=== PATIENT | female | born 1975 | race American Indian/Alaskan Native ===

== ENCOUNTER 2016-10-19 11:21 | Emergency (ER) | payer MEDICARE ==
--- NOTE | 2016-10-19 11:53 | Emergency Department Report ---
Chief Complaint: Chest Pain Stated Complaint: CHEST PAIN/MIGRAINE/SWELLING ON RT SIDE/VOMITTING - HPI History of Present Illness: 41-year-old female past medical history bipolar, migraines, hypertension, diabetes, lupus presents with 5 days of worsening body aches swelling in hands feet, intermittent chest pain and complaint of pain radiating from her neck down to her right arm. Denies any fever or chills or dysuria or abdominal pain , is complaining of chest pain neck pain radiating to arm and swelling of her hands face and feet - ROS Review of Systems: Muscular pain, chest pain, swelling of extremities - Exam Vital Signs: Vital Signs 10/19/16 11:27 Temperature 98.7 F Pulse Rate 92 H Respiratory 20 Rate Blood Pressure 138/91 O2 Sat by Pulse 100 Oximetry Physical Exam: Heart S1-S2, patient awake alert and oriented 3, lungs clear MSE screening note: Focused history and physical exam performed. Due to findings the following was ordered: Screening Assessment/Plan/Differential Dx: Possible lupus flare 1- This initial assessment/diagnostic orders/clinical plan/ treatment(s) is/are subject to change based on pt's health status, clinical progression and re- assessment by fellow clinical providers in the ED. Further treatment and workup at subsequent clinical provers discretion. Patient/guardians urged not to elope from ED as their condition may be serious if not clinically assessed and managed. 2-sedimentation rate, CRP, BMP, troponin, CK, CK-MB, EKG, chest x-ray, C3-C4, UA , urine protein, urine creatinine workup for possible lupus flare 3-EKG sinus ED Disposition for MSE Condition: Stable
[2016-10-19] MEDS ORDERED: ZOFRAN ODT PO ONE ×2 (12:05→15:47)
[2016-10-19 12:27] LABS: Hematocrit 35.3 % (30.3-42.9); Hemoglobin 11.6 gm/dl (10.1-14.3); Mean Corpuscular HGB Conc 33 % (30-34); Mean Corpuscular Hemoglobin 28 pg (28-32); Mean Corpuscular Volume 85 fl (79-97); Platelet Count 417 K/mm3 (140-440); Red Blood Count 4.13 M/mm3 (3.65-5.03); Red Cell Distribution Width 14.8 % (13.2-15.2); White Blood Count 10.1 K/mm3 (4.5-11.0)
[2016-10-19 12:42] LABS: BUN/Creatinine Ratio 6.36; Blood Urea Nitrogen 7 mg/dL (7-17); Carbon Dioxide 25 mmol/L (22-30); Glucose 126 mg/dL (65-100)
[2016-10-19 12:43] LABS: Anion Gap 18 mmol/L; Chloride 97.9 mmol/L (98-107); Sodium 137 mmol/L (137-145)
[2016-10-19 12:45] LABS: Creatine Kinase MB 1.5 ng/mL (0.0-4.0)
[2016-10-19 12:46] LABS: Alanine Aminotransferase 33 units/L (7-56); Albumin 4.3 g/dL (3.9-5); Alkaline Phosphatase 87 units/L (35-129); Bilirubin,Total 0.2 mg/dL (0.1-1.2); Creatine Kinase 203 units/L (30-135); Total Protein 8.5 g/dL (6.3-8.2)
[2016-10-19 12:47] LABS: Bilirubin,Direct < 0.2 mg/dL (0-0.2)
[2016-10-19 12:54] LABS: Erythrocyte Sedimentation Rate 56 mm/Hr (0-20)
[2016-10-19 13:04] LABS: Basophils % (Manual) 0 % (0.0-1.8); Blastocytes % (Manual) 0 %; RBC Morphology Normal
[2016-10-19 13:05] LABS: Diff Status Complete
[2016-10-19 14:05] LABS: Bilirubin,Urine NEG (Negative); Blood,Urine NEG (Negative); Ketones,Urine NEG (Negative); Leukocyte Esterase,Urine NEG (Negative); Mucus,Urine FEW /HPF; Nitrite,Urine NEG (Negative); Protein,Urine <15 mg/dL mg/dL (Negative); Urobilinogen,Urine < 2.0 mg/dL (<2.0)
--- NOTE | 2016-10-19 14:19 | XRay Report ---
Chest 2 views: Compared to 08/05/16. History: Chest pain. Findings: Normal cardiomediastinal silhouette. Trachea is midline. No consolidation, pneumothorax or pleural effusion. Impression: No acute cardiopulmonary findings.
[2016-10-19] MEDS ORDERED: ZOFRAN ODT ONE (15:45)
[2016-10-19] MEDS ORDERED: TYLENOL PO ONE (15:45)
[2016-10-19] MEDS ORDERED: DILAUDID IV ONE (22:47)
[2016-10-19] MEDS ORDERED: MAGNESIUM SULFATE 2GM/50ML 50 ML IV ONE (22:48)
--- NOTE | 2016-10-19 22:54 | Emergency Department Report ---
ED General Adult HPI - General Chief complaint: Chest Pain Stated complaint: CHEST PAIN/MIGRAINE/SWELLING ON RT SIDE/VOMITTING Time Seen by Provider: 10/19/16 22:14 Source: patient, family Mode of arrival: Ambulatory Limitations: No Limitations - History of Present Illness Initial comments: Patient is a 41-year-old female with history of TIA, bipolar affective disorder , lupus, chronic migraines presented today because of right-sided headache radiated down to her right shoulder and now across her chest. Patient states that this is been going on for the last few days. She is on sumatriptan at home and has been taking along with magnesium without significant relief. In the past she has received Dilaudid with relief. She has no fevers, chills, cough, nausea, vomiting, diaphoresis, shortness of breath. Has had headaches like this in the past and sees Dr. Vásquez is her neurologist. She currently does not have a manager engine. No numbness, weakness, difficulty talking. Patient has difficulty walking at baseline and this is not changed. No recent trauma including no falls or car accidents. Severity scale (0 -10): 8 - Related Data Home Medications Medication Instructions Recorded Confirmed Last Taken Albuterol Sulfate [Ventolin HFA] 2 puff INHALATION PRN PRN 04/10/14 08/10/16 09:30 Fluticasone/Salmeterol [Advair 1 inhalation INHALATION BID PRN 04/10/1408/13/14 10:30 Diskus 250-50 mcg] Furosemide 2 tab PO DAILY 04/10/14 08/10/16 03/23/15 08:00 Simvastatin 1 tab PO DAILY 04/10/14 08/10/16 03/23/15 08:00 SUMAtriptan SUCCINATE [Imitrex] 100 mg PO PRN PRN 03/10/15 08/10/16 03/23/15 08: 00 Ferrous Sulfate [Feosol 325 MG tab] 325 mg PO QDAY 08/10/16 08/10/16 Unknown Riboflavin 400 mg PO QDAY 08/10/16 08/10/16 Unknown Previous Rx's Medication Instructions Recorded Last Taken Type Levothyroxine [Synthroid] 137 mcg PO DAILY@0600 #30 tablet 08/12/16 Unknown Rx Lisinopril [Zestril TAB] 20 mg PO DAILY #30 tablet 08/12/16 Unknown Rx Morphine ER [Ms Contin ER] 15 mg PO QDAY PRN #7 tablet 08/12/16 Unknown Rx OLANzapine [ZyPREXA] 15 mg PO DAILY #14 tablet 08/12/16 Unknown Rx Topiramate [Topamax] 200 mg PO DAILY #14 tablet 08/12/16 Unknown Rx HYDROmorphone [Dilaudid] 1 mg PO Q8HR PRN #8 tablet 10/20/16 Unknown Rx Allergies Allergy/AdvReac Type Severity Reaction Status Date / Time aspirin Allergy Hives Verified 08/30/15 14:19 butorphanol tartrate Allergy Seizure Verified 08/30/15 14:19 [From Stadol] latex Allergy Hives Verified 08/30/15 14:19 NSAIDS (Non-Steroidal Allergy Hives Verified 08/05/16 09:32 Anti-Inflamma ED Review of Systems ROS: Stated complaint: CHEST PAIN/MIGRAINE/SWELLING ON RT SIDE/VOMITTING Other details as noted in HPI Comment: All other systems reviewed and negative Constitutional: denies: chills, fever Respiratory: denies: cough, shortness of breath Cardiovascular: chest pain Gastrointestinal: denies: abdominal pain, vomiting Genitourinary: denies: dysuria Skin: denies: rash Neurological: headache. denies: weakness, numbness, paresthesias, confusion, abnormal gait ED Past Medical Hx - Past Medical History Hx Hypertension: Yes Hx Diabetes: Yes (TYPE 2 1995;) Hx GERD: Yes Hx Arthritis: Yes Hx Headaches / Migraines: Yes (MIGRAINES) Hx Seizures: Yes Hx Psychiatric Treatment: Yes Hx Asthma: Yes Additional medical history: lupus. high cholesterol. bipolar. depression. anxiety PANIC ATTACK. Hypothyroidism - Surgical History Hx Breast Surgery: Yes (right lumpectomy) Additional Surgical History: "rectal repair". lump removed from right arm - Social History Smoking Status: Never Smoker Substance Use Type: None - Medications Home Medications: Home Medications Medication Instructions Recorded Confirmed Last Taken Type Albuterol Sulfate [Ventolin HFA] 2 puff INHALATION PRN PRN 04/10/14 08/10/16 09:30 History Fluticasone/Salmeterol [Advair 1 inhalation INHALATION BID PRN 04/10/1408/13/14 10:30 History Diskus 250-50 mcg] Furosemide 2 tab PO DAILY 04/10/14 08/10/16 03/23/15 08:00 History Simvastatin 1 tab PO DAILY 04/10/14 08/10/16 03/23/15 08:00 History SUMAtriptan SUCCINATE [Imitrex] 100 mg PO PRN PRN 03/10/15 08/10/16 03/23/15 08: 00 History Ferrous Sulfate [Feosol 325 MG tab] 325 mg PO QDAY 08/10/16 08/10/16 Unknown History Riboflavin 400 mg PO QDAY 08/10/16 08/10/16 Unknown History Levothyroxine [Synthroid] 137 mcg PO DAILY@0600 #30 tablet 08/12/16 Unknown Rx Lisinopril [Zestril TAB] 20 mg PO DAILY #30 tablet 08/12/16 Unknown Rx Morphine ER [Ms Contin ER] 15 mg PO QDAY PRN #7 tablet 08/12/16 Unknown Rx OLANzapine [ZyPREXA] 15 mg PO DAILY #14 tablet 08/12/16 Unknown Rx Topiramate [Topamax] 200 mg PO DAILY #14 tablet 08/12/16 Unknown Rx HYDROmorphone [Dilaudid] 1 mg PO Q8HR PRN #8 tablet 10/20/16 Unknown Rx ED Physical Exam - General Limitations: No Limitations General appearance: alert, other (tearful, appears in pain) - Head Head exam: Present: atraumatic, normal inspection - Eye Eye exam: Present: PERRL - Neck Neck exam: Present: tenderness (diffuse soft tissue tenderness, no midline tenderness, full range of motion). Absent: meningismus - Respiratory Respiratory exam: Present: normal lung sounds bilaterally. Absent: respiratory distress, wheezes - Cardiovascular Cardiovascular Exam: Present: regular rate, normal rhythm - GI/Abdominal GI/Abdominal exam: Present: soft. Absent: distended, tenderness - Extremities Exam Extremities exam: Absent: tenderness - Neurological Exam Neurological exam: Present: alert, oriented X3, CN II-XII intact, other ( sensation intact in all extremities, strength is 5 out of 5 in all extremities) . Absent: motor sensory deficit - Psychiatric Psychiatric exam: Present: flat affect ED Course Vital Signs 10/19/16 10/19/16 10/19/16 11:27 15:34 22:35 Temperature 98.7 F 98.4 F Pulse Rate 92 H 83 94 H Respiratory 20 20 20 Rate Blood Pressure 138/91 140/99 Blood Pressure 146/100 [Left] O2 Sat by Pulse 100 98 100 Oximetry 10/19/16 10/20/16 10/20/16 23:22 00:11 00:42 Temperature Pulse Rate Respiratory 18 20 20 Rate Blood Pressure Blood Pressure [Left] O2 Sat by Pulse 100 Oximetry - Reevaluation(s) Reevaluation #1: 10/20/16 01:13 Patient reassessed and still having significant pain although there was some improvement with the pain medications. 1 mg of Dilaudid given. 10/20/16 01:14 Reevaluation #2: 10/20/16 01:22 Patient reassessed at this time. Patient's pain is under control. I discussed with the patient the lab findings which were nonspecific. No significant abnormalities. I also explained to her x-ray and EKG did not show any significant abnormalities. I had a discussion with her as well as her parents about whether her pain is well-controlled enough for her to go home and be treated outpatient for her if she would prefer admission. Patient states that her pain is well-controlled enough that she should be able to go home. Family agrees with the plan to go home. They're going to set up a appointment with a manager engine. All questions were answered. 10/20/16 01:25 Reevaluation #3: 10/20/16 01:37 Patient states that she takes Dilaudid by mouth 2 mg when she has severe pain. She does not have any Dilaudid at home at this time. We'll give her a short course of 1 mg Dilaudid until she is able to see her doctors. ED Medical Decision Making - Lab Data Result diagrams: 10/19/16 12:08 10/19/16 12:08 - Medical Decision Making Patient's symptoms are most consistent with a complex migraine, however she is having chest pains so an EKG and labs also done Dilaudid ordered for pain Chest x-ray unremarkable per radiology Labs preordered and are unremarkable. Labs and also been sent for lupus workup which likely not come back in the patient's ED stay. EKG shows normal sinus rhythm without any ST-T changes, no S1Q3, there is a slight T-wave inversion in lead 3. The EKG compared to prior from 08/05/2016 and appears very similar Critical care attestation.: If time is entered above; I have spent that time in minutes in the direct care of this critically ill patient, excluding procedure time. ED Disposition Clinical Impression: Musculoskeletal pain Migraine Qualifiers: Migraine type: without aura Status migrainosus presence: without status migrainosus Intractability: not intractable Qualified Code(s): G43.009 - Migraine without aura, not intractable, without status migrainosus Disposition: DISCHARGED TO HOME OR SELFCARE Is pt being admited?: No Does the pt Need Aspirin: No Condition: Stable Instructions: Musculoskeletal Pain (ED), Migraine Headache (ED) Additional Instructions: Please follow up with the primary care doctor in the next 3-5 days. Please also make appointment with a manager engine as well as a neurologist within the next 1-2 weeks. Return to the emergency room if you have any numbness, weakness , talking or walking, vomiting, vision changes or any other significant new symptoms. Do not drive or operate heavy machinery while taking pain medication as it will make you drowsy. Prescriptions: HYDROmorphone [Dilaudid] 1 mg PO Q8HR PRN #8 tablet PRN Reason: Pain
[2016-10-19] MEDS ORDERED: DECADRON IV ONE (23:02)
[2016-10-19] MEDS ORDERED: REGLAN IV ONE (23:02)
--- NOTE | 2016-10-19 23:50 | Admit Criteria Form ---
Admission Criteria Documentation: CARDIOLOGY GRG Clinical Indications for Admission to Inpatient Care ( Place 'X' for any and all applicable criteria): Hospital admission is needed for appropriate care of the patient because of ANY ONE of the following (1): [ ] I. Hemodynamic instability as indicated by ALL of the following (1)(2)(3) (4)(5) [ ]a) Vital signs or other findings not as expected for chronic patient condition or baseline [ ]b) Instability indicated by ANY ONE of the following: [ ]i) Hypotension [ ]ii) Symptomatic Tachycardia unresponsive to treatment ( e.g., analgesia, fluids, sedation as indicated) [ ]iii) Inadequate perfusion indicated by ANY ONE of the following: [ ] 1) Lactic acidosis (> 2 mmol/L) [ ] 2) New abnormal capillary refill (> 3 seconds) [ ] 3) Reduced urine output [ ] 4) New altered mental status [ ]iv) Orthostatic vital sign changes unresponsive to treatment (e.g., fluids) [ ]v) IV inotropic or vasopressor medication required to maintain adequate blood pressure or perfusion [ ] II. Severe heart failure as indicated by ANY ONE of the following(17)(18) [ ]a) Respiratory distress [ ]b) Hypotension [ ]c) Anasarca (refractory to outpatient therapy) [ ]d) Cardiac arrhythmias of immediate concern [ ]e) Myocardial ischemia [ ] III. Cardiac arrhythmias or findings of immediate concern indicated by ANY ONE of the following (19)(20): [ ] a) Heart rhythms that are inherently dangerous or unstable indicated by ANY ONE of the following (21)(22)(23): [ ] i) Resuscitated ventricular fibrillation or cardiac arrest [ ] ii) Ventricular escape rhythm [ ] iii) Sustained ventricular tachycardia (30 seconds or more of ventricular rhythm at greater than 100 beats per minute) [ ] iv) Nonsustained ventricular tachycardia and ANY ONE of the following: [ ] 1) Suspected cardiac ischemia as cause or consequence of ventricular tachycardia [ ] 2) In setting of acute myocarditis [ ] b) Unstable cardiac conduction defects indicated by ANY ONE of the following(23)(24)(25) [ ] i) Type II second-degree atrioventricular block [ ]ii) Third-degree atrioventricular block [ ]iii) New-onset left bundle branch block with suspected myocardial ischemia [ ]c) Any heart rhythm and ANY ONE of the following (21)(22)(26)(27) (28) [ ] i) Continuous long-term ECG monitoring needed (e.g., initiation of drug requiring monitoring for more than 24 hours) [ ] ii) Patient has automatic implanted cardioverter defibrillator that is repeatedly firing, malfunctioning, or in need of immediate adjustment of settings beyond the scope of ambulatory or observation care [ ]d) Heart rhythms of concern due to ANY ONE of the following: [ ] i) Hypotension [ ] ii) Respiratory distress [ ] iii) Association with other significant symptoms (e.g., bradycardia with syncope or ongoing dizziness, supraventricular tachycardia with chest pain (14)(15)(17) [ ] IV. Monitoring for cardiac contusion beyond the scope of observation care needed [A](30)(31)(32) [ ] V. Surgical or device complication (e.g., valve replacement complication , pacemaker dysfunction) (35)(41)(44)(45)(46) [ ] . Inpatient palliative care needed. [B](49) Also use Inpatient Palliative Care Criteria [ ] VII. Nonbacterial thrombotic (marantic) endocarditis (36)(43)(47)(48) [ X] VIII. Cardiology condition, symptom, or finding for which emergency and observation care has failed or are not considered appropriate. [ ] IX. Acute valvular disease requiring inpatient as indicated by ANY ONE of the following (41) [ ]a) Acute valvular regurgitation (42) [ ]b) Noninfectious valvulitis (43) [ ]c) Obstructive valve thrombosis [ ]d) Paravalvular leak [ ]e) Other significant valvular disorder remaining after emergency or observation level of care (as appropriate) [ ]X. Pericardial disease requiring inpatient treatment as indicated by ANY ONE of the following (33)(34)(35)(36)(37) [ ]a) Suspected tamponade (38)(39)(40) [ ]b) Hemopericardium [ ]c) Other significant pericardial disorder remaining after emergency or observation level of care (as appropriate) [ ] XI. Cardiac ischemia beyond scope of emergency and observation care. [ ] XII. Hypertension requiring inpatient treatment as indicated by ANY ONE of the following (6)(7)(8) [ ]a) SBP greater than 220 mm Hg or DBP greater than 120 mmHg despite treatment [ ]b) SBP greater than 140 mm Hg or DBP greater than 100 mm Hg with evidence of acute end organ damage as indicated by ANY ONE of the following [ ] i) Altered mental status [ ] ii) Acute renal failure as indicated by new onset of ANY ONE of the following (9)(10)(11)(12)(13) [ ]1) 3-fold rise in serum creatinine from baseline [ ]2) Serum creatinine greater than 4 mg/dL ( 354 micromoles/L) with acute rise greater than 0.5 mg/dL (44.2 micromoles/L) [ ]3) Reduction of more than 75% in estimated glomerular filtration rate from baseline [ ]4) Estimated glomerular filtration rate less than 35 mL/min/1.73m2 (0.59 mL/sec/1.73m2) in child up to 18 years of age [ ]5) Cessation of urine output indicated by ALL of the following [ ]A. Adequate volume status [ ]B. Inadequate urine output as indicated by ANY ONE of the following [ ]a. Urine output less than 0.3 mL/kg/hr for 24 hours [ ]b. Anuria (urine output less than 0.1 mL/kg/hr) for 12 hours [ ] iii) Aortic dissection [ ] iv) Myocardial Ischemia [ ] v) Left ventricular heart failure [ ]vi) Retinal Hemorrhage [ ]vii) Other significant finding [ ]c) Hypertension in child requiring inpatient treatment as indicated by ALL of the following(14)(15)(16) [ ] i) Outpatient treatment not effective, not available, or not appropriate [ ]ii) SBP or DBP greater than 95th percentile for age [ ]iii) Evidence of acute end organ damage as indicated by ANY ONE of the following [ ]1) Altered mental status [ ]2) Acute renal failure as indicated by new onset of ANY ONE of the following(9)(10)(11)(12)(13) [ ]A. 3-fold rise in serum creatinine from baseline [ ]B. Serum creatinine greater than 4 mg/dL (354 micromoles/L) with acute rise greater than 0.5 mg/dL (44.2 micromoles/L) [ ]C. Reduction of more than 75% in estimated glomerular filtration rate from baseline [ ]D. Estimated glomerular filtration rate less than 35 mL/min/1.73m2 (0.59 mL/sec/1.73m2) in child up to 18 years of age [ ]E. Cessation of urine output indicated by ALL of the following [ ]a. Adequate volume status [ ]b. Inadequate urine output as indicated by ANY ONE of the following [ ]i) Urine output less than 0.3 mL/kg/hr for 24 hours [ ]ii) Anuria ( urine output less than 0.1 mL/kg/hr) for 12 hours [ ]3) Severe headache [ ]4) Visual disturbance [ ]5) Retinal hemorrhage [ ]6) Other significant finding [ ]XIII. Complications of transplanted heart indicated by ANY ONE of the following(61): [ ]a) Acute graft rejection requiring inpatient management (eg, intravenous immunosuppression)(62)(63) [ ]b) Acute graft heart failure indicated by ANY ONE of the following(64): [ ]i) Hemodynamic instability [ ]ii) Cardiac arrhythmias of immediate concern [ ]iii) Pulmonary edema that is very severe (eg, mechanical ventilation needed, imminent or likely, need for 100% oxygen to keep oxygen saturation above 90%) [ ]iv) Pulmonary edema that is persistent as indicated by ALL of the following: [ ]1) New need for oxygen therapy to keep oxygen saturation above 90% (or increased FiO2 need from baseline) [ ]2) Has not improved sufficiently with emergency department or observation care IV diuretics or other heart failure treatments[E] [ ]v) Altered mental status that is severe or persistent [ ]vi) Increased creatinine (new on laboratory test) with reduction of more than 50% in estimated glomerular filtration rate from baseline [ ]vii) Progressively (ongoing) rising creatinine (known from past laboratory test) with reduction of more than 25% in estimated glomerular filtration rate from baseline [ ]viii) Acute renal failure [ ]ix) Acute peripheral ischemia (eg, examination shows pulseless, cool, mottled, or cyanotic extremity) [ ]x) Pulmonary artery catheter monitoring needed [ ]xi) Other sign or symptom of heart failure requiring inpatient treatment (ie, too severe or not responsive to outpatient and observation care treatment) [ ]c) Infection requiring inpatient management (eg, Hemodynamic instability, need for intravenous antimicrobial treatment)(66)(67)(68)(69)(70) [ ]d) Cardiac allograft vasculopathy requiring inpatient management ( eg evidence of cardiac ischemia)(71) [ ]e) Other complication of transplanted heart (eg, stroke, severe pulmonary hypertension, severe valvular dysfunction) requiring inpatient management(72) The original [facility] content created by [facility] has been revised. The portions of the content which have been revised are identified through the use of italic text or in bold, and [facility] has neither reviewed nor approved the modified material. All other unmodified content is copyright [facility] [employer]. Please see references footnoted in the original [facility] [employer] edition 2016 Admission Criteria Met: Yes
[2016-10-20] MEDS ORDERED: DILAUDID IV ONE (00:27)
[2016-10-20 01:44] VITALS: BP 144/93
== END 2016-10-20 02:15 | disposition home or self-care (01) ==
LOC: ED 11:21
DX: G43.009 Migraine without aura, not intractable, without status migrainosus (principal); M79.1 Myalgia; R07.9 Chest pain, unspecified; I10 Essential (primary) hypertension; E11.9 Type 2 diabetes mellitus without complications; M19.90 Unspecified osteoarthritis, unspecified site; K21.9 Gastro-esophageal reflux disease without esophagitis; R56.9 Unspecified convulsions; J45.909 Unspecified asthma, uncomplicated; E78.00 Pure hypercholesterolemia, unspecified; F32.9 Major depressive disorder, single episode, unspecified; E03.9 Hypothyroidism, unspecified; Z88.6 Allergy status to analgesic agent; Z91.040 Latex allergy status
CPT/HCPCS: 36415; 71020; 80048; 80074; 81001; 81025; 82550; 82553; 82570; 82962; 84166; 84484; 85007; 85025; 85652; 86140; 86160; 86225; 87086; 93005; 93010; 96365; 96375; 96376; 99284; J1100; J1170; J2765; J3475; Q0162

== ENCOUNTER 2017-03-16 11:22 | Emergency (ER) | payer MEDICARE ==
[2017-03-16 12:24] VITALS: BP 116/80
[2017-03-16 13:12] LABS: Hematocrit 33.7 % (30.3-42.9); Hemoglobin 10.9 gm/dl (10.1-14.3); Mean Corpuscular HGB Conc 33 % (30-34); Mean Corpuscular Hemoglobin 26 pg (28-32); Mean Corpuscular Volume 81 fl (79-97); Platelet Count 432 K/mm3 (140-440); Red Blood Count 4.14 M/mm3 (3.65-5.03); Red Cell Distribution Width 12.8 % (13.2-15.2); White Blood Count 8.7 K/mm3 (4.5-11.0)
[2017-03-16 13:59] LABS: Alanine Aminotransferase 11 units/L (7-56); Albumin 3.6 g/dL (3.9-5); Albumin/Globulin Ratio 0.9 %; Alkaline Phosphatase 88 units/L (35-129); Anion Gap 16 mmol/L; BUN/Creatinine Ratio 8.75; Blood Urea Nitrogen 7 mg/dL (7-17); Carbon Dioxide 20 mmol/L (22-30); Chloride 104.7 mmol/L (98-107); Glucose 111 mg/dL (65-100); Potassium 3.6 mmol/L (3.6-5.0); Sodium 137 mmol/L (137-145); Total Protein 7.6 g/dL (6.3-8.2)
[2017-03-16 14:48] LABS: Basophils % (Manual) 0 % (0.0-1.8); Blastocytes % (Manual) 0 %
[2017-03-16 14:49] LABS: Anisocytosis 1+; Diff Status Complete; Ovalocytes 1+; Stomatocytes Rare
== END 2017-03-16 19:40 | disposition left against medical advice (07) ==
LOC: ED 11:22
DX: M32.9 Systemic lupus erythematosus, unspecified (principal); Z53.21 Procedure and treatment not carried out due to patient leaving prior to being seen by health care provider
CPT/HCPCS: 36415; 80053; 81025; 85007; 85025

== ENCOUNTER 2017-11-04 14:41 | Emergency (ER) | payer MEDICARE ==
[2017-11-04] MEDS ORDERED: NACL 0.9% 1000 ML 1,000 ML IV ONE (18:02)
--- NOTE | 2017-11-04 18:04 | Emergency Department Report ---
Blank Doc - Documentation Documentation: She is a 42-year-old female past medical history of fibromyalgia who states that she is having a fibromyalgia flareup since is typical for she says IV pain medicine and fluids help her order blood work and IV pain medicine if workup is unremarkable we'll send patient
[2017-11-04] MEDS ORDERED: MORPHINE ONE ×2 (18:16→20:27)
[2017-11-04] MEDS ORDERED: MORPHINE IV ONE ×2 (18:44→19:56)
[2017-11-04 18:52] LABS: Albumin 4.2 g/dL (3.9-5); BUN/Creatinine Ratio 8; Blood Urea Nitrogen 7 mg/dL (7-17); Calcium 9.5 mg/dL (8.4-10.2); Hemolysis Index 133
[2017-11-04] MEDS ORDERED: SUBLIMAZE IV ONE (19:00)
[2017-11-04 19:05] LABS: Alanine Aminotransferase 15 units/L (7-56)
[2017-11-04] MEDS ORDERED: ZOFRAN IV ONE (19:05)
[2017-11-04] MEDS ORDERED: ZOFRAN ONE (19:07)
[2017-11-04 19:10] LABS: Mean Corpuscular HGB Conc 30 % (30-34); Mean Corpuscular Hemoglobin 27 pg (28-32); Mean Corpuscular Volume 91 fl (79-97); Platelet Count 351 K/mm3 (140-440); Red Cell Distribution Width 14.6 % (13.2-15.2)
[2017-11-04 19:28] LABS: Hematocrit 39.9 % (30.3-42.9); Hemoglobin 11.8 gm/dl (10.1-14.3)
[2017-11-04 20:03] LABS: Anisocytosis 1+; Eosinophils % (Manual) 0 % (0.0-4.3); Total Cells Counted 100
[2017-11-04 20:04] LABS: Hypochromasia 1+; Ovalocytes Few; Platelet Estimate Consistent w Auto; Poikilocytosis Few
--- NOTE | 2017-11-04 20:13 | Emergency Department Report ---
ED General Adult HPI - General Chief complaint: Pain General Stated complaint: FIBROMYALGIA Source: patient Mode of arrival: Wheelchair Limitations: No Limitations - History of Present Illness Initial comments: 42-year-old female past medical history fibromyalgia, ? Drug-seeking behavior, obesity Presents with acute on chronic pain. Patient's screening by Dr. Noland. On my interview patient is awake alert and oriented 3. 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 Onset/Timin -: week(s) Severity scale (0 -10): 9 Quality: aching Consistency: constant Improves with: none Worsens with: none Associated Symptoms: denies other symptoms Treatments Prior to Arrival: none - Related Data Home Medications Medication Instructions Recorded Confirmed Last Taken Albuterol Sulfate [Ventolin HFA] 2 puff INHALATION PRN PRN 04/10/14 08/10/16 09:30 Fluticasone/Salmeterol [Advair 1 inhalation INHALATION BID PRN 04/10/1408/13/14 10:30 Diskus 250-50 mcg] Furosemide 2 tab PO DAILY 04/10/14 08/10/16 03/23/15 08:00 Simvastatin 1 tab PO DAILY 04/10/14 08/10/16 03/23/15 08:00 SUMAtriptan SUCCINATE [Imitrex] 100 mg PO PRN PRN 03/10/15 08/10/16 03/23/15 08: 00 Ferrous Sulfate [Feosol 325 MG tab] 325 mg PO QDAY 08/10/16 08/10/16 Unknown Riboflavin (Vitamin B2) 400 mg PO QDAY 08/10/16 08/10/16 Unknown [Riboflavin] Previous Rx's Medication Instructions Recorded Last Taken Type Levothyroxine [Synthroid] 137 mcg PO DAILY@0600 #30 tablet 08/12/16 Unknown Rx Lisinopril [Zestril TAB] 20 mg PO DAILY #30 tablet 08/12/16 Unknown Rx Morphine ER [Ms Contin ER] 15 mg PO QDAY PRN #7 tablet 08/12/16 Unknown Rx OLANzapine [ZyPREXA] 15 mg PO DAILY #14 tablet 08/12/16 Unknown Rx Topiramate [Topamax] 200 mg PO DAILY #14 tablet 08/12/16 Unknown Rx HYDROmorphone [Dilaudid] 1 mg PO Q8HR PRN #8 tablet 10/20/16 Unknown Rx Allergies Allergy/AdvReac Type Severity Reaction Status Date / Time aspirin Allergy Hives Verified 03/16/17 12:15 butorphanol tartrate Allergy Seizure Verified 03/16/17 12:15 [From Stadol] latex Allergy Hives Verified 03/16/17 12:15 NSAIDS (Non-Steroidal Allergy Hives Verified 03/16/17 12:15 Anti-Inflamma ED Review of Systems ROS: Stated complaint: FIBROMYALGIA Other details as noted in HPI Constitutional: denies: chills, fever Eyes: denies: eye pain, eye discharge, vision change ENT: denies: ear pain, throat pain Respiratory: denies: cough, shortness of breath, wheezing Cardiovascular: denies: chest pain, palpitations Endocrine: no symptoms reported Gastrointestinal: denies: abdominal pain, nausea, diarrhea Genitourinary: denies: urgency, dysuria, discharge Musculoskeletal: denies: back pain, joint swelling, arthralgia Skin: denies: rash, lesions Neurological: denies: headache, weakness, paresthesias Psychiatric: denies: anxiety, depression Hematological/Lymphatic: denies: easy bleeding, easy bruising ED Past Medical Hx - Past Medical History Hx Hypertension: Yes Hx CVA: Yes Hx Diabetes: Yes Hx GERD: Yes Hx Renal Disease: Yes Hx Arthritis: Yes Hx Headaches / Migraines: Yes (MIGRAINES) Hx Seizures: Yes Hx Psychiatric Treatment: Yes Hx Asthma: Yes Additional medical history: lupus. high cholesterol. bipolar. depression. anxiety PANIC ATTACK. Hypothyroidism - Surgical History Hx Breast Surgery: Yes (right lumpectomy) Additional Surgical History: "rectal repair". lump removed from right arm - Social History Smoking Status: Never Smoker Substance Use Type: None - Medications Home Medications: Home Medications Medication Instructions Recorded Confirmed Last Taken Type Albuterol Sulfate [Ventolin HFA] 2 puff INHALATION PRN PRN 04/10/14 08/10/16 09:30 History Fluticasone/Salmeterol [Advair 1 inhalation INHALATION BID PRN 04/10/1408/13/14 10:30 History Diskus 250-50 mcg] Furosemide 2 tab PO DAILY 04/10/14 08/10/16 03/23/15 08:00 History Simvastatin 1 tab PO DAILY 04/10/14 08/10/16 03/23/15 08:00 History SUMAtriptan SUCCINATE [Imitrex] 100 mg PO PRN PRN 03/10/15 08/10/16 03/23/15 08: 00 History Ferrous Sulfate [Feosol 325 MG tab] 325 mg PO QDAY 08/10/16 08/10/16 Unknown History Riboflavin (Vitamin B2) 400 mg PO QDAY 08/10/16 08/10/16 Unknown History [Riboflavin] Levothyroxine [Synthroid] 137 mcg PO DAILY@0600 #30 tablet 08/12/16 Unknown Rx Lisinopril [Zestril TAB] 20 mg PO DAILY #30 tablet 08/12/16 Unknown Rx Morphine ER [Ms Contin ER] 15 mg PO QDAY PRN #7 tablet 08/12/16 Unknown Rx OLANzapine [ZyPREXA] 15 mg PO DAILY #14 tablet 08/12/16 Unknown Rx Topiramate [Topamax] 200 mg PO DAILY #14 tablet 08/12/16 Unknown Rx HYDROmorphone [Dilaudid] 1 mg PO Q8HR PRN #8 tablet 10/20/16 Unknown Rx ED Physical Exam - General Limitations: No Limitations General appearance: alert, in no apparent distress - Head Head exam: Present: atraumatic, normocephalic - Eye Eye exam: Present: normal appearance, PERRL, EOMI - ENT ENT exam: Present: mucous membranes moist - Neck Neck exam: Present: normal inspection - Respiratory Respiratory exam: Present: normal lung sounds bilaterally. Absent: respiratory distress - Cardiovascular Cardiovascular Exam: Present: regular rate, normal rhythm. Absent: systolic murmur, diastolic murmur, rubs, gallop - GI/Abdominal GI/Abdominal exam: Present: soft, normal bowel sounds - Extremities Exam Extremities exam: Present: normal inspection - Back Exam Back exam: Present: normal inspection - Neurological Exam Neurological exam: Present: alert, oriented X3 - Psychiatric Psychiatric exam: Present: normal affect, normal mood - Skin Skin exam: Present: warm, dry, intact, normal color. Absent: rash ED Course Vital Signs 11/04/17 11/04/17 11/04/17 15:08 18:58 20:46 Temperature 97.7 F Pulse Rate 105 H 98 H Respiratory 16 20 20 Rate Blood Pressure 135/76 Blood Pressure 136/76 [Right] O2 Sat by Pulse 98 99 Oximetry ED Medical Decision Making - Lab Data Result diagrams: 11/04/17 18:16 11/04/17 18:16 - Medical Decision Making A/P: Fibromyalgia flare, diffuse body aches 1-pt awake alert and oriented 3, vital signs stable before discharge 2-as per my discussion with Dr. Noland can offer pt tramadol but pt has history of seizures with opiates, will refrain from doing so to mitgate any seizure acitivty. tylenol prn for pain. I also informed Dr. Noland at patient's potassium level was 5.6. As per Dr. Noland this is negligible 3- patient making arrangements to follow-up with in management and primary care Critical care attestation.: If time is entered above; I have spent that time in minutes in the direct care of this critically ill patient, excluding procedure time. ED Disposition Clinical Impression: Fibromyalgia muscle pain Disposition: DC-01 TO HOME OR SELFCARE Is pt being admited?: No Does the pt Need Aspirin: No Condition: Stable Instructions: Fibromyalgia (ED) Referrals: [facility], [facility] [Provider Group] - 3-5 Days PAIN SPECIALIST [facility] [Provider Group] - 3-5 Days Time of Disposition: 20:19
[2017-11-04 20:46] VITALS: BP 136/76
== END 2017-11-04 20:45 | disposition home or self-care (01) ==
LOC: ED 14:41
DX: M79.7 Fibromyalgia (principal); Z86.73 Personal history of transient ischemic attack (TIA), and cerebral infarction without residual deficits; E11.9 Type 2 diabetes mellitus without complications; M19.90 Unspecified osteoarthritis, unspecified site; G43.909 Migraine, unspecified, not intractable, without status migrainosus; R56.9 Unspecified convulsions; J45.909 Unspecified asthma, uncomplicated; E78.00 Pure hypercholesterolemia, unspecified; F31.9 Bipolar disorder, unspecified; I10 Essential (primary) hypertension; Z88.6 Allergy status to analgesic agent; Z88.8 Allergy status to other drugs, medicaments and biological substances; Z91.040 Latex allergy status
CPT/HCPCS: 36415; 80053; 85007; 85025; 96361; 96374; 96376; 99283; J2270; J2405; J7030

== ENCOUNTER 2017-11-17 21:33 | Emergency (ER) | payer MEDICARE ==
[2017-11-17 22:07] VITALS: BP 140/95
--- NOTE | 2017-11-17 23:27 | XRay Report ---
FINAL REPORT PROCEDURE: Three-view lumbar sacral spine series TECHNIQUE: Lumbar spine radiographs, including AP, lateral, and lumbosacral spot views. CPT 25296 HISTORY: Back pain. COMPARISON: No prior studies are available for comparison. FINDINGS: No fracture or subluxation is visualized. There is mild degenerative disc disease extending from T12-L1 to the L4-5 disc space very small anterior osteophytic spurs present. Disc spaces otherwise are well preserved. Posterior elements appear intact. Facet arthritis appears to be present at the L5-S1 level bilateral IMPRESSION: Mild diffuse degenerative disc disease as described.. Facet arthritis visualized inferiorly. No other abnormalities are identified..
[2017-11-17] MEDS ORDERED: NORCO 5/325 PO ONE (23:57)
--- NOTE | 2017-11-18 00:02 | Emergency Department Report ---
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 and felt low back pain pain described as 5/10 radiating from low back down to right leg burning sensation pain is exacerbated by prolonged standing walking bending twisting patient denies numbness or weakness no paresthesia no loss of decrease in bowel or bladder function patient remains ambulatory to baseline per patient MD Complaint: back pain, back injury Onset/Timin -: days(s) Similar Symptoms Previously: Yes Place: street Radiation: left leg Severity: moderate Severity scale (0 -10): 5 Quality: burning, sharp Consistency: intermittent Improves With: none Worsens With: movement, other (bending twisting ) Context: turning/twisting, bending Associated Symptoms: denies: weakness, chest pain, numbness, difficulty walking , cough, difficulty urinating, diaphoresis, incontinence, fever/chills, constipation, headaches, abdominal pain, loss of appetite, malaise, nausea/ vomiting, rash, seizure, shortness of breath, syncope - Related Data Home Medications Medication Instructions Recorded Confirmed Last Taken Albuterol Sulfate [Ventolin HFA] 2 puff INHALATION PRN PRN 04/10/14 08/10/16 09:30 Fluticasone/Salmeterol [Advair 1 inhalation INHALATION BID PRN 04/10/1408/13/14 10:30 Diskus 250-50 mcg] Furosemide 2 tab PO DAILY 04/10/14 08/10/16 03/23/15 08:00 Simvastatin 1 tab PO DAILY 04/10/14 08/10/16 03/23/15 08:00 SUMAtriptan SUCCINATE [Imitrex] 100 mg PO PRN PRN 03/10/15 08/10/16 03/23/15 08: 00 Ferrous Sulfate [Feosol 325 MG tab] 325 mg PO QDAY 08/10/16 08/10/16 Unknown Riboflavin (Vitamin B2) 400 mg PO QDAY 08/10/16 08/10/16 Unknown [Riboflavin] Previous Rx's Medication Instructions Recorded Last Taken Type Levothyroxine [Synthroid] 137 mcg PO DAILY@0600 #30 tablet 08/12/16 Unknown Rx Lisinopril [Zestril TAB] 20 mg PO DAILY #30 tablet 08/12/16 Unknown Rx Morphine ER [Ms Contin ER] 15 mg PO QDAY PRN #7 tablet 08/12/16 Unknown Rx OLANzapine [ZyPREXA] 15 mg PO DAILY #14 tablet 08/12/16 Unknown Rx Topiramate [Topamax] 200 mg PO DAILY #14 tablet 08/12/16 Unknown Rx HYDROmorphone [Dilaudid] 1 mg PO Q8HR PRN #8 tablet 10/20/16 Unknown Rx Acetaminophen [Tylenol Extra 1,000 mg PO QID PRN #60 tablet 11/18/17 Unknown Rx Strength] Cyclobenzaprine [Flexeril] 10 mg PO TID PRN #30 tablet 11/18/17 Unknown Rx Menthol/Camphor [[place] 1 applicatio TP BID PRN #1 tube 11/18/17 Unknown Rx Ointment] Allergies Allergy/AdvReac Type Severity Reaction Status Date / Time aspirin Allergy Hives Verified 03/16/17 12:15 butorphanol tartrate Allergy Seizure Verified 03/16/17 12:15 [From Stadol] latex Allergy Hives Verified 03/16/17 12:15 NSAIDS (Non-Steroidal Allergy Hives Verified 03/16/17 12:15 Anti-Inflamma ED Review of Systems ROS: Stated complaint: LOWER BACK PAIN Other details as noted in HPI Constitutional: denies: chills, fever Eyes: denies: eye pain, eye discharge, vision change ENT: denies: ear pain, throat pain Respiratory: denies: cough, shortness of breath, wheezing Cardiovascular: denies: chest pain, palpitations Endocrine: no symptoms reported Gastrointestinal: denies: abdominal pain, nausea, diarrhea Genitourinary: denies: urgency, dysuria, discharge Musculoskeletal: denies: back pain, joint swelling, arthralgia Skin: denies: rash, lesions Neurological: denies: headache, weakness, paresthesias Psychiatric: denies: anxiety, depression Hematological/Lymphatic: denies: easy bleeding, easy bruising ED Past Medical Hx - Past Medical History Hx Hypertension: Yes Hx CVA: Yes Hx Diabetes: Yes Hx GERD: Yes Hx Renal Disease: Yes Hx Arthritis: Yes Hx Headaches / Migraines: Yes (MIGRAINES) Hx Seizures: Yes Hx Psychiatric Treatment: Yes Hx Asthma: Yes Additional medical history: lupus. high cholesterol. bipolar. depression. anxiety PANIC ATTACK. Hypothyroidism - Surgical History Hx Breast Surgery: Yes (right lumpectomy) Additional Surgical History: "rectal repair". lump removed from right arm - Social History Smoking Status: Never Smoker Substance Use Type: None - Medications Home Medications: Home Medications Medication Instructions Recorded Confirmed Last Taken Type Albuterol Sulfate [Ventolin HFA] 2 puff INHALATION PRN PRN 04/10/14 08/10/16 09:30 History Fluticasone/Salmeterol [Advair 1 inhalation INHALATION BID PRN 04/10/1408/13/14 10:30 History Diskus 250-50 mcg] Furosemide 2 tab PO DAILY 04/10/14 08/10/16 03/23/15 08:00 History Simvastatin 1 tab PO DAILY 04/10/14 08/10/16 03/23/15 08:00 History SUMAtriptan SUCCINATE [Imitrex] 100 mg PO PRN PRN 03/10/15 08/10/16 03/23/15 08: 00 History Ferrous Sulfate [Feosol 325 MG tab] 325 mg PO QDAY 08/10/16 08/10/16 Unknown History Riboflavin (Vitamin B2) 400 mg PO QDAY 08/10/16 08/10/16 Unknown History [Riboflavin] Levothyroxine [Synthroid] 137 mcg PO DAILY@0600 #30 tablet 08/12/16 Unknown Rx Lisinopril [Zestril TAB] 20 mg PO DAILY #30 tablet 08/12/16 Unknown Rx Morphine ER [Ms Contin ER] 15 mg PO QDAY PRN #7 tablet 08/12/16 Unknown Rx OLANzapine [ZyPREXA] 15 mg PO DAILY #14 tablet 08/12/16 Unknown Rx Topiramate [Topamax] 200 mg PO DAILY #14 tablet 08/12/16 Unknown Rx HYDROmorphone [Dilaudid] 1 mg PO Q8HR PRN #8 tablet 10/20/16 Unknown Rx Acetaminophen [Tylenol Extra 1,000 mg PO QID PRN #60 tablet 11/18/17 Unknown Rx Strength] Cyclobenzaprine [Flexeril] 10 mg PO TID PRN #30 tablet 11/18/17 Unknown Rx Menthol/Camphor [[place] 1 applicatio TP BID PRN #1 tube 11/18/17 Unknown Rx Ointment] ED Physical Exam - General Limitations: No Limitations General appearance: alert, in no apparent distress - Head Head exam: Present: atraumatic, normocephalic - Eye Eye exam: Present: normal appearance, PERRL, EOMI Pupils: Present: normal accommodation - ENT ENT exam: Present: mucous membranes moist - Neck Neck exam: Present: normal inspection. Absent: tenderness, full ROM, lymphadenopathy, thyromegaly - Respiratory Respiratory exam: Present: normal lung sounds bilaterally. Absent: respiratory distress, chest wall tenderness - Cardiovascular Cardiovascular Exam: Present: regular rate, normal rhythm. Absent: systolic murmur, diastolic murmur, rubs, gallop - GI/Abdominal GI/Abdominal exam: Present: soft, normal bowel sounds. Absent: distended, tenderness, guarding, rebound, rigid, organomegaly, mass, bruit, pulsatile mass , hernia - Rectal Rectal exam: Present: deferred - Extremities Exam Extremities exam: Present: normal inspection, full ROM, normal capillary refill (. She is to see laceration initiation). Absent: tenderness, pedal edema, joint swelling, calf tenderness - Back Exam Back exam: Present: normal inspection, muscle spasm, paraspinal tenderness. Absent: tenderness (there is no posterior vertebral point tenderness no swelling no erythema no deformity ), CVA tenderness (R), CVA tenderness (L), vertebral tenderness - Expanded Back Exam Expanded Back exam: Absent: saddle anesthesia Back exam: Sciatic Notch Tenderness: Right, Positive Straight Leg Raise: Right, Negative Straight Leg Raising: Left - Neurological Exam Neurological exam: Present: alert, oriented X3, CN II-XII intact, normal gait, reflexes normal. Absent: motor sensory deficit - Expanded Neurological Exam Expanded Patient oriented to: Present: person, place, time Speech: Present: fluid speech Cranial nerves: EOM's Intact: Normal, Gag Reflex: Normal, Tongue Deviation: Normal, Nystagmus: Normal Cerebellar function: Finger to Nose: Normal, Heel to Robin: Normal, Romberg: Normal Upper motor neuron: Zain Neglect: Normal, Pronator Drift: Normal, Babinski Sign : Normal, Sensory Extinction: Normal Sensory exam: Upper Extremity Light Touch: Normal, Upper Extremity Pin Prick: Normal, Upper Extremity Temperature: Normal, UE 2 Point Discrimination: Normal, Lower Extremity Light Touch: Normal, Lower Extremity Pin Prick: Normal, Lower Extremity Temperature: Normal, LE 2 Point Discrimination: Normal Motor strength exam: RUE: 5, LUE: 5, RLE: 5, LLE: 5 DTR: bicep (R): 2+, bicep (L): 2+, tricep (R): 2+, tricep (L): 2+, knee (R): 2+ , knee (L): 2+, ankle (R): 2+, ankle (L): 2+ Best Eye Response (Johan): (4) open spontaneously Best Motor Response ([place]): (6) obeys commands Best Verbal Response (Johan): (5) oriented [place] Total: 15 - Psychiatric Psychiatric exam: Present: normal affect, normal mood - Skin Skin exam: Present: warm, dry, intact, normal color. 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 and felt low back pain pain described as 5/10 radiating from low back down to right leg burning sensation pain is exacerbated by prolonged standing walking bending twisting patient denies numbness or weakness no paresthesia no loss of decrease in bowel or bladder function patient remains ambulatory to baseline per patient pt is currently ambulatory with 3/10 pain back exam no swelling no ecchymosis no swelling deformity no posterior vertebral point tenderness, pos straight leg raise right, rom restricted by pain , xray: demonstrates no acute fracture, chronic djd, plan: pt is currently follow by pain management for chronic low back pain and fibromyalgyia currently on ultram po, plan: Naproxen, po bid, Flexeril, Voltaren oint, follow up with pain management doctor as scheduled see pcp in 2-3 days, moist heat therapy back exercises, pt verbalized agreement and understanding of discharge plan. Critical care attestation.: If time is entered above; I have spent that time in minutes in the direct care of this critically ill patient, excluding procedure time. ED Disposition Clinical Impression: Low back strain Qualifiers: Encounter type: initial encounter Qualified Code(s): S39.012A - Strain of muscle, fascia and tendon of lower back, initial encounter Chronic low back pain Qualifiers: Back pain laterality: right Sciatica presence: with sciatica Sciatica laterality: sciatica of right side Qualified Code(s): M54.41 - Lumbago with sciatica, right side; G89.29 - Other chronic pain; G89.29 - Other chronic pain Disposition: TO HOME OR SELFCARE Is pt being admited?: No Does the pt Need Aspirin: No Condition: Good Instructions: Low Back Strain (ED), Core Strengthening Exercises (GEN) Prescriptions: Acetaminophen [Tylenol Extra Strength] 1,000 mg PO QID PRN #60 tablet PRN Reason: Pain Cyclobenzaprine [Flexeril] 10 mg PO TID PRN #30 tablet PRN Reason: Muscle Spasm Menthol/Camphor [[place] Ointment] 1 applicatio TP BID PRN #1 tube PRN Reason: Pain Referrals: LOUISA SANDERS MD [Primary Care Provider] - 3-5 Days Forms: Work/School Release Form(ED) Time of Disposition: 00:13
== END 2017-11-18 00:18 | disposition home or self-care (01) ==
LOC: ED 21:33
DX: S39.012A Strain of muscle, fascia and tendon of lower back, initial encounter (principal); M79.1 Myalgia; M32.9 Systemic lupus erythematosus, unspecified; Z91.040 Latex allergy status; Z88.6 Allergy status to analgesic agent; I10 Essential (primary) hypertension; E11.9 Type 2 diabetes mellitus without complications; K21.9 Gastro-esophageal reflux disease without esophagitis; J45.909 Unspecified asthma, uncomplicated; F31.9 Bipolar disorder, unspecified; F41.0 Panic disorder [episodic paroxysmal anxiety]; E78.00 Pure hypercholesterolemia, unspecified; E03.9 Hypothyroidism, unspecified; X58.XXXA Exposure to other specified factors, initial encounter; Y93.89 Activity, other specified; Y92.89 Other specified places as the place of occurrence of the external cause; Y99.8 Other external cause status
CPT/HCPCS: 72100; 99283

== ENCOUNTER 2017-12-10 09:13 | Emergency (ER) | payer MEDICARE ==
[2017-12-10 10:16] LABS: Basophils % (Auto) 0.4 % (0.0-1.8); Eosinophils # (Auto) 0.1 K/mm3 (0.0-0.4); Eosinophils % (Auto) 1.5 % (0.0-4.3); Hematocrit 33.4 % (30.3-42.9); Hemoglobin 10.5 gm/dl (10.1-14.3); Lymphocytes # (Auto) 2.2 K/mm3 (1.2-5.4); Lymphocytes % (Auto) 24.1 % (13.4-35.0); Mean Corpuscular HGB Conc 32 % (30-34); Mean Corpuscular Hemoglobin 27 pg (28-32); Mean Corpuscular Volume 86 fl (79-97); Monocytes # (Auto) 0.5 K/mm3 (0.0-0.8); Monocytes % (Auto) 5.2 % (0.0-7.3); Platelet Count 322 K/mm3 (140-440); Red Blood Count 3.87 M/mm3 (3.65-5.03)
[2017-12-10 10:27] LABS: INR 0.89 (0.87-1.13)
[2017-12-10 10:28] LABS: Partial Thromboplastin Time 29.8 Sec. (24.2-36.6)
[2017-12-10 10:31] LABS: BUN/Creatinine Ratio 11; Blood Urea Nitrogen 9 mg/dL (7-17); Hemolysis Index 59
--- NOTE | 2017-12-10 11:03 | Cat Scan Report ---
CT scan of head without IV contrast: History: Left neck pain and left-sided weakness history of CVA. Findings: Ventricles are normal in size and midline in location. No evidence of acute ischemic, hemorrhage or mass. No extra axial fluid collection. Normal brainstem and cerebellum. Impression: No acute intracranial abnormality.
[2017-12-10] MEDS ORDERED: ZOFRAN IM ONE (19:01)
[2017-12-10] MEDS ORDERED: MORPHINE IM ONE (19:01)
--- NOTE | 2017-12-10 19:06 | Emergency Department Report ---
ED Neck Pain/Injury HPI - General Chief Complaint: Neuro Symptoms/Deficit Stated Complaint: NECK PAIN Time Seen by Provider: 12/10/17 18:47 Mode of arrival: Wheelchair Limitations: No Limitations - History of Present Illness Initial Comments: Patient is 42 years old female history of lupus and degenerative disc disease on chronic pain medication Ultram and followed by pain medicine clinic. Patient presented to the ER with chief complaint of neck pain that is started all of a sudden. Patient stated that her pain is sharp and radiated to her left arm and left lower extremity. Patient denied any fever, no injury. Patient denied any weakness numbness or tingling sensation. No bowel or bladder incontinence. MD Complaint: neck pain -: Sudden Place: home Radiation: left shoulder, left upper extremity Severity: moderate Severity scale (0 -10): 7 Quality: sharp Worsens With: none Associated Symptoms: none - Related Data Home Medications Medication Instructions Recorded Confirmed Last Taken Albuterol Sulfate [Ventolin HFA] 2 puff INHALATION PRN PRN 04/10/14 12/10/17 09:30 Fluticasone/Salmeterol [Advair 1 inhalation INHALATION BID PRN 04/10/1408/13/14 10:30 Diskus 250-50 mcg] Furosemide 2 tab PO DAILY 04/10/14 12/10/17 03/23/15 08:00 Simvastatin 1 tab PO DAILY 04/10/14 12/10/17 03/23/15 08:00 SUMAtriptan SUCCINATE [Imitrex] 100 mg PO PRN PRN 03/10/15 12/10/17 03/23/15 08: 00 Ferrous Sulfate [Feosol 325 MG tab] 325 mg PO QDAY 08/10/16 12/10/17 Unknown Riboflavin (Vitamin B2) 400 mg PO QDAY 08/10/16 12/10/17 Unknown [Riboflavin] Amitriptyline [Elavil] 100 mg PO QHS 12/10/17 12/10/17 Unknown Chlorzoxazone 500 mg PO DAILY 12/10/17 12/10/17 Unknown Dexlansoprazole [Dexilant] 60 mg PO QDAY 12/10/17 12/10/17 Unknown Doxepin HCl [Silenor] 3 mg PO QHS 12/10/17 12/10/17 Unknown Duloxetine HCl [DULoxetine] 60 mg PO DAILY 12/10/17 12/10/17 Unknown Hydroxychloroquine [Plaquenil] 200 mg PO QDAY 12/10/17 12/10/17 Unknown Levothyroxine [Synthroid] 125 mcg PO DAILY@0600 12/10/17 12/10/17 Unknown Losartan [Cozaar] 100 mg PO QDAY 12/10/17 12/10/17 Unknown Lubiprostone (Nf) [Amitiza Cap 24 mcg PO DAILY 12/10/17 12/10/17 Unknown (Nf)] Lurasidone HCl [Latuda] 120 mg PO QDAY 12/10/17 12/10/17 Unknown Pregabalin [Lyrica] 150 mg PO DAILY 12/10/17 12/10/17 Unknown Promethazine HCl [Promethazine TAB] 25 mg PO Q6H PRN 12/10/17 12/10/17 Unknown Tizanidine HCl [tiZANidine] 2 mg PO DAILY 12/10/17 12/10/17 Unknown clonazePAM [Klonopin] 0.5 mg PO DAILY 12/10/17 12/10/17 Unknown traMADol [Ultram] 50 mg PO BID 12/10/17 12/10/17 Unknown Previous Rx's Medication Instructions Recorded Last Taken Type Topiramate [Topamax] 200 mg PO DAILY #14 tablet 08/12/16 Unknown Rx Acetaminophen [Tylenol Extra 1,000 mg PO QID PRN #60 tablet 11/18/17 Unknown Rx Strength] Cyclobenzaprine [Flexeril] 10 mg PO TID PRN #30 tablet 11/18/17 Unknown Rx Menthol/Camphor [[place] 1 applicatio TP BID PRN #1 tube 11/18/17 Unknown Rx Ointment] Allergies Allergy/AdvReac Type Severity Reaction Status Date / Time aspirin Allergy Hives Verified 03/16/17 12:15 butorphanol tartrate Allergy Seizure Verified 03/16/17 12:15 [From Stadol] latex Allergy Hives Verified 03/16/17 12:15 NSAIDS (Non-Steroidal Allergy Hives Verified 03/16/17 12:15 Anti-Inflamma ED Review of Systems ROS: Stated complaint: NECK PAIN Other details as noted in HPI Comment: All other systems reviewed and negative Constitutional: denies: chills, fever Respiratory: denies: cough, orthopnea, shortness of breath, SOB with exertion, SOB at rest Cardiovascular: denies: chest pain, palpitations, dyspnea on exertion Gastrointestinal: denies: abdominal pain, nausea, vomiting, diarrhea, constipation, hematemesis, hematochezia Musculoskeletal: denies: back pain, joint swelling Neurological: denies: headache, weakness, numbness, paresthesias, confusion, abnormal gait, vertigo ED Past Medical Hx - Past Medical History Previous Medical History?: Yes Hx Hypertension: Yes Hx CVA: Yes Hx Diabetes: Yes Hx GERD: Yes Hx Renal Disease: Yes Hx Arthritis: Yes Hx Headaches / Migraines: Yes (MIGRAINES) Hx Seizures: Yes Hx Psychiatric Treatment: Yes Hx Asthma: Yes Additional medical history: lupus. high cholesterol. bipolar. depression. anxiety PANIC ATTACK. Hypothyroidism - Surgical History Past Surgical History?: Yes Hx Breast Surgery: Yes (right lumpectomy) Additional Surgical History: "rectal repair". lump removed from right arm - Social History Smoking Status: Never Smoker Substance Use Type: Alcohol, Prescribed - Medications Home Medications: Home Medications Medication Instructions Recorded Confirmed Last Taken Type Albuterol Sulfate [Ventolin HFA] 2 puff INHALATION PRN PRN 04/10/14 12/10/17 09:30 History Fluticasone/Salmeterol [Advair 1 inhalation INHALATION BID PRN 04/10/1408/13/14 10:30 History Diskus 250-50 mcg] Furosemide 2 tab PO DAILY 04/10/14 12/10/17 03/23/15 08:00 History Simvastatin 1 tab PO DAILY 04/10/14 12/10/17 03/23/15 08:00 History SUMAtriptan SUCCINATE [Imitrex] 100 mg PO PRN PRN 03/10/15 12/10/17 03/23/15 08: 00 History Ferrous Sulfate [Feosol 325 MG tab] 325 mg PO QDAY 08/10/16 12/10/17 Unknown History Riboflavin (Vitamin B2) 400 mg PO QDAY 08/10/16 12/10/17 Unknown History [Riboflavin] Topiramate [Topamax] 200 mg PO DAILY #14 tablet 08/12/16 12/10/17 Unknown Rx Acetaminophen [Tylenol Extra 1,000 mg PO QID PRN #60 tablet 02/24/18 03/18/18 Unknown Rx Strength] Cyclobenzaprine [Flexeril] 10 mg PO TID PRN #30 tablet 11/18/17 12/10/17 Unknown Rx Menthol/Camphor [[place] 1 applicatio TP BID PRN #1 tube 11/18/17 12/10/17 Unknown Rx Ointment] Amitriptyline [Elavil] 100 mg PO QHS 12/10/17 12/10/17 Unknown History Chlorzoxazone 500 mg PO DAILY 12/10/17 12/10/17 Unknown History Dexlansoprazole [Dexilant] 60 mg PO QDAY 12/10/17 12/10/17 Unknown History Doxepin HCl [Silenor] 3 mg PO QHS 12/10/17 12/10/17 Unknown History Duloxetine HCl [DULoxetine] 60 mg PO DAILY 12/10/17 12/10/17 Unknown History Hydroxychloroquine [Plaquenil] 200 mg PO QDAY 12/10/17 12/10/17 Unknown History Levothyroxine [Synthroid] 125 mcg PO DAILY@0600 12/10/17 12/10/17 Unknown History Losartan [Cozaar] 100 mg PO QDAY 12/10/17 12/10/17 Unknown History Lubiprostone (Nf) [Amitiza Cap 24 mcg PO DAILY 12/10/17 12/10/17 Unknown History (Nf)] Lurasidone HCl [Latuda] 120 mg PO QDAY 12/10/17 12/10/17 Unknown History Pregabalin [Lyrica] 150 mg PO DAILY 12/10/17 12/10/17 Unknown History Promethazine HCl [Promethazine TAB] 25 mg PO Q6H PRN 12/10/17 12/10/17 Unknown History Tizanidine HCl [tiZANidine] 2 mg PO DAILY 12/10/17 12/10/17 Unknown History clonazePAM [Klonopin] 0.5 mg PO DAILY 12/10/17 12/10/17 Unknown History traMADol [Ultram] 50 mg PO BID 12/10/17 12/10/17 Unknown History ED Physical Exam - General Limitations: No Limitations General appearance: alert, in no apparent distress - Head Head exam: Present: atraumatic, normocephalic - Eye Eye exam: Present: normal appearance, PERRL - ENT ENT exam: Present: normal exam, normal orophraynx, mucous membranes moist - Neck Neck exam: Present: normal inspection, other (decreased range of motion). Absent: tenderness, meningismus, lymphadenopathy, thyromegaly - Respiratory Respiratory exam: Present: normal lung sounds bilaterally. Absent: respiratory distress, chest wall tenderness - Cardiovascular Cardiovascular Exam: Present: regular rate, normal rhythm, normal heart sounds - GI/Abdominal GI/Abdominal exam: Present: soft, normal bowel sounds. Absent: distended, tenderness, guarding, rebound, rigid, mass, bruit, pulsatile mass - Extremities Exam Extremities exam: Present: normal inspection, full ROM, normal capillary refill - Back Exam Back exam: Present: normal inspection, full ROM. Absent: CVA tenderness (R), CVA tenderness (L) - Neurological Exam Neurological exam: Present: alert, oriented X3, CN II-XII intact, normal gait, reflexes normal. Absent: abnormal gait, motor sensory deficit - Skin Skin exam: Present: warm, intact, normal color ED Course Vital Signs 12/10/17 12/10/17 12/10/17 09:33 14:43 15:10 Temperature 98.1 F 98.5 F Pulse Rate 108 H 94 H Respiratory 16 18 Rate Blood Pressure 117/96 170/116 Blood Pressure 150/98 [Right] O2 Sat by Pulse 98 100 Oximetry 12/10/17 12/10/17 20:15 20:16 Temperature 98.5 F Pulse Rate 95 H Respiratory 20 20 Rate Blood Pressure Blood Pressure 112/77 [Right] O2 Sat by Pulse 99 Oximetry ED Medical Decision Making - Lab Data Result diagrams: 12/10/17 09:58 12/10/17 09:58 - Radiology Data Radiology results: report reviewed Referring Physician: TONJA VARGAS Patient Name: BERT MISTRY Date of : 1975 Sex: Female Report Date: 2017-12-10 Report Status: Finalized Findings [facility] [address] [place] [address] XRay Report Signed Patient: BERT MISTRY MR#: [id number] : 1975 Acct:[id number] Age/Sex: 42 / F ADM Date: 12/10/17 Loc: ED Attending Dr: Ordering Physician: TONJA VARGAS Date of Service: 12/10/17 Procedure(s): XR spine cervical 2-3V Accession Number(s): [id number] cc: TONJA VARGAS Fluoro Time In Minutes: FINAL REPORT PROCEDURE: XR SPINE CERVICAL 2-3V TECHNIQUE: Cervical spine radiographs, AP, lateral, and open-mouth odontoid views. CPT 40447 HISTORY: neck pain COMPARISON: No prior studies are available for comparison. FINDINGS: Prevertebral soft tissues: Normal . Alignment: There is loss of cervical lordosis.. Vertebral body heights/Disk spaces: Narrowing of intervertebral disc spaces noted at C3-4 and C5-6. Moderate degree anterior osteophyte formation is noted at C5-6.. Fracture(s): None . Facets: Normal . Bone mineralization: Normal . IMPRESSION: Degenerative disc disease at C3-4 and C5-6 Transcribed By: [facility] Dictated By: AMERICO REDDY Electronically Authenticated By: AMERICO REDDY Signed Date/Time: 12/10/172011 Referring Physician: SARA BRIONES Patient Name: BERT MISTRY Date of : 1975 Sex: Female Report Date: 2017-12-10 Report Status: Finalized Findings [facility] [address] [place] [address] Cat Scan Report Signed Patient: BERT MISTRY MR#: [id number] : 1975 Acct:[id number] Age/Sex: 42 / F ADM Date: 12/10/17 Loc: ED Attending Dr: Ordering Physician: SARA BRIONES MD Date of Service: 12/10/17 Procedure(s): CT head/brain wo con Accession Number(s): [id number] cc: SARA BRIONES MD CT scan of head without IV contrast: History: Left neck pain and left-sided weakness history of CVA. Findings: Ventricles are normal in size and midline in location. No evidence of acute ischemic, hemorrhage or mass. No extra axial fluid collection. Normal brainstem and cerebellum. Impression: No acute intracranial abnormality. Transcribed By: PTP Dictated By: DENNISE FRIEDMAN MD Electronically Authenticated By: DENNISE FRIEDMAN MD Signed Date/Time: 12/10/171043 DD/ 42 TD/TT: 12/10/171043 DD/ 11 TD/TT: 12/10/172011 Critical care attestation.: If time is entered above; I have spent that time in minutes in the direct care of this critically ill patient, excluding procedure time. ED Disposition Clinical Impression: Neck pain, acute, Cervical radiculopathy Disposition: - TO HOME OR SELFCARE Is pt being admited?: No Condition: Stable Instructions: Cervical Radiculopathy (ED) Referrals: PRIMARY CAREMD [Primary Care Provider] - 3-5 Days
--- NOTE | 2017-12-10 20:16 | XRay Report ---
FINAL REPORT PROCEDURE: XR SPINE CERVICAL 2-3V TECHNIQUE: Cervical spine radiographs, AP, lateral, and open-mouth odontoid views. CPT 35895 HISTORY: neck pain COMPARISON: No prior studies are available for comparison. FINDINGS: Prevertebral soft tissues: Normal . Alignment: There is loss of cervical lordosis.. Vertebral body heights/Disk spaces: Narrowing of intervertebral disc spaces noted at C3-4 and C5-6. Moderate degree anterior osteophyte formation is noted at C5-6.. Fracture(s): None . Facets: Normal . Bone mineralization: Normal . IMPRESSION: Degenerative disc disease at C3-4 and C5-6
[2017-12-10 20:17] VITALS: BP 112/77
== END 2017-12-10 21:41 | disposition home or self-care (01) ==
LOC: ED 09:13
DX: M54.12 Radiculopathy, cervical region (principal); I10 Essential (primary) hypertension; E11.9 Type 2 diabetes mellitus without complications; K21.9 Gastro-esophageal reflux disease without esophagitis; M19.90 Unspecified osteoarthritis, unspecified site; E78.00 Pure hypercholesterolemia, unspecified; G43.909 Migraine, unspecified, not intractable, without status migrainosus; Z86.73 Personal history of transient ischemic attack (TIA), and cerebral infarction without residual deficits; Z88.8 Allergy status to other drugs, medicaments and biological substances; Z88.6 Allergy status to analgesic agent; Z91.040 Latex allergy status
CPT/HCPCS: 36415; 70450; 72040; 80048; 84484; 85025; 85610; 85670; 85730; 96372; 99285; J2270; J2405

== ENCOUNTER 2018-01-20 07:39 | Emergency (ER) | payer MEDICARE ==
[2018-01-20 09:42] LABS: Bacteria,Urine 1+ /HPF (Negative); Bilirubin,Urine NEG (Negative); Blood,Urine SM (Negative); Color,Urine Yellow (Yellow); Mucus,Urine FEW /HPF; Protein,Urine <15 mg/dL mg/dL (Negative); Urobilinogen,Urine < 2.0 mg/dL (<2.0)
[2018-01-20] MEDS ORDERED: NACL 0.9% 1000 ML 1,000 ML IV ONE (09:44)
[2018-01-20 09:47] LABS: HCG Qualitative,Urine Negative (Negative)
--- NOTE | 2018-01-20 10:38 | Emergency Department Report ---
HPI - General Chief Complaint: GI Bleed Time Seen by Provider: 01/20/18 10:14 - HPI HPI: Room 25 The patient is a 42-year-old female presented with a chief complaint of abdominal pain and rectal bleeding. The patient states she began having rectal bleeding with bowel movements approximately 2 weeks ago. The patient states she saw horse racing analyst (Dr. Choi) who told her it was likely hemorrhoids and gave her a prescription for suppositories. Patient states yesterday she began having diffuse abdominal pain is intermittent. The patient states she began having rectal bleeding after having the urge to urinate. The patient states she is not passing stool ball when she wipes her rectum there is blood. Patient denies rectal pain. Location: The gastrointestinal system Duration: 2 weeks Quality: Bright red blood Severity: Moderate Modifying factors: [see above] Context: [see above] Mode of transportation: [not driving] ED Past Medical Hx - Past Medical History Hx Hypertension: Yes Hx CVA: Yes Hx Diabetes: Yes Hx GERD: Yes Hx Renal Disease: Yes Hx Arthritis: Yes Hx Headaches / Migraines: Yes (MIGRAINES) Hx Seizures: Yes Hx Psychiatric Treatment: Yes Hx Asthma: Yes Additional medical history: lupus. high cholesterol. bipolar. depression. anxiety PANIC ATTACK. Hypothyroidism - Surgical History Past Surgical History?: No Hx Breast Surgery: Yes (right lumpectomy) Additional Surgical History: "rectal repair" after vaginal delivery. lump removed from right arm - Family History Family history: no significant - Social History Smoking Status: Never Smoker Substance Use Type: None (denies illicit drug use), Alcohol (occasional) - Medications Home Medications: Home Medications Medication Instructions Recorded Confirmed Last Taken Type Albuterol Sulfate [Ventolin HFA] 2 puff INHALATION PRN PRN 04/10/14 12/10/17 09:30 History Fluticasone/Salmeterol [Advair 1 inhalation INHALATION BID PRN 04/10/1408/13/14 10:30 History Diskus 250-50 mcg] Furosemide 2 tab PO DAILY 04/10/14 12/10/17 03/23/15 08:00 History Simvastatin 1 tab PO DAILY 04/10/14 12/10/17 03/23/15 08:00 History SUMAtriptan SUCCINATE [Imitrex] 100 mg PO PRN PRN 03/10/15 12/10/17 03/23/15 08: 00 History Ferrous Sulfate [Feosol 325 MG tab] 325 mg PO QDAY 08/10/16 12/10/17 Unknown History Riboflavin (Vitamin B2) 400 mg PO QDAY 08/10/16 12/10/17 Unknown History [Riboflavin] Topiramate [Topamax] 200 mg PO DAILY #14 tablet 08/12/16 12/10/17 Unknown Rx Acetaminophen [Tylenol Extra 1,000 mg PO QID PRN #60 tablet 11/18/17 12/10/17 Unknown Rx Strength] Cyclobenzaprine [Flexeril] 10 mg PO TID PRN #30 tablet 11/18/17 12/10/17 Unknown Rx Menthol/Camphor [[place] 1 applicatio TP BID PRN #1 tube 11/18/17 12/10/17 Unknown Rx Ointment] Amitriptyline [Elavil] 100 mg PO QHS 12/10/17 12/10/17 Unknown History Chlorzoxazone 500 mg PO DAILY 12/10/17 12/10/17 Unknown History Dexlansoprazole [Dexilant] 60 mg PO QDAY 12/10/17 12/10/17 Unknown History Doxepin HCl [Silenor] 3 mg PO QHS 12/10/17 12/10/17 Unknown History Duloxetine HCl [DULoxetine] 60 mg PO DAILY 12/10/17 12/10/17 Unknown History Hydroxychloroquine [Plaquenil] 200 mg PO QDAY 12/10/17 12/10/17 Unknown History Levothyroxine [Synthroid] 125 mcg PO DAILY@0600 12/10/17 12/10/17 Unknown History Losartan [Cozaar] 100 mg PO QDAY 12/10/17 12/10/17 Unknown History Lubiprostone (Nf) [Amitiza Cap 24 mcg PO DAILY 12/10/17 12/10/17 Unknown History (Nf)] Lurasidone HCl [Latuda] 120 mg PO QDAY 12/10/17 12/10/17 Unknown History Metaxalone [Skelaxin] 800 mg PO TID #30 tablet 12/10/17 Unknown Rx Pregabalin [Lyrica] 150 mg PO DAILY 12/10/17 12/10/17 Unknown History Promethazine HCl [Promethazine TAB] 25 mg PO Q6H PRN 12/10/17 12/10/17 Unknown History Tizanidine HCl [tiZANidine] 2 mg PO DAILY 12/10/17 12/10/17 Unknown History clonazePAM [Klonopin] 0.5 mg PO DAILY 12/10/17 12/10/17 Unknown History traMADol [Ultram] 50 mg PO BID 12/10/17 12/10/17 Unknown History Hydrocortisone [Anucort-HC SUPPOS] 25 mg RC BID #10 supp.rect 01/20/18 Unknown Rx ED Review of Systems ROS: Stated complaint: RECTAL BLEEDING Other details as noted in HPI Constitutional: malaise Gastrointestinal: abdominal pain, hematochezia Physical Exam - Physical Exam Vital Signs: Vital Signs 01/20/18 01/20/18 07:51 10:02 Temperature 98.7 F Pulse Rate 96 H 97 H Respiratory 20 21 Rate Blood Pressure 147/81 O2 Sat by Pulse 100 Oximetry Physical Exam: GENERAL: The patient is well-developed well-nourished female lying on stretcher not appearing to be in acute distress. [] HEENT: Normocephalic. Atraumatic. Extraocular motions are intact. Patient has moist mucous membranes. NECK: Supple. Trachea midline CHEST/LUNGS: Clear to auscultation. There is no respiratory distress noted. HEART/CARDIOVASCULAR: Regular. There is no tachycardia. There is no gallop rub or murmur. ABDOMEN: Abdomen is soft, with diffuse tenderness to palpation. Patient has normal bowel sounds. There is no abdominal distention. SKIN: There is no rash. There is no edema. There is no diaphoresis. NEURO: The patient is awake, alert, and oriented. The patient is cooperative. The patient has normal speech MUSCULOSKELETAL:There is no evidence of acute injury. RECTAL: No external hemorrhoids seen. Skin tag seen. No internal hemorrhoids palpated. Paucity of stool but faint guaiac positive ED Course Vital Signs 01/20/18 01/20/18 07:51 10:02 Temperature 98.7 F Pulse Rate 96 H 97 H Respiratory 20 21 Rate Blood Pressure 147/81 O2 Sat by Pulse 100 Oximetry - Consultations Consultation #1: 01/20/18 13:00 Dr. Choi (GI) paged 01/20/18 13:[address] Palomo- no recommendations ED Medical Decision Making - Lab Data Result diagrams: 01/20/18 10:56 01/20/18 10:56 Laboratory Tests 01/20/18 01/20/18 01/20/18 08:32 10:56 10:56 WBC 9.7 RBC 3.77 Hgb 10.7 Hct 32.3 MCV 86 MCH 28 MCHC 33 RDW 14.6 Plt Count 376 Lymph # Linen Room Supervisor Add Manual Diff Complete Total Counted 100 Seg Neuts % (Manual) 41.0 Band Neutrophils % 0 Lymphocytes % (Manual) 49.0 H Reactive Lymphs % (Man) 0 Monocytes % (Manual) 5.0 Eosinophils % (Manual) 5.0 H Basophils % (Manual) 0 Metamyelocytes % 0 Myelocytes % 0 Promyelocytes % 0 Blast Cells % 0 Nucleated RBC % Not Reportable Seg Neutrophils # Man 4.0 Band Neutrophils # 0.0 Lymphocytes # (Manual) 4.8 Abs React Lymphs (Man) 0.0 Monocytes # (Manual) 0.5 Eosinophils # (Manual) 0.5 H Basophils # (Manual) 0.0 Metamyelocytes # 0.0 Myelocytes # 0.0 Promyelocytes # 0.0 Blast Cells # 0.0 WBC Morphology Not Reportable Hypersegmented Neuts Not Reportable Hyposegmented Neuts Not Reportable Hypogranular Neuts Not Reportable Smudge Cells Not Reportable Toxic Granulation Not Reportable Toxic Vacuolation Not Reportable Dohle Bodies Not Reportable Pelger-Huet Anomaly Not Reportable Nay Rods Not Reportable Platelet Estimate Consistent w auto Clumped Platelets Not Reportable Plt Clumps, EDTA Not Reportable Large Platelets Not Reportable Giant Platelets Not Reportable Platelet Satelliting Not Reportable Plt Morphology Comment Not Reportable RBC Morphology Not Reportable Dimorphic RBCs Not Reportable Polychromasia Not Reportable Hypochromasia 1+ Poikilocytosis Not Reportable Anisocytosis Not Reportable Microcytosis Not Reportable Macrocytosis Not Reportable Spherocytes Not Reportable Pappenheimer Bodies Not Reportable Sickle Cells Not Reportable Target Cells Not Reportable Tear Drop Cells Not Reportable Ovalocytes Not Reportable Helmet Cells Not Reportable [place] Bodies Not Reportable [place] Rings Not Reportable [place] Cells Not Reportable Bite Cells Not Reportable Crenated Cell Not Reportable Elliptocytes Not Reportable Acanthocytes (Spur) Not Reportable Rouleaux Not Reportable Hemoglobin C Crystals Not Reportable Schistocytes Not Reportable Malaria parasites Not Reportable Yash Bodies Not Reportable Hem Pathologist Commnt No PT 12.9 INR 0.93 APTT 33.2 Sodium Potassium Chloride Carbon Dioxide Anion Gap BUN Creatinine Estimated GFR BUN/Creatinine Ratio Glucose Calcium Total Bilirubin AST ALT Alkaline Phosphatase Total Protein Albumin Albumin/Globulin Ratio Lipase Urine Color Yellow Urine Turbidity Clear Urine pH 5.0 Ur Specific [place] 1.005 Urine Protein <15 mg/dl Urine Glucose (UA) Neg Urine Ketones Neg Urine Blood Sm Urine Nitrite Neg Urine Bilirubin Neg Urine Urobilinogen < 2.0 Ur Leukocyte Esterase Mod Urine WBC (Auto) 3.0 Urine RBC (Auto) 5.0 U Epithel Cells (Auto) 9.0 Urine Bacteria (Auto) 1+ Urine Mucus Few Urine HCG, Qual Negative Blood Type Antibody Screen 01/20/18 01/20/18 10:56 10:56 WBC RBC Hgb Hct MCV MCH MCHC RDW Plt Count Lymph # Add Manual Diff Total Counted Seg Neuts % (Manual) Band Neutrophils % Lymphocytes % (Manual) Reactive Lymphs % (Man) Monocytes % (Manual) Eosinophils % (Manual) Basophils % (Manual) Metamyelocytes % Myelocytes % Promyelocytes % Blast Cells % Nucleated RBC % Seg Neutrophils # Man Band Neutrophils # Lymphocytes # (Manual) Abs React Lymphs (Man) Monocytes # (Manual) Eosinophils # (Manual) Basophils # (Manual) Metamyelocytes # Myelocytes # Promyelocytes # Blast Cells # WBC Morphology Hypersegmented Neuts Hyposegmented Neuts Hypogranular Neuts Smudge Cells Toxic Granulation Toxic Vacuolation Dohle Bodies Pelger-Huet Anomaly Nay Rods Platelet Estimate Clumped Platelets Plt Clumps, EDTA Large Platelets Giant Platelets Platelet Satelliting Plt Morphology Comment RBC Morphology Dimorphic RBCs Polychromasia Hypochromasia Poikilocytosis Anisocytosis Microcytosis Macrocytosis Spherocytes Pappenheimer Bodies Sickle Cells Target Cells Tear Drop Cells Ovalocytes Helmet Cells [place] Bodies [place] Rings Butler Cells Bite Cells Crenated Cell Elliptocytes Acanthocytes (Spur) Rouleaux Hemoglobin C Crystals Schistocytes Malaria parasites Yash Bodies Hem Pathologist Commnt PT INR APTT Sodium 140 Potassium 3.8 Chloride 102.7 Carbon Dioxide 24 Anion Gap 17 BUN 9 Creatinine 1.0 Estimated GFR > 60 BUN/Creatinine Ratio 9 Glucose 125 H Calcium 8.9 Total Bilirubin 0.20 AST 26 ALT 23 Alkaline Phosphatase 86 Total Protein 7.8 Albumin 4.1 Albumin/Globulin Ratio 1.1 Lipase 12 L Urine Color Urine Turbidity Urine pH Ur Specific [place]elm Urine Protein Urine Glucose (UA) Urine Ketones Urine Blood Urine Nitrite Urine Bilirubin Urine Urobilinogen Ur Leukocyte Esterase Urine WBC (Auto) Urine RBC (Auto) U Epithel Cells (Auto) Urine Bacteria (Auto) Urine Mucus Urine HCG, Qual Blood Type O NEGATIVE Antibody Screen Negative - EKG Data -: EKG Interpreted by Me EKG shows normal: sinus rhythm Rate: normal - EKG Data When compared to previous EKG there are: previous EKG unavailable Interpretation: other (no ischemic changes seen) - Radiology Data Radiology results: report reviewed (CT abdomen and pelvis), image reviewed (CT abdomen and pelvis) [facility] [address] [id number] Cat Scan Report Signed Patient: BERT MISTRY MR#: [id number] : 1975 Acct:[id number] Age/Sex: 42 / F ADM Date: 01/20/18 Loc: ED Attending Dr: Ordering Physician: MING VALDERRAMA MD Date of Service: 01/20/18 Procedure(s): CT abdomen pelvis w con Accession Number(s): [id number] cc: MING VALDERRAMA MD CT scan of abdomen and pelvis with IV contrast: History: Diffuse abdominal pain, rectal bleeding. Findings: Normal lung bases. No pleural pericardial effusion. Normal liver spleen pancreas and gallbladder. Normal adrenals kidney parenchyma and bladder. No free intraperitoneal fluid or air. No evidence of adenopathy. Normal aorta. Gaseous colon with stool in colon. Normal appendix. No evidence of diverticulitis. Impression: Stool throughout colon. No bowel distention Transcribed By: PTP Dictated By: DENNISE FRIEDMAN MD Electronically Authenticated By: DENNISE FRIEDMAN MD Signed Date/Time: 01/20/18 1235 DD/ 1233 TD/TT: 01/20/18 1235 - Differential Diagnosis GI bleeding Critical care attestation.: If time is entered above; I have spent that time in minutes in the direct care of this critically ill patient, excluding procedure time. ED Disposition Clinical Impression: Rectal bleeding Disposition: DC-01 TO HOME OR SELFCARE Is pt being admited?: No Does the pt Need Aspirin: No Condition: Stable Instructions: Rectal Bleeding (ED) Additional Instructions: Return to the emergency department immediately should you develop worsening symptoms, fever, inability to tolerate food or liquid or any other concerns. Prescriptions: Hydrocortisone [Anucort-HC SUPPOS] 25 mg RC BID #10 supp.rect Referrals: PRIMARY CARE, [Primary Care Provider] - 3-5 Days YEE CHOI MD [Staff Physician] - [facility] (Follow-up with your horse racing analyst for further evaluation) Forms: Accompanied Note Time of Disposition: 13:18
[2018-01-20 11:32] LABS: Hematocrit 32.3 % (30.3-42.9); Hemoglobin 10.7 gm/dl (10.1-14.3); Mean Corpuscular HGB Conc 33 % (30-34); Mean Corpuscular Hemoglobin 28 pg (28-32); Mean Corpuscular Volume 86 fl (79-97); Platelet Count 376 K/mm3 (140-440); Red Blood Count 3.77 M/mm3 (3.65-5.03); Red Cell Distribution Width 14.6 % (13.2-15.2)
[2018-01-20 11:43] LABS: INR 0.93 (0.87-1.13)
[2018-01-20 11:44] LABS: Partial Thromboplastin Time 33.2 Sec. (24.2-36.6)
[2018-01-20 11:50] LABS: Alanine Aminotransferase 23 units/L (7-56); Albumin 4.1 g/dL (3.9-5); BUN/Creatinine Ratio 9; Blood Urea Nitrogen 9 mg/dL (7-17); Calcium 8.9 mg/dL (8.4-10.2); Hemolysis Index 4; Lipase 12 units/L (13-60)
[2018-01-20 12:47] LABS: Basophils % (Manual) 0 % (0.0-1.8); Hypochromasia 1+; Platelet Estimate Consistent w Auto; Total Cells Counted 100
--- NOTE | 2018-01-20 12:56 | Cat Scan Report ---
CT scan of abdomen and pelvis with IV contrast: History: Diffuse abdominal pain, rectal bleeding. Findings: Normal lung bases. No pleural pericardial effusion. Normal liver spleen pancreas and gallbladder. Normal adrenals kidney parenchyma and bladder. No free intraperitoneal fluid or air. No evidence of adenopathy. Normal aorta. Gaseous colon with stool in colon. Normal appendix. No evidence of diverticulitis. Impression: Stool throughout colon. No bowel distention
[2018-01-20 13:17] VITALS: BP 132/82
== END 2018-01-20 13:36 | disposition home or self-care (01) ==
LOC: ED 07:39
DX: K62.5 Hemorrhage of anus and rectum (principal); K21.9 Gastro-esophageal reflux disease without esophagitis; I12.9 Hypertensive chronic kidney disease with stage 1 through stage 4 chronic kidney disease, or unspecified chronic kidney disease; E11.22 Type 2 diabetes mellitus with diabetic chronic kidney disease; N18.9 Chronic kidney disease, unspecified; J45.909 Unspecified asthma, uncomplicated; M32.9 Systemic lupus erythematosus, unspecified; F31.9 Bipolar disorder, unspecified; F41.0 Panic disorder [episodic paroxysmal anxiety]; E78.00 Pure hypercholesterolemia, unspecified; E03.9 Hypothyroidism, unspecified
CPT/HCPCS: 36415; 74177; 80053; 81001; 81025; 83690; 85007; 85025; 85610; 85730; 86850; 86900; 86901; 93005; 93010; 99284; Q9967

== ENCOUNTER 2018-02-15 17:13 | Emergency (ER) | payer MEDICARE ==
[2018-02-15 18:32] LABS: Hematocrit 35.2 % (30.3-42.9); Hemoglobin 11.4 gm/dl (10.1-14.3); Mean Corpuscular HGB Conc 32 % (30-34); Mean Corpuscular Hemoglobin 28 pg (28-32); Mean Corpuscular Volume 87 fl (79-97); Platelet Count 434 K/mm3 (140-440); Red Blood Count 4.06 M/mm3 (3.65-5.03); Red Cell Distribution Width 14.7 % (13.2-15.2)
--- NOTE | 2018-02-15 18:40 | XRay Report ---
FINAL REPORT EXAM: XR ABDOMEN 1V AP HISTORY: abdominal pain. No BM x2 weeks. TECHNIQUE: Supine views of the abdomen PRIORS: L-spine x-rays 11/17/2017 FINDINGS: The bowel gas pattern is nonspecific. No free air is identified. Moderate stool is present throughout the descending colon. Soft tissues have no evidence for mass shadows or calcifications. The bony structures are intact. IMPRESSION: Nonspecific, nonobstructive bowel gas pattern with no acute process noted.
[2018-02-15 18:46] LABS: Alanine Aminotransferase 23 units/L (7-56); Albumin 4.7 g/dL (3.9-5); BUN/Creatinine Ratio 4; Blood Urea Nitrogen 5 mg/dL (7-17); Calcium 9.4 mg/dL (8.4-10.2); Hemolysis Index 2
[2018-02-15 19:41] LABS: Basophils % (Manual) 0 % (0.0-1.8); Eosinophils % (Manual) 0 % (0.0-4.3); Total Cells Counted 100
[2018-02-15 19:42] LABS: Anisocytosis Few; Poikilocytosis 1+
[2018-02-15] MEDS ORDERED: BENTYL PO ONE (23:04)
[2018-02-15] MEDS ORDERED: ZOFRAN ODT PO ONE (23:04)
[2018-02-15] MEDS ORDERED: CARAFATE PO ONE (23:04)
--- NOTE | 2018-02-15 23:06 | Emergency Department Report ---
ED General Adult HPI - General Chief complaint: Abdominal Pain Stated complaint: ABD PAIN FROM NO BM IN 2 WEEKS Time Seen by Provider: 02/15/18 22:52 Source: patient, RN notes reviewed, old records reviewed Mode of arrival: Ambulatory Limitations: No Limitations - History of Present Illness Initial comments: This is a 42-year-old female who is previously unknown to this provider. Past medical history of constipation, obesity, asthma, diabetes, hypertension. Patient seen in this hospital on January 20 for evaluation of abdominal pain and possible GI bleeding, had a CT scan of the abdomen and pelvis with IV contrast which was negative for acute pathology, and demonstrated constipation. Patient was referred to outpatient gastroenterology, Dr. Choi. Patient has been prepped for colonoscopy 2. Patient verbally reported that after each attempt, procedure had to be aborted secondary to insufficient preparation. She complains of abdominal cramping, decreased stool for 2 weeks. She reports that she feels " icky" and nauseous. Her abdominal cramping is diffuse, does not radiate anywhere, increases with palpation and decreases with rest. She endorses no urinary symptoms. Her symptoms have been going on for a few weeks. Patient reports that she's not had a complete and full colonoscopy. -: Gradual Location: abdomen Quality: aching Consistency: intermittent Improves with: rest Worsens with: movement Associated Symptoms: nausea/vomiting. denies: confusion, chest pain, cough, diaphoresis, fever/chills, headaches, loss of appetite, malaise, rash, seizure, shortness of breath, syncope, weakness - Related Data Home Medications Medication Instructions Recorded Confirmed Last Taken Albuterol Sulfate [Ventolin HFA] 2 puff INHALATION PRN PRN 04/10/14 12/10/17 09:30 Fluticasone/Salmeterol [Advair 1 inhalation INHALATION BID PRN 04/10/1408/13/14 10:30 Diskus 250-50 mcg] Furosemide 2 tab PO DAILY 04/10/14 12/10/17 03/23/15 08:00 Simvastatin 1 tab PO DAILY 04/10/14 12/10/17 03/23/15 08:00 SUMAtriptan SUCCINATE [Imitrex] 100 mg PO PRN PRN 03/10/15 12/10/17 03/23/15 08: 00 Ferrous Sulfate [Feosol 325 MG tab] 325 mg PO QDAY 08/10/16 12/10/17 Unknown Riboflavin (Vitamin B2) 400 mg PO QDAY 08/10/16 12/10/17 Unknown [Riboflavin] Amitriptyline [Elavil] 100 mg PO QHS 12/10/17 12/10/17 Unknown Chlorzoxazone 500 mg PO DAILY 12/10/17 12/10/17 Unknown Dexlansoprazole [Dexilant] 60 mg PO QDAY 12/10/17 12/10/17 Unknown Doxepin HCl [Silenor] 3 mg PO QHS 12/10/17 12/10/17 Unknown Duloxetine HCl [DULoxetine] 60 mg PO DAILY 12/10/17 12/10/17 Unknown Hydroxychloroquine [Plaquenil] 200 mg PO QDAY 12/10/17 12/10/17 Unknown Levothyroxine [Synthroid] 125 mcg PO DAILY@0600 12/10/17 12/10/17 Unknown Losartan [Cozaar] 100 mg PO QDAY 12/10/17 12/10/17 Unknown Lubiprostone (Nf) [Amitiza Cap 24 mcg PO DAILY 12/10/17 12/10/17 Unknown (Nf)] Lurasidone HCl [Latuda] 120 mg PO QDAY 12/10/17 12/10/17 Unknown Pregabalin [Lyrica] 150 mg PO DAILY 12/10/17 12/10/17 Unknown Promethazine HCl [Promethazine TAB] 25 mg PO Q6H PRN 12/10/17 12/10/17 Unknown Tizanidine HCl [tiZANidine] 2 mg PO DAILY 12/10/17 12/10/17 Unknown clonazePAM [Klonopin] 0.5 mg PO DAILY 12/10/17 12/10/17 Unknown traMADol [Ultram] 50 mg PO BID 12/10/17 12/10/17 Unknown Previous Rx's Medication Instructions Recorded Last Taken Type Topiramate [Topamax] 200 mg PO DAILY #14 tablet 08/12/16 Unknown Rx Acetaminophen [Tylenol Extra 1,000 mg PO QID PRN #60 tablet 11/18/17 Unknown Rx Strength] Cyclobenzaprine [Flexeril] 10 mg PO TID PRN #30 tablet 11/18/17 Unknown Rx Menthol/Camphor [[place] 1 applicatio TP BID PRN #1 tube 11/18/17 Unknown Rx Ointment] Metaxalone [Skelaxin] 800 mg PO TID #30 tablet 12/10/17 Unknown Rx Hydrocortisone [Anucort-HC SUPPOS] 25 mg RC BID #10 supp.rect 01/20/18 Unknown Rx Ondansetron [Zofran Odt] 4 mg PO Q8HR PRN #20 tab.rapdis 02/16/18 Unknown Rx Polyethylene Glycol 3350 [Miralax 17 gm PO QDAY #30 packet 02/16/18 Unknown Rx 3350] Allergies Allergy/AdvReac Type Severity Reaction Status Date / Time aspirin Allergy Hives Verified 01/20/18 07:51 butorphanol tartrate Allergy Seizure Verified 01/20/18 07:51 [From Stadol] latex Allergy Hives Verified 01/20/18 07:51 NSAIDS (Non-Steroidal Allergy Hives Verified 01/20/18 07:51 Anti-Inflamma ED Review of Systems ROS: Stated complaint: ABD PAIN FROM NO BM IN 2 WEEKS Other details as noted in HPI Comment: All other systems reviewed and negative Gastrointestinal: abdominal pain, constipation. denies: vomiting Genitourinary: denies: dysuria ED Past Medical Hx - Past Medical History Hx Hypertension: Yes Hx CVA: Yes Hx Diabetes: Yes Hx GERD: Yes Hx Renal Disease: Yes Hx Arthritis: Yes Hx Headaches / Migraines: Yes (MIGRAINES) Hx Seizures: Yes Hx Psychiatric Treatment: Yes Hx Asthma: Yes Additional medical history: lupus. high cholesterol. bipolar. depression. anxiety PANIC ATTACK. Hypothyroidism - Surgical History Hx Breast Surgery: Yes (right lumpectomy) Additional Surgical History: "rectal repair" after vaginal delivery. lump removed from right arm - Social History Smoking Status: Never Smoker - Medications Home Medications: Home Medications Medication Instructions Recorded Confirmed Last Taken Type Albuterol Sulfate [Ventolin HFA] 2 puff INHALATION PRN PRN 04/10/14 12/10/17 09:30 History Fluticasone/Salmeterol [Advair 1 inhalation INHALATION BID PRN 04/10/1408/13/14 10:30 History Diskus 250-50 mcg] Furosemide 2 tab PO DAILY 04/10/14 12/10/1715 08:00 History Simvastatin 1 tab PO DAILY 04/10/14 12/10/17 03/23/15 08:00 History SUMAtriptan SUCCINATE [Imitrex] 100 mg PO PRN PRN 03/10/15 12/10/17 03/23/15 08: 00 History Ferrous Sulfate [Feosol 325 MG tab] 325 mg PO QDAY 08/10/16 12/10/17 Unknown History Riboflavin (Vitamin B2) 400 mg PO QDAY 08/10/16 12/10/17 Unknown History [Riboflavin] Topiramate [Topamax] 200 mg PO DAILY #14 tablet 08/12/16 12/10/17 Unknown Rx Acetaminophen [Tylenol Extra 1,000 mg PO QID PRN #60 tablet 11/18/17 12/10/17 Unknown Rx Strength] Cyclobenzaprine [Flexeril] 10 mg PO TID PRN #30 tablet 11/18/17 12/10/17 Unknown Rx Menthol/Camphor [[place] 1 applicatio TP BID PRN #1 tube 11/18/17 12/10/17 Unknown Rx Ointment] Amitriptyline [Elavil] 100 mg PO QHS 12/10/17 12/10/17 Unknown History Chlorzoxazone 500 mg PO DAILY 12/10/17 12/10/17 Unknown History Dexlansoprazole [Dexilant] 60 mg PO QDAY 12/10/17 12/10/17 Unknown History Doxepin HCl [Silenor] 3 mg PO QHS 12/10/17 12/10/17 Unknown History Duloxetine HCl [DULoxetine] 60 mg PO DAILY 12/10/17 12/10/17 Unknown History Hydroxychloroquine [Plaquenil] 200 mg PO QDAY 12/10/17 12/10/17 Unknown History Levothyroxine [Synthroid] 125 mcg PO DAILY@0600 12/10/17 12/10/17 Unknown History Losartan [Cozaar] 100 mg PO QDAY 12/10/17 12/10/17 Unknown History Lubiprostone (Nf) [Amitiza Cap 24 mcg PO DAILY 12/10/17 12/10/17 Unknown History (Nf)] Lurasidone HCl [Latuda] 120 mg PO QDAY 12/10/17 12/10/17 Unknown History Metaxalone [Skelaxin] 800 mg PO TID #30 tablet 12/10/17 Unknown Rx Pregabalin [Lyrica] 150 mg PO DAILY 12/10/17 12/10/17 Unknown History Promethazine HCl [Promethazine TAB] 25 mg PO Q6H PRN 12/10/17 12/10/17 Unknown History Tizanidine HCl [tiZANidine] 2 mg PO DAILY 12/10/17 12/10/17 Unknown History clonazePAM [Klonopin] 0.5 mg PO DAILY 12/10/17 12/10/17 Unknown History traMADol [Ultram] 50 mg PO BID 12/10/17 12/10/17 Unknown History Hydrocortisone [Anucort-HC SUPPOS] 25 mg RC BID #10 supp.rect 01/20/18 Unknown Rx Ondansetron [Zofran Odt] 4 mg PO Q8HR PRN #20 tab.rapdis 02/16/18 Unknown Rx Polyethylene Glycol 3350 [Miralax 17 gm PO QDAY #30 packet 02/16/18 Unknown Rx 3350] ED Physical Exam - General Limitations: No Limitations General appearance: alert, in no apparent distress, obese - Head Head exam: Present: atraumatic, normocephalic - Eye Eye exam: Present: normal appearance, EOMI. Absent: nystagmus - ENT ENT exam: Present: normal exam, normal orophraynx, mucous membranes moist, normal external ear exam - Neck Neck exam: Present: normal inspection, full ROM. Absent: tenderness, meningismus - Respiratory Respiratory exam: Present: normal lung sounds bilaterally. Absent: respiratory distress - Cardiovascular Cardiovascular Exam: Present: regular rate, normal rhythm, normal heart sounds. Absent: bradycardia, tachycardia, irregular rhythm, systolic murmur, diastolic murmur, rubs, gallop - GI/Abdominal GI/Abdominal exam: Present: soft, normal bowel sounds. Absent: distended, tenderness, guarding, rebound, rigid, pulsatile mass - Extremities Exam Extremities exam: Present: normal inspection, full ROM. Absent: pedal edema, calf tenderness - Back Exam Back exam: Present: normal inspection, full ROM. Absent: tenderness, CVA tenderness (R), paraspinal tenderness, vertebral tenderness - Neurological Exam Neurological exam: Present: alert, oriented X3, CN II-XII intact, normal gait, other (Extraocular movements intact. Tongue midline. No facial droop. Facial sensation intact to light touch in the V1, V2, V3 distribution bilaterally. 5 and 5 strength in 4 extremities.. Sensation is intact to light touch in 4 extremities.). Absent: motor sensory deficit - Psychiatric Psychiatric exam: Present: normal affect, normal mood - Skin Skin exam: Present: warm, dry, intact, normal color. Absent: rash ED Course Vital Signs 02/15/18 02/15/18 17:35 22:21 Temperature 98.3 F 97.9 F Pulse Rate 89 Respiratory 16 Rate Blood Pressure 164/106 O2 Sat by Pulse 98 Oximetry ED Medical Decision Making - Lab Data Result diagrams: 02/15/18 18:06 02/15/18 18:06 Vital Signs 02/15/18 02/15/18 17:35 22:21 Temperature 98.3 F 97.9 F Pulse Rate 89 Respiratory 16 Rate Blood Pressure 164/106 O2 Sat by Pulse 98 Oximetry Lab Results 02/15/18 02/15/18 02/15/18 Range/Units 18:06 18:06 22:21 WBC 10.3 (4.5-11.0) K/mm3 RBC 4.06 (3.65-5.03) M/mm3 Hgb 11.4 (10.1-14.3) gm/dl Hct 35.2 (30.3-42.9) % MCV 87 (79-97) fl MCH 28 (28-32) pg MCHC 32 (30-34) % RDW 14.7 (13.2-15.2) % Plt Count 434 (140-440) K/mm3 Add Manual Diff Complete Total Counted 100 Seg Neuts % (Manual) 48.0 (40.0-70.0) % Band Neutrophils % 0 % Lymphocytes % (Manual) 46.0 H (13.4-35.0) % Reactive Lymphs % (Man) 0 % Monocytes % (Manual) 6.0 (0.0-7.3) % Eosinophils % (Manual) 0 (0.0-4.3) % Basophils % (Manual) 0 (0.0-1.8) % Metamyelocytes % 0 % Myelocytes % 0 % Promyelocytes % 0 % Blast Cells % 0 % Nucleated RBC % Not Reportable Seg Neutrophils # Man 4.9 (1.8-7.7) K/mm3 Band Neutrophils # 0.0 K/mm3 Lymphocytes # (Manual) 4.7 (1.2-5.4) K/mm3 Abs React Lymphs (Man) 0.0 K/mm3 Monocytes # (Manual) 0.6 (0.0-0.8) K/mm3 Eosinophils # (Manual) 0.0 (0.0-0.4) K/mm3 Basophils # (Manual) 0.0 (0.0-0.1) K/mm3 Metamyelocytes # 0.0 K/mm3 Myelocytes # 0.0 K/mm3 Promyelocytes # 0.0 K/mm3 Blast Cells # 0.0 K/mm3 WBC Morphology Not Reportable Hypersegmented Neuts Not Reportable Hyposegmented Neuts Not Reportable Hypogranular Neuts Not Reportable Smudge Cells Not Reportable Toxic Granulation Not Reportable Toxic Vacuolation Not Reportable Dohle Bodies Not Reportable Pelger-Huet Anomaly Not Reportable [place]ay Rods Not Reportable Platelet Estimate Appears normal Clumped Platelets Not Reportable Plt Clumps, EDTA Not Reportable Large Platelets Not Reportable Giant Platelets Not Reportable Platelet Satelliting Not Reportable Plt Morphology Comment Not Reportable RBC Morphology Not Reportable Dimorphic RBCs Not Reportable Polychromasia Not Reportable Hypochromasia Not Reportable Poikilocytosis 1+ Anisocytosis Few Microcytosis Not Reportable Macrocytosis Not Reportable Spherocytes Not Reportable Pappenheimer Bodies Not Reportable Sickle Cells Not Reportable Target Cells Not Reportable Tear Drop Cells Not Reportable Ovalocytes Not Reportable Helmet Cells Not Reportable Villatoro-Dardanelle Bodies Not Reportable [place] Rings Not Reportable Renea Cells Not Reportable Bite Cells Not Reportable Crenated Cell Not Reportable Elliptocytes Not Reportable Acanthocytes (Spur) Not Reportable Rouleaux Not Reportable Hemoglobin C Crystals Not Reportable Schistocytes Not Reportable Malaria parasites Not Reportable Yash Bodies Not Reportable Hem Pathologist Commnt No Sodium 140 (137-145) mmol/L Potassium 3.7 (3.6-5.0) mmol/L Chloride 99.5 (98-107) mmol/L Carbon Dioxide 25 (22-30) mmol/L Anion Gap 19 mmol/L BUN 5 L (7-17) mg/dL Creatinine 1.2 (0.7-1.2) mg/dL Estimated GFR > 60 ml/min BUN/Creatinine Ratio 4 % Glucose 90 (65-100) mg/dL Calcium 9.4 (8.4-10.2) mg/dL Total Bilirubin 0.30 (0.1-1.2) mg/dL AST 26 (5-40) units/L ALT 23 (7-56) units/L Alkaline Phosphatase 70 (35-129) units/L Total Protein 8.3 H (6.3-8.2) g/dL Albumin 4.7 (3.9-5) g/dL Albumin/Globulin Ratio 1.3 % Urine Color Yellow (Yellow) Urine Turbidity Clear (Clear) Urine pH 6.0 (5.0-7.0) Ur Specific [place] 1.014 (1.003-1.030) Urine Protein <15 mg/dl (Negative) mg/dL Urine Glucose (UA) Neg (Negative) mg/dL Urine Ketones Neg (Negative) mg/dL Urine Blood Neg (Negative) Urine Nitrite Neg (Negative) Urine Bilirubin Neg (Negative) Urine Urobilinogen 2.0 (<2.0) mg/dL Ur Leukocyte Esterase Neg (Negative) Urine WBC (Auto) 1.0 (0.0-6.0) /HPF Urine RBC (Auto) 1.0 (0.0-6.0) /HPF U Epithel Cells (Auto) < 1.0 (0-13.0) /HPF Urine Bacteria (Auto) 1+ (Negative) /HPF Urine Mucus 1+ /HPF Urine HCG, Qual (Negative) 02/15/18 Range/Units 23:02 WBC (4.5-11.0) K/mm3 RBC (3.65-5.03) M/mm3 Hgb (10.1-14.3) gm/dl Hct (30.3-42.9) % MCV (79-97) fl MCH (28-32) pg MCHC (30-34) % RDW (13.2-15.2) % Plt Count (140-440) K/mm3 Add Manual Diff Total Counted Seg Neuts % (Manual) (40.0-70.0) % Band Neutrophils % % Lymphocytes % (Manual) (13.4-35.0) % Reactive Lymphs % (Man) % Monocytes % (Manual) (0.0-7.3) % Eosinophils % (Manual) (0.0-4.3) % Basophils % (Manual) (0.0-1.8) % Metamyelocytes % % Myelocytes % % Promyelocytes % % Blast Cells % % Nucleated RBC % Seg Neutrophils # Man (1.8-7.7) K/mm3 Band Neutrophils # K/mm3 Lymphocytes # (Manual) (1.2-5.4) K/mm3 Abs React Lymphs (Man) K/mm3 Monocytes # (Manual) (0.0-0.8) K/mm3 Eosinophils # (Manual) (0.0-0.4) K/mm3 Basophils # (Manual) (0.0-0.1) K/mm3 Metamyelocytes # K/mm3 Myelocytes # K/mm3 Promyelocytes # K/mm3 Blast Cells # K/mm3 WBC Morphology Hypersegmented Neuts Hyposegmented Neuts Hypogranular Neuts Smudge Cells Toxic Granulation Toxic Vacuolation Dohle Bodies Pelger-Huet Anomaly Nay Rods Platelet Estimate Clumped Platelets Plt Clumps, EDTA Large Platelets Giant Platelets Platelet Satelliting Plt Morphology Comment RBC Morphology Dimorphic RBCs Polychromasia Hypochromasia Poikilocytosis Anisocytosis Microcytosis Macrocytosis Spherocytes Pappenheimer Bodies Sickle Cells Target Cells Tear Drop Cells Ovalocytes Helmet Cells Villatoro-Dardanelle Bodies [place] Rings Renea Cells Bite Cells Crenated Cell Elliptocytes Acanthocytes (Spur) Rouleaux Hemoglobin C Crystals Schistocytes Malaria parasites Yash Bodies Hem Pathologist Commnt Sodium (137-145) mmol/L Potassium (3.6-5.0) mmol/L Chloride (98-107) mmol/L Carbon Dioxide (22-30) mmol/L Anion Gap mmol/L BUN (7-17) mg/dL Creatinine (0.7-1.2) mg/dL Estimated GFR ml/min BUN/Creatinine Ratio % Glucose (65-100) mg/dL Calcium (8.4-10.2) mg/dL Total Bilirubin (0.1-1.2) mg/dL AST (5-40) units/L ALT (7-56) units/L Alkaline Phosphatase (35-129) units/L Total Protein (6.3-8.2) g/dL Albumin (3.9-5) g/dL Albumin/Globulin Ratio % Urine Color (Yellow) Urine Turbidity (Clear) Urine pH (5.0-7.0) Ur Specific [place] (1.003-1.030) Urine Protein (Negative) mg/dL Urine Glucose (UA) (Negative) mg/dL Urine Ketones (Negative) mg/dL Urine Blood (Negative) Urine Nitrite (Negative) Urine Bilirubin (Negative) Urine Urobilinogen (<2.0) mg/dL Ur Leukocyte Esterase (Negative) Urine WBC (Auto) (0.0-6.0) /HPF Urine RBC (Auto) (0.0-6.0) /HPF U Epithel Cells (Auto) (0-13.0) /HPF Urine Bacteria (Auto) (Negative) /HPF Urine Mucus /HPF Urine HCG, Qual Negative (Negative) - Radiology Data Radiology results: report reviewed X-ray of the abdomen/pelvis: Negative for acute disease CT scan report from January 20 is also reviewed and appreciated - Medical Decision Making Differential diagnosis, including but not limited to: Constipation, irritable bowel syndrome Assessment and plan: 42-year-old female with 3 weeks of constipation. She had a CAT scan here less than one month ago which showed the same thing. She is afebrile with reassuring vital signs with a benign physical examination. She has not had a complete colonoscopy. Patient is educated as to diet and lifestyle modifications that she may pursue to improve her constipation. The patient declined a soap suds enema. 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 Given the aforementioned, duration of symptoms, benign physical examination, recent CT scan of the abdomen and pelvis within the past 4 weeks and young age, it is my pain that the patient does not require repeat advanced imaging at this time. Critical care attestation.: If time is entered above; I have spent that time in minutes in the direct care of this critically ill patient, excluding procedure time. ED Disposition Clinical Impression: Constipation Qualifiers: Constipation type: other constipation type Qualified Code(s): K59.09 - Other constipation Disposition: DC-01 TO HOME OR SELFCARE Is pt being admited?: No Does the pt Need Aspirin: No Condition: Good Instructions: Constipation (ED), High Fiber Diet (ED) Additional Instructions: Increased work consumption 6-8 cups of water per day. Purchase Metamucil as a supplement and taking [id number]. Increased consumption of fruits, fibers , vegetables. Initiate consumption of prune juice. Symptoms likely coming from constipation. This typically takes weeks to improve and get better. Follow-up with your airplane fueler within the next week. Return to the ER right away with new pain, worsened pain, migration of pain, fevers, chills, lethargy, irritability, projectile vomiting, change in mental status, confusion , inability to tolerate liquid feeds. Referrals: KYLIE ALEXIS MD [Primary Care Provider] - 3-5 Days YEE CHOI MD [Staff Physician] - 3-5 Days
[2018-02-15 23:12] LABS: HCG Qualitative,Urine Negative (Negative)
[2018-02-15 23:20] LABS: Bacteria,Urine 1+ /HPF (Negative); Bilirubin,Urine NEG (Negative); Blood,Urine NEG (Negative); Color,Urine Yellow (Yellow); Mucus,Urine 1+ /HPF; Protein,Urine <15 mg/dL mg/dL (Negative)
[2018-02-16 00:54] VITALS: BP 128/74
== END 2018-02-16 00:54 | disposition home or self-care (01) ==
LOC: ED 17:13
DX: K59.09 Other constipation (principal); I10 Essential (primary) hypertension; E11.9 Type 2 diabetes mellitus without complications; M19.90 Unspecified osteoarthritis, unspecified site; G43.909 Migraine, unspecified, not intractable, without status migrainosus; J45.909 Unspecified asthma, uncomplicated; F31.9 Bipolar disorder, unspecified; E78.00 Pure hypercholesterolemia, unspecified; E03.9 Hypothyroidism, unspecified; Z86.73 Personal history of transient ischemic attack (TIA), and cerebral infarction without residual deficits; Z90.89 Acquired absence of other organs; Z88.8 Allergy status to other drugs, medicaments and biological substances; Z91.040 Latex allergy status
CPT/HCPCS: 36415; 74018; 80053; 81001; 81025; 85007; 85025; 99284; Q0162

== ENCOUNTER 2018-02-27 11:20 | Observation (INO) | payer MEDICARE ==
[2018-02-27] MEDS ORDERED: SUBLIMAZE IV ONE (13:17)
[2018-02-27] MEDS ORDERED: FIORICET PO ONE (13:18)
[2018-02-27] MEDS ORDERED: ZOFRAN IV ONE (13:18)
--- NOTE | 2018-02-27 13:24 | Emergency Department Report ---
HPI - General Chief Complaint: Seizure Time Seen by Provider: 02/27/18 13:00 - HPI HPI: Room 7 The patient is a 42-year-old female comes in with chief complaint of syncope. The patient states approximately one week ago she fell while getting out of a car slipping and striking her head. There was no loss of consciousness and the patient did not go to the hospital. The patient states since after the fall she 's had a diffuse headache. Today prior to passing out patient was standing states she felt lightheaded, had a headache and then diffuse body pain and then collapsed. There was no witnessed seizure activity. Patient was brought into the hospital by family. Patient had some nausea but denies vomiting. The patient currently gives her pain score of 8/10. The patient states she has a history of migraines but not of her migraine medication helped. Location: [See above] Duration: [See above] Quality: Headache, body pain Severity: 8/10 Modifying factors: [see above] Context: [see above] Mode of transportation: [not driving] ED Past Medical Hx - Past Medical History Hx Hypertension: Yes Hx CVA: Yes Hx Diabetes: Yes Hx GERD: Yes Hx Renal Disease: Yes Hx Arthritis: Yes Hx Headaches / Migraines: Yes (MIGRAINES) Hx Seizures: Yes Hx Psychiatric Treatment: Yes Hx Asthma: Yes Additional medical history: lupus. high cholesterol. bipolar. depression. anxiety PANIC ATTACK. Hypothyroidism - Surgical History Hx Breast Surgery: Yes (right lumpectomy) Additional Surgical History: "rectal repair" after vaginal delivery. lump removed from right arm - Family History Family history: no significant - Social History Smoking Status: Never Smoker Substance Use Type: None - Medications Home Medications: Home Medications Medication Instructions Recorded Confirmed Last Taken Type Albuterol Sulfate [Ventolin HFA] 2 puff INHALATION PRN PRN 04/10/14 02/27/18 09:30 History Fluticasone/Salmeterol [Advair 1 inhalation INHALATION BID PRN 04/10/1408/13/14 10:30 History Diskus 250-50 mcg] Furosemide 2 tab PO DAILY 04/10/14 02/27/18 03/23/15 08:00 History Simvastatin 1 tab PO DAILY 04/10/14 02/27/18 03/23/15 08:00 History SUMAtriptan SUCCINATE [Imitrex] 100 mg PO PRN PRN 03/10/15 02/27/18 03/23/15 08: 00 History Ferrous Sulfate [Feosol 325 MG tab] 325 mg PO QDAY 08/10/16 02/27/18 Unknown History Riboflavin (Vitamin B2) 400 mg PO QDAY 08/10/16 02/27/18 Unknown History [Riboflavin] Topiramate [Topamax] 200 mg PO DAILY #14 tablet 08/12/16 02/27/18 Unknown Rx Acetaminophen [Tylenol Extra 1,000 mg PO QID PRN #60 tablet 11/18/17 02/27/18 Unknown Rx Strength] Cyclobenzaprine [Flexeril] 10 mg PO TID PRN #30 tablet 11/18/17 02/27/18 Unknown Rx Menthol/Camphor [[place] 1 applicatio TP BID PRN #1 tube 11/18/17 02/27/18 Unknown Rx Ointment] Amitriptyline [Elavil] 100 mg PO QHS 12/10/17 02/27/18 Unknown History Chlorzoxazone 500 mg PO DAILY 12/10/17 02/27/18 Unknown History Dexlansoprazole [Dexilant] 60 mg PO QDAY 12/10/17 02/27/18 Unknown History Doxepin HCl [Silenor] 3 mg PO QHS 12/10/17 02/27/18 Unknown History Duloxetine HCl [DULoxetine] 60 mg PO DAILY 12/10/17 02/27/18 Unknown History Hydroxychloroquine [Plaquenil] 200 mg PO QDAY 12/10/17 02/27/18 Unknown History Levothyroxine [Synthroid] 125 mcg PO DAILY@0600 12/10/17 02/27/18 Unknown History Losartan [Cozaar] 100 mg PO QDAY 12/10/17 02/27/18 Unknown History Lubiprostone (Nf) [Amitiza Cap 24 mcg PO DAILY 12/10/17 02/27/18 Unknown History (Nf)] Lurasidone HCl [Latuda] 120 mg PO QDAY 12/10/17 02/27/18 Unknown History Pregabalin [Lyrica] 150 mg PO DAILY 12/10/17 02/27/18 Unknown History Promethazine HCl [Promethazine TAB] 25 mg PO Q6H PRN 12/10/17 02/27/18 Unknown History Tizanidine HCl [tiZANidine] 2 mg PO DAILY 12/10/17 02/27/18 Unknown History clonazePAM [Klonopin] 0.5 mg PO DAILY 12/10/17 02/27/18 Unknown History traMADol [Ultram] 50 mg PO BID 12/10/17 02/27/18 Unknown History ED Review of Systems ROS: Stated complaint: POSSIBLE SEIZURE Other details as noted in HPI Constitutional: malaise Gastrointestinal: nausea. denies: vomiting Neurological: headache Physical Exam - Physical Exam Vital Signs: Vital Signs 02/27/18 12:09 Temperature 98.2 F Pulse Rate 81 Respiratory 16 Rate Blood Pressure 146/101 O2 Sat by Pulse 98 Oximetry Physical Exam: GENERAL: The patient is well-developed well-nourished female lying on stretcher not appearing to be in acute distress. [] HEENT: Normocephalic. Atraumatic. Extraocular motions are intact. Patient has moist mucous membranes. NECK: Supple. No meningitic signs are noted. Trachea midline CHEST/LUNGS: Clear to auscultation. There is no respiratory distress noted. HEART/CARDIOVASCULAR: Regular. There is no tachycardia. There is no gallop rub or murmur. ABDOMEN: Abdomen is soft, nontender. Patient has normal bowel sounds. There is no abdominal distention. SKIN: There is no rash. There is no edema. There is no diaphoresis. NEURO: The patient is awake, alert, and oriented. The patient is intermittently cooperative. Cranial nerves II through XII grossly intact. Patient will not fully technical analyst hands to assess strength bilaterally. The patient has normal speech MUSCULOSKELETAL: There is no evidence of acute injury. ED Course Vital Signs 02/27/18 12:09 Temperature 98.2 F Pulse Rate 81 Respiratory 16 Rate Blood Pressure 146/101 O2 Sat by Pulse 98 Oximetry ED Medical Decision Making - Lab Data Result diagrams: 02/27/18 13:42 02/27/18 13:42 Laboratory Tests 02/27/18 02/27/18 02/27/18 13:42 13:42 13:42 WBC 7.7 RBC 4.05 Hgb 11.7 Hct 35.7 MCV 88 MCH 29 MCHC 33 RDW 14.8 Plt Count 425 Lymph % (Auto) 46.4 H [place] % (Auto) 5.0 Eos % (Auto) 4.5 H Baso % (Auto) 0.8 Lymph # 3.6 [place] # 0.4 Eos # 0.3 Baso # 0.1 Seg Neutrophils % 43.3 Seg Neutrophils # 3.4 PT 13.1 INR 0.95 APTT 38.2 H Sodium 141 Potassium 3.9 Chloride 103.1 Carbon Dioxide 21 L Anion Gap 21 BUN 5 L Creatinine 1.1 Estimated GFR > 60 BUN/Creatinine Ratio 5 Glucose 101 H Calcium 9.1 Total Bilirubin 0.30 AST 39 ALT 31 Alkaline Phosphatase 75 Total Creatine Kinase 1060 H CK-MB (CK-2) 2.0 CK-MB (CK-2) Rel Index 0.1 Troponin T < 0.010 Total Protein 8.3 H Albumin 4.0 Albumin/Globulin Ratio 0.9 TSH Free T4 HCG, Qual Urine Opiates Screen Urine Methadone Screen Ur Barbiturates Screen Ur Phencyclidine Scrn Ur Amphetamines Screen U Benzodiazepines Scrn Urine Cocaine Screen U Marijuana (THC) Screen Drugs of Abuse Note Plasma/Serum Alcohol 02/27/18 02/27/18 02/27/18 13:42 13:42 13:42 WBC RBC Hgb Hct MCV MCH MCHC RDW Plt Count Lymph % (Auto) [place] % (Auto) Eos % (Auto) Baso % (Auto) Lymph # [place] # Eos # Baso # Seg Neutrophils % Seg Neutrophils # PT INR APTT Sodium Potassium Chloride Carbon Dioxide Anion Gap BUN Creatinine Estimated GFR BUN/Creatinine Ratio Glucose Calcium Total Bilirubin AST ALT Alkaline Phosphatase Total Creatine Kinase CK-MB (CK-2) CK-MB (CK-2) Rel Index Troponin T Total Protein Albumin Albumin/Globulin Ratio TSH 93.240 H Free T4 0.10 L HCG, Qual Negative Urine Opiates Screen Urine Methadone Screen Ur Barbiturates Screen Ur Phencyclidine Scrn Ur Amphetamines Screen U Benzodiazepines Scrn Urine Cocaine Screen U Marijuana (THC) Screen Drugs of Abuse Note Plasma/Serum Alcohol < 0.01 02/27/18 13:59 WBC RBC Hgb Hct MCV MCH MCHC RDW Plt Count Lymph % (Auto) [place] % (Auto) Eos % (Auto) Baso % (Auto) Lymph # [place] # Eos # Baso # Seg Neutrophils % Seg Neutrophils # PT INR APTT Sodium Potassium Chloride Carbon Dioxide Anion Gap BUN Creatinine Estimated GFR BUN/Creatinine Ratio Glucose Calcium Total Bilirubin AST ALT Alkaline Phosphatase Total Creatine Kinase CK-MB (CK-2) CK-MB (CK-2) Rel Index Troponin T Total Protein Albumin Albumin/Globulin Ratio TSH Free T4 HCG, Qual Urine Opiates Screen Presumptive negative Urine Methadone Screen Presumptive negative Ur Barbiturates Screen Presumptive negative Ur Phencyclidine Scrn Presumptive negative Ur Amphetamines Screen Presumptive negative U Benzodiazepines Scrn Presumptive negative Urine Cocaine Screen Presumptive negative U Marijuana (THC) Screen Presumptive negative Drugs of Abuse Note Disclamer Plasma/Serum Alcohol - EKG Data -: EKG Interpreted by Me EKG shows normal: sinus rhythm Rate: normal - EKG Data When compared to previous EKG there are: no significant change Interpretation: nonspecific ST-T wave ayaz (consistent with previous EKG dated regarding T-wave inversions/flattened T-wave diffusely) - Radiology Data Radiology results: report reviewed (CT head, CT cervical spine), image reviewed (CT head, CT cervical spine) CT head, CT cervical spine (read by radiologist) (-no acute findings - Differential Diagnosis syncope, ICH, vasovagal syncopal, migraine, cervical fracture, cervical str Critical care attestation.: If time is entered above; I have spent that time in minutes in the direct care of this critically ill patient, excluding procedure time. ED Disposition Clinical Impression: Syncope, Hypothyroidism, Rhabdomyolysis, Headache Disposition: -09 OP ADMIT IP TO THIS HOSP Is pt being admited?: Yes Does the pt Need Aspirin: No Condition: Fair Instructions: Syncope (ED) Referrals: PRIMARY CARE, [Primary Care Provider] - 3-5 Days Time of Disposition: 15:38 (hospitalist notified (Dr Echeverria))
[2018-02-27 13:54] LABS: Basophils # (Auto) 0.1 K/mm3 (0.0-0.1); Basophils % (Auto) 0.8 % (0.0-1.8); Eosinophils # (Auto) 0.3 K/mm3 (0.0-0.4); Eosinophils % (Auto) 4.5 % (0.0-4.3); Hematocrit 35.7 % (30.3-42.9); Hemoglobin 11.7 gm/dl (10.1-14.3); Lymphocytes # (Auto) 3.6 K/mm3 (1.2-5.4); Lymphocytes % (Auto) 46.4 % (13.4-35.0); Mean Corpuscular HGB Conc 33 % (30-34); Mean Corpuscular Hemoglobin 29 pg (28-32); Mean Corpuscular Volume 88 fl (79-97); Monocytes # (Auto) 0.4 K/mm3 (0.0-0.8); Platelet Count 425 K/mm3 (140-440); Red Blood Count 4.05 M/mm3 (3.65-5.03); Red Cell Distribution Width 14.8 % (13.2-15.2)
[2018-02-27 14:08] LABS: INR 0.95 (0.87-1.13)
[2018-02-27 14:09] LABS: Partial Thromboplastin Time 38.2 Sec. (24.2-36.6)
[2018-02-27 14:16] LABS: Alanine Aminotransferase 31 units/L (7-56); BUN/Creatinine Ratio 5; Blood Urea Nitrogen 5 mg/dL (7-17); Calcium 9.1 mg/dL (8.4-10.2); Hemolysis Index 14
[2018-02-27 14:31] LABS: Free T4 (Free Thyroxine) 0.1 ng/dL (0.76-1.46)
[2018-02-27 14:33] LABS: Amphetamine Screen,Urine PRESUMPTIVE NEGATIVE; Benzodiazepines Screen,Urine PRESUMPTIVE NEGATIVE; Cannabinoid Screen,Urine PRESUMPTIVE NEGATIVE; Cocaine Screen,Urine PRESUMPTIVE NEGATIVE; Methadone Screen,Urine PRESUMPTIVE NEGATIVE; Opiate Screen,Urine PRESUMPTIVE NEGATIVE
--- NOTE | 2018-02-27 14:57 | Cat Scan Report ---
CT HEAD WITHOUT CONTRAST: HISTORY: Syncope, headache. TECHNIQUE: Sequential 2.5mm CT images. COMPARISON: 12/10/17. FINDINGS: Cerebral Parenchyma: Within normal limits. Cerebellum: Within normal limits. Brainstem: Within normal limits. Ventricles: Normal. Sella: Normal. A Extra-axial spaces: Normal. Basal Cisterns: Normal. Intracranial Hemorrhage: None. Midline Shift: None. Calvarium: Normal. Sinuses: Moderate mucosal thickening has developed throughout the bilateral maxillary sinuses since the previous exam. The remaining paranasal sinuses are well-aerated. Mastoid Air Cells: Normal. Visualized Orbits: Normal. IMPRESSION: Cranial CT scan within normal limits. Maxillary sinus disease.
--- NOTE | 2018-02-27 14:58 | Cat Scan Report ---
CT SCAN OF THE CERVICAL SPINE: HISTORY: Pain after fall. TECHNIQUE: Contiguous 1.25 mm axial images of the cervical spine were obtained. Sagittal and coronal reformatted images. FINDINGS: There is normal alignment of the cervical spine. The body, pedicles and posterior ligaments appear normal. No evidence of fracture or subluxation is seen. [id number] degenerative disc disease is noted at C5-6. The spinal canal appears normal. The prevertebral soft tissues appear normal. IMPRESSION: Mild cervical spondylosis. No acute process is noted.
[2018-02-27] MEDS ORDERED: AMBIEN PO PRN (16:59)
[2018-02-27] MEDS ORDERED: ZOFRAN IV PRN ×2 (16:59→21:50)
[2018-02-27] MEDS ORDERED: SODIUM CHLORIDE FLUSH SYRINGE 10 ML IV PRN ×2 (16:59→21:50)
[2018-02-27] MEDS ORDERED: TYLENOL PO PRN ×2 (16:59→21:50)
[2018-02-27] MEDS ORDERED: REGLAN IV PRN (16:59)
[2018-02-27] MEDS ORDERED: NACL 0.9% 1000 ML 1,000 ML IV SCH (17:00)
[2018-02-27] MEDS: MORPHINE IV PRN (17:20)
[2018-02-27] MEDS: PERCOCET 5/325 PO PRN (20:42)
[2018-02-27] MEDS ORDERED: SODIUM CHLORIDE FLUSH SYRINGE 10 ML IV SCH (22:00)
[2018-02-28] MEDS: PEPCID PO SCH ×2 (00:18→12:52)
[2018-02-28] MEDS: MORPHINE IV PRN (00:18)
[2018-02-28] MEDS: HEPARIN SUB-Q SCH ×2 (00:18→12:55)
[2018-02-28] MEDS: SODIUM CHLORIDE FLUSH SYRINGE 10 ML IV SCH ×2 (00:22→10:56)
[2018-02-28] MEDS ORDERED: PHENERGAN PO PRN (02:09)
[2018-02-28] MEDS ORDERED: SALMETEROL INHALATION PRN (02:09)
[2018-02-28] MEDS ORDERED: FLEXERIL PO PRN (02:09)
[2018-02-28] MEDS ORDERED: TYLENOL PO PRN (02:09)
[2018-02-28] MEDS ORDERED: FLUTICASONE INHALATION PRN (02:09)
--- NOTE | 2018-02-28 02:20 | Event Note ---
Date: 02/27/18 See Dictated H/p in reports
--- NOTE | 2018-02-28 02:28 | History and Physical Report ---
CHIEF COMPLAINT: Syncope. HISTORY OF PRESENT ILLNESS: A 42-year-old female, very poor historian with history of hypertension, questionable cerebrovascular accident, diabetes and gastroesophageal reflux disease, comes in for passing out while getting out of car. Loss of consciousness for a few seconds. No chest pain. Chest pain while in the ER. No exacerbating or relieving factors. Pain is about 5 on a scale of 1-10, but not present at the time of my examination. The brother who was at the bedside says that she daily passes out for a few seconds and that he has to wake her up. PAST MEDICAL HISTORY: Significant for hypertension, cerebrovascular accident, diabetes, GERD, chronic kidney disease and arthritis, migraines, psychiatric treatment, seizure disorder, lupus, high cholesterol, bipolar disorder, depression, anxiety, panic attacks, hypothyroidism. PAST SURGICAL HISTORY: Significant for right lumpectomy and rectal repair of the vaginal delivery, lump removed from right arm. FAMILY HISTORY: Hypertension. SOCIAL HISTORY: Does not smoke. No alcohol, no recreational drugs. CURRENT MEDICATIONS: On the chart. Numerous. REVIEW OF SYSTEMS: Significant for passing out and chest pain while in the ER. Otherwise, review of systems negative. PHYSICAL EXAMINATION: GENERAL: Young female, cooperative during examination. VITAL SIGNS: Blood pressure is 119/82, temperature is 97.5, pulse is 96, respirations 17. HEENT: Unremarkable. Pupils are equal and reactive. NECK: Supple, no lymphadenopathy, no thyromegaly. LUNGS: Clear to auscultation and percussion. Good air entry. CARDIOVASCULAR: S1, S2 heard. No gallop, no murmur, no rub. Apical impulse in the left fifth intercostal space and midclavicular line. ABDOMEN: Soft and benign. No hepatosplenomegaly. No guarding, no rigidity. EXTREMITIES: Good pedal pulses. No pedal edema. CENTRAL NERVOUS SYSTEM: Alert and oriented x 4, nonfocal exam. SKIN: Normal. LABORATORY DATA: Significant for normal hemoglobin and hematocrit, normal white count. Electrolytes are normal. BUN and creatinine is 5 and 1.1. Hemoglobin A1c 6.2. Creatine kinase is 2060. TSH is 93.240. Drug screen is negative. ASSESSMENT AND PLAN: 1. Syncope. Syncope workup. The patient to get Lexiscan, echocardiogram and carotid duplex scan. 2. Dehydration. The patient to get IV fluids. 3. Severe hypothyroidism. The patient started on thyroid medicine. TSH is 93.24 and T4 is low. We will start her on Synthroid at 150 mcg daily and recheck the TSH at the time of discharge. 4. Possible myxedema as well as asthma. Continue bronchodilators. 5. Hyperlipidemia. Continue simvastatin. 6. Migraine headaches. Continue Imitrex p.r.n. 7. Gastroesophageal reflux disease. Continue Dexilant. 8. Peripheral neuropathy. Continue Lyrica 150 mg daily. 9. Muscle spasms. Continue tizanidine. 10. Deep venous thrombosis prophylaxis, heparin 5000 q. 12 h. In summary, the patient is on too many medications. Medications may be causing syncope too. Medications to be cut down gradually till the time of discharge. Workup for syncope ordered. JOB# [id number] SUKHWINDER/NTS
[2018-02-28] MEDS: PERCOCET 5/325 PO PRN (04:51)
[2018-02-28] MEDS ORDERED: SYNTHROID PO SCH (06:00)
[2018-02-28 07:49] LABS: Basophils # (Auto) 0.1 K/mm3 (0.0-0.1); Eosinophils # (Auto) 0.3 K/mm3 (0.0-0.4); Eosinophils % (Auto) 4.2 % (0.0-4.3); Hemoglobin 11.1 gm/dl (10.1-14.3); Lymphocytes # (Auto) 4.1 K/mm3 (1.2-5.4); Lymphocytes % (Auto) 53.4 % (13.4-35.0); Mean Corpuscular HGB Conc 34 % (30-34); Mean Corpuscular Hemoglobin 29 pg (28-32); Mean Corpuscular Volume 87 fl (79-97); Monocytes # (Auto) 0.5 K/mm3 (0.0-0.8); Platelet Count 393 K/mm3 (140-440); Red Cell Distribution Width 14.5 % (13.2-15.2)
[2018-02-28] MEDS ORDERED: BROVANA NEBU IH SCH (08:00)
[2018-02-28] MEDS ORDERED: PULMICORT IH SCH (08:00)
[2018-02-28 08:17] LABS: Alanine Aminotransferase 25 units/L (7-56); BUN/Creatinine Ratio 4; Blood Urea Nitrogen 6 mg/dL (7-17); Hemolysis Index 6
[2018-02-28] MEDS ORDERED: NON-FORMULARY (Lubiprostone (Nf) 24 MCG) PO SCH (10:00)
[2018-02-28] MEDS ORDERED: RIBOFLAVIN 400 MG PO SCH (10:00)
[2018-02-28] MEDS ORDERED: PROTONIX PO SCH (10:00)
[2018-02-28] MEDS ORDERED: COZAAR PO SCH (10:00)
[2018-02-28] MEDS ORDERED: NON-FORMULARY (Lurasidone Hcl [Latuda] 120 MG) PO SCH (10:00)
[2018-02-28] MEDS ORDERED: ULTRAM PO SCH (10:00)
[2018-02-28] MEDS ORDERED: CHLORZOXAZONE 500 MG PO SCH (10:00)
[2018-02-28] MEDS ORDERED: TOPAMAX PO SCH (10:00)
[2018-02-28] MEDS ORDERED: PLAQUENIL PO SCH (10:00)
[2018-02-28] MEDS ORDERED: CYMBALTA PO SCH (10:00)
[2018-02-28] MEDS ORDERED: LEXISCAN IV ONE ×2 (10:48→10:51)
[2018-02-28] MEDS ORDERED: LASIX PO SCH (12:00)
--- NOTE | 2018-02-28 12:56 | Consultation ---
History of Present Illness Consult date: 02/28/18 Consult reason: syncope History of present illness: 42 year old female with multiple medical problems presenting with syncope. She is a very poor historian. Chart review reveals that patient passed out while getting in her car. Per family member, patient has recurrent episode of syncope - almost daily. Echo this admission is showing normal LVEF, Lexiscan MPI no ischemia and tele showing no arrhythmias. 12 lead ECG showing SR, borlderline QT interval, non-specific ST-T wave abnormalities. Past History Past Medical History: diabetes, hypertension, hyperlipidemia, hypothyroidism, seizures, stroke, other (Bipolar disorder and Depression) Past Surgical History: Other (Breast and rectal surgery) Social history: no significant social history Family history: hypertension Medications and Allergies Allergies Allergy/AdvReac Type Severity Reaction Status Date / Time aspirin Allergy Hives Verified 01/20/18 07:51 butorphanol tartrate Allergy Seizure Verified 01/20/18 07:51 [From Stadol] latex Allergy Hives Verified 01/20/18 07:51 NSAIDS (Non-Steroidal Allergy Hives Verified 01/20/18 07:51 Anti-Inflamma Home Medications Medication Instructions Recorded Confirmed Last Taken Type Albuterol Sulfate [Ventolin HFA] 2 puff INHALATION PRN PRN 04/10/14 02/27/18 09:30 History Fluticasone/Salmeterol [Advair 1 inhalation INHALATION BID PRN 04/10/1408/13/14 10:30 History Diskus 250-50 mcg] Furosemide 2 tab PO DAILY 04/10/14 02/27/18 03/23/15 08:00 History Simvastatin 1 tab PO DAILY 04/10/14 02/27/18 03/23/15 08:00 History SUMAtriptan SUCCINATE [Imitrex] 100 mg PO PRN PRN 03/10/15 02/27/18 03/23/15 08: 00 History Ferrous Sulfate [Feosol 325 MG tab] 325 mg PO QDAY 08/10/16 02/27/18 Unknown History Riboflavin (Vitamin B2) 400 mg PO QDAY 08/10/16 02/27/18 Unknown History [Riboflavin] Topiramate [Topamax] 200 mg PO DAILY #14 tablet 08/12/16 02/27/18 Unknown Rx Acetaminophen [Tylenol Extra 1,000 mg PO QID PRN #60 tablet 11/18/17 02/27/18 Unknown Rx Strength] Cyclobenzaprine [Flexeril] 10 mg PO TID PRN #30 tablet 11/18/17 02/27/18 Unknown Rx Menthol/Camphor [Ace Durand 1 applicatio TP BID PRN #1 tube 11/18/17 02/27/18 Unknown Rx Ointment] Amitriptyline [Elavil] 100 mg PO QHS 12/10/17 02/27/18 Unknown History Chlorzoxazone 500 mg PO DAILY 12/10/17 02/27/18 Unknown History Dexlansoprazole [Dexilant] 60 mg PO QDAY 12/10/17 02/27/18 Unknown History Doxepin HCl [Silenor] 3 mg PO QHS 12/10/17 02/27/18 Unknown History Duloxetine HCl [DULoxetine] 60 mg PO DAILY 12/10/17 02/27/18 Unknown History Hydroxychloroquine [Plaquenil] 200 mg PO QDAY 12/10/17 02/27/18 Unknown History Levothyroxine [Synthroid] 125 mcg PO DAILY@0600 12/10/17 02/27/18 Unknown History Losartan [Cozaar] 100 mg PO QDAY 12/10/17 02/27/18 Unknown History Lubiprostone (Nf) [Amitiza Cap 24 mcg PO DAILY 12/10/17 02/27/18 Unknown History (Nf)] Lurasidone HCl [Latuda] 120 mg PO QDAY 12/10/17 02/27/18 Unknown History Pregabalin [Lyrica] 150 mg PO DAILY 12/10/17 02/27/18 Unknown History Promethazine HCl [Promethazine TAB] 25 mg PO Q6H PRN 12/10/17 02/27/18 Unknown History Tizanidine HCl [tiZANidine] 2 mg PO DAILY 12/10/17 02/27/18 Unknown History clonazePAM [Klonopin] 0.5 mg PO DAILY 12/10/17 02/27/18 Unknown History traMADol [Ultram] 50 mg PO BID 12/10/17 02/27/18 Unknown History Active Meds: Active Medications Acetaminophen (Tylenol) 650 mg PO Q4H PRN PRN Reason: Pain MILD(1-3)/Fever >100.5/ROBLES Acetaminophen (Tylenol) 1,000 mg PO QID PRN PRN Reason: Pain Amitriptyline HCl (Elavil) 100 mg PO QHS [facility] Arformoterol Tartrate (Brovana Nebu) 15 mcg IH Q12HRT [facility] Last Admin: 02/28/18 07:43 Dose: 15 mcg Budesonide (Pulmicort) 0.5 mg IH Q12HRT [facility] Last Admin: 02/28/18 07:43 Dose: 0.5 mg Clonazepam (Klonopin) 0.5 mg PO DAILY [facility] Cyclobenzaprine HCl (Flexeril) 10 mg PO TID PRN PRN Reason: Muscle Spasm Duloxetine HCl (Cymbalta) 60 mg PO DAILY [facility] Famotidine (Pepcid) 20 mg PO BID [facility] Last Admin: 02/28/18 00:18 Dose: 20 mg Furosemide (Lasix) 20 mg PO DAILY [facility] Heparin Sodium (Porcine) (Heparin) 5,000 unit SUB-Q Q12HR [facility] Last Admin: 02/28/18 00:18 Dose: 5,000 unit Hydroxychloroquine Sulfate (Plaquenil) 200 mg PO QDAY [facility] Sodium Chloride (Nacl 0.9% 1000 Ml) 1,000 mls @ 75 mls/hr IV DIRECT [facility] Last Admin: 02/28/18 04:52 Dose: 75 mls/hr Levothyroxine Sodium (Synthroid) 200 mcg PO DAILY@0600 [facility] Last Admin: 02/28/18 05:00 Dose: 200 mcg Losartan Potassium (Cozaar) 50 mg PO QDAY [facility] Metoclopramide HCl (Reglan) 10 mg IV Q6H PRN PRN Reason: Nausea And Vomiting Miscellaneous Medication (Chlorzoxazone [Chlorzoxazone]) 500 mg PO DAILY [facility] Miscellaneous Medication (Lubiprostone (Nf)) 24 mcg PO DAILY [facility] Miscellaneous Medication (Lurasidone Hcl [Latuda]) 120 mg PO QDAY [facility] Miscellaneous Medication (Riboflavin (Vitamin B2) [Riboflavin]) 400 mg PO QDAY [facility] Morphine Sulfate (Morphine) 2 mg IV Q4H PRN PRN Reason: Pain, Moderate (4-6) Last Admin: 02/28/18 00:18 Dose: 2 mg Ondansetron HCl (Zofran) 4 mg IV Q8H PRN PRN Reason: Nausea And Vomiting Oxycodone/Acetaminophen (Percocet 5/325) 1 tab PO Q6H PRN PRN Reason: Pain, Moderate (4-6) Last Admin: 02/28/18 04:51 Dose: 1 tab Pantoprazole Sodium (Protonix) 40 mg PO DAILY [facility] Pravastatin Sodium (Pravachol) 80 mg PO QHS [facility] Promethazine HCl (Phenergan) 25 mg PO Q6H PRN PRN Reason: Nausea Sodium Chloride (Sodium Chloride Flush Syringe 10 Ml) 10 ml IV BID [facility] Last Admin: 02/28/18 00:22 Dose: 10 ml Sodium Chloride (Sodium Chloride Flush Syringe 10 Ml) 10 ml IV PRN PRN PRN Reason: LINE FLUSH Last Admin: 02/27/18 17:20 Dose: 10 ml Topiramate (Topamax) 200 mg PO DAILY [facility] Tramadol HCl (Ultram) 50 mg PO BID [facility] Zolpidem Tartrate (Ambien) 5 mg PO QHS PRN PRN Reason: Insomnia Review of Systems ROS unobtainable: due to mental status Physical Examination Vital Signs Temp Pulse Resp BP Pulse Ox 98.2 F 81 16 146/101 98 02/27/18 12:09 02/27/18 12:09 02/27/18 12:09 02/27/18 12:09 02/27/18 12:09 General appearance: no acute distress Neck: Positive: neck supple Cardiac: Positive: Reg Rate and Rhythm Lungs: Positive: Normal Exam Abdomen: Positive: Soft Results 02/28/18 07:05 02/28/18 07:05 Cardiac Enzymes 02/27/18 02/27/18 02/27/18 Range/Units 13:42 13:42 13:42 WBC 7.7 (4.5-11.0) K/mm3 RBC 4.05 (3.65-5.03) M/mm3 Hgb 11.7 (10.1-14.3) gm/dl Hct 35.7 (30.3-42.9) % MCV 88 (79-97) fl MCH 29 (28-32) pg MCHC 33 (30-34) % RDW 14.8 (13.2-15.2) % Plt Count 425 (140-440) K/mm3 Lymph % (Auto) 46.4 H (13.4-35.0) % [place] % (Auto) 5.0 (0.0-7.3) % Eos % (Auto) 4.5 H (0.0-4.3) % Baso % (Auto) 0.8 (0.0-1.8) % Lymph # 3.6 (1.2-5.4) K/mm3 [place] # 0.4 (0.0-0.8) K/mm3 Eos # 0.3 (0.0-0.4) K/mm3 Baso # 0.1 (0.0-0.1) K/mm3 Seg Neutrophils % 43.3 (40.0-70.0) % Seg Neutrophils # 3.4 (1.8-7.7) K/mm3 PT 13.1 (12.2-14.9) Sec. INR 0.95 (0.87-1.13) APTT 38.2 H (24.2-36.6) Sec. Sodium 141 (137-145) mmol/L Potassium 3.9 (3.6-5.0) mmol/L Chloride 103.1 (98-107) mmol/L Carbon Dioxide 21 L (22-30) mmol/L Anion Gap 21 mmol/L BUN 5 L (7-17) mg/dL Creatinine 1.1 (0.7-1.2) mg/dL Estimated GFR > 60 ml/min BUN/Creatinine Ratio 5 % Glucose 101 H (65-100) mg/dL POC Glucose (70-105) Hemoglobin A1c (4-6) % Calcium 9.1 (8.4-10.2) mg/dL Total Bilirubin 0.30 (0.1-1.2) mg/dL AST 39 (5-40) units/L ALT 31 (7-56) units/L Alkaline Phosphatase 75 (35-129) units/L Total Creatine Kinase 1060 H (30-135) units/L CK-MB (CK-2) 2.0 (0.0-4.0) ng/mL CK-MB (CK-2) Rel Index 0.1 (0-4) Troponin T < 0.010 (0.00-0.029) ng/mL Total Protein 8.3 H (6.3-8.2) g/dL Albumin 4.0 (3.9-5) g/dL Albumin/Globulin Ratio 0.9 % TSH (0.270-4.200) mlU/mL Free T4 (0.76-1.46) ng/dL HCG, Qual (Negative) Urine Opiates Screen Urine Methadone Screen Ur Barbiturates Screen Ur Phencyclidine Scrn Ur Amphetamines Screen U Benzodiazepines Scrn Urine Cocaine Screen U Marijuana (THC) Screen Drugs of Abuse Note Plasma/Serum Alcohol (0-0.07) % 02/27/18 02/27/18 02/27/18 Range/Units 13:42 13:42 13:42 WBC (4.5-11.0) K/mm3 RBC (3.65-5.03) M/mm3 Hgb (10.1-14.3) gm/dl Hct (30.3-42.9) % MCV (79-97) fl MCH (28-32) pg MCHC (30-34) % RDW (13.2-15.2) % Plt Count (140-440) K/mm3 Lymph % (Auto) (13.4-35.0) % [place] % (Auto) (0.0-7.3) % Eos % (Auto) (0.0-4.3) % Baso % (Auto) (0.0-1.8) % Lymph # (1.2-5.4) K/mm3 [place] # (0.0-0.8) K/mm3 Eos # (0.0-0.4) K/mm3 Baso # (0.0-0.1) K/mm3 Seg Neutrophils % (40.0-70.0) % Seg Neutrophils # (1.8-7.7) K/mm3 PT (12.2-14.9) Sec. INR (0.87-1.13) APTT (24.2-36.6) Sec. Sodium (137-145) mmol/L Potassium (3.6-5.0) mmol/L Chloride (98-107) mmol/L Carbon Dioxide (22-30) mmol/L Anion Gap mmol/L BUN (7-17) mg/dL Creatinine (0.7-1.2) mg/dL Estimated GFR ml/min BUN/Creatinine Ratio % Glucose (65-100) mg/dL POC Glucose (70-105) Hemoglobin A1c (4-6) % Calcium (8.4-10.2) mg/dL Total Bilirubin (0.1-1.2) mg/dL AST (5-40) units/L ALT (7-56) units/L Alkaline Phosphatase (35-129) units/L Total Creatine Kinase (30-135) units/L CK-MB (CK-2) (0.0-4.0) ng/mL CK-MB (CK-2) Rel Index (0-4) Troponin T (0.00-0.029) ng/mL Total Protein (6.3-8.2) g/dL Albumin (3.9-5) g/dL Albumin/Globulin Ratio % TSH 93.240 H (0.270-4.200) mlU/mL Free T4 0.10 L (0.76-1.46) ng/dL HCG, Qual Negative (Negative) Urine Opiates Screen Urine Methadone Screen Ur Barbiturates Screen Ur Phencyclidine Scrn Ur Amphetamines Screen U Benzodiazepines Scrn Urine Cocaine Screen U Marijuana (THC) Screen Drugs of Abuse Note Plasma/Serum Alcohol < 0.01 (0-0.07) % 02/27/18 02/27/18 02/27/18 Range/Units 13:59 17:31 22:45 WBC (4.5-11.0) K/mm3 RBC (3.65-5.03) M/mm3 Hgb (10.1-14.3) gm/dl Hct (30.3-42.9) % MCV (79-97) fl MCH (28-32) pg MCHC (30-34) % RDW (13.2-15.2) % Plt Count (140-440) K/mm3 Lymph % (Auto) (13.4-35.0) % [place] % (Auto) (0.0-7.3) % Eos % (Auto) (0.0-4.3) % Baso % (Auto) (0.0-1.8) % Lymph # (1.2-5.4) K/mm3 [place] # (0.0-0.8) K/mm3 Eos # (0.0-0.4) K/mm3 Baso # (0.0-0.1) K/mm3 Seg Neutrophils % (40.0-70.0) % Seg Neutrophils # (1.8-7.7) K/mm3 PT (12.2-14.9) Sec. INR (0.87-1.13) APTT (24.2-36.6) Sec. Sodium (137-145) mmol/L Potassium (3.6-5.0) mmol/L Chloride (98-107) mmol/L Carbon Dioxide (22-30) mmol/L Anion Gap mmol/L BUN (7-17) mg/dL Creatinine (0.7-1.2) mg/dL Estimated GFR ml/min BUN/Creatinine Ratio % Glucose (65-100) mg/dL POC Glucose (70-105) Hemoglobin A1c 6.2 H (4-6) % Calcium (8.4-10.2) mg/dL Total Bilirubin (0.1-1.2) mg/dL AST (5-40) units/L ALT (7-56) units/L Alkaline Phosphatase (35-129) units/L Total Creatine Kinase (30-135) units/L CK-MB (CK-2) (0.0-4.0) ng/mL CK-MB (CK-2) Rel Index (0-4) Troponin T < 0.010 (0.00-0.029) ng/mL Total Protein (6.3-8.2) g/dL Albumin (3.9-5) g/dL Albumin/Globulin Ratio % TSH (0.270-4.200) mlU/mL Free T4 (0.76-1.46) ng/dL HCG, Qual (Negative) Urine Opiates Screen Presumptive negative Urine Methadone Screen Presumptive negative Ur Barbiturates Screen Presumptive negative Ur Phencyclidine Scrn Presumptive negative Ur Amphetamines Screen Presumptive negative U Benzodiazepines Scrn Presumptive negative Urine Cocaine Screen Presumptive negative U Marijuana (THC) Screen Presumptive negative Drugs of Abuse Note Disclamer Plasma/Serum Alcohol (0-0.07) % 02/27/18 02/28/18 02/28/18 Range/Units 23:53 06:09 07:05 WBC 7.7 (4.5-11.0) K/mm3 RBC 3.80 (3.65-5.03) M/mm3 Hgb 11.1 (10.1-14.3) gm/dl Hct 33.0 (30.3-42.9) % MCV 87 (79-97) fl MCH 29 (28-32) pg MCHC 34 (30-34) % RDW 14.5 (13.2-15.2) % Plt Count 393 (140-440) K/mm3 Lymph % (Auto) 53.4 H (13.4-35.0) % [place] % (Auto) 6.0 (0.0-7.3) % Eos % (Auto) 4.2 (0.0-4.3) % Baso % (Auto) 1.0 (0.0-1.8) % Lymph # 4.1 (1.2-5.4) K/mm3 [place] # 0.5 (0.0-0.8) K/mm3 Eos # 0.3 (0.0-0.4) K/mm3 Baso # 0.1 (0.0-0.1) K/mm3 Seg Neutrophils % 35.4 L (40.0-70.0) % Seg Neutrophils # 2.7 (1.8-7.7) K/mm3 PT (12.2-14.9) Sec. INR (0.87-1.13) APTT (24.2-36.6) Sec. Sodium (137-145) mmol/L Potassium (3.6-5.0) mmol/L Chloride (98-107) mmol/L Carbon Dioxide (22-30) mmol/L Anion Gap mmol/L BUN (7-17) mg/dL Creatinine (0.7-1.2) mg/dL Estimated GFR ml/min BUN/Creatinine Ratio % Glucose (65-100) mg/dL POC Glucose 109 H 111 H (70-105) Hemoglobin A1c (4-6) % Calcium (8.4-10.2) mg/dL Total Bilirubin (0.1-1.2) mg/dL AST (5-40) units/L ALT (7-56) units/L Alkaline Phosphatase (35-129) units/L Total Creatine Kinase (30-135) units/L CK-MB (CK-2) (0.0-4.0) ng/mL CK-MB (CK-2) Rel Index (0-4) Troponin T (0.00-0.029) ng/mL Total Protein (6.3-8.2) g/dL Albumin (3.9-5) g/dL Albumin/Globulin Ratio % TSH (0.270-4.200) mlU/mL Free T4 (0.76-1.46) ng/dL HCG, Qual (Negative) Urine Opiates Screen Urine Methadone Screen Ur Barbiturates Screen Ur Phencyclidine Scrn Ur Amphetamines Screen U Benzodiazepines Scrn Urine Cocaine Screen U Marijuana (THC) Screen Drugs of Abuse Note Plasma/Serum Alcohol (0-0.07) % 02/28/18 Range/Units 07:05 WBC (4.5-11.0) K/mm3 RBC (3.65-5.03) M/mm3 Hgb (10.1-14.3) gm/dl Hct (30.3-42.9) % MCV (79-97) fl MCH (28-32) pg MCHC (30-34) % RDW (13.2-15.2) % Plt Count (140-440) K/mm3 Lymph % (Auto) (13.4-35.0) % [place] % (Auto) (0.0-7.3) % Eos % (Auto) (0.0-4.3) % Baso % (Auto) (0.0-1.8) % Lymph # (1.2-5.4) K/mm3 [place] # (0.0-0.8) K/mm3 Eos # (0.0-0.4) K/mm3 Baso # (0.0-0.1) K/mm3 Seg Neutrophils % (40.0-70.0) % Seg Neutrophils # (1.8-7.7) K/mm3 PT (12.2-14.9) Sec. INR (0.87-1.13) APTT (24.2-36.6) Sec. Sodium 143 (137-145) mmol/L Potassium 3.6 (3.6-5.0) mmol/L Chloride 101.8 (98-107) mmol/L Carbon Dioxide 27 (22-30) mmol/L Anion Gap 18 mmol/L BUN 6 L (7-17) mg/dL Creatinine 1.4 H (0.7-1.2) mg/dL Estimated GFR 50 ml/min BUN/Creatinine Ratio 4 % Glucose 115 H (65-100) mg/dL POC Glucose (70-105) Hemoglobin A1c (4-6) % Calcium 9.0 (8.4-10.2) mg/dL Total Bilirubin 0.30 (0.1-1.2) mg/dL AST 30 (5-40) units/L ALT 25 (7-56) units/L Alkaline Phosphatase 71 (35-129) units/L Total Creatine Kinase (30-135) units/L CK-MB (CK-2) (0.0-4.0) ng/mL CK-MB (CK-2) Rel Index (0-4) Troponin T < 0.010 (0.00-0.029) ng/mL Total Protein 7.3 (6.3-8.2) g/dL Albumin 4.0 (3.9-5) g/dL Albumin/Globulin Ratio 1.2 % TSH (0.270-4.200) mlU/mL Free T4 (0.76-1.46) ng/dL HCG, Qual (Negative) Urine Opiates Screen Urine Methadone Screen Ur Barbiturates Screen Ur Phencyclidine Scrn Ur Amphetamines Screen U Benzodiazepines Scrn Urine Cocaine Screen U Marijuana (THC) Screen Drugs of Abuse Note Plasma/Serum Alcohol (0-0.07) % Coagulation 02/27/18 Range/Units 13:42 PT 13.1 (12.2-14.9) Sec. INR 0.95 (0.87-1.13) APTT 38.2 H (24.2-36.6) Sec. CBC 02/27/18 02/28/18 Range/Units 13:42 07:05 WBC 7.7 7.7 (4.5-11.0) K/mm3 RBC 4.05 3.80 (3.65-5.03) M/mm3 Hgb 11.7 11.1 (10.1-14.3) gm/dl Hct 35.7 33.0 (30.3-42.9) % Plt Count 425 393 (140-440) K/mm3 Lymph # 3.6 4.1 (1.2-5.4) K/mm3 [place] # 0.4 0.5 (0.0-0.8) K/mm3 Eos # 0.3 0.3 (0.0-0.4) K/mm3 Baso # 0.1 0.1 (0.0-0.1) K/mm3 Comprehensive Metabolic Panel 02/27/18 02/28/18 Range/Units 13:42 07:05 Sodium 141 143 (137-145) mmol/L Potassium 3.9 3.6 (3.6-5.0) mmol/L Chloride 103.1 101.8 (98-107) mmol/L Carbon Dioxide 21 L 27 (22-30) mmol/L BUN 5 L 6 L (7-17) mg/dL Creatinine 1.1 1.4 H (0.7-1.2) mg/dL Glucose 101 H 115 H (65-100) mg/dL Calcium 9.1 9.0 (8.4-10.2) mg/dL AST 39 30 (5-40) units/L ALT 31 25 (7-56) units/L Alkaline Phosphatase 75 71 (35-129) units/L Total Protein 8.3 H 7.3 (6.3-8.2) g/dL Albumin 4.0 4.0 (3.9-5) g/dL EKG interpretations - Telemetry EKG Rhythm: Sinus Rhythm Assessment and Plan Syncope - recurrent Normal LVEF Normal lexiscan MPI No arrhythmias recorded on tele Type II DM Systemic Hypertension Hyperlipidemia Severe hypothyroidism Bipolar disorder Depression History of CVA and seizure disorder Very poor historian Recommendations: No further cardiac work-up is recommended
--- NOTE | 2018-02-28 14:51 | Treadmill Report ---
INDICATION FOR PROCEDURE: Chest pain. ORDERING PHYSICIAN: Scott Echeverria MD FINDINGS: There is no scintigraphic evidence of myocardial ischemia. The left ventricle is normal in size. The left ventricular ejection fraction is measured at 55% with normal wall motion and wall thickening. There is a mild decrease counts noted in the anterior wall, both on rest and stress imaging likely secondary to overlying breast attenuation artifact. CONCLUSION: 1. This is a low risk myocardial perfusion scan associated with 1-year cardiovascular event rate of less than 1%. 2. No scintigraphic evidence of myocardial ischemia with normal left ventricular size and systolic function. JOB# [id number] SAMSON/JAROD
--- NOTE | 2018-02-28 15:15 | Discharge Summary ---
Providers - Providers Date of Admission: 02/27/18 16:59 Date of discharge: 02/28/18 Attending physician: LOUISA LEAHY 02/27/18 Consult to Case Management [CONS] Routine Services Needed at Discharge: Home Health Services Notified:: porter sample case 02/27/18 17:00 Consult to Dietitian/Nutrition [CONS] Routine Physician Instructions: Reason For Exam: Reason for Consult: Diet education 02/28/18 09:46 Consult to Physician [CONS] Routine Comment: Consulting Provider: SOL ALMONTE Physician Instructions: Reason For Exam: syncope Primary care physician: NURSING HOME ADMINISTRATOR Hospitalization Condition: Fair Disposition: DC-01 TO HOME OR SELFCARE Core Measure Documentation - Palliative Care Palliative Care/ Comfort Measures: Not Applicable - Core Measures Any of the following diagnoses?: none Exam - Constitutional Vitals: Temp Pulse Resp BP Pulse Ox 98.2 F 91 H 18 127/88 100 02/28/18 07:49 02/28/18 12:54 02/28/18 07:50 02/28/18 12:54 02/28/18 07:49 Plan Activity: no driving until cleared by PCP Diet: low fat, low cholesterol, low salt Additional Instructions: 1.Follow up with PCP in 3-5 days. 2.Follow up with Dr. Valadez as scheduled. 3.Follow up with Neurology in 1 week. 4.repeat BMP in 1 week to be followed by PCP. 5.Hypothyroidism to be followed by PCP Follow up with: PRIMARY CAREMD [Primary Care Provider] - 3-5 Days Prescriptions: Levothyroxine Sodium [Levothyroxine] 137 mcg PO QAM #30 tablet
[2018-02-28 17:07] VITALS: BP 105/77
[2018-02-28] MEDS ORDERED: ELAVIL PO SCH (22:00)
[2018-02-28] MEDS ORDERED: PRAVACHOL PO SCH (22:00)
== END 2018-02-28 18:36 | disposition home or self-care (01) ==
LOC: ED 11:20 → INTOOBSV 16:59 → 4A 16:59
PROVIDERS: ADMIT Internal Medicine; ATTEND Internal Medicine
DX: R55 Syncope and collapse (principal); E03.9 Hypothyroidism, unspecified; E78.5 Hyperlipidemia, unspecified; G40.909 Epilepsy, unspecified, not intractable, without status epilepticus; G43.909 Migraine, unspecified, not intractable, without status migrainosus; K21.9 Gastro-esophageal reflux disease without esophagitis; M19.90 Unspecified osteoarthritis, unspecified site; F41.9 Anxiety disorder, unspecified; E11.22 Type 2 diabetes mellitus with diabetic chronic kidney disease; I12.9 Hypertensive chronic kidney disease with stage 1 through stage 4 chronic kidney disease, or unspecified chronic kidney disease; N18.9 Chronic kidney disease, unspecified; E86.0 Dehydration; E11.42 Type 2 diabetes mellitus with diabetic polyneuropathy; M62.838 Other muscle spasm; Z86.73 Personal history of transient ischemic attack (TIA), and cerebral infarction without residual deficits; Z82.49 Family history of ischemic heart disease and other diseases of the circulatory system; Z79.899 Other long term (current) drug therapy
CPT/HCPCS: 36415; 70450; 72125; 78452; 80053; 80307; 82550; 82553; 82962; 83036; 84439; 84443; 84484; 84703; 85025; 85610; 85730; 93005; 93010; 93017; 93306; 94640; 96361; 96372; 96374; 96375; 96376; 99285; A9502; G0378; G0480; J1644; J2270; J2405; J2785; J3010; J7030; 80320

== ENCOUNTER 2018-06-28 04:10 | Inpatient (IN) | payer MEDICARE ==
[2018-06-28] MEDS ORDERED: ASPIRIN PO ONE (04:17)
[2018-06-28 04:39] LABS: Hematocrit 37.9 % (30.3-42.9); Hemoglobin 11.9 gm/dl (10.1-14.3); Mean Corpuscular HGB Conc 31 % (30-34); Mean Corpuscular Hemoglobin 27 pg (28-32); Mean Corpuscular Volume 87 fl (79-97); Platelet Count 435 K/mm3 (140-440); Red Blood Count 4.36 M/mm3 (3.65-5.03); Red Cell Distribution Width 13.5 % (13.2-15.2)
[2018-06-28 05:07] LABS: BUN/Creatinine Ratio 11; Blood Urea Nitrogen 11 mg/dL (7-17); Calcium 9.6 mg/dL (8.4-10.2); Hemolysis Index 27
--- NOTE | 2018-06-28 06:20 | Emergency Department Report ---
ED Chest Pain HPI - General Chief Complaint: Chest Pain Stated Complaint: CHEST PAIN Time Seen by Provider: 06/28/18 06:05 Source: patient Mode of arrival: Ambulatory Limitations: No Limitations - History of Present Illness Initial Comments: This is a 43-year-old female who is morbidly obese and has a history of hypertension and hypothyroidism. She states that her heart rate is a left fast. He states that she has a "heart scan" scheduled with her activity therapy teacher Dr. Wilson. She does have a history of dyslipidemia. She presents to the emergency department for evaluation of chest pain and tingling involving her entire left side of her body. She speaks with a slow somewhat lethargic voice. She states she may be on some new medicine. Her medicines include Klonopin, tramadol, Latuda,duloxetine and Topamax. She is taking [place] and thought to have lupus. She has had a previous workup for syncope as indicated: History of Present Illness Consult date: 02/28/18 Consult reason: syncope History of present illness: 42 year old female with multiple medical problems presenting with syncope. She is a very poor historian. Chart review reveals that patient passed out while getting in her car. Per family member, patient has recurrent episode of syncope - almost daily. Echo this admission is showing normal LVEF, Lexiscan MPI no ischemia and tele showing no arrhythmias. 12 lead ECG showing SR, borlderline QT interval, non-specific ST-T wave abnormalities. Patient states that last night she was taking a shower when she experienced tingling of the entire left side of her body. She developed substernal chest pressure which radiated to the left arm and then the right side of the back and the right leg. She did not vomit. She did not report acute shortness of breath cough or hemoptysis. She does not report current or recent leg pain or swelling. She denies fever or chills. MD Complaint: chest pain -: Gradual, hour(s) Onset: during rest Pain Location: substernal Pain Radiation: LUE Severity: moderate Quality: pressure Consistency: intermittent Improves With: nothing Worsens With: nothing re: denies: nausea, vomting, diaphoresis, dyspnea, sense of impending doom Other Symptoms: denies: cough, fever, syncope Treatments Prior to Arrival: none - Related Data Home Medications Medication Instructions Recorded Confirmed Last Taken Albuterol Sulfate [Ventolin HFA] 2 puff INHALATION PRN PRN 04/10/14 02/27/18 09:30 Fluticasone/Salmeterol [Advair 1 inhalation INHALATION BID PRN 04/10/1408/13/14 10:30 Diskus 250-50 mcg] Furosemide 2 tab PO DAILY 04/10/14 02/27/18 03/23/15 08:00 Simvastatin 1 tab PO DAILY 04/10/14 02/27/18 03/23/15 08:00 SUMAtriptan SUCCINATE [Imitrex] 100 mg PO PRN PRN 03/10/15 02/27/18 03/23/15 08: 00 Ferrous Sulfate [Feosol 325 MG tab] 325 mg PO QDAY 08/10/16 02/27/18 Unknown Riboflavin (Vitamin B2) 400 mg PO QDAY 08/10/16 02/27/18 Unknown [Riboflavin] Amitriptyline [Elavil] 100 mg PO QHS 12/10/17 02/27/18 Unknown Chlorzoxazone 500 mg PO DAILY 12/10/17 02/27/18 Unknown Dexlansoprazole [Dexilant] 60 mg PO QDAY 12/10/17 02/27/18 Unknown Doxepin HCl [Silenor] 3 mg PO QHS 12/10/17 02/27/18 Unknown Duloxetine HCl [DULoxetine] 60 mg PO DAILY 12/10/17 02/27/18 Unknown Hydroxychloroquine [Plaquenil] 200 mg PO QDAY 12/10/17 02/27/18 Unknown Losartan [Cozaar] 100 mg PO QDAY 12/10/17 02/27/18 Unknown Lubiprostone (Nf) [Amitiza (Nf)] 24 mcg PO DAILY 12/10/17 02/27/18 Unknown Lurasidone HCl [Latuda] 120 mg PO QDAY 12/10/17 02/27/18 Unknown Pregabalin [Lyrica] 150 mg PO DAILY 12/10/17 02/27/18 Unknown Promethazine HCl [Promethazine TAB] 25 mg PO Q6H PRN 12/10/17 02/27/18 Unknown Tizanidine HCl [tiZANidine] 2 mg PO DAILY 12/10/17 02/27/18 Unknown clonazePAM [Klonopin] 0.5 mg PO DAILY 12/10/17 02/27/18 Unknown traMADol [Ultram 50 MG tab] 50 mg PO BID 12/10/17 02/27/18 Unknown Previous Rx's Medication Instructions Recorded Last Taken Type Topiramate [Topamax] 200 mg PO DAILY #14 tablet 08/12/16 Unknown Rx Acetaminophen [Tylenol Extra 1,000 mg PO QID PRN #60 tablet 11/18/17 Unknown Rx Strength] Cyclobenzaprine [Flexeril 10 MG 10 mg PO TID PRN #30 tablet 11/18/17 Unknown Rx TAB] Menthol/Camphor [[place] 1 applicatio TP BID PRN #1 tube 11/18/17 Unknown Rx Ointment] Levothyroxine Sodium 137 mcg PO QAM #30 tablet 02/28/18 Unknown Rx [Levothyroxine] Allergies Allergy/AdvReac Type Severity Reaction Status Date / Time aspirin Allergy Hives Verified 01/20/18 07:51 butorphanol tartrate Allergy Seizure Verified 01/20/18 07:51 [From Stadol] latex Allergy Hives Verified 01/20/18 07:51 NSAIDS (Non-Steroidal Allergy Hives Verified 01/20/18 07:51 Anti-Inflamma Heart Score - HEART Score History: Moderately suspicious EKG: Non-specific Age: < 45 Risk factors: > 3 risk factors or hx of atherosclerotic disease Troponin: < normal limit HEART Score: 4 - Critical Actions Critical Actions: 4-6 pts:12-16.6% risk of adverse cardiac event. Should be admitted ED Review of Systems ROS: Stated complaint: CHEST PAIN Other details as noted in HPI Constitutional: denies: chills, fever Eyes: denies: eye pain, eye discharge, vision change ENT: denies: ear pain, throat pain Respiratory: denies: cough, shortness of breath, wheezing Cardiovascular: chest pain. denies: palpitations Endocrine: no symptoms reported Gastrointestinal: denies: abdominal pain, nausea, diarrhea Genitourinary: denies: urgency, dysuria, discharge Musculoskeletal: denies: back pain, joint swelling, arthralgia Skin: denies: rash, lesions Neurological: paresthesias. denies: headache, weakness, numbness, confusion, abnormal gait, vertigo Psychiatric: denies: anxiety, depression Hematological/Lymphatic: denies: easy bleeding, easy bruising ED Past Medical Hx - Past Medical History Previous Medical History?: Yes Hx Hypertension: Yes Hx CVA: Yes Hx Diabetes: Yes Hx GERD: Yes Hx Renal Disease: Yes Hx Arthritis: Yes Hx Headaches / Migraines: Yes (MIGRAINES) Hx Seizures: Yes Hx Psychiatric Treatment: Yes Hx Asthma: Yes Additional medical history: lupus. high cholesterol. bipolar. depression. anxiety PANIC ATTACK. Hypothyroidism - Surgical History Past Surgical History?: Yes Hx Breast Surgery: Yes (right lumpectomy) Additional Surgical History: "rectal repair" after vaginal delivery. lump removed from right arm - Social History Smoking Status: Never Smoker Substance Use Type: None - Medications Home Medications: Home Medications Medication Instructions Recorded Confirmed Last Taken Type Albuterol Sulfate [Ventolin HFA] 2 puff INHALATION PRN PRN 04/10/14 02/27/18 09:30 History Fluticasone/Salmeterol [Advair 1 inhalation INHALATION BID PRN 04/10/1408/13/14 10:30 History Diskus 250-50 mcg] Furosemide 2 tab PO DAILY 04/10/14 02/27/18 03/23/15 08:00 History Simvastatin 1 tab PO DAILY 04/10/14 02/27/18 03/23/15 08:00 History SUMAtriptan SUCCINATE [Imitrex] 100 mg PO PRN PRN 03/10/15 02/27/18 03/23/15 08: 00 History Ferrous Sulfate [Feosol 325 MG tab] 325 mg PO QDAY 08/10/16 02/27/18 Unknown History Riboflavin (Vitamin B2) 400 mg PO QDAY 08/10/16 02/27/18 Unknown History [Riboflavin] Topiramate [Topamax] 200 mg PO DAILY #14 tablet 08/12/16 02/27/18 Unknown Rx Acetaminophen [Tylenol Extra 1,000 mg PO QID PRN #60 tablet 11/18/17 02/27/18 Unknown Rx Strength] Cyclobenzaprine [Flexeril 10 MG 10 mg PO TID PRN #30 tablet 11/18/17 02/27/18 Unknown Rx TAB] Menthol/Camphor [[place] 1 applicatio TP BID PRN #1 tube 11/18/17 02/27/18 Unknown Rx Ointment] Amitriptyline [Elavil] 100 mg PO QHS 12/10/17 02/27/18 Unknown History Chlorzoxazone 500 mg PO DAILY 12/10/17 02/27/18 Unknown History Dexlansoprazole [Dexilant] 60 mg PO QDAY 12/10/17 02/27/18 Unknown History Doxepin HCl [Silenor] 3 mg PO QHS 12/10/17 02/27/18 Unknown History Duloxetine HCl [DULoxetine] 60 mg PO DAILY 12/10/17 02/27/18 Unknown History Hydroxychloroquine [Plaquenil] 200 mg PO QDAY 12/10/17 02/27/18 Unknown History Losartan [Cozaar] 100 mg PO QDAY 12/10/17 02/27/18 Unknown History Lubiprostone (Nf) [Amitiza (Nf)] 24 mcg PO DAILY 12/10/17 02/27/18 Unknown History Lurasidone HCl [Latuda] 120 mg PO QDAY 12/10/17 02/27/18 Unknown History Pregabalin [Lyrica] 150 mg PO DAILY 12/10/17 02/27/18 Unknown History Promethazine HCl [Promethazine TAB] 25 mg PO Q6H PRN 12/10/17 02/27/18 Unknown History Tizanidine HCl [tiZANidine] 2 mg PO DAILY 12/10/17 02/27/18 Unknown History clonazePAM [Klonopin] 0.5 mg PO DAILY 12/10/17 02/27/18 Unknown History traMADol [Ultram 50 MG tab] 50 mg PO BID 12/10/17 02/27/18 Unknown History Levothyroxine Sodium 137 mcg PO QAM #30 tablet 02/28/18 Unknown Rx [Levothyroxine] ED Physical Exam - General Limitations: Physical Limitation General appearance: alert, in no apparent distress, obese (morbidly) - Head Head exam: Present: atraumatic, normocephalic - Eye Eye exam: Present: normal appearance, PERRL, EOMI. Absent: scleral icterus - ENT ENT exam: Present: mucous membranes moist - Neck Neck exam: Present: normal inspection. Absent: tenderness, meningismus - Respiratory Respiratory exam: Present: normal lung sounds bilaterally. Absent: respiratory distress - Cardiovascular Cardiovascular Exam: Present: regular rate, normal rhythm. Absent: systolic murmur, diastolic murmur, rubs, gallop - GI/Abdominal GI/Abdominal exam: Present: soft, normal bowel sounds. Absent: distended, tenderness, guarding, rebound, rigid - Extremities Exam Extremities exam: Present: normal inspection. Absent: pedal edema, joint swelling, calf tenderness - Back Exam Back exam: Present: normal inspection - Neurological Exam Neurological exam: Present: alert, oriented X3, CN II-XII intact. Absent: motor sensory deficit - Psychiatric Psychiatric exam: Present: normal mood, flat affect - Skin Skin exam: Present: warm, dry, intact, normal color. Absent: rash ED Course Vital Signs 06/28/18 06/28/18 06/28/18 04:13 06:58 07:00 Temperature 98.3 F Pulse Rate 105 H 87 Respiratory 18 19 Rate Blood Pressure 135/95 Blood Pressure [Left] O2 Sat by Pulse 98 100 99 Oximetry 06/28/18 06/28/18 07:02 07:16 Temperature 98.4 F Pulse Rate 85 83 Respiratory 20 18 Rate Blood Pressure 116/71 Blood Pressure 116/71 [Left] O2 Sat by Pulse 99 99 Oximetry - Reevaluation(s) Reevaluation #1: Patient fully ambulatory about the emergency department. She is in no distress. I will make arrangements for further inpatient evaluation and consultation as per hospitalist staff. 06/28/18 07:29 ED Medical Decision Making - Lab Data Result diagrams: 06/28/18 04:25 06/28/18 04:25 Laboratory Results - last 24 hr 06/28/18 06/28/18 04:25 04:25 WBC 13.6 H RBC 4.36 Hgb 11.9 Hct 37.9 MCV 87 MCH 27 L MCHC 31 RDW 13.5 Plt Count 435 Lymph % (Auto) Search Strategist Lymph # Search Strategist Seg Neutrophils % Search Strategist Sodium 141 Potassium 4.6 Chloride 106.8 Carbon Dioxide 19 L Anion Gap 20 BUN 11 Creatinine 1.0 Estimated GFR > 60 BUN/Creatinine Ratio 11 Glucose 138 H Calcium 9.6 Troponin T < 0.010 - EKG Data -: EKG Interpreted by Me EKG shows normal: sinus rhythm, axis, intervals, QRS complexes, ST-T waves Rate: tachycardia - EKG Data Interpretation: other (motion artifact some nonspecific changes) - Radiology Data interpreted by me: Diaphragmatic excursion probably related to habitus. No acute findings Critical care attestation.: If time is entered above; I have spent that time in minutes in the direct care of this critically ill patient, excluding procedure time. ED Disposition Clinical Impression: Diabetes mellitus type 2 in obese Chest pain Qualifiers: Chest pain type: unspecified Qualified Code(s): R07.9 - Chest pain, unspecified Bipolar disorder Qualifiers: Active/Remission status: remission status unspecified Qualified Code(s): F31.9 - Bipolar disorder, unspecified Disposition: 09 OP ADMIT IP TO THIS HOSP Is pt being admited?: Yes Does the pt Need Aspirin: Yes Condition: Stable Instructions: Chest Pain (ED), Diabetes Mellitus Type 2 in Adults (ED) Referrals: PRIMARY CARE, [Primary Care Provider] - 3-5 Days Time of Disposition: 07:30
--- NOTE | 2018-06-28 06:41 | XRay Report ---
FINAL REPORT PROCEDURE: XR CHEST 1V AP TECHNIQUE: Chest radiograph anteroposterior view. CPT 98910 HISTORY: cp COMPARISON: No prior studies are available for comparison. FINDINGS: Heart: Normal. Mediastinum/Vessels: Normal. Lungs/Pleural space: Lungs are clear. There are no infiltrates, effusions or pneumothoraces.. Bony thorax: No acute osseous abnormality. Life support devices: None. IMPRESSION: No acute cardiopulmonary abnormality.
[2018-06-28 06:46] LABS: INR 0.95 (0.87-1.13)
[2018-06-28 06:47] LABS: Partial Thromboplastin Time 27.9 Sec. (24.2-36.6)
[2018-06-28 06:51] LABS: Band Neutrophils # (Manual) 0.5 K/mm3; Basophils % (Manual) 0 % (0.0-1.8); Eosinophils % (Manual) 0 % (0.0-4.3); Total Cells Counted 100
[2018-06-28 06:52] LABS: Anisocytosis 1+
[2018-06-28 06:54] LABS: Alanine Aminotransferase 12 units/L (7-56); Albumin 3.6 g/dL (3.9-5)
[2018-06-28 07:04] LABS: Bilirubin,Direct < 0.2 mg/dL (0-0.2)
[2018-06-28 07:53] LABS: Bacteria,Urine 2+ /HPF (Negative); Bilirubin,Urine NEG (Negative); Blood,Urine MOD (Negative); Color,Urine Yellow (Yellow); Mucus,Urine 1+ /HPF; Protein,Urine <15 mg/dL mg/dL (Negative); Urobilinogen,Urine < 2.0 mg/dL (<2.0)
[2018-06-28 08:01] LABS: Amphetamine Screen,Urine PRESUMPTIVE NEGATIVE; Benzodiazepines Screen,Urine PRESUMPTIVE NEGATIVE; Cannabinoid Screen,Urine PRESUMPTIVE NEGATIVE; Cocaine Screen,Urine PRESUMPTIVE NEGATIVE; Methadone Screen,Urine PRESUMPTIVE NEGATIVE; Opiate Screen,Urine PRESUMPTIVE NEGATIVE
[2018-06-28 08:05] LABS: HCG Qualitative,Urine Negative (Negative)
[2018-06-28] MEDS ORDERED: NORCO 5/325 ONE (08:48)
[2018-06-28] MEDS: NORCO 5/325 PO PRN ×3 (09:03→23:09)
[2018-06-28] MEDS ORDERED: FLUTICASONE INHALATION PRN (15:33)
[2018-06-28] MEDS ORDERED: NON-FORMULARY (Tramadol 50 MG) PO PRN (15:33)
[2018-06-28] MEDS ORDERED: NON-FORMULARY (Menthol/Camphor [Tiger Balm Ointment] 1 APPLICATIO) TP PRN (15:33)
[2018-06-28] MEDS ORDERED: IMITREX PO PRN (15:33)
[2018-06-28] MEDS ORDERED: TYLENOL PO PRN (15:33)
[2018-06-28] MEDS ORDERED: LINACLOTIDE 290 MG PO PRN (15:33)
[2018-06-28] MEDS ORDERED: SALMETEROL INHALATION PRN (15:33)
[2018-06-28] MEDS ORDERED: CITRACAL D 315MG-250 UNITS PO SCH ×2 (16:00→16:39)
[2018-06-28] MEDS: KEFLEX PO SCH ×2 (16:01→23:11)
--- NOTE | 2018-06-28 16:27 | History and Physical Report ---
History of Present Illness Date of admission: 06/28/18 07:41 Chief complaint: left shoulder pain History of present illness: 43-year-old female who is morbidly obese and has a history of hypertension and hypothyroidism. -SHe pw Left shoulder pain x 1 day, it radiates to her left arm, chest and neck -pain is dull, 5/10, assoc with decreased ROM of left UE -states that she has been having ROBLES, frontal with photophobia cw her migraine HAs -she had recent workup for syncope and CP which were negative Past Medical History: diabetes, hypertension, hyperlipidemia, hypothyroidism, migraines, seizures Past Surgical History: Other (rectal surgery) Social history: lives with family, alcohol abuse (occasional), full code. denies: smoking, IV drug use Family history: hypertension Medications and Allergies Allergies Allergy/AdvReac Type Severity Reaction Status Date / Time aspirin Allergy Hives Verified 01/20/18 07:51 butorphanol tartrate Allergy Seizure Verified 01/20/18 07:51 [From Stadol] latex Allergy Hives Verified 01/20/18 07:51 NSAIDS (Non-Steroidal Allergy Hives Verified 01/20/18 07:51 Anti-Inflamma Home Medications Medication Instructions Recorded Confirmed Last Taken Type Fluticasone/Salmeterol [Advair 2 puff INHALATION PRN PRN 04/10/14 06/28/1806/25 08:00 History Diskus 250-50 mcg] 2 puffs Simvastatin 1 tab PO DAILY 04/10/14 06/28/18 06/27/18 21:00 History SUMAtriptan SUCCINATE [Imitrex] 100 mg PO Q6H PRN 03/10/15 06/28/18 06/18/18 17: 00 History 100mg Ferrous Sulfate [Feosol 325 MG tab] 325 mg PO QDAY 08/10/16 06/28/18 06/27/18 21 :00 History 325mg Riboflavin (Vitamin B2) 400 mg PO QDAY 08/10/16 06/28/18 06/27/18 21:00 History [Riboflavin] Topiramate [Topamax] 200 mg PO DAILY #14 tablet 08/12/16 06/28/18 06/27/18 21: 00 Rx 200mg Acetaminophen [Tylenol Extra 1,000 mg PO QID PRN #60 tablet 11/18/17 06/28/18/18 18:00 Rx Strength] Amitriptyline [Elavil] 100 mg PO QHS 12/10/17 06/28/18 06/27/18 21:00 History Chlorzoxazone 500 mg PO DAILY 12/10/17 06/28/18 06/27/18 21:00 History 500mg Dexlansoprazole [Dexilant] 60 mg PO QDAY 12/10/17 06/28/18 06/27/18 21:00 History 60mg Duloxetine HCl [DULoxetine] 60 mg PO DAILY 12/10/17 06/28/18 06/27/18 21:00 History 60mg Losartan [Cozaar] 100 mg PO QDAY 12/10/17 06/28/18 06/27/18 21:00 History Lubiprostone (Nf) [Amitiza (Nf)] 24 mcg PO DAILY 12/10/17 06/28/18 06/27/18 21: 00 History Lurasidone HCl [Latuda] 120 mg PO QDAY 12/10/17 06/28/18 06/27/18 21:00 History Pregabalin [Lyrica] 150 mg PO DAILY 12/10/17 06/28/18 06/27/18 21:00 History 150mg Tizanidine HCl [tiZANidine] 2 mg PO DAILY 12/10/17 06/28/18 06/27/18 21:00 History clonazePAM [Klonopin] 0.5 mg PO DAILY 12/10/17 06/28/18 06/27/18 08:00 History Levothyroxine Sodium 137 mcg PO QAM #30 tablet 02/28/18 06/28/18 06/28/18 04:00 Rx [Levothyroxine] Hydroxychloroquine 200 mg PO DAILY 06/28/18 06/28/18 06/27/18 21:00 History 200mg Linaclotide (Nf) [Linzess (Nf)] 290 mg PO Q6HR PRN 06/28/18 06/28/18 06/20/18 08 :00 History 290mg Menthol/Camphor [[place] 1 applicatio TP Q6HR PRN 06/28/18 06/28/18 06/27/18 21:00 History Ointment] Metoprolol [Lopressor TAB] 50 mg PO DAILY 06/28/18 06/28/18 06/27/18 21:00 History traMADol 50 mg PO Q6HR PRN 06/28/18 06/28/18 06/27/18 21:00 History 50mg Active Meds: Active Medications Acetaminophen (Tylenol) 1,000 mg PO QID PRN PRN Reason: Pain Acetaminophen/Hydrocodone Bitart ([place] 5/325) 1 each PO Q6H PRN PRN Reason: Pain, Moderate (4-6) Last Admin: 06/28/18 15:08 Dose: 1 each Calcium Citrate (Citracal D 315mg-250 Units) 1 each PO 1XW [facility] Cephalexin (Keflex) 500 mg PO Q12HR [facility]AVEN Stop: 07/01/18 15:59 Last Admin: 06/28/18 16:01 Dose: 500 mg Ferrous Sulfate (Feosol) 325 mg PO QDAY [facility] Metoprolol Tartrate (Lopressor) 50 mg PO DAILY [facility] Miscellaneous Medication (Amitriptyline [Elavil]) 100 mg PO QHS [facility] Miscellaneous Medication (Chlorzoxazone [Chlorzoxazone]) 500 mg PO DAILY [facility] Miscellaneous Medication (Dexlansoprazole [Dexilant]) 60 mg PO QDAY [facility] Miscellaneous Medication (Duloxetine Hcl [Duloxetine]) 60 mg PO DAILY [facility] Miscellaneous Medication (Fluticasone/Salmeterol [Advair Diskus 250-50 Mcg]) 2 puff INHALATION PRN PRN PRN Reason: Allergy Symptoms Miscellaneous Medication (Hydroxychloroquine) 200 mg PO DAILY [facility] Miscellaneous Medication (Levothyroxine Sodium [Levothyroxine]) 137 mcg PO QAM [facility] Miscellaneous Medication (Linaclotide (Nf)) 290 mg PO PRN PRN PRN Reason: Constipation Miscellaneous Medication (Losartan [Cozaar]) 100 mg PO QDAY [facility] Miscellaneous Medication (Lubiprostone (Nf)) 24 mcg PO DAILY [facility] Miscellaneous Medication (Lurasidone Hcl [Latuda]) 120 mg PO QDAY [facility] Miscellaneous Medication (Menthol/Camphor [Kenv[place] Ointment]) 1 applicatio TP PRN PRN PRN Reason: Pain Miscellaneous Medication (Riboflavin (Vitamin B2) [Riboflavin]) 400 mg PO QDAY [facility] Miscellaneous Medication (Simvastatin [Simvastatin]) 1 tab PO DAILY [facility] Miscellaneous Medication (Tizanidine Hcl [Tizanidine]) 2 mg PO DAILY [facility] Miscellaneous Medication (Tramadol) 50 mg PO PRN PRN PRN Reason: Pain, Moderate (4-6) Sumatriptan Succinate (Imitrex) 100 mg PO PRN PRN PRN Reason: Headache Topiramate (Topamax) 200 mg PO DAILY [facility] Review of Systems All systems: negative Constitutional: no fever Ears, nose, mouth and throat: no deferred Cardiovascular: no lightheadedness Respiratory: no cough Gastrointestinal: no nausea Musculoskeletal: other (left shoulder pain and decreased ROM) Integumentary: no rash Neurological: no head injury Psychiatric: no anxiety Endocrine: no cold intolerance Exam - Constitutional Vitals: Temp Pulse Resp BP Pulse Ox 97.9 F 88 16 152/103 98 06/28/18 12:11 06/28/18 16:05 06/28/18 15:08 06/28/18 12:11 06/28/18 12:12 General appearance: Present: no acute distress, well-nourished - EENT Eyes: Present: PERRL ENT: hearing intact, clear oral mucosa - Neck Neck: Present: supple, normal ROM - Respiratory Respiratory effort: normal Respiratory: bilateral: CTA - Cardiovascular Heart Sounds: Present: S1 & S2. Absent: rub, click - Extremities Extremities: pulses symmetrical, No edema Extremity abnormal: other (Decreased ROM of left shoulder, pain on manipulation) Peripheral Pulses: within normal limits - Abdominal General gastrointestinal: Present: soft, non-tender, non-distended, normal bowel sounds Female genitourinary: Present: normal - Integumentary Integumentary: Present: clear, warm, dry - Musculoskeletal Musculoskeletal: gait normal, strength equal bilaterally - Psychiatric Psychiatric: appropriate mood/affect, intact judgment & insight - Neurologic Neurologic: CNII-XII intact, moves all extremities Results - Labs CBC & Chem 7: 06/28/18 04:25 06/28/18 04:25 Labs: Laboratory Last Values WBC 13.6 K/mm3 (4.5-11.0) H 06/28/18 04:25 RBC 4.36 M/mm3 (3.65-5.03) 06/28/18 04:25 Hgb 11.9 gm/dl (10.1-14.3) 06/28/18 04:25 Hct 37.9 % (30.3-42.9) 06/28/18 04:25 MCV 87 fl (79-97) 06/28/18 04:25 MCH 27 pg (28-32) L 06/28/18 04:25 MCHC 31 % (30-34) 06/28/18 04:25 RDW 13.5 % (13.2-15.2) 06/28/18 04:25 Plt Count 435 K/mm3 (140-440) 06/28/18 04:25 Lymph % (Auto) Adjusto Writer Operator 06/28/18 04:25 Lymph # Adjusto Writer Operator 06/28/18 04:25 Add Manual Diff Complete 06/28/18 04:25 Total Counted 100 06/28/18 04:25 Seg Neutrophils % Adjusto Writer Operator 06/28/18 04:25 Seg Neuts % (Manual) 43.0 % (40.0-70.0) 06/28/18 04:25 Band Neutrophils % 4.0 % 06/28/18 04:25 Lymphocytes % (Manual) 39.0 % (13.4-35.0) H 06/28/18 04:25 Reactive Lymphs % (Man) 0 % 06/28/18 04:25 Monocytes % (Manual) 7.0 % (0.0-7.3) 06/28/18 04:25 Eosinophils % (Manual) 0 % (0.0-4.3) 06/28/18 04:25 Basophils % (Manual) 0 % (0.0-1.8) 06/28/18 04:25 Metamyelocytes % 7.0 % 06/28/18 04:25 Myelocytes % 0 % 06/28/18 04:25 Promyelocytes % 0 % 06/28/18 04:25 Blast Cells % 0 % 06/28/18 04:25 Nucleated RBC % Not Reportable 06/28/18 04:25 Seg Neutrophils # Man 5.8 K/mm3 (1.8-7.7) 06/28/18 04:25 Band Neutrophils # 0.5 K/mm3 06/28/18 04:25 Lymphocytes # (Manual) 5.3 K/mm3 (1.2-5.4) 06/28/18 04:25 Abs React Lymphs (Man) 0.0 K/mm3 06/28/18 04:25 Monocytes # (Manual) 1.0 K/mm3 (0.0-0.8) H 06/28/18 04:25 Eosinophils # (Manual) 0.0 K/mm3 (0.0-0.4) 06/28/18 04:25 Basophils # (Manual) 0.0 K/mm3 (0.0-0.1) 06/28/18 04:25 Metamyelocytes # 1.0 K/mm3 06/28/18 04:25 Myelocytes # 0.0 K/mm3 06/28/18 04:25 Promyelocytes # 0.0 K/mm3 06/28/18 04:25 Blast Cells # 0.0 K/mm3 06/28/18 04:25 WBC Morphology Not Reportable 06/28/18 04:25 Hypersegmented Neuts Not Reportable 06/28/18 04:25 Hyposegmented Neuts Not Reportable 06/28/18 04:25 Hypogranular Neuts Not Reportable 06/28/18 04:25 Smudge Cells Not Reportable 06/28/18 04:25 Toxic Granulation Not Reportable 06/28/18 04:25 Toxic Vacuolation Not Reportable 06/28/18 04:25 Dohle Bodies Not Reportable 06/28/18 04:25 Pelger-Huet Anomaly Not Reportable 06/28/18 04:25 Nay Rods Not Reportable 06/28/18 04:25 Platelet Estimate Appears normal 06/28/18 04:25 Clumped Platelets Not Reportable 06/28/18 04:25 Plt Clumps, EDTA Not Reportable 06/28/18 04:25 Large Platelets Not Reportable 06/28/18 04:25 Giant Platelets Not Reportable 06/28/18 04:25 Platelet Satelliting Not Reportable 06/28/18 04:25 Plt Morphology Comment Not Reportable 06/28/18 04:25 RBC Morphology Not Reportable 06/28/18 04:25 Dimorphic RBCs Not Reportable 06/28/18 04:25 Polychromasia Not Reportable 06/28/18 04:25 Hypochromasia Not Reportable 06/28/18 04:25 Poikilocytosis Not Reportable 06/28/18 04:25 Anisocytosis 1+ 06/28/18 04:25 Microcytosis Not Reportable 06/28/18 04:25 Macrocytosis Not Reportable 06/28/18 04:25 Spherocytes Not Reportable 06/28/18 04:25 Pappenheimer Bodies Not Reportable 06/28/18 04:25 Sickle Cells Not Reportable 06/28/18 04:25 Target Cells Not Reportable 06/28/18 04:25 Tear Drop Cells Not Reportable 06/28/18 04:25 Ovalocytes Not Reportable 06/28/18 04:25 Helmet Cells Not Reportable 06/28/18 04:25 Villatoro-Exline Bodies Not Reportable 06/28/18 04:25 [place] Rings Not Reportable 06/28/18 04:25 Renea Cells Not Reportable 06/28/18 04:25 Bite Cells Not Reportable 06/28/18 04:25 Crenated Cell Not Reportable 06/28/18 04:25 Elliptocytes Not Reportable 06/28/18 04:25 Acanthocytes (Spur) Not Reportable 06/28/18 04:25 Rouleaux Not Reportable 06/28/18 04:25 Hemoglobin C Crystals Not Reportable 06/28/18 04:25 Schistocytes Not Reportable 06/28/18 04:25 Malaria parasites Not Reportable 06/28/18 04:25 Yash Bodies Not Reportable 06/28/18 04:25 Hem Pathologist Commnt No 06/28/18 04:25 PT 13.2 Sec. (12.2-14.9) 06/28/18 06:20 INR 0.95 (0.87-1.13) 06/28/18 06:20 APTT 27.9 Sec. (24.2-36.6) 06/28/18 06:20 D-Dimer 239.38 ng/mlDDU (0-234) H 06/28/18 06:20 Sodium 141 mmol/L (137-145) 06/28/18 04:25 Potassium 4.6 mmol/L (3.6-5.0) 06/28/18 04:25 Chloride 106.8 mmol/L (98-107) 06/28/18 04:25 Carbon Dioxide 19 mmol/L (22-30) L 06/28/18 04:25 Anion Gap 20 mmol/L 06/28/18 04:25 BUN 11 mg/dL (7-17) 06/28/18 04:25 Creatinine 1.0 mg/dL (0.7-1.2) 06/28/18 04:25 Estimated GFR > 60 ml/min 06/28/18 04:25 BUN/Creatinine Ratio 11 % 06/28/18 04:25 Glucose 138 mg/dL (65-100) H 06/28/18 04:25 Calcium 9.6 mg/dL (8.4-10.2) 06/28/18 04:25 Magnesium 2.00 mg/dL (1.7-2.3) 06/28/18 06:20 Total Bilirubin < 0.20 mg/dL (0.1-1.2) 06/28/18 06:20 Direct Bilirubin < 0.2 mg/dL (0-0.2) 06/28/18 06:20 Indirect Bilirubin 0.0 mg/dL 06/28/18 06:20 AST 17 units/L (5-40) 06/28/18 06:20 ALT 12 units/L (7-56) 06/28/18 06:20 Alkaline Phosphatase 93 units/L (35-129) 06/28/18 06:20 Troponin T < 0.010 ng/mL (0.00-0.029) 06/28/18 10:34 NT-Pro-B Natriuret Pep 34.11 pg/mL (0-450) 06/28/18 06:20 Total Protein 7.5 g/dL (6.3-8.2) 06/28/18 06:20 Albumin 3.6 g/dL (3.9-5) L 06/28/18 06:20 Albumin/Globulin Ratio 0.9 % 06/28/18 06:20 Urine Color Yellow (Yellow) 06/28/18 Unknown Urine Turbidity Slightly-cloudy (Clear) 06/28/18 Unknown Urine pH 5.0 (5.0-7.0) 06/28/18 Unknown Ur Specific [place] 1.027 (1.003-1.030) 06/28/18 Unknown Urine Protein <15 mg/dl mg/dL (Negative) 06/28/18 Unknown Urine Glucose (UA) Neg mg/dL (Negative) 06/28/18 Unknown Urine Ketones Neg mg/dL (Negative) 06/28/18 Unknown Urine Blood Mod (Negative) 06/28/18 Unknown Urine Nitrite Neg (Negative) 06/28/18 Unknown Urine Bilirubin Neg (Negative) 06/28/18 Unknown Urine Urobilinogen < 2.0 mg/dL (<2.0) 06/28/18 Unknown Ur Leukocyte Esterase Mod (Negative) 06/28/18 Unknown Urine WBC (Auto) 15.0 /HPF (0.0-6.0) H 06/28/18 Unknown Urine RBC (Auto) 5.0 /HPF (0.0-6.0) 06/28/18 Unknown U Epithel Cells (Auto) 5.0 /HPF (0-13.0) 06/28/18 Unknown Urine Bacteria (Auto) 2+ /HPF (Negative) 06/28/18 Unknown Urine Mucus 1+ /HPF 06/28/18 Unknown Urine HCG, Qual Negative (Negative) 06/28/18 Unknown Urine Opiates Screen Presumptive negative 06/28/18 Unknown Urine Methadone Screen Presumptive negative 06/28/18 Unknown Ur Barbiturates Screen Presumptive negative 06/28/18 Unknown Ur Phencyclidine Scrn Presumptive negative 06/28/18 Unknown Ur Amphetamines Screen Presumptive negative 06/28/18 Unknown U Benzodiazepines Scrn Presumptive negative 06/28/18 Unknown Urine Cocaine Screen Presumptive negative 06/28/18 Unknown U Marijuana (THC) Screen Presumptive negative 06/28/18 Unknown Drugs of Abuse Note Disclamer 06/28/18 Unknown Assessment and Plan Assessment and plan: 43F who pw Left shoulder pain Left shoulder pain with decreased ROM obtain xray of shoulder, pain meds prn Upon exam, she does not have chest pain chest pain ruled out had recent negative stress test, d dimer negative Migraine ROBLES -sumatriptan prn
[2018-06-28] MEDS ORDERED: ULTRAM PO PRN (16:52)
--- NOTE | 2018-06-28 16:53 | XRay Report ---
FINAL REPORT PROCEDURE: Two-view left shoulder series TECHNIQUE: AP view of the left shoulder was obtained with the arm in external rotation also a scapular Y-view was obtained. HISTORY: left shoulder pain COMPARISON: No prior studies are available for comparison. FINDINGS: No fracture or dislocation visualized. Joint spaces are well maintained. Bone density appears normal. On the AP view there is a round density seen lateral to the inferior aspect of the left shoulder. This measures approximately 11 millimeters. This is a finding of uncertain significance. This is not confirmed on the scapular Y-view. IMPRESSION: Negative exam.
[2018-06-28] MEDS ORDERED: AMITRIPTYLINE 100 MG PO SCH (22:00)
[2018-06-28] MEDS ORDERED: ELAVIL PO SCH (22:00)
[2018-06-28] MEDS: ELAVIL PO SCH (23:11)
[2018-06-28] MEDS: PRAVACHOL PO SCH (23:11)
[2018-06-29] MEDS: SYNTHROID PO SCH ×2 (06:22)
[2018-06-29] MEDS: NORCO 5/325 PO PRN ×2 (08:24→21:49)
[2018-06-29] MEDS ORDERED: SIMVASTATIN PO SCH (10:00)
[2018-06-29] MEDS ORDERED: NON-FORMULARY (Duloxetine Hcl [Duloxetine] 60 MG) PO SCH (10:00)
[2018-06-29] MEDS ORDERED: NON-FORMULARY (Levothyroxine Sodium [Levothyroxine] 137 MCG) PO SCH (10:00)
[2018-06-29] MEDS ORDERED: NON-FORMULARY (Lubiprostone (Nf) 24 MCG) PO SCH (10:00)
[2018-06-29] MEDS ORDERED: NON-FORMULARY (Hydroxychloroquine 200 MG) PO SCH (10:00)
[2018-06-29] MEDS ORDERED: CHLORZOXAZONE 500 MG PO SCH (10:00)
[2018-06-29] MEDS ORDERED: NON-FORMULARY (Dexlansoprazole [Dexilant] 60 MG) PO SCH (10:00)
[2018-06-29] MEDS ORDERED: NON-FORMULARY (Tizanidine Hcl [Tizanidine] 2 MG) PO SCH (10:00)
[2018-06-29] MEDS ORDERED: RIBOFLAVIN 400 MG PO SCH (10:00)
[2018-06-29] MEDS ORDERED: NON-FORMULARY (Lurasidone Hcl [Latuda] 120 MG) PO SCH (10:00)
[2018-06-29] MEDS ORDERED: NON-FORMULARY (Losartan [Cozaar] 100 MG) PO SCH (10:00)
[2018-06-29] MEDS: FEOSOL PO SCH (10:34)
[2018-06-29] MEDS: KEFLEX PO SCH ×2 (10:34→21:49)
[2018-06-29] MEDS: PROTONIX PO SCH (10:34)
[2018-06-29] MEDS: LOPRESSOR PO SCH (10:35)
[2018-06-29] MEDS: ZANAFLEX PO SCH (10:36)
[2018-06-29] MEDS: COZAAR PO SCH (10:37)
[2018-06-29] MEDS: PLAQUENIL PO SCH (10:37)
[2018-06-29] MEDS: CYMBALTA PO SCH (10:58)
[2018-06-29] MEDS ORDERED: AFLURIA QUAD 2018-2019 SYRINGE IM ONE (12:00)
[2018-06-29] MEDS: TOPAMAX PO SCH (12:05)
--- NOTE | 2018-06-29 12:27 | Progress Note ---
Assessment and Plan Assessment and plan: 43F who pw Left shoulder pain Left shoulder pain with decreased ROM pain meds prn -Xray negative, obtain MR left shoulder Upon exam, she does not have chest pain chest pain ruled out had recent negative stress test, d dimer negative Migraine ROBLES -sumatriptan prn Hospitalist Physical - Constitutional Vitals: Temp Pulse Resp BP Pulse Ox 97.8 F 83 18 121/71 99 06/29/18 06:03 06/29/18 10:35 06/29/18 06:03 06/29/18 10:35 06/29/18 06:03 Results - Labs CBC & Chem 7: 06/28/18 04:25 10 04:25 Labs: Laboratory Last Values WBC 13.6 K/mm3 (4.5-11.0) H 06/28/18 04:25 RBC 4.36 M/mm3 (3.65-5.03) 06/28/18 04:25 Hgb 11.9 gm/dl (10.1-14.3) 06/28/18 04:25 Hct 37.9 % (30.3-42.9) 06/28/18 04:25 MCV 87 fl (79-97) 06/28/18 04:25 MCH 27 pg (28-32) L 06/28/18 04:25 MCHC 31 % (30-34) 06/28/18 04:25 RDW 13.5 % (13.2-15.2) 06/28/18 04:25 Plt Count 435 K/mm3 (140-440) 06/28/18 04:25 Lymph % (Auto) Furnace Reliner 06/28/18 04:25 Lymph # Furnace Reliner 06/28/18 04:25 Add Manual Diff Complete 06/28/18 04:25 Total Counted 100 06/28/18 04:25 Seg Neutrophils % Furnace Reliner 06/28/18 04:25 Seg Neuts % (Manual) 43.0 % (40.0-70.0) 06/28/18 04:25 Band Neutrophils % 4.0 % 06/28/18 04:25 Lymphocytes % (Manual) 39.0 % (13.4-35.0) H 06/28/18 04:25 Reactive Lymphs % (Man) 0 % 06/28/18 04:25 Monocytes % (Manual) 7.0 % (0.0-7.3) 06/28/18 04:25 Eosinophils % (Manual) 0 % (0.0-4.3) 06/28/18 04:25 Basophils % (Manual) 0 % (0.0-1.8) 06/28/18 04:25 Metamyelocytes % 7.0 % 06/28/18 04:25 Myelocytes % 0 % 06/28/18 04:25 Promyelocytes % 0 % 06/28/18 04:25 Blast Cells % 0 % 06/28/18 04:25 Nucleated RBC % Not Reportable 06/28/18 04:25 Seg Neutrophils # Man 5.8 K/mm3 (1.8-7.7) 06/28/18 04:25 Band Neutrophils # 0.5 K/mm3 06/28/18 04:25 Lymphocytes # (Manual) 5.3 K/mm3 (1.2-5.4) 06/28/18 04:25 Abs React Lymphs (Man) 0.0 K/mm3 06/28/18 04:25 Monocytes # (Manual) 1.0 K/mm3 (0.0-0.8) H 06/28/18 04:25 Eosinophils # (Manual) 0.0 K/mm3 (0.0-0.4) 06/28/18 04:25 Basophils # (Manual) 0.0 K/mm3 (0.0-0.1) 06/28/18 04:25 Metamyelocytes # 1.0 K/mm3 06/28/18 04:25 Myelocytes # 0.0 K/mm3 06/28/18 04:25 Promyelocytes # 0.0 K/mm3 06/28/18 04:25 Blast Cells # 0.0 K/mm3 06/28/18 04:25 WBC Morphology Not Reportable 06/28/18 04:25 Hypersegmented Neuts Not Reportable 06/28/18 04:25 Hyposegmented Neuts Not Reportable 06/28/18 04:25 Hypogranular Neuts Not Reportable 06/28/18 04:25 Smudge Cells Not Reportable 06/28/18 04:25 Toxic Granulation Not Reportable 06/28/18 04:25 Toxic Vacuolation Not Reportable 06/28/18 04:25 Dohle Bodies Not Reportable 06/28/18 04:25 Pelger-Huet Anomaly Not Reportable 06/28/18 04:25 Nay Rods Not Reportable 06/28/18 04:25 Platelet Estimate Appears normal 06/28/18 04:25 Clumped Platelets Not Reportable 06/28/18 04:25 Plt Clumps, EDTA Not Reportable 06/28/18 04:25 Large Platelets Not Reportable 06/28/18 04:25 Giant Platelets Not Reportable 06/28/18 04:25 Platelet Satelliting Not Reportable 06/28/18 04:25 Plt Morphology Comment Not Reportable 06/28/18 04:25 RBC Morphology Not Reportable 06/28/18 04:25 Dimorphic RBCs Not Reportable 06/28/18 04:25 Polychromasia Not Reportable 06/28/18 04:25 Hypochromasia Not Reportable 06/28/18 04:25 Poikilocytosis Not Reportable 06/28/18 04:25 Anisocytosis 1+ 06/28/18 04:25 Microcytosis Not Reportable 06/28/18 04:25 Macrocytosis Not Reportable 06/28/18 04:25 Spherocytes Not Reportable 06/28/18 04:25 Pappenheimer Bodies Not Reportable 06/28/18 04:25 Sickle Cells Not Reportable 06/28/18 04:25 Target Cells Not Reportable 06/28/18 04:25 Tear Drop Cells Not Reportable 06/28/18 04:25 Ovalocytes Not Reportable 06/28/18 04:25 Helmet Cells Not Reportable 06/28/18 04:25 Villatoro-[place] Bodies Not Reportable 06/28/18 04:25 [place] Rings Not Reportable 06/28/18 04:25 Renea Cells Not Reportable 06/28/18 04:25 Bite Cells Not Reportable 06/28/18 04:25 Crenated Cell Not Reportable 06/28/18 04:25 Elliptocytes Not Reportable 06/28/18 04:25 Acanthocytes (Spur) Not Reportable 06/28/18 04:25 Rouleaux Not Reportable 06/28/18 04:25 Hemoglobin C Crystals Not Reportable 06/28/18 04:25 Schistocytes Not Reportable 06/28/18 04:25 Malaria parasites Not Reportable 06/28/18 04:25 Yash Bodies Not Reportable 06/28/18 04:25 Hem Pathologist Commnt No 06/28/18 04:25 PT 13.2 Sec. (12.2-14.9) 06/28/18 06:20 INR 0.95 (0.87-1.13) 06/28/18 06:20 APTT 27.9 Sec. (24.2-36.6) 06/28/18 06:20 D-Dimer 239.38 ng/mlDDU (0-234) H 06/28/18 06:20 Sodium 141 mmol/L (137-145) 06/28/18 04:25 Potassium 4.6 mmol/L (3.6-5.0) 06/28/18 04:25 Chloride 106.8 mmol/L (98-107) 06/28/18 04:25 Carbon Dioxide 19 mmol/L (22-30) L 06/28/18 04:25 Anion Gap 20 mmol/L 06/28/18 04:25 BUN 11 mg/dL (7-17) 06/28/18 04:25 Creatinine 1.0 mg/dL (0.7-1.2) 06/28/18 04:25 Estimated GFR > 60 ml/min 06/28/18 04:25 BUN/Creatinine Ratio 11 % 06/28/18 04:25 Glucose 138 mg/dL (65-100) H 06/28/18 04:25 Calcium 9.6 mg/dL (8.4-10.2) 06/28/18 04:25 Magnesium 2.00 mg/dL (1.7-2.3) 06/28/18 06:20 Total Bilirubin < 0.20 mg/dL (0.1-1.2) 06/28/18 06:20 Direct Bilirubin < 0.2 mg/dL (0-0.2) 06/28/18 06:20 Indirect Bilirubin 0.0 mg/dL 06/28/18 06:20 AST 17 units/L (5-40) 06/28/18 06:20 ALT 12 units/L (7-56) 06/28/18 06:20 Alkaline Phosphatase 93 units/L (35-129) 06/28/18 06:20 Troponin T < 0.010 ng/mL (0.00-0.029) 06/28/18 10:34 NT-Pro-B Natriuret Pep 34.11 pg/mL (0-450) 06/28/18 06:20 Total Protein 7.5 g/dL (6.3-8.2) 06/28/18 06:20 Albumin 3.6 g/dL (3.9-5) L 06/28/18 06:20 Albumin/Globulin Ratio 0.9 % 06/28/18 06:20 Urine Color Yellow (Yellow) 06/28/18 Unknown Urine Turbidity Slightly-cloudy (Clear) 06/28/18 Unknown Urine pH 5.0 (5.0-7.0) 06/28/18 Unknown Ur Specific [place] 1.027 (1.003-1.030) 06/28/18 Unknown Urine Protein <15 mg/dl mg/dL (Negative) 06/28/18 Unknown Urine Glucose (UA) Neg mg/dL (Negative) 06/28/18 Unknown Urine Ketones Neg mg/dL (Negative) 06/28/18 Unknown Urine Blood Mod (Negative) 06/28/18 Unknown Urine Nitrite Neg (Negative) 06/28/18 Unknown Urine Bilirubin Neg (Negative) 06/28/18 Unknown Urine Urobilinogen < 2.0 mg/dL (<2.0) 06/28/18 Unknown Ur Leukocyte Esterase Mod (Negative) 06/28/18 Unknown Urine WBC (Auto) 15.0 /HPF (0.0-6.0) H 06/28/18 Unknown Urine RBC (Auto) 5.0 /HPF (0.0-6.0) 06/28/18 Unknown U Epithel Cells (Auto) 5.0 /HPF (0-13.0) 06/28/18 Unknown Urine Bacteria (Auto) 2+ /HPF (Negative) 06/28/18 Unknown Urine Mucus 1+ /HPF 06/28/18 Unknown Urine HCG, Qual Negative (Negative) 06/28/18 Unknown Urine Opiates Screen Presumptive negative 06/28/18 Unknown Urine Methadone Screen Presumptive negative 06/28/18 Unknown Ur Barbiturates Screen Presumptive negative 06/28/18 Unknown Ur Phencyclidine Scrn Presumptive negative 06/28/18 Unknown Ur Amphetamines Screen Presumptive negative 06/28/18 Unknown U Benzodiazepines Scrn Presumptive negative 06/28/18 Unknown Urine Cocaine Screen Presumptive negative 06/28/18 Unknown U Marijuana (THC) Screen Presumptive negative 06/28/18 Unknown Drugs of Abuse Note Disclamer 06/28/18 Unknown
[2018-06-29] MEDS ORDERED: ATIVAN IV NR (12:30)
[2018-06-29] MEDS: PRAVACHOL PO SCH (21:49)
[2018-06-29] MEDS: ELAVIL PO SCH (21:49)
[2018-06-29] MEDS ORDERED: ELAVIL PO SCH (22:00)
[2018-06-29] MEDS ORDERED: IMITREX PO PRN (22:17)
[2018-06-29] MEDS: HumaLOG SUB-Q SCH (22:47)
[2018-06-30] MEDS: SYNTHROID PO SCH ×2 (06:11)
[2018-06-30] MEDS: HumaLOG SUB-Q SCH ×2 (08:20→11:29)
[2018-06-30] MEDS: NORCO 5/325 PO PRN (08:57)
[2018-06-30] MEDS: FEOSOL PO SCH (11:23)
[2018-06-30] MEDS: ZANAFLEX PO SCH (11:23)
[2018-06-30] MEDS: PROTONIX PO SCH (11:23)
[2018-06-30] MEDS: TOPAMAX PO SCH (11:24)
[2018-06-30] MEDS: CYMBALTA PO SCH (11:24)
[2018-06-30] MEDS: KEFLEX PO SCH (11:24)
[2018-06-30] MEDS: PLAQUENIL PO SCH (11:25)
[2018-06-30] MEDS: LOPRESSOR PO SCH (11:26)
[2018-06-30 11:27] VITALS: BP 111/65
[2018-06-30] MEDS: COZAAR PO SCH (11:27)
--- NOTE | 2018-06-30 14:04 | Discharge Summary ---
Providers - Providers Date of Admission: 06/28/18 07:41 Attending physician: ARCHIE GUERRA MD Primary care physician: TIPPLE OPERATOR Hospitalization Condition: Stable Disposition: DC-01 TO HOME OR SELFCARE Time spent for discharge: 33 minutes Exam - Constitutional Vitals: Temp Pulse Resp BP Pulse Ox 98.6 F 93 H 18 111/65 98 06/30/18 06:09 06/30/18 06:09 06/30/18 06:09 06/30/18 11:26 06/30/18 06:09 Plan Follow up with: PRIMARY CARE, [Primary Care Provider] - 3-5 Days Prescriptions: Acetaminophen/Codeine [Tylenol /Codeine # 3 tab] 1 tab PO Q6H PRN #20 tab PRN Reason: Pain , Severe (7-10) methylPREDNISolone [Medrol Dose Eduard] 0 mg PO DAILY #1 pack
== END 2018-06-30 17:30 | disposition home or self-care (01) | DRG 556 ==
LOC: ED 04:10 → 4A 07:41 → 3A 18:39
PROVIDERS: ADMIT Internal Medicine; ATTEND Internal Medicine
DX: M25.512 Pain in left shoulder (principal); Z68.42 Body mass index [BMI] 45.0-49.9, adult; F31.9 Bipolar disorder, unspecified; E66.01 Morbid (severe) obesity due to excess calories; G43.909 Migraine, unspecified, not intractable, without status migrainosus; I10 Essential (primary) hypertension; E03.9 Hypothyroidism, unspecified; H53.149 Visual discomfort, unspecified; E11.9 Type 2 diabetes mellitus without complications; M19.90 Unspecified osteoarthritis, unspecified site; K21.9 Gastro-esophageal reflux disease without esophagitis; F41.9 Anxiety disorder, unspecified; Z88.6 Allergy status to analgesic agent; Z72.89 Other problems related to lifestyle; Z82.49 Family history of ischemic heart disease and other diseases of the circulatory system; Z71.3 Dietary counseling and surveillance; Z91.040 Latex allergy status; Z79.899 Other long term (current) drug therapy; Z86.73 Personal history of transient ischemic attack (TIA), and cerebral infarction without residual deficits
CPT/HCPCS: 36415; 71045; 80048; 80074; 80307; 81001; 81025; 82962; 83735; 83880; 84484; 85007; 85025; 85379; 85610; 85730; 90686; 93005; 93010; 99285; A9270-GY

== ENCOUNTER 2018-07-15 19:13 | Emergency (ER) | payer MEDICARE ==
[2018-07-15] MEDS ORDERED: ASPIRIN PO ONE (19:35)
[2018-07-15 20:14] LABS: Basophils % (Auto) 0.4 % (0.0-1.8); Eosinophils # (Auto) 0.2 K/mm3 (0.0-0.4); Hematocrit 35.3 % (30.3-42.9); Hemoglobin 11.5 gm/dl (10.1-14.3); Lymphocytes # (Auto) 3.1 K/mm3 (1.2-5.4); Lymphocytes % (Auto) 35.9 % (13.4-35.0); Mean Corpuscular HGB Conc 33 % (30-34); Mean Corpuscular Hemoglobin 27 pg (28-32); Mean Corpuscular Volume 84 fl (79-97); Monocytes # (Auto) 0.4 K/mm3 (0.0-0.8); Platelet Count 394 K/mm3 (140-440); Red Blood Count 4.22 M/mm3 (3.65-5.03); Red Cell Distribution Width 13.9 % (13.2-15.2)
[2018-07-15] MEDS ORDERED: NORCO 5/325 PO ONE (20:31)
--- NOTE | 2018-07-15 20:33 | Emergency Department Report ---
Blank Doc - Documentation Documentation: Patient is a 43-year-old [place] female with multiple medical problems which include lupus type 2 diabetes fibromyalgia and chronic kidney disease who is presenting with chest pain. Patient states since early this morning she's had sharp chest pain has been constant. There is shortness of breath. Patient states there is no pleuritic component. Patient has had stress tests in the past but not a cardiac cath. Patient does have a fisher spear. Focused physical exam patient is tachycardic has clear lungs. Patient will have a cardiac workup done as well as a d-dimer patient be reassessed
[2018-07-15 20:37] LABS: BUN/Creatinine Ratio 5; Blood Urea Nitrogen 4 mg/dL (7-17); Hemolysis Index 5
--- NOTE | 2018-07-15 21:18 | XRay Report ---
FINAL REPORT EXAM: XR CHEST ROUTINE 2V HISTORY: chest pain TECHNIQUE: AP and lateral views of the chest Comparison: Chest x-ray dated June 28, 2018 FINDINGS: There is bilateral hypoinflation. There is no evidence of focal infiltrate, pneumothorax or pleural fluid collection. The cardiomediastinal silhouette is normal in appearance. The bony structures are unremarkable. IMPRESSION: 1. Hypoinflation. 2. No plain film evidence of an acute pulmonary process.
[2018-07-15] MEDS ORDERED: SOLU-Medrol IV ONE (21:57)
[2018-07-15] MEDS ORDERED: MORPHINE IV ONE (21:57)
--- NOTE | 2018-07-16 00:08 | Emergency Department Report ---
ED Chest Pain HPI - General Chief Complaint: Chest Pain Stated Complaint: LEFT ARM PAIN/CHEST Time Seen by Provider: 07/15/18 20:29 Source: patient Mode of arrival: Ambulatory Limitations: No Limitations - History of Present Illness Initial Comments: 43-year-old -Japanese female with multiple medical history comes in for chest pain that started about 7:30 this morning. Patient reports that the chest pain radiates to her left arm. Patient denies any nausea vomiting she reports that the pain is over her heart and is similar to the past pain she's had before. Patient has a history of diabetes type 2 lupus and fibromyalgia bipolar thyroid disease, panic attacks. Patient reports that she had a CVA last July. MD Complaint: chest pain -: days(s) (1) Onset: during rest Pain Location: left chest Pain Radiation: LUE Severity scale (0 -10): 8 Quality: sharp, other Consistency: constant Improves With: nothing Worsens With: nothing Treatments Prior to Arrival: none - Related Data On Oral Contraceptives: No Home Medications Medication Instructions Recorded Confirmed Last Taken Fluticasone/Salmeterol [Advair 2 puff INHALATION PRN PRN 04/10/14 06/28/1806/25 08:00 Diskus 250-50 mcg] 2 puffs Simvastatin 1 tab PO DAILY 04/10/14 06/28/18 06/27/18 21:00 SUMAtriptan SUCCINATE [Imitrex] 100 mg PO Q6H PRN 03/10/15 06/28/18 06/18/18 17: 00 100mg Ferrous Sulfate [Feosol 325 MG tab] 325 mg PO QDAY 08/10/16 06/28/18 06/27/18 21 :00 325mg Riboflavin (Vitamin B2) 400 mg PO QDAY 08/10/16 06/28/18 06/27/18 21:00 [Riboflavin] Amitriptyline [Elavil] 100 mg PO QHS 12/10/17 06/28/18 06/27/18 21:00 Chlorzoxazone 500 mg PO DAILY 12/10/17 06/28/18 06/27/18 21:00 500mg Dexlansoprazole [Dexilant] 60 mg PO QDAY 12/10/17 06/28/18 06/27/18 21:00 60mg Duloxetine HCl [DULoxetine] 60 mg PO DAILY 12/10/17 06/28/18 06/27/18 21:00 60mg Losartan [Cozaar] 100 mg PO QDAY 12/10/17 06/28/18 06/27/18 21:00 Lubiprostone (Nf) [Amitiza (Nf)] 24 mcg PO DAILY 12/10/17 06/28/18 06/27/18 21: 00 Lurasidone HCl [Latuda] 120 mg PO QDAY 12/10/17 06/28/18 06/27/18 21:00 Pregabalin [Lyrica] 150 mg PO DAILY 12/10/17 06/28/18 06/27/18 21:00 150mg Tizanidine HCl [tiZANidine] 2 mg PO DAILY 12/10/17 06/28/18 06/27/18 21:00 clonazePAM [Klonopin] 0.5 mg PO DAILY 12/10/17 06/28/18 06/27/18 08:00 Hydroxychloroquine 200 mg PO DAILY 06/28/18 06/28/18 06/27/18 21:00 200mg Linaclotide (Nf) [Linzess (Nf)] 290 mg PO Q6HR PRN 06/28/18 06/28/18 06/20/18 08 :00 290mg Menthol/Camphor [[place] 1 applicatio TP Q6HR PRN 06/28/18 06/28/18 06/27/18 21:00 Ointment] Metoprolol [Lopressor TAB] 50 mg PO DAILY 06/28/18 06/28/18 06/27/18 21:00 traMADol 50 mg PO Q6HR PRN 06/28/18 06/28/18 06/27/18 21:00 50mg Previous Rx's Medication Instructions Recorded Last Taken Type Topiramate [Topamax] 200 mg PO DAILY #14 tablet 08/12/16 06/27/18 21:00 Rx 200mg Levothyroxine Sodium 137 mcg PO QAM #30 tablet 02/28/18 06/28/18 04:00 Rx [Levothyroxine] Acetaminophen/Codeine [Tylenol 1 tab PO Q6H PRN #20 tab 06/30/18 Unknown Rx /Codeine # 3 tab] methylPREDNISolone [Medrol Dose 0 mg PO DAILY #1 pack 06/30/18 Unknown Rx Eduard] Allergies Allergy/AdvReac Type Severity Reaction Status Date / Time aspirin Allergy Hives Verified 01/20/18 07:51 butorphanol tartrate Allergy Seizure Verified 01/20/18 07:51 [From Stadol] latex Allergy Hives Verified 01/20/18 07:51 NSAIDS (Non-Steroidal Allergy Hives Verified 01/20/18 07:51 Anti-Inflamma Heart Score - HEART Score History: Slightly suspicious EKG: Normal Age: < 45 Risk factors: > 3 risk factors or hx of atherosclerotic disease Troponin: < normal limit HEART Score: 2 ED Review of Systems ROS: Stated complaint: LEFT ARM PAIN/CHEST Other details as noted in HPI Comment: All other systems reviewed and negative Constitutional: denies: chills, fever Eyes: denies: eye pain, eye discharge, vision change ENT: denies: ear pain, throat pain Respiratory: shortness of breath. denies: cough, wheezing Cardiovascular: chest pain Endocrine: no symptoms reported Gastrointestinal: denies: abdominal pain, nausea, diarrhea Musculoskeletal: denies: back pain, joint swelling, arthralgia Skin: denies: rash, lesions Neurological: denies: headache, weakness, paresthesias Psychiatric: denies: anxiety, depression Hematological/Lymphatic: denies: easy bleeding, easy bruising ED Past Medical Hx - Past Medical History Hx Hypertension: Yes Hx CVA: Yes Hx Heart Attack/AMI: No Hx Congestive Heart Failure: No Hx Diabetes: Yes Hx Deep Vein Thrombosis: No Hx Pulmonary Embolism: No Hx GERD: No Hx Liver Disease: No Hx Renal Disease: No Hx Sickle Cell Disease: No Hx Arthritis: Yes (knees and back) Hx Headaches / Migraines: Yes Hx Seizures: Yes Hx Kidney Stones: Yes (Stage 3 CKD) Hx Psychiatric Treatment: Yes (Bipolar, Panic Attacks) Hx Asthma: Yes Hx COPD: No Hx Tuberculosis: No Hx Dementia: No Hx HIV: No Additional medical history: lupus, Gastroparesis, Neuropathy,. high cholesterol , Endometriosis,. bipolar, Fibromylagia, Thyroid disease,. depression. anxiety PANIC ATTACK. Hypothyroidism - Surgical History Hx Coronary Stent: No Hx Open Heart Surgery: No Hx Pacemaker: No Hx Internal Defibrillator: No Hx Cholecystectomy: No Hx Appendectomy: No Hx Breast Surgery: No Additional Surgical History: "rectal repair" after vaginal delivery. lump removed from right arm - Social History Smoking Status: Never Smoker Substance Use Type: None - Medications Home Medications: Home Medications Medication Instructions Recorded Confirmed Last Taken Type Fluticasone/Salmeterol [Advair 2 puff INHALATION PRN PRN 04/10/14 06/28/1806/25 08:00 History Diskus 250-50 mcg] 2 puffs Simvastatin 1 tab PO DAILY 04/10/14 06/28/18 06/27/18 21:00 History SUMAtriptan SUCCINATE [Imitrex] 100 mg PO Q6H PRN 03/10/15 06/28/18 06/18/18 17: 00 History 100mg Ferrous Sulfate [Feosol 325 MG tab] 325 mg PO QDAY 08/10/16 06/28/18 06/27/18 21 :00 History 325mg Riboflavin (Vitamin B2) 400 mg PO QDAY 08/10/16 06/28/18 06/27/18 21:00 History [Riboflavin] Topiramate [Topamax] 200 mg PO DAILY #14 tablet 08/12/16 06/28/18 06/27/18 21: 00 Rx 200mg Amitriptyline [Elavil] 100 mg PO QHS 12/10/17 06/28/18 06/27/18 21:00 History Chlorzoxazone 500 mg PO DAILY 12/10/17 06/28/18 06/27/18 21:00 History 500mg Dexlansoprazole [Dexilant] 60 mg PO QDAY 12/10/17 06/28/18 06/27/18 21:00 History 60mg Duloxetine HCl [DULoxetine] 60 mg PO DAILY 12/10/17 06/28/18 06/27/18 21:00 History 60mg Losartan [Cozaar] 100 mg PO QDAY 12/10/17 06/28/18 06/27/18 21:00 History Lubiprostone (Nf) [Amitiza (Nf)] 24 mcg PO DAILY 12/10/17 06/28/18 06/27/18 21: 00 History Lurasidone HCl [Latuda] 120 mg PO QDAY 12/10/17 06/28/18 06/27/18 21:00 History Pregabalin [Lyrica] 150 mg PO DAILY 12/10/17 06/28/18 06/27/18 21:00 History 150mg Tizanidine HCl [tiZANidine] 2 mg PO DAILY 12/10/17 06/28/18 06/27/18 21:00 History clonazePAM [Klonopin] 0.5 mg PO DAILY 12/10/17 06/28/18 06/27/18 08:00 History Levothyroxine Sodium 137 mcg PO QAM #30 tablet 02/28/18 06/28/18 06/28/18 04:00 Rx [Levothyroxine] Hydroxychloroquine 200 mg PO DAILY 06/28/18 06/28/18 06/27/18 21:00 History 200mg Linaclotide (Nf) [Linzess (Nf)] 290 mg PO Q6HR PRN 06/28/18 06/28/18 06/20/18 08 :00 History 290mg Menthol/Camphor [[place] 1 applicatio TP Q6HR PRN 06/28/18 06/28/18 06/27/18 21:00 History Ointment] Metoprolol [Lopressor TAB] 50 mg PO DAILY 06/28/18 06/28/18 06/27/18 21:00 History traMADol 50 mg PO Q6HR PRN 06/28/18 06/28/18 06/27/18 21:00 History 50mg Acetaminophen/Codeine [Tylenol 1 tab PO Q6H PRN #20 tab 06/30/18 Unknown Rx /Codeine # 3 tab] methylPREDNISolone [Medrol Dose 0 mg PO DAILY #1 pack 06/30/18 Unknown Rx Eduard] ED Physical Exam - General Limitations: No Limitations General appearance: alert, in no apparent distress - Head Head exam: Present: atraumatic, normocephalic - Eye Eye exam: Present: EOMI - ENT ENT exam: Present: mucous membranes moist - Neck Neck exam: Present: normal inspection - Respiratory Respiratory exam: Present: normal lung sounds bilaterally, chest wall tenderness. Absent: respiratory distress, wheezes, rales - Cardiovascular Cardiovascular Exam: Present: regular rate, normal rhythm. Absent: systolic murmur, diastolic murmur, rubs, gallop - GI/Abdominal GI/Abdominal exam: Present: soft. Absent: distended, tenderness - Neurological Exam Neurological exam: Present: alert, oriented X3 - Psychiatric Psychiatric exam: Present: flat affect - Skin Skin exam: Present: warm, dry, intact, normal color. Absent: rash ED Course Vital Signs 07/15/18 07/15/18 07/15/18 19:24 21:43 22:01 Temperature 98.6 F Pulse Rate 118 H 81 Respiratory 18 21 17 Rate Blood Pressure 159/81 Blood Pressure [Left] O2 Sat by Pulse 98 100 98 Oximetry 07/15/18 07/15/18 07/15/18 22:19 22:31 23:01 Temperature Pulse Rate 84 84 Respiratory 17 20 Rate Blood Pressure Blood Pressure 132/80 [Left] O2 Sat by Pulse 97 99 Oximetry ÁNGEL score - Ángel Score Age > 65: (0) No Aspirin use within the Past 7 Days: (0) No 3 or more CAD Risk Factors: (0) No 2 or more Angina events in past 24 hrs: (0) No Known CAD with more than 50% Stenosis: (0) No Elevated Cardiac Markers: (0) No ST Deviation Greater than 0.5mm: (0) No ÁNGEL Score: 0 ED Medical Decision Making - Lab Data Result diagrams: 07/15/18 19:54 07/15/18 19:54 - Radiology Data Radiology results: report reviewed FINDINGS: There is bilateral hypoinflation. There is no evidence of focal infiltrate, pneumothorax or pleural fluid collection. The cardiomediastinal silhouette is normal in appearance. The bony structures are unremarkable. IMPRESSION: 1. Hypoinflation. 2. No plain film evidence of an acute pulmonary process. Transcribed By: ED Dictated By: SHAUN CORONEL MD Electronically Authenticated By: SHAUN CORONEL MD Signed Date/Time: 07/15/182115 DD/ 15 - Medical Decision Making Patient has been evaluated by this provider as well as Dr. Greg Triplett in fast track. Chest pain protocol has been initiated. Patient's had 2 negative troponins negative EKG and negative d-dimer. Chest pain is reproducible. Would discharge patient home to continue her chronic pain medication. Discussed the patient to follow up with her radio installer automobile Dr. Davidson. Patient verbalizes understanding. Critical Care Time: No Critical care attestation.: If time is entered above; I have spent that time in minutes in the direct care of this critically ill patient, excluding procedure time. ED Disposition Clinical Impression: Chest pain Qualifiers: Chest pain type: unspecified Qualified Code(s): R07.9 - Chest pain, unspecified Disposition: TO HOME OR SELFCARE Is pt being admited?: No Does the pt Need Aspirin: No Condition: Stable Instructions: Costochondritis (ED), Angina (ED), Chest Pain (ED) Additional Instructions: Please continue with her chronic pain medication as prescribed by your other providers. Please follow up with her radio installer automobile. Referrals: PRIMARY CARE,MD [Primary Care Provider] - 3-5 Days Your, Physician Recruiter [Other] - 3-5 Days
[2018-07-16 00:10] VITALS: BP 126/88
== END 2018-07-16 01:19 | disposition home or self-care (01) ==
LOC: ED 19:13
DX: R07.89 Other chest pain (principal); I12.9 Hypertensive chronic kidney disease with stage 1 through stage 4 chronic kidney disease, or unspecified chronic kidney disease; E11.22 Type 2 diabetes mellitus with diabetic chronic kidney disease; N18.3 Chronic kidney disease, stage 3 (moderate); E11.40 Type 2 diabetes mellitus with diabetic neuropathy, unspecified; M19.90 Unspecified osteoarthritis, unspecified site; G43.909 Migraine, unspecified, not intractable, without status migrainosus; J45.909 Unspecified asthma, uncomplicated; E78.00 Pure hypercholesterolemia, unspecified; E03.9 Hypothyroidism, unspecified; Z88.8 Allergy status to other drugs, medicaments and biological substances; Z88.6 Allergy status to analgesic agent; Z91.040 Latex allergy status
CPT/HCPCS: 36415; 71046; 80048; 84484; 84703; 85025; 85379; 93005; 93010; 96374; 96375; 99284; J2270; J2930

== ENCOUNTER 2018-10-04 18:54 | Emergency (ER) | payer MEDICARE ==
[2018-10-04 19:00] VITALS: BP 156/100
[2018-10-04] MEDS ORDERED: TYLENOL #3 PO ONE (21:57)
[2018-10-04] MEDS ORDERED: BENADRYL PO ONE (21:57)
[2018-10-04] MEDS ORDERED: DECADRON IM ONE (21:57)
[2018-10-04] MEDS ORDERED: REGLAN PO ONE (21:57)
--- NOTE | 2018-10-04 22:12 | Emergency Department Report ---
ED Headache HPI - General Chief Complaint: Headache Stated Complaint: HEAD PAIN/HIGH BP Time Seen by Provider: 10/04/18 21:56 - History of Present Illness Initial Comments: Patient is a 43-year-old female history of hypertension asthma anxiety headaches seasonal allergies who presents for left lateral parietal headache that started this a.m. states sinus pressure and pain no photophobia no nausea vomiting has been no wheezing . No shortness of breath no dizziness no lightheadedness patient this is similar to headaches the past in location and intensity. Timing/Duration: 24 hours Quality: moderate Head Injury Location: parietal (left ) Recent Head Trauma: no recent headache/trauma, occasional headaches Modifying Factors: improves with: movement (while is has not really S and all) Associated Symptoms: facial pain, nasal congestion, sinus infection. denies: fatigue, fever/chills, flushing, loss of consciousness, nausea/vomiting, nasal drainage, numbness in legs/feet, rash, seizures, stiff neck, vision changes, weakness Allergies/Adverse Reactions: Allergies aspirin Allergy (Verified 01/20/18 07:51) Hives butorphanol tartrate [From Stadol] Allergy (Verified 01/20/18 07:51) Seizure latex Allergy (Verified 01/20/18 07:51) Hives NSAIDS (Non-Steroidal Anti-Inflamma Allergy (Verified 01/20/18 07:51) Hives Home Medications: Ambulatory Orders Fluticasone/Salmeterol [Advair Diskus 250-50 mcg] 2 puff INHALATION PRN PRN 04/10/14 Simvastatin 1 tab PO DAILY 04/10/14 SUMAtriptan SUCCINATE [Imitrex] 100 mg PO Q6H PRN 03/10/15 Ferrous Sulfate [Feosol 325 MG tab] 325 mg PO QDAY 08/10/16 Riboflavin (Vitamin B2) [Riboflavin] 400 mg PO QDAY 08/10/16 Topiramate [Topamax] 200 mg PO DAILY #14 tablet 08/12/16 Amitriptyline [Elavil] 100 mg PO QHS 12/10/17 Chlorzoxazone 500 mg PO DAILY 12/10/17 Dexlansoprazole [Dexilant] 60 mg PO QDAY 12/10/17 Duloxetine HCl [DULoxetine] 60 mg PO DAILY 12/10/17 Losartan [Cozaar] 100 mg PO QDAY 12/10/17 Lubiprostone (Nf) [Amitiza (Nf)] 24 mcg PO DAILY 12/10/17 Lurasidone HCl [Latuda] 120 mg PO QDAY 12/10/17 Pregabalin [Lyrica] 150 mg PO DAILY 12/10/17 Tizanidine HCl [tiZANidine] 2 mg PO DAILY 12/10/17 clonazePAM [Klonopin] 0.5 mg PO DAILY 12/10/17 Levothyroxine Sodium [Levothyroxine] 137 mcg PO QAM #30 tablet 02/28/18 Hydroxychloroquine 200 mg PO DAILY 06/28/18 Linaclotide (Nf) [Linzess (Nf)] 290 mg PO Q6HR PRN 06/28/18 Menthol/Camphor [[place] Ointment] 1 applicatio TP Q6HR PRN 06/28/18 Metoprolol [Lopressor TAB] 50 mg PO DAILY 06/28/18 traMADol 50 mg PO Q6HR PRN 06/28/18 Acetaminophen/Codeine [Tylenol /Codeine # 3 tab] 1 tab PO Q6H PRN #20 tab 06/30/18 methylPREDNISolone [Medrol Dose Eduard] 0 mg PO DAILY #1 pack 06/30/18 Butalb/Acetamin/Caff 50-325-40 [Fioricet] 1 tab PO Q6HR PRN #10 tab 09/17/18 Acetaminophen [Tylenol Extra Strength] 1,000 mg PO QID PRN #30 tablet 10/04/18 Amoxicillin/Potassium Clav [Augmentin 875-125 Tablet] 1 each PO BID #20 tablet 10/04/18 Metoclopramide [Reglan] 10 mg PO ACHS PRN #30 tablet 10/04/18 diphenhydrAMINE [Benadryl CAP] 25 mg PO Q6HR PRN #30 capsule 10/04/18 ED Review of Systems ROS: Stated complaint: HEAD PAIN/HIGH BP Other details as noted in HPI Constitutional: denies: chills, fever Eyes: denies: eye pain, eye discharge, vision change ENT: ear pain, congestion Respiratory: denies: cough, wheezing Cardiovascular: denies: chest pain, palpitations Endocrine: no symptoms reported Gastrointestinal: denies: abdominal pain, nausea, diarrhea Genitourinary: denies: urgency, dysuria, discharge Musculoskeletal: denies: back pain, joint swelling, arthralgia Skin: denies: rash, lesions Neurological: headache. denies: weakness, numbness, paresthesias, confusion, abnormal gait, vertigo Psychiatric: denies: anxiety, depression Hematological/Lymphatic: denies: easy bleeding, easy bruising ED Past Medical Hx - Past Medical History Hx Hypertension: Yes Hx CVA: Yes Hx Heart Attack/AMI: No Hx Congestive Heart Failure: No Hx Diabetes: Yes Hx Deep Vein Thrombosis: No Hx Pulmonary Embolism: No Hx GERD: No Hx Liver Disease: No Hx Renal Disease: No Hx Sickle Cell Disease: No Hx Arthritis: Yes (knees and back) Hx Headaches / Migraines: Yes Hx Seizures: Yes Hx Kidney Stones: Yes (Stage 3 CKD) Hx Psychiatric Treatment: Yes (Bipolar, Panic Attacks) Hx Asthma: Yes Hx COPD: No Hx Tuberculosis: No Hx Dementia: No Hx HIV: No Additional medical history: lupus, Gastroparesis, Neuropathy,. high cholesterol, Endometriosis,. bipolar, Fibromylagia, Thyroid disease,. depression. anxiety PANIC ATTACK. Hypothyroidism - Surgical History Hx Coronary Stent: No Hx Open Heart Surgery: No Hx Pacemaker: No Hx Internal Defibrillator: No Hx Cholecystectomy: No Hx Appendectomy: No Hx Breast Surgery: No Additional Surgical History: "rectal repair" after vaginal delivery. lump removed from right arm - Social History Smoking Status: Never Smoker Substance Use Type: None - Medications Home Medications: Home Medications Medication Instructions Recorded Confirmed Last Taken Type Fluticasone/Salmeterol [Advair 2 puff INHALATION PRN PRN 04/10/14 06/28/18 06/25/18 08:00 History Diskus 250-50 mcg] 2 puffs Simvastatin 1 tab PO DAILY 04/10/14 06/28/18 06/27/18 21:00 History SUMAtriptan SUCCINATE [Imitrex] 100 mg PO Q6H PRN 03/10/15 06/28/18 06/18/18 17:00 History 100mg Ferrous Sulfate [Feosol 325 MG tab] 325 mg PO QDAY 08/10/16 06/28/18 06/27/18 21:00 History 325mg Riboflavin (Vitamin B2) 400 mg PO QDAY 08/10/16 06/28/18 06/27/18 21:00 History [Riboflavin] Topiramate [Topamax] 200 mg PO DAILY #14 tablet 08/12/16 06/28/18 06/27/18 21:00 Rx 200mg Amitriptyline [Elavil] 100 mg PO QHS 12/10/17 06/28/18 06/27/18 21:00 History Chlorzoxazone 500 mg PO DAILY 12/10/17 06/28/18 06/27/18 21:00 History 500mg Dexlansoprazole [Dexilant] 60 mg PO QDAY 12/10/17 06/28/18 06/27/18 21:00 History 60mg Duloxetine HCl [DULoxetine] 60 mg PO DAILY 12/10/17 06/28/18 06/27/18 21:00 History 60mg Losartan [Cozaar] 100 mg PO QDAY 12/10/17 06/28/18 06/27/18 21:00 History Lubiprostone (Nf) [Amitiza (Nf)] 24 mcg PO DAILY 12/10/17 06/28/18 06/27/18 21:00 History Lurasidone HCl [Latuda] 120 mg PO QDAY 12/10/17 06/28/18 06/27/18 21:00 History Pregabalin [Lyrica] 150 mg PO DAILY 12/10/17 06/28/18 06/27/18 21:00 History 150mg Tizanidine HCl [tiZANidine] 2 mg PO DAILY 12/10/17 06/28/18 06/27/18 21:00 History clonazePAM [Klonopin] 0.5 mg PO DAILY 12/10/17 06/28/18 06/27/18 08:00 History Levothyroxine Sodium 137 mcg PO QAM #30 tablet 02/28/18 06/28/18 06/28/18 04:00 Rx [Levothyroxine] Hydroxychloroquine 200 mg PO DAILY 06/28/18 06/28/18 06/27/18 21:00 History 200mg Linaclotide (Nf) [Linzess (Nf)] 290 mg PO Q6HR PRN 06/28/18 06/28/18 06/20/18 08:00 History 290mg Menthol/Camphor [[place] 1 applicatio TP Q6HR PRN 06/28/18 06/28/18 06/27/18 21:00 History Ointment] Metoprolol [Lopressor TAB] 50 mg PO DAILY 06/28/18 06/28/18 06/27/18 21:00 History traMADol 50 mg PO Q6HR PRN 06/28/18 06/28/18 06/27/18 21:00 History 50mg Acetaminophen/Codeine [Tylenol 1 tab PO Q6H PRN #20 tab 06/30/18 Unknown Rx /Codeine # 3 tab] methylPREDNISolone [Medrol Dose 0 mg PO DAILY #1 pack 06/30/18 Unknown Rx Eduard] Butalb/Acetamin/Caff 50-325-40 1 tab PO Q6HR PRN #10 tab 09/17/18 Unknown Rx [Fioricet] Acetaminophen [Tylenol Extra 1,000 mg PO QID PRN #30 tablet 10/04/18 Unknown Rx Strength] Amoxicillin/Potassium Clav 1 each PO BID #20 tablet 10/04/18 Unknown Rx [Augmentin 875-125 Tablet] Metoclopramide [Reglan] 10 mg PO ACHS PRN #30 tablet 10/04/18 Unknown Rx diphenhydrAMINE [Benadryl CAP] 25 mg PO Q6HR PRN #30 capsule 10/04/18 Unknown Rx ED Physical Exam - General Limitations: No Limitations General appearance: alert, in no apparent distress - Head Head exam: Present: atraumatic, normocephalic, normal inspection - Eye Eye exam: Present: normal appearance, PERRL, EOMI Pupils: Present: normal accommodation - ENT ENT exam: Present: normal orophraynx, mucous membranes moist - Expanded ENT Exam Expanded Ear exam: Present: normal external inspection TM/Canal exam: Erythema: Left TM, Canal Tenderness: Left TM Mouth exam: Present: normal external inspection. Absent: trismus, tongue normal, tongue elevation Teeth exam: Present: normal inspection Throat exam: Positive: tonsillar erythema. Negative: tonsillomegaly, tonsillar exudate, R peritonsillar mass, L peritonsillar mass - Neck Neck exam: Present: normal inspection, full ROM. Absent: tenderness, meningismus, lymphadenopathy, thyromegaly - Respiratory Respiratory exam: Present: normal lung sounds bilaterally. Absent: respiratory distress, wheezes, stridor, chest wall tenderness - Cardiovascular Cardiovascular Exam: Present: regular rate, normal rhythm, normal heart sounds - GI/Abdominal GI/Abdominal exam: Present: soft, normal bowel sounds. Absent: distended, bruit, hernia - Rectal Rectal exam: Present: deferred - External exam: Present: normal external exam - Extremities Exam Extremities exam: Present: normal inspection - Back Exam Back exam: Present: normal inspection, full ROM. Absent: tenderness, CVA tenderness (R), CVA tenderness (L), muscle spasm, rash noted - Neurological Exam Neurological exam: Present: alert, oriented X3, CN II-XII intact, normal gait, reflexes normal. Absent: motor sensory deficit - Expanded Neurological Exam Expanded Patient oriented to: Present: person, place, time Speech: Present: fluid speech Cranial nerves: EOM's Intact: Normal, Gag Reflex: Normal, Tongue Deviation: Normal, Nystagmus: Normal, Facial Sensation: Normal Cerebellar function: Finger to Nose: Normal, Heel to Robin: Normal, Romberg: Normal (TASHA [place]) Upper motor neuron: Zain Neglect: Normal, Pronator Drift: Normal, Babinski Sign: Normal, Sensory Extinction: Normal Sensory exam: Upper Extremity Light Touch: Normal, Upper Extremity Pin Prick: Normal, Upper Extremity Temperature: Normal, UE 2 Point Discrimination: Normal, Lower Extremity Light Touch: Normal, Lower Extremity Pin Prick: Normal, Lower Extremity Temperature: Normal, LE 2 Point Discrimination: Normal Motor strength exam: RUE: 5, LUE: 5, RLE: 5, LLE: 5 Best Eye Response ([place]): (4) open spontaneously Best Motor Response (Johan): (6) obeys commands Best Verbal Response (Chap[place]): (5) oriented [place] Total: 15 - Psychiatric Psychiatric exam: Present: normal affect, normal mood - Skin Skin exam: Present: warm (is is), dry, intact, normal color. Absent: rash ED Course Vital Signs 10/04/18 18:57 Temperature 97.7 F Pulse Rate 82 Respiratory 18 Rate Blood Pressure 156/100 O2 Sat by Pulse 99 Oximetry ED Medical Decision Making - Medical Decision Making This is a recurring headache with this patient same location and intensity as headaches of past on exam noted bilat frontal and maxillary sinus pain, nose boggy turbinates with clear post nasal drip, L TM erythema pain with movement. Dx: headache with sinusitis left AOM symptoms improved with antiemetic medication given in ED would be to see a whole prescription for Augmentin Tylenol Benadryl and Reglan patient hypotensive episode today however did not take metoprolol today advised to take blood pressure medicine upon arrival home there is no chest pain or shortness of breath or dizziness no lightheadedness no nausea vomiting patient is A/O 3 and was steady gait with no acute distress Critical care attestation.: If time is entered above; I have spent that time in minutes in the direct care of this critically ill patient, excluding procedure time. ED Disposition Clinical Impression: Sinus headache Sinusitis Qualifiers: Sinusitis location: frontal Chronicity: acute Recurrence: non-recurrent Qualified Code(s): J01.10 - Acute frontal sinusitis, unspecified AOM (acute otitis media) Qualifiers: Otitis media type: serous Laterality: left Recurrence: non-recurrent Qualified Code(s): H65.02 - Acute serous otitis media, left ear Disposition: TO HOME OR SELFCARE Is pt being admited?: No Does the pt Need Aspirin: No (and will) Condition: Stable Instructions: Sinusitis (ED), Otitis Media (ED), Acute Headache (ED) Prescriptions: Acetaminophen [Tylenol Extra Strength] 1,000 mg PO QID PRN #30 tablet PRN Reason: pain Amoxicillin/Potassium Clav [Augmentin 875-125 Tablet] 1 each PO BID #20 tablet diphenhydrAMINE [Benadryl CAP] 25 mg PO Q6HR PRN #30 capsule PRN Reason: Headache Metoclopramide [Reglan] 10 mg PO ACHS PRN #30 tablet PRN Reason: Headache Referrals: [facility] [Outside] - 3-5 Days Forms: Work/School Release Form(ED) Time of Disposition: 22:28
== END 2018-10-04 23:10 | disposition home or self-care (01) ==
LOC: ED 18:54
DX: J01.10 Acute frontal sinusitis, unspecified (principal); H65.02 Acute serous otitis media, left ear; I12.9 Hypertensive chronic kidney disease with stage 1 through stage 4 chronic kidney disease, or unspecified chronic kidney disease; E11.22 Type 2 diabetes mellitus with diabetic chronic kidney disease; N18.3 Chronic kidney disease, stage 3 (moderate); M19.90 Unspecified osteoarthritis, unspecified site; J45.909 Unspecified asthma, uncomplicated; E78.00 Pure hypercholesterolemia, unspecified; E03.9 Hypothyroidism, unspecified; G43.909 Migraine, unspecified, not intractable, without status migrainosus; E11.40 Type 2 diabetes mellitus with diabetic neuropathy, unspecified; Z88.8 Allergy status to other drugs, medicaments and biological substances; Z79.4 Long term (current) use of insulin; Z86.73 Personal history of transient ischemic attack (TIA), and cerebral infarction without residual deficits; Z88.6 Allergy status to analgesic agent; Z91.040 Latex allergy status
CPT/HCPCS: 96372; 99283; J1100

== ENCOUNTER 2018-12-04 23:43 | Emergency (ER) | payer MEDICARE ==
[2018-12-05 01:25] LABS: Amorphous Crystals,Urine 2+; Bilirubin,Urine NEG (Negative); Blood,Urine NEG (Negative); Color,Urine Yellow (Yellow); Protein,Urine <15 mg/dL mg/dL (Negative); Urobilinogen,Urine < 2.0 mg/dL (<2.0)
[2018-12-05 01:45] LABS: RBC,Urine < 1.0 /HPF (0.0-6.0)
[2018-12-05] MEDS ORDERED: ZOFRAN IV ONE (02:57)
[2018-12-05] MEDS ORDERED: MORPHINE IV ONE (02:57)
[2018-12-05] MEDS ORDERED: NACL 0.9% 1000 ML 1,000 ML IV ONE (02:57)
--- NOTE | 2018-12-05 02:59 | Emergency Department Report ---
ED Abdominal Pain HPI - General Chief Complaint: Abdominal Pain Stated Complaint: ABD CRAMPS Time Seen by Provider: 12/05/18 02:11 Source: patient Mode of arrival: Ambulatory Limitations: No Limitations - History of Present Illness Initial Comments: 43-year-old female reports diffuse abdominal pain radiating around to her back. States pain awoke her from sleep pain, is crampy in nature. Patient denies fever, nausea, vomiting, dysuria, hematuria, urinary frequency, vaginal discharge, vaginal bleeding. MD Complaint: abdominal pain -: During the night Location: diffuse Radiation: back Migration to: no migration Severity: moderate Severity scale (0 -10): 8 Quality: cramping Consistency: constant Improves With: nothing Worsens With: nothing Associated Symptoms: denies: nausea, vomiting, diarrhea, fever, dysuria, hematuria - Related Data Home Medications Medication Instructions Recorded Confirmed Last Taken Fluticasone/Salmeterol [Advair 2 puff INHALATION PRN PRN 04/10/14 06/28/18 06/25/18 08:00 Diskus 250-50 mcg] 2 puffs Simvastatin 1 tab PO DAILY 04/10/14 06/28/18 06/27/18 21:00 SUMAtriptan SUCCINATE [Imitrex] 100 mg PO Q6H PRN 03/10/15 06/28/18 06/18/18 17:00 100mg Ferrous Sulfate [Feosol 325 MG tab] 325 mg PO QDAY 08/10/16 06/28/18 06/27/18 21:00 325mg Riboflavin (Vitamin B2) 400 mg PO QDAY 08/10/16 06/28/18 06/27/18 21:00 [Riboflavin] Amitriptyline [Elavil] 100 mg PO QHS 12/10/17 06/28/18 06/27/18 21:00 Chlorzoxazone 500 mg PO DAILY 12/10/17 06/28/18 06/27/18 21:00 500mg Dexlansoprazole [Dexilant] 60 mg PO QDAY 12/10/17 06/28/18 06/27/18 21:00 60mg Duloxetine HCl [DULoxetine] 60 mg PO DAILY 12/10/17 06/28/18 06/27/18 21:00 60mg Losartan [Cozaar] 100 mg PO QDAY 03/06/28/18 06/27/18 21:00 Lubiprostone (Nf) [Amitiza (Nf)] 24 mcg PO DAILY 12/10/17 06/28/18 06/27/18 21:00 Lurasidone HCl [Latuda] 120 mg PO QDAY 12/10/17 06/28/18 06/27/18 21:00 Pregabalin [Lyrica] 150 mg PO DAILY 12/10/17 06/28/18 06/27/18 21:00 150mg Tizanidine HCl [tiZANidine] 2 mg PO DAILY 12/10/17 06/28/18 06/27/18 21:00 clonazePAM [Klonopin] 0.5 mg PO DAILY 12/10/17 06/28/18 06/27/18 08:00 Hydroxychloroquine 200 mg PO DAILY 06/28/18 06/28/18 06/27/18 21:00 200mg Linaclotide (Nf) [Linzess (Nf)] 290 mg PO Q6HR PRN 06/28/18 06/28/18 06/20/18 08:00 290mg Menthol/Camphor [[place] 1 applicatio TP Q6HR PRN 06/28/18 06/28/18 06/27/18 21:00 Ointment] Metoprolol [Lopressor TAB] 50 mg PO DAILY 06/28/18 06/28/18 06/27/18 21:00 traMADol 50 mg PO Q6HR PRN 06/28/18 06/28/18 06/27/18 21:00 50mg Previous Rx's Medication Instructions Recorded Last Taken Type Topiramate [Topamax] 200 mg PO DAILY #14 tablet 08/12/16 06/27/18 21:00 Rx 200mg Levothyroxine Sodium 137 mcg PO QAM #30 tablet 02/28/18 06/28/18 04:00 Rx [Levothyroxine] Acetaminophen/Codeine [Tylenol 1 tab PO Q6H PRN #20 tab 06/30/18 Unknown Rx /Codeine # 3 tab] methylPREDNISolone [Medrol Dose 0 mg PO DAILY #1 pack 06/30/18 Unknown Rx Eduard] Butalb/Acetamin/Caff 50-325-40 1 tab PO Q6HR PRN #10 tab 09/17/18 Unknown Rx [Fioricet] Acetaminophen [Tylenol Extra 1,000 mg PO QID PRN #30 tablet 10/04/18 Unknown Rx Strength] Amoxicillin/Potassium Clav 1 each PO BID #20 tablet 10/04/18 Unknown Rx [Augmentin 875-125 Tablet] Metoclopramide [Reglan] 10 mg PO ACHS PRN #30 tablet 10/04/18 Unknown Rx diphenhydrAMINE [Benadryl CAP] 25 mg PO Q6HR PRN #30 capsule 10/04/18 Unknown Rx Dicyclomine [Bentyl] 20 mg PO QID PRN #20 tablet 12/05/18 Unknown Rx Allergies Allergy/AdvReac Type Severity Reaction Status Date / Time aspirin Allergy Hives Verified 01/20/18 07:51 butorphanol tartrate Allergy Seizure Verified 01/20/18 07:51 [From Stadol] latex Allergy Hives Verified 01/20/18 07:51 NSAIDS (Non-Steroidal Allergy Hives Verified 01/20/18 07:51 Anti-Inflamma ED Review of Systems ROS: Stated complaint: ABD CRAMPS Other details as noted in HPI Comment: All other systems reviewed and negative Constitutional: denies: chills, fever Gastrointestinal: abdominal pain. denies: nausea, vomiting, diarrhea Genitourinary: denies: dysuria, frequency, hematuria, discharge Musculoskeletal: back pain ED Past Medical Hx - Past Medical History Hx Hypertension: Yes Hx CVA: Yes (TIA) Hx Heart Attack/AMI: No Hx Congestive Heart Failure: No Hx Diabetes: Yes Hx Deep Vein Thrombosis: No Hx Pulmonary Embolism: No Hx GERD: No Hx Liver Disease: No Hx Renal Disease: No Hx Sickle Cell Disease: No Hx Arthritis: Yes (knees and back) Hx Headaches / Migraines: Yes Hx Seizures: Yes Hx Kidney Stones: Yes (Stage 3 CKD) Hx Psychiatric Treatment: Yes (Bipolar, Panic Attacks) Hx Asthma: Yes Hx COPD: No Hx Tuberculosis: No Hx Dementia: No Hx HIV: No Additional medical history: lupus, Gastroparesis, Neuropathy,. high cholesterol, Endometriosis,. bipolar, Fibromylagia, Thyroid disease,. depression. anxiety PANIC ATTACK, corporal tunnel syndrome. Hypothyroidism - Surgical History Past Surgical History?: Yes Hx Coronary Stent: No Hx Open Heart Surgery: No Hx Pacemaker: No Hx Internal Defibrillator: No Hx Cholecystectomy: No Hx Appendectomy: No Hx Breast Surgery: No Additional Surgical History: "rectal repair" after vaginal delivery. lump removed from right arm - Social History Smoking Status: Current Every Day Smoker Substance Use Type: None - Medications Home Medications: Home Medications Medication Instructions Recorded Confirmed Last Taken Type Fluticasone/Salmeterol [Advair 2 puff INHALATION PRN PRN 04/10/14 06/28/18 06/25/18 08:00 History Diskus 250-50 mcg] 2 puffs Simvastatin 1 tab PO DAILY 04/10/14 06/28/18 06/27/18 21:00 History SUMAtriptan SUCCINATE [Imitrex] 100 mg PO Q6H PRN 03/10/15 06/28/18 06/18/18 17:00 History 100mg Ferrous Sulfate [Feosol 325 MG tab] 325 mg PO QDAY 08/10/16 06/28/18 06/27/18 21:00 History 325mg Riboflavin (Vitamin B2) 400 mg PO QDAY 08/10/16 06/28/18 06/27/18 21:00 History [Riboflavin] Topiramate [Topamax] 200 mg PO DAILY #14 tablet 08/12/16 06/28/18 06/27/18 21:00 Rx 200mg Amitriptyline [Elavil] 100 mg PO QHS 12/10/17 06/28/18 06/27/18 21:00 History Chlorzoxazone 500 mg PO DAILY 12/10/17 06/28/18 06/27/18 21:00 History 500mg Dexlansoprazole [Dexilant] 60 mg PO QDAY 12/10/17 06/28/18 06/27/18 21:00 History 60mg Duloxetine HCl [DULoxetine] 60 mg PO DAILY 12/10/17 06/28/18 06/27/18 21:00 History 60mg Losartan [Cozaar] 100 mg PO QDAY 12/10/17 06/28/18 06/27/18 21:00 History Lubiprostone (Nf) [Amitiza (Nf)] 24 mcg PO DAILY 12/10/17 06/28/18 06/27/18 21:00 History Lurasidone HCl [Latuda] 120 mg PO QDAY 12/10/17 06/28/18 06/27/18 21:00 History Pregabalin [Lyrica] 150 mg PO DAILY 12/10/17 06/28/18 06/27/18 21:00 History 150mg Tizanidine HCl [tiZANidine] 2 mg PO DAILY 12/10/17 06/28/18 06/27/18 21:00 History clonazePAM [Klonopin] 0.5 mg PO DAILY 12/10/17 06/28/18 06/27/18 08:00 History Levothyroxine Sodium 137 mcg PO QAM #30 tablet 02/28/18 06/28/18 06/28/18 04:00 Rx [Levothyroxine] Hydroxychloroquine 200 mg PO DAILY 06/28/18 06/28/18 06/27/18 21:00 History 200mg Linaclotide (Nf) [Linzess (Nf)] 290 mg PO Q6HR PRN 06/28/18 06/28/18 06/20/18 08:00 History 290mg Menthol/Camphor [[place] 1 applicatio TP Q6HR PRN 06/28/18 06/28/18 06/27/18 21:00 History Ointment] Metoprolol [Lopressor TAB] 50 mg PO DAILY 06/28/18 06/28/18 06/27/18 21:00 History traMADol 50 mg PO Q6HR PRN 06/28/18 06/28/18 06/27/18 21:00 History 50mg Acetaminophen/Codeine [Tylenol 1 tab PO Q6H PRN #20 tab 06/30/18 Unknown Rx /Codeine # 3 tab] methylPREDNISolone [Medrol Dose 0 mg PO DAILY #1 pack 06/30/18 Unknown Rx Eduard] Butalb/Acetamin/Caff 50-325-40 1 tab PO Q6HR PRN #10 tab 09/17/18 Unknown Rx [Fioricet] Acetaminophen [Tylenol Extra 1,000 mg PO QID PRN #30 tablet 10/04/18 Unknown Rx Strength] Amoxicillin/Potassium Clav 1 each PO BID #20 tablet 10/04/18 Unknown Rx [Augmentin 875-125 Tablet] Metoclopramide [Reglan] 10 mg PO ACHS PRN #30 tablet 10/04/18 Unknown Rx diphenhydrAMINE [Benadryl CAP] 25 mg PO Q6HR PRN #30 capsule 10/04/18 Unknown Rx Dicyclomine [Bentyl] 20 mg PO QID PRN #20 tablet 12/05/18 Unknown Rx ED Physical Exam - General Limitations: No Limitations General appearance: alert, in no apparent distress, obese - Head Head exam: Present: atraumatic, normocephalic - Eye Eye exam: Present: normal appearance - ENT ENT exam: Present: mucous membranes moist - Neck Neck exam: Present: normal inspection - Respiratory Respiratory exam: Present: normal lung sounds bilaterally. Absent: respiratory distress - Cardiovascular Cardiovascular Exam: Present: regular rate, normal rhythm - GI/Abdominal GI/Abdominal exam: Present: soft, tenderness (mild diffuse). Absent: distended - Extremities Exam Extremities exam: Present: normal inspection - Back Exam Back exam: Absent: CVA tenderness (R), CVA tenderness (L) - Neurological Exam Neurological exam: Present: alert, oriented X3 - Psychiatric Psychiatric exam: Present: normal affect, normal mood - Skin Skin exam: Present: warm, dry, intact, normal color. Absent: rash ED Course Vital Signs 12/05/18 12/05/18 00:44 04:35 Temperature 98.8 F Pulse Rate 110 H 10 L Respiratory 18 16 Rate Blood Pressure 148/94 Blood Pressure 103/66 [Left] O2 Sat by Pulse 96 100 Oximetry - Reevaluation(s) Reevaluation #1: 12/05/18 02:59 Pt states no allergy to morphine. ED Medical Decision Making - Lab Data Result diagrams: 12/05/18 03:06 12/05/18 03:06 - Radiology Data Radiology results: report reviewed - Medical Decision Making Labs unremarkable. CT scan normal. Patient feels much better at this time. Patient states she sees a managing partner [employer] [place] for her endometriosis. Advise follow-up with her physicians. We'll discharge at this time. - Differential Diagnosis gastroenteritis, pancreatitis, kidney stone Critical care attestation.: If time is entered above; I have spent that time in minutes in the direct care of this critically ill patient, excluding procedure time. ED Disposition Clinical Impression: Abdominal pain Disposition: DC-01 TO HOME OR SELFCARE Is pt being admited?: No Condition: Stable Instructions: Abdominal Pain (ED) Prescriptions: Dicyclomine [Bentyl] 20 mg PO QID PRN #20 tablet PRN Reason: abdominal pain Referrals: PRIMARY CARE, [Referring] - 3-5 Days Time of Disposition: 05:15
[2018-12-05 03:17] LABS: Hematocrit 34.2 % (30.3-42.9); Hemoglobin 11.3 gm/dl (10.1-14.3); Mean Corpuscular HGB Conc 33 % (30-34); Mean Corpuscular Volume 85 fl (79-97); Red Blood Count 4.01 M/mm3 (3.65-5.03); Red Cell Distribution Width 13.8 % (13.2-15.2)
[2018-12-05 03:28] LABS: HCG Qualitative,Urine Negative (Negative)
[2018-12-05 03:34] LABS: Platelet Count 441 K/mm3 (140-440)
[2018-12-05 03:37] LABS: Alanine Aminotransferase 14 units/L (7-56); Albumin 3.9 g/dL (3.9-5); BUN/Creatinine Ratio 9; Blood Urea Nitrogen 10 mg/dL (7-17); Calcium 9.3 mg/dL (8.4-10.2); Hemolysis Index 9
[2018-12-05 04:38] VITALS: BP 103/66
--- NOTE | 2018-12-05 04:43 | Cat Scan Report ---
PROCEDURE: CT ABDOMEN PELVIS W CON TECHNIQUE: CT imaging is obtained through the abdomen and pelvis in late arterial and delayed phases following intravenous administration of contrast. Transaxial, coronal and sagittal reformations are provided. HISTORY: abd pain COMPARISONS: None FINDINGS: Partially visualized intrathoracic contents are unremarkable. The liver, gallbladder, pancreas, spleen, and adrenal glands are unremarkable. Kidneys show no worrisome lesions, hydronephrosis, or calculi. Urinary bladder is unremarkable. Antev erted uterus. No free fluid in the pelvis. Small and large bowel are normal in caliber. Appendix is normal. No free air, free fluid, or lymphade nopathy identified. Aorta is normal in course and caliber. Superficial soft tissues are unremarkable. No acute or aggressive appearing skeletal findings. IMPRESSION: No acute findings in the abdomen or pelvis. This document is electronically signed by Andre Shelton MD., December 05 2018 04:41:02 AM ET
[2018-12-05 04:58] LABS: Basophils % (Manual) 0 % (0.0-1.8); Platelet Clumps Few; Platelet Estimate Consistent w Auto; Total Cells Counted 100
== END 2018-12-05 06:01 | disposition home or self-care (01) ==
LOC: ED 23:43
DX: R10.9 Unspecified abdominal pain (principal); E11.9 Type 2 diabetes mellitus without complications; G43.909 Migraine, unspecified, not intractable, without status migrainosus; F31.9 Bipolar disorder, unspecified; J45.909 Unspecified asthma, uncomplicated; E78.00 Pure hypercholesterolemia, unspecified; E03.9 Hypothyroidism, unspecified; I12.9 Hypertensive chronic kidney disease with stage 1 through stage 4 chronic kidney disease, or unspecified chronic kidney disease; N18.3 Chronic kidney disease, stage 3 (moderate); Z86.73 Personal history of transient ischemic attack (TIA), and cerebral infarction without residual deficits; Z98.890 Other specified postprocedural states; F17.200 Nicotine dependence, unspecified, uncomplicated; Z88.5 Allergy status to narcotic agent; Z91.040 Latex allergy status; Z88.8 Allergy status to other drugs, medicaments and biological substances; Z79.4 Long term (current) use of insulin; Z79.899 Other long term (current) drug therapy
CPT/HCPCS: 36415; 74177; 80053; 81001; 81025; 83690; 85007; 85025; 96361; 96374; 96375; 99284; J2270; J2405; J7030; Q9967

== ENCOUNTER 2018-12-20 14:33 | Emergency (ER) | payer MEDICARE ==
[2018-12-20 14:46] VITALS: BP 126/86
[2018-12-20] MEDS ORDERED: ULTRAM PO ONE (15:28)
--- NOTE | 2018-12-20 15:40 | Emergency Department Report ---
ED General Adult HPI - General Chief complaint: Pain General Stated complaint: NAUSEA/LIGHT HEADED Time Seen by Provider: 12/20/18 14:58 Source: EMS Mode of arrival: Stretcher Limitations: No Limitations - History of Present Illness Initial comments: 43-year-old female with history of bipolar, fibromyalgia, endometriosis, chronic back pain presents to ED with diffuse body pain. Patient states she normally takes Tylenol 3, tramadol, Lyrica daily. Patient states she ran out 3 days ago. States she was seen by her pain management physician on yesterday and given a refill for those medications. However, patient states she was told by pharmacy that they don't have those medications readily available and that they needed to be ordered. - Related Data Home Medications Medication Instructions Recorded Confirmed Last Taken Fluticasone/Salmeterol [Advair 2 puff INHALATION PRN PRN 04/10/14 06/28/18 06/25/18 08:00 Diskus 250-50 mcg] 2 puffs Simvastatin 1 tab PO DAILY 04/10/14 06/28/18 06/27/18 21:00 SUMAtriptan SUCCINATE [Imitrex] 100 mg PO Q6H PRN 03/10/15 06/28/18 06/18/18 17:00 100mg Ferrous Sulfate [Feosol 325 MG tab] 325 mg PO QDAY 08/10/16 06/28/18 06/27/18 21:00 325mg Riboflavin (Vitamin B2) 400 mg PO QDAY 08/10/16 06/28/18 06/27/18 21:00 [Riboflavin] Amitriptyline [Elavil] 100 mg PO QHS 12/10/17 06/28/18 06/27/18 21:00 Chlorzoxazone 500 mg PO DAILY 12/10/17 06/28/18 06/27/18 21:00 500mg Dexlansoprazole [Dexilant] 60 mg PO QDAY 12/10/17 06/28/18 06/27/18 21:00 60mg Duloxetine HCl [DULoxetine] 60 mg PO DAILY 12/10/17 06/28/18 06/27/18 21:00 60mg Losartan [Cozaar] 100 mg PO QDAY 12/10/17 06/28/18 06/27/18 21:00 Lubiprostone (Nf) [Amitiza (Nf)] 24 mcg PO DAILY 12/10/17 06/28/18 06/27/18 21:00 Lurasidone HCl [Latuda] 120 mg PO QDAY 12/10/17 06/28/18 06/27/18 21:00 Pregabalin [Lyrica] 150 mg PO DAILY 12/10/17 06/28/18 06/27/18 21:00 150mg Tizanidine HCl [tiZANidine] 2 mg PO DAILY 12/10/17 06/28/18 06/27/18 21:00 clonazePAM [Klonopin] 0.5 mg PO DAILY 12/10/17 06/28/18 06/27/18 08:00 Hydroxychloroquine 200 mg PO DAILY 06/28/18 06/28/18 06/27/18 21:00 200mg Linaclotide (Nf) [Linzess (Nf)] 290 mg PO Q6HR PRN 06/28/18 06/28/18 06/20/18 08:00 290mg Menthol/Camphor [[employer] [place] 1 applicatio TP Q6HR PRN 06/28/18 06/28/18 06/27/18 21:00 Ointment] Metoprolol [Lopressor TAB] 50 mg PO DAILY 06/28/18 06/28/18 06/27/18 21:00 traMADol 50 mg PO Q6HR PRN 06/28/18 06/28/18 06/27/18 21:00 50mg Previous Rx's Medication Instructions Recorded Last Taken Type Topiramate [Topamax] 200 mg PO DAILY #14 tablet 08/12/16 06/27/18 21:00 Rx 200mg Levothyroxine Sodium 137 mcg PO QAM #30 tablet 02/28/18 06/28/18 04:00 Rx [Levothyroxine] Acetaminophen/Codeine [Tylenol 1 tab PO Q6H PRN #20 tab 06/30/18 Unknown Rx /Codeine # 3 tab] methylPREDNISolone [Medrol Dose 0 mg PO DAILY #1 pack 06/30/18 Unknown Rx Eduard] Butalb/Acetamin/Caff 50-325-40 1 tab PO Q6HR PRN #10 tab 09/17/18 Unknown Rx [Fioricet] Acetaminophen [Tylenol Extra 1,000 mg PO QID PRN #30 tablet 10/04/18 Unknown Rx Strength] Amoxicillin/Potassium Clav 1 each PO BID #20 tablet 10/04/18 Unknown Rx [Augmentin 875-125 Tablet] Metoclopramide [Reglan] 10 mg PO ACHS PRN #30 tablet 10/04/18 Unknown Rx diphenhydrAMINE [Benadryl CAP] 25 mg PO Q6HR PRN #30 capsule 10/04/18 Unknown Rx Dicyclomine [Bentyl] 20 mg PO QID PRN #20 tablet 12/05/18 Unknown Rx Allergies Allergy/AdvReac Type Severity Reaction Status Date / Time aspirin Allergy Hives Verified 01/20/18 07:51 butorphanol tartrate Allergy Seizure Verified 01/20/18 07:51 [From Stadol] latex Allergy Hives Verified 01/20/18 07:51 NSAIDS (Non-Steroidal Allergy Hives Verified 01/20/18 07:51 Anti-Inflamma ED Review of Systems ROS: Stated complaint: NAUSEA/LIGHT HEADED Other details as noted in HPI Comment: All other systems reviewed and negative Gastrointestinal: abdominal pain, nausea Musculoskeletal: back pain, myalgia ED Past Medical Hx - Past Medical History Hx Hypertension: Yes Hx CVA: Yes (TIA) Hx Heart Attack/AMI: No Hx Congestive Heart Failure: No Hx Diabetes: Yes Hx Deep Vein Thrombosis: No Hx Pulmonary Embolism: No Hx GERD: No Hx Liver Disease: No Hx Renal Disease: No Hx Sickle Cell Disease: No Hx Arthritis: Yes (knees and back) Hx Headaches / Migraines: Yes Hx Seizures: Yes Hx Kidney Stones: Yes (Stage 3 CKD) Hx Psychiatric Treatment: Yes (Bipolar, Panic Attacks) Hx Asthma: Yes Hx COPD: No Hx Tuberculosis: No Hx Dementia: No Hx HIV: No Additional medical history: lupus, Gastroparesis, Neuropathy,. high cholesterol, Endometriosis,. bipolar, Fibromylagia, Thyroid disease,. depression. anxiety PANIC ATTACK, corporal tunnel syndrome. Hypothyroidism - Surgical History Hx Coronary Stent: No Hx Open Heart Surgery: No Hx Pacemaker: No Hx Internal Defibrillator: No Hx Cholecystectomy: No Hx Appendectomy: No Hx Breast Surgery: No Additional Surgical History: "rectal repair" after vaginal delivery. lump removed from right arm - Social History Smoking Status: Never Smoker Substance Use Type: Alcohol - Medications Home Medications: Home Medications Medication Instructions Recorded Confirmed Last Taken Type Fluticasone/Salmeterol [Advair 2 puff INHALATION PRN PRN 04/10/14 06/28/18 06/25/18 08:00 History Diskus 250-50 mcg] 2 puffs Simvastatin 1 tab PO DAILY 04/10/14 06/28/18 06/27/18 21:00 History SUMAtriptan SUCCINATE [Imitrex] 100 mg PO Q6H PRN 03/10/15 06/28/18 06/18/18 17:00 History 100mg Ferrous Sulfate [Feosol 325 MG tab] 325 mg PO QDAY 08/10/16 06/28/18 06/27/18 21:00 History 325mg Riboflavin (Vitamin B2) 400 mg PO QDAY 08/10/16 06/28/18 06/27/18 21:00 History [Riboflavin] Topiramate [Topamax] 200 mg PO DAILY #14 tablet 08/12/16 06/28/18 06/27/18 21:00 Rx 200mg Amitriptyline [Elavil] 100 mg PO QHS 12/10/17 06/28/18 06/27/18 21:00 History Chlorzoxazone 500 mg PO DAILY 12/10/17 06/28/18 06/27/18 21:00 History 500mg Dexlansoprazole [Dexilant] 60 mg PO QDAY 12/10/17 06/28/18 06/27/18 21:00 History 60mg Duloxetine HCl [DULoxetine] 60 mg PO DAILY 12/10/17 06/28/18 06/27/18 21:00 History 60mg Losartan [Cozaar] 100 mg PO QDAY 12/10/17 06/28/18 06/27/18 21:00 History Lubiprostone (Nf) [Amitiza (Nf)] 24 mcg PO DAILY 12/10/17 06/28/18 06/27/18 21:00 History Lurasidone HCl [Latuda] 120 mg PO QDAY 12/10/17 06/28/18 06/27/18 21:00 History Pregabalin [Lyrica] 150 mg PO DAILY 12/10/17 06/28/18 06/27/18 21:00 History 150mg Tizanidine HCl [tiZANidine] 2 mg PO DAILY 12/10/17 06/28/18 06/27/18 21:00 History clonazePAM [Klonopin] 0.5 mg PO DAILY 12/10/17 06/28/18 06/27/18 08:00 History Levothyroxine Sodium 137 mcg PO QAM #30 tablet 02/28/18 06/28/18 06/28/18 04:00 Rx [Levothyroxine] Hydroxychloroquine 200 mg PO DAILY 06/28/18 06/28/18 06/27/18 21:00 History 200mg Linaclotide (Nf) [Linzess (Nf)] 290 mg PO Q6HR PRN 06/28/18 06/28/18 06/20/18 08:00 History 290mg Menthol/Camphor [[employer] [place] 1 applicatio TP Q6HR PRN 06/28/18 06/28/18 06/27/18 21:00 History Ointment] Metoprolol [Lopressor TAB] 50 mg PO DAILY 06/28/18 06/28/18 06/27/18 21:00 History traMADol 50 mg PO Q6HR PRN 06/28/18 06/28/18 06/27/18 21:00 History 50mg Acetaminophen/Codeine [Tylenol 1 tab PO Q6H PRN #20 tab 06/30/18 Unknown Rx /Codeine # 3 tab] methylPREDNISolone [Medrol Dose 0 mg PO DAILY #1 pack 06/30/18 Unknown Rx Eduard] Butalb/Acetamin/Caff 50-325-40 1 tab PO Q6HR PRN #10 tab 09/17/18 Unknown Rx [Fioricet] Acetaminophen [Tylenol Extra 1,000 mg PO QID PRN #30 tablet 10/04/18 Unknown Rx Strength] Amoxicillin/Potassium Clav 1 each PO BID #20 tablet 10/04/18 Unknown Rx [Augmentin 875-125 Tablet] Metoclopramide [Reglan] 10 mg PO ACHS PRN #30 tablet 10/04/18 Unknown Rx diphenhydrAMINE [Benadryl CAP] 25 mg PO Q6HR PRN #30 capsule 10/04/18 Unknown Rx Dicyclomine [Bentyl] 20 mg PO QID PRN #20 tablet 12/05/18 Unknown Rx ED Physical Exam - General Limitations: No Limitations General appearance: alert, in no apparent distress - Head Head exam: Present: atraumatic, normocephalic - Eye Eye exam: Present: normal appearance - ENT ENT exam: Present: mucous membranes moist - Neck Neck exam: Present: normal inspection - Respiratory Respiratory exam: Present: normal lung sounds bilaterally. Absent: respiratory distress - Cardiovascular Cardiovascular Exam: Present: regular rate, normal rhythm - GI/Abdominal GI/Abdominal exam: Present: soft. Absent: distended, tenderness - Extremities Exam Extremities exam: Present: normal inspection - Neurological Exam Neurological exam: Present: alert, oriented X3, CN II-XII intact. Absent: motor sensory deficit - Psychiatric Psychiatric exam: Present: normal affect, normal mood - Skin Skin exam: Present: warm, dry, intact, normal color ED Course Vital Signs 12/20/18 12/20/18 12/20/18 14:44 14:45 15:39 Respiratory 18 Rate Blood Pressure 126/86 O2 Sat by Pulse 93 100 Oximetry ED Medical Decision Making - Medical Decision Making 43-year-old female with history of endometriosis, chronic low back pain, fibromyalgia. The patient reports "pain all over" due to the fact that she has not had her Tylenol 3, ultram, and Lyrica for 3 days. Patient states no change in character or location of her pain. Unable to get her medications filled on yesterday after seeing her pain management physician. Patient given tramadol here in the ED. She is in no acute distress, appears comfortable. Vital signs normal. Outpatient follow-up advised. Return precautions given. - Differential Diagnosis chronic pain Critical care attestation.: If time is entered above; I have spent that time in minutes in the direct care of this critically ill patient, excluding procedure time. ED Disposition Clinical Impression: Chronic pain Disposition: DC-01 TO HOME OR SELFCARE Is pt being admited?: No Condition: Stable Instructions: Chronic Pain (ED) Time of Disposition: 15:38
== END 2018-12-20 16:00 | disposition home or self-care (01) ==
LOC: ED 14:33
DX: G89.29 Other chronic pain (principal); M54.5 Low back pain; E11.22 Type 2 diabetes mellitus with diabetic chronic kidney disease; I12.9 Hypertensive chronic kidney disease with stage 1 through stage 4 chronic kidney disease, or unspecified chronic kidney disease; N18.3 Chronic kidney disease, stage 3 (moderate); F31.9 Bipolar disorder, unspecified; J45.909 Unspecified asthma, uncomplicated; F41.9 Anxiety disorder, unspecified; M17.0 Bilateral primary osteoarthritis of knee; E78.00 Pure hypercholesterolemia, unspecified; Z86.73 Personal history of transient ischemic attack (TIA), and cerebral infarction without residual deficits; Z87.42 Personal history of other diseases of the female genital tract; Z79.82 Long term (current) use of aspirin; Z88.6 Allergy status to analgesic agent; Z91.040 Latex allergy status; Z88.5 Allergy status to narcotic agent

== ENCOUNTER 2019-03-12 02:13 | Emergency (ER) | payer MEDICARE ==
[2019-03-12] MEDS ORDERED: ASPIRIN PO ONE (02:17)
[2019-03-12 03:05] LABS: Hematocrit 33.1 % (30.3-42.9); Hemoglobin 11.1 gm/dl (10.1-14.3); Mean Corpuscular HGB Conc 33 % (30-34); Mean Corpuscular Volume 86 fl (79-97); Platelet Count 451 K/mm3 (140-440); Red Blood Count 3.83 M/mm3 (3.65-5.03); Red Cell Distribution Width 13.6 % (13.2-15.2)
--- NOTE | 2019-03-12 03:06 | XRay Report ---
PROCEDURE: XR CHEST 1V AP TECHNIQUE: Chest radiograph single view. HISTORY: Chest Pain COMPARISONS: 07/15/2018 . FINDINGS: Heart: Normal. Mediastinum/Vessels: Normal. Lungs/Pleural space: Normal. Bony thorax: No acute osseous abnormality. Life support devices: None. IMPRESSION: No acute cardiopulmonary abnormality. This document is electronically signed by aSnford Smyth MD., March 12 2019 03:04:10 AM ET
[2019-03-12 03:30] LABS: BUN/Creatinine Ratio 7; Blood Urea Nitrogen 10 mg/dL (7-17); Calcium 9.4 mg/dL (8.4-10.2); Hemolysis Index 4
[2019-03-12 04:17] LABS: Basophils % (Manual) 0 % (0.0-1.8); Eosinophils % (Manual) 0 % (0.0-4.3); Total Cells Counted 100
[2019-03-12 04:18] LABS: Platelet Estimate Consistent w Auto
[2019-03-12] MEDS ORDERED: ZOFRAN ODT PO ONE (06:17)
[2019-03-12] MEDS ORDERED: ALUM-MAG HYDROX-SIMETH 200-200-20MG/5ML PO ONE (06:17)
[2019-03-12] MEDS ORDERED: NORCO 5/325 PO ONE (06:17)
--- NOTE | 2019-03-12 06:17 | Emergency Department Report ---
ED Chest Pain HPI - General Chief Complaint: Chest Pain Stated Complaint: CHEST PAIN Time Seen by Provider: 03/12/19 06:08 Source: patient Mode of arrival: Ambulatory Limitations: No Limitations - History of Present Illness Initial Comments: Mrs. Pedro is a 43-year-old female with a history of a 2017, diabetes mellitus, migraine headaches, hypertension, CAD, bipolar affective disorder, panic attacks, lupus, gastroparesis, dyslipidemia, fibromyalgia, depression, thyroid disease who presents with chest pain which awakened her from sleep at 1 AM this morning. The pain burning sensation radiating to both arms. No fever. No cough. No shortness of breath. No leg pain. No recent travel. She is followed by senior investment manager Dr. Carr [facility]. She has a follow- up appt with her senior investment manager today. She is followed by Dr. Choi gastroenter ologist for "stomach issues". She had a normal cardiac stress test in October. MD Complaint: chest pain -: Sudden, This morning Onset: during rest Pain Location: substernal Severity scale (0 -10): 7 Quality: other (Burning) Consistency: constant Improves With: nothing Worsens With: nothing - Related Data Home Medications Medication Instructions Recorded Confirmed Last Taken Fluticasone/Salmeterol [Advair 2 puff INHALATION PRN PRN 04/10/14 06/28/18 06/25/18 08:00 Diskus 250-50 mcg] 2 puffs Simvastatin 1 tab PO DAILY 04/10/14 06/28/18 06/27/18 21:00 SUMAtriptan SUCCINATE [Imitrex] 100 mg PO Q6H PRN 03/10/15 06/28/18 06/18/18 17:00 100mg Ferrous Sulfate [Feosol 325 MG tab] 325 mg PO QDAY 08/10/16 06/28/18 06/27/18 21:00 325mg Riboflavin (Vitamin B2) 400 mg PO QDAY 08/10/16 06/28/18 06/27/18 21:00 [Riboflavin] Amitriptyline [Elavil] 100 mg PO QHS 12/10/17 06/28/18 06/27/18 21:00 Chlorzoxazone 500 mg PO DAILY 12/10/17 06/28/18 06/27/18 21:00 500mg Dexlansoprazole [Dexilant] 60 mg PO QDAY 12/10/17 06/28/18 06/27/18 21:00 60mg Duloxetine HCl [DULoxetine] 60 mg PO DAILY 12/10/17 06/28/18 06/27/18 21:00 60mg Losartan [Cozaar] 100 mg PO QDAY 12/10/17 06/28/18 06/27/18 21:00 Lubiprostone (Nf) [Amitiza (Nf)] 24 mcg PO DAILY 12/10/17 06/28/18 06/27/18 21:00 Lurasidone HCl [Latuda] 120 mg PO QDAY 12/10/17 06/28/18 06/27/18 21:00 Pregabalin [Lyrica] 150 mg PO DAILY 12/10/17 06/28/18 06/27/18 21:00 150mg Tizanidine HCl [tiZANidine] 2 mg PO DAILY 12/10/17 06/28/18 06/27/18 21:00 clonazePAM [Klonopin] 0.5 mg PO DAILY 12/10/17 06/28/18 06/27/18 08:00 Hydroxychloroquine 200 mg PO DAILY 06/28/18 06/28/18 06/27/18 21:00 200mg Linaclotide (Nf) [Linzess (Nf)] 290 mg PO Q6HR PRN 06/28/18 06/28/18 06/20/18 08:00 290mg Menthol/Camphor [[place] 1 applicatio TP Q6HR PRN 06/28/18 06/28/18 06/27/18 21:00 Ointment] Metoprolol [Lopressor TAB] 50 mg PO DAILY 06/28/18 06/28/18 06/27/18 21:00 traMADol 50 mg PO Q6HR PRN 06/28/18 06/28/18 06/27/18 21:00 50mg Previous Rx's Medication Instructions Recorded Last Taken Type Topiramate [Topamax] 200 mg PO DAILY #14 tablet 08/12/16 06/27/18 21:00 Rx 200mg Levothyroxine Sodium 137 mcg PO QAM #30 tablet 02/28/18 06/28/18 04:00 Rx [Levothyroxine] Acetaminophen/Codeine [Tylenol 1 tab PO Q6H PRN #20 tab 06/30/18 Unknown Rx /Codeine # 3 tab] methylPREDNISolone [Medrol Dose 0 mg PO DAILY #1 pack 06/30/18 Unknown Rx Eduard] Butalb/Acetamin/Caff 50-325-40 1 tab PO Q6HR PRN #10 tab 09/17/18 Unknown Rx [Fioricet] Acetaminophen [Tylenol Extra 1,000 mg PO QID PRN #30 tablet 10/04/18 Unknown Rx Strength] Amoxicillin/Potassium Clav 1 each PO BID #20 tablet 10/04/18 Unknown Rx [Augmentin 875-125 Tablet] Metoclopramide [Reglan] 10 mg PO ACHS PRN #30 tablet 10/04/18 Unknown Rx diphenhydrAMINE [Benadryl CAP] 25 mg PO Q6HR PRN #30 capsule 10/04/18 Unknown Rx Dicyclomine [Bentyl] 20 mg PO QID PRN #20 tablet 12/05/18 Unknown Rx Allergies Allergy/AdvReac Type Severity Reaction Status Date / Time aspirin Allergy Hives Verified 01/20/18 07:51 butorphanol tartrate Allergy Seizure Verified 01/20/18 07:51 [From Stadol] latex Allergy Hives Verified 01/20/18 07:51 NSAIDS (Non-Steroidal Allergy Hives Verified 01/20/18 07:51 Anti-Inflamma Heart Score - HEART Score History: Slightly suspicious EKG: Normal Age: < 45 Risk factors: > 3 risk factors or hx of atherosclerotic disease Troponin: < normal limit HEART Score: 2 ED Review of Systems ROS: Stated complaint: CHEST PAIN Other details as noted in HPI Comment: All other systems reviewed and negative Constitutional: denies: fever, malaise Respiratory: denies: cough Cardiovascular: chest pain ED Past Medical Hx - Past Medical History Previous Medical History?: Yes Hx Hypertension: Yes Hx CVA: Yes (TIA) Hx Heart Attack/AMI: No Hx Congestive Heart Failure: No Hx Diabetes: Yes Hx Deep Vein Thrombosis: No Hx Pulmonary Embolism: No Hx GERD: No Hx Liver Disease: No Hx Renal Disease: No Hx Sickle Cell Disease: No Hx Arthritis: Yes (knees and back) Hx Headaches / Migraines: Yes Hx Seizures: Yes Hx Kidney Stones: Yes (Stage 3 CKD) Hx Psychiatric Treatment: Yes (Bipolar, Panic Attacks) Hx Asthma: Yes Hx COPD: No Hx Tuberculosis: No Hx Dementia: No Hx HIV: No Additional medical history: lupus, Gastroparesis, Neuropathy,. high cholesterol, Endometriosis,. bipolar, Fibromylagia, Thyroid disease,. depression. anxiety PANIC ATTACK, corporal tunnel syndrome. Hypothyroidism - Surgical History Past Surgical History?: Yes Hx Coronary Stent: No Hx Open Heart Surgery: No Hx Pacemaker: No Hx Internal Defibrillator: No Hx Cholecystectomy: No Hx Appendectomy: No Hx Breast Surgery: No Additional Surgical History: "rectal repair" after vaginal delivery. lump removed from right arm - Social History Smoking Status: Never Smoker Substance Use Type: None - Medications Home Medications: Home Medications Medication Instructions Recorded Confirmed Last Taken Type Fluticasone/Salmeterol [Advair 2 puff INHALATION PRN PRN 04/10/14 06/28/18 06/25/18 08:00 History Diskus 250-50 mcg] 2 puffs Simvastatin 1 tab PO DAILY 04/10/14 06/28/18 06/27/18 21:00 History SUMAtriptan SUCCINATE [Imitrex] 100 mg PO Q6H PRN 03/10/15 06/28/18 06/18/18 17:00 History 100mg Ferrous Sulfate [Feosol 325 MG tab] 325 mg PO QDAY 08/10/16 06/28/18 06/27/18 21:00 History 325mg Riboflavin (Vitamin B2) 400 mg PO QDAY 08/10/16 06/28/18 06/27/18 21:00 History [Riboflavin] Topiramate [Topamax] 200 mg PO DAILY #14 tablet 08/12/16 06/28/18 06/27/18 21:00 Rx 200mg Amitriptyline [Elavil] 100 mg PO QHS 12/10/17 06/28/18 06/27/18 21:00 History Chlorzoxazone 500 mg PO DAILY 12/10/17 06/28/18 06/27/18 21:00 History 500mg Dexlansoprazole [Dexilant] 60 mg PO QDAY 12/10/17 06/28/18 06/27/18 21:00 History 60mg Duloxetine HCl [DULoxetine] 60 mg PO DAILY 12/10/17 06/28/18 06/27/18 21:00 History 60mg Losartan [Cozaar] 100 mg PO QDAY 12/10/17 06/28/18 06/27/18 21:00 History Lubiprostone (Nf) [Amitiza (Nf)] 24 mcg PO DAILY 12/10/17 06/28/18 06/27/18 21:00 History Lurasidone HCl [Latuda] 120 mg PO QDAY 12/10/17 06/28/18 06/27/18 21:00 History Pregabalin [Lyrica] 150 mg PO DAILY 12/10/17 06/28/18 06/27/18 21:00 History 150mg Tizanidine HCl [tiZANidine] 2 mg PO DAILY 12/10/17 06/28/18 06/27/18 21:00 History clonazePAM [Klonopin] 0.5 mg PO DAILY 12/10/17 06/28/18 06/27/18 08:00 History Levothyroxine Sodium 137 mcg PO QAM #30 tablet 02/28/18 06/28/18 06/28/18 04:00 Rx [Levothyroxine] Hydroxychloroquine 200 mg PO DAILY 06/28/18 06/28/18 06/27/18 21:00 History 200mg Linaclotide (Nf) [Linzess (Nf)] 290 mg PO Q6HR PRN 06/28/18 06/28/18 06/20/18 08:00 History 290mg Menthol/Camphor [[place] 1 applicatio TP Q6HR PRN 06/28/18 06/28/18 06/27/18 21:00 History Ointment] Metoprolol [Lopressor TAB] 50 mg PO DAILY 06/28/18 06/28/18 06/27/18 21:00 History traMADol 50 mg PO Q6HR PRN 06/28/18 06/28/18 06/27/18 21:00 History 50mg Acetaminophen/Codeine [Tylenol 1 tab PO Q6H PRN #20 tab 06/30/18 Unknown Rx /Codeine # 3 tab] methylPREDNISolone [Medrol Dose 0 mg PO DAILY #1 pack 06/30/18 Unknown Rx Eduard] Butalb/Acetamin/Caff 50-325-40 1 tab PO Q6HR PRN #10 tab 09/17/18 Unknown Rx [Fioricet] Acetaminophen [Tylenol Extra 1,000 mg PO QID PRN #30 tablet 10/04/18 Unknown Rx Strength] Amoxicillin/Potassium Clav 1 each PO BID #20 tablet 10/04/18 Unknown Rx [Augmentin 875-125 Tablet] Metoclopramide [Reglan] 10 mg PO ACHS PRN #30 tablet 10/04/18 Unknown Rx diphenhydrAMINE [Benadryl CAP] 25 mg PO Q6HR PRN #30 capsule 10/04/18 Unknown Rx Dicyclomine [Bentyl] 20 mg PO QID PRN #20 tablet 12/05/18 Unknown Rx ED Physical Exam - General Limitations: No Limitations General appearance: alert, in no apparent distress - Head Head exam: Present: atraumatic, normocephalic - Eye Eye exam: Present: normal appearance - ENT ENT exam: Present: mucous membranes moist - Neck Neck exam: Present: normal inspection, full ROM - Respiratory Respiratory exam: Present: normal lung sounds bilaterally. Absent: respiratory distress, wheezes, rales, rhonchi - Cardiovascular Cardiovascular Exam: Present: regular rate, normal rhythm, normal heart sounds. Absent: systolic murmur, diastolic murmur, rubs, gallop - GI/Abdominal GI/Abdominal exam: Present: soft, normal bowel sounds. Absent: distended, tenderness, guarding, rebound - Extremities Exam Extremities exam: Present: normal inspection - Back Exam Back exam: Present: normal inspection - Neurological Exam Neurological exam: Present: alert, oriented X3 - Psychiatric Psychiatric exam: Present: depressed, flat affect - Skin Skin exam: Present: warm, dry, intact, normal color. Absent: rash ED Course Vital Signs 03/12/19 03/12/19 03/12/19 02:28 04:10 04:13 Temperature 97.4 F L 97.5 F L Pulse Rate 85 85 Respiratory 18 20 20 Rate Blood Pressure 115/78 Blood Pressure 115/74 [Right] O2 Sat by Pulse 98 98 98 Oximetry ÁNGEL score - Ángel Score Age > 65: (0) No Aspirin use within the Past 7 Days: (0) No 3 or more CAD Risk Factors: (0) No 2 or more Angina events in past 24 hrs: (0) No Known CAD with more than 50% Stenosis: (0) No Elevated Cardiac Markers: (0) No ST Deviation Greater than 0.5mm: (0) No ÁNGEL Score: 0 ED Medical Decision Making - Lab Data Result diagrams: 03/12/19 02:23 03/12/19 02:23 Laboratory Results - last 24 hr 03/12/19 03/12/19 03/12/19 02:23 02:23 02:23 WBC 8.3 RBC 3.83 Hgb 11.1 Hct 33.1 MCV 86 MCH 29 MCHC 33 RDW 13.6 Plt Count 451 H Lymph % (Auto) Feather Edger Lymph # Feather Edger Add Manual Diff Complete Total Counted 100 Seg Neuts % (Manual) 24.0 L Band Neutrophils % 0 Lymphocytes % (Manual) 75.0 H Reactive Lymphs % (Man) 0 Monocytes % (Manual) 1.0 Eosinophils % (Manual) 0 Basophils % (Manual) 0 Metamyelocytes % 0 Myelocytes % 0 Promyelocytes % 0 Blast Cells % 0 Nucleated RBC % Not Reportable Seg Neutrophils # Man 2.0 Band Neutrophils # 0.0 Lymphocytes # (Manual) 6.2 H Abs React Lymphs (Man) 0.0 Monocytes # (Manual) 0.1 Eosinophils # (Manual) 0.0 Basophils # (Manual) 0.0 Metamyelocytes # 0.0 Myelocytes # 0.0 Promyelocytes # 0.0 Blast Cells # 0.0 WBC Morphology Not Reportable TNR Hypersegmented Neuts Not Reportable Hyposegmented Neuts Not Reportable Hypogranular Neuts Not Reportable Smudge Cells Not Reportable Toxic Granulation Not Reportable Toxic Vacuolation Not Reportable Dohle Bodies Not Reportable Pelger-Huet Anomaly Not Reportable Nay Rods Not Reportable Platelet Estimate Consistent w auto Clumped Platelets Not Reportable Plt Clumps, EDTA Not Reportable Large Platelets Not Reportable Giant Platelets Not Reportable Platelet Satelliting Not Reportable Plt Morphology Comment Not Reportable RBC Morphology Not Reportable Dimorphic RBCs Not Reportable Polychromasia Not Reportable Hypochromasia Not Reportable Poikilocytosis Not Reportable Anisocytosis Not Reportable Microcytosis Not Reportable Macrocytosis Not Reportable Spherocytes Not Reportable Pappenheimer Bodies Not Reportable Sickle Cells Not Reportable Target Cells Not Reportable Tear Drop Cells Not Reportable Ovalocytes Not Reportable Helmet Cells Not Reportable [place] Bodies Not Reportable [place] Rings Not Reportable Renea Cells Not Reportable Bite Cells Not Reportable Crenated Cell Not Reportable Elliptocytes Not Reportable Acanthocytes (Spur) Not Reportable Rouleaux Not Reportable Hemoglobin C Crystals Not Reportable Schistocytes Not Reportable Malaria parasites Not Reportable Yash Bodies Not Reportable Hem Pathologist Commnt No Sodium 140 Potassium 3.6 Chloride 99.5 Carbon Dioxide 26 Anion Gap 18 BUN 10 Creatinine 1.4 H Estimated GFR 50 BUN/Creatinine Ratio 7 Glucose 144 H Calcium 9.4 Troponin T < 0.010 - EKG Data -: EKG Interpreted by Me EKG shows normal: sinus rhythm, axis, intervals, QRS complexes, ST-T waves Rate: normal - Radiology Data Radiology results: report reviewed Chest radiograph: No acute process according to radiology report - Medical Decision Making Mrs. Pedro presents with chest pain which awakened her from sleep. No indication of ACS or pulmonary embolism. I do not suspect a life-threatening causes of chest pain such as aortic dissection or pneumothorax. She'll follow with her senior investment manager today as previously appointed. Discharged home in stable condition. GERD is a consideration with previous history of GI issues. Critical care attestation.: If time is entered above; I have spent that time in minutes in the direct care of this critically ill patient, excluding procedure time. ED Disposition Clinical Impression: Chest pain Disposition: DC-01 TO HOME OR SELFCARE Is pt being admited?: No Does the pt Need Aspirin: No Condition: Stable Instructions: Chest Pain (ED) Additional Instructions: Please inform your senior investment manager that you were evaluated for chest pain here in the ER today
[2019-03-12 06:35] VITALS: BP 114/80
== END 2019-03-12 07:14 | disposition home or self-care (01) ==
LOC: ED 02:13
DX: R07.89 Other chest pain (principal); I12.9 Hypertensive chronic kidney disease with stage 1 through stage 4 chronic kidney disease, or unspecified chronic kidney disease; E11.22 Type 2 diabetes mellitus with diabetic chronic kidney disease; N18.3 Chronic kidney disease, stage 3 (moderate); M19.90 Unspecified osteoarthritis, unspecified site; G43.909 Migraine, unspecified, not intractable, without status migrainosus; F31.9 Bipolar disorder, unspecified; F41.0 Panic disorder [episodic paroxysmal anxiety]; J45.909 Unspecified asthma, uncomplicated; E11.40 Type 2 diabetes mellitus with diabetic neuropathy, unspecified; E03.9 Hypothyroidism, unspecified; E78.00 Pure hypercholesterolemia, unspecified; Z86.73 Personal history of transient ischemic attack (TIA), and cerebral infarction without residual deficits; Z79.4 Long term (current) use of insulin; Z79.899 Other long term (current) drug therapy; Z88.8 Allergy status to other drugs, medicaments and biological substances; Z88.6 Allergy status to analgesic agent; Z91.040 Latex allergy status
CPT/HCPCS: 36415; 71045; 80048; 84484; 85007; 85025; 93005; 93010; 99284; Q0162

== ENCOUNTER 2019-03-17 16:58 | Emergency (ER) | payer MEDICARE ==
--- NOTE | 2019-03-17 17:20 | Event Note ---
ED Screening Note ED Screening Note: pt presents with right sided CP that began at 9 AM this morning no N/V/D no fever no urinary sx LNMP February 13 states breathing hurts no cough states she has had LE edema PMHx DM, HTN, CKD, TIA, arthritis no cardiac problems This initial assessment/diagnostic orders/clinical plan/treatment(s) is/are subject to change based on patients health status, clinical progression and re- assessment by fellow clinical providers in the ED. Further treatment and workup at subsequent clinical providers discretion. Patient/guardian urged not to elope from the ED as their condition may be serious if not clinically assessed and managed. Initial orders include: CP protocol
[2019-03-17 18:27] LABS: Basophils # (Auto) 0.1 K/mm3 (0.0-0.1); Basophils % (Auto) 1.1 % (0.0-1.8); Eosinophils # (Auto) 0.1 K/mm3 (0.0-0.4); Eosinophils % (Auto) 1.5 % (0.0-4.3); Hematocrit 31.9 % (30.3-42.9); Hemoglobin 10.5 gm/dl (10.1-14.3); Lymphocytes # (Auto) 4.5 K/mm3 (1.2-5.4); Lymphocytes % (Auto) 53.2 % (13.4-35.0); Mean Corpuscular HGB Conc 33 % (30-34); Mean Corpuscular Volume 88 fl (79-97); Monocytes # (Auto) 0.4 K/mm3 (0.0-0.8); Monocytes % (Auto) 5.1 % (0.0-7.3); Platelet Count 415 K/mm3 (140-440); Red Blood Count 3.61 M/mm3 (3.65-5.03); Red Cell Distribution Width 14.1 % (13.2-15.2)
[2019-03-17 18:45] LABS: INR 1.03 (0.87-1.13)
[2019-03-17 19:12] LABS: BUN/Creatinine Ratio 5; Blood Urea Nitrogen 7 mg/dL (7-17); Calcium 9.6 mg/dL (8.4-10.2); Hemolysis Index 53
--- NOTE | 2019-03-17 21:55 | XRay Report ---
PROCEDURE: XR CHEST ROUTINE 2V TECHNIQUE: PA and lateral chest radiographs were obtained. HISTORY: Chest Pain COMPARISONS: Chest x-ray dated March 12, 2019. FINDINGS: There is bilateral hypoinflation similar in appearance to the previous study. There is no evidence of focal infiltrate, pneumothorax or pleural fluid collection. The cardiomediastinal silhouette is normal in appearance. The bony structures are unremarkable. IMPRESSION: 1. No evidence of an acute pulmonary process. This document is electronically signed by Rosa Xie MD., March 17 2019 09:52:49 PM ET
--- NOTE | 2019-03-17 23:48 | Emergency Department Report ---
ED Chest Pain HPI - General Chief Complaint: Abdominal Pain Stated Complaint: CHEST/L SIDE PAIN/ABIGAIL Time Seen by Provider: 03/17/19 17:16 Source: patient Mode of arrival: Wheelchair Limitations: No Limitations - History of Present Illness Initial Comments: 43-year-old female with multiple medical problems presents to ED with complaint of right chest pain and generalized body pain. States pain started on yesterday. Patient reports sharp pains that radiate back and forth across the anterior chest from right to left, and then from left to right. She denies shortness of breath, fever, cough. Patient reports swelling to bilateral knees, not lower legs as stated in screening note, that started this afternoon because she states she had to walk up a hill twice today, when going and coming from the store. Reports history of arthritis. Patient has a list of medical history with her which includes: Bipolar disorder, seizures, depression, anxiety, sleep apnea, asthma, hypothyroidism, diabetes, lupus, neuropathy, migraines, fibromyalgia, gastroparesis, patellofemoral pain syndrome, endometriosis, chronic kidney disease, costochondritis, TIA PCP: Suze Flanagan MD Complaint: chest pain -: days(s) (2) Onset: during rest Pain Location: left chest, right chest Pain Radiation: other (back and forth across chest) Severity: moderate Quality: sharp Consistency: constant Improves With: remaining still Worsens With: inspiration, palpation, movement re: denies: nausea, vomting, dyspnea Other Symptoms: denies: cough, fever, leg swelling - Related Data Home Medications Medication Instructions Recorded Confirmed Last Taken Fluticasone/Salmeterol [Advair 2 puff INHALATION PRN PRN 04/10/14 06/28/18 06/25/18 08:00 Diskus 250-50 mcg] 2 puffs Simvastatin 1 tab PO DAILY 04/10/14 06/28/18 06/27/18 21:00 SUMAtriptan SUCCINATE [Imitrex] 100 mg PO Q6H PRN 03/10/15 06/28/18 06/18/18 17:00 100mg Ferrous Sulfate [Feosol 325 MG tab] 325 mg PO QDAY 08/10/16 06/28/18 06/27/18 21:00 325mg Riboflavin (Vitamin B2) 400 mg PO QDAY 08/10/16 06/28/18 06/27/18 21:00 [Riboflavin] Amitriptyline [Elavil] 100 mg PO QHS 12/10/17 06/28/18 06/27/18 21:00 Chlorzoxazone 500 mg PO DAILY 12/10/17 06/28/18 06/27/18 21:00 500mg Dexlansoprazole [Dexilant] 60 mg PO QDAY 12/10/17 06/28/18 06/27/18 21:00 60mg Duloxetine HCl [DULoxetine] 60 mg PO DAILY 12/10/17 06/28/18 06/27/18 21:00 60mg Losartan [Cozaar] 100 mg PO QDAY 12/10/17 06/28/18 06/27/18 21:00 Lubiprostone (Nf) [Amitiza (Nf)] 24 mcg PO DAILY 12/10/17 06/28/18 06/27/18 21:00 Lurasidone HCl [Latuda] 120 mg PO QDAY 12/10/17 06/28/18 06/27/18 21:00 Pregabalin [Lyrica] 150 mg PO DAILY 12/10/17 06/28/18 06/27/18 21:00 150mg Tizanidine HCl [tiZANidine] 2 mg PO DAILY 12/10/17 06/28/18 06/27/18 21:00 clonazePAM [Klonopin] 0.5 mg PO DAILY 12/10/17 06/28/18 06/27/18 08:00 Hydroxychloroquine 200 mg PO DAILY 06/28/18 06/28/18 06/27/18 21:00 200mg Linaclotide (Nf) [Linzess (Nf)] 290 mg PO Q6HR PRN 06/28/18 06/28/18 06/20/18 08:00 290mg Menthol/Camphor [[place] 1 applicatio TP Q6HR PRN 06/28/18 06/28/18 06/27/18 21:00 Ointment] Metoprolol [Lopressor TAB] 50 mg PO DAILY 06/28/18 06/28/18 06/27/18 21:00 traMADol 50 mg PO Q6HR PRN 06/28/18 06/28/18 06/27/18 21:00 50mg Previous Rx's Medication Instructions Recorded Last Taken Type Topiramate [Topamax] 200 mg PO DAILY #14 tablet 08/12/16 06/27/18 21:00 Rx 200mg Levothyroxine Sodium 137 mcg PO QAM #30 tablet 02/28/18 06/28/18 04:00 Rx [Levothyroxine] Acetaminophen/Codeine [Tylenol 1 tab PO Q6H PRN #20 tab 06/30/18 Unknown Rx /Codeine # 3 tab] methylPREDNISolone [Medrol Dose 0 mg PO DAILY #1 pack 06/30/18 Unknown Rx Eduard] Butalb/Acetamin/Caff 50-325-40 1 tab PO Q6HR PRN #10 tab 09/17/18 Unknown Rx [Fioricet] Acetaminophen [Tylenol Extra 1,000 mg PO QID PRN #30 tablet 10/04/18 Unknown Rx Strength] Amoxicillin/Potassium Clav 1 each PO BID #20 tablet 10/04/18 Unknown Rx [Augmentin 875-125 Tablet] Metoclopramide [Reglan] 10 mg PO ACHS PRN #30 tablet 10/04/18 Unknown Rx diphenhydrAMINE [Benadryl CAP] 25 mg PO Q6HR PRN #30 capsule 10/04/18 Unknown Rx Dicyclomine [Bentyl] 20 mg PO QID PRN #20 tablet 12/05/18 Unknown Rx Allergies Allergy/AdvReac Type Severity Reaction Status Date / Time aspirin Allergy Hives Verified 01/20/18 07:51 butorphanol tartrate Allergy Seizure Verified 01/20/18 07:51 [From Stadol] latex Allergy Hives Verified 01/20/18 07:51 NSAIDS (Non-Steroidal Allergy Hives Verified 01/20/18 07:51 Anti-Inflamma Heart Score - HEART Score History: Slightly suspicious EKG: Non-specific Age: < 45 Risk factors: 1-2 risk factors Troponin: < normal limit HEART Score: 2 ED Review of Systems ROS: Stated complaint: CHEST/L SIDE PAIN/ABIGAIL Other details as noted in HPI Comment: All other systems reviewed and negative Constitutional: denies: chills, fever Respiratory: denies: cough, shortness of breath Cardiovascular: chest pain Gastrointestinal: denies: nausea, vomiting Musculoskeletal: joint swelling (bilat knees), arthralgia (bilat knees) ED Past Medical Hx - Past Medical History Previous Medical History?: Yes Hx Hypertension: Yes Hx CVA: Yes (TIA) Hx Heart Attack/AMI: No Hx Congestive Heart Failure: No Hx Diabetes: Yes Hx Deep Vein Thrombosis: No Hx Pulmonary Embolism: No Hx GERD: No Hx Liver Disease: No Hx Renal Disease: No Hx Sickle Cell Disease: No Hx Arthritis: Yes (knees and back) Hx Headaches / Migraines: Yes Hx Seizures: Yes Hx Kidney Stones: Yes (Stage 3 CKD) Hx Psychiatric Treatment: Yes (Bipolar, Panic Attacks) Hx Asthma: Yes Hx COPD: No Hx Tuberculosis: No Hx Dementia: No Hx HIV: No Additional medical history: lupus, Gastroparesis, Neuropathy,. high cholesterol, Endometriosis,. bipolar, Fibromylagia, Thyroid disease,. depression. anxiety PANIC ATTACK, corporal tunnel syndrome. Hypothyroidism - Surgical History Past Surgical History?: Yes Hx Coronary Stent: No Hx Open Heart Surgery: No Hx Pacemaker: No Hx Internal Defibrillator: No Hx Cholecystectomy: No Hx Appendectomy: No Hx Breast Surgery: No Additional Surgical History: "rectal repair" after vaginal delivery. lump removed from right arm - Social History Smoking Status: Never Smoker Substance Use Type: Prescribed - Medications Home Medications: Home Medications Medication Instructions Recorded Confirmed Last Taken Type Fluticasone/Salmeterol [Advair 2 puff INHALATION PRN PRN 04/10/14 06/28/18 06/25/18 08:00 History Diskus 250-50 mcg] 2 puffs Simvastatin 1 tab PO DAILY 04/10/14 06/28/18 06/27/18 21:00 History SUMAtriptan SUCCINATE [Imitrex] 100 mg PO Q6H PRN 03/10/15 06/28/18 06/18/18 17:00 History 100mg Ferrous Sulfate [Feosol 325 MG tab] 325 mg PO QDAY 08/10/16 06/28/18 06/27/18 21:00 History 325mg Riboflavin (Vitamin B2) 400 mg PO QDAY 08/10/16 06/28/18 06/27/18 21:00 History [Riboflavin] Topiramate [Topamax] 200 mg PO DAILY #14 tablet 08/12/16 06/28/18 06/27/18 21:00 Rx 200mg Amitriptyline [Elavil] 100 mg PO QHS 12/10/17 06/28/18 06/27/18 21:00 History Chlorzoxazone 500 mg PO DAILY 12/10/17 06/28/18 06/27/18 21:00 History 500mg Dexlansoprazole [Dexilant] 60 mg PO QDAY 12/10/17 06/28/18 06/27/18 21:00 History 60mg Duloxetine HCl [DULoxetine] 60 mg PO DAILY 12/10/17 06/28/18 06/27/18 21:00 History 60mg Losartan [Cozaar] 100 mg PO QDAY 12/10/17 06/28/18 06/27/18 21:00 History Lubiprostone (Nf) [Amitiza (Nf)] 24 mcg PO DAILY 12/10/17 06/28/18 06/27/18 21:00 History Lurasidone HCl [Latuda] 120 mg PO QDAY 12/10/17 06/28/18 06/27/18 21:00 History Pregabalin [Lyrica] 150 mg PO DAILY 12/10/17 06/28/18 06/27/18 21:00 History 150mg Tizanidine HCl [tiZANidine] 2 mg PO DAILY 12/10/17 06/28/18 06/27/18 21:00 History clonazePAM [Klonopin] 0.5 mg PO DAILY 12/10/17 06/28/18 06/27/18 08:00 History Levothyroxine Sodium 137 mcg PO QAM #30 tablet 02/28/18 06/28/18 06/28/18 04:00 Rx [Levothyroxine] Hydroxychloroquine 200 mg PO DAILY 06/28/18 06/28/18 06/27/18 21:00 History 200mg Linaclotide (Nf) [Linzess (Nf)] 290 mg PO Q6HR PRN 06/28/18 06/28/18 06/20/18 08:00 History 290mg Menthol/Camphor [[place] 1 applicatio TP Q6HR PRN 06/28/18 06/28/18 06/27/18 21:00 History Ointment] Metoprolol [Lopressor TAB] 50 mg PO DAILY 06/28/18 06/28/18 06/27/18 21:00 History traMADol 50 mg PO Q6HR PRN 06/28/18 06/28/18 06/27/18 21:00 History 50mg Acetaminophen/Codeine [Tylenol 1 tab PO Q6H PRN #20 tab 06/30/18 Unknown Rx /Codeine # 3 tab] methylPREDNISolone [Medrol Dose 0 mg PO DAILY #1 pack 06/30/18 Unknown Rx Eduard] Butalb/Acetamin/Caff 50-325-40 1 tab PO Q6HR PRN #10 tab 09/17/18 Unknown Rx [Fioricet] Acetaminophen [Tylenol Extra 1,000 mg PO QID PRN #30 tablet 10/04/18 Unknown Rx Strength] Amoxicillin/Potassium Clav 1 each PO BID #20 tablet 10/04/18 Unknown Rx [Augmentin 875-125 Tablet] Metoclopramide [Reglan] 10 mg PO ACHS PRN #30 tablet 10/04/18 Unknown Rx diphenhydrAMINE [Benadryl CAP] 25 mg PO Q6HR PRN #30 capsule 10/04/18 Unknown Rx Dicyclomine [Bentyl] 20 mg PO QID PRN #20 tablet 12/05/18 Unknown Rx ED Physical Exam - General Limitations: No Limitations General appearance: alert, in no apparent distress, obese - Head Head exam: Present: atraumatic, normocephalic - Eye Eye exam: Present: normal appearance - ENT ENT exam: Present: mucous membranes moist - Neck Neck exam: Present: normal inspection - Respiratory Respiratory exam: Present: normal lung sounds bilaterally, chest wall tenderness (no bruising/ crepitus/ rash present). Absent: respiratory distress - Cardiovascular Cardiovascular Exam: Present: regular rate, normal rhythm - GI/Abdominal GI/Abdominal exam: Present: soft. Absent: distended, tenderness - Extremities Exam Extremities exam: Present: normal inspection, other (no lower extremity edema present). Absent: joint swelling, calf tenderness - Neurological Exam Neurological exam: Present: alert, oriented X3 - Psychiatric Psychiatric exam: Present: normal affect, normal mood - Skin Skin exam: Present: warm, dry, intact, normal color ED Course Vital Signs 03/17/19 03/18/19 17:00 00:14 Temperature 97.8 F 98.1 F Pulse Rate 94 H 87 Respiratory 18 21 Rate Blood Pressure 126/86 Blood Pressure 128/83 [Left] O2 Sat by Pulse 97 100 Oximetry ÁNGEL score - Ángel Score Age > 65: (0) No Aspirin use within the Past 7 Days: (0) No 3 or more CAD Risk Factors: (0) No 2 or more Angina events in past 24 hrs: (0) No Known CAD with more than 50% Stenosis: (0) No Elevated Cardiac Markers: (0) No ST Deviation Greater than 0.5mm: (0) No ÁNGEL Score: 0 ED Medical Decision Making - Lab Data Result diagrams: 03/17/19 18:00 03/17/19 18:00 - EKG Data -: EKG Interpreted by Me EKG shows normal: sinus rhythm, axis, intervals, QRS complexes Rate: normal - EKG Data When compared to previous EKG there are: no significant change (compared to 06/2018) Interpretation: nonspecific ST-T wave ayaz, other - Radiology Data Radiology results: report reviewed, image reviewed - Medical Decision Making - reports anterior chest pain since yesterday - pt exquisitely tender to plpation on exam - vitals normal, O2 sats normal, pt in no resp distress, HR normal, appears nontoxic - no calf tenderness or lower extremity swelling - very low suspicion for PE - EKG normal, trop negative x2, very low suspicion for ACS - CXR normal - likely costochondritis, one of pt's listed conditions - return precautions given - PCP f/u advised - Differential Diagnosis chest wall pain, pneumonia, GERD Critical care attestation.: If time is entered above; I have spent that time in minutes in the direct care of this critically ill patient, excluding procedure time. ED Disposition Clinical Impression: Costochondritis Disposition: - TO HOME OR SELFCARE Is pt being admited?: No Condition: Stable Instructions: Costochondritis (ED) Referrals: PRIMARY CARE, [Referring] - 3-5 Days Time of Disposition: 00:18
[2019-03-18 00:16] VITALS: BP 128/83
== END 2019-03-18 01:02 | disposition home or self-care (01) ==
LOC: ED 16:58
DX: M94.0 Chondrocostal junction syndrome [Tietze] (principal); M19.90 Unspecified osteoarthritis, unspecified site; G43.909 Migraine, unspecified, not intractable, without status migrainosus; F31.9 Bipolar disorder, unspecified; J45.909 Unspecified asthma, uncomplicated; I13.0 Hypertensive heart and chronic kidney disease with heart failure and stage 1 through stage 4 chronic kidney disease, or unspecified chronic kidney disease; E11.22 Type 2 diabetes mellitus with diabetic chronic kidney disease; N18.3 Chronic kidney disease, stage 3 (moderate); I50.9 Heart failure, unspecified; E11.43 Type 2 diabetes mellitus with diabetic autonomic (poly)neuropathy; K31.84 Gastroparesis; E78.00 Pure hypercholesterolemia, unspecified; E03.9 Hypothyroidism, unspecified; Z79.899 Other long term (current) drug therapy; Z88.6 Allergy status to analgesic agent; Z91.040 Latex allergy status; Z88.8 Allergy status to other drugs, medicaments and biological substances
CPT/HCPCS: 36415; 71046; 80048; 83880; 84484; 84703; 85025; 85610; 85730; 93005; 93010

== ENCOUNTER 2019-03-18 10:59 | Inpatient (IN) | payer MEDICARE ==
--- NOTE | 2019-03-18 11:32 | XRay Report ---
AP CHEST: HISTORY: chest pain AP view of the chest demonstrates a normal mediastinal and cardiac contour with clear lungs and normal bony and soft tissue structures. IMPRESSION: Unremarkable AP chest.
[2019-03-18] MEDS ORDERED: SUBLIMAZE IV ONE (11:33)
[2019-03-18] MEDS ORDERED: ZOFRAN IV ONE (11:33)
[2019-03-18] MEDS ORDERED: PLAVIX PO ONE (11:34)
[2019-03-18 11:37] LABS: Basophils % (Auto) 0.3 % (0.0-1.8); Eosinophils # (Auto) 0.1 K/mm3 (0.0-0.4); Eosinophils % (Auto) 2.2 % (0.0-4.3); Hematocrit 30.4 % (30.3-42.9); Hemoglobin 10.1 gm/dl (10.1-14.3); Lymphocytes # (Auto) 2.9 K/mm3 (1.2-5.4); Lymphocytes % (Auto) 46.5 % (13.4-35.0); Mean Corpuscular HGB Conc 33 % (30-34); Mean Corpuscular Volume 88 fl (79-97); Monocytes # (Auto) 0.4 K/mm3 (0.0-0.8); Monocytes % (Auto) 6.5 % (0.0-7.3); Platelet Count 403 K/mm3 (140-440); Red Blood Count 3.47 M/mm3 (3.65-5.03); Red Cell Distribution Width 13.9 % (13.2-15.2)
--- NOTE | 2019-03-18 11:40 | Emergency Department Report ---
HPI - General Chief Complaint: Chest Pain Time Seen by Provider: 03/18/19 11:20 - HPI HPI: Room 6 The patient is a 43-year-old female presenting with a chief complaint of chest pain. Patient states she's had constant pain in the right and left chest for the past days. Patient states pain is sharp and constant in nature associated with diaphoresis. Patient denies shortness of breath or nausea/vomiting. The patient states she came to the ED yesterday and diagnosed with costochondritis. Patient returns to the ED stating her pain is persistent and she currently gives it a score of 7.5/10. The patient states her last stress test occur [facility] 5 years ago and she's never had a cardiac catheterization Location: [See above] Duration: [See above] Quality: [See above] Severity: [See above] Modifying factors: [see above] Context: [see above] Mode of transportation: [not driving] ED Past Medical Hx - Past Medical History Previous Medical History?: Yes Hx Hypertension: Yes Hx CVA: Yes (TIA) Hx Diabetes: Yes Hx Arthritis: Yes (knees and back) Hx Headaches / Migraines: Yes Hx Seizures: Yes Hx Kidney Stones: Yes (Stage 3 CKD) Hx Psychiatric Treatment: Yes (Bipolar, Panic Attacks) Hx Asthma: Yes Additional medical history: lupus, Gastroparesis, Neuropathy,. high cholesterol, Endometriosis,. bipolar, Fibromylagia, Thyroid disease,. depression. anxiety PANIC ATTACK, corporal tunnel syndrome. Hypothyroidism - Surgical History Past Surgical History?: Yes Additional Surgical History: "rectal repair" after vaginal delivery. lump removed from right arm - Family History Family history: no significant - Social History Smoking Status: Never Smoker Substance Use Type: None (denies illicit drug use) - Medications Home Medications: Home Medications Medication Instructions Recorded Confirmed Last Taken Type Fluticasone/Salmeterol [Advair 2 puff INHALATION PRN PRN 04/10/14 06/28/18 06/25/18 08:00 History Diskus 250-50 mcg] 2 puffs Simvastatin 1 tab PO DAILY 04/10/14 06/28/18 06/27/18 21:00 History Topiramate [Topamax] 200 mg PO DAILY #14 tablet 08/12/16 06/28/18 06/27/18 21:00 Rx 200mg Amitriptyline [Elavil] 100 mg PO QHS 12/10/17 06/28/18 06/27/18 21:00 History Duloxetine HCl [DULoxetine] 60 mg PO DAILY 12/10/17 06/28/18 06/27/18 21:00 Hi story 60mg Lurasidone HCl [Latuda] 120 mg PO QDAY 12/10/17 06/28/18 06/27/18 21:00 History Linaclotide (Nf) [Linzess (Nf)] 290 mg PO Q6HR PRN 06/28/18 06/28/18 06/20/18 08:00 History 290mg Ca/D3/Mag Ox/Zinc/Video Game [employer]ester/Trung/Bor 2 each PO DAILY 03/18/19 03/18/19 03/17/19 History [[facility] Calcium 600-D3 Plus Tablet] Ergocalciferol [Vitamin D2] 1 cap PO QWEEK 03/18/19 03/18/19 Unknown History Hydroxychloroquine [Plaquenil] 200 mg PO QDAY 03/18/19 03/18/19 03/17/19 History Levothyroxine [Synthroid] 300 mcg PO QDAY 03/18/19 03/18/19 03/17/19 History Liothyronine Sodium [Cytomel] 5 mcg PO QDAY 03/18/19 03/18/19 03/17/19 History Meclizine [Antivert] 25 mg PO TID 03/18/19 03/18/19 Unknown History Metoprolol Xl [Metoprolol 50 mg PO QDAY 03/18/19 03/18/19 03/17/19 History SUCCINATE ER TAB] Pregabalin [Lyrica] 75 mg PO BID 03/18/19 03/18/19 03/17/19 History SUMAtriptan SUCCINATE [Imitrex] 100 mg PO ONCE PRN 03/18/19 03/18/19 Unknown History Trazodone HCl 150 mg PO DAILY@2100 03/18/19 03/18/19 03/17/19 History amLODIPine [Norvasc] 10 mg PO DAILY 03/18/19 03/18/19 03/17/19 History clonazePAM [Klonopin] 1 mg PO DAILY PRN 03/18/19 03/18/19 03/17/19 History diphenhydrAMINE [Benadryl CAP] 50 mg PO DAILY@2100 03/18/19 03/18/19 03/17/19 History hydroCHLOROthiazide [HCTZ] 25 mg PO QDAY 03/18/19 03/18/19 03/17/19 History ED Review of Systems ROS: Stated complaint: CHEST PAIN Other details as noted in HPI Constitutional: diaphoresis Eyes: denies: eye pain ENT: denies: throat pain Respiratory: denies: shortness of breath Cardiovascular: chest pain Endocrine: no symptoms reported Gastrointestinal: denies: nausea, vomiting Genitourinary: denies: dysuria Musculoskeletal: back pain Neurological: denies: headache Physical Exam - Physical Exam Physical Exam: GENERAL: The patient is well-developed well-nourished female lying on stretcher not appearing to be in acute distress. [] HEENT: Normocephalic. Atraumatic. Extraocular motions are intact. Patient has moist mucous membranes. NECK: Supple. Trachea midline CHEST/LUNGS: Clear to auscultation. There is no respiratory distress noted. HEART/CARDIOVASCULAR: Regular. There is no tachycardia. There is no gallop rub or murmur. ABDOMEN: Abdomen is soft, nontender. Patient has normal bowel sounds. There is no abdominal distention. SKIN: There is no rash. There is no edema. There is no diaphoresis. NEURO: The patient is awake, alert, and oriented. The patient is cooperative. The patient has normal speech MUSCULOSKELETAL: There is no evidence of acute injury. ED Medical Decision Making - Lab Data Result diagrams: 03/18/19 11:17 03/18/19 11:17 Laboratory Tests 03/18/19 03/18/19 03/18/19 11:17 11:17 11:45 WBC 6.2 RBC 3.47 L Hgb 10.1 Hct 30.4 MCV 88 MCH 29 MCHC 33 RDW 13.9 Plt Count 403 Lymph % (Auto) 46.5 H [place] % (Auto) 6.5 Eos % (Auto) 2.2 Baso % (Auto) 0.3 Lymph # 2.9 [place] # 0.4 Eos # 0.1 Baso # 0.0 Seg Neutrophils % 44.5 Seg Neutrophils # 2.7 D-Dimer 217.94 Sodium 144 Potassium 3.5 L Chloride 101.5 Carbon Dioxide 24 Anion Gap 22 BUN 9 Creatinine 1.5 H Estimated GFR 46 BUN/Creatinine Ratio 6 Glucose 137 H Calcium 9.2 Troponin T < 0.010 - EKG Data -: EKG Interpreted by Me EKG shows normal: sinus rhythm Rate: normal - EKG Data When compared to previous EKG there are: no significant change Interpretation: unchanged when compared t (03/12/2019) - Radiology Data Radiology results: report reviewed (chest x-ray), image reviewed (chest x-ray) interpreted by me: Chest x-ray-no focal infiltrates, no pneumothorax [facility] [address] [place] [address] XRay Report Signed Patient: BERT MISTRY MR#: [id number] : 1975 Acct:[id number] Age/Sex: 43 / F ADM Date: 03/18/19 Loc: ED Attending Dr: Ordering Physician: MING VALDERRAMA MD Date of Service: 03/18/19 Procedure(s): XR chest 1V ap Accession Number(s): [id number] cc: MING VALDERRAMA MD Fluoro Time In Minutes: AP CHEST: HISTORY: chest pain AP view of the chest demonstrates a normal mediastinal and cardiac contour with clear lungs and normal bony and soft tissue structures. IMPRESSION: Unremarkable AP chest. Transcribed By: TTR Dictated By: HIRA TORRES JR, MD Electronically Authenticated By: HIRA TORRES JR, MD Signed Date/Time: 03/18/191126 DD/ 26 TD/TT: 03/18/191126 - Differential Diagnosis ACS, PE, pericarditis, GERD Critical care attestation.: If time is entered above; I have spent that time in minutes in the direct care of this critically ill patient, excluding procedure time. ED Disposition Clinical Impression: Chest pain Disposition: 09 OP ADMIT IP TO THIS HOSP Is pt being admited?: Yes Does the pt Need Aspirin: No Condition: Fair Instructions: Chest Pain (ED) Referrals: INOCENTE ESTES MD [Primary Care Provider] - 3-5 Days Time of Disposition: 12:47 (hospitalist paged (Dr Echeverria))
[2019-03-18 12:44] LABS: BUN/Creatinine Ratio 6; Blood Urea Nitrogen 9 mg/dL (7-17); Calcium 9.2 mg/dL (8.4-10.2); Hemolysis Index 41
--- NOTE | 2019-03-18 15:29 | Event Note ---
Date: 03/18/19 Chest pain for 2 days Tenderness on palpation R costochondral junction Diagnosi Costochondritis Meloxicam 7.5 mg po BID F/u with [facility] for stress test
[2019-03-18 16:38] VITALS: BP 116/83
== END 2019-03-18 16:40 | disposition home or self-care (01) | DRG 206 ==
LOC: ED 10:59 → 4A 12:49
PROVIDERS: ADMIT Internal Medicine; ATTEND Internal Medicine
DX: M94.0 Chondrocostal junction syndrome [Tietze] (principal); N18.3 Chronic kidney disease, stage 3 (moderate); I12.9 Hypertensive chronic kidney disease with stage 1 through stage 4 chronic kidney disease, or unspecified chronic kidney disease; F31.9 Bipolar disorder, unspecified; E03.9 Hypothyroidism, unspecified; F41.9 Anxiety disorder, unspecified; E11.22 Type 2 diabetes mellitus with diabetic chronic kidney disease; E11.43 Type 2 diabetes mellitus with diabetic autonomic (poly)neuropathy; K31.84 Gastroparesis; G43.909 Migraine, unspecified, not intractable, without status migrainosus; Z79.899 Other long term (current) drug therapy; Z86.73 Personal history of transient ischemic attack (TIA), and cerebral infarction without residual deficits; Z79.84 Long term (current) use of oral hypoglycemic drugs
CPT/HCPCS: 36415; 71045; 71046; 80048; 83880; 84484; 84703; 85025; 85379; 85610; 85730; 93005; 93010; 96374; 96375; G0378; J2405; J3010

== ENCOUNTER 2019-04-07 17:23 | Observation (INO) | payer MEDICARE ==
--- NOTE | 2019-04-07 17:40 | Event Note ---
ED Screening Note Date of service: 04/07/19 Time: 17:36 ED Screening Note: 43 y/o female comes in for pain under her left breast and spine. Has a history of Lupus. Dr. Loren Mark. Have followed up with her cardiology. Has not taking anything for pain. This initial assessment/diagnostic orders/clinical plan/treatment(s) is/are subject to change based on patients health status, clinical progression and re- assessment by fellow clinical providers in the ED. Further treatment and workup at subsequent clinical providers discretion. Patient/guardian urged not to elope from the ED as their condition may be serious if not clinically assessed and managed. Initial orders include:
--- NOTE | 2019-04-07 18:23 | XRay Report ---
CHEST 2 VIEWS 1805 INDICATION / CLINICAL INFORMATION: chest pain and back pain.. COMPARISON: 03/18/2019 FINDINGS: SUPPORT DEVICES: None. HEART / MEDIASTINUM: No significant abnormality. LUNGS / PLEURA: No significant pulmonary or pleural abnormality. No pneumothorax. ADDITIONAL FINDINGS: No significant additional findings. IMPRESSION: No significant acute abnormality Signer Name: Rafael Maloney MD Signed: 04/07/2019 6:18 PM Workstation Name: [id number]
[2019-04-07 19:09] LABS: Basophils # (Auto) 0.1 K/mm3 (0.0-0.1); Basophils % (Auto) 0.6 % (0.0-1.8); Eosinophils # (Auto) 0.2 K/mm3 (0.0-0.4); Eosinophils % (Auto) 2.5 % (0.0-4.3); Hemoglobin 10.9 gm/dl (10.1-14.3); Lymphocytes # (Auto) 3.9 K/mm3 (1.2-5.4); Lymphocytes % (Auto) 40.5 % (13.4-35.0); Mean Corpuscular HGB Conc 33 % (30-34); Mean Corpuscular Volume 90 fl (79-97); Monocytes # (Auto) 0.4 K/mm3 (0.0-0.8); Monocytes % (Auto) 4.6 % (0.0-7.3); Platelet Count 499 K/mm3 (140-440); Red Blood Count 3.69 M/mm3 (3.65-5.03); Red Cell Distribution Width 14.7 % (13.2-15.2)
[2019-04-07 19:30] LABS: Alanine Aminotransferase 30 units/L (7-56); Albumin 4.1 g/dL (3.9-5); BUN/Creatinine Ratio 10; Blood Urea Nitrogen 13 mg/dL (7-17); Calcium 9.7 mg/dL (8.4-10.2); Hemolysis Index 5
[2019-04-07] MEDS ORDERED: SUBLIMAZE IV ONE ×2 (20:14)
[2019-04-07] MEDS ORDERED: ZOFRAN IV ONE (20:14)
[2019-04-07] MEDS ORDERED: NITRO-BID 2% TP ONE (20:14)
[2019-04-07] MEDS ORDERED: PLAVIX PO ONE (20:15)
--- NOTE | 2019-04-07 20:21 | Emergency Department Report ---
HPI - General Chief Complaint: Urogenital-Female Time Seen by Provider: 04/07/19 20:07 - HPI HPI: Room 5 The patient is a 43-year-old female presenting with chief complaint of chest pain. The patient states her proximal 16:00 she developed left-sided chest pain sharp and constant in nature. The patient states she placed an ice pack on her chest but it did not help. Patient admits to shortness of breath and nausea but denies vomiting or diaphoresis. Patient admits to pleurisy. She denies cough or recent flights/long car trips. Patient currently gives her pain score of 8/10. The patient states her last stress test occurred approximately 1-2 years ago but she's never had a cardiac catheterization Location: Left chest Duration: [See above] Quality: [See above] Severity: 810 Modifying factors: [see above] Context: [see above] Mode of transportation: [not driving] ED Past Medical Hx - Past Medical History Hx Hypertension: Yes Hx CVA: Yes (TIA) Hx Diabetes: Yes Hx Arthritis: Yes (knees and back) Hx Headaches / Migraines: Yes Hx Seizures: Yes Hx Kidney Stones: Yes (Stage 3 CKD) Hx Psychiatric Treatment: Yes (Bipolar, Panic Attacks) Hx Asthma: Yes Additional medical history: lupus, Gastroparesis, Neuropathy,. high cholesterol, Endometriosis,. bipolar, Fibromylagia, Thyroid disease,. depression. anxiety PANIC ATTACK, corporal tunnel syndrome. Hypothyroidism - Surgical History Additional Surgical History: "rectal repair" after vaginal delivery. lump removed from right arm - Family History Family history: no significant - Social History Smoking Status: Never Smoker Substance Use Type: None (denies illicit drug use), Alcohol (occasional) - Medications Home Medications: Home Medications Medication Instructions Recorded Confirmed Last Taken Type Amitriptyline HCl 150 mg PO DAILY 04/07/19 04/07/19 Unknown History Amlodipine Besylate [Norvasc] 10 mg PO DAILY 04/07/19 04/07/19 Unknown History Calcium Carbonate/Vitamin D3 1 tab PO BID 04/07/19 04/07/19 Unknown History [Calcium 600-Vit D3 800 Caplet] Dexlansoprazole [Dexilant] 1 tab PO DAILY 04/07/19 04/07/19 Unknown History Dicyclomine [Bentyl] 20 mg PO QID 04/07/19 04/07/19 Unknown History Duloxetine HCl [Cymbalta] 1 tab PO DAILY 04/07/19 04/07/19 Unknown History Ergocalciferol (Vitamin D2) 50,000 unit PO 1XW 04/07/19 04/07/19 Unknown History [Vitamin D2] Hydroxychloroquine [Plaquenil] 1 tab PO DAILY 04/07/19 04/07/19 Unknown History Levothyroxine [Synthroid] 150 mcg PO BID 04/07/19 04/07/19 Unknown History Linaclotide [Linzess] 290 mcg PO DAILY 04/07/19 04/07/19 Unknown History Liothyronine Sodium [Cytomel] 5 mcg PO DAILY 04/07/19 04/07/19 Unknown History Lurasidone HCl [Latuda] 120 mg PO QDAY 04/07/19 04/07/19 Unknown History Magnesium Oxide [Magnesium] 400 mg PO DAILY 04/07/19 04/07/19 Unknown History Meclizine [Antivert] 25 mg PO TID PRN 04/07/19 04/07/19 Unknown History Metoprolol [Lopressor TAB] 50 mg PO DAILY 04/07/19 04/07/19 Unknown History Nabumetone (Nf) [Relafen (Nf)] 1 tab PO BID 04/07/19 04/07/19 Unknown History Pregabalin [Lyrica] 75 mg PO BID 04/07/19 04/07/19 Unknown History Topiramate [Qudexy Xr] 1 tab PO DAILY 04/07/19 04/07/19 Unknown History clonazePAM [Klonopin] 1 mg PO DAILY 04/07/19 04/07/19 Unknown History traMADol [Ultram] 50 mg PO BID 04/07/19 04/07/19 Unknown History ED Review of Systems ROS: Stated complaint: RT BREAST PAIN/BODY PAIN Other details as noted in HPI Constitutional: denies: diaphoresis Eyes: denies: eye pain ENT: denies: throat pain Respiratory: shortness of breath Cardiovascular: chest pain Endocrine: no symptoms reported Gastrointestinal: nausea. denies: vomiting Genitourinary: denies: dysuria Musculoskeletal: denies: back pain Neurological: denies: headache Physical Exam - Physical Exam Vital Signs: Vital Signs 04/07/19 04/07/19 17:37 19:57 Temperature 97.7 F 98 F Pulse Rate 89 81 Respiratory 18 18 Rate Blood Pressure 112/69 Blood Pressure 124/74 [Left] O2 Sat by Pulse 96 99 Oximetry Physical Exam: GENERAL: The patient is well-developed well-nourished female lying on stretcher not appearing to be in acute distress. [] HEENT: Normocephalic. Atraumatic. Extraocular motions are intact. Patient has moist mucous membranes. NECK: Supple. Trachea midline CHEST/LUNGS: Clear to auscultation. There is no respiratory distress noted. HEART/CARDIOVASCULAR: Regular. There is no tachycardia. There is no gallop rub or murmur. ABDOMEN: Abdomen is soft, nontender. Patient has normal bowel sounds. There is no abdominal distention. SKIN: There is no rash. There is no edema. There is no diaphoresis. NEURO: The patient is awake, alert, and oriented. The patient is cooperative. The patient has normal speech MUSCULOSKELETAL: There is no evidence of acute injury. ED Course Vital Signs 04/07/19 04/07/19 17:37 19:57 Temperature 97.7 F 98 F Pulse Rate 89 81 Respiratory 18 18 Rate Blood Pressure 112/69 Blood Pressure 124/74 [Left] O2 Sat by Pulse 96 99 Oximetry ED Medical Decision Making - Lab Data Result diagrams: 04/07/19 18:42 04/07/19 18:42 Laboratory Tests 04/07/19 04/07/19 04/07/19 18:42 18:42 20:22 WBC 9.6 RBC 3.69 Hgb 10.9 Hct 33.0 MCV 90 MCH 30 MCHC 33 RDW 14.7 Plt Count 499 H Lymph % (Auto) 40.5 H Bandera % (Auto) 4.6 Eos % (Auto) 2.5 Baso % (Auto) 0.6 Lymph # 3.9 Bandera # 0.4 Eos # 0.2 Baso # 0.1 Seg Neutrophils % 51.8 Seg Neutrophils # 5.0 D-Dimer 234.50 H Sodium 141 Potassium 3.6 Chloride 100.8 Carbon Dioxide 28 Anion Gap 16 BUN 13 Creatinine 1.3 H Estimated GFR 55 BUN/Creatinine Ratio 10 Glucose 101 H Calcium 9.7 Total Bilirubin < 0.20 AST 23 ALT 30 Alkaline Phosphatase 71 Total Creatine Kinase CK-MB (CK-2) CK-MB (CK-2) Rel Index Troponin T Total Protein 8.2 Albumin 4.1 Albumin/Globulin Ratio 1.0 HCG, Qual 04/07/19 04/07/19 20:22 20:22 WBC RBC Hgb Hct MCV MCH MCHC RDW Plt Count Lymph % (Auto) Bandera % (Auto) Eos % (Auto) Baso % (Auto) Lymph # Bandera # Eos # Baso # Seg Neutrophils % Seg Neutrophils # D-Dimer Sodium Potassium Chloride Carbon Dioxide Anion Gap BUN Creatinine Estimated GFR BUN/Creatinine Ratio Glucose Calcium Total Bilirubin AST ALT Alkaline Phosphatase Total Creatine Kinase 123 CK-MB (CK-2) 1.4 CK-MB (CK-2) Rel Index 1.1 Troponin T < 0.010 Total Protein Albumin Albumin/Globulin Ratio HCG, Qual Negative - EKG Data -: EKG Interpreted by Me EKG shows normal: sinus rhythm Rate: normal - EKG Data When compared to previous EKG there are: no significant change Interpretation: unchanged when compared t (03/18/2019) - Radiology Data Radiology results: report reviewed (chest x-ray), image reviewed (chest x-ray) interpreted by me: Chest x-ray-no focal infiltrates, no pneumothorax Findings [facility] [address] [place] [address] XRay Report Signed Patient: BERT MISTRY MR#: [id number] : 1975 Acct:[id number] Age/Sex: 43 / F ADM Date: 04/07/19 Loc: ED Attending Dr: Ordering Physician: OMER VALIENTE Date of Service: 04/07/19 Procedure(s): XR chest routine 2V Accession Number(s): [id number] cc: OMER VALIENTE Fluoro Time In Minutes: CHEST 2 VIEWS 1805 INDICATION / CLINICAL INFORMATION: chest pain and back pain.. COMPARISON: 03/18/2019 FINDINGS: SUPPORT DEVICES: None. HEART / MEDIASTINUM: No significant abnormality. LUNGS / PLEURA: No significant pulmonary or pleural abnormality. No pneumothorax. ADDITIONAL FINDINGS: No significant additional findings. IMPRESSION: No significant acute abnormality Signer Name: Rafael Maloney MD Signed: 04/07/2019 6:18 PM Workstation Name: [id number] Transcribed By: Dictated By: Rafael Maloney MD Electronically Authenticated By: Rafael Maloney MD Signed Date/Time: 04/07/191817 DD/ 16 TD/TT: - Differential Diagnosis ACS, PE, pericarditis, GERD Critical care attestation.: If time is entered above; I have spent that time in minutes in the direct care of this critically ill patient, excluding procedure time. ED Disposition Clinical Impression: Chest pain Disposition: OP ADMIT IP TO THIS HOSP Is pt being admited?: Yes Does the pt Need Aspirin: No Condition: Fair Instructions: Chest Pain (ED) Time of Disposition: 21:23 (Hospitalist paged (Dr. Michelle Flanagan) ()
[2019-04-07 21:18] LABS: Creatine Kinase MB 1.4 ng/mL (0.0-4.0)
[2019-04-07] MEDS ORDERED: D50W (25GM) Syringe IV PRN (21:42)
[2019-04-07] MEDS ORDERED: SODIUM CHLORIDE FLUSH SYRINGE 10 ML IV PRN (21:42)
[2019-04-07] MEDS ORDERED: ZOFRAN IV PRN (21:42)
[2019-04-07] MEDS ORDERED: TYLENOL PO PRN (21:42)
--- NOTE | 2019-04-07 21:42 | History and Physical Report ---
History of Present Illness Date of examination: 04/07/19 History of present illness: 43-year-old woman with history of hypertension, diabetes, hyperlidemia, hypothyroidism, bipolar, fibromyalgia, seizure, migraine, TIA, JOE comes to the emergency room with complaints of chest pain, described as sharp, constant, intensity, 5/10, no radiation, cannot identify exacerbating factors. Admits to nausea, shortness of breath , no vomiting, palpitation. She had a stress test last year which was negative Review of systems Constitutional: no weight loss, chills, fever Ears, eyes, nose, mouth and throat: no nasal congestion, no nasal discharge, no sinus pressure, no vision change, no red eye. Neck: No neck pain or rigidity. Cardiovascular: no palpitations Respiratory: no cough Gastrointestinal: no hematochezia, abdominal pain Genitourinary : no frequency , no hematuria Musculoskeletal: no joint swelling or muscle ache Integumentary: no rash, no pruritis Neurological: no parathesias, no focal weakness Endocrine: no cold or heat intolerance, no polyuria or polydipsia Hematologic/Lymphatic: no easy bruising, no easy bleeding, no gland swelling Allergic/Immunologic: no urticaria, no angioedema. PAST MEDICAL HISTORY:hypertension, diabetes, hyperlidemia, hypothyroidism, bipolar, fibromyalgia, seizure, migraine, TIA, JOE PAST SURGICAL HISTORY: Cyst removal from right breast, right shoulder, rectal surgery SOCIAL HISTORY: Denies alcohol, drugs, tobacco FAMILY HISTORY: Hypertension Medications and Allergies Allergies Allergy/AdvReac Type Severity Reaction Status Date / Time aspirin Allergy Hives Verified 01/20/18 07:51 butorphanol tartrate Allergy Seizure Verified 01/20/18 07:51 [From Stadol] latex Allergy Hives Verified 01/20/18 07:51 NSAIDS (Non-Steroidal Allergy Hives Verified 01/20/18 07:51 Anti-Inflamma Home Medications Medication Instructions Recorded Confirmed Last Taken Type Amitriptyline HCl 150 mg PO DAILY 04/07/19 04/07/19 Unknown History Amlodipine Besylate [Norvasc] 10 mg PO DAILY 04/07/19 04/07/19 Unknown History Calcium Carbonate/Vitamin D3 1 tab PO BID 04/07/19 04/07/19 Unknown History [Calcium 600-Vit D3 800 Caplet] Dexlansoprazole [Dexilant] 1 tab PO DAILY 04/07/19 04/07/19 Unknown History Dicyclomine [Bentyl] 20 mg PO QID 04/07/19 04/07/19 Unknown History Duloxetine HCl [Cymbalta] 1 tab PO DAILY 04/07/19 04/07/19 Unknown History Ergocalciferol (Vitamin D2) 50,000 unit PO 1XW 04/07/19 04/07/19 Unknown History [Vitamin D2] Hydroxychloroquine [Plaquenil] 1 tab PO DAILY 04/07/19 04/07/19 Unknown History Levothyroxine [Synthroid] 150 mcg PO BID 04/07/19 04/07/19 Unknown History Linaclotide [Linzess] 290 mcg PO DAILY 04/07/19 04/07/19 Unknown History Liothyronine Sodium [Cytomel] 5 mcg PO DAILY 04/07/19 04/07/19 Unknown History Lurasidone HCl [Latuda] 120 mg PO QDAY 04/07/19 04/07/19 Unknown History Magnesium Oxide [Magnesium] 400 mg PO DAILY 04/07/19 04/07/19 Unknown History Meclizine [Antivert] 25 mg PO TID PRN 04/07/19 04/07/19 Unknown History Metoprolol [Lopressor TAB] 50 mg PO DAILY 04/07/19 04/07/19 Unknown History Nabumetone (Nf) [Relafen (Nf)] 1 tab PO BID 04/07/19 04/07/19 Unknown History Pregabalin [Lyrica] 75 mg PO BID 04/07/19 04/07/19 Unknown History Topiramate [Qudexy Xr] 1 tab PO DAILY 04/07/19 04/07/19 Unknown History clonazePAM [Klonopin] 1 mg PO DAILY 04/07/19 04/07/19 Unknown History traMADol [Ultram] 50 mg PO BID 04/07/19 04/07/19 Unknown History Exam - Physical Exam Narrative exam: General Apperance: The patient lying in bed, breathing comfortable HEENT: Normocephalic, atraumatic. Pupils equally round and reactive to light, EOMI, no sclericterus or JVD or thyromegaly or nodule. , no carotid bruit, mucous membranes moist, no exudate or erythema Heart: S1-S2, regular is rhythm Lungs: Clear to auscultation bilaterally, breathing comfortable Abdomen: Positive bowel sounds, soft, nontender, nondistended, no organomegaly Extremities: No edema cyanosis clubbing Skin: no rash, nodule, warm and dry Neuro: cranial nerves 2-12 intact, speech is fluent, motor/sensory intact - Constitutional Vitals: Temp Pulse Resp BP Pulse Ox 98 F 79 15 116/74 99 04/07/19 19:57 04/07/19 20:25 04/07/19 20:22 04/07/19 20:25 04/07/19 19:57 Results - Labs CBC & Chem 7: 04/07/19 18:42 04/07/19 18:42 Labs: Abnormal lab results 04/07/19 04/07/19 04/07/19 Range/Units 18:42 18:42 20:22 Plt Count 499 H (140-440) K/mm3 Lymph % (Auto) 40.5 H (13.4-35.0) % D-Dimer 234.50 H (0-234) ng/mlDDU Creatinine 1.3 H (0.7-1.2) mg/dL Glucose 101 H (65-100) mg/dL - Imaging and Cardiology EKG: image reviewed Chest x-ray: report reviewed Assessment and Plan Assessment Chest Pain hypertension diabetes hyperlidemia hypothyroidism bipolar fibromyalgia seizure migraine TIA JOE Plan Admit to medicine Check cardiac enzymes, consult cardiology Check fingersticks and start sliding scale DVT prophalaxis
[2019-04-07] MEDS: PERCOCET 5/325 PO PRN (22:13)
[2019-04-07] MEDS: HumaLOG SUB-Q SCH (22:20)
[2019-04-07] MEDS: SODIUM CHLORIDE FLUSH SYRINGE 10 ML IV SCH (22:20)
[2019-04-07] MEDS ORDERED: MORPHINE IV PRN (22:47)
[2019-04-07] MEDS ORDERED: ANTIVERT PO PRN (23:57)
[2019-04-08] MEDS: ELAVIL PO SCH ×2 (00:59→22:26)
[2019-04-08] MEDS: PERCOCET 5/325 PO PRN ×2 (05:24→22:27)
[2019-04-08] MEDS: SYNTHROID PO SCH (05:24)
[2019-04-08 06:07] LABS: Hematocrit 30.3 % (30.3-42.9); Hemoglobin 10.2 gm/dl (10.1-14.3); Mean Corpuscular HGB Conc 34 % (30-34); Mean Corpuscular Volume 89 fl (79-97); Platelet Count 499 K/mm3 (140-440); Red Cell Distribution Width 14.3 % (13.2-15.2)
[2019-04-08 06:09] LABS: Basophils # (Auto) 0.2 K/mm3 (0.0-0.1); Basophils % (Auto) 1.4 % (0.0-1.8); Eosinophils # (Auto) 0.3 K/mm3 (0.0-0.4); Eosinophils % (Auto) 2.6 % (0.0-4.3); Lymphocytes # (Auto) 4.2 K/mm3 (1.2-5.4); Lymphocytes % (Auto) 38.1 % (13.4-35.0); Monocytes # (Auto) 0.5 K/mm3 (0.0-0.8); Monocytes % (Auto) 4.8 % (0.0-7.3)
[2019-04-08 06:14] LABS: Calcium 8.9 mg/dL (8.4-10.2)
[2019-04-08] MEDS: HumaLOG SUB-Q SCH ×4 (08:13→22:28)
[2019-04-08] MEDS: CYMBALTA PO SCH (09:50)
[2019-04-08] MEDS: PROTONIX PO SCH (09:51)
[2019-04-08] MEDS: OYSCO D 500 MG-200 UNIT PO SCH ×2 (09:51→22:26)
[2019-04-08] MEDS: MAG-OX PO SCH (09:51)
[2019-04-08] MEDS: BENTYL PO SCH ×4 (09:51→22:28)
[2019-04-08] MEDS: LOPRESSOR PO SCH (09:52)
[2019-04-08] MEDS: LYRICA PO SCH ×2 (09:52→22:26)
[2019-04-08] MEDS: LOVENOX SUB-Q SCH (09:52)
[2019-04-08] MEDS: NORVASC PO SCH (09:53)
[2019-04-08] MEDS: SODIUM CHLORIDE FLUSH SYRINGE 10 ML IV SCH ×2 (09:55→22:30)
[2019-04-08] MEDS ORDERED: NABUMETONE PO SCH (10:00)
[2019-04-08] MEDS ORDERED: ULTRAM PO SCH (10:00)
[2019-04-08] MEDS ORDERED: NON-FORMULARY (Liothyronine Sodium [Cytomel] 5 MCG) PO SCH (10:00)
[2019-04-08] MEDS ORDERED: TOPIRAMATE PO SCH (10:00)
[2019-04-08] MEDS ORDERED: VITAMIN D2 PO SCH (10:00)
[2019-04-08] MEDS ORDERED: NON-FORMULARY (Lurasidone Hcl [Latuda] 120 MG) PO SCH (10:00)
--- NOTE | 2019-04-08 10:59 | Progress Note ---
Assessment and Plan Assessment and plan: Chest Pain. Patient reportedly with recent stress test negative. We'll defer to cardiology for further evaluation. Hypertension. Continue Norvasc and metoprolol daily. Diabetes mellitus type II. Continue Accu-Cheks and sliding scale regular insulin Hyperlipidemia. Hypothyroidism. Continue Synthroid daily. Bipolar disorder. Continue Lurasidone. Fibromyalgia. Continue Elavil Seizure d/o. Seizure precautions. Migraine. Continue home medications and supportive care. JOE. CPAP as needed. History Interval history: 43-year-old woman with history of hypertension, diabetes, hyperlidemia, hypothyroidism, bipolar, fibromyalgia, seizure, migraine, TIA, JOE comes to the emergency room with complaints of chest pain, described as sharp, constant, intensity, 5/10, no radiation, cannot identify exacerbating factors. Admits to nausea, shortness of breath , no vomiting, palpitation. She had a stress test last year which was negative Hospitalist Physical - Constitutional Vitals: Temp Pulse Resp BP Pulse Ox 97.9 F 85 18 97/51 98 04/08/19 09:12 04/08/19 09:53 04/08/19 09:12 04/08/19 09:53 04/08/19 09:12 General appearance: Present: no acute distress, well-nourished - EENT Eyes: Present: PERRL, EOM intact ENT: hearing intact, clear oral mucosa, dentition normal - Neck Neck: Present: supple, normal ROM - Respiratory Respiratory effort: normal Respiratory: bilateral: CTA - Cardiovascular Rhythm: regular Heart Sounds: Present: S1 & S2. Absent: gallop, rub - Extremities Extremities: no ischemia, No edema, Full ROM - Abdominal General gastrointestinal: soft, non-tender, non-distended, normal bowel sounds - Integumentary Integumentary: Present: clear, warm, dry - Neurologic Neurologic: CNII-XII intact, moves all extremities Results - Labs CBC & Chem 7: 04/08/19 04:28 04/08/19 04:28 Labs: Laboratory Last Values WBC 10.9 K/mm3 (4.5-11.0) 04/08/19 04:28 RBC 3.40 M/mm3 (3.65-5.03) L 04/08/19 04:28 Hgb 10.2 gm/dl (10.1-14.3) 04/08/19 04:28 Hct 30.3 % (30.3-42.9) 04/08/19 04:28 MCV 89 fl (79-97) 04/08/19 04:28 MCH 30 pg (28-32) 04/08/19 04:28 MCHC 34 % (30-34) 04/08/19 04:28 RDW 14.3 % (13.2-15.2) 04/08/19 04:28 Plt Count 499 K/mm3 (140-440) H 04/08/19 04:28 Lymph % (Auto) 38.1 % (13.4-35.0) H 04/08/19 04:28 Vance % (Auto) 4.8 % (0.0-7.3) 04/08/19 04:28 Eos % (Auto) 2.6 % (0.0-4.3) 04/08/19 04:28 Baso % (Auto) 1.4 % (0.0-1.8) 04/08/19 04:28 Lymph # 4.2 K/mm3 (1.2-5.4) 04/08/19 04:28 Vance # 0.5 K/mm3 (0.0-0.8) 04/08/19 04:28 Eos # 0.3 K/mm3 (0.0-0.4) 04/08/19 04:28 Baso # 0.2 K/mm3 (0.0-0.1) H 04/08/19 04:28 Seg Neutrophils % 53.1 % (40.0-70.0) 04/08/19 04:28 Seg Neutrophils # 5.8 K/mm3 (1.8-7.7) 04/08/19 04:28 234.50 ng/mlDDU (0-234) H 04/07/19 20:22 Sodium 137 mmol/L (137-145) 04/08/19 04:28 Potassium 3.7 mmol/L (3.6-5.0) 04/08/19 04:28 Chloride 98.5 mmol/L (98-107) 04/08/19 04:28 Carbon Dioxide 27 mmol/L (22-30) 04/08/19 04:28 15 mmol/L 04/08/19 04:28 BUN 13 mg/dL (7-17) 04/08/19 04:28 1.3 mg/dL (0.7-1.2) H 04/08/19 04:28 Estimated GFR 55 ml/min 04/08/19 04:28 10 % 04/08/19 04:28 Glucose 116 mg/dL (65-100) H 04/08/19 04:28 POC Glucose 102 (70-105) 04/07/19 22:25 Calcium 8.9 mg/dL (8.4-10.2) 04/08/19 04:28 < 0.20 mg/dL (0.1-1.2) 04/07/19 18:42 AST 23 units/L (5-40) 04/07/19 18:42 ALT 30 units/L (7-56) 04/07/19 18:42 71 units/L (35-129) 04/07/19 18:42 123 units/L (30-135) 04/07/19 20:22 CK-MB (CK-2) 1.4 ng/mL (0.0-4.0) 04/07/19 20:22 CK-MB (CK-2) Rel Index 1.1 (0-4) 04/07/19 20:22 < 0.010 ng/mL (0.00-0.029) 04/07/19 20:22 8.2 g/dL (6.3-8.2) 04/07/19 18:42 4.1 g/dL (3.9-5) 04/07/19 18:42 1.0 % 04/07/19 18:42 HCG, Qual Negative (Negative) 04/07/19 20:22 Active Medications - Current Medications Current Medications: Generic Name Dose Route Start Last Admin Trade Name Freq PRN Reason Stop Dose Admin Acetaminophen 650 mg 04/07/19 21:42 Tylenol PO Q4H PRN Pain MILD(1-3)/Fever >100.5/ROBLES Amitriptyline HCl 150 mg 04/08/19 02:00 04/08/19 00:59 Elavil PO 150 mg QHS [facility] Administration Amlodipine Besylate 10 mg 04/08/19 10:00 04/08/19 09:53 Norvasc PO 10 mg DAILY [facility] Administration Calcium/Vitamin D 1 each 04/08/19 10:00 04/08/19 09:51 Oysco D 500 Mg-200 Unit PO 1 each BID [facility] Administration Clonazepam 1 mg 04/08/19 10:00 04/08/19 09:51 Klonopin PO 1 mg DAILY [facility] Administration Dextrose 50 ml 04/07/19 21:42 D50w (25gm) Syringe IV PRN PRN Hypoglycemia Dicyclomine HCl 20 mg 04/08/19 10:00 04/08/19 09:51 Bentyl PO 20 mg QID [facility] Administration Duloxetine HCl 60 mg 04/08/19 10:00 04/08/19 09:50 Cymbalta PO 60 mg DAILY [facility] Administration Enoxaparin Sodium 40 mg 04/08/19 10:00 04/08/19 09:52 Lovenox SUB-Q 40 mg QDAY [facility] Administration Ergocalciferol 50,000 unit 04/08/19 10:00 Vitamin D2 PO Mo [facility] Hydroxychloroquine Sulfate 200 mg 04/08/19 22:00 Plaquenil PO QHS [facility] Insulin Human Lispro 0 unit 04/07/19 22:00 04/08/19 08:13 Humalog SUB-Q Not Given ACHS [facility] Protocol Levothyroxine Sodium 150 mcg 04/08/19 06:00 04/08/19 05:24 Synthroid PO 150 mcg QAM@0600 [facility] Administration Magnesium Oxide 400 mg 04/08/19 10:00 04/08/19 09:51 Mag-Ox PO 400 mg DAILY [facility] Administration Meclizine HCl 25 mg 04/07/19 23:57 Antivert PO TID PRN Vertigo Metoprolol Tartrate 50 mg 04/08/19 10:00 04/08/19 09:52 Lopressor PO Not Given DAILY [facility] Miscellaneous Medication 5 mcg 04/08/19 10:00 Liothyronine Sodium [Cytomel] PO DAILY [facility] Miscellaneous Medication 120 mg 04/08/19 10:00 Lurasidone Hcl [Latuda] PO QDAY [facility] Miscellaneous Medication 1 tab 04/08/19 10:00 Nabumetone (Nf) PO BID [facility] Miscellaneous Medication 1 tab 04/08/19 10:00 Topiramate [Qudexy Xr] PO DAILY [facility] Morphine Sulfate 2 mg 04/07/19 22:47 Morphine IV Q4H PRN Pain, Moderate (4-6) Ondansetron HCl 4 mg 04/07/19 21:42 Zofran IV Q8H PRN Nausea And Vomiting Oxycodone/Acetaminophen 1 tab 04/07/19 21:42 04/08/19 05:24 Percocet 5/325 PO 1 tab Q6H PRN Administration Pain, Moderate (4-6) Pantoprazole Sodium 40 mg 04/08/19 10:00 04/08/19 09:51 Protonix PO 40 mg DAILY [facility] Administration Pregabalin 75 mg 04/08/19 10:00 04/08/19 09:52 Lyrica PO 75 mg BID [facility] Administration Sodium Chloride 10 ml 04/07/19 22:00 04/08/19 09:55 Sodium Chloride Flush Syringe 10 Ml IV 10 ml BID [facility] Administration Sodium Chloride 10 ml 04/07/19 21:42 Sodium Chloride Flush Syringe 10 Ml IV PRN PRN LINE FLUSH
--- NOTE | 2019-04-08 11:05 | Consultation ---
History of Present Illness Consult date: 04/08/19 Consult reason: chest pain History of present illness: This is a 43-year old woman with multiple medical problems. She was brought to this hospital complaining of chest pain thus this cardiac consultation. Patient describes chest pain under her left breast associated with back pain. Chest pain worsens with movement, deep inspiration and palpation. Initial set of cardiac enzymes were normal and her ECG is benign. There is no history of coronary artery disease. The patient latest cardiac workup was done at this hospital a year ago. At that time, she had stress thallium test that reports no ischemia, normal left ventricular systolic functi on, EF 50-55% by echocardiogram. In 2017, patient had a cardiac PET scan that reports no ischemia Medications and Allergies Allergies Allergy/AdvReac Type Severity Reaction Status Date / Time aspirin Allergy Hives Verified 01/20/18 07:51 butorphanol tartrate Allergy Seizure Verified 01/20/18 07:51 [From Stadol] latex Allergy Hives Verified 01/20/18 07:51 NSAIDS (Non-Steroidal Allergy Hives Verified 01/20/18 07:51 Anti-Inflamma Home Medications Medication Instructions Recorded Confirmed Last Taken Type Amitriptyline HCl 150 mg PO DAILY 04/07/19 04/07/19 Unknown History Amlodipine Besylate [Norvasc] 10 mg PO DAILY 04/07/19 04/07/19 Unknown History Calcium Carbonate/Vitamin D3 1 tab PO BID 04/07/19 04/07/19 Unknown History [Calcium 600-Vit D3 800 Caplet] Dexlansoprazole [Dexilant] 1 tab PO DAILY 04/07/19 04/07/19 Unknown History Dicyclomine [Bentyl] 20 mg PO QID 04/07/19 04/07/19 Unknown History Duloxetine HCl [Cymbalta] 1 tab PO DAILY 04/07/19 04/07/19 Unknown History Ergocalciferol (Vitamin D2) 50,000 unit PO 1XW 04/07/19 04/07/19 Unknown History [Vitamin D2] Hydroxychloroquine [Plaquenil] 1 tab PO DAILY 04/07/19 04/07/19 Unknown History Levothyroxine [Synthroid] 150 mcg PO BID 04/07/19 04/07/19 Unknown History Linaclotide [Linzess] 290 mcg PO DAILY 04/07/19 04/07/19 Unknown History Liothyronine Sodium [Cytomel] 5 mcg PO DAILY 04/07/19 04/07/19 Unknown History Lurasidone HCl [Latuda] 120 mg PO QDAY 04/07/19 04/07/19 Unknown History Magnesium Oxide [Magnesium] 400 mg PO DAILY 04/07/19 04/07/19 Unknown History Meclizine [Antivert] 25 mg PO TID PRN 04/07/19 04/07/19 Unknown History Metoprolol [Lopressor TAB] 50 mg PO DAILY 04/07/19 04/07/19 Unknown History Nabumetone (Nf) [Relafen (Nf)] 1 tab PO BID 04/07/19 04/07/19 Unknown History Pregabalin [Lyrica] 75 mg PO BID 04/07/19 04/07/19 Unknown History Topiramate [Qudexy Xr] 1 tab PO DAILY 04/07/19 04/07/19 Unknown History clonazePAM [Klonopin] 1 mg PO DAILY 04/07/19 04/07/19 Unknown History traMADol [Ultram] 50 mg PO BID 04/07/19 04/07/19 Unknown History Active Meds: Active Medications Acetaminophen (Tylenol) 650 mg PO Q4H PRN PRN Reason: Pain MILD(1-3)/Fever >100.5/ROBLES Amitriptyline HCl (Elavil) 150 mg PO QHS [facility] Last Admin: 04/08/19 00:59 Dose: 150 mg Documented by: Amlodipine Besylate (Norvasc) 10 mg PO DAILY [facility] Last Admin: 04/08/19 09:53 Dose: 10 mg Documented by: Calcium/Vitamin D (Oysco D 500 Mg-200 Unit) 1 each PO BID [facility] Last Admin: 04/08/19 09:51 Dose: 1 each Documented by: Clonazepam (Klonopin) 1 mg PO DAILY [facility] Last Admin: 04/08/19 09:51 Dose: 1 mg Documented by: Dextrose (D50w (25gm) Syringe) 50 ml IV PRN PRN PRN Reason: Hypoglycemia Dicyclomine HCl (Bentyl) 20 mg PO QID [facility] Last Admin: 04/08/19 09:51 Dose: 20 mg Documented by: Duloxetine HCl (Cymbalta) 60 mg PO DAILY [facility] Last Admin: 04/08/19 09:50 Dose: 60 mg Documented by: Enoxaparin Sodium (Lovenox) 40 mg SUB-Q QDAY [facility] Last Admin: 04/08/19 09:52 Dose: 40 mg Documented by: Ergocalciferol (Vitamin D2) 50,000 unit PO Mo [facility] Hydroxychloroquine Sulfate (Plaquenil) 200 mg PO QHS [facility] Insulin Human Lispro (Humalog) 0 unit SUB-Q ACHS [facility]; Protocol Last Admin: 04/08/19 08:13 Dose: Not Given Documented by: Levothyroxine Sodium (Synthroid) 150 mcg PO QAM@0600 [facility] Last Admin: 04/08/19 05:24 Dose: 150 mcg Documented by: Magnesium Oxide (Mag-Ox) 400 mg PO DAILY [facility] Last Admin: 04/08/19 09:51 Dose: 400 mg Documented by: Meclizine HCl (Antivert) 25 mg PO TID PRN PRN Reason: Vertigo Metoprolol Tartrate (Lopressor) 50 mg PO DAILY [facility] Last Admin: 04/08/19 09:52 Dose: Not Given Documented by: Miscellaneous Medication (Liothyronine Sodium [Cytomel]) 5 mcg PO DAILY [facility] Miscellaneous Medication (Lurasidone Hcl [Latuda]) 120 mg PO QDAY [facility] Miscellaneous Medication (Nabumetone (Nf)) 1 tab PO BID [facility] Miscellaneous Medication (Topiramate [Qudexy Xr]) 1 tab PO DAILY [facility] Morphine Sulfate (Morphine) 2 mg IV Q4H PRN PRN Reason: Pain, Moderate (4-6) Ondansetron HCl (Zofran) 4 mg IV Q8H PRN PRN Reason: Nausea And Vomiting Oxycodone/Acetaminophen (Percocet 5/325) 1 tab PO Q6H PRN PRN Reason: Pain, Moderate (4-6) Last Admin: 04/08/19 05:24 Dose: 1 tab Documented by: Pantoprazole Sodium (Protonix) 40 mg PO DAILY [facility] Last Admin: 04/08/19 09:51 Dose: 40 mg Documented by: Pregabalin (Lyrica) 75 mg PO BID [facility] Last Admin: 04/08/19 09:52 Dose: 75 mg Documented by: Sodium Chloride (Sodium Chloride Flush Syringe 10 Ml) 10 ml IV BID [facility] Last Admin: 04/08/19 09:55 Dose: 10 ml Documented by: Sodium Chloride (Sodium Chloride Flush Syringe 10 Ml) 10 ml IV PRN PRN PRN Reason: LINE FLUSH Physical Examination Vital Signs Temp Pulse Resp BP Pulse Ox 97.7 F 89 18 112/69 96 04/07/19 17:37 04/07/19 17:37 04/07/19 17:37 04/07/19 17:37 04/07/19 17:37 General appearance: no acute distress HEENT: Positive: PERRL Neck: Positive: trachea midline Cardiac: Positive: Reg Rate and Rhythm Lungs: Positive: Decreased Breath Sounds Neuro: Positive: Grossly Intact Extremities: Absent: edema Results 04/08/19 04:28 04/08/19 04:28 Cardiac Enzymes 04/07/19 04/07/19 Range/Units 18:42 20:22 AST 23 (5-40) units/L CK-MB (CK-2) 1.4 (0.0-4.0) ng/mL CBC 04/07/19 04/08/19 Range/Units 18:42 04:28 WBC 9.6 10.9 (4.5-11.0) K/mm3 RBC 3.69 3.40 L (3.65-5.03) M/mm3 Hgb 10.9 10.2 (10.1-14.3) gm/dl Hct 33.0 30.3 (30.3-42.9) % Plt Count 499 H 499 H (140-440) K/mm3 Lymph # 3.9 4.2 (1.2-5.4) K/mm3 [place] # 0.4 0.5 (0.0-0.8) K/mm3 Eos # 0.2 0.3 (0.0-0.4) K/mm3 Baso # 0.1 0.2 H (0.0-0.1) K/mm3 Comprehensive Metabolic Panel 04/07/19 04/08/19 Range/Units 18:42 04:28 Sodium 141 137 (137-145) mmol/L Potassium 3.6 3.7 (3.6-5.0) mmol/L Chloride 100.8 98.5 (98-107) mmol/L Carbon Dioxide 28 27 (22-30) mmol/L BUN 13 13 (7-17) mg/dL Creatinine 1.3 H 1.3 H (0.7-1.2) mg/dL Glucose 101 H 116 H (65-100) mg/dL Calcium 9.7 8.9 (8.4-10.2) mg/dL AST 23 (5-40) units/L ALT 30 (7-56) units/L Alkaline Phosphatase 71 (35-129) units/L Total Protein 8.2 (6.3-8.2) g/dL Albumin 4.1 (3.9-5) g/dL Assessment and Plan Atypical chest pain, musculoskeletal normal MPI 02/2018 normal LVEF by echo 02/2018 no ischemia by cardiac PET scan 12/2016 Chronic kidney disease Diabetes Bipolar disease Hypertension Sleep apnea compliant with CPAP Obesity
[2019-04-08] MEDS ORDERED: TORADOL IV SCH (14:00)
[2019-04-08] MEDS ORDERED: PLAQUENIL PO SCH (22:00)
[2019-04-08] MEDS ORDERED: ULTRAM PO PRN (22:22)
[2019-04-09] MEDS: SYNTHROID PO SCH (05:55)
[2019-04-09] MEDS: PERCOCET 5/325 PO PRN (05:55)
[2019-04-09] MEDS: HumaLOG SUB-Q SCH ×3 (08:15→17:34)
[2019-04-09] MEDS: CYMBALTA PO SCH (09:48)
[2019-04-09] MEDS: PROTONIX PO SCH (09:48)
[2019-04-09] MEDS: MAG-OX PO SCH (09:48)
[2019-04-09] MEDS: LYRICA PO SCH (09:49)
[2019-04-09] MEDS: OYSCO D 500 MG-200 UNIT PO SCH (09:49)
[2019-04-09] MEDS: BENTYL PO SCH ×2 (09:50→13:36)
[2019-04-09] MEDS: LOPRESSOR PO SCH (09:50)
[2019-04-09] MEDS: NORVASC PO SCH (09:50)
[2019-04-09] MEDS: LOVENOX SUB-Q SCH (09:51)
[2019-04-09] MEDS: SODIUM CHLORIDE FLUSH SYRINGE 10 ML IV SCH (09:51)
--- NOTE | 2019-04-09 10:05 | Progress Note ---
Assessment and Plan Atypical chest pain, musculoskeletal normal MPI 02/2018 normal LVEF by echo 02/2018 no ischemia by cardiac PET scan 12/2016 Acute kidney disease Diabetes Bipolar disease Hypertension Sleep apnea compliant with CPAP Obesity Recommend: Pulmonary embolism protocol. Otherwise, conservative cardiac management. Subjective Date of service: 04/09/19 Interval history: Appears somnolent. Objective Vital Signs Temp Pulse Resp BP Pulse Ox 04/09/19 09:50 85 138/93 04/09/19 08:32 98.3 F 85 18 138/93 100 04/09/19 05:55 20 04/09/19 03:24 97.5 F L 88 20 102/70 99 04/09/19 03:00 92 H 04/08/19 23:31 98.2 F 20 101/64 04/08/19 23:00 88 20 96 04/08/19 22:54 98.2 F 92 H 19 89/57 96 04/08/19 22:27 20 04/08/19 21:50 98.7 F 97 H 20 98/61 95 04/08/19 20:48 97 04/08/19 20:07 94 04/08/19 19:39 98.1 F 102 H 20 97/64 94 04/08/19 19:00 102 H 04/08/19 15:52 98.3 F 94 H 18 100/58 97 04/08/19 13:00 98 04/08/19 11:00 89 04/08/19 10:10 96 - Physical Examination General: No Apparent Distress HEENT: Positive: PERRL Neck: Positive: trachea midline Cardiac: Positive: Reg Rate and Rhythm Lungs: Positive: Decreased Breath Sounds Neuro: Positive: Grossly Intact Extremities: Absent: edema
--- NOTE | 2019-04-09 11:56 | Progress Note ---
Assessment and Plan Assessment and plan: Assessment Chest Pain hypertension diabetes hyperlidemia hypothyroidism bipolar fibromyalgia seizure migraine TIA JOE Plan Admitted to medicine Check cardiac enzymes, Cardiology following Cardiology states pain is non cardiac trial of NSAIDS, iv Ketorolac Check fingersticks and start sliding scale DVT prophalaxis History Interval history: Chest pain No shortness of breath Hospitalist Physical - Physical exam Narrative exam: Gen: Not in acute distress, lying in bed,morbid obesity HEENT: Normocephalic, atraumatic Neck: supple, no JVD Heart: S1 and S2 reg, no murmurs, rubs or gallop Lungs: Clear, no crackles or wheeze Abd: soft, non tender, not distended, normal BS Ext: No edema, no clubbing, no cyanosis Neuro:awake,alert, Oriented X 3. No focal signs Psych: Normal mood - Constitutional Vitals: Temp Pulse Resp BP Pulse Ox 98.3 F 85 18 138/93 100 04/09/19 08:32 04/09/19 09:50 04/09/19 08:32 04/09/19 09:50 04/09/19 10:32 General appearance: Present: no acute distress Results - Labs CBC & Chem 7: 04/08/19 04:28 04/08/19 04:28 Labs: Laboratory Last Values WBC 10.9 K/mm3 (4.5-11.0) 04/08/19 04:28 RBC 3.40 M/mm3 (3.65-5.03) L 04/08/19 04:28 Hgb 10.2 gm/dl (10.1-14.3) 04/08/19 04:28 Hct 30.3 % (30.3-42.9) 04/08/19 04:28 MCV 89 fl (79-97) 04/08/19 04:28 MCH 30 pg (28-32) 04/08/19 04:28 MCHC 34 % (30-34) 04/08/19 04:28 RDW 14.3 % (13.2-15.2) 04/08/19 04:28 Plt Count 499 K/mm3 (140-440) H 04/08/19 04:28 Lymph % (Auto) 38.1 % (13.4-35.0) H 04/08/19 04:28 [place] % (Auto) 4.8 % (0.0-7.3) 04/08/19 04:28 Eos % (Auto) 2.6 % (0.0-4.3) 04/08/19 04:28 Baso % (Auto) 1.4 % (0.0-1.8) 04/08/19 04:28 Lymph # 4.2 K/mm3 (1.2-5.4) 04/08/19 04:28 [place] # 0.5 K/mm3 (0.0-0.8) 04/08/19 04:28 Eos # 0.3 K/mm3 (0.0-0.4) 04/08/19 04:28 Baso # 0.2 K/mm3 (0.0-0.1) H 04/08/19 04:28 Seg Neutrophils % 53.1 % (40.0-70.0) 04/08/19 04:28 Seg Neutrophils # 5.8 K/mm3 (1.8-7.7) 04/08/19 04:28 234.50 ng/mlDDU (0-234) H 04/07/19 20:22 Sodium 137 mmol/L (137-145) 04/08/19 04:28 Potassium 3.7 mmol/L (3.6-5.0) 04/08/19 04:28 Chloride 98.5 mmol/L (98-107) 04/08/19 04:28 Carbon Dioxide 27 mmol/L (22-30) 04/08/19 04:28 15 mmol/L 04/08/19 04:28 BUN 13 mg/dL (7-17) 04/08/19 04:28 1.3 mg/dL (0.7-1.2) H 04/08/19 04:28 Estimated GFR 55 ml/min 04/08/19 04:28 10 % 04/08/19 04:28 Glucose 116 mg/dL (65-100) H 04/08/19 04:28 POC Glucose 131 (70-105) H 04/09/19 07:54 Calcium 8.9 mg/dL (8.4-10.2) 04/08/19 04:28 < 0.20 mg/dL (0.1-1.2) 04/07/19 18:42 AST 23 units/L (5-40) 04/07/19 18:42 ALT 30 units/L (7-56) 04/07/19 18:42 71 units/L (35-129) 04/07/19 18:42 123 units/L (30-135) 04/07/19 20:22 CK-MB (CK-2) 1.4 ng/mL (0.0-4.0) 04/07/19 20:22 CK-MB (CK-2) Rel Index 1.1 (0-4) 04/07/19 20:22 < 0.010 ng/mL (0.00-0.029) 04/07/19 20:22 8.2 g/dL (6.3-8.2) 04/07/19 18:42 4.1 g/dL (3.9-5) 04/07/19 18:42 1.0 % 04/07/19 18:42 HCG, Qual Negative (Negative) 04/07/19 20:22 Active Medications - Current Medications Current Medications: Generic Name Dose Route Start Last Admin Trade Name Freq PRN Reason Stop Dose Admin Acetaminophen 650 mg 04/07/19 21:42 Tylenol PO Q4H PRN Pain MILD(1-3)/Fever >100.5/ROBLES Amitriptyline HCl 150 mg 04/08/19 02:00 04/08/19 22:26 Elavil PO 150 mg QHS [facility] Administration Amlodipine Besylate 10 mg 04/08/19 10:00 04/09/19 09:50 Norvasc PO 10 mg DAILY [facility] Administration Calcium/Vitamin D 1 each 04/08/19 10:00 04/09/19 09:49 Oysco D 500 Mg-200 Unit PO 1 each BID [facility] Administration Clonazepam 1 mg 04/08/19 10:00 04/09/19 09:49 Klonopin PO 1 mg DAILY [facility] Administration Dextrose 50 ml 04/07/19 21:42 D50w (25gm) Syringe IV PRN PRN Hypoglycemia Dicyclomine HCl 20 mg 04/08/19 10:00 04/09/19 09:50 Bentyl PO 20 mg QID [facility] Administration Duloxetine HCl 60 mg 04/08/19 10:00 04/09/19 09:48 Cymbalta PO 60 mg DAILY [facility] Administration Enoxaparin Sodium 40 mg 04/08/19 10:00 04/09/19 09:51 Lovenox SUB-Q 40 mg QDAY [facility] Administration Ergocalciferol 50,000 unit 04/08/19 10:00 04/08/19 11:50 Vitamin D2 PO 50,000 unit Mo [facility] Administration Hydroxychloroquine Sulfate 200 mg 04/08/19 22:00 04/08/19 22:26 Plaquenil PO 200 mg QHS [facility] Administration Insulin Human Lispro 0 unit 04/07/19 22:00 04/09/19 08:15 Humalog SUB-Q Not Given ACHS [facility] Protocol Levothyroxine Sodium 150 mcg 04/08/19 06:00 04/09/19 05:55 Synthroid PO 150 mcg QAM@0600 [facility] Administration Magnesium Oxide 400 mg 04/08/19 10:00 04/09/19 09:48 Mag-Ox PO 400 mg DAILY [facility] Administration Meclizine HCl 25 mg 04/07/19 23:57 Antivert PO TID PRN Vertigo Metoprolol Tartrate 50 mg 04/08/19 10:00 04/09/19 09:50 Lopressor PO 50 mg DAILY [facility] Administration Miscellaneous Medication 5 mcg 04/08/19 10:00 Liothyronine Sodium [Cytomel] PO DAILY [facility] Miscellaneous Medication 120 mg 04/08/19 10:00 Lurasidone Hcl [Latuda] PO QDAY [facility] Miscellaneous Medication 1 tab 04/08/19 10:00 Nabumetone (Nf) PO BID [facility] Miscellaneous Medication 1 tab 04/08/19 10:00 Topiramate [Qudexy Xr] PO DAILY [facility] Ondansetron HCl 4 mg 04/07/19 21:42 Zofran IV Q8H PRN Nausea And Vomiting Oxycodone/Acetaminophen 1 tab 04/07/19 21:42 04/09/19 05:55 Percocet 5/325 PO 1 tab Q6H PRN Administration Pain, Moderate (4-6) Pantoprazole Sodium 40 mg 04/08/19 10:00 04/09/19 09:48 Protonix PO 40 mg DAILY [facility] Administration Pregabalin 75 mg 04/08/19 10:00 04/09/19 09:49 Lyrica PO 75 mg BID [facility] Administration Sodium Chloride 10 ml 04/07/19 22:00 04/09/19 09:51 Sodium Chloride Flush Syringe 10 Ml IV 10 ml BID [facility] Administration Sodium Chloride 10 ml 04/07/19 21:42 Sodium Chloride Flush Syringe 10 Ml IV PRN PRN LINE FLUSH
[2019-04-09 12:38] VITALS: BP 104/65
[2019-04-09] MEDS ORDERED: TORADOL IV SCH (14:00)
--- NOTE | 2019-04-09 14:55 | Cat Scan Report ---
CTA CHEST WITH CONTRAST INDICATION : chest pain, elevated d-dimer. TECHNIQUE: Axial imaging performed through the chest, with contrast bolus timing set to maximize opa cification of the pulmonary arteries. Sagittal and coronal reformatted images. 3-plane MIP reformatte d images were obtained. All CT scans at this location are performed using CT dose reduction for ALAR A by means of automated exposure control. Omnipaque 350 100 mL of intravenous contrast administered. COMPARISON: None FINDINGS: Bolus: Contrast bolus timing is adequate. PTE: No filling defect is present to suggest PTE. Mediastinum: Heart and great vessels appear normal. No pathologic mediastinal adenopathy. Lungs: Lungs are clear. Trace bilateral pleural effusions are noted. No pneumothorax. Upper abdomen: Limited imaging of the upper abdomen shows nothing acute. Bones: Degenerative changes in the spine with nothing acute. IMPRESSION: Negative for pulmonary embolus. Trace bilateral pleural effusions. Signer Name: Reagan Romano Jr, MD Signed: 04/09/2019 2:50 PM Workstation Name: [id number]
--- NOTE | 2019-04-09 17:20 | Discharge Summary ---
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 She had a stress test last year which was negative. She was seen and evaluated in ED and admitted tpo rule out acute co ronary syndrome. Cardiology was consulyed and she was seen by [facility] ironer, started on trial of Ketorolac for musculoskeletal pain. Chest pain subsided. Cardiology determined chest pain was non-cardiac and was musculoskeletal and she was discharged home on 04/09/19. Total time spent in discharge, 33 mins Disposition: DC-01 TO HOME OR SELFCARE - Discharge Diagnoses (1) Musculoskeletal chest pain Status: Acute (2) Bipolar disorder Status: Acute Qualifiers: Active/Remission status: remission status unspecified Qualified Code(s): F31.9 - Bipolar disorder, unspecified (3) Chest pain Status: Acute Qualifiers: Chest pain type: other chest pain Qualified Code(s): R07.89 - Other chest pain; R07.8 - Other chest pain (4) Diabetes mellitus type 2 in obese Status: Acute (5) HTN (hypertension), benign Status: Acute (6) Hypothyroidism Status: Acute Core Measure Documentation - Palliative Care Palliative Care/ Comfort Measures: Not Applicable - Core Measures Any of the following diagnoses?: none Exam - Constitutional Vitals: Temp Pulse Resp BP Pulse Ox 98.3 F 78 18 104/65 100 04/09/19 12:36 04/09/19 12:36 04/09/19 12:36 04/09/19 12:36 04/09/19 12:36 Plan Activity: no restrictions Diet: low fat, low cholesterol, low salt, diabetic Additional Instructions: 1.Follow up with PCP in 1 week. Follow up with: PRIMARY CARE, [Primary Care Provider] - 3-5 Days
== END 2019-04-09 18:00 | disposition home or self-care (01) ==
LOC: ED 17:23 → 4A 21:42
PROVIDERS: ADMIT Internal Medicine; ATTEND Internal Medicine
DX: R07.89 Other chest pain (principal); F31.9 Bipolar disorder, unspecified; E78.5 Hyperlipidemia, unspecified; E03.9 Hypothyroidism, unspecified; M79.7 Fibromyalgia; G43.909 Migraine, unspecified, not intractable, without status migrainosus; G47.33 Obstructive sleep apnea (adult) (pediatric); G40.909 Epilepsy, unspecified, not intractable, without status epilepticus; E66.9 Obesity, unspecified; I12.9 Hypertensive chronic kidney disease with stage 1 through stage 4 chronic kidney disease, or unspecified chronic kidney disease; E11.22 Type 2 diabetes mellitus with diabetic chronic kidney disease; N18.9 Chronic kidney disease, unspecified; Z86.73 Personal history of transient ischemic attack (TIA), and cerebral infarction without residual deficits; Z79.899 Other long term (current) drug therapy
CPT/HCPCS: 36415; 71046; 71275; 80048; 80053; 82550; 82553; 82962; 84484; 84703; 85025; 85379; 93005; 93010; 94660; 94760; 96372; 96374; 96375; 99284; G0378; J1650; J1885; J2270; J2405; J3010; Q9967

== ENCOUNTER 2019-04-16 11:45 | Emergency (ER) | payer MEDICARE ==
[2019-04-16] MEDS ORDERED: NACL 0.9% 1000 ML 1,000 ML IV ONE (12:02)
[2019-04-16 12:40] LABS: Hematocrit 35.8 % (30.3-42.9); Hemoglobin 11.7 gm/dl (10.1-14.3); Mean Corpuscular HGB Conc 33 % (30-34); Mean Corpuscular Volume 89 fl (79-97); Platelet Count 487 K/mm3 (140-440); Red Cell Distribution Width 14.8 % (13.2-15.2)
[2019-04-16 12:48] LABS: INR 0.94 (0.87-1.13)
[2019-04-16 12:52] LABS: Albumin 4.6 g/dL (3.9-5); Calcium 10.1 mg/dL (8.4-10.2)
[2019-04-16 12:57] LABS: Partial Thromboplastin Time TNR Sec. (24.2-36.6)
--- NOTE | 2019-04-16 13:30 | XRay Report ---
CHEST 1 VIEW INDICATION: syncope upt. COMPARISON: 03/08/2019. FINDINGS: Support devices: None. Heart: Within normal limits. Lungs/Pleura: No acute air space or interstitial disease. Additional findings: None. IMPRESSION: No acute abnormality. Signer Name: Daniel Delacruz MD Signed: 04/16/2019 1:25 PM Workstation Name: [id number]
--- NOTE | 2019-04-16 13:56 | Cat Scan Report ---
CT HEAD WITHOUT CONTRAST INDICATION: syncope , dizziness, headache TECHNIQUE: All CT scans at this location are performed using CT dose reduction for ALARA by means of automated exposure control. COMPARISON: 09/17/2018 FINDINGS: BRAIN: No hemorrhage or mass effect are seen. No evidence of acute infarction is noted. ORBITS: Normal as visualized. SOFT TISSUES OF HEAD: Normal. CALVARIUM: Normal. VISUALIZED PARANASAL SINUSES AND MASTOID AIR CELLS: Clear. ADDITIONAL FINDINGS: None. IMPRESSION: No acute intracranial abnormality. Signer Name: Rafael Maloney MD Signed: 04/16/2019 1:52 PM Workstation Name: [id number]
[2019-04-16 14:40] LABS: Partial Thromboplastin Time 31.1 Sec. (24.2-36.6)
--- NOTE | 2019-04-16 15:48 | Nuclear Medicine Report ---
Nuclear medicine ventilation/perfusion lung imaging. 04/16/2019. HISTORY: Shortness of breath. COMPARISON: Chest x-ray 04/16/2019. Tracers: Xenon-133 gas 15 mCi inhalation and technetium 99m MAA 5 mCi IV injection. FINDINGS: Nuclear medicine ventilation and perfusion lung imaging were performed. Both are relatively homogeneous. Negative for suspicious ventilation or perfusion defect. IMPRESSION: Low probability for pulmonary embolus. Signer Name: Daniel Delacruz MD Signed: 04/16/2019 3:43 PM Workstation Name: [id number]
[2019-04-16 16:03] VITALS: BP 104/65
--- NOTE | 2019-04-16 16:08 | Emergency Department Report ---
ED Syncope HPI - General Chief Complaint: Syncope Stated Complaint: SYNCOPY Time Seen by Provider: 04/16/19 11:56 Source: patient, EMS - History of Present Illness Initial Comments: 43-year-old female with history of bipolar, seizure disorder, anxiety, asthma, hypothyroidism, diabetes, lupus, fibromyalgia, migraines presents to ED following a syncopal episode at doctor's office. Patient currently reports headache similar to her usual migraines. Patient denies chest pain, shortness of breath, vomiting, diarrhea, fever. Timing/Prior Episodes: single episode today Precipitating Factors: Positive: lightheadedness Context: standing Loss of Consciousness: brief (seconds) Current Symptoms: headache. denies: chest pain, diaphoresis - Related Data Allergies/Adverse Reactions: Allergies aspirin Allergy (Verified 04/16/19 11:58) Unknown butorphanol tartrate [From Stadol] Allergy (Verified 01/20/18 07:51) Seizure latex Allergy (Verified 01/20/18 07:51) Hives NSAIDS (Non-Steroidal Anti-Inflamma Allergy (Verified 04/16/19 11:58) Unknown Home Medications: Ambulatory Orders Levothyroxine [Synthroid] 150 mcg PO BID 04/07/19 Linaclotide [Linzess] 290 mcg PO DAILY 04/07/19 Liothyronine Sodium [Cytomel] 5 mcg PO DAILY 04/07/19 Lurasidone HCl [Latuda] 120 mg PO QDAY 04/07/19 Meclizine [Antivert] 25 mg PO TID PRN 04/07/19 Metoprolol [Lopressor TAB] 50 mg PO DAILY 04/07/19 Topiramate [Qudexy Xr] 1 tab PO DAILY 04/07/19 clonazePAM [Klonopin] 1 mg PO DAILY 04/07/19 Fluticasone/Salmeterol [Advair Diskus 250-50 mcg] 1 puff IH BID 04/16/19 Levothyroxine [Synthroid] 300 mcg PO QDAY 04/16/19 Linaclotide [Linzess] 290 mcg PO QDAY 04/16/19 Losartan [Cozaar] 100 mg PO QDAY 04/16/19 Lurasidone HCl [Latuda] 120 mg PO QDAY 04/16/19 Meclizine [Antivert] 25 mg PO TID PRN 04/16/19 Metoprolol Xl [Metoprolol SUCCINATE ER TAB] 50 mg PO QDAY 04/16/19 Topiramate [Topamax] 200 mg PO QDAY 04/16/19 Trazodone HCl 150 mg PO QDAY 04/16/19 diphenhydrAMINE [Benadryl CAP] 50 mg PO QDAY 04/16/19 hydroCHLOROthiazide [HCTZ] 25 mg PO QDAY 04/16/19 ED Review of Systems ROS: Stated complaint: SYNCOPY Other details as noted in HPI Comment: All other systems reviewed and negative Constitutional: denies: chills, fever Respiratory: denies: shortness of breath Cardiovascular: denies: chest pain Gastrointestinal: denies: abdominal pain, vomiting, diarrhea Neurological: headache ED Past Medical Hx - Past Medical History Previous Medical History?: Yes Hx Hypertension: Yes Hx CVA: Yes (TIA) Hx Diabetes: Yes Hx Pulmonary Embolism: No Hx Renal Disease: No Hx Sickle Cell Disease: No Hx Arthritis: Yes (knees and back) Hx Headaches / Migraines: Yes Hx Seizures: Yes Hx Kidney Stones: Yes Hx Psychiatric Treatment: Yes (Bipolar, Panic Attacks, Anxiety, MDD) Hx Asthma: Yes Hx Tuberculosis: No Additional medical history: lupus, Gastroparesis, Neuropathy,. high cholesterol, Endometriosis,. bipolar, Fibromylagia, hypothyroidism. anxiety PANIC ATTACK, carpal tunnel syndrome - Surgical History Past Surgical History?: Yes Additional Surgical History: "rectal repair" after vaginal delivery. lump removed from right arm - Social History Smoking Status: Never Smoker Substance Use Type: None - Medications Home Medications: Home Medications Medication Instructions Recorded Confirmed Last Taken Type Levothyroxine [Synthroid] 150 mcg PO BID 04/07/19 04/16/19 04/16/19 History Linaclotide [Linzess] 290 mcg PO DAILY 04/07/19 04/16/19 04/16/19 History Liothyronine Sodium [Cytomel] 5 mcg PO DAILY 04/07/19 04/16/19 04/16/19 History Lurasidone HCl [Latuda] 120 mg PO QDAY 04/07/19 04/16/19 04/16/19 History Meclizine [Antivert] 25 mg PO TID PRN 04/07/19 04/16/19 04/16/19 History Metoprolol [Lopressor TAB] 50 mg PO DAILY 04/07/19 04/16/19 04/16/19 History Topiramate [Qudexy Xr] 1 tab PO DAILY 04/07/19 04/16/19 04/16/19 History clonazePAM [Klonopin] 1 mg PO DAILY 04/07/19 04/16/19 04/16/19 History Fluticasone/Salmeterol [Advair 1 puff IH BID 04/16/19 04/16/19 04/16/19 History Diskus 250-50 mcg] Levothyroxine [Synthroid] 300 mcg PO QDAY 04/16/19 04/16/19 04/16/19 History Linaclotide [Linzess] 290 mcg PO QDAY 04/16/19 04/16/19 04/16/19 History Losartan [Cozaar] 100 mg PO QDAY 04/16/19 04/16/19 04/16/19 History Lurasidone HCl [Latuda] 120 mg PO QDAY 04/16/19 04/16/19 04/16/19 History Meclizine [Antivert] 25 mg PO TID PRN 04/16/19 04/16/19 04/16/19 History Metoprolol Xl [Metoprolol 50 mg PO QDAY 04/16/19 04/16/19 04/16/19 History SUCCINATE ER TAB] Topiramate [Topamax] 200 mg PO QDAY 04/16/19 04/16/19 04/16/19 History Trazodone HCl 150 mg PO QDAY 04/16/19 04/16/19 04/16/19 History diphenhydrAMINE [Benadryl CAP] 50 mg PO QDAY 04/16/19 04/16/19 04/16/19 History hydroCHLOROthiazide [HCTZ] 25 mg PO QDAY 04/16/19 04/16/19 04/16/19 History ED Physical Exam - General Limitations: No Limitations General appearance: alert, in no apparent distress - Head Head exam: Present: atraumatic, normocephalic - Eye Eye exam: Present: normal appearance, PERRL, EOMI - ENT ENT exam: Present: mucous membranes moist - Neck Neck exam: Present: normal inspection - Respiratory Respiratory exam: Present: normal lung sounds bilaterally. Absent: respiratory distress - Cardiovascular Cardiovascular Exam: Present: regular rate, normal rhythm - GI/Abdominal GI/Abdominal exam: Present: soft. Absent: distended, tenderness - Extremities Exam Extremities exam: Present: normal inspection - Neurological Exam Neurological exam: Present: alert, oriented X3, CN II-XII intact. Absent: motor sensory deficit - Psychiatric Psychiatric exam: Present: normal affect, normal mood - Skin Skin exam: Present: warm, dry, intact, normal color ED Course Vital Signs 04/16/19 04/16/19 04/16/19 11:54 11:55 12:01 Temperature 98 F Pulse Rate 79 80 80 Pulse Rate [ Lying] Pulse Rate [ Sitting] Pulse Rate [ Standing] Respiratory 16 17 Rate Blood Pressure 114/72 114/72 Blood Pressure [Lying] Blood Pressure [Sitting] Blood Pressure [Standing] O2 Sat by Pulse 96 97 Oximetry 04/16/19 04/16/19 04/16/19 12:15 12:31 12:45 Temperature Pulse Rate 77 77 71 Pulse Rate [ Lying] Pulse Rate [ Sitting] Pulse Rate [ Standing] Respiratory 16 12 18 Rate Blood Pressure 114/72 112/77 112/77 Blood Pressure [Lying] Blood Pressure [Sitting] Blood Pressure [Standing] O2 Sat by Pulse 98 98 95 Oximetry 04/16/19 04/16/19 04/16/19 13:01 13:46 13:49 Temperature Pulse Rate 69 69 Pulse Rate [ 69 Lying] Pulse Rate [ 68 Sitting] Pulse Rate [ 79 Standing] Respiratory 13 15 Rate Blood Pressure 102/73 112/77 Blood Pressure 106/68 [Lying] Blood Pressure 108/74 [Sitting] Blood Pressure 105/73 [Standing] O2 Sat by Pulse 96 98 Oximetry 04/16/19 04/16/19 04/16/19 14:01 14:15 14:31 Temperature Pulse Rate 73 69 66 Pulse Rate [ Lying] Pulse Rate [ Sitting] Pulse Rate [ Standing] Respiratory 16 13 14 Rate Blood Pressure 105/73 102/73 111/48 Blood Pressure [Lying] Blood Pressure [Sitting] Blood Pressure [Standing] O2 Sat by Pulse 96 96 Oximetry 04/16/19 04/16/19 04/16/19 15:01 15:42 16:01 Temperature Pulse Rate 67 74 73 Pulse Rate [ Lying] Pulse Rate [ Sitting] Pulse Rate [ Standing] Respiratory 13 13 14 Rate Blood Pressure 105/73 105/73 104/65 Blood Pressure [Lying] Blood Pressure [Sitting] Blood Pressure [Standing] O2 Sat by Pulse 93 93 96 Oximetry ED Medical Decision Making - Lab Data Result diagrams: 04/16/19 12:08 04/16/19 12:08 - EKG Data -: EKG Interpreted by Me EKG shows normal: sinus rhythm, axis, intervals, QRS complexes Rate: normal - EKG Data Interpretation: nonspecific ST-T wave ayaz - Radiology Data Radiology results: report reviewed, image reviewed - Medical Decision Making 43-year-old female presents to ED with syncopal episode. Patient feeling much better at this time. EKG normal, with normal troponin. He reported headache similar to her previous migraines. CT head was negative for acute findings. Neuro exam is normal. D-dimer was mildly elevated, so a VQ scan was obtained due to difficulty obtaining appropriate IV access. VQ scan had low probability for PE. Patient currently ambulatory without difficulty. It feels okay for dis charge home. Advised outpatient follow-up. Return precautions given. - Differential Diagnosis dehydration, arrythmia, PE Critical care attestation.: If time is entered above; I have spent that time in minutes in the direct care of this critically ill patient, excluding procedure time. ED Disposition Clinical Impression: Syncope Disposition: DC-01 TO HOME OR SELFCARE Is pt being admited?: No Condition: Stable Instructions: Syncope (ED) Referrals: PRIMARY CAREMD [Referring] - 3-5 Days [facility] [Provider Group] - 3-5 Days Time of Disposition: 16:06
[2019-04-16 16:26] LABS: Basophils % (Manual) 0 % (0.0-1.8); Total Cells Counted 100
[2019-04-16 16:27] LABS: RBC Morphology Normal
== END 2019-04-16 16:17 | disposition home or self-care (01) ==
LOC: ED 11:45
DX: R55 Syncope and collapse (principal); G43.909 Migraine, unspecified, not intractable, without status migrainosus; I10 Essential (primary) hypertension; E11.9 Type 2 diabetes mellitus without complications; M19.90 Unspecified osteoarthritis, unspecified site; F31.9 Bipolar disorder, unspecified; F32.9 Major depressive disorder, single episode, unspecified; E78.00 Pure hypercholesterolemia, unspecified; M79.7 Fibromyalgia; Z79.899 Other long term (current) drug therapy; Z86.73 Personal history of transient ischemic attack (TIA), and cerebral infarction without residual deficits; Z87.442 Personal history of urinary calculi; Z91.040 Latex allergy status; Z88.8 Allergy status to other drugs, medicaments and biological substances
CPT/HCPCS: 36415; 70450; 71045; 78582; 80053; 84484; 84703; 85007; 85025; 85379; 85610; 85730; 93005; 93010; 96360; 99285; A9540; A9558; J7030

== ENCOUNTER 2019-04-26 10:45 | Emergency (ER) | payer MEDICARE ==
[2019-04-26 10:56] VITALS: BP 139/92
[2019-04-26 11:54] LABS: Bacteria,Urine 1+ /HPF (Negative); Bilirubin,Urine NEG (Negative); Blood,Urine NEG (Negative); Color,Urine Yellow (Yellow); Mucus,Urine FEW /HPF; Protein,Urine <15 mg/dL mg/dL (Negative); Urobilinogen,Urine < 2.0 mg/dL (<2.0)
[2019-04-26 11:55] LABS: Basophils % (Auto) 0.5 % (0.0-1.8); Eosinophils # (Auto) 0.2 K/mm3 (0.0-0.4); Eosinophils % (Auto) 2.8 % (0.0-4.3); Hematocrit 29.3 % (30.3-42.9); Lymphocytes # (Auto) 3.4 K/mm3 (1.2-5.4); Lymphocytes % (Auto) 45.8 % (13.4-35.0); Mean Corpuscular HGB Conc 34 % (30-34); Mean Corpuscular Volume 88 fl (79-97); Monocytes # (Auto) 0.4 K/mm3 (0.0-0.8); Monocytes % (Auto) 4.8 % (0.0-7.3); Platelet Count 409 K/mm3 (140-440); Red Blood Count 3.32 M/mm3 (3.65-5.03); Red Cell Distribution Width 14.4 % (13.2-15.2)
--- NOTE | 2019-04-26 12:16 | Emergency Department Report ---
ED General Adult HPI - General Chief complaint: Upper Respiratory Infection Stated complaint: STOMACH PAIN/SPITTING UP Time Seen by Provider: 04/26/19 11:08 Source: patient Mode of arrival: Ambulatory Limitations: No Limitations - History of Present Illness Initial comments: The patient is a 44-year-old female presents emergency room complains of spitti ng up yellow-green mucus that began 2 weeks ago. States she has associated dry mouth and generalized abdominal cramping. She denies any fever, cough, vomiting, diarrhea, abdominal pain. States she had a normal bowel movement yesterday. She states that she called her GI office Dr. Choi this morning was advised to be evaluated in the emergency room. Past medical history of gastroparesis. denies any abdominal surgeries. - Related Data Home Medications Medication Instructions Recorded Confirmed Last Taken Levothyroxine [Synthroid] 150 mcg PO BID 04/07/19 04/16/19 04/16/19 Linaclotide [Linzess] 290 mcg PO DAILY 04/07/19 04/16/19 04/16/19 Liothyronine Sodium [Cytomel] 5 mcg PO DAILY 04/07/19 04/16/19 04/16/19 Lurasidone HCl [Latuda] 120 mg PO QDAY 04/07/19 04/16/19 04/16/19 Meclizine [Antivert] 25 mg PO TID PRN 04/07/19 04/16/19 04/16/19 Metoprolol [Lopressor TAB] 50 mg PO DAILY 04/07/19 04/16/19 04/16/19 Topiramate [Qudexy Xr] 1 tab PO DAILY 04/07/19 04/16/19 04/16/19 clonazePAM [Klonopin] 1 mg PO DAILY 04/07/19 04/16/19 04/16/19 Fluticasone/Salmeterol [Advair 1 puff IH BID 04/16/19 04/16/19 04/16/19 Diskus 250-50 mcg] Levothyroxine [Synthroid] 300 mcg PO QDAY 04/16/19 04/16/19 04/16/19 Linaclotide [Linzess] 290 mcg PO QDAY 04/16/19 04/16/19 04/16/19 Losartan [Cozaar] 100 mg PO QDAY 04/16/19 04/16/19 04/16/19 Lurasidone HCl [Latuda] 120 mg PO QDAY 04/16/19 04/16/19 04/16/19 Meclizine [Antivert] 25 mg PO TID PRN 04/16/19 04/16/19 04/16/19 Metoprolol Xl [Metoprolol 50 mg PO QDAY 04/16/19 04/16/19 04/16/19 SUCCINATE ER TAB] Topiramate [Topamax] 200 mg PO QDAY 04/16/19 04/16/19 04/16/19 Trazodone HCl 150 mg PO QDAY 04/16/19 04/16/19 04/16/19 diphenhydrAMINE [Benadryl CAP] 50 mg PO QDAY 04/16/19 04/16/19 04/16/19 hydroCHLOROthiazide [HCTZ] 25 mg PO QDAY 04/16/19 04/16/19 04/16/19 Previous Rx's Medication Instructions Recorded Last Taken Type Dicyclomine [Bentyl] 10 mg PO QID PRN #20 capsule 04/26/19 Unknown Rx Allergies Allergy/AdvReac Type Severity Reaction Status Date / Time aspirin Allergy Unknown Verified 04/16/19 11:58 butorphanol tartrate Allergy Seizure Verified 01/20/18 07:51 [From Stadol] latex Allergy Hives Verified 01/20/18 07:51 NSAIDS (Non-Steroidal Allergy Unknown Verified 04/16/19 11:58 Anti-Inflamma ED Review of Systems ROS: Stated complaint: STOMACH PAIN/SPITTING UP Other details as noted in HPI Comment: All other systems reviewed and negative ED Past Medical Hx - Past Medical History Previous Medical History?: Yes Hx Hypertension: Yes Hx CVA: Yes (TIA) Hx Diabetes: Yes Hx Pulmonary Embolism: No Hx Renal Disease: No Hx Sickle Cell Disease: No Hx Arthritis: Yes (knees and back) Hx Headaches / Migraines: Yes Hx Seizures: Yes Hx Kidney Stones: Yes Hx Psychiatric Treatment: Yes (Bipolar, Panic Attacks, Anxiety, MDD) Hx Asthma: Yes Hx Tuberculosis: No Additional medical history: lupus, Gastroparesis, Neuropathy,. high cholesterol, Endometriosis,. bipolar, Fibromylagia, hypothyroidism. anxiety PANIC ATTACK, carpal tunnel syndrome - Surgical History Past Surgical History?: Yes Additional Surgical History: "rectal repair" after vaginal delivery. lump removed from right arm - Social History Smoking Status: Never Smoker Substance Use Type: None - Medications Home Medications: Home Medications Medication Instructions Recorded Confirmed Last Taken Type Levothyroxine [Synthroid] 150 mcg PO BID 04/07/19 04/16/19 04/16/19 History Linaclotide [Linzess] 290 mcg PO DAILY 04/07/19 04/16/19 04/16/19 History Liothyronine Sodium [Cytomel] 5 mcg PO DAILY 04/07/19 04/16/19 04/16/19 History Lurasidone HCl [Latuda] 120 mg PO QDAY 04/07/19 04/16/19 04/16/19 History Meclizine [Antivert] 25 mg PO TID PRN 04/07/19 04/16/19 04/16/19 History Metoprolol [Lopressor TAB] 50 mg PO DAILY 04/07/19 04/16/19 04/16/19 History Topiramate [Qudexy Xr] 1 tab PO DAILY 04/07/19 04/16/19 04/16/19 History clonazePAM [Klonopin] 1 mg PO DAILY 04/07/19 04/16/19 04/16/19 History Fluticasone/Salmeterol [Advair 1 puff IH BID 04/16/19 04/16/19 04/16/19 History Diskus 250-50 mcg] Levothyroxine [Synthroid] 300 mcg PO QDAY 04/16/19 04/16/19 04/16/19 History Linaclotide [Linzess] 290 mcg PO QDAY 04/16/19 04/16/19 04/16/19 History Losartan [Cozaar] 100 mg PO QDAY 04/16/19 04/16/19 04/16/19 History Lurasidone HCl [Latuda] 120 mg PO QDAY 04/16/19 04/16/19 04/16/19 History Meclizine [Antivert] 25 mg PO TID PRN 04/16/19 04/16/19 04/16/19 History Metoprolol Xl [Metoprolol 50 mg PO QDAY 04/16/19 04/16/19 04/16/19 History SUCCINATE ER TAB] Topiramate [Topamax] 200 mg PO QDAY 04/16/19 04/16/19 04/16/19 History Trazodone HCl 150 mg PO QDAY 04/16/19 04/16/19 04/16/19 History diphenhydrAMINE [Benadryl CAP] 50 mg PO QDAY 04/16/19 04/16/19 04/16/19 History hydroCHLOROthiazide [HCTZ] 25 mg PO QDAY 04/16/19 04/16/19 04/16/19 History Dicyclomine [Bentyl] 10 mg PO QID PRN #20 capsule 04/26/19 Unknown Rx ED Physical Exam - General Limitations: No Limitations General appearance: alert, in no apparent distress - Head Head exam: Present: atraumatic, normocephalic - Eye Eye exam: Present: normal appearance, PERRL - ENT ENT exam: Present: normal orophraynx, mucous membranes moist, other (normal appearance of tongue, oral mucosa, and oropharynx) - Respiratory Respiratory exam: Present: normal lung sounds bilaterally. Absent: respiratory distress, wheezes, rales, rhonchi, stridor, chest wall tenderness, accessory muscle use, decreased breath sounds, prolonged expiratory - Cardiovascular Cardiovascular Exam: Present: regular rate, normal rhythm, normal heart sounds. Absent: systolic murmur, diastolic murmur, rubs, gallop - GI/Abdominal GI/Abdominal exam: Present: soft, normal bowel sounds, other (protuberant abdomen). Absent: distended, tenderness, guarding, rebound, rigid - Neurological Exam Neurological exam: Present: alert, oriented X3 - Psychiatric Psychiatric exam: Present: normal affect, normal mood - Skin Skin exam: Present: warm, dry, intact ED Course Vital Signs 04/26/19 04/26/19 04/26/19 10:54 13:40 13:48 Temperature 98.3 F Pulse Rate 88 77 Respiratory 20 18 18 Rate Blood Pressure 139/92 O2 Sat by Pulse 98 100 100 Oximetry ED Medical Decision Making - Lab Data Result diagrams: 04/26/19 11:38 04/26/19 11:38 Lab Results 04/26/19 04/26/19 04/26/19 Range/Units 11:00 11:38 11:38 WBC 7.5 (4.5-11.0) K/mm3 RBC 3.32 L (3.65-5.03) M/mm3 Hgb 10.0 L (10.1-14.3) gm/dl Hct 29.3 L (30.3-42.9) % MCV 88 (79-97) fl MCH 30 (28-32) pg MCHC 34 (30-34) % RDW 14.4 (13.2-15.2) % Plt Count 409 (140-440) K/mm3 Lymph % (Auto) 45.8 H (13.4-35.0) % [place] % (Auto) 4.8 (0.0-7.3) % Eos % (Auto) 2.8 (0.0-4.3) % Baso % (Auto) 0.5 (0.0-1.8) % Lymph # 3.4 (1.2-5.4) K/mm3 [place] # 0.4 (0.0-0.8) K/mm3 Eos # 0.2 (0.0-0.4) K/mm3 Baso # 0.0 (0.0-0.1) K/mm3 Seg Neutrophils % 46.1 (40.0-70.0) % Seg Neutrophils # 3.5 (1.8-7.7) K/mm3 Sodium 139 (137-145) mmol/L Potassium 3.8 (3.6-5.0) mmol/L Chloride 102.0 (98-107) mmol/L Carbon Dioxide 24 (22-30) mmol/L Anion Gap 17 mmol/L BUN 11 (7-17) mg/dL Creatinine 1.2 (0.7-1.2) mg/dL Estimated GFR 60 ml/min BUN/Creatinine Ratio 9 % Glucose 109 H (65-100) mg/dL POC Glucose 122 H (70-105) Calcium 9.1 (8.4-10.2) mg/dL Total Bilirubin 0.20 (0.1-1.2) mg/dL AST 33 (5-40) units/L ALT 30 (7-56) units/L Alkaline Phosphatase 65 (35-129) units/L Total Protein 7.9 (6.3-8.2) g/dL Albumin 4.0 (3.9-5) g/dL Albumin/Globulin Ratio 1.0 % Lipase 12 L (13-60) units/L HCG, Qual (Negative) Urine Color (Yellow) Urine Turbidity (Clear) Urine pH (5.0-7.0) Ur Specific [place] (1.003-1.030) Urine Protein (Negative) mg/dL Urine Glucose (UA) (Negative) mg/dL Urine Ketones (Negative) mg/dL Urine Blood (Negative) Urine Nitrite (Negative) Urine Bilirubin (Negative) Urine Urobilinogen (<2.0) mg/dL Ur Leukocyte Esterase (Negative) Urine WBC (Auto) (0.0-6.0) /HPF Urine RBC (Auto) (0.0-6.0) /HPF U Epithel Cells (Auto) (0-13.0) /HPF Urine Bacteria (Auto) (Negative) /HPF Urine Mucus /HPF 04/26/19 04/26/19 Range/Units 11:38 11:38 WBC (4.5-11.0) K/mm3 RBC (3.65-5.03) M/mm3 Hgb (10.1-14.3) gm/dl Hct (30.3-42.9) % MCV (79-97) fl MCH (28-32) pg MCHC (30-34) % RDW (13.2-15.2) % Plt Count (140-440) K/mm3 Lymph % (Auto) (13.4-35.0) % [place] % (Auto) (0.0-7.3) % Eos % (Auto) (0.0-4.3) % Baso % (Auto) (0.0-1.8) % Lymph # (1.2-5.4) K/mm3 [place] # (0.0-0.8) K/mm3 Eos # (0.0-0.4) K/mm3 Baso # (0.0-0.1) K/mm3 Seg Neutrophils % (40.0-70.0) % Seg Neutrophils # (1.8-7.7) K/mm3 Sodium (137-145) mmol/L Potassium (3.6-5.0) mmol/L Chloride (98-107) mmol/L Carbon Dioxide (22-30) mmol/L Anion Gap mmol/L BUN (7-17) mg/dL Creatinine (0.7-1.2) mg/dL Estimated GFR ml/min BUN/Creatinine Ratio % Glucose (65-100) mg/dL POC Glucose (70-105) Calcium (8.4-10.2) mg/dL Total Bilirubin (0.1-1.2) mg/dL AST (5-40) units/L ALT (7-56) units/L Alkaline Phosphatase (35-129) units/L Total Protein (6.3-8.2) g/dL Albumin (3.9-5) g/dL Albumin/Globulin Ratio % Lipase (13-60) units/L HCG, Qual Negative (Negative) Urine Color Yellow (Yellow) Urine Turbidity Clear (Clear) Urine pH 6.0 (5.0-7.0) Ur Specific [place] 1.014 (1.003-1.030) Urine Protein <15 mg/dl (Negative) mg/dL Urine Glucose (UA) Neg (Negative) mg/dL Urine Ketones Neg (Negative) mg/dL Urine Blood Neg (Negative) Urine Nitrite Neg (Negative) Urine Bilirubin Neg (Negative) Urine Urobilinogen < 2.0 (<2.0) mg/dL Ur Leukocyte Esterase Sm (Negative) Urine WBC (Auto) 2.0 (0.0-6.0) /HPF Urine RBC (Auto) 1.0 (0.0-6.0) /HPF U Epithel Cells (Auto) 2.0 (0-13.0) /HPF Urine Bacteria (Auto) 1+ (Negative) /HPF Urine Mucus Few /HPF - Radiology Data Radiology results: report reviewed ABDOMEN 4 VIEW(S) INDICATION: Generalized abdominal pain/cramping with nausea. COMPARISON: CT of the abdomen and pelvis with contrast from 12/05/2018. FINDINGS: Bowel gas pattern: Within normal limits. No dilated loops of large or small bowel. Free air: None. Calcified gallstones: None seen. Calcified urinary tract calculi: None seen. Chest: No acute findings. Additional Findings: None. Skeletal structures: No acute abnormality. IMPRESSION: No acute findings. Signer Name: Mingo Capps MD Signed: 04/26/2019 1:05 PM Workstation Name: [id number] Transcribed By: JAISON Dictated By: Mingo Capps MD Electronically Authenticated By: Mingo Capps MD Signed Date/Time: 04/26/19 0245 - Medical Decision Making The patient is a 44-year-old female presents emergency room complains of spitting up yellow-green mucus that began 2 weeks ago. States she has assoc iated dry mouth and generalized abdominal cramping. She denies any fever, cough, vomiting, diarrhea, abdominal pain. States she had a normal bowel movement yesterday. She states that she called her GI office Dr. Choi this morning was advised to be evaluated in the emergency room. Past medical history of gastroparesis. denies any abdominal surgeries. vitals are normal. no abd tenderness on exam, lungs are clear bilaterally. labs are stable. UA without evidence of UTI. XR of abdomen with chest with no acute process. pt symptoms consistent with viral URI given normal WBC and afebrile. pt given bentyl for her abdominal cramping. discussed with pt that dry mouth could be due to certain medications and to have her primary care doctor look at her medication list and dosages. advised pt to please take medication as prescribed as needed. drink plenty of fluids. Follow-up with your GI doctor Dr. Choi and a primary care doctor in the next 2-3 days. Return to the emergency room for any new or worsening symptoms. - Differential Diagnosis URI, PNA, viral syndrome, allergies Critical care attestation.: If time is entered above; I have spent that time in minutes in the direct care of this critically ill patient, excluding procedure time. ED Disposition Clinical Impression: Gastroparesis, Abdominal cramping URI (upper respiratory infection) Qualifiers: URI type: unspecified viral URI Qualified Code(s): J06.9 - Acute upper respiratory infection, unspecified Disposition: - TO HOME OR SELFCARE Is pt being admited?: No Does the pt Need Aspirin: No Condition: Stable Instructions: Upper Respiratory Infection (ED) Additional Instructions: Please take medication as prescribed as needed. drink plenty of fluids. Follow- up with your GI doctor Dr. Choi and a primary care doctor in the next 2-3 days. Return to the emergency room for any new or worsening symptoms. Prescriptions: Dicyclomine [Bentyl] 10 mg PO QID PRN #20 capsule PRN Reason: abdominal cramping Referrals: YEE CHOI MD [Staff Physician] - 2-3 Days [facility] [Provider Group] - 2-3 Days Time of Disposition: 13:26 Print Language: ZAMBIAN
[2019-04-26 12:18] LABS: Calcium 9.1 mg/dL (8.4-10.2)
--- NOTE | 2019-04-26 13:10 | XRay Report ---
ABDOMEN 4 VIEW(S) INDICATION: Generalized abdominal pain/cramping with nausea. COMPARISON: CT of the abdomen and pelvis with contrast from 12/05/2018. FINDINGS: Bowel gas pattern: Within normal limits. No dilated loops of large or small bowel. Free air: None. Calcified gallstones: None seen. Calcified urinary tract calculi: None seen. Chest: No acute findings. Additional Findings: None. Skeletal structures: No acute abnormality. IMPRESSION: No acute findings. Signer Name: Mingo Capps MD Signed: 04/26/2019 1:05 PM Workstation Name: [id number]
== END 2019-04-26 13:38 | disposition home or self-care (01) ==
LOC: ED 10:45
DX: K31.84 Gastroparesis (principal); J06.9 Acute upper respiratory infection, unspecified; R10.84 Generalized abdominal pain; I10 Essential (primary) hypertension; E11.43 Type 2 diabetes mellitus with diabetic autonomic (poly)neuropathy; M19.90 Unspecified osteoarthritis, unspecified site; G43.909 Migraine, unspecified, not intractable, without status migrainosus; F32.9 Major depressive disorder, single episode, unspecified; F41.9 Anxiety disorder, unspecified; F31.9 Bipolar disorder, unspecified; J45.909 Unspecified asthma, uncomplicated; M32.9 Systemic lupus erythematosus, unspecified; E78.00 Pure hypercholesterolemia, unspecified; N80.9 Endometriosis, unspecified; F41.0 Panic disorder [episodic paroxysmal anxiety]; Z86.73 Personal history of transient ischemic attack (TIA), and cerebral infarction without residual deficits; Z87.442 Personal history of urinary calculi; Z91.040 Latex allergy status; Z98.890 Other specified postprocedural states; Z79.899 Other long term (current) drug therapy; Z88.4 Allergy status to anesthetic agent; Z88.8 Allergy status to other drugs, medicaments and biological substances
CPT/HCPCS: 36415; 74022; 80053; 81001; 82962; 83690; 84703; 85025

== ENCOUNTER 2019-04-29 01:07 | Observation (INO) | payer MEDICARE ==
--- NOTE | 2019-04-29 02:14 | Consultation ---
History of Present Illness History of present illness: [facility] Consult Services Impression: Patient with left-sided hemibody pain from neck down and mild sensory loss in the left face/arm/leg. Pain increased with movement of limbs. Pain atypical for acute stroke - low suspicion. Rule out right hemispheric lacunar infarct of the deep brain structures (particularly thalamus) with MRI. Consider somatization/conversion if studies normal. Not a tpa candidate due to: out of window Not an MARYANN candidate due to: presentation not suggestive of LVO Differential Diagnosis: 1. Cardioembolic stroke 2. Small vessel disease/lacune 3. Thromboembolic, [id number] mechanism 4. Hypercoagulable state-related infarct 5. Transient ischemic attack 6. Thrombotic mechanism, large artery disease 7. Anxiety/somatization/conversion Comments: Door time: 0107 [facility] contacted: [phone] [facility] at bedside: 0154 NIHSS assessment time: 0201 (pt in CT on log in) Recommendations: MRI brain wo ASA Permissive HTN Statin TTE Vascular imaging pending MRI results Inpatient neurology consult Discussed with ED MD CC: stroke alert History of Present Illness Patient is a44 year old woman with a history of obesity, HTN, HLD, DM, bipolar, fibromyalgia presenting with left-sided pain. Last normal 2030 prior to bed. She woke around 0030 feeling sharp stabbing pain in the left side of her body from the neck down. She feels the left face/arm/leg are tingly. Arm and leg are painful to move. No weakness, vision changes, speech/language changes, vertigo, ROBLES, CP. Diagnostic: CT head wo - nothing acute Exam: NIHSS score: 1 Mild left f/a/l sensory loss Medical Decision Making: - Extensive number of diagnosis or management options are considered above. - Extensive amount of complex data reviewed. - High risk of complication and/or morbidity or mortality are associated with differential diagnostic considerations above. - There may be Uncertain outcome and increased probability of prolonged functional impairment or high probability of severe prolonged functional impairment associated with some of these differential diagnosis. Medical Data Reviewed: 1.Data reviewed include clinical labs, radiology, Medical Tests; 2.Tests results discussed w/performing or interpreting physician; 3.Obtaining/reviewing old medical records; 4.Obtaining case history from another source; 5.Independent review of image, tracing or specimen. Patient was informed the Neurology Consult would happen via TeleHealth consult by way of interactive audio and video telecommunications and consented to receiving care in this manner. Medications and Allergies Allergies Allergy/AdvReac Type Severity Reaction Status Date / Time aspirin Allergy Unknown Verified 04/16/19 11:58 butorphanol tartrate Allergy Seizure Verified 01/20/18 07:51 [From Stadol] latex Allergy Hives Verified 01/20/18 07:51 NSAIDS (Non-Steroidal Allergy Unknown Verified 04/16/19 11:58 Anti-Inflamma Home Medications Medication Instructions Recorded Confirmed Last Taken Type Levothyroxine [Synthroid] 150 mcg PO BID 04/07/19 04/16/19 04/16/19 History Linaclotide [Linzess] 290 mcg PO DAILY 04/07/19 04/16/19 04/16/19 History Liothyronine Sodium [Cytomel] 5 mcg PO DAILY 04/07/19 04/16/19 04/16/19 History Lurasidone HCl [Latuda] 120 mg PO QDAY 04/07/19 04/16/19 04/16/19 History Meclizine [Antivert] 25 mg PO TID PRN 04/07/19 04/16/19 04/16/19 History Metoprolol [Lopressor TAB] 50 mg PO DAILY 04/07/19 04/16/19 04/16/19 History Topiramate [Qudexy Xr] 1 tab PO DAILY 04/07/19 04/16/19 04/16/19 History clonazePAM [Klonopin] 1 mg PO DAILY 04/07/19 04/16/19 04/16/19 History Fluticasone/Salmeterol [Advair 1 puff IH BID 04/16/19 04/16/19 04/16/19 History Diskus 250-50 mcg] Levothyroxine [Synthroid] 300 mcg PO QDAY 04/16/19 04/16/19 04/16/19 History Linaclotide [Linzess] 290 mcg PO QDAY 04/16/19 04/16/19 04/16/19 History Losartan [Cozaar] 100 mg PO QDAY 04/16/19 04/16/19 04/16/19 History Lurasidone HCl [Latuda] 120 mg PO QDAY 04/16/19 04/16/19 04/16/19 History Meclizine [Antivert] 25 mg PO TID PRN 04/16/19 04/16/19 04/16/19 History Metoprolol Xl [Metoprolol 50 mg PO QDAY 04/16/19 04/16/19 04/16/19 History SUCCINATE ER TAB] Topiramate [Topamax] 200 mg PO QDAY 04/16/19 04/16/19 04/16/19 History Trazodone HCl 150 mg PO QDAY 04/16/19 04/16/19 04/16/19 History diphenhydrAMINE [Benadryl CAP] 50 mg PO QDAY 04/16/19 04/16/19 04/16/19 History hydroCHLOROthiazide [HCTZ] 25 mg PO QDAY 04/16/19 04/16/19 04/16/19 History Dicyclomine [Bentyl] 10 mg PO QID PRN #20 capsule 04/26/19 Unknown Rx - Level of Consciousness 1a. Level of Consciousness: alert/keenly responsive - LOC Questions 1b. LOC Questions: answers both correctly - LOC Command 1c. LOC Commands: performs tasks correctly - Best Gaze 2. Best Gaze: normal - Visual 3. Visual: no visual loss - Facial Palsy 4. Facial Palsy: normal symmetrical movement - Motor Arm 5a. Motor Arm Left: no drift 5b. Motor Arm Right: no drift - Motor Leg 6a. Motor Leg Left: no drift 6b. Motor Leg Right: no drift - Limb Ataxia 7. Limb Ataxia: absent - Sensory 8. Sensory: mild/moderate sensory loss - Best Language 9. Best Language: no aphasia - Dysarthria 10. Dysarthria: normal - Extinction and Inattention 11. Extinction/Inattention: no abnormality - Scoring Total Score: 1 Stroke Severity: Minor Stroke
[2019-04-29 02:27] LABS: Hematocrit 31.8 % (30.3-42.9); Hemoglobin 10.3 gm/dl (10.1-14.3); Mean Corpuscular HGB Conc 33 % (30-34); Mean Corpuscular Volume 90 fl (79-97); Platelet Count 438 K/mm3 (140-440); Red Blood Count 3.55 M/mm3 (3.65-5.03); Red Cell Distribution Width 14.9 % (13.2-15.2)
--- NOTE | 2019-04-29 02:33 | Cat Scan Report ---
Head CT without intravenous contrast INDICATION: Left-sided weakness COMPARISON: 04/16/2019 FINDINGS: The ventricles are normal in size and position. No hemorrhage or extra-axial fluid collecti on. No edema or mass effect. No focal infarct seen. Portions of the sinuses visualized are clear. No skull fracture identified. IMPRESSION: Negative head CT Automated exposure control was utilized to diminish radiation dose COMMUNICATION: Time of Communication: 04/29/2019 0120 hours Licensed Practitioner Receiving Report: Emergency room physician [facility] Signer Name: Brennan Davis MD Signed: 04/29/2019 2:29 AM Workstation Name: [id number]
[2019-04-29 02:40] LABS: INR 0.94 (0.87-1.13)
[2019-04-29 02:41] LABS: BUN/Creatinine Ratio 7; Blood Urea Nitrogen 11 mg/dL (7-17); Calcium 9.1 mg/dL (8.4-10.2); Hemolysis Index 1; Partial Thromboplastin Time 30.5 Sec. (24.2-36.6)
[2019-04-29 02:47] LABS: Thrombin Time 16.4 Sec. (15.1-19.6)
[2019-04-29] MEDS ORDERED: K-DUR PO ONE (02:53)
[2019-04-29 03:12] LABS: Total Cells Counted 100
[2019-04-29 03:13] LABS: RBC Morphology Normal
--- NOTE | 2019-04-29 03:18 | Emergency Department Report ---
HPI - General Chief Complaint: Neuro Symptoms/Deficit Time Seen by Provider: 04/29/19 02:20 - HPI HPI: Room 23 The patient is a 44-year-old female presenting with a chief complaint of facial droop. The patient states her last known well time was this evening at 20:30. The patient states this evening at 00:20 she looked in the mirror and noticed left side of her face was drooping more than normal. Patient states she also developed pain along the entire left side of her body. Patient says she contacted her son who was brought to the emergency department. The patient states this evening she also developed left-sided chest pain described as sharp in nature associated with shortness of breath. Patient denies nausea or vomiting. Location: [See above] Duration: [See above] Quality: [See above] Severity: [See above] Modifying factors: [see above] Context: [see above] Mode of transportation: [not driving] ED Past Medical Hx - Past Medical History Previous Medical History?: Yes Hx Hypertension: Yes Hx CVA: Yes (TIA) Hx Diabetes: Yes Hx Renal Disease: Yes (stage 3) Hx Arthritis: Yes (knees and back) Hx Headaches / Migraines: Yes Hx Seizures: Yes Hx Kidney Stones: Yes Hx Psychiatric Treatment: Yes (Bipolar, Panic Attacks, Anxiety, MDD) Hx Asthma: Yes Additional medical history: lupus, Gastroparesis, Neuropathy,. high cholesterol, Endometriosis,. bipolar, Fibromylagia, hypothyroidism. anxiety PANIC ATTACK, carpal tunnel syndrome - Surgical History Past Surgical History?: Yes Additional Surgical History: "rectal repair" after vaginal delivery. lump removed from right arm and right breast - Family History Family history: no significant - Social History Smoking Status: Never Smoker Substance Use Type: None (denies illicit drug use) - Medications Home Medications: Home Medications Medication Instructions Recorded Confirmed Last Taken Type Levothyroxine [Synthroid] 150 mcg PO BID 04/07/19 04/16/19 04/16/19 History Linaclotide [Linzess] 290 mcg PO DAILY 04/07/19 04/16/19 04/16/19 History Liothyronine Sodium [Cytomel] 5 mcg PO DAILY 04/07/19 04/16/19 04/16/19 History Lurasidone HCl [Latuda] 120 mg PO QDAY 04/07/19 04/16/19 04/16/19 History Meclizine [Antivert] 25 mg PO TID PRN 04/07/19 04/16/19 04/16/19 History Metoprolol [Lopressor TAB] 50 mg PO DAILY 04/07/19 04/16/19 04/16/19 History Topiramate [Qudexy Xr] 1 tab PO DAILY 04/07/19 04/16/19 04/16/19 History clonazePAM [Klonopin] 1 mg PO DAILY 04/07/19 04/16/19 04/16/19 History Fluticasone/Salmeterol [Advair 1 puff IH BID 04/16/19 04/16/19 04/16/19 History Diskus 250-50 mcg] Levothyroxine [Synthroid] 300 mcg PO QDAY 04/16/19 04/16/19 04/16/19 History Linaclotide [Linzess] 290 mcg PO QDAY 04/16/19 04/16/19 04/16/19 History Losartan [Cozaar] 100 mg PO QDAY 04/16/19 04/16/19 04/16/19 History Lurasidone HCl [Latuda] 120 mg PO QDAY 04/16/19 04/16/19 04/16/19 History Meclizine [Antivert] 25 mg PO TID PRN 04/16/19 04/16/19 04/16/19 History Metoprolol Xl [Metoprolol 50 mg PO QDAY 04/16/19 04/16/19 04/16/19 History SUCCINATE ER TAB] Topiramate [Topamax] 200 mg PO QDAY 04/16/19 04/16/19 04/16/19 History Trazodone HCl 150 mg PO QDAY 04/16/19 04/16/19 04/16/19 History diphenhydrAMINE [Benadryl CAP] 50 mg PO QDAY 04/16/19 04/16/19 04/16/19 History hydroCHLOROthiazide [HCTZ] 25 mg PO QDAY 04/16/19 04/16/19 04/16/19 History Dicyclomine [Bentyl] 10 mg PO QID PRN #20 capsule 04/26/19 Unknown Rx ED Review of Systems ROS: Stated complaint: L SIDE BODY PAIN Other details as noted in HPI Constitutional: no symptoms reported Eyes: denies: eye pain ENT: denies: throat pain Respiratory: shortness of breath Cardiovascular: chest pain Endocrine: no symptoms reported Gastrointestinal: denies: nausea, vomiting Genitourinary: denies: dysuria Musculoskeletal: denies: back pain Neurological: weakness. denies: headache Physical Exam - Physical Exam Vital Signs: Vital Signs 04/29/19 04/29/19 04/29/19 01:32 02:06 02:08 Temperature 98.0 F Pulse Rate 85 86 Respiratory 16 10 L 16 Rate Blood Pressure 112/76 O2 Sat by Pulse 97 99 Oximetry Physical Exam: GENERAL: The patient is well-developed well-nourished female lying on stretcher not appearing to be in acute distress. [] HEENT: Normocephalic. Atraumatic. Extraocular motions are intact. Patient has moist mucous membranes. NECK: Supple. Trachea midline CHEST/LUNGS: Clear to auscultation. There is no respiratory distress noted. HEART/CARDIOVASCULAR: Regular. There is no tachycardia. There is no gallop rub or murmur. ABDOMEN: Abdomen is soft, nontender. Patient has normal bowel sounds. There is no abdominal distention. SKIN: There is no rash. There is no edema. There is no diaphoresis. NEURO: The patient is awake, alert, and oriented. The patient is cooperative. Cranial nerves II through XII grossly intact. The patient has normal speech MUSCULOSKELETAL: There is no evidence of acute injury. ED Course Vital Signs 04/29/19 04/29/19 04/29/19 01:32 02:06 02:08 Temperature 98.0 F Pulse Rate 85 86 Respiratory 16 10 L 16 Rate Blood Pressure 112/76 O2 Sat by Pulse 97 99 Oximetry ED Medical Decision Making - Lab Data Result diagrams: 04/29/19 02:15 04/29/19 02:15 Laboratory Tests 04/29/19 04/29/19 04/29/19 02:15 02:15 02:15 WBC 9.0 RBC 3.55 L Hgb 10.3 Hct 31.8 MCV 90 MCH 29 MCHC 33 RDW 14.9 Plt Count 438 Lymph # Drying Room Operator Add Manual Diff Complete Total Counted 100 Seg Neuts % (Manual) 39.0 L Band Neutrophils % 0 Lymphocytes % (Manual) 51.0 H Reactive Lymphs % (Man) 0 Monocytes % (Manual) 7.0 Eosinophils % (Manual) 2.0 Basophils % (Manual) 1.0 Metamyelocytes % 0 Myelocytes % 0 Promyelocytes % 0 Blast Cells % 0 Nucleated RBC % Not Reportable Seg Neutrophils # Man 3.5 Band Neutrophils # 0.0 Lymphocytes # (Manual) 4.6 Abs React Lymphs (Man) 0.0 Monocytes # (Manual) 0.6 Eosinophils # (Manual) 0.2 Basophils # (Manual) 0.1 Metamyelocytes # 0.0 Myelocytes # 0.0 Promyelocytes # 0.0 Blast Cells # 0.0 WBC Morphology Not Reportable Hypersegmented Neuts Not Reportable Hyposegmented Neuts Not Reportable Hypogranular Neuts Not Reportable Smudge Cells Not Reportable Toxic Granulation Not Reportable Toxic Vacuolation Not Reportable Dohle Bodies Not Reportable Pelger-Huet Anomaly Not Reportable Nay Rods Not Reportable Platelet Estimate Not Reportable Clumped Platelets Not Reportable Plt Clumps, EDTA Not Reportable Large Platelets Not Reportable Giant Platelets Not Reportable Platelet Satelliting Not Reportable Plt Morphology Comment Not Reportable RBC Morphology Normal Dimorphic RBCs Not Reportable Polychromasia Not Reportable Hypochromasia Not Reportable Poikilocytosis Not Reportable Anisocytosis Not Reportable Microcytosis Not Reportable Macrocytosis Not Reportable Spherocytes Not Reportable Pappenheimer Bodies Not Reportable Sickle Cells Not Reportable Target Cells Not Reportable Tear Drop Cells Not Reportable Ovalocytes Not Reportable Helmet Cells Not Reportable Villatoro-Cudahy Bodies Not Reportable Brayton Rings Not Reportable Malone Cells Not Reportable Bite Cells Not Reportable Crenated Cell Not Reportable Elliptocytes Not Reportable Acanthocytes (Spur) Not Reportable Rouleaux Not Reportable Hemoglobin C Crystals Not Reportable Schistocytes Not Reportable Malaria parasites Not Reportable Yash Bodies Not Reportable Hem Pathologist Commnt No PT 12.3 INR 0.94 APTT 30.5 Thrombin Time 16.4 Sodium 142 Potassium 3.3 L Chloride 103.7 Carbon Dioxide 26 Anion Gap 16 BUN 11 Creatinine 1.6 H Estimated GFR 43 BUN/Creatinine Ratio 7 Glucose 125 H Calcium 9.1 Troponin T < 0.010 - EKG Data -: EKG Interpreted by [place] EKG shows normal: sinus rhythm Rate: normal - EKG Data When compared to previous EKG there are: no significant change Interpretation: unchanged when compared t (04/16/2019) - Radiology Data Radiology results: report reviewed (CT head), image reviewed (CT head, chest x- ray) interpreted by me: Chest x-ray-no focal infiltrates, no pneumothorax [facility] [address] [place] [address] Cat Scan Report Signed Patient: BERT MISTRY MR#: [id number] : 1975 Acct:[id number] Age/Sex: 44 / F ADM Date: 04/29/19 Loc: ED Attending Dr: Ordering Physician: MING VALDERRAMA MD Date of Service: 04/29/19 Procedure(s): CT head/brain wo con Accession Number(s): [id number] cc: MING VALDERRAMA MD Head CT without intravenous contrast INDICATION: Left-sided weakness COMPARISON: 04/16/2019 FINDINGS: The ventricles are normal in size and position. No hemorrhage or extra-axial fluid collection. No edema or mass effect. No focal infarct seen. Portions of the sinuses visualized are clear. No skull fracture identified. IMPRESSION: Negative head CT Automated exposure control was utilized to diminish radiation dose COMMUNICATION: Time of Communication: 04/29/2019 0120 hours Licensed Practitioner Receiving Report: Emergency room physician [facility] Signer Name: Brennan Davis MD Signed: 04/29/2019 2:29 AM Workstation Name: [id number] Transcribed By: Dictated By: Brennan Davis MD Electronically Authenticated By: Brennan Davis MD Signed Date/Time: 04/29/19228 DD/ 2 TD/TT: - Differential Diagnosis ACS, pericarditis, TIA, conversion disorder Critical care attestation.: If time is entered above; I have spent that time in minutes in the direct care of this critically ill patient, excluding procedure time. ED Disposition Clinical Impression: Chest pain Qualifiers: Chest pain type: other chest pain Qualified Code(s): R07.89 - Other chest pain Disposition: OP ADMIT IP TO THIS HOSP Is pt being admited?: Yes Does the pt Need Aspirin: No Condition: Fair Instructions: Chest Pain (ED) Referrals: PRIMARY CARE, [Primary Care Provider] - 3-5 Days Time of Disposition: 03:59 (hospitalist paged (Dr. Michelle Flanagan))
[2019-04-29] MEDS ORDERED: ZOFRAN IV ONE (03:28)
[2019-04-29] MEDS ORDERED: SUBLIMAZE IV ONE (03:28)
[2019-04-29] MEDS ORDERED: PLAVIX PO ONE (03:29)
--- NOTE | 2019-04-29 04:13 | XRay Report ---
CHEST 1 VIEW INDICATION / CLINICAL INFORMATION: chest pain. COMPARISON: 04/16/2019 FINDINGS: SUPPORT DEVICES: None. HEART / MEDIASTINUM: No significant abnormality. LUNGS / PLEURA: No significant pulmonary or pleural abnormality. No pneumothorax. ADDITIONAL FINDINGS: No significant additional findings. IMPRESSION: 1. No acute findings. Signer Name: Brennan Davis MD Signed: 04/29/2019 4:09 AM Workstation Name: [id number]
[2019-04-29] MEDS ORDERED: SODIUM CHLORIDE FLUSH SYRINGE 10 ML IV PRN (04:33)
[2019-04-29] MEDS ORDERED: ZOFRAN IV PRN (04:33)
[2019-04-29] MEDS ORDERED: TYLENOL PO PRN (04:33)
--- NOTE | 2019-04-29 04:33 | History and Physical Report ---
History of Present Illness Date of examination: 04/29/19 History of present illness: 44-year-old woman with history of hypertension, diabetes, hyperlidemia, hypothyroidism, bipolar, fibromyalgia, seizure, migraine, TIA, JOE comes to the emergency room with complaints of chest pain, described as sharp, constant, intensity, 5/10, no radiation, cannot identify exacerbating factors. Admits to nausea, denies shortness of breath , no vomiting, palpitation. She had a stress test last year which was negative. Also complain of a headache, left side numbness and she had a facial droop. Facial drrop resolved, other symptoms improving Review of systems Constitutional: no weight loss, chills, fever Ears, eyes, nose, mouth and throat: no nasal congestion, no nasal discharge, no sinus pressure, no vision change, no red eye. Neck: No neck pain or rigidity. Cardiovascular: no palpitations Respiratory: no cough, shortness of breath Gastrointestinal: no hematochezia, abdominal pain Genitourinary : no frequency , no hematuria Musculoskeletal: no joint swelling or muscle ache Integumentary: no rash, no pruritis Neurological: no parathesias, no focal weakness Endocrine: no cold or heat intolerance, no polyuria or polydipsia Hematologic/Lymphatic: no easy bruising, no easy bleeding, no gland swelling Allergic/Immunologic: no urticaria, no angioedema. PAST MEDICAL HISTORY:hypertension, diabetes, hyperlidemia, hypothyroidism, bipolar, fibromyalgia, seizure, migraine, TIA, JOE PAST SURGICAL HISTORY: Cyst removal from right breast, right shoulder, rectal surgery SOCIAL HISTORY: Denies alcohol, drugs, tobacco FAMILY HISTORY: Hypertension Medications and Allergies Allergies Allergy/AdvReac Type Severity Reaction Status Date / Time aspirin Allergy Unknown Verified 04/16/19 11:58 butorphanol tartrate Allergy Seizure Verified 01/20/18 07:51 [From Stadol] latex Allergy Hives Verified 01/20/18 07:51 NSAIDS (Non-Steroidal Allergy Unknown Verified 04/16/19 11:58 Anti-Inflamma Home Medications Medication Instructions Recorded Confirmed Last Taken Type Levothyroxine [Synthroid] 150 mcg PO BID 04/07/19 04/16/19 04/16/19 History Linaclotide [Linzess] 290 mcg PO DAILY 04/07/19 04/16/19 04/16/19 History Liothyronine Sodium [Cytomel] 5 mcg PO DAILY 04/07/19 04/16/19 04/16/19 History Lurasidone HCl [Latuda] 120 mg PO QDAY 04/07/19 04/16/19 04/16/19 History Meclizine [Antivert] 25 mg PO TID PRN 04/07/19 04/16/19 04/16/19 History Metoprolol [Lopressor TAB] 50 mg PO DAILY 04/07/19 04/16/19 04/16/19 History Topiramate [Qudexy Xr] 1 tab PO DAILY 04/07/19 04/16/19 04/16/19 History clonazePAM [Klonopin] 1 mg PO DAILY 04/07/19 04/16/19 04/16/19 History Fluticasone/Salmeterol [Advair 1 puff IH BID 04/16/19 04/16/19 04/16/19 History Diskus 250-50 mcg] Levothyroxine [Synthroid] 300 mcg PO QDAY 04/16/19 04/16/19 04/16/19 History Linaclotide [Linzess] 290 mcg PO QDAY 04/16/19 04/16/19 04/16/19 History Losartan [Cozaar] 100 mg PO QDAY 04/16/19 04/16/19 04/16/19 History Lurasidone HCl [Latuda] 120 mg PO QDAY 04/16/19 04/16/19 04/16/19 History Meclizine [Antivert] 25 mg PO TID PRN 04/16/19 04/16/19 04/16/19 History Metoprolol Xl [Metoprolol 50 mg PO QDAY 04/16/19 04/16/19 04/16/19 History SUCCINATE ER TAB] Topiramate [Topamax] 200 mg PO QDAY 04/16/19 04/16/19 04/16/19 History Trazodone HCl 150 mg PO QDAY 04/16/19 04/16/19 04/16/19 History diphenhydrAMINE [Benadryl CAP] 50 mg PO QDAY 04/16/19 04/16/19 04/16/19 History hydroCHLOROthiazide [HCTZ] 25 mg PO QDAY 04/16/19 04/16/19 04/16/19 History Dicyclomine [Bentyl] 10 mg PO QID PRN #20 capsule 04/26/19 Unknown Rx Exam - Physical Exam Narrative exam: General Apperance: The patient lying in bed, breathing comfortable HEENT: Normocephalic, atraumatic. Pupils equally round and reactive to light, EOMI, no sclericterus or JVD or thyromegaly or nodule. , no carotid bruit, mucous membranes moist, no exudate or erythema Heart: S1-S2, regular is rhythm Lungs: Clear to auscultation bilaterally, breathing comfortable Abdomen: Positive bowel sounds, soft, nontender, nondistended, no organomegaly Extremities: No edema cyanosis clubbing Skin: no rash, nodule, warm and dry Neuro: cranial nerves 2-12 intact, speech is fluent, motor/ intact, decrease sensation on the left - Constitutional Vitals: Temp Pulse Resp BP Pulse Ox 98.0 F 82 15 118/81 99 04/29/19 01:32 04/29/19 04:15 04/29/19 04:15 04/29/19 04:15 04/29/19 04:15 Results - Labs CBC & Chem 7: 04/29/19 02:15 04/29/19 02:15 Labs: Abnormal lab results 04/29/19 04/29/19 Range/Units 02:15 02:15 RBC 3.55 L (3.65-5.03) M/mm3 Seg Neuts % (Manual) 39.0 L (40.0-70.0) % Lymphocytes % (Manual) 51.0 H (13.4-35.0) % Potassium 3.3 L (3.6-5.0) mmol/L Creatinine 1.6 H (0.7-1.2) mg/dL Glucose 125 H (65-100) mg/dL - Imaging and Cardiology EKG: image reviewed Chest x-ray: report reviewed CT Scan - head: report reviewed Assessment and Plan Assessment Chest Pain Complex Migraine Mild renal insufficiency Hypertension Diabetes hyperlidemia Hypothyroidism Bipolar Fibromyalgia Seizure H/o TIA JOE Plan Admit to medicine Check cardiac enzymes,MR head consult cardiology, neurology Check fingersticks and start sliding scale potassium repleted Continue appropiate outpatiebnt medications DVT prophalaxis
[2019-04-29 05:32] LABS: Creatine Kinase MB 1.6 ng/mL (0.0-4.0)
[2019-04-29] MEDS ORDERED: NACL 0.9% 1000 ML 1,000 ML IV SCH (06:00)
[2019-04-29] MEDS: MORPHINE IV PRN ×3 (06:09→19:43)
--- NOTE | 2019-04-29 09:56 | Magnetic Resonance Report ---
MR brain wo con INDICATION / CLINICAL INFORMATION: 44 years Female; left side numb. TECHNIQUE: Multiplanar, multisequence MR images of the brain were obtained. COMPARISON: CT - 04/16/2019 FINDINGS: BRAIN / INTRACRANIAL CONTENTS: No acute hemorrhage, mass effect, midline shift, hydrocephalus, or acu te, large territorial infarct. No chronic infarct or atrophy. No significant white matter abnormality . CRANIOCERVICAL JUNCTION: No significant abnormality. VASCULAR FLOW-VOIDS: No significant abnormality. ORBITS: No significant abnormality of visualized orbits. SINUSES / MASTOIDS: Mild mucosal thickening seen in the ethmoids. ADDITIONAL FINDINGS: Mildly prominent soft tissues seen in the roof the nasopharynx, presumably relat ed to reactive adenoidal tissue. IMPRESSION: 1. No focal mass, hemorrhage, hydrocephalus, or acute ischemia. Signer Name: Toni Rizo MD, III Signed: 04/29/2019 9:52 AM Workstation Name: [id number]
[2019-04-29] MEDS ORDERED: ANTIVERT PO PRN (10:00)
[2019-04-29] MEDS ORDERED: NON-FORMULARY (Linaclotide [Linzess] 290 MCG) PO SCH (10:00)
[2019-04-29] MEDS ORDERED: NON-FORMULARY (Trazodone Hcl [Trazodone Hcl] 150 MG) PO SCH (10:00)
[2019-04-29] MEDS ORDERED: NON-FORMULARY (Lurasidone Hcl [Latuda] 120 MG) PO SCH (10:00)
[2019-04-29] MEDS ORDERED: TOPIRAMATE PO SCH (10:00)
[2019-04-29] MEDS ORDERED: NON-FORMULARY (Clonazepam [Klonopin] 1 MG) PO SCH (10:00)
[2019-04-29] MEDS ORDERED: BENTYL PO PRN (10:00)
[2019-04-29] MEDS ORDERED: LOVENOX SUB-Q SCH (10:00)
[2019-04-29] MEDS: SYNTHROID PO SCH (10:30)
[2019-04-29] MEDS: NACL 0.45% 1000 ML 1,000 ML IV SCH ×2 (10:37→18:40)
[2019-04-29] MEDS: LOVENOX SUB-Q SCH (10:37)
[2019-04-29] MEDS: TOPROL XL PO SCH (10:58)
[2019-04-29] MEDS: SODIUM CHLORIDE FLUSH SYRINGE 10 ML IV SCH ×2 (10:58→21:29)
[2019-04-29] MEDS: DESYREL PO SCH ×2 (11:30→16:32)
--- NOTE | 2019-04-29 11:46 | Consultation ---
History of Present Illness Consult date: 04/29/19 Consult reason: chest pain History of present illness: This is a 43-year old obese woman who presents with left sided pain and weakness. Patient denies fall or injury of her left side. In addition, while in the emergency department, patient complained of chest pain thus this cardiac consultation. Chest x-ray is negative. Cardiac enzymes are negative thus far. An ECG is normal sinus rhythm, nonspecific ST changes. Of note, patient was just di scharged from this hospital 3 weeks ago with musculoskeletal chest pain that was managed medically. There is no history of coronary artery disease. Patient has undergone extensive cardiac workup. A year ago she had stress thallium test that reports no ischemia, normal left ventricular systolic function, EF 50-55% by echocardiogram. In 2017, patient had a cardiac PET scan that reports no ischemia Medications and Allergies Allergies Allergy/AdvReac Type Severity Reaction Status Date / Time aspirin Allergy Unknown Verified 04/16/19 11:58 butorphanol tartrate Allergy Seizure Verified 01/20/18 07:51 [From Stadol] latex Allergy Hives Verified 01/20/18 07:51 NSAIDS (Non-Steroidal Allergy Unknown Verified 04/16/19 11:58 Anti-Inflamma Home Medications Medication Instructions Recorded Confirmed Last Taken Type Levothyroxine [Synthroid] 150 mcg PO BID 04/07/19 04/16/19 04/16/19 History Linaclotide [Linzess] 290 mcg PO DAILY 04/07/19 04/16/19 04/16/19 History Liothyronine Sodium [Cytomel] 5 mcg PO DAILY 04/07/19 04/16/19 04/16/19 History Lurasidone HCl [Latuda] 120 mg PO QDAY 04/07/19 04/16/19 04/16/19 History Meclizine [Antivert] 25 mg PO TID PRN 04/07/19 04/16/19 04/16/19 History Metoprolol [Lopressor TAB] 50 mg PO DAILY 04/07/19 04/16/19 04/16/19 History Topiramate [Qudexy Xr] 1 tab PO DAILY 04/07/19 04/16/19 04/16/19 History clonazePAM [Klonopin] 1 mg PO DAILY 04/07/19 04/16/19 04/16/19 History Fluticasone/Salmeterol [Advair 1 puff IH BID 04/16/19 04/16/19 04/16/19 History Diskus 250-50 mcg] Levothyroxine [Synthroid] 300 mcg PO QDAY 04/16/19 04/16/19 04/16/19 History Linaclotide [Linzess] 290 mcg PO QDAY 04/16/19 04/16/19 04/16/19 History Losartan [Cozaar] 100 mg PO QDAY 04/16/19 04/16/19 04/16/19 History Lurasidone HCl [Latuda] 120 mg PO QDAY 04/16/19 04/16/19 04/16/19 History Meclizine [Antivert] 25 mg PO TID PRN 04/16/19 04/16/19 04/16/19 History Metoprolol Xl [Metoprolol 50 mg PO QDAY 04/16/19 04/16/19 04/16/19 History SUCCINATE ER TAB] Topiramate [Topamax] 200 mg PO QDAY 04/16/19 04/16/19 04/16/19 History Trazodone HCl 150 mg PO QDAY 04/16/19 04/16/19 04/16/19 History diphenhydrAMINE [Benadryl CAP] 50 mg PO QDAY 04/16/19 04/16/19 04/16/19 History hydroCHLOROthiazide [HCTZ] 25 mg PO QDAY 04/16/19 04/16/19 04/16/19 History Dicyclomine [Bentyl] 10 mg PO QID PRN #20 capsule 04/26/19 Unknown Rx Active Meds: Active Medications Acetaminophen (Tylenol) 650 mg PO Q4H PRN PRN Reason: Pain MILD(1-3)/Fever >100.5/ROBLES Clonazepam (Klonopin) 1 mg PO DAILY [facility] Dicyclomine HCl (Bentyl) 10 mg PO QID PRN PRN Reason: abdominal cramping Enoxaparin Sodium (Lovenox) 40 mg SUB-Q QDAY@1000 [facility] Last Admin: 04/29/19 10:37 Dose: 40 mg Documented by: Sodium Chloride (Nacl 0.45% 1000 Ml) 1,000 mls @ 125 mls/hr IV DIRECT [facility] Last Admin: 04/29/19 10:37 Dose: 125 mls/hr Documented by: Levothyroxine Sodium (Synthroid) 300 mcg PO 0600 [facility] Meclizine HCl (Antivert) 25 mg PO TID PRN PRN Reason: Vertigo Metoprolol Succinate (Toprol Xl) 50 mg PO QDAY [facility] Last Admin: 04/29/19 10:58 Dose: 50 mg Documented by: Miscellaneous Medication (Linaclotide [Linzess]) 290 mcg PO DAILY [facility] Miscellaneous Medication (Lurasidone Hcl [Latuda]) 120 mg PO QDAY [facility] Miscellaneous Medication (Topiramate [Qudexy Xr]) 1 tab PO DAILY [facility] Morphine Sulfate (Morphine) 2 mg IV Q4H PRN PRN Reason: Pain, Moderate (4-6) Last Admin: 04/29/19 06:09 Dose: 2 mg Documented by: Ondansetron HCl (Zofran) 4 mg IV Q4H PRN PRN Reason: Nausea And Vomiting Sodium Chloride (Sodium Chloride Flush Syringe 10 Ml) 10 ml IV BID [facility] Last Admin: 04/29/19 10:58 Dose: 10 ml Documented by: Sodium Chloride (Sodium Chloride Flush Syringe 10 Ml) 10 ml IV PRN PRN PRN Reason: LINE FLUSH Trazodone HCl (Desyrel) 100 mg PO DAILY [facility] Trazodone HCl (Desyrel) 50 mg PO DAILY [facility] Physical Examination Vital Signs Temp Pulse Resp BP Pulse Ox 98.0 F 85 16 112/76 97 04/29/19 01:32 04/29/19 01:32 04/29/19 01:32 04/29/19 01:32 04/29/19 01:32 General appearance: no acute distress, obese HEENT: Positive: PERRL Neck: Positive: trachea midline Cardiac: Positive: Reg Rate and Rhythm Lungs: Positive: Decreased Breath Sounds Extremities: Absent: edema Results 04/29/19 02:15 04/29/19 02:15 Cardiac Enzymes 04/29/19 Range/Units 04:54 CK-MB (CK-2) 1.6 (0.0-4.0) ng/mL Coagulation 04/29/19 Range/Units 02:15 PT 12.3 (12.2-14.9) Sec. INR 0.94 (0.87-1.13) APTT 30.5 (24.2-36.6) Sec. CBC 04/29/19 Range/Units 02:15 WBC 9.0 (4.5-11.0) K/mm3 RBC 3.55 L (3.65-5.03) M/mm3 Hgb 10.3 (10.1-14.3) gm/dl Hct 31.8 (30.3-42.9) % Plt Count 438 (140-440) K/mm3 Lymph # Policy Cancellation Clerk Comprehensive Metabolic Panel 04/29/19 Range/Units 02:15 Sodium 142 (137-145) mmol/L Potassium 3.3 L (3.6-5.0) mmol/L Chloride 103.7 (98-107) mmol/L Carbon Dioxide 26 (22-30) mmol/L BUN 11 (7-17) mg/dL Creatinine 1.6 H (0.7-1.2) mg/dL Glucose 125 H (65-100) mg/dL Calcium 9.1 (8.4-10.2) mg/dL Assessment and Plan Left sided pain/weakness negative MRI Atypical chest pain normal MPI 02/2018 normal LVEF by echo 02/2018 no ischemia by cardiac PET scan 12/2016 Acute kidney disease Diabetes Bipolar disease Hypertension Sleep apnea on CPAP therapy Obesity Recommendations: Neurology evaluation and workup of left sided pain and weakness. Otherwise, conservative cardiac management.
--- NOTE | 2019-04-29 17:11 | Consultation ---
History of Present Illness Consult date: 04/29/19 Reason for Consult: Left sided pain Chief complaint: left sided pain and weakness History of present illness: Patient is a 44-year-old woman with a history of obesity, hypertension, hyperlipidemia, diabetes mellitus, anxiety, bipolar disorder, hypothyroidism, fibromyalgia, history of seizures, lupus, CK-MB 3, history of migraines. She presents with pain that started yesterday evening, and is described as being felt on the entire left side of her body and also on the left side of her head. Patient states that at the time of onset of pain, she began to experience chest pain and shortness of breath as well. She notes that she's had complex migraines in the past, and was previously given Botox for this, however she's not had Botox recently during due to insurance changes. She states that her headache is improved now, however she continues to experience pain in the left arm and left leg which she states that she has tenderness on the left upper and lower extremities. Past History Past Medical History: other (diabetes mellitus, obesity, hypertension, hyperlipidemia, anxiety, bipolar disorder, hypothyroidism, fibromyalgia, history of seizures, lupus, CK D3, history of migraines.) Social history: no significant social history Family history: no significant family history Medications and Allergies Allergies Allergy/AdvReac Type Severity Reaction Status Date / Time aspirin Allergy Unknown Verified 04/16/19 11:58 butorphanol tartrate Allergy Seizure Verified 01/20/18 07:51 [From Stadol] latex Allergy Hives Verified 01/20/18 07:51 NSAIDS (Non-Steroidal Allergy Unknown Verified 04/16/19 11:58 Anti-Inflamma Home Medications Medication Instructions Recorded Confirmed Last Taken Type Levothyroxine [Synthroid] 150 mcg PO BID 04/07/19 04/16/19 04/16/19 History Linaclotide [Linzess] 290 mcg PO DAILY 04/07/19 04/16/19 04/16/19 History Liothyronine Sodium [Cytomel] 5 mcg PO DAILY 04/07/19 04/16/19 04/16/19 History Lurasidone HCl [Latuda] 120 mg PO QDAY 04/07/19 04/16/19 04/16/19 History Meclizine [Antivert] 25 mg PO TID PRN 04/07/19 04/16/19 04/16/19 History Metoprolol [Lopressor TAB] 50 mg PO DAILY 04/07/19 04/16/19 04/16/19 History Topiramate [Qudexy Xr] 1 tab PO DAILY 04/07/19 04/16/19 04/16/19 History clonazePAM [Klonopin] 1 mg PO DAILY 04/07/19 04/16/19 04/16/19 History Fluticasone/Salmeterol [Advair 1 puff IH BID 04/16/19 04/16/19 04/16/19 History Diskus 250-50 mcg] Levothyroxine [Synthroid] 300 mcg PO QDAY 04/16/19 04/16/19 04/16/19 History Linaclotide [Linzess] 290 mcg PO QDAY 04/16/19 04/16/19 04/16/19 History Losartan [Cozaar] 100 mg PO QDAY 04/16/19 04/16/19 04/16/19 History Lurasidone HCl [Latuda] 120 mg PO QDAY 04/16/19 04/16/19 04/16/19 History Meclizine [Antivert] 25 mg PO TID PRN 04/16/19 04/16/19 04/16/19 History Metoprolol Xl [Metoprolol 50 mg PO QDAY 04/16/19 04/16/19 04/16/19 History SUCCINATE ER TAB] Topiramate [Topamax] 200 mg PO QDAY 04/16/19 04/16/19 04/16/19 History Trazodone HCl 150 mg PO QDAY 04/16/19 04/16/19 04/16/19 History diphenhydrAMINE [Benadryl CAP] 50 mg PO QDAY 04/16/19 04/16/19 04/16/19 History hydroCHLOROthiazide [HCTZ] 25 mg PO QDAY 04/16/19 04/16/19 04/16/19 History Dicyclomine [Bentyl] 10 mg PO QID PRN #20 capsule 04/26/19 Unknown Rx Active Meds: Active Medications Acetaminophen (Tylenol) 650 mg PO Q4H PRN PRN Reason: Pain MILD(1-3)/Fever >100.5/ROBLES Clonazepam (Klonopin) 1 mg PO DAILY [facility] Last Admin: 04/29/19 11:00 Dose: 1 mg Documented by: Dicyclomine HCl (Bentyl) 10 mg PO QID PRN PRN Reason: abdominal cramping Enoxaparin Sodium (Lovenox) 40 mg SUB-Q QDAY@1000 [facility] Last Admin: 04/29/19 10:37 Dose: 40 mg Documented by: Sodium Chloride (Nacl 0.45% 1000 Ml) 1,000 mls @ 125 mls/hr IV DIRECT [facility] Last Admin: 04/29/19 10:37 Dose: 125 mls/hr Documented by: Levothyroxine Sodium (Synthroid) 300 mcg PO 0600 [facility] Last Admin: 04/29/19 10:30 Dose: 300 mcg Documented by: Meclizine HCl (Antivert) 25 mg PO TID PRN PRN Reason: Vertigo Metoprolol Succinate (Toprol Xl) 50 mg PO QDAY [facility] Last Admin: 04/29/19 10:58 Dose: 50 mg Documented by: Miscellaneous Medication (Linaclotide [Linzess]) 290 mcg PO DAILY [facility] Miscellaneous Medication (Lurasidone Hcl [Latuda]) 120 mg PO QDAY [facility] Miscellaneous Medication (Topiramate [Qudexy Xr]) 1 tab PO DAILY [facility] Morphine Sulfate (Morphine) 2 mg IV Q4H PRN PRN Reason: Pain, Moderate (4-6) Last Admin: 04/29/19 13:06 Dose: 2 mg Documented by: Ondansetron HCl (Zofran) 4 mg IV Q4H PRN PRN Reason: Nausea And Vomiting Sodium Chloride (Sodium Chloride Flush Syringe 10 Ml) 10 ml IV BID [facility] Last Admin: 04/29/19 10:58 Dose: 10 ml Documented by: Sodium Chloride (Sodium Chloride Flush Syringe 10 Ml) 10 ml IV PRN PRN PRN Reason: LINE FLUSH Trazodone HCl (Desyrel) 100 mg PO DAILY [facility] Last Admin: 04/29/19 11:30 Dose: 100 mg Documented by: Trazodone HCl (Desyrel) 50 mg PO DAILY [facility] Last Admin: 04/29/19 16:32 Dose: 50 mg Documented by: Review of Systems All systems: negative Musculoskeletal: arm numbness/tingling, other (left UE/LE pain) Neurological: weakness, parathesias, headaches Physical Examination - Vital Signs Vital Signs: Vital Signs Temp Pulse Resp BP Pulse Ox 98.0 F 85 16 112/76 97 04/29/19 01:32 04/29/19 01:32 04/29/19 01:32 04/29/19 01:32 04/29/19 01:32 - Constitutional General appearance: uncomfortable - EENT EENT: Present: ATNC, PERRL, mucous membranes moist, hearing intact, vision intact - Respiratory Respiratory: Present: lungs clear, normal breath sounds - Cardiovascular Cardiovascular: Present: regular rate, normal S1, normal S2 Extremities: Present: no peripheral edema bilatateraly, no clubbing, cyanosis, other (Tenderness noted in proximal LUE and LLE) - Gastrointestinal Gastrointestinal: Present: normoactive bowel sounds, soft, non-tender - Integumentary Integumentary: Present: normal - Neurologic Cranial nerve examination: PERRL, EOMI, VFF, V1/V2/V3 grossly intact, face symmetric, intact shoulder shrug Speech examination: intact Motor examination - right side: 5/5: biceps, triceps, wrist flexion, wrist extension, patient service specialist, hip flexors, knee extensors, dorsiflexion, toe extension (EHL), plantarflexion Motor examination - left side: 4/5: biceps (LUE and LLE groups limited due to pain), triceps, wrist flexion, wrist extension, patient service specialist, hip flexors, knee extensors, dorsiflexion, toe extension (EHL), plantarflexion Detailed sensory examination: other (mild decrease on LLE/LUE) Reflexes: 2+: ankle, bicep, knee, tricep Cerebellar examination: other (HTS and FTN intact) - Psychiatric Psychiatric: Present: mood/affect appropriate Results - Laboratory Findings CBC and BMP: 04/29/19 02:15 04/29/19 02:15 Abnormal Lab Findings: Abnormal Labs 04/29/19 04/29/19 04/29/19 02:15 02:15 04:54 RBC 3.55 L Seg Neuts % (Manual) 39.0 L Lymphocytes % (Manual) 51.0 H Potassium 3.3 L Creatinine 1.6 H Glucose 125 H Total Creatine Kinase 365 H Assessment and Plan Patient is a 44-year-old woman with a history of obesity, hypertension, hyperlipidemia, diabetes mellitus, anxiety, bipolar disorder, hypothyroidism, fibromyalgia, history of seizures, lupus, CK-MB 3, history of migraines. She presents with headache as well as pain on the left arm and leg, which was associated with chest pain and shortness of breath. According the patient's clinical findings, it is not felt that her current symptoms are due to any evidence of an intracranial abnormality, as MRI was normal. It is likely that the patient's current pain is due to a local muscular process, that she has notable tenderness in the left upper and lower extremity. Patient also continues to experience chest pain. Of note, her headache has improved. It is not felt that her current symptoms are due to a complex migraine, as her pain is localized to the left upper and lower extremity on examination with tenderness in those areas. Plan: 1. Headache: improved since onset. Would not recommend any acute treatment as headache has improved, and pain is more localized to proximal upper and lower extremities. MRI brain did not reveal any acute intracranial abnormalities. 2. Chest pain with Left upper and lower extremity pain: Likely local muscular in origin, as patient has tenderness in these regions. Likely due in part to patien ts underlying fibromylagia. Recommend further workup per primary team to rule out any localized vascular processes within extremities. Discussed plan of care with patient. -Will sign off. Please call with any questions. Florencio Verma MD Neurology
[2019-04-30] MEDS: MORPHINE IV PRN ×5 (01:04→22:58)
[2019-04-30] MEDS: NACL 0.45% 1000 ML 1,000 ML IV SCH ×2 (05:50→22:54)
[2019-04-30] MEDS: SYNTHROID PO SCH (05:50)
[2019-04-30 07:48] LABS: Hematocrit 29.8 % (30.3-42.9); Mean Corpuscular HGB Conc 33 % (30-34); Mean Corpuscular Volume 89 fl (79-97); Platelet Count 402 K/mm3 (140-440); Red Blood Count 3.35 M/mm3 (3.65-5.03); Red Cell Distribution Width 14.8 % (13.2-15.2)
[2019-04-30 08:08] LABS: Calcium 8.6 mg/dL (8.4-10.2)
[2019-04-30] MEDS: DESYREL PO SCH ×2 (09:38)
[2019-04-30] MEDS: TOPROL XL PO SCH (09:38)
[2019-04-30] MEDS: LOVENOX SUB-Q SCH (09:38)
[2019-04-30] MEDS: SODIUM CHLORIDE FLUSH SYRINGE 10 ML IV SCH ×2 (09:39→23:18)
[2019-04-30 12:09] LABS: Basophils % (Manual) 0 % (0.0-1.8); Total Cells Counted 100
[2019-04-30 12:11] LABS: Platelet Estimate Consistent w Auto; RBC Morphology Normal
--- NOTE | 2019-04-30 13:36 | Vascular Lab Report ---
DUPLEX DOPPLER LOWER EXTREMITY ARTERIAL, BILATERAL INDICATION / CLINICAL INFORMATION: extremity pain. TECHNIQUE: Arterial duplex examination of both lower extremities performed using B-mode, color flow and spectral Doppler assessment. FINDINGS: RIGHT: Common Femoral Artery: PSV 94 cm/sec. Triphasic waveform. Proximal SFA: PSV 69 cm/sec. Triphasic waveform. Mid SFA: PSV 47 cm/sec. Triphasic waveform. Distal SFA: PSV 39 cm/sec. Triphasic waveform. Popliteal artery: PSV 52 cm/sec. Triphasic waveform. Posterior tibial artery: PSV 34 cm/sec. Triphasic waveform. Dorsalis Pedis Artery: PSV 37 cm/sec. Triphasic waveform. LEFT: Common Femoral Artery: PSV 67 cm/sec. Triphasic waveform. Proximal SFA: PSV 68 cm/sec. Triphasic waveform. Mid SFA: PSV 57 cm/sec. Triphasic waveform. Distal SFA: PSV 41 cm/sec. Triphasic waveform. Popliteal artery: PSV 41 cm/sec. Triphasic waveform. Posterior tibial artery: PSV 39 cm/sec. Triphasic waveform. Dorsalis Pedis Artery: PSV 31 cm/sec. Triphasic waveform. Right PILAR: Not performed. Left PILAR: Not performed. IMPRESSION: 1. No significant lower extremity peripheral artery disease. Ankle-Brachial Index (PILAR): - Calcified arteries > 1.4 - Normal = 0.9-1.4 - Mild PAD = 0.7-0.89 - Moderate PAD = 0.51-0.69 - Severe PAD < 0.5 Doppler Waveform: - Triphasic is normal. - Biphasic is abnormal if clear transition from triphasic signal along vascular tree. - Monophasic is abnormal. Signer Name: Omi Caceres MD Signed: 04/30/2019 1:31 PM Workstation Name: [email or web address]
[2019-05-01] MEDS: NACL 0.45% 1000 ML 1,000 ML IV SCH (05:57)
[2019-05-01] MEDS: SYNTHROID PO SCH (05:59)
[2019-05-01 09:40] VITALS: BP 118/78
[2019-05-01] MEDS: TOPROL XL PO SCH (10:07)
[2019-05-01] MEDS: MORPHINE IV PRN (10:08)
[2019-05-01] MEDS: DESYREL PO SCH ×2 (10:18)
[2019-05-01] MEDS: LOVENOX SUB-Q SCH (10:19)
[2019-05-01] MEDS: SODIUM CHLORIDE FLUSH SYRINGE 10 ML IV SCH (10:19)
--- NOTE | 2019-05-01 10:48 | Progress Note ---
Assessment and Plan Assessment and plan: Chest Pain Complex Migraine Mild renal insufficiency Hypertension Diabetes hyperlidemia Hypothyroidism Bipolar Fibromyalgia Seizure H/o TIA JOE Plan Admit to medicine Check cardiac enzymes,MR head consult cardiology, neurology Check fingersticks and start sliding scale potassium repleted Continue appropiate outpatiebnt medications DVT prophalaxis Hospitalist Physical - Constitutional Vitals: Temp Pulse Resp BP Pulse Ox 98.1 F 83 18 118/78 96 05/01/19 07:53 05/01/19 07:53 05/01/19 07:53 05/01/19 10:07 05/01/19 08:07 General appearance: Present: no acute distress, obese Results - Labs CBC & Chem 7: 04/30/19 06:56 04/30/19 06:56 Labs: Laboratory Last Values WBC 6.4 K/mm3 (4.5-11.0) 04/30/19 06:56 RBC 3.35 M/mm3 (3.65-5.03) L 04/30/19 06:56 Hgb 10.0 gm/dl (10.1-14.3) L 04/30/19 06:56 Hct 29.8 % (30.3-42.9) L 04/30/19 06:56 MCV 89 fl (79-97) 04/30/19 06:56 MCH 30 pg (28-32) 04/30/19 06:56 MCHC 33 % (30-34) 04/30/19 06:56 RDW 14.8 % (13.2-15.2) 04/30/19 06:56 Plt Count 402 K/mm3 (140-440) 04/30/19 06:56 Lymph % (Auto) Rn Post Partum 04/30/19 06:56 Lymph # Rn Post Partum 04/29/19 02:15 Add Manual Diff Complete 04/30/19 06:56 Total Counted 100 04/30/19 06:56 Seg Neutrophils % Rn Post Partum 04/30/19 06:56 Seg Neuts % (Manual) 37.0 % (40.0-70.0) L 04/30/19 06:56 0 % 04/30/19 06:56 59.0 % (13.4-35.0) H 04/30/19 06:56 Reactive Lymphs % (Man) 0 % 04/30/19 06:56 2.0 % (0.0-7.3) 04/30/19 06:56 2.0 % (0.0-4.3) 04/30/19 06:56 0 % (0.0-1.8) 04/30/19 06:56 0 % 04/30/19 06:56 0 % 04/30/19 06:56 0 % 04/30/19 06:56 0 % 04/30/19 06:56 Nucleated RBC % Not Reportable 04/30/19 06:56 Seg Neutrophils # Man 2.4 K/mm3 (1.8-7.7) 04/30/19 06:56 Band Neutrophils # 0.0 K/mm3 04/30/19 06:56 3.8 K/mm3 (1.2-5.4) 04/30/19 06:56 Abs React Lymphs (Man) 0.0 K/mm3 04/30/19 06:56 0.1 K/mm3 (0.0-0.8) 04/30/19 06:56 0.1 K/mm3 (0.0-0.4) 04/30/19 06:56 0.0 K/mm3 (0.0-0.1) 04/30/19 06:56 0.0 K/mm3 04/30/19 06:56 0.0 K/mm3 04/30/19 06:56 0.0 K/mm3 04/30/19 06:56 Blast Cells # 0.0 K/mm3 04/30/19 06:56 WBC Morphology Not Reportable 04/30/19 06:56 Hypersegmented Neuts Not Reportable 04/30/19 06:56 Hyposegmented Neuts Not Reportable 04/30/19 06:56 Hypogranular Neuts Not Reportable 04/30/19 06:56 Not Reportable 04/30/19 06:56 Not Reportable 04/30/19 06:56 Not Reportable 04/30/19 06:56 Not Reportable 04/30/19 06:56 Not Reportable 04/30/19 06:56 Not Reportable 04/30/19 06:56 Consistent w auto 04/30/19 06:56 Not Reportable 04/30/19 06:56 Plt Clumps, EDTA Not Reportable 04/30/19 06:56 Not Reportable 04/30/19 06:56 Not Reportable 04/30/19 06:56 Not Reportable 04/30/19 06:56 Plt Morphology Comment Not Reportable 04/30/19 06:56 RBC Morphology Normal 04/30/19 06:56 Dimorphic RBCs Not Reportable 04/30/19 06:56 Not Reportable 04/30/19 06:56 Not Reportable 04/30/19 06:56 Not Reportable 04/30/19 06:56 Not Reportable 04/30/19 06:56 Not Reportable 04/30/19 06:56 Not Reportable 04/30/19 06:56 Not Reportable 04/30/19 06:56 Not Reportable 04/30/19 06:56 Not Reportable 04/30/19 06:56 Not Reportable 04/30/19 06:56 Not Reportable 04/30/19 06:56 Not Reportable 04/30/19 06:56 Not Reportable 04/30/19 06:56 Not Reportable 04/30/19 06:56 Not Reportable 04/30/19 06:56 Not Reportable 04/30/19 06:56 Not Reportable 04/30/19 06:56 Not Reportable 04/30/19 06:56 Not Reportable 04/30/19 06:56 Acanthocytes (Spur) Not Reportable 04/30/19 06:56 Rouleaux Not Reportable 04/30/19 06:56 Not Reportable 04/30/19 06:56 Not Reportable 04/30/19 06:56 Not Reportable 04/30/19 06:56 Not Reportable 04/30/19 06:56 Hem Pathologist Commnt No 04/30/19 06:56 PT 12.3 Sec. (12.2-14.9) 04/29/19 02:15 INR 0.94 (0.87-1.13) 04/29/19 02:15 APTT 30.5 Sec. (24.2-36.6) 04/29/19 02:15 16.4 Sec. (15.1-19.6) 04/29/19 02:15 Sodium 139 mmol/L (137-145) 04/30/19 06:56 Potassium 3.3 mmol/L (3.6-5.0) L 04/30/19 06:56 Chloride 103.6 mmol/L (98-107) 04/30/19 06:56 Carbon Dioxide 23 mmol/L (22-30) 04/30/19 06:56 16 mmol/L 04/30/19 06:56 BUN 9 mg/dL (7-17) 04/30/19 06:56 1.3 mg/dL (0.7-1.2) H 04/30/19 06:56 Estimated GFR 54 ml/min 04/30/19 06:56 7 % 04/30/19 06:56 Glucose 137 mg/dL (65-100) H 04/30/19 06:56 Calcium 8.6 mg/dL (8.4-10.2) 04/30/19 06:56 Magnesium 2.00 mg/dL (1.7-2.3) 04/29/19 04:54 365 units/L (30-135) H 04/29/19 04:54 CK-MB (CK-2) 1.6 ng/mL (0.0-4.0) 04/29/19 04:54 CK-MB (CK-2) Rel Index 0.4 (0-4) 04/29/19 04:54 < 0.010 ng/mL (0.00-0.029) 04/29/19 04:54 Active Medications - Current Medications Current Medications: Generic Name Dose Route Start Last Admin Trade Name Freq PRN Reason Stop Dose Admin Acetaminophen 650 mg 04/29/19 04:33 Tylenol PO Q4H PRN Pain MILD(1-3)/Fever >100.5/ROBLES Clonazepam 1 mg 04/29/19 10:00 05/01/19 10:08 Klonopin PO 1 mg DAILY [facility] Administration Dicyclomine HCl 10 mg 04/29/19 10:00 Bentyl PO QID PRN abdominal cramping Enoxaparin Sodium 40 mg 04/29/19 10:00 05/01/19 10:19 Lovenox SUB-Q 40 mg QDAY@1000 [facility] Administration Sodium Chloride 1,000 mls @ 125 mls/hr 04/29/19 09:30 05/01/19 05:57 Nacl 0.45% 1000 Ml IV 125 mls/hr DIRECT [facility] Administration Levothyroxine Sodium 300 mcg 04/29/19 10:00 05/01/19 05:59 Synthroid PO 300 mcg 0600 [facility] Administration Meclizine HCl 25 mg 04/29/19 10:00 Antivert PO TID PRN Vertigo Metoprolol Succinate 50 mg 04/29/19 10:00 05/01/19 10:07 Toprol Xl PO 50 mg QDAY [facility] Administration Miscellaneous Medication 290 mcg 04/29/19 10:00 Linaclotide [Linzess] PO DAILY [facility] Miscellaneous Medication 120 mg 04/29/19 10:00 Lurasidone Hcl [Latuda] PO QDAY [facility] Miscellaneous Medication 1 tab 04/29/19 10:00 Topiramate [Qudexy Xr] PO DAILY [facility] Morphine Sulfate 2 mg 04/29/19 04:33 05/01/19 10:08 Morphine IV 2 mg Q4H PRN Administration Pain, Moderate (4-6) Ondansetron HCl 4 mg 04/29/19 04:33 Zofran IV Q4H PRN Nausea And Vomiting Sodium Chloride 10 ml 04/29/19 10:00 05/01/19 10:19 Sodium Chloride Flush Syringe 10 Ml IV 10 ml BID [facility] Administration Sodium Chloride 10 ml 04/29/19 04:33 Sodium Chloride Flush Syringe 10 Ml IV PRN PRN LINE FLUSH Trazodone HCl 100 mg 04/29/19 11:00 05/01/19 10:18 Desyrel PO Not Given DAILY [facility] Trazodone HCl 50 mg 04/29/19 11:00 05/01/19 10:18 Desyrel PO Not Given DAILY [facility]
--- NOTE | 2019-05-01 10:52 | Discharge Summary ---
Providers - Providers Date of Admission: 04/29/19 04:33 Attending physician: ARCHIE GUERRA MD 04/29/19 04:33 Consult to Physician [CONS] Routine Comment: Consulting Provider: MARLEEN FULLER Physician Instructions: Reason For Exam: complex migraine Primary care physician: [employer] Hospitalization Condition: Fair Hospital course: Chest Pain Complex Migraine Mild renal insufficiency Hypertension Diabetes hyperlidemia Hypothyroidism Bipolar Fibromyalgia Seizure H/o TIA JOE Plan Admit to medicine Check cardiac enzymes,MR head consult cardiology, neurology Check fingersticks and start sliding scale potassium repleted Continue appropiate outpatiebnt medications DVT prophalaxis Disposition: DC-01 TO HOME OR SELFCARE Time spent for discharge: 33 mins Core Measure Documentation - Palliative Care Palliative Care/ Comfort Measures: Not Applicable - Core Measures Any of the following diagnoses?: none Exam - Constitutional Vitals: Temp Pulse Resp BP Pulse Ox 98.1 F 83 18 118/78 96 05/01/19 07:53 05/01/19 07:53 05/01/19 07:53 05/01/19 10:07 05/01/19 08:07 General appearance: Present: no acute distress, well-nourished - EENT Eyes: Present: PERRL ENT: hearing intact, clear oral mucosa - Neck Neck: Present: supple, normal ROM - Respiratory Respiratory effort: normal Respiratory: bilateral: CTA - Cardiovascular Heart Sounds: Present: S1 & S2. Absent: rub, click - Extremities Extremities: pulses symmetrical, No edema Peripheral Pulses: within normal limits - Abdominal General gastrointestinal: Present: soft, non-tender, non-distended, normal bowel sounds Female genitourinary: Present: normal - Integumentary Integumentary: Present: clear, warm, dry - Musculoskeletal Musculoskeletal: gait normal, strength equal bilaterally - Psychiatric Psychiatric: appropriate mood/affect, intact judgment & insight - Neurologic Neurologic: CNII-XII intact, moves all extremities Plan Follow up with: PRIMARY CARE, [Primary Care Provider] - 3-5 Days Prescriptions: clonazePAM [KlonoPIN] 1 mg PO DAILY #10 tablet
[2019-05-01] MEDS ORDERED: DESYREL PO SCH ×2 (22:00)
== END 2019-05-01 17:45 | disposition home or self-care (01) ==
LOC: ED 01:07 → SUATTDRO 01:07 → 4A 04:33 → INTOOBSV 04:33
PROVIDERS: ADMIT Internal Medicine; ATTEND Internal Medicine
DX: R07.89 Other chest pain (principal); G43.909 Migraine, unspecified, not intractable, without status migrainosus; G43.109 Migraine with aura, not intractable, without status migrainosus; N28.9 Disorder of kidney and ureter, unspecified; I10 Essential (primary) hypertension; E66.9 Obesity, unspecified; E11.9 Type 2 diabetes mellitus without complications; E78.5 Hyperlipidemia, unspecified; E03.9 Hypothyroidism, unspecified; G47.33 Obstructive sleep apnea (adult) (pediatric); M79.7 Fibromyalgia; F41.9 Anxiety disorder, unspecified; F31.9 Bipolar disorder, unspecified; Z86.73 Personal history of transient ischemic attack (TIA), and cerebral infarction without residual deficits; Z79.899 Other long term (current) drug therapy
CPT/HCPCS: 36415; 70450; 70551; 71045; 80048; 82550; 82553; 83735; 84484; 85007; 85025; 85610; 85670; 85730; 93005; 93010; 93925; 94760; 96372; 96374; 96375; 96376; 99284; G0378; J1650; J2270; J2405; J3010; J7030

== ENCOUNTER 2019-05-31 20:57 | Emergency (ER) | payer MEDICARE ==
[2019-05-31 21:20] VITALS: BP 112/83
--- NOTE | 2019-05-31 21:21 | Event Note ---
ED Screening Note Date of service: 05/31/19 Time: 21:17 ED Screening Note: 44 y/o female comes in for left side pain that started this morning. Took her pain medication but still having pain. Has a history of fibromygia and lupus. No falls. This initial assessment/diagnostic orders/clinical plan/treatment(s) is/are subject to change based on patients health status, clinical progression and re- assessment by fellow clinical providers in the ED. Further treatment and workup at subsequent clinical providers discretion. Patient/guardian urged not to elope from the ED as their condition may be serious if not clinically assessed and managed. Initial orders include:
[2019-06-01] MEDS ORDERED: MORPHINE IV PRN (00:21)
[2019-06-01] MEDS ORDERED: REGLAN IV ONE (00:21)
[2019-06-01] MEDS ORDERED: DECADRON IV ONE (00:21)
[2019-06-01] MEDS ORDERED: BENADRYL IV ONE (00:21)
--- NOTE | 2019-06-01 01:58 | Emergency Department Report ---
ED General Adult HPI - General Chief complaint: Headache Stated complaint: BACK PAIN Time Seen by Provider: 05/31/19 21:17 Source: patient Mode of arrival: Ambulatory Limitations: No Limitations - History of Present Illness Initial comments: pt is a 44 y/o female who comes in for left side pain that started this morning. Took her pain medication but still having pain. Has a history of fibromygia and lupus. No falls. no cp no sob no back pain no trauma, pt is ambulatory to baseline per patient, is tolerating po intake without n/v Onset/Timin -: days(s) Severity scale (0 -10): 5 Quality: aching Consistency: constant Improves with: none Worsens with: movement Associated Symptoms: malaise. denies: chest pain, cough, nausea/vomiting, shortness of breath, syncope, weakness Treatments Prior to Arrival: none - Related Data Home Medications Medication Instructions Recorded Confirmed Last Taken Linaclotide [Linzess] 290 mcg PO DAILY 04/07/19 04/16/19 04/16/19 Liothyronine Sodium [Cytomel] 5 mcg PO DAILY 04/07/19 04/16/19 04/16/19 Lurasidone HCl [Latuda] 120 mg PO QDAY 04/07/19 04/16/19 04/16/19 Meclizine [Antivert] 25 mg PO TID PRN 04/07/19 04/16/19 04/16/19 Metoprolol [Lopressor TAB] 50 mg PO DAILY 04/07/19 04/16/19 04/16/19 Topiramate [Qudexy Xr] 1 tab PO DAILY 04/07/19 04/16/19 04/16/19 clonazePAM [Klonopin] 1 mg PO DAILY 04/07/19 04/16/19 04/16/19 Fluticasone/Salmeterol [Advair 1 puff IH BID 04/16/19 04/16/19 04/16/19 Diskus 250-50 mcg] Levothyroxine [Synthroid] 300 mcg PO QDAY 04/16/19 04/16/19 04/16/19 Losartan [Cozaar] 100 mg PO QDAY 04/16/19 04/16/19 04/16/19 Lurasidone HCl [Latuda] 120 mg PO QDAY 04/16/19 04/16/1904/16/19 Meclizine [Antivert] 25 mg PO TID PRN 04/16/19 04/16/19 04/16/19 Metoprolol Xl [Metoprolol 50 mg PO QDAY 04/16/19 04/16/19 04/16/19 SUCCINATE ER TAB] Topiramate [Topamax] 200 mg PO QDAY 04/16/19 04/16/19 04/16/19 Trazodone HCl 150 mg PO QDAY 04/16/19 04/16/19 04/16/19 diphenhydrAMINE [Benadryl CAP] 50 mg PO QDAY 04/16/19 04/16/19 04/16/19 hydroCHLOROthiazide [HCTZ] 25 mg PO QDAY 04/16/19 04/16/19 04/16/19 Previous Rx's Medication Instructions Recorded Last Taken Type Dicyclomine [Bentyl] 10 mg PO QID PRN #20 capsule 04/26/19 Unknown Rx Potassium Chloride [K-Dur] 10 meq PO QDAY #7 tablet 05/01/19 Unknown Rx clonazePAM [KlonoPIN] 1 mg PO DAILY #10 tablet 05/01/19 Unknown Rx Acetaminophen [Acetaminophen TAB] 1,000 mg PO Q6HR PRN #60 tablet 06/01/19 Unknown Rx HYDROcodone/APAP 5-325 [Harrison 1 each PO Q6HR PRN #12 tablet 06/01/19 Unknown Rx 5-325 mg TAB] methOCARBAMOL [Robaxin TAB] 500 mg PO BID PRN #20 tab 06/01/19 Unknown Rx predniSONE [Deltasone] 40 mg PO QDAY 5 Days #10 tab 06/01/19 Unknown Rx Allergies Allergy/AdvReac Type Severity Reaction Status Date / Time aspirin Allergy Unknown Verified 04/16/19 11:58 butorphanol tartrate Allergy Seizure Verified 01/20/18 07:51 [From Stadol] latex Allergy Hives Verified 01/20/18 07:51 NSAIDS (Non-Steroidal Allergy Unknown Verified 04/16/19 11:58 Anti-Inflamma ED Review of Systems ROS: Stated complaint: BACK PAIN Other details as noted in HPI Constitutional: denies: chills, fever Eyes: denies: eye pain, eye discharge, vision change ENT: denies: ear pain, throat pain Respiratory: denies: cough, shortness of breath, wheezing Cardiovascular: denies: chest pain, palpitations Endocrine: no symptoms reported Gastrointestinal: denies: abdominal pain, nausea, vomiting, diarrhea Genitourinary: denies: urgency, dysuria, discharge Musculoskeletal: back pain, arthralgia, myalgia. denies: joint swelling Skin: denies: rash, lesions Neurological: denies: headache, weakness, paresthesias Psychiatric: denies: anxiety, depression Hematological/Lymphatic: denies: easy bleeding, easy bruising ED Past Medical Hx - Past Medical History Previous Medical History?: Yes Hx Hypertension: Yes Hx CVA: Yes (TIA) Hx Heart Attack/AMI: No Hx Congestive Heart Failure: No Hx Diabetes: Yes Hx Deep Vein Thrombosis: No Hx Pulmonary Embolism: No Hx Liver Disease: No Hx Renal Disease: Yes (stage 3) Hx of Cancer: No Hx Sickle Cell Disease: No Hx Arthritis: Yes (knees and back) Hx Headaches / Migraines: Yes Hx Seizures: Yes Hx Kidney Stones: Yes Hx Psychiatric Treatment: Yes (Bipolar, Panic Attacks, Anxiety, MDD) Hx Asthma: Yes Hx COPD: No Hx Tuberculosis: No Hx Dementia: No Hx HIV: No Additional medical history: lupus, Gastroparesis, Neuropathy,. high cholesterol, Endometriosis,. bipolar, Fibromylagia, hypothyroidism. anxiety PANIC ATTACK, carpal tunnel syndrome - Surgical History Past Surgical History?: Yes Hx Coronary Stent: No Hx Open Heart Surgery: No Hx Internal Defibrillator: No Hx Cholecystectomy: No Hx Appendectomy: No Hx Breast Surgery: No Additional Surgical History: "rectal repair" after vaginal delivery. lump removed from right arm and right breast - Social History Smoking Status: Never Smoker Substance Use Type: None - Medications Home Medications: Home Medications Medication Instructions Recorded Confirmed Last Taken Type Linaclotide [Linzess] 290 mcg PO DAILY 04/07/19 04/16/19 04/16/19 History Liothyronine Sodium [Cytomel] 5 mcg PO DAILY 04/07/19 04/16/19 04/16/19 History Lurasidone HCl [Latuda] 120 mg PO QDAY 04/07/19 04/16/19 04/16/19 History Meclizine [Antivert] 25 mg PO TID PRN 04/07/19 04/16/19 04/16/19 History Metoprolol [Lopressor TAB] 50 mg PO DAILY 04/07/19 04/16/19 04/16/19 History Topiramate [Qudexy Xr] 1 tab PO DAILY 04/07/19 04/16/19 04/16/19 History clonazePAM [Klonopin] 1 mg PO DAILY 04/07/19 04/16/19 04/16/19 History Fluticasone/Salmeterol [Advair 1 puff IH BID 04/16/19 04/16/19 04/16/19 History Diskus 250-50 mcg] Levothyroxine [Synthroid] 300 mcg PO QDAY 04/16/19 04/16/19 04/16/19 History Losartan [Cozaar] 100 mg PO QDAY 04/16/19 04/16/19 04/16/19 History Lurasidone HCl [Latuda] 120 mg PO QDAY 04/16/19 04/16/19 04/16/19 History Meclizine [Antivert] 25 mg PO TID PRN 04/16/19 04/16/19 04/16/19 History Metoprolol Xl [Metoprolol 50 mg PO QDAY 04/16/19 04/16/19 04/16/19 History SUCCINATE ER TAB] Topiramate [Topamax] 200 mg PO QDAY 04/16/19 04/16/19 04/16/19 History Trazodone HCl 150 mg PO QDAY 04/16/19 04/16/19 04/16/19 History diphenhydrAMINE [Benadryl CAP] 50 mg PO QDAY 04/16/19 04/16/19 04/16/19 History hydroCHLOROthiazide [HCTZ] 25 mg PO QDAY 04/16/19 04/16/19 04/16/19 History Dicyclomine [Bentyl] 10 mg PO QID PRN #20 capsule 04/26/19 Unknown Rx Potassium Chloride [K-Dur] 10 meq PO QDAY #7 tablet 05/01/19 Unknown Rx clonazePAM [KlonoPIN] 1 mg PO DAILY #10 tablet 05/01/19 Unknown Rx Acetaminophen [Acetaminophen TAB] 1,000 mg PO Q6HR PRN #60 tablet 06/01/19 Unknown Rx HYDROcodone/APAP 5-325 [Harrison 1 each PO Q6HR PRN #12 tablet 06/01/19 Unknown Rx 5-325 mg TAB] methOCARBAMOL [Robaxin TAB] 500 mg PO BID PRN #20 tab 06/01/19 Unknown Rx predniSONE [Deltasone] 40 mg PO QDAY 5 Days #10 tab 06/01/19 Unknown Rx ED Physical Exam - General Limitations: No Limitations General appearance: alert, in no apparent distress - Head Head exam: Present: atraumatic, normocephalic - Eye Eye exam: Present: normal appearance - ENT ENT exam: Present: mucous membranes moist - Neck Neck exam: Present: normal inspection - Respiratory Respiratory exam: Present: normal lung sounds bilaterally. Absent: respiratory distress - Cardiovascular Cardiovascular Exam: Present: regular rate, normal rhythm, normal heart sounds. Absent: systolic murmur, diastolic murmur, rubs, gallop - GI/Abdominal GI/Abdominal exam: Present: soft, normal bowel sounds. Absent: distended, tenderness, bruit, hernia - Rectal Rectal exam: Present: deferred - Extremities Exam Extremities exam: Present: normal inspection, full ROM, normal capillary refill - Back Exam Back exam: Present: normal inspection, full ROM, muscle spasm. Absent: tenderness, CVA tenderness (R), CVA tenderness (L), paraspinal tenderness, vertebral tenderness, rash noted - Neurological Exam Neurological exam: Present: alert, oriented X3, CN II-XII intact, normal gait, motor sensory deficit, reflexes normal - Psychiatric Psychiatric exam: Present: normal affect, normal mood - Skin Skin exam: Present: warm, dry, intact, normal color. Absent: rash ED Course Vital Signs 05/31/19 05/31/19 21:00 21:17 Temperature 98.6 F 98.6 F Pulse Rate 98 H 98 H Respiratory 18 18 Rate Blood Pressure 112/83 Blood Pressure 127/82 [Right] O2 Sat by Pulse 98 98 Oximetry ED Medical Decision Making - Medical Decision Making Pain resolved to 10/04 DC'd home with prescription for prednisone diclofenac patient will follow up with rheumatology and PCP in 2-3 days patient verbalized agreement and understanding and signed DC'd to home in stable condition at this time. Critical care attestation.: If time is entered above; I have spent that time in minutes in the direct care of this critically ill patient, excluding procedure time. ED Disposition Clinical Impression: Fibromyalgia Disposition: DC- TO HOME OR SELFCARE Is pt being admited?: No Does the pt Need Aspirin: No Condition: Stable Instructions: Fibromyalgia (ED) Prescriptions: Acetaminophen [Acetaminophen TAB] 1,000 mg PO Q6HR PRN #60 tablet PRN Reason: Pain , Severe (7-10) predniSONE [Deltasone] 40 mg PO QDAY 5 Days #10 tab HYDROcodone/APAP 5-325 [Harrison 5-325 mg TAB] 1 each PO Q6HR PRN #12 tablet PRN Reason: Pain methOCARBAMOL [Robaxin TAB] 500 mg PO BID PRN #20 tab PRN Reason: Muscle Spasm Referrals: LIGIA DURON MD [Referring] - 3-5 Days NAINA WALKER MD [Staff Physician] - 3-5 Days Forms: Work/School Release Form(ED) Time of Disposition: 02:14
== END 2019-06-01 02:20 | disposition home or self-care (01) ==
LOC: ED 20:57
DX: M79.7 Fibromyalgia (principal); I12.9 Hypertensive chronic kidney disease with stage 1 through stage 4 chronic kidney disease, or unspecified chronic kidney disease; E11.22 Type 2 diabetes mellitus with diabetic chronic kidney disease; N18.3 Chronic kidney disease, stage 3 (moderate); M19.90 Unspecified osteoarthritis, unspecified site; G43.909 Migraine, unspecified, not intractable, without status migrainosus; F31.9 Bipolar disorder, unspecified; F41.9 Anxiety disorder, unspecified; J45.909 Unspecified asthma, uncomplicated; E11.40 Type 2 diabetes mellitus with diabetic neuropathy, unspecified; E03.9 Hypothyroidism, unspecified; Z79.4 Long term (current) use of insulin; Z86.73 Personal history of transient ischemic attack (TIA), and cerebral infarction without residual deficits; Z98.890 Other specified postprocedural states; Z79.899 Other long term (current) drug therapy; Z88.8 Allergy status to other drugs, medicaments and biological substances; Z88.6 Allergy status to analgesic agent; Z91.040 Latex allergy status
CPT/HCPCS: 96374; 96375; 99283; J1100; J1200; J2270; J2765

== ENCOUNTER 2019-06-10 10:47 | Emergency (ER) | payer MEDICARE ==
--- NOTE | 2019-06-10 11:54 | Emergency Department Report ---
ED Syncope HPI - General Chief Complaint: Syncope Stated Complaint: PASS OUT/FALL/BACK PAIN Time Seen by Provider: 06/10/19 11:40 Source: patient - History of Present Illness Initial Comments: Patient is 44 years old female with history of bipolar and history of multiple syncopal episodes before. Patient presented to the ER via EMS after 1 syncopal episode that happened while she was at our psychology office. Patient stated that she was sticking out when she asked about. Patient complaining off neck pain and headache. She denied any other injuries. Patient also denied any chest pain or shortness of breath. Timing/Prior Episodes: single episode today Loss of Consciousness: brief (seconds) Current Symptoms: back to normal - Related Data Allergies/Adverse Reactions: Allergies aspirin Allergy (Verified 04/16/19 11:58) Unknown butorphanol tartrate [From Stadol] Allergy (Verified 01/20/18 07:51) Seizure latex Allergy (Verified 01/20/18 07:51) Hives NSAIDS (Non-Steroidal Anti-Inflamma Allergy (Verified 04/16/19 11:58) Unknown Home Medications: Ambulatory Orders Linaclotide [Linzess] 290 mcg PO DAILY 04/07/19 Liothyronine Sodium [Cytomel] 5 mcg PO DAILY 04/07/19 Lurasidone HCl [Latuda] 120 mg PO QDAY 04/07/19 Meclizine [Antivert] 25 mg PO TID PRN 04/07/19 Metoprolol [Lopressor TAB] 50 mg PO DAILY 04/07/19 Topiramate [Qudexy Xr] 1 tab PO DAILY 04/07/19 clonazePAM [Klonopin] 1 mg PO DAILY 04/07/19 Fluticasone/Salmeterol [Advair Diskus 250-50 mcg] 1 puff IH BID 04/16/19 Levothyroxine [Synthroid] 300 mcg PO QDAY 04/16/19 Losartan [Cozaar] 100 mg PO QDAY 04/16/19 Lurasidone HCl [Latuda] 120 mg PO QDAY 04/16/19 Meclizine [Antivert] 25 mg PO TID PRN 04/16/19 Metoprolol Xl [Metoprolol SUCCINATE ER TAB] 50 mg PO QDAY 04/16/19 Topiramate [Topamax] 200 mg PO QDAY 04/16/19 Trazodone HCl 150 mg PO QDAY 04/16/19 diphenhydrAMINE [Benadryl CAP] 50 mg PO QDAY 04/16/19 hydroCHLOROthiazide [HCTZ] 25 mg PO QDAY 04/16/19 Dicyclomine [Bentyl] 10 mg PO QID PRN #20 capsule 04/26/19 Potassium Chloride [K-Dur] 10 meq PO QDAY #7 tablet 05/01/19 clonazePAM [KlonoPIN] 1 mg PO DAILY #10 tablet 05/01/19 Acetaminophen [Acetaminophen TAB] 1,000 mg PO Q6HR PRN #60 tablet 06/01/19 HYDROcodone/APAP 5-325 [Orem 5-325 mg TAB] 1 each PO Q6HR PRN #12 tablet 06/01/19 ED Review of Systems ROS: Stated complaint: PASS OUT/FALL/BACK PAIN Other details as noted in HPI Comment: All other systems reviewed and negative Constitutional: denies: chills, fever Respiratory: denies: cough, shortness of breath, SOB with exertion, SOB at rest, wheezing Cardiovascular: denies: chest pain, palpitations Gastrointestinal: denies: abdominal pain, nausea, vomiting, diarrhea, constipa tion, hematemesis, melena, hematochezia Musculoskeletal: denies: back pain Neurological: denies: headache, weakness, numbness, paresthesias, confusion ED Past Medical Hx - Past Medical History Hx Hypertension: Yes Hx CVA: Yes (TIA) Hx Heart Attack/AMI: No Hx Congestive Heart Failure: No Hx Diabetes: Yes Hx Deep Vein Thrombosis: No Hx Pulmonary Embolism: No Hx Liver Disease: No Hx Renal Disease: Yes (stage 3) Hx Sickle Cell Disease: No Hx Arthritis: Yes (knees and back) Hx Headaches / Migraines: Yes Hx Seizures: Yes Hx Kidney Stones: Yes Hx Psychiatric Treatment: Yes (Bipolar, Panic Attacks, Anxiety, MDD) Hx Asthma: Yes Hx COPD: No Hx Tuberculosis: No Hx Dementia: No Hx HIV: No Additional medical history: lupus, Gastroparesis, Neuropathy,. high cholesterol, Endometriosis,. bipolar, Fibromylagia, hypothyroidism. anxiety PANIC ATTACK, carpal tunnel syndrome - Surgical History Hx Coronary Stent: No Hx Open Heart Surgery: No Hx Internal Defibrillator: No Hx Cholecystectomy: No Hx Appendectomy: No Hx Breast Surgery: No Additional Surgical History: "rectal repair" after vaginal delivery. lump removed from right arm and right breast - Social History Smoking Status: Never Smoker Substance Use Type: None - Medications Home Medications: Home Medications Medication Instructions Recorded Confirmed Last Taken Type Linaclotide [Linzess] 290 mcg PO DAILY 04/07/19 06/10/19 06/10/19 History Liothyronine Sodium [Cytomel] 5 mcg PO DAILY 04/07/19 06/10/19 06/10/19 History Lurasidone HCl [Latuda] 120 mg PO QDAY 04/07/19 06/10/19 06/10/19 History Meclizine [Antivert] 25 mg PO TID PRN 04/07/19 06/10/19 06/10/19 History Metoprolol [Lopressor TAB] 50 mg PO DAILY 04/07/19 06/10/19 06/10/19 History Topiramate [Qudexy Xr] 1 tab PO DAILY 04/07/19 06/10/19 06/10/19 History clonazePAM [Klonopin] 1 mg PO DAILY 04/07/19 06/10/19 06/10/19 History Fluticasone/Salmeterol [Advair 1 puff IH BID 04/16/19 06/10/19 06/10/19 History Diskus 250-50 mcg] Levothyroxine [Synthroid] 300 mcg PO QDAY 04/16/19 06/10/19 06/10/19 History Losartan [Cozaar] 100 mg PO QDAY 04/16/19 06/10/19 06/10/19 History Lurasidone HCl [Latuda] 120 mg PO QDAY 04/16/19 06/10/19 06/10/19 History Meclizine [Antivert] 25 mg PO TID PRN 04/16/19 06/10/19 06/10/19 History Metoprolol Xl [Metoprolol 50 mg PO QDAY 04/16/19 06/10/19 06/10/19 History SUCCINATE ER TAB] Topiramate [Topamax] 200 mg PO QDAY 04/16/19 06/10/19 06/10/19 History Trazodone HCl 150 mg PO QDAY 04/16/19 06/10/19 06/10/19 History diphenhydrAMINE [Benadryl CAP] 50 mg PO QDAY 04/16/19 06/10/19 06/10/19 History hydroCHLOROthiazide [HCTZ] 25 mg PO QDAY 04/16/19 06/10/19 06/10/19 History Dicyclomine [Bentyl] 10 mg PO QID PRN #20 capsule 04/26/19 06/10/19 06/10/19 Rx Potassium Chloride [K-Dur] 10 meq PO QDAY #7 tablet 05/01/19 06/10/19 06/10/19 Rx clonazePAM [KlonoPIN] 1 mg PO DAILY #10 tablet 05/01/19 06/10/19 06/10/19 Rx Acetaminophen [Acetaminophen TAB] 1,000 mg PO Q6HR PRN #60 tablet 06/01/19 06/10/19 06/10/19 Rx HYDROcodone/APAP 5-325 [[place] 1 each PO Q6HR PRN #12 tablet 06/01/19 06/10/19 06/10/19 Rx 5-325 mg TAB] ED Physical Exam - General Limitations: No Limitations General appearance: alert, in no apparent distress - Head Head exam: Present: atraumatic, normocephalic, normal inspection - Eye Eye exam: Present: normal appearance, PERRL - ENT ENT exam: Present: normal exam, normal orophraynx, mucous membranes moist - Neck Neck exam: Present: normal inspection, full ROM. Absent: tenderness, meningismus, lymphadenopathy, thyromegaly - Respiratory Respiratory exam: Present: normal lung sounds bilaterally - Cardiovascular Cardiovascular Exam: Present: regular rate, normal rhythm, normal heart sounds - GI/Abdominal GI/Abdominal exam: Present: soft, normal bowel sounds. Absent: distended, tende rness, guarding, rebound, rigid, organomegaly, mass, bruit, pulsatile mass, hernia - Extremities Exam Extremities exam: Present: normal inspection, full ROM, normal capillary refill - Back Exam Back exam: Present: normal inspection, full ROM. Absent: CVA tenderness (R), CVA tenderness (L), muscle spasm, paraspinal tenderness, vertebral tenderness - Neurological Exam Neurological exam: Present: alert, oriented X3, CN II-XII intact, normal gait, reflexes normal. Absent: abnormal gait, motor sensory deficit - Psychiatric Psychiatric exam: Present: normal mood - Skin Skin exam: Present: warm, intact, normal color ED Course Vital Signs 06/10/19 11:22 Temperature 97.4 F L Pulse Rate 83 Respiratory 16 Rate Blood Pressure 115/76 O2 Sat by Pulse 97 Oximetry ED Medical Decision Making - Lab Data Result diagrams: 06/10/19 13:40 06/10/19 12:54 - EKG Data -: EKG Interpreted by De EKG shows normal: sinus rhythm Rate: normal - EKG Data Interpretation: no acute changes - Radiology Data Radiology results: report reviewed Referring Physician: TONJA VARGAS Patient Name: BERT MISTRY Date of : 1975 Sex: Female Report Date: 2019-06-10 Report Status: Finalized Findings [facility] [address] [place] [address] Cat Scan Report Signed Patient: BERT MISTRY MR#: [id number] : 1975 Acct:[id number] Age/Sex: 44 / F ADM Date: 06/10/19 Loc: ED Attending Dr: Ordering Physician: TONJA VARGAS Date of Service: 06/10/19 Procedure(s): CT head/brain wo con Accession Number(s): [id number] cc: TONJA VARGAS CT HEAD WITHOUT CONTRAST INDICATION / CLINICAL INFORMATION: Syncope. TECHNIQUE: Axial imaging performed from the skull apex through the skull base without the use of contrast. Sagittal and coronal reformatted images. All CT scans at this location are performed using CT dose reduction for ALARA by means of automated exposure control. COMPARISON: 04/29/2019 FINDINGS: CEREBRAL PARENCHYMA: No significant abnormality. No acute territorial infarct. HEMORRHAGE: None. EXTRA-AXIAL SPACES: Normal in size and morphology for the patient's age. VENTRICULAR SYSTEM: Normal in size and morphology for the patient's age. MIDLINE SHIFT OR HERNIATION: None. CEREBELLUM / BRAINSTEM: No significant abnormality. CALVARIUM: No significant abnormality. ORBITS: Normal as visualized. PARANASAL SINUSES / MASTOID AIR CELLS: Normal as visualized. SOFT TISSUES of HEAD: No significant abnormality. ADDITIONAL FINDINGS: None. IMPRESSION: No acute intracranial abnormality. Signer Name: Reagan Romano Jr, MD Signed: 06/10/2019 3:17 PM Workstation Name: [id number] Transcribed By: KHADAR Dictated By: REAGAN ROMANO JR, MD Electronically Authenticated By: REAGAN ROMANO JR, MD Signed Date/Time: 06/10/19 1517 Referring Physician: TONJA VARGAS Patient Name: BERT MISTRY Date of : 1975 Sex: Female Report Date: 2019-06-10 Report Status: Finalized Findings [facility] [address] [place] [address] Cat Scan Report Signed Patient: BERT MISTRY MR#: [id number] : 1975 Acct:[id number] Age/Sex: 44 / F ADM Date: 06/10/19 Loc: ED Attending Dr: Ordering Physician: TONJA VARGAS Date of Service: 06/10/19 Procedure(s): CT cervical spine wo con Accession Number(s): [id number] cc: TONJA VARGAS CT CERVICAL SPINE: 06/10/2019 INDICATION / CLINICAL INFORMATION: Syncope/ neck injury. COMPARISON: None available. FINDINGS: CT images of the cervical spine were obtained. Images are evaluated in the axial, coronal, and sagittal planes. There is no evidence of acute abnormality. Reversal of cervical lordosis is centered at the C5-6 level. Degenerative disc space narrowing and degenerative osteophyte formation is present at this level. Vertebral body alignment is otherwise unremarkable. CRANIOCERVICAL JUNCTION: Unremarkable. PARASPINAL STRUCTURES: Unremarkable. IMPRESSION: No acute abnormality. All CT scans at this location are performed using dose reduction to ALARA by means of automated exposure control. Signer Name: Berto Weber MD Signed: 06/10/2019 3:22 PM Workstation Name: [id number] Transcribed By: AO Dictated By: Berto Weber MD Electronically Authenticated By: Berto Weber MD Signed Date/Time: 06/10/19 1522 DD/ 1520 TD/TT: DD/ 1516 TD/TT: - Medical Decision Making Patient is 44 years old female with history of bipolar and history of multiple syncopal episodes before. Patient presented to the ER via EMS after 1 syncopal episode that happened while she was at our psychology office. Patient stated that she was sticking out when she asked about. Patient complaining off neck pain and headache. She denied any other injuries. Patient also denied any chest pain or shortness of breath. Patient is stated that she is feeling much better. Labs reviewed and is unremarkable. CT bran, CT cervical spine is negative for acute finding. Patient advised to follow-up with her primary care physician for outpatient workup of syncopal episodes since this is been happening more frequent. Patient also advised to the ER if symptoms are not improved. Critical care attestation.: If time is entered above; I have spent that time in minutes in the direct care of this critically ill patient, excluding procedure time. ED Disposition Clinical Impression: Syncope, Head injury, Neck pain Disposition: DC-01 TO HOME OR SELFCARE Is pt being admited?: No Condition: Stable Instructions: Syncope (ED) Referrals: INOCENTE ESTES MD [Primary Care Provider] - 3-5 Days PRIMARY CAREMD [Referring] - 3-5 Days
[2019-06-10 13:28] LABS: Alanine Aminotransferase 16 units/L (7-56); Albumin 3.6 g/dL (3.9-5)
[2019-06-10 13:29] LABS: Bilirubin,Direct < 0.2 mg/dL (0-0.2)
[2019-06-10 13:41] LABS: BUN/Creatinine Ratio 8; Blood Urea Nitrogen 7 mg/dL (7-17)
[2019-06-10 14:04] LABS: Basophils # (Auto) 0.1 K/mm3 (0.0-0.1); Basophils % (Auto) 1.2 % (0.0-1.8); Eosinophils # (Auto) 0.2 K/mm3 (0.0-0.4); Eosinophils % (Auto) 1.8 % (0.0-4.3); Hematocrit 31.2 % (30.3-42.9); Hemoglobin 10.3 gm/dl (10.1-14.3); Lymphocytes # (Auto) 3.8 K/mm3 (1.2-5.4); Lymphocytes % (Auto) 36.2 % (13.4-35.0); Mean Corpuscular HGB Conc 33 % (30-34); Mean Corpuscular Volume 88 fl (79-97); Monocytes # (Auto) 0.7 K/mm3 (0.0-0.8); Monocytes % (Auto) 6.3 % (0.0-7.3); Platelet Count 467 K/mm3 (140-440); Red Blood Count 3.54 M/mm3 (3.65-5.03); Red Cell Distribution Width 13.9 % (13.2-15.2)
[2019-06-10 14:50] LABS: Calcium 9.2 mg/dL (8.4-10.2)
--- NOTE | 2019-06-10 15:22 | Cat Scan Report ---
CT HEAD WITHOUT CONTRAST INDICATION / CLINICAL INFORMATION: Syncope. TECHNIQUE: Axial imaging performed from the skull apex through the skull base without the use of cont rast. Sagittal and coronal reformatted images. All CT scans at this location are performed using CT dose reduction for ALARA by means of automated exposure control. COMPARISON: 04/29/2019 FINDINGS: CEREBRAL PARENCHYMA: No significant abnormality. No acute territorial infarct. HEMORRHAGE: None. EXTRA-AXIAL SPACES: Normal in size and morphology for the patient's age. VENTRICULAR SYSTEM: Normal in size and morphology for the patient's age. MIDLINE SHIFT OR HERNIATION: None. CEREBELLUM / BRAINSTEM: No significant abnormality. CALVARIUM: No significant abnormality. ORBITS: Normal as visualized. PARANASAL SINUSES / MASTOID AIR CELLS: Normal as visualized. SOFT TISSUES of HEAD: No significant abnormality. ADDITIONAL FINDINGS: None. IMPRESSION: No acute intracranial abnormality. Signer Name: Reagan Romano Jr, MD Signed: 06/10/2019 3:17 PM Workstation Name: [id number]
--- NOTE | 2019-06-10 15:26 | Cat Scan Report ---
CT CERVICAL SPINE: 06/10/2019 INDICATION / CLINICAL INFORMATION: Syncope/ neck injury. COMPARISON: None available. FINDINGS: CT images of the cervical spine were obtained. Images are evaluated in the axial, coronal, and sagit jimena planes. There is no evidence of acute abnormality. Reversal of cervical lordosis is centered at the C5-6 level. Degenerative disc space narrowing and de generative osteophyte formation is present at this level. Vertebral body alignment is otherwise unrem arkable. CRANIOCERVICAL JUNCTION: Unremarkable. PARASPINAL STRUCTURES: Unremarkable. IMPRESSION: No acute abnormality. All CT scans at this location are performed using dose reduction to ALARA by means of automated expos ure control. Signer Name: Berto Weber MD Signed: 06/10/2019 3:22 PM Workstation Name: [id number]
[2019-06-10 16:15] VITALS: BP 122/85
== END 2019-06-10 16:15 | disposition home or self-care (01) ==
LOC: ED 10:47
DX: S09.90XA Unspecified injury of head, initial encounter (principal); R55 Syncope and collapse; M54.2 Cervicalgia; I10 Essential (primary) hypertension; E11.9 Type 2 diabetes mellitus without complications; E11.22 Type 2 diabetes mellitus with diabetic chronic kidney disease; I12.9 Hypertensive chronic kidney disease with stage 1 through stage 4 chronic kidney disease, or unspecified chronic kidney disease; N18.3 Chronic kidney disease, stage 3 (moderate); M19.90 Unspecified osteoarthritis, unspecified site; G43.909 Migraine, unspecified, not intractable, without status migrainosus; J45.909 Unspecified asthma, uncomplicated; F31.9 Bipolar disorder, unspecified; E11.40 Type 2 diabetes mellitus with diabetic neuropathy, unspecified; E78.00 Pure hypercholesterolemia, unspecified; E03.9 Hypothyroidism, unspecified; E11.43 Type 2 diabetes mellitus with diabetic autonomic (poly)neuropathy; K31.84 Gastroparesis; G56.00 Carpal tunnel syndrome, unspecified upper limb; Z79.899 Other long term (current) drug therapy; Z88.6 Allergy status to analgesic agent; Z91.040 Latex allergy status; Z88.8 Allergy status to other drugs, medicaments and biological substances; X58.XXXA Exposure to other specified factors, initial encounter; Y93.89 Activity, other specified; Y92.89 Other specified places as the place of occurrence of the external cause; Y99.8 Other external cause status
CPT/HCPCS: 36415; 70450; 72125; 80048; 80076; 84484; 84703; 85025; 93005; 93010

== ENCOUNTER 2019-07-30 03:31 | Emergency (ER) | payer MEDICARE ==
[2019-07-30] MEDS ORDERED: KETOROLAC 60 MG/2 ML INJ IM ONE (04:40)
--- NOTE | 2019-07-30 05:20 | Emergency Department Report ---
ED Back Pain/Injury HPI - General Chief Complaint: Back Pain/Injury Stated Complaint: NECK AND BACK PAIN Time Seen by Provider: 07/30/19 04:32 Source: patient Limitations: No Limitations - History of Present Illness Initial Comments: This is a 44-year-old female nontoxic, well nourished in appearance, no acute signs of distress presents to the ED with c/o of acute on chronic lower back pain. Patient stated that the past 2 days she been playing with grandson and was lifting him and started to have lower back pains. Patient states has history of sciatica nerve pain which is similar symptoms as today. Upon exam, patient denies any neck pain or injuries. Patient states that pain radiates through to his right lower extremity. Patient denies any trauma. Denies any bladder or bowel instability. Patient denies any urinary symptoms. Denies any fever, chills, nausea, vomiting, headache, stiff neck, chest pain or shortness of breath. Patient denies any numbness or tingling. Patient stated allergies to aspirin, Stadol, latex and NSAIDs but patient stated has no allergies to Toradol as she had it before. Past medical history includes arthritis, asthma, CVA, diabetes, headaches, hypertension, kidney stones and psych. MD Complaint: back pain -: days(s) Similar Symptoms Previously: Yes Place: home Radiation: right leg Severity: mild Severity scale (0 -10): 8 Quality: aching Consistency: intermittent Improves With: immobilization, sitting upright Worsens With: movement, walking Context: while lifting, turning/twisting Associated Symptoms: denies other symptoms. denies: confusion, weakness, chest pain, numbness, difficulty walking, cough, difficulty urinating, diaphoresis, incontinence, fever/chills, constipation, headaches, abdominal pain, loss of appetite, malaise, nausea/vomiting, rash, seizure, shortness of breath, syncope - Related Data Home Medications Medication Instructions Recorded Confirmed Last Taken Linaclotide [Linzess] 290 mcg PO DAILY 04/07/19 06/10/19 06/10/19 Liothyronine Sodium [Cytomel] 5 mcg PO DAILY 04/07/19 06/10/19 06/10/19 Lurasidone HCl [Latuda] 120 mg PO QDAY 04/07/19 06/10/19 06/10/19 Meclizine [Antivert] 25 mg PO TID PRN 04/07/19 06/10/19 06/10/19 Metoprolol [Lopressor TAB] 50 mg PO DAILY 04/07/19 06/10/19 06/10/19 Topiramate [Qudexy Xr] 1 tab PO DAILY 04/07/19 06/10/19 06/10/19 clonazePAM [Klonopin] 1 mg PO DAILY 04/07/19 06/10/19 06/10/19 Fluticasone/Salmeterol [Advair 1 puff IH BID 04/16/19 06/10/19 06/10/19 Diskus 250-50 mcg] Levothyroxine [Synthroid] 300 mcg PO QDAY 04/16/19 06/10/19 06/10/19 Losartan [Cozaar] 100 mg PO QDAY 04/16/19 06/10/19 06/10/19 Lurasidone HCl [Latuda] 120 mg PO QDAY 04/16/19 06/10/19 06/10/19 Meclizine [Antivert] 25 mg PO TID PRN 04/16/19 06/10/19 06/10/19 Metoprolol Xl [Metoprolol 50 mg PO QDAY 04/16/19 06/10/19 06/10/19 SUCCINATE ER TAB] Topiramate [Topamax] 200 mg PO QDAY 04/16/19 06/10/19 06/10/19 Trazodone HCl 150 mg PO QDAY 04/16/19 06/10/19 06/10/19 diphenhydrAMINE [Benadryl CAP] 50 mg PO QDAY 04/16/19 06/10/19 06/10/19 hydroCHLOROthiazide [HCTZ] 25 mg PO QDAY 04/16/19 06/10/19 06/10/19 Previous Rx's Medication Instructions Recorded Last Taken Type Dicyclomine [Bentyl] 10 mg PO QID PRN #20 capsule 04/26/19 06/10/19 Rx Potassium Chloride [K-Dur] 10 meq PO QDAY #7 tablet 05/01/19 06/10/19 Rx clonazePAM [KlonoPIN] 1 mg PO DAILY #10 tablet 05/01/19 06/10/19 Rx Acetaminophen [Acetaminophen TAB] 1,000 mg PO Q6HR PRN #60 tablet 06/01/19 06/10/19 Rx HYDROcodone/APAP 5-325 [[place] 1 each PO Q6HR PRN #12 tablet 06/01/19 06/10/19 Rx 5-325 mg TAB] Acetaminophen [Acetaminophen 8 650 mg PO Q8H PRN #20 tablet.er 07/30/19 Unknown Rx Hour] Cyclobenzaprine [Flexeril] 10 mg PO QHS PRN #10 tablet 07/30/19 Unknown Rx Allergies Allergy/AdvReac Type Severity Reaction Status Date / Time aspirin Allergy Unknown Verified 04/16/19 11:58 butorphanol tartrate Allergy Seizure Verified 01/20/18 07:51 [From Stadol] latex Allergy Hives Verified 01/20/18 07:51 NSAIDS (Non-Steroidal Allergy Unknown Verified 04/16/19 11:58 Anti-Inflamma ED Review of Systems ROS: Stated complaint: NECK AND BACK PAIN Other details as noted in HPI Constitutional: denies: chills, fever Eyes: denies: eye pain, eye discharge, vision change ENT: denies: ear pain, throat pain Respiratory: denies: cough, shortness of breath, wheezing Cardiovascular: denies: chest pain, palpitations Endocrine: no symptoms reported Gastrointestinal: denies: abdominal pain, nausea, diarrhea Genitourinary: denies: urgency, dysuria, discharge Musculoskeletal: back pain. denies: joint swelling, arthralgia Skin: denies: rash, lesions Neurological: denies: headache, weakness, paresthesias Psychiatric: denies: anxiety, depression Hematological/Lymphatic: denies: easy bleeding, easy bruising ED Past Medical Hx - Past Medical History Hx Hypertension: Yes Hx CVA: Yes (TIA) Hx Heart Attack/AMI: No Hx Congestive Heart Failure: No Hx Diabetes: Yes Hx Deep Vein Thrombosis: No Hx Pulmonary Embolism: No Hx Liver Disease: No Hx Renal Disease: Yes (stage 3) Hx Sickle Cell Disease: No Hx Arthritis: Yes (knees and back) Hx Headaches / Migraines: Yes Hx Seizures: Yes Hx Kidney Stones: Yes Hx Psychiatric Treatment: Yes (Bipolar, Panic Attacks, Anxiety, MDD) Hx Asthma: Yes Hx COPD: No Hx Tuberculosis: No Hx Dementia: No Hx HIV: No Additional medical history: lupus, Gastroparesis, Neuropathy,. high cholesterol, Endometriosis,. bipolar, Fibromylagia, hypothyroidism. anxiety PANIC ATTACK, carpal tunnel syndrome - Surgical History Hx Coronary Stent: No Hx Open Heart Surgery: No Hx Internal Defibrillator: No Hx Cholecystectomy: No Hx Appendectomy: No Hx Breast Surgery: No Additional Surgical History: "rectal repair" after vaginal delivery. lump removed from right arm and right breast - Social History Smoking Status: Never Smoker Substance Use Type: Alcohol - Medications Home Medications: Home Medications Medication Instructions Recorded Confirmed Last Taken Type Linaclotide [Linzess] 290 mcg PO DAILY 04/07/19 06/10/19 06/10/19 History Liothyronine Sodium [Cytomel] 5 mcg PO DAILY 04/07/19 06/10/19 06/10/19 History Lurasidone HCl [Latuda] 120 mg PO QDAY 04/07/19 06/10/19 06/10/19 History Meclizine [Antivert] 25 mg PO TID PRN 04/07/19 06/10/19 06/10/19 History Metoprolol [Lopressor TAB] 50 mg PO DAILY 04/07/19 06/10/19 06/10/19 History Topiramate [Qudexy Xr] 1 tab PO DAILY 04/07/19 06/10/19 06/10/19 History clonazePAM [Klonopin] 1 mg PO DAILY 04/07/19 06/10/19 06/10/19 History Fluticasone/Salmeterol [Advair 1 puff IH BID 04/16/19 06/10/19 06/10/19 History Diskus 250-50 mcg] Levothyroxine [Synthroid] 300 mcg PO QDAY 04/16/19 06/10/19 06/10/19 History Losartan [Cozaar] 100 mg PO QDAY 04/16/19 06/10/19 06/10/19 History Lurasidone HCl [Latuda] 120 mg PO QDAY 04/16/19 06/10/19 06/10/19 History Meclizine [Antivert] 25 mg PO TID PRN 04/16/19 06/10/19 06/10/19 History Metoprolol Xl [Metoprolol 50 mg PO QDAY 04/16/19 06/10/19 06/10/19 History SUCCINATE ER TAB] Topiramate [Topamax] 200 mg PO QDAY 0706/10/19 06/10/19 History Trazodone HCl 150 mg PO QDAY 04/16/19 06/10/19 06/10/19 History diphenhydrAMINE [Benadryl CAP] 50 mg PO QDAY 04/16/19 06/10/19 06/10/19 History hydroCHLOROthiazide [HCTZ] 25 mg PO QDAY 04/16/19 06/10/19 06/10/19 History Dicyclomine [Bentyl] 10 mg PO QID PRN #20 capsule 04/26/19 06/10/19 06/10/19 Rx Potassium Chloride [K-Dur] 10 meq PO QDAY #7 tablet 05/01/19 06/10/19 06/10/19 Rx clonazePAM [KlonoPIN] 1 mg PO DAILY #10 tablet 05/01/19 06/10/19 06/10/19 Rx Acetaminophen [Acetaminophen TAB] 1,000 mg PO Q6HR PRN #60 tablet 06/01/19 06/10/19 06/10/19 Rx HYDROcodone/APAP 5-325 [[place] 1 each PO Q6HR PRN #12 tablet 06/01/19 06/10/19 06/10/19 Rx 5-325 mg TAB] Acetaminophen [Acetaminophen 8 650 mg PO Q8H PRN #20 tablet.er 07/30/19 Unknown Rx Hour] Cyclobenzaprine [Flexeril] 10 mg PO QHS PRN #10 tablet 07/30/19 Unknown Rx ED Physical Exam - General Limitations: No Limitations General appearance: alert, in no apparent distress - Head Head exam: Present: atraumatic, normocephalic - Neck Neck exam: Present: normal inspection, full ROM. Absent: tenderness, meningismus, lymphadenopathy - Extremities Exam Extremities exam: Present: normal inspection, full ROM, normal capillary refill. Absent: tenderness, joint swelling - Back Exam Back exam: Present: normal inspection, full ROM, paraspinal tenderness (right sided lumbar paraspinal area). Absent: tenderness, CVA tenderness (R), CVA tenderness (L), muscle spasm, vertebral tenderness, rash noted - Expanded Back Exam Expanded Back exam: Absent: saddle anesthesia Back exam: Negative Straight Leg Raising: Left, Right - Neurological Exam Neurological exam: Present: alert, oriented X3, normal gait - Psychiatric Psychiatric exam: Present: normal affect, normal mood - Skin Skin exam: Present: warm, dry, intact, normal color. Absent: rash ED Course Vital Signs 07/30/19 03:35 Temperature 98.7 F Pulse Rate 109 H Respiratory 18 Rate Blood Pressure 154/106 O2 Sat by Pulse 97 Oximetry - Reevaluation(s) Reevaluation #1: 07/30/19 05:19 Patient is speaking in full sentences with no signs of distress noted. ED Medical Decision Making - Medical Decision Making This is a 44-year-old female that presents with low back strain. Patient is stable was examined by me. There is no spinal tenderness. There is no cauda equina syndrome during examination. No bladder or bowel instability. Patient received Toradol 60 mg IM in the ED which stated her symptoms has resolved and subsided. Patient is discharged with muscle relaxant and Tylenol. Patient was instructed not to operate any machinery while taking muscle relaxant as they cause her drowsiness. Patient was referred to Follow-up with a primary care doctor in 3-5 days or if symptoms worsen and continue return to emergency room as soon as possible. At time of discharge, the patient does not seem toxic or ill in appearance. No acute signs of distress noted. Patient agrees to discharge treatment plan of care. No further questions noted by the patient. This chart is dictated with using [employer] Dictation Program Critical care attestation.: If time is entered above; I have spent that time in minutes in the direct care of this critically ill patient, excluding procedure time. ED Disposition Clinical Impression: Low back strain Qualifiers: Encounter type: initial encounter Qualified Code(s): S39.012A - Strain of muscle, fascia and tendon of lower back, initial encounter Disposition: - TO HOME OR SELFCARE Is pt being admited?: No Does the pt Need Aspirin: No Condition: Stable Instructions: Low Back Strain (ED), Cyclobenzaprine (By mouth) Additional Instructions: Follow-up with your primary care doctor in 3-5 days or if symptoms worsen such as bladder or bowel stability, chest pain, short of breath, numbness or tingling sensation in extremities, headache, dizziness, visual changes, nausea vomiting, or abdominal pain, return back to emergency room as was possible. Take Tylenol and Flexeril as prescribed. Do not operate heavy machinery while taking Flexeril due to sedation Prescriptions: Cyclobenzaprine [Flexeril] 10 mg PO QHS PRN #10 tablet PRN Reason: Muscle Spasm Acetaminophen [Acetaminophen 8 Hour] 650 mg PO Q8H PRN #20 tablet.er PRN Reason: Pain , Severe (7-10) Referrals: PRIMARY CARE, [Referring] - 3-5 Days NAINA COBOS MD [Staff Physician] - 3-5 Days [facility] [Outside] - 3-[address] [facility] [Outside] - 3-5 Days Forms: Work/School Release Form(ED)
[2019-07-30 06:16] VITALS: BP 140/104
== END 2019-07-30 05:30 | disposition home or self-care (01) ==
LOC: ED 03:31
DX: S39.012A Strain of muscle, fascia and tendon of lower back, initial encounter (principal); S16.1XXA Strain of muscle, fascia and tendon at neck level, initial encounter; I12.9 Hypertensive chronic kidney disease with stage 1 through stage 4 chronic kidney disease, or unspecified chronic kidney disease; N18.3 Chronic kidney disease, stage 3 (moderate); E11.22 Type 2 diabetes mellitus with diabetic chronic kidney disease; G43.909 Migraine, unspecified, not intractable, without status migrainosus; F31.9 Bipolar disorder, unspecified; F41.0 Panic disorder [episodic paroxysmal anxiety]; J45.909 Unspecified asthma, uncomplicated; M32.9 Systemic lupus erythematosus, unspecified; E11.40 Type 2 diabetes mellitus with diabetic neuropathy, unspecified; E78.00 Pure hypercholesterolemia, unspecified; M79.7 Fibromyalgia; E03.9 Hypothyroidism, unspecified; Z91.040 Latex allergy status; Z86.73 Personal history of transient ischemic attack (TIA), and cerebral infarction without residual deficits; Z88.6 Allergy status to analgesic agent; Z79.899 Other long term (current) drug therapy; Z88.7 Allergy status to serum and vaccine; X50.0XXA Overexertion from strenuous movement or load, initial encounter; Y93.89 Activity, other specified; Y92.89 Other specified places as the place of occurrence of the external cause; Y99.8 Other external cause status
CPT/HCPCS: 96372; 99282; J1885

== ENCOUNTER 2019-08-12 20:32 | Emergency (ER) | payer MEDICARE ==
[2019-08-12 20:44] VITALS: BP 119/80
[2019-08-12] MEDS ORDERED: CYCLOBENZAPRINE 10 MG TAB PO ONE (23:42)
[2019-08-12] MEDS ORDERED: oxyCODONE /ACETAMINOPHEN 5-325MG TAB PO ONE (23:42)
--- NOTE | 2019-08-12 23:49 | Emergency Department Report ---
ED Back Pain/Injury HPI - General Chief Complaint: Back Pain/Injury Stated Complaint: LOWER BACK LT LEG PAIN Time Seen by Provider: 08/12/19 23:37 Source: patient Limitations: No Limitations - History of Present Illness Initial Comments: Mrs. Prado is a 44 yo female with hx of fibromyalgia, lupus, arthritis, asthma, TIA, diabetes mellitus, headaches, hypertension, kidney stones, bipolar disorder, anxiety disorder, major depressive disorder, gastroparesis stage III kidney disease, neuropathy, dyslipidemia, endometriosis, hypothyroidism, carpal tunnel syndrome presents with back pain. She injured her back while grabbing picking up her grandson. She felt as if she twisted the wrong way. The injury occurred on yesterday. Has had previous history of back pain. She is followed by a pain specialist. She takes morphine 15 mg tablets twice a day. It does not control the pain. The morphine is only putting her to sleep. Denies leg weakness. The pain is 10 out of 10 beginning at lower back radiates to both legs. Able to walk but in pain. MD Complaint: back pain -: Sudden, days(s) (1) Similar Symptoms Previously: Yes Place: home Radiation: left leg, right leg Severity: severe Severity scale (0 -10): 10 Quality: sharp Consistency: constant Improves With: none Worsens With: movement Context: while lifting, turning/twisting, bending Associated Symptoms: denies other symptoms - Related Data Home Medications Medication Instructions Recorded Confirmed Last Taken Linaclotide [Linzess] 290 mcg PO DAILY 04/07/19 06/10/19 06/10/19 Liothyronine Sodium [Cytomel] 5 mcg PO DAILY 04/07/19 06/10/19 06/10/19 Lurasidone HCl [Latuda] 120 mg PO QDAY 04/07/19 06/10/19 06/10/19 Meclizine [Antivert] 25 mg PO TID PRN 04/07/19 06/10/19 06/10/19 Metoprolol [Lopressor TAB] 50 mg PO DAILY 04/07/19 06/10/19 06/10/19 Topiramate [Qudexy Xr] 1 tab PO DAILY 04/07/19 06/10/19 06/10/19 clonazePAM [Klonopin] 1 mg PO DAILY 04/07/19 06/10/19 06/10/19 Fluticasone/Salmeterol [Advair 1 puff IH BID 04/16/19 06/10/19 06/10/19 Diskus 250-50 mcg] Levothyroxine [Synthroid] 300 mcg PO QDAY 04/16/19 06/10/19 06/10/19 Losartan [Cozaar] 100 mg PO QDAY 04/16/19 06/10/19 06/10/19 Lurasidone HCl [Latuda] 120 mg PO QDAY 04/16/19 06/10/19 06/10/19 Meclizine [Antivert] 25 mg PO TID PRN 04/16/19 06/10/19 06/10/19 Metoprolol Xl [Metoprolol 50 mg PO QDAY 04/16/19 06/10/19 06/10/19 SUCCINATE ER TAB] Topiramate [Topamax] 200 mg PO QDAY 04/16/19 06/10/19 06/10/19 Trazodone HCl 150 mg PO QDAY 04/16/19 06/10/19 06/10/19 diphenhydrAMINE [Benadryl CAP] 50 mg PO QDAY 04/16/19 06/10/19 06/10/19 hydroCHLOROthiazide [HCTZ] 25 mg PO QDAY 04/16/19 06/10/19 06/10/19 Previous Rx's Medication Instructions Recorded Last Taken Type Dicyclomine [Bentyl] 10 mg PO QID PRN #20 capsule 04/26/19 06/10/19 Rx Potassium Chloride [K-Dur] 10 meq PO QDAY #7 tablet 05/01/19 06/10/19 Rx clonazePAM [KlonoPIN] 1 mg PO DAILY #10 tablet 05/01/19 06/10/19 Rx Acetaminophen [Acetaminophen TAB] 1,000 mg PO Q6HR PRN #60 tablet 06/01/19 06/10/19 Rx HYDROcodone/APAP 5-325 [[place] 1 each PO Q6HR PRN #12 tablet 06/01/19 06/10/19 Rx 5-325 mg TAB] Acetaminophen [Acetaminophen 8 650 mg PO Q8H PRN #20 tablet.er 07/30/19 Unknown Rx Hour] Cyclobenzaprine [Flexeril] 10 mg PO QHS PRN #10 tablet 07/30/19 Unknown Rx Allergies Allergy/AdvReac Type Severity Reaction Status Date / Time aspirin Allergy Unknown Verified 04/16/19 11:58 butorphanol tartrate Allergy Seizure Verified 01/20/18 07:51 [From Stadol] latex Allergy Hives Verified 01/20/18 07:51 NSAIDS (Non-Steroidal Allergy Unknown Verified 04/16/19 11:58 Anti-Inflamma ED Review of Systems ROS: Stated complaint: LOWER BACK LT LEG PAIN Other details as noted in HPI Comment: All other systems reviewed and negative Constitutional: denies: fever, malaise Respiratory: denies: cough, shortness of breath Cardiovascular: denies: chest pain Gastrointestinal: denies: abdominal pain, nausea, vomiting Musculoskeletal: back pain Neurological: denies: headache, weakness, numbness, paresthesias ED Past Medical Hx - Past Medical History Previous Medical History?: Yes Hx Hypertension: Yes Hx CVA: Yes (TIA) Hx Heart Attack/AMI: No Hx Congestive Heart Failure: No Hx Diabetes: Yes Hx Deep Vein Thrombosis: No Hx Pulmonary Embolism: No Hx Liver Disease: No Hx Renal Disease: Yes (stage 3) Hx Sickle Cell Disease: No Hx Arthritis: Yes (knees and back) Hx Headaches / Migraines: Yes Hx Seizures: Yes Hx Kidney Stones: Yes Hx Psychiatric Treatment: Yes (Bipolar, Panic Attacks, Anxiety, MDD) Hx Asthma: Yes Hx COPD: No Hx Tuberculosis: No Hx Dementia: No Hx HIV: No Additional medical history: lupus, Gastroparesis, Neuropathy,. high cholesterol, Endometriosis,. bipolar, Fibromylagia, hypothyroidism. anxiety PANIC ATTACK, carpal tunnel syndrome - Surgical History Past Surgical History?: Yes Hx Coronary Stent: No Hx Open Heart Surgery: No Hx Internal Defibrillator: No Hx Cholecystectomy: No Hx Appendectomy: No Hx Breast Surgery: No Additional Surgical History: "rectal repair" after vaginal delivery. lump removed from right arm and right breast - Family History Family history: hypertension - Social History Smoking Status: Never Smoker Substance Use Type: None - Medications Home Medications: Home Medications Medication Instructions Recorded Confirmed Last Taken Type Linaclotide [Linzess] 290 mcg PO DAILY 04/07/19 06/10/19 06/10/19 History Liothyronine Sodium [Cytomel] 5 mcg PO DAILY 04/07/19 06/10/19 06/10/19 History Lurasidone HCl [Latuda] 120 mg PO QDAY 04/07/19 06/10/19 06/10/19 History Meclizine [Antivert] 25 mg PO TID PRN 04/07/19 06/10/19 06/10/19 History Metoprolol [Lopressor TAB] 50 mg PO DAILY 04/07/19 06/10/19 06/10/19 History Topiramate [Qudexy Xr] 1 tab PO DAILY 04/07/19 06/10/19 06/10/19 History clonazePAM [Klonopin] 1 mg PO DAILY 04/07/19 06/10/19 06/10/19 History Fluticasone/Salmeterol [Advair 1 puff IH BID 04/16/19 06/10/19 06/10/19 History Diskus 250-50 mcg] Levothyroxine [Synthroid] 300 mcg PO QDAY 04/16/19 06/10/19 06/10/19 History Losartan [Cozaar] 100 mg PO QDAY 04/16/19 06/10/19 06/10/19 History Lurasidone HCl [Latuda] 120 mg PO QDAY 04/16/19 06/10/19 06/10/19 History Meclizine [Antivert] 25 mg PO TID PRN 04/16/19 06/10/19 06/10/19 History Metoprolol Xl [Metoprolol 50 mg PO QDAY 04/16/19 06/10/19 06/10/19 History SUCCINATE ER TAB] Topiramate [Topamax] 200 mg PO QDAY 04/16/19 06/10/19 06/10/19 History Trazodone HCl 150 mg PO QDAY 04/16/19 06/10/19 06/10/19 History diphenhydrAMINE [Benadryl CAP] 50 mg PO QDAY 04/16/19 06/10/19 06/10/19 History hydroCHLOROthiazide [HCTZ] 25 mg PO QDAY 04/16/19 06/10/19 06/10/19 History Dicyclomine [Bentyl] 10 mg PO QID PRN #20 capsule 04/26/19 06/10/19 06/10/19 Rx Potassium Chloride [K-Dur] 10 meq PO QDAY #7 tablet 05/01/19 06/10/19 06/10/19 Rx clonazePAM [KlonoPIN] 1 mg PO DAILY #10 tablet 05/01/19 06/10/19 06/10/19 Rx Acetaminophen [Acetaminophen TAB] 1,000 mg PO Q6HR PRN #60 tablet 06/01/19 06/10/19 06/10/19 Rx HYDROcodone/APAP 5-325 [[place] 1 each PO Q6HR PRN #12 tablet 06/01/19 06/10/19 06/10/19 Rx 5-325 mg TAB] Acetaminophen [Acetaminophen 8 650 mg PO Q8H PRN #20 tablet.er 07/30/19 Unknown Rx Hour] Cyclobenzaprine [Flexeril] 10 mg PO QHS PRN #10 tablet 07/30/19 Unknown Rx ED Physical Exam - General Limitations: No Limitations General appearance: alert, in no apparent distress - Head Head exam: Present: atraumatic, normocephalic - Eye Eye exam: Present: normal appearance - ENT ENT exam: Present: mucous membranes moist - Neck Neck exam: Present: normal inspection, full ROM - Respiratory Respiratory exam: Present: normal lung sounds bilaterally. Absent: respiratory distress, wheezes, rales, rhonchi - Cardiovascular Cardiovascular Exam: Present: regular rate, normal rhythm, normal heart sounds. Absent: systolic murmur, diastolic murmur, rubs, gallop - GI/Abdominal GI/Abdominal exam: Present: soft, normal bowel sounds. Absent: distended, tenderness, guarding, rebound - Extremities Exam Extremities exam: Present: normal inspection - Back Exam Back exam: Present: full ROM, muscle spasm, paraspinal tenderness. Absent: tenderness, CVA tenderness (R), CVA tenderness (L), vertebral tenderness - Neurological Exam Neurological exam: Present: alert, oriented X3, normal gait - Psychiatric Psychiatric exam: Present: normal affect, normal mood - Skin Skin exam: Present: warm, dry, intact, normal color. Absent: rash ED Course Vital Signs 08/12/19 08/12/19 20:41 20:45 Temperature 98.0 F 98 F Pulse Rate 111 H 117 H Respiratory 18 18 Rate Blood Pressure 119/80 119/80 O2 Sat by Pulse 96 95 Oximetry ED Medical Decision Making - Medical Decision Making Mrs. 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 No red flags such as fever, weight loss, advanced age, direct trauma. She is neurologically intact. Given Percocet and Flexeril in the emergency department. Instructed to follow up with her pain management physician tomorrow. Critical care attestation.: If time is entered above; I have spent that time in minutes in the direct care of this critically ill patient, excluding procedure time. ED Disposition Clinical Impression: Acute back pain, Low back strain Disposition: TO HOME OR SELFCARE Is pt being admited?: No Does the pt Need Aspirin: No Condition: Stable Instructions: Low Back Strain (ED), Acute Low Back Pain (ED) Referrals: PRIMARY CARE, [Primary Care Provider] - [facility]
== END 2019-08-12 23:58 | disposition home or self-care (01) ==
LOC: ED 20:32
DX: S39.012A Strain of muscle, fascia and tendon of lower back, initial encounter (principal); E11.40 Type 2 diabetes mellitus with diabetic neuropathy, unspecified; I10 Essential (primary) hypertension; M79.7 Fibromyalgia; M32.9 Systemic lupus erythematosus, unspecified; J45.909 Unspecified asthma, uncomplicated; F41.9 Anxiety disorder, unspecified; F32.9 Major depressive disorder, single episode, unspecified; E78.5 Hyperlipidemia, unspecified; E03.9 Hypothyroidism, unspecified; Z86.73 Personal history of transient ischemic attack (TIA), and cerebral infarction without residual deficits; Z88.6 Allergy status to analgesic agent; Z91.040 Latex allergy status; Z88.8 Allergy status to other drugs, medicaments and biological substances; Z79.899 Other long term (current) drug therapy; Z88.7 Allergy status to serum and vaccine; X58.XXXA Exposure to other specified factors, initial encounter; Y93.89 Activity, other specified; Y92.89 Other specified places as the place of occurrence of the external cause; Y99.8 Other external cause status
CPT/HCPCS: 99282

== ENCOUNTER 2019-10-02 21:20 | Emergency (ER) | payer MEDICARE ==
--- NOTE | 2019-10-03 02:39 | XRay Report ---
CHEST 1 VIEW, 10/03/2019 2:15 AM CLINICAL INFORMATION/INDICATION: Chest pain COMPARISON: Chest radiograph, 04/29/2019 FINDINGS: SUPPORT DEVICES: None. HEART: The cardiac silhouette is normal in size. LUNGS/PLEURA: The lungs are clear of focal airspace disease or significant pleural effusion. ADDITIONAL FINDINGS: No additional acute findings. IMPRESSION: 1. No evidence of acute cardiopulmonary process. Signer Name: Steph Valadez MD Signed: 10/03/2019 2:35 AM Workstation Name: [employer]
[2019-10-03 02:49] LABS: Hematocrit 32.4 % (30.3-42.9); Hemoglobin 10.7 gm/dl (10.1-14.3); Mean Corpuscular HGB Conc 33 % (30-34); Mean Corpuscular Volume 85 fl (79-97); Platelet Count 433 K/mm3 (140-440); Red Cell Distribution Width 13.8 % (13.2-15.2)
--- NOTE | 2019-10-03 03:01 | Emergency Department Report ---
<LOUISA SANTILLAN - Last Filed: 10/03/19 07:59> ED Chest Pain HPI - General Chief Complaint: Chest Pain Stated Complaint: CHEST PAIN Time Seen by Provider: 10/03/19 02:51 - Related Data Home Medications Medication Instructions Recorded Confirmed Last Taken Linaclotide [Linzess] 290 mcg PO DAILY 04/07/19 06/10/19 06/10/19 Liothyronine Sodium [Cytomel] 5 mcg PO DAILY 04/07/19 06/10/19 06/10/19 Lurasidone HCl [Latuda] 120 mg PO QDAY 04/07/19 06/10/19 06/10/19 Meclizine [Antivert] 25 mg PO TID PRN 04/07/19 06/10/19 06/10/19 Metoprolol [Lopressor TAB] 50 mg PO DAILY 04/07/19 06/10/19 06/10/19 Topiramate [Qudexy Xr] 1 tab PO DAILY 04/07/19 06/10/19 06/10/19 clonazePAM [Klonopin] 1 mg PO DAILY 04/07/19 06/10/19 06/10/19 Fluticasone/Salmeterol [Advair 1 puff IH BID 04/16/19 06/10/19 06/10/19 Diskus 250-50 mcg] Levothyroxine [Synthroid] 300 mcg PO QDAY 04/16/19 06/10/19 06/10/19 Losartan [Cozaar] 100 mg PO QDAY 04/16/19 06/10/19 06/10/19 Lurasidone HCl [Latuda] 120 mg PO QDAY 04/16/19 06/10/19 06/10/19 Meclizine [Antivert] 25 mg PO TID PRN 04/16/19 06/10/19 06/10/19 Metoprolol Xl [Metoprolol 50 mg PO QDAY 04/16/19 06/10/19 06/10/19 SUCCINATE ER TAB] Topiramate [Topamax] 200 mg PO QDAY 04/16/19 06/10/19 06/10/19 Trazodone HCl 150 mg PO QDAY 04/16/19 06/10/19 06/10/19 diphenhydrAMINE [Benadryl CAP] 50 mg PO QDAY 04/16/19 06/10/19 06/10/19 hydroCHLOROthiazide [HCTZ] 25 mg PO QDAY 04/16/19 06/10/19 06/10/19 Previous Rx's Medication Instructions Recorded Last Taken Type Dicyclomine [Bentyl] 10 mg PO QID PRN #20 capsule 04/26/19 06/10/19 Rx Potassium Chloride [K-Dur] 10 meq PO QDAY #7 tablet 05/01/19 06/10/19 Rx clonazePAM [KlonoPIN] 1 mg PO DAILY #10 tablet 05/01/19 06/10/19 Rx Acetaminophen [Acetaminophen TAB] 1,000 mg PO Q6HR PRN #60 tablet 06/01/19 06/10/19 Rx HYDROcodone/APAP 5-325 [Glover 1 each PO Q6HR PRN #12 tablet 06/01/19 06/10/19 Rx 5-325 mg TAB] Acetaminophen [Acetaminophen 8 650 mg PO Q8H PRN #20 tablet.er 07/30/19 Unknown Rx Hour] Cyclobenzaprine [Flexeril] 10 mg PO QHS PRN #10 tablet 07/30/19 Unknown Rx Allergies Allergy/AdvReac Type Severity Reaction Status Date / Time aspirin Allergy Unknown Verified 04/16/19 11:58 butorphanol tartrate Allergy Seizure Verified 01/20/18 07:51 [From Stadol] latex Allergy Hives Verified 01/20/18 07:51 NSAIDS (Non-Steroidal Allergy Unknown Verified 04/16/19 11:58 Anti-Inflamma ED Past Medical Hx - Medications Home Medications: Home Medications Medication Instructions Recorded Confirmed Last Taken Type Linaclotide [Linzess] 290 mcg PO DAILY 04/07/19 06/10/19 06/10/19 History Liothyronine Sodium [Cytomel] 5 mcg PO DAILY 04/07/19 06/10/19 06/10/19 History Lurasidone HCl [Latuda] 120 mg PO QDAY 04/07/19 06/10/19 06/10/19 History Meclizine [Antivert] 25 mg PO TID PRN 04/07/19 06/10/19 06/10/19 History Metoprolol [Lopressor TAB] 50 mg PO DAILY 04/07/19 06/10/19 06/10/19 History Topiramate [Qudexy Xr] 1 tab PO DAILY 04/07/19 06/10/19 06/10/19 History clonazePAM [Klonopin] 1 mg PO DAILY 04/07/19 06/10/19 06/10/19 History Fluticasone/Salmeterol [Advair 1 puff IH BID 04/16/19 06/10/19 06/10/19 History Diskus 250-50 mcg] Levothyroxine [Synthroid] 300 mcg PO QDAY 04/16/19 06/10/19 06/10/19 History Losartan [Cozaar] 100 mg PO QDAY 04/16/19 06/10/19 06/10/19 History Lurasidone HCl [Latuda] 120 mg PO QDAY 04/16/19 06/10/19 06/10/19 History Meclizine [Antivert] 25 mg PO TID PRN 04/16/19 06/10/19 06/10/19 History Metoprolol Xl [Metoprolol 50 mg PO QDAY 04/16/19 06/10/19 06/10/19 History SUCCINATE ER TAB] Topiramate [Topamax] 200 mg PO QDAY 04/16/19 06/10/19 06/10/19 History Trazodone HCl 150 mg PO QDAY 04/16/19 06/10/19 06/10/19 History diphenhydrAMINE [Benadryl CAP] 50 mg PO QDAY 04/16/19 06/10/19 06/10/19 History hydroCHLOROthiazide [HCTZ] 25 mg PO QDAY 04/16/19 06/10/19 06/10/19 History Dicyclomine [Bentyl] 10 mg PO QID PRN #20 capsule 04/26/19 06/10/19 06/10/19 Rx Potassium Chloride [K-Dur] 10 meq PO QDAY #7 tablet 05/01/19 06/10/19 06/10/19 Rx clonazePAM [KlonoPIN] 1 mg PO DAILY #10 tablet 05/01/19 06/10/19 06/10/19 Rx Acetaminophen [Acetaminophen TAB] 1,000 mg PO Q6HR PRN #60 tablet 06/01/19 06/10/19 06/10/19 Rx HYDROcodone/APAP 5-325 [Glover 1 each PO Q6HR PRN #12 tablet 06/01/19 06/10/19 06/10/19 Rx 5-325 mg TAB] Acetaminophen [Acetaminophen 8 650 mg PO Q8H PRN #20 tablet.er 07/30/19 Unknown Rx Hour] Cyclobenzaprine [Flexeril] 10 mg PO QHS PRN #10 tablet 07/30/19 Unknown Rx ED Course - Reevaluation(s) Reevaluation #1: 10/03/19 07:59 CT scan of the chest is negative for acute disease. Troponin negative 2. Tachycardia resolved. Patient resting comfortably and in no acute distress. Upon review of cardiology consultation from 2018, "the patient has had extensive prior ischemic cardiac workup including a negative PET scan, negative thallium stress test all within the past 1-2 years. An echocardiogram just last year demonstrated normal left ventricular systolic function with ejection fraction of 50-55%. Recommendations: The patient's chest pain appears to be historically musculoskeletal. In addition to workup for pulmonary embolism, we'll recommend medical management for Musca skeletal chest pain. " The patient does not appear to have an emergent medical condition at this time, her EKG is unchanged 2. She can take [id number] Tylenol as needed for her chest wall pain, and follow-up with an outpatient primary care doctor and/or manager traffic. ED Medical Decision Making - Lab Data Result diagrams: 10/03/19 02:29 10/03/19 02:29 Vital Signs 10/02/19 10/03/19 10/03/19 21:31 02:22 02:23 Temperature 98.3 F Pulse Rate 112 H 103 H Respiratory 20 16 18 Rate Blood Pressure 121/80 O2 Sat by Pulse 96 98 99 Oximetry 10/03/19 10/03/19 10/03/19 02:30 02:45 03:00 Temperature Pulse Rate Respiratory Rate Blood Pressure 136/90 113/72 111/64 O2 Sat by Pulse 100 100 100 Oximetry 10/03/19 10/03/19 10/03/19 03:30 04:00 04:30 Temperature Pulse Rate 96 H 95 H 101 H Respiratory 19 17 20 Rate Blood Pressure 108/63 104/65 122/65 O2 Sat by Pulse 98 100 99 Oximetry 10/03/19 10/03/19 10/03/19 05:01 05:31 06:11 Temperature Pulse Rate 98 H 96 H 99 H Respiratory 19 18 19 Rate Blood Pressure 110/63 110/63 118/74 O2 Sat by Pulse 99 98 99 Oximetry 10/03/19 06:30 Temperature Pulse Rate 97 H Respiratory 18 Rate Blood Pressure 116/66 O2 Sat by Pulse 98 Oximetry Lab Results 10/03/19 10/03/19 10/03/19 Range/Units 02:29 02:29 03:06 WBC 9.6 (4.5-11.0) K/mm3 RBC 3.80 (3.65-5.03) M/mm3 Hgb 10.7 (10.1-14.3) gm/dl Hct 32.4 (30.3-42.9) % MCV 85 (79-97) fl MCH 28 (28-32) pg MCHC 33 (30-34) % RDW 13.8 (13.2-15.2) % Plt Count 433 (140-440) K/mm3 Lymph # Lab Technician Add Manual Diff Complete Total Counted 100 Seg Neuts % (Manual) 41.0 (40.0-70.0) % Band Neutrophils % 0 % Lymphocytes % (Manual) 55.0 H (13.4-35.0) % Reactive Lymphs % (Man) 0 % Monocytes % (Manual) 3.0 (0.0-7.3) % Eosinophils % (Manual) 1.0 (0.0-4.3) % Basophils % (Manual) 0 (0.0-1.8) % Metamyelocytes % 0 % Myelocytes % 0 % Promyelocytes % 0 % Blast Cells % 0 % Nucleated RBC % Not Reportable Seg Neutrophils # Man 3.9 (1.8-7.7) K/mm3 Band Neutrophils # 0.0 K/mm3 Lymphocytes # (Manual) 5.3 (1.2-5.4) K/mm3 Abs React Lymphs (Man) 0.0 K/mm3 Monocytes # (Manual) 0.3 (0.0-0.8) K/mm3 Eosinophils # (Manual) 0.1 (0.0-0.4) K/mm3 Basophils # (Manual) 0.0 (0.0-0.1) K/mm3 Metamyelocytes # 0.0 K/mm3 Myelocytes # 0.0 K/mm3 Promyelocytes # 0.0 K/mm3 Blast Cells # 0.0 K/mm3 WBC Morphology Not Reportable Hypersegmented Neuts Not Reportable Hyposegmented Neuts Not Reportable Hypogranular Neuts Not Reportable Smudge Cells Not Reportable Toxic Granulation Not Reportable Toxic Vacuolation Not Reportable Dohle Bodies Not Reportable Pelger-Huet Anomaly Not Reportable Nay Rods Not Reportable Platelet Estimate Consistent w auto Clumped Platelets Not Reportable Plt Clumps, EDTA Not Reportable Large Platelets Not Reportable Giant Platelets Not Reportable Platelet Satelliting Not Reportable Plt Morphology Comment Not Reportable RBC Morphology Not Reportable Dimorphic RBCs Not Reportable Polychromasia Not Reportable Hypochromasia Not Reportable Poikilocytosis Not Reportable Anisocytosis Not Reportable Microcytosis Not Reportable Macrocytosis Not Reportable Spherocytes Not Reportable Pappenheimer Bodies Not Reportable Sickle Cells Not Reportable Target Cells Not Reportable Tear Drop Cells Not Reportable Ovalocytes Not Reportable Helmet Cells Not Reportable Villatoro-Manderson Bodies Not Reportable Elida Rings Not Reportable Renea Cells Not Reportable Bite Cells Not Reportable Crenated Cell Not Reportable Elliptocytes Not Reportable Acanthocytes (Spur) Not Reportable Rouleaux Not Reportable Hemoglobin C Crystals Not Reportable Schistocytes Not Reportable Malaria parasites Not Reportable Yash Bodies Not Reportable Hem Pathologist Commnt No D-Dimer 490.86 H (0-234) ng/mlDDU Sodium 138 (137-145) mmol/L Potassium 3.3 L (3.6-5.0) mmol/L Chloride 99.0 (98-107) mmol/L Carbon Dioxide 25 (22-30) mmol/L Anion Gap 17 mmol/L BUN 7 (7-17) mg/dL Creatinine 0.9 (0.7-1.2) mg/dL Estimated GFR > 60 ml/min BUN/Creatinine Ratio 8 % Glucose 165 H (65-100) mg/dL Calcium 9.4 (8.4-10.2) mg/dL Troponin T < 0.010 (0.00-0.029) ng/mL Lipase (13-60) units/L 10/03/19 10/03/19 Range/Units 03:06 05:28 WBC (4.5-11.0) K/mm3 RBC (3.65-5.03) M/mm3 Hgb (10.1-14.3) gm/dl Hct (30.3-42.9) % MCV (79-97) fl MCH (28-32) pg MCHC (30-34) % RDW (13.2-15.2) % Plt Count (140-440) K/mm3 Lymph # Add Manual Diff Total Counted Seg Neuts % (Manual) (40.0-70.0) % Band Neutrophils % % Lymphocytes % (Manual) (13.4-35.0) % Reactive Lymphs % (Man) % Monocytes % (Manual) (0.0-7.3) % Eosinophils % (Manual) (0.0-4.3) % Basophils % (Manual) (0.0-1.8) % Metamyelocytes % % Myelocytes % % Promyelocytes % % Blast Cells % % Nucleated RBC % Seg Neutrophils # Man (1.8-7.7) K/mm3 Band Neutrophils # K/mm3 Lymphocytes # (Manual) (1.2-5.4) K/mm3 Abs React Lymphs (Man) K/mm3 Monocytes # (Manual) (0.0-0.8) K/mm3 Eosinophils # (Manual) (0.0-0.4) K/mm3 Basophils # (Manual) (0.0-0.1) K/mm3 Metamyelocytes # K/mm3 Myelocytes # K/mm3 Promyelocytes # K/mm3 Blast Cells # K/mm3 WBC Morphology Hypersegmented Neuts Hyposegmented Neuts Hypogranular Neuts Smudge Cells Toxic Granulation Toxic Vacuolation Dohle Bodies Pelger-Huet Anomaly Nay Rods Platelet Estimate Clumped Platelets Plt Clumps, EDTA Large Platelets Giant Platelets Platelet Satelliting Plt Morphology Comment RBC Morphology Dimorphic RBCs Polychromasia Hypochromasia Poikilocytosis Anisocytosis Microcytosis Macrocytosis Spherocytes Pappenheimer Bodies Sickle Cells Target Cells Tear Drop Cells Ovalocytes Helmet Cells Villatoro-Manderson Bodies Elida Rings Renea Cells Bite Cells Crenated Cell Elliptocytes Acanthocytes (Spur) Rouleaux Hemoglobin C Crystals Schistocytes Malaria parasites Yash Bodies Hem Pathologist Commnt D-Dimer (0-234) ng/mlDDU Sodium (137-145) mmol/L Potassium (3.6-5.0) mmol/L Chloride (98-107) mmol/L Carbon Dioxide (22-30) mmol/L Anion Gap mmol/L BUN (7-17) mg/dL Creatinine (0.7-1.2) mg/dL Estimated GFR ml/min BUN/Creatinine Ratio % Glucose (65-100) mg/dL Calcium (8.4-10.2) mg/dL Troponin T < 0.010 (0.00-0.029) ng/mL Lipase 19 (13-60) units/L - Radiology Data Radiology results: report reviewed, image reviewed ED Disposition Clinical Impression: Chest pain, History of chest pain Disposition: TO HOME OR SELFCARE Is pt being admited?: No Does the pt Need Aspirin: No Condition: Stable Additional Instructions: Do not take metformin medication for the next 2 days, if patient takes his medication. Rest, avoid heavy lifting, and avoid strenuous physical activities. Avoid consumption of heavy and/or spicy foods and alcohol. Patient may take Tylenol [id number], 650 mg by mouth, every 4-6 hours as needed for pain, and Pepcid [id number], 20 mg by mouth, every 12-24 hours. Recommend follow-up with an outpatient primary care doctor or manager traffic within the next 5-7 days. Return to emergency room right away with projectile vomiting, change in mental status, confusion, inability to tolerate liquid feeds, new, worsened or different symptoms not present on the initial emergency room evaluation. Referrals: [facility] MD [place] [Referring] - 3-5 Days RACHEL COMER MD [Staff Physician] - 3-[address] [facility] [Provider Group] - 3-5 Days [facility] [Provider Group] - 3-5 Days [facility] [Provider Group] - 3-5 Days <TONJA VARGAS - Last Filed: 10/05/19 09:10> ED Chest Pain HPI - General Source: patient Mode of arrival: Ambulatory Limitations: No Limitations - History of Present Illness Initial Comments: Patient is 44 years old female with history of hypertension, diabetes, arthritis, fibromyalgia and bipolar disorder. Patient presented to the ER complaining of chest pain substernal on and off for the last few days, sharp with no radiation. Patient denied any fever or chills. No shortness of breath. MD Complaint: chest pain Heart Score - HEART Score History: Slightly suspicious EKG: Non-specific Age: < 45 Risk factors: 1-2 risk factors Troponin: < normal limit HEART Score: 2 - Critical Actions Critical Actions: 0-3 pts:0.9-1.7%risk of adverse cardiac event.Candidate for discharge ED Review of Systems ROS: Stated complaint: CHEST PAIN Other details as noted in HPI Comment: All other systems reviewed and negative Constitutional: denies: chills, fever Respiratory: denies: cough, shortness of breath, SOB with exertion Cardiovascular: chest pain. denies: palpitations Gastrointestinal: denies: abdominal pain, nausea, vomiting, diarrhea, constipation, hematemesis, melena, hematochezia Musculoskeletal: denies: back pain Neurological: denies: headache, weakness, numbness, paresthesias, confusion, abnormal gait ED Past Medical Hx - Past Medical History Hx Hypertension: Yes Hx CVA: Yes (TIA) Hx Heart Attack/AMI: No Hx Congestive Heart Failure: No Hx Diabetes: Yes Hx Deep Vein Thrombosis: No Hx Pulmonary Embolism: No Hx Liver Disease: No Hx Renal Disease: Yes (stage 3) Hx Sickle Cell Disease: No Hx Arthritis: Yes (knees and back) Hx Headaches / Migraines: Yes Hx Seizures: Yes Hx Kidney Stones: Yes Hx Psychiatric Treatment: Yes (Bipolar, Panic Attacks, Anxiety, MDD) Hx Asthma: Yes Hx COPD: No Hx Tuberculosis: No Hx Dementia: No Hx HIV: No Additional medical history: lupus, Gastroparesis, Neuropathy,. high cholesterol, Endometriosis,. bipolar, Fibromylagia, hypothyroidism. anxiety PANIC ATTACK, carpal tunnel syndrome - Surgical History Hx Coronary Stent: No Hx Open Heart Surgery: No Hx Internal Defibrillator: No Hx Cholecystectomy: No Hx Appendectomy: No Hx Breast Surgery: No Additional Surgical History: "rectal repair" after vaginal delivery. lump re moved from right arm and right breast - Social History Smoking Status: Never Smoker Substance Use Type: None ED Physical Exam - General Limitations: No Limitations General appearance: alert, in no apparent distress - Head Head exam: Present: atraumatic, normocephalic, normal inspection - Eye Eye exam: Present: normal appearance - ENT ENT exam: Present: normal exam, normal orophraynx, mucous membranes moist - Neck Neck exam: Present: normal inspection, full ROM. Absent: tenderness, me ningismus, lymphadenopathy, thyromegaly - Respiratory Respiratory exam: Present: normal lung sounds bilaterally - Cardiovascular Cardiovascular Exam: Present: regular rate, normal rhythm, normal heart sounds - GI/Abdominal GI/Abdominal exam: Present: soft, normal bowel sounds. Absent: distended, tenderness, guarding, rebound, rigid, organomegaly, mass, bruit, pulsatile mass, hernia - Extremities Exam Extremities exam: Present: normal inspection, full ROM, normal capillary refill. Absent: tenderness, pedal edema, joint swelling, calf tenderness - Back Exam Back exam: Present: normal inspection, full ROM. Absent: CVA tenderness (R), CVA tenderness (L), muscle spasm, paraspinal tenderness, vertebral tenderness - Neurological Exam Neurological exam: Present: alert, oriented X3, CN II-XII intact - Psychiatric Psychiatric exam: Present: normal mood - Skin Skin exam: Present: warm, intact, normal color ED Course Vital Signs 10/02/19 10/03/19 10/03/19 21:31 02:22 02:23 Temperature 98.3 F Pulse Rate 112 H 103 H Respiratory 20 16 18 Rate Blood Pressure 121/80 O2 Sat by Pulse 96 98 99 Oximetry 10/03/19 10/03/19 10/03/19 02:30 02:45 03:00 Temperature Pulse Rate Respiratory Rate Blood Pressure 136/90 113/72 111/64 O2 Sat by Pulse 100 100 100 Oximetry 10/03/19 10/03/19 10/03/19 03:30 04:00 04:30 Temperature Pulse Rate 96 H 95 H 101 H Respiratory 19 17 20 Rate Blood Pressure 108/63 104/65 122/65 O2 Sat by Pulse 98 100 99 Oximetry 10/03/19 10/03/19 10/03/19 05:01 05:31 06:11 Temperature Pulse Rate 98 H 96 H 99 H Respiratory 19 18 19 Rate Blood Pressure 110/63 110/63 118/74 O2 Sat by Pulse 99 98 99 Oximetry 10/03/19 06:30 Temperature Pulse Rate 97 H Respiratory 18 Rate Blood Pressure 116/66 O2 Sat by Pulse 98 Oximetry ÁNGEL score - Ángel Score Age > 65: (0) No Aspirin use within the Past 7 Days: (0) No 3 or more CAD Risk Factors: (0) No 2 or more Angina events in past 24 hrs: (0) No Known CAD with more than 50% Stenosis: (0) No Elevated Cardiac Markers: (0) No ST Deviation Greater than 0.5mm: (0) No ÁNGEL Score: 0 ED Medical Decision Making - Lab Data Result diagrams: 10/03/19 02:29 10/03/19 02:29 - EKG Data -: EKG Interpreted by Me EKG shows normal: sinus rhythm Rate: tachycardia - EKG Data Interpretation: no acute changes Critical care attestation.: If time is entered above; I have spent that time in minutes in the direct care of this critically ill patient, excluding procedure time.
[2019-10-03 03:02] LABS: BUN/Creatinine Ratio 8; Blood Urea Nitrogen 7 mg/dL (7-17); Calcium 9.4 mg/dL (8.4-10.2); Hemolysis Index 5
[2019-10-03] MEDS: ACETAMINOPHEN 500 MG TAB PO ONE (03:09)
[2019-10-03 04:49] LABS: Basophils % (Manual) 0 % (0.0-1.8); Platelet Estimate Consistent w Auto; Total Cells Counted 100
[2019-10-03] MEDS: ONDANSETRON 4 MG/2 ML INJ IV ONE (05:24)
[2019-10-03] MEDS: MORPHINE 4 MG/1 ML INJ IV ONE (05:24)
--- NOTE | 2019-10-03 06:08 | Cat Scan Report ---
CTA CHEST WITH IV CONTRAST INDICATION: Chest pain. Shortness of breath. TECHNIQUE: Axial CT images were obtained through the chest after injection of IV contrast. Coronal oblique 2-D reconstruction images were produced. 3 plane MIP reconstruction images were produced at an [employer] workstation. All CTs at this facility utilize dose reduction techniques including automated expos ure control, iterative reconstruction and weight based dosing when appropriate to reduce patient radi ation dose to as low as reasonable achievable. COMPARISON: CTA of the chest, 04/09/2019 FINDINGS: No filling defects are visualized within the central or segmental pulmonary arteries to suggest pulmo nary embolism. The heart is normal in size. Evaluation of the lung parenchyma demonstrates no evidenc e of focal airspace disease or pleural effusion. Limited imaging of the upper abdomen demonstrates no evidence of acute abnormality Evaluation of bony structures demonstrates no acute bony abnormality. IMPRESSION: 1. No evidence of pulmonary embolism or acute parenchymal process. Signer Name: Steph Valadez MD Signed: 10/03/2019 6:04 AM Workstation Name: [id number]
[2019-10-03 06:58] VITALS: BP 116/66
[2019-10-03] MEDS ORDERED: POTASSIUM CHLORIDE ER 20 MEQ TAB PO ONE (08:02)
[2019-10-03] MEDS ORDERED: MAGNESIUM SULFATE 2 GM/50 ML BAG IV ONE (08:10)
== END 2019-10-03 08:43 | disposition home or self-care (01) ==
LOC: ED 21:20
DX: R07.89 Other chest pain (principal); I10 Essential (primary) hypertension; E11.9 Type 2 diabetes mellitus without complications; G40.909 Epilepsy, unspecified, not intractable, without status epilepticus; G43.909 Migraine, unspecified, not intractable, without status migrainosus; J45.909 Unspecified asthma, uncomplicated; Z98.890 Other specified postprocedural states; Z86.73 Personal history of transient ischemic attack (TIA), and cerebral infarction without residual deficits; Z88.6 Allergy status to analgesic agent; Z91.040 Latex allergy status; Z88.8 Allergy status to other drugs, medicaments and biological substances
CPT/HCPCS: 36415; 71045; 71275; 80048; 83690; 83735; 84484; 85007; 85025; 85379; 93005; 93010; 96374; 96375; 99285; J2270; J2405; Q9967

== ENCOUNTER 2019-12-02 04:55 | Emergency (ER) | payer MEDICARE ==
[2019-12-02] MEDS ORDERED: ASPIRIN 325 MG TAB PO ONE (04:59)
--- NOTE | 2019-12-02 05:32 | XRay Report ---
CHEST 1 VIEW INDICATION / CLINICAL INFORMATION: Chest Pain. COMPARISON: 10/03/2019 FINDINGS: SUPPORT DEVICES: None. HEART / MEDIASTINUM: No significant abnormality. LUNGS / PLEURA: No significant pulmonary or pleural abnormality. No pneumothorax. ADDITIONAL FINDINGS: No significant additional findings. IMPRESSION: 1. No acute findings. No interval change. Signer Name: Jovanna Fountain MD Signed: 12/02/2019 5:28 AM Workstation Name: [id number]
[2019-12-02 05:40] LABS: Hematocrit 34.9 % (30.3-42.9); Hemoglobin 11.3 gm/dl (10.1-14.3); Mean Corpuscular HGB Conc 32 % (30-34); Mean Corpuscular Volume 81 fl (79-97); Platelet Count 403 K/mm3 (140-440); Red Blood Count 4.29 M/mm3 (3.65-5.03); Red Cell Distribution Width 13.8 % (13.2-15.2)
[2019-12-02 06:00] LABS: BUN/Creatinine Ratio 8; Blood Urea Nitrogen 6 mg/dL (7-17); Calcium 9.3 mg/dL (8.4-10.2); Hemolysis Index 16
[2019-12-02 06:48] LABS: Basophils % (Manual) 0 % (0.0-1.8); Total Cells Counted 100
[2019-12-02 06:49] LABS: Eosinophils % (Manual) 0 % (0.0-4.3); Platelet Estimate Consistent w Auto; RBC Morphology Normal
[2019-12-02] MEDS ORDERED: HYDROcodone/ACETAMINOPHEN 5-325 MG TAB PO ONE (08:59)
[2019-12-02] MEDS ORDERED: cloNIDine 0.2 MG TAB PO ONE (09:32)
--- NOTE | 2019-12-02 09:32 | Emergency Department Report ---
ED Chest Pain HPI - General Chief Complaint: Chest Pain Stated Complaint: CHEST PAIN Time Seen by Provider: 12/02/19 08:27 Source: patient Mode of arrival: Ambulatory Limitations: No Limitations - History of Present Illness Initial Comments: This is a 44-year-old female with a history of hypertension who presents the ED complaining of mid chest pain that started early this morning that woke her out of her sleep. Patient states that pain is localized to the mid chest area and is sharp in nature. Patient denies any radiation elsewhere. Patient did note that she has not taken her blood pressure medication today. MD Complaint: chest pain Severity scale (0 -10): 8 - Related Data Home Medications Medication Instructions Recorded Confirmed Last Taken Linaclotide [Linzess] 290 mcg PO DAILY 04/07/19 06/10/19 06/10/19 Liothyronine Sodium [Cytomel] 5 mcg PO DAILY 04/07/19 06/10/19 06/10/19 Lurasidone HCl [Latuda] 120 mg PO QDAY 04/07/19 06/10/19 06/10/19 Meclizine [Antivert] 25 mg PO TID PRN 04/07/19 06/10/19 06/10/19 Metoprolol [Lopressor TAB] 50 mg PO DAILY 04/07/19 06/10/19 06/10/19 Topiramate [Qudexy Xr] 1 tab PO DAILY 04/07/19 06/10/19 06/10/19 clonazePAM [Klonopin] 1 mg PO DAILY 04/07/19 06/10/19 06/10/19 Fluticasone/Salmeterol [Advair 1 puff IH BID 04/16/19 06/10/19 06/10/19 Diskus 250-50 mcg] Levothyroxine [Synthroid] 300 mcg PO QDAY 04/16/19 06/10/19 06/10/19 Losartan [Cozaar] 100 mg PO QDAY 04/16/19 06/10/19 06/10/19 Lurasidone HCl [Latuda] 120 mg PO QDAY 04/16/19 06/10/19 06/10/19 Meclizine [Antivert] 25 mg PO TID PRN 04/16/19 06/10/19 06/10/19 Metoprolol Xl [Metoprolol 50 mg PO QDAY 04/16/19 06/10/19 06/10/19 SUCCINATE ER TAB] Topiramate [Topamax] 200 mg PO QDAY 04/16/19 06/10/19 06/10/19 Trazodone HCl 150 mg PO QDAY 04/16/19 06/10/19 06/10/19 diphenhydrAMINE [Benadryl CAP] 50 mg PO QDAY 04/16/19 06/10/19 06/10/19 hydroCHLOROthiazide [HCTZ] 25 mg PO QDAY 04/16/19 06/10/19 06/10/19 Previous Rx's Medication Instructions Recorded Last Taken Type Dicyclomine [Bentyl] 10 mg PO QID PRN #20 capsule 04/26/19 06/10/19 Rx Potassium Chloride [K-Dur] 10 meq PO QDAY #7 tablet 05/01/19 06/10/19 Rx clonazePAM [KlonoPIN] 1 mg PO DAILY #10 tablet 05/01/19 06/10/19 Rx Acetaminophen [Acetaminophen TAB] 1,000 mg PO Q6HR PRN #60 tablet 06/01/19 06/10/19 Rx HYDROcodone/APAP 5-325 [[place] 1 each PO Q6HR PRN #12 tablet 06/01/19 06/10/19 Rx 5-325 mg TAB] Acetaminophen [Acetaminophen 8 650 mg PO Q8H PRN #20 tablet.er 12/02/19 Unknown Rx Hour] Cyclobenzaprine [Flexeril 10 MG 10 mg PO QHS PRN #10 tablet 12/02/19 Unknown Rx TAB] Allergies Allergy/AdvReac Type Severity Reaction Status Date / Time aspirin Allergy Unknown Verified 04/16/19 11:58 butorphanol tartrate Allergy Seizure Verified 01/20/18 07:51 [From Stadol] latex Allergy Hives Verified 01/20/18 07:51 NSAIDS (Non-Steroidal Allergy Unknown Verified 04/16/19 11:58 Anti-Inflamma Heart Score - HEART Score History: Slightly suspicious EKG: Normal Age: < 45 Risk factors: 1-2 risk factors Troponin: < normal limit HEART Score: 1 ED Review of Systems ROS: Stated complaint: CHEST PAIN Other details as noted in HPI Comment: All other systems reviewed and negative ED Past Medical Hx - Past Medical History Previous Medical History?: Yes Hx Hypertension: Yes Hx CVA: Yes (TIA) Hx Heart Attack/AMI: No Hx Congestive Heart Failure: No Hx Diabetes: Yes Hx Deep Vein Thrombosis: No Hx Pulmonary Embolism: No Hx Liver Disease: No Hx Renal Disease: Yes (stage 3) Hx Sickle Cell Disease: No Hx Arthritis: Yes (knees and back) Hx Headaches / Migraines: Yes Hx Seizures: Yes Hx Kidney Stones: Yes Hx Psychiatric Treatment: Yes (Bipolar, Panic Attacks, Anxiety, MDD) Hx Asthma: Yes Hx COPD: No Hx Tuberculosis: No Hx Dementia: No Hx HIV: No Additional medical history: lupus, Gastroparesis, Neuropathy,. high cholesterol, Endometriosis,. bipolar, Fibromylagia, hypothyroidism. anxiety P ANIC ATTACK, carpal tunnel syndrome - Surgical History Past Surgical History?: Yes Hx Coronary Stent: No Hx Open Heart Surgery: No Hx Internal Defibrillator: No Hx Cholecystectomy: No Hx Appendectomy: No Hx Breast Surgery: No Additional Surgical History: "rectal repair" after vaginal delivery. lump removed from right arm and right breast - Social History Smoking Status: Never Smoker Substance Use Type: None - Medications Home Medications: Home Medications Medication Instructions Recorded Confirmed Last Taken Type Linaclotide [Linzess] 290 mcg PO DAILY 04/07/19 06/10/19 06/10/19 History Liothyronine Sodium [Cytomel] 5 mcg PO DAILY 04/07/19 06/10/19 06/10/19 History Lurasidone HCl [Latuda] 120 mg PO QDAY 04/07/19 06/10/19 06/10/19 History Meclizine [Antivert] 25 mg PO TID PRN 04/07/19 06/10/19 06/10/19 History Metoprolol [Lopressor TAB] 50 mg PO DAILY 04/07/19 06/10/19 06/10/19 History Topiramate [Qudexy Xr] 1 tab PO DAILY 04/07/19 06/10/19 06/10/19 History clonazePAM [Klonopin] 1 mg PO DAILY 04/07/19 06/10/19 06/10/19 History Fluticasone/Salmeterol [Advair 1 puff IH BID 04/16/19 06/10/19 06/10/19 History Diskus 250-50 mcg] Levothyroxine [Synthroid] 300 mcg PO QDAY 04/16/19 06/10/19 06/10/19 History Losartan [Cozaar] 100 mg PO QDAY 04/16/19 06/10/19 06/10/19 History Lurasidone HCl [Latuda] 120 mg PO QDAY 04/16/19 06/10/19 06/10/19 History Meclizine [Antivert] 25 mg PO TID PRN 04/16/19 06/10/19 06/10/19 History Metoprolol Xl [Metoprolol 50 mg PO QDAY 04/16/19 06/10/19 06/10/19 History SUCCINATE ER TAB] Topiramate [Topamax] 200 mg PO QDAY 04/16/19 06/10/19 06/10/19 History Trazodone HCl 150 mg PO QDAY 04/16/19 06/10/19 06/10/19 History diphenhydrAMINE [Benadryl CAP] 50 mg PO QDAY 04/16/19 06/10/19 06/10/19 History hydroCHLOROthiazide [HCTZ] 25 mg PO QDAY 04/16/19 06/10/19 06/10/19 History Dicyclomine [Bentyl] 10 mg PO QID PRN #20 capsule 04/26/19 06/10/19 06/10/19 Rx Potassium Chloride [K-Dur] 10 meq PO QDAY #7 tablet 05/01/19 06/10/19 06/10/19 Rx clonazePAM [KlonoPIN] 1 mg PO DAILY #10 tablet 05/01/19 06/10/19 06/10/19 Rx Acetaminophen [Acetaminophen TAB] 1,000 mg PO Q6HR PRN #60 tablet 06/01/19 06/10/19 06/10/19 Rx HYDROcodone/APAP 5-325 [[place] 1 each PO Q6HR PRN #12 tablet 06/01/19 06/10/19 06/10/19 Rx 5-325 mg TAB] Acetaminophen [Acetaminophen 8 650 mg PO Q8H PRN #20 tablet.er 12/02/19 Unknown Rx Hour] Cyclobenzaprine [Flexeril 10 MG 10 mg PO QHS PRN #10 tablet 12/02/19 Unknown Rx TAB] ED Physical Exam - General Limitations: No Limitations General appearance: alert, in no apparent distress - Head Head exam: Present: atraumatic, normocephalic - Eye Eye exam: Present: normal appearance - ENT ENT exam: Present: mucous membranes moist - Neck Neck exam: Present: normal inspection - Respiratory Respiratory exam: Present: normal lung sounds bilaterally, chest wall tenderness (To palpation of the mid chest). Absent: respiratory distress, wheezes, rales, accessory muscle use - Cardiovascular Cardiovascular Exam: Present: regular rate, normal rhythm. Absent: systolic murmur, diastolic murmur, rubs, gallop - GI/Abdominal GI/Abdominal exam: Present: soft, normal bowel sounds. Absent: distended, tenderness, guarding - Extremities Exam Extremities exam: Present: normal inspection - Back Exam Back exam: Present: normal inspection - Neurological Exam Neurological exam: Present: alert, oriented X3 - Psychiatric Psychiatric exam: Present: normal affect, normal mood - Skin Skin exam: Present: warm, dry, intact, normal color. Absent: rash ED Course Vital Signs 12/02/19 05:06 Temperature 98.7 F Pulse Rate 116 H Respiratory 18 Rate Blood Pressure 185/110 O2 Sat by Pulse 98 Oximetry ÁNGEL score - Ángel Score Age > 65: (0) No Aspirin use within the Past 7 Days: (0) No 3 or more CAD Risk Factors: (0) No 2 or more Angina events in past 24 hrs: (0) No Known CAD with more than 50% Stenosis: (0) No Elevated Cardiac Markers: (0) No ST Deviation Greater than 0.5mm: (0) No ÁNGEL Score: 0 ED Medical Decision Making - Lab Data Result diagrams: 12/02/19 05:26 12/02/19 05:26 Laboratory Last Values WBC 10.3 K/mm3 (4.5-11.0) 12/02/19 05:26 RBC 4.29 M/mm3 (3.65-5.03) 12/02/19 05:26 Hgb 11.3 gm/dl (10.1-14.3) 12/02/19 05:26 Hct 34.9 % (30.3-42.9) 12/02/19 05:26 MCV 81 fl (79-97) 12/02/19 05:26 MCH 26 pg (28-32) L 12/02/19 05:26 MCHC 32 % (30-34) 12/02/19 05:26 RDW 13.8 % (13.2-15.2) 12/02/19 05:26 Plt Count 403 K/mm3 (140-440) 12/02/19 05:26 Lymph # Traffic Rate Computer 12/02/19 05:26 Add Manual Diff Complete 12/02/19 05:26 Total Counted 100 12/02/19 05:26 Seg Neuts % (Manual) 43.0 % (40.0-70.0) 12/02/19 05:26 Band Neutrophils % 0 % 12/02/19 05:26 Lymphocytes % (Manual) 51.0 % (13.4-35.0) H 12/02/19 05:26 Reactive Lymphs % (Man) 0 % 12/02/19 05:26 Monocytes % (Manual) 6.0 % (0.0-7.3) 12/02/19 05:26 Eosinophils % (Manual) 0 % (0.0-4.3) 12/02/19 05:26 Basophils % (Manual) 0 % (0.0-1.8) 12/02/19 05:26 Metamyelocytes % 0 % 12/02/19 05:26 Myelocytes % 0 % 12/02/19 05:26 Promyelocytes % 0 % 12/02/19 05:26 Blast Cells % 0 % 12/02/19 05:26 Nucleated RBC % Not Reportable 12/02/19 05:26 Seg Neutrophils # Man 4.4 K/mm3 (1.8-7.7) 12/02/19 05:26 Band Neutrophils # 0.0 K/mm3 12/02/19 05:26 Lymphocytes # (Manual) 5.3 K/mm3 (1.2-5.4) 12/02/19 05:26 Abs React Lymphs (Man) 0.0 K/mm3 12/02/19 05:26 Monocytes # (Manual) 0.6 K/mm3 (0.0-0.8) 12/02/19 05:26 Eosinophils # (Manual) 0.0 K/mm3 (0.0-0.4) 12/02/19 05:26 Basophils # (Manual) 0.0 K/mm3 (0.0-0.1) 12/02/19 05:26 Metamyelocytes # 0.0 K/mm3 12/02/19 05:26 Myelocytes # 0.0 K/mm3 12/02/19 05:26 Promyelocytes # 0.0 K/mm3 12/02/19 05:26 Blast Cells # 0.0 K/mm3 12/02/19 05:26 WBC Morphology Not Reportable 12/02/19 05:26 Hypersegmented Neuts Not Reportable 12/02/19 05:26 Hyposegmented Neuts Not Reportable 12/02/19 05:26 Hypogranular Neuts Not Reportable 12/02/19 05:26 Smudge Cells Not Reportable 12/02/19 05:26 Toxic Granulation Not Reportable 12/02/19 05:26 Toxic Vacuolation Not Reportable 12/02/19 05:26 Dohle Bodies Not Reportable 12/02/19 05:26 Pelger-Huet Anomaly Not Reportable 12/02/19 05:26 Nay Rods Not Reportable 12/02/19 05:26 Platelet Estimate Consistent w auto 12/02/19 05:26 Clumped Platelets Not Reportable 12/02/19 05:26 Plt Clumps, EDTA Not Reportable 12/02/19 05:26 Large Platelets Not Reportable 12/02/19 05:26 Giant Platelets Not Reportable 12/02/19 05:26 Platelet Satelliting Not Reportable 12/02/19 05:26 Plt Morphology Comment Not Reportable 12/02/19 05:26 RBC Morphology Normal 12/02/19 05:26 Dimorphic RBCs Not Reportable 12/02/19 05:26 Polychromasia Not Reportable 12/02/19 05:26 Hypochromasia Not Reportable 12/02/19 05:26 Poikilocytosis Not Reportable 12/02/19 05:26 Anisocytosis Not Reportable 12/02/19 05:26 Microcytosis Not Reportable 12/02/19 05:26 Macrocytosis Not Reportable 12/02/19 05:26 Spherocytes Not Reportable 12/02/19 05:26 Pappenheimer Bodies Not Reportable 12/02/19 05:26 Sickle Cells Not Reportable 12/02/19 05:26 Target Cells Not Reportable 12/02/19 05:26 Tear Drop Cells Not Reportable 12/02/19 05:26 Ovalocytes Not Reportable 12/02/19 05:26 Helmet Cells Not Reportable 12/02/19 05:26 [place] Bodies Not Reportable 12/02/19 05:26 Sunshine Rings Not Reportable 12/02/19 05:26 Renea Cells Not Reportable 12/02/19 05:26 Bite Cells Not Reportable 12/02/19 05:26 Crenated Cell Not Reportable 12/02/19 05:26 Elliptocytes Not Reportable 12/02/19 05:26 Acanthocytes (Spur) Not Reportable 12/02/19 05:26 Rouleaux Not Reportable 12/02/19 05:26 Hemoglobin C Crystals Not Reportable 12/02/19 05:26 Schistocytes Not Reportable 12/02/19 05:26 Malaria parasites Not Reportable 12/02/19 05:26 Yash Bodies Not Reportable 12/02/19 05:26 Hem Pathologist Commnt No 12/02/19 05:26 Sodium 136 mmol/L (137-145) L 12/02/19 05:26 Potassium 3.8 mmol/L (3.6-5.0) 12/02/19 05:26 Chloride 98.5 mmol/L (98-107) 12/02/19 05:26 Carbon Dioxide 23 mmol/L (22-30) 12/02/19 05:26 Anion Gap 18 mmol/L 12/02/19 05:26 BUN 6 mg/dL (7-17) L 12/02/19 05:26 Creatinine 0.8 mg/dL (0.7-1.2) 12/02/19 05:26 Estimated GFR > 60 ml/min 12/02/19 05:26 BUN/Creatinine Ratio 8 % 12/02/19 05:26 Glucose 174 mg/dL (65-100) H 12/02/19 05:26 Calcium 9.3 mg/dL (8.4-10.2) 12/02/19 05:26 Troponin T < 0.010 ng/mL (0.00-0.029) 12/02/19 08:40 NT-Pro-B Natriuret Pep 46.85 pg/mL (0-450) 12/02/19 08:40 - EKG Data EKG shows normal: sinus rhythm Rate: tachycardia - EKG Data Interpretation: normal EKG - Radiology Data Radiology results: report reviewed, image reviewed Fluoro Time In Minutes: CHEST 1 VIEW INDICATION / CLINICAL INFORMATION: Chest Pain. COMPARISON: 10/03/2019 FINDINGS: SUPPORT DEVICES: None. HEART / MEDIASTINUM: No significant abnormality. LUNGS / PLEURA: No significant pulmonary or pleural abnormality. No pneumothorax. ADDITIONAL FINDINGS: No significant additional findings. IMPRESSION: 1. No acute findings. No interval change. Signer Name: Jovanna Fountain MD Signed: 12/02/2019 5:28 AM Workstation Name: [id number] Transcribed By: Dictated By: Jovanna Fountain MD Electronically Authenticated By: Jovanna Fountain MD Signed Date/Time: 12/02/19 0528 - Medical Decision Making This is a 44-year-old female presents with costochondritis/chest wall pain. Patient given [place] 2 tabs in the ED. All labs are within normal limits troponin negative x3, proBNP negative, EKG sinus tachycardia otherwise normal, chest x-ray negative Blood pressure reduced while in ED, initial reading most likely due to pain. Vital signs are normal patient is in no acute distress. Patient states that she does have a appointment with her heart doctor this week. - Differential Diagnosis Angina, GERD, costochondritis, muscle wall pain Critical care attestation.: If time is entered above; I have spent that time in minutes in the direct care of this critically ill patient, excluding procedure time. ED Disposition Clinical Impression: Acute costochondritis, Acute chest wall pain Disposition: -01 TO HOME OR SELFCARE Is pt being admited?: No Does the pt Need Aspirin: No Condition: Stable Instructions: Chest Pain (ED), Costochondritis (ED) Additional Instructions: Make sure to follow up with the primary care physician as discussed. Take all your medications as you've been prescribed. If you have any worsening symptoms or develop new symptoms please return to ED immediately. Prescriptions: Cyclobenzaprine [Flexeril 10 MG TAB] 10 mg PO QHS PRN #10 tablet PRN Reason: Muscle Spasm Acetaminophen [Acetaminophen 8 Hour] 650 mg PO Q8H PRN #20 tablet.er PRN Reason: Pain , Severe (7-10) Referrals: PRIMARY CARE, [Primary Care Provider] - 3-5 Days Forms: Accompanied Note, Work/School Release Form(ED) Time of Disposition: 09:50
[2019-12-02 09:37] VITALS: BP 122/70
== END 2019-12-02 10:31 | disposition home or self-care (01) ==
LOC: ED 04:55
DX: M94.0 Chondrocostal junction syndrome [Tietze] (principal); I10 Essential (primary) hypertension; E11.9 Type 2 diabetes mellitus without complications; M19.90 Unspecified osteoarthritis, unspecified site; J45.909 Unspecified asthma, uncomplicated; G43.909 Migraine, unspecified, not intractable, without status migrainosus; F31.9 Bipolar disorder, unspecified; F41.9 Anxiety disorder, unspecified; E03.9 Hypothyroidism, unspecified; Z86.69 Personal history of other diseases of the nervous system and sense organs; Z87.442 Personal history of urinary calculi; Z86.73 Personal history of transient ischemic attack (TIA), and cerebral infarction without residual deficits; Z88.6 Allergy status to analgesic agent; Z91.040 Latex allergy status; Z88.8 Allergy status to other drugs, medicaments and biological substances; Z79.899 Other long term (current) drug therapy
CPT/HCPCS: 36415; 71045; 80048; 83880; 84484; 85007; 85025; 93005; 93010; 99284

== ENCOUNTER 2020-01-08 20:31 | Emergency (ER) | payer MEDICARE ==
[2020-01-08] MEDS ORDERED: ONDANSETRON 4 MG ODT TAB PO ONE (20:57)
[2020-01-08] MEDS ORDERED: HYDROcodone/ACETAMINOPHEN 7.5-325MG TAB PO ONE (20:57)
[2020-01-08 21:07] LABS: Bacteria,Urine 1+ /HPF (Negative); Bilirubin,Urine NEG (Negative); Blood,Urine NEG (Negative); Color,Urine Straw (Yellow); Protein,Urine <15 mg/dL mg/dL (Negative); Urobilinogen,Urine < 2.0 mg/dL (<2.0)
--- NOTE | 2020-01-08 21:08 | Emergency Department Report ---
ED General Adult HPI - General Chief complaint: Abdominal Pain Stated complaint: LOWER ABD PAIN Time Seen by Provider: 01/08/20 20:43 Source: patient Mode of arrival: Ambulatory Limitations: No Limitations - History of Present Illness Initial comments: Patient is a 44-year-old female presents emergency room with complaints of lower abdominal pain that began around 12 PM today. She states that she has had this recurrently in the past. She states she has a history of endometriosis. She states that she is followed by Dr. 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 She has associated nausea. She denies any vomiting, diarrhea, fever, dysuria, urinary frequency, dark urine. She does not report any vaginal discharge or irritation. She has a past medical history of HTN, DM, bipolar, fibromyalgia, hypothyroid, seizures. She has an allergy to aspirin, Stadol, latex, NSAIDs. Severity scale (0 -10): 4 - Related Data Home Medications Medication Instructions Recorded Confirmed Last Taken Linaclotide [Linzess] 290 mcg PO DAILY 04/07/19 06/10/19 06/10/19 Liothyronine Sodium [Cytomel] 5 mcg PO DAILY 04/07/19 06/10/19 06/10/19 Lurasidone HCl [Latuda] 120 mg PO QDAY 04/07/19 06/10/19 06/10/19 Meclizine [Antivert] 25 mg PO TID PRN 04/07/19 06/10/19 06/10/19 Metoprolol [Lopressor TAB] 50 mg PO DAILY 04/07/19 06/10/19 06/10/19 Topiramate [Qudexy Xr] 1 tab PO DAILY 04/07/19 06/10/19 06/10/19 clonazePAM [Klonopin] 1 mg PO DAILY 04/07/19 06/10/19 06/10/19 Fluticasone/Salmeterol [Advair 1 puff IH BID 04/16/19 06/10/19 06/10/19 Diskus 250-50 mcg] Levothyroxine [Synthroid] 300 mcg PO QDAY 04/16/19 06/10/19 06/10/19 Losartan [Cozaar] 100 mg PO QDAY 04/16/19 06/10/19 06/10/19 Lurasidone HCl [Latuda] 120 mg PO QDAY 04/16/19 06/10/19 06/10/19 Meclizine [Antivert] 25 mg PO TID PRN 04/16/19 06/10/19 06/10/19 Metoprolol Xl [Metoprolol 50 mg PO QDAY 04/16/19 06/10/19 06/10/19 SUCCINATE ER TAB] Topiramate [Topamax] 200 mg PO QDAY 04/16/19 06/10/19 06/10/19 Trazodone HCl 150 mg PO QDAY 04/16/19 06/10/19 06/10/19 diphenhydrAMINE [Benadryl CAP] 50 mg PO QDAY 04/16/19 06/10/19 06/10/19 hydroCHLOROthiazide [HCTZ] 25 mg PO QDAY 04/16/19 06/10/19 06/10/19 Previous Rx's Medication Instructions Recorded Last Taken Type Dicyclomine [Bentyl] 10 mg PO QID PRN #20 capsule 04/26/19 06/10/19 Rx Potassium Chloride [K-Dur] 10 meq PO QDAY #7 tablet 05/01/19 06/10/19 Rx clonazePAM [KlonoPIN] 1 mg PO DAILY #10 tablet 05/01/19 06/10/19 Rx Acetaminophen [Acetaminophen TAB] 1,000 mg PO Q6HR PRN #60 tablet 06/01/19 06/10/19 Rx HYDROcodone/APAP 5-325 [Rattan 1 each PO Q6HR PRN #12 tablet 06/01/19 06/10/19 Rx 5-325 mg TAB] Acetaminophen [Acetaminophen 8 650 mg PO Q8H PRN #20 tablet.er 12/02/19 Unknown Rx Hour] Cyclobenzaprine [Flexeril 10 MG 10 mg PO QHS PRN #10 tablet 12/02/19 Unknown Rx TAB] Acetaminophen [Tylenol] 650 mg PO Q8HR PRN #20 capsule 01/08/20 Unknown Rx traMADoL [Ultram 50 MG tab] 50 mg PO Q6HR PRN #10 tablet 01/08/20 Unknown Rx Allergies Allergy/AdvReac Type Severity Reaction Status Date / Time aspirin Allergy Unknown Verified 04/16/19 11:58 butorphanol tartrate Allergy Seizure Verified 01/20/18 07:51 [From Stadol] latex Allergy Hives Verified 01/20/18 07:51 NSAIDS (Non-Steroidal Allergy Unknown Verified 04/16/19 11:58 Anti-Inflamma ED Review of Systems ROS: Stated complaint: LOWER ABD PAIN Other details as noted in HPI Comment: All other systems reviewed and negative ED Past Medical Hx - Past Medical History Hx Hypertension: Yes Hx CVA: Yes (TIA) Hx Heart Attack/AMI: No Hx Congestive Heart Failure: No Hx Diabetes: Yes Hx Deep Vein Thrombosis: No Hx Pulmonary Embolism: No Hx Liver Disease: No Hx Renal Disease: Yes (stage 3) Hx Sickle Cell Disease: No Hx Arthritis: Yes (knees and back) Hx Headaches / Migraines: Yes Hx Seizures: Yes Hx Kidney Stones: Yes Hx Psychiatric Treatment: Yes (Bipolar, Panic Attacks, Anxiety, MDD) Hx Asthma: Yes Hx COPD: No Hx Tuberculosis: No Hx Dementia: No Hx HIV: No Additional medical history: lupus, Gastroparesis, Neuropathy,. high cholesterol, Endometriosis,. bipolar, Fibromylagia, hypothyroidism. anxiety PANIC ATTACK, carpal tunnel syndrome - Surgical History Hx Coronary Stent: No Hx Open Heart Surgery: No Hx Internal Defibrillator: No Hx Cholecystectomy: No Hx Appendectomy: No Hx Breast Surgery: No Additional Surgical History: "rectal repair" after vaginal delivery. lump removed from right arm and right breast - Social History Smoking Status: Never Smoker Substance Use Type: None - Medications Home Medications: Home Medications Medication Instructions Recorded Confirmed Last Taken Type Linaclotide [Linzess] 290 mcg PO DAILY 04/07/19 06/10/19 06/10/19 History Liothyronine Sodium [Cytomel] 5 mcg PO DAILY 04/07/19 06/10/19 06/10/19 History Lurasidone HCl [Latuda] 120 mg PO QDAY 04/07/19 06/10/19 06/10/19 History Meclizine [Antivert] 25 mg PO TID PRN 04/07/19 06/10/19 06/10/19 History Metoprolol [Lopressor TAB] 50 mg PO DAILY 04/07/19 06/10/19 06/10/19 History Topiramate [Qudexy Xr] 1 tab PO DAILY 04/07/19 06/10/19 06/10/19 History clonazePAM [Klonopin] 1 mg PO DAILY 04/07/19 06/10/19 06/10/19 History Fluticasone/Salmeterol [Advair 1 puff IH BID 04/16/19 06/10/19 06/10/19 History Diskus 250-50 mcg] Levothyroxine [Synthroid] 300 mcg PO QDAY 04/16/19 06/10/19 06/10/19 History Losartan [Cozaar] 100 mg PO QDAY 04/16/19 06/10/19 06/10/19 History Lurasidone HCl [Latuda] 120 mg PO QDAY 04/16/19 06/10/19 06/10/19 History Meclizine [Antivert] 25 mg PO TID PRN 04/16/19 06/10/19 06/10/19 History Metoprolol Xl [Metoprolol 50 mg PO QDAY 04/16/19 06/10/19 06/10/19 History SUCCINATE ER TAB] Topiramate [Topamax] 200 mg PO QDAY 04/16/19 06/10/19 06/10/19 History Trazodone HCl 150 mg PO QDAY 04/16/19 06/10/19 06/10/19 History diphenhydrAMINE [Benadryl CAP] 50 mg PO QDAY 04/16/19 06/10/19 06/10/19 History hydroCHLOROthiazide [HCTZ] 25 mg PO QDAY 04/16/19 06/10/19 06/10/19 History Dicyclomine [Bentyl] 10 mg PO QID PRN #20 capsule 04/26/19 06/10/19 06/10/19 Rx Potassium Chloride [K-Dur] 10 meq PO QDAY #7 tablet 05/01/19 06/10/19 06/10/19 Rx clonazePAM [KlonoPIN] 1 mg PO DAILY #10 tablet 05/01/19 06/10/19 06/10/19 Rx Acetaminophen [Acetaminophen TAB] 1,000 mg PO Q6HR PRN #60 tablet 06/01/19 06/10/19 06/10/19 Rx HYDROcodone/APAP 5-325 [Rattan 1 each PO Q6HR PRN #12 tablet 06/01/19 06/10/19 06/10/19 Rx 5-325 mg TAB] Acetaminophen [Acetaminophen 8 650 mg PO Q8H PRN #20 tablet.er 12/02/19 Unknown Rx Hour] Cyclobenzaprine [Flexeril 10 MG 10 mg PO QHS PRN #10 tablet 12/02/19 Unknown Rx TAB] Acetaminophen [Tylenol] 650 mg PO Q8HR PRN #20 capsule 01/08/20 Unknown Rx traMADoL [Ultram 50 MG tab] 50 mg PO Q6HR PRN #10 tablet 01/08/20 Unknown Rx ED Physical Exam - General Limitations: No Limitations General appearance: alert, in no apparent distress - Head Head exam: Present: atraumatic, normocephalic - Eye Eye exam: Present: normal appearance - ENT ENT exam: Present: mucous membranes moist - Respiratory Respiratory exam: Present: normal lung sounds bilaterally. Absent: respiratory distress, wheezes, rales, rhonchi, stridor, chest wall tenderness, accessory muscle use, decreased breath sounds, prolonged expiratory - Cardiovascular Cardiovascular Exam: Present: regular rate, normal rhythm, normal heart sounds. Absent: systolic murmur, diastolic murmur, rubs, gallop - GI/Abdominal GI/Abdominal exam: Present: soft, tenderness (suprapubic), normal bowel sounds, other (no peritoneal signs, negative mcburneys point ttp). Absent: distended, guarding, rebound, rigid - Back Exam Back exam: Absent: CVA tenderness (R), CVA tenderness (L) - Neurological Exam Neurological exam: Present: alert, oriented X3 - Psychiatric Psychiatric exam: Present: normal affect, normal mood - Skin Skin exam: Present: warm, dry, intact ED Course Vital Signs 01/08/20 01/08/20 20:35 23:27 Temperature 98.1 F Pulse Rate 114 H 96 H Respiratory 14 18 Rate Blood Pressure 153/106 Blood Pressure 110/69 [Right] O2 Sat by Pulse 98 97 Oximetry ED Medical Decision Making - Lab Data Result diagrams: 01/08/20 21:07 01/08/20 21:07 Lab Results 01/08/20 01/08/20 01/08/20 Range/Units 20:56 21:07 21:07 WBC 11.1 H (4.5-11.0) K/mm3 RBC 3.97 (3.65-5.03) M/mm3 Hgb 10.5 (10.1-14.3) gm/dl Hct 32.5 (30.3-42.9) % MCV 82 (79-97) fl MCH 26 L (28-32) pg MCHC 32 (30-34) % RDW 14.2 (13.2-15.2) % Plt Count 447 H (140-440) K/mm3 Lymph % (Auto) 33.4 (13.4-35.0) % Morrill % (Auto) 4.9 (0.0-7.3) % Eos % (Auto) 1.5 (0.0-4.3) % Baso % (Auto) 2.1 H (0.0-1.8) % Lymph # 3.7 (1.2-5.4) K/mm3 Morrill # 0.5 (0.0-0.8) K/mm3 Eos # 0.2 (0.0-0.4) K/mm3 Baso # 0.2 H (0.0-0.1) K/mm3 Seg Neutrophils % 58.1 (40.0-70.0) % Seg Neutrophils # 6.4 (1.8-7.7) K/mm3 Sodium 136 L (137-145) mmol/L Potassium 3.3 L (3.6-5.0) mmol/L Chloride 96.6 L (98-107) mmol/L Carbon Dioxide 22 (22-30) mmol/L Anion Gap 21 mmol/L BUN 8 (7-17) mg/dL Creatinine 0.9 (0.7-1.2) mg/dL Estimated GFR > 60 ml/min BUN/Creatinine Ratio 9 % Glucose 153 H (65-100) mg/dL Calcium 9.6 (8.4-10.2) mg/dL Total Bilirubin 0.20 (0.1-1.2) mg/dL AST 16 (5-40) units/L ALT 10 (7-56) units/L Alkaline Phosphatase 91 (35-129) units/L Total Protein 8.1 (6.3-8.2) g/dL Albumin 3.9 (3.9-5) g/dL Albumin/Globulin Ratio 0.9 % HCG, Qual (Negative) Urine Color Straw (Yellow) Urine Turbidity Slightly-cloudy (Clear) Urine pH 5.0 (5.0-7.0) Ur Specific Pelham 1.008 (1.003-1.030) Urine Protein <15 mg/dl (Negative) mg/dL Urine Glucose (UA) 50 (Negative) mg/dL Urine Ketones Neg (Negative) mg/dL Urine Blood Neg (Negative) Urine Nitrite Neg (Negative) Urine Bilirubin Neg (Negative) Urine Urobilinogen < 2.0 (<2.0) mg/dL Ur Leukocyte Esterase Neg (Negative) Urine WBC (Auto) 1.0 (0.0-6.0) /HPF Urine RBC (Auto) 2.0 (0.0-6.0) /HPF U Epithel Cells (Auto) 3.0 (0-13.0) /HPF Urine Bacteria (Auto) 1+ (Negative) /HPF 01/08/20 Range/Units 21:07 WBC (4.5-11.0) K/mm3 RBC (3.65-5.03) M/mm3 Hgb (10.1-14.3) gm/dl Hct (30.3-42.9) % MCV (79-97) fl MCH (28-32) pg MCHC (30-34) % RDW (13.2-15.2) % Plt Count (140-440) K/mm3 Lymph % (Auto) (13.4-35.0) % Morrill % (Auto) (0.0-7.3) % Eos % (Auto) (0.0-4.3) % Baso % (Auto) (0.0-1.8) % Lymph # (1.2-5.4) K/mm3 Morrill # (0.0-0.8) K/mm3 Eos # (0.0-0.4) K/mm3 Baso # (0.0-0.1) K/mm3 Seg Neutrophils % (40.0-70.0) % Seg Neutrophils # (1.8-7.7) K/mm3 Sodium (137-145) mmol/L Potassium (3.6-5.0) mmol/L Chloride (98-107) mmol/L Carbon Dioxide (22-30) mmol/L Anion Gap mmol/L BUN (7-17) mg/dL Creatinine (0.7-1.2) mg/dL Estimated GFR ml/min BUN/Creatinine Ratio % Glucose (65-100) mg/dL Calcium (8.4-10.2) mg/dL Total Bilirubin (0.1-1.2) mg/dL AST (5-40) units/L ALT (7-56) units/L Alkaline Phosphatase (35-129) units/L Total Protein (6.3-8.2) g/dL Albumin (3.9-5) g/dL Albumin/Globulin Ratio % HCG, Qual Negative (Negative) Urine Color (Yellow) Urine Turbidity (Clear) Urine pH (5.0-7.0) Ur Specific Pelham (1.003-1.030) Urine Protein (Negative) mg/dL Urine Glucose (UA) (Negative) mg/dL Urine Ketones (Negative) mg/dL Urine Blood (Negative) Urine Nitrite (Negative) Urine Bilirubin (Negative) Urine Urobilinogen (<2.0) mg/dL Ur Leukocyte Esterase (Negative) Urine WBC (Auto) (0.0-6.0) /HPF Urine RBC (Auto) (0.0-6.0) /HPF U Epithel Cells (Auto) (0-13.0) /HPF Urine Bacteria (Auto) (Negative) /HPF Vital Signs 01/08/20 01/08/20 20:35 23:27 Temperature 98.1 F Pulse Rate 114 H 96 H Respiratory 14 18 Rate Blood Pressure 153/106 Blood Pressure 110/69 [Right] O2 Sat by Pulse 98 97 Oximetry - Medical Decision Making Patient is a 44-year-old female presents emergency room with complaints of lower abdominal pain that began around 12 PM today. She states that she has had this recurrently in the past. She states she has a history of endometriosis. She states that she is followed by Dr. 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 She has associated nausea. She denies any vomiting, diarrhea, fever, dysuria, urinary frequency, dark urine. She does not report any vaginal discharge or irritation. She has a past medical history of HTN, DM, bipolar, fibromyalgia, hypothyroid, seizures. She has an allergy to aspirin, Stadol, latex, NSAIDs. Initial vitals with elevated heart rate and blood pressure which improved upon repeat. On exam suprapubic abdominal tenderness to palpation, no guarding, no rebound, no rigid ity, no peritoneal signs, negative McBurney's point tenderness. CBC is stable. CMP with very mild dehydration and mild hypokalemia, repleted with 40 mEq of K- Dur. UA without signs of UTI. Patient given 1 L IV fluids, Zofran, morphine, Rattan. Symptoms resolved and patient was feeling much better and sleeping comfortably in the exam room. Patient given prescription for Tylenol and tramadol. Will have patient follow-up with [employer] MACHINE OPERATOR/TENDER and her primary care physician. Advised patient Please increase your water intake. Please take medication as prescribed as needed. Do not drive or operate heavy machinery while taking pain medication. Please follow-up with your primary care doctor. Please follow-up with the SLICING MACHINE OPERATOR/TENDER. Return to the emergency room immediately for any new or worsening symptoms. - Differential Diagnosis UTI, fibroids, endometriosis, adenomyosis, ovarian cyst, chronic pain Critical care attestation.: If time is entered above; I have spent that time in minutes in the direct care of this critically ill patient, excluding procedure time. ED Disposition Clinical Impression: Lower abdominal pain, Hypokalemia Disposition: TO HOME OR SELFCARE Is pt being admited?: No Does the pt Need Aspirin: No Condition: Stable Instructions: Abdominal Pain (ED) Additional Instructions: Please increase your water intake. Please take medication as prescribed as needed. Do not drive or operate heavy machinery while taking pain medication. Please follow-up with your primary care doctor. Please follow-up with the SLICING MACHINE OPERATOR/TENDER. Return to the emergency room immediately for any new or worsening symptoms. Prescriptions: Acetaminophen [Tylenol] 650 mg PO Q8HR PRN #20 capsule PRN Reason: Pain, Moderate (4-6) traMADoL [Ultram 50 MG tab] 50 mg PO Q6HR PRN #10 tablet PRN Reason: Pain , Severe (7-10) Referrals: PRIMARY MD DIONNA [Primary Care Provider] - 2-3 Days NAKITA GALE MD [Staff Physician] - 2-3 Days Time of Disposition: 23:10 Print Language: URDU
[2020-01-08 21:40] LABS: Basophils # (Auto) 0.2 K/mm3 (0.0-0.1); Basophils % (Auto) 2.1 % (0.0-1.8); Eosinophils # (Auto) 0.2 K/mm3 (0.0-0.4); Eosinophils % (Auto) 1.5 % (0.0-4.3); Hematocrit 32.5 % (30.3-42.9); Hemoglobin 10.5 gm/dl (10.1-14.3); Lymphocytes # (Auto) 3.7 K/mm3 (1.2-5.4); Lymphocytes % (Auto) 33.4 % (13.4-35.0); Mean Corpuscular HGB Conc 32 % (30-34); Mean Corpuscular Volume 82 fl (79-97); Monocytes # (Auto) 0.5 K/mm3 (0.0-0.8); Monocytes % (Auto) 4.9 % (0.0-7.3); Platelet Count 447 K/mm3 (140-440); Red Blood Count 3.97 M/mm3 (3.65-5.03); Red Cell Distribution Width 14.2 % (13.2-15.2)
[2020-01-08 21:48] LABS: Alanine Aminotransferase 10 units/L (7-56); Albumin 3.9 g/dL (3.9-5); BUN/Creatinine Ratio 9; Blood Urea Nitrogen 8 mg/dL (7-17); Calcium 9.6 mg/dL (8.4-10.2); Hemolysis Index 13
[2020-01-08] MEDS ORDERED: SODIUM CHLORIDE 0.9% 1000 ML 1,000 ML IV ONE (21:54)
[2020-01-08] MEDS ORDERED: MORPHINE 4 MG/1 ML INJ IV ONE (21:54)
[2020-01-08] MEDS ORDERED: POTASSIUM CHLORIDE ER 20 MEQ TAB PO ONE (21:54)
[2020-01-08 23:34] VITALS: BP 110/69
== END 2020-01-08 23:27 | disposition home or self-care (01) ==
LOC: ED 20:31
DX: E87.6 Hypokalemia (principal); R10.30 Lower abdominal pain, unspecified
CPT/HCPCS: 36415; 80053; 81001; 84703; 85025; 96374; 99283; J2270; J7030; Q0162

== ENCOUNTER 2020-01-18 07:14 | Inpatient (IN) | payer MEDICARE ==
[2020-01-18] MEDS ORDERED: SODIUM CHLORIDE 0.9% 500 ML 1,000 ML IV ONE (07:45)
--- NOTE | 2020-01-18 07:45 | Emergency Department Report ---
ED General Adult HPI - General Chief complaint: Fever Stated complaint: FEVER Time Seen by Provider: 01/18/20 07:43 Source: patient Mode of arrival: Ambulatory Limitations: No Limitations - History of Present Illness Initial comments: This is a 44-year-old female who has a history of a psychiatric disorder and multiple emergency department visits. I do believe she has a history of acute renal injury but not currently stage III kidney failure. Review of her last laboratory testing shows recent normal creatinines. She was last seen here on January 07 with a complaint of lower abdominal pain. No substantive acute pathology was found. She arrives today stating that she feels like she had a fever. She did not measure a temperature at home. She has had some nonproductive cough for the past 4 days and some chest discomfort. She does not report leg discomfort. She is not reporting acute shortness of breath. Patient is a type II diabetic. She has no history of venous thromboembolism. -: Gradual, days(s) Location: chest (On cough) Radiation: non-radiation (Nonradiating, nonpleuritic) Quality: aching Consistency: intermittent Improves with: none Worsens with: other (Cough) Associated Symptoms: denies other symptoms, cough, other - Related Data Home Medications Medication Instructions Recorded Confirmed Last Taken Linaclotide [Linzess] 290 mcg PO DAILY 04/07/19 06/10/19 06/10/19 Liothyronine Sodium [Cytomel] 5 mcg PO DAILY 04/07/19 06/10/19 06/10/19 Lurasidone HCl [Latuda] 120 mg PO QDAY 04/07/19 06/10/19 06/10/19 Meclizine [Antivert] 25 mg PO TID PRN 04/07/19 06/10/19 06/10/19 Metoprolol [Lopressor TAB] 50 mg PO DAILY 04/07/19 06/10/19 06/10/19 Topiramate [Qudexy Xr] 1 tab PO DAILY 04/07/19 06/10/19 06/10/19 clonazePAM [Klonopin] 1 mg PO DAILY 04/07/19 06/10/19 06/10/19 Fluticasone/Salmeterol [Advair 1 puff IH BID 04/16/19 06/10/19 06/10/19 Diskus 250-50 mcg] Levothyroxine [Synthroid] 300 mcg PO QDAY 04/16/19 06/10/19 06/10/19 Losartan [Cozaar] 100 mg PO QDAY 04/16/19 06/10/19 06/10/19 Lurasidone HCl [Latuda] 120 mg PO QDAY 04/16/19 06/10/19 06/10/19 Meclizine [Antivert] 25 mg PO TID PRN 04/16/19 06/10/19 06/10/19 Metoprolol Xl [Metoprolol 50 mg PO QDAY 04/16/19 06/10/19 06/10/19 SUCCINATE ER TAB] Topiramate [Topamax] 200 mg PO QDAY 04/16/19 06/10/19 06/10/19 Trazodone HCl 150 mg PO QDAY 04/16/19 06/10/19 06/10/19 diphenhydrAMINE [Benadryl CAP] 50 mg PO QDAY 04/16/19 06/10/19 06/10/19 hydroCHLOROthiazide [HCTZ] 25 mg PO QDAY 04/16/19 06/10/19 06/10/19 Previous Rx's Medication Instructions Recorded Last Taken Type Dicyclomine [Bentyl] 10 mg PO QID PRN #20 capsule 04/26/19 06/10/19 Rx Potassium Chloride [K-Dur] 10 meq PO QDAY #7 tablet 05/01/19 06/10/19 Rx clonazePAM [KlonoPIN] 1 mg PO DAILY #10 tablet 05/01/19 06/10/19 Rx Acetaminophen [Acetaminophen TAB] 1,000 mg PO Q6HR PRN #60 tablet 06/01/19 06/10/19 Rx HYDROcodone/APAP 5-325 [Letha 1 each PO Q6HR PRN #12 tablet 06/01/19 06/10/19 Rx 5-325 mg TAB] Acetaminophen [Acetaminophen 8 650 mg PO Q8H PRN #20 tablet.er 12/02/19 Unknown Rx Hour] Cyclobenzaprine [Flexeril 10 MG 10 mg PO QHS PRN #10 tablet 12/02/19 Unknown Rx TAB] Acetaminophen [Tylenol] 650 mg PO Q8HR PRN #20 capsule 01/08/20 Unknown Rx traMADoL [Ultram 50 MG tab] 50 mg PO Q6HR PRN #10 tablet 01/08/20 Unknown Rx Allergies Allergy/AdvReac Type Severity Reaction Status Date / Time aspirin Allergy Unknown Verified 04/16/19 11:58 butorphanol tartrate Allergy Seizure Verified 01/20/18 07:51 [From Stadol] latex Allergy Hives Verified 01/20/18 07:51 NSAIDS (Non-Steroidal Allergy Unknown Verified 04/16/19 11:58 Anti-Inflamma ED Review of Systems ROS: Stated complaint: FEVER Other details as noted in HPI Constitutional: fever. denies: chills Eyes: other (Sore throat). denies: eye pain, eye discharge, vision change ENT: throat pain. denies: ear pain Respiratory: cough. denies: shortness of breath, wheezing Cardiovascular: chest pain. denies: palpitations Endocrine: no symptoms reported Gastrointestinal: denies: abdominal pain, nausea, diarrhea Genitourinary: denies: urgency, dysuria, discharge Musculoskeletal: denies: back pain, joint swelling, arthralgia Skin: denies: rash, lesions Neurological: denies: headache, weakness, paresthesias Psychiatric: denies: anxiety, depression Hematological/Lymphatic: denies: easy bleeding, easy bruising ED Past Medical Hx - Past Medical History Previous Medical History?: Yes Hx Hypertension: Yes Hx CVA: Yes (TIA) Hx Heart Attack/AMI: No Hx Congestive Heart Failure: No Hx Diabetes: Yes Hx Deep Vein Thrombosis: No Hx Pulmonary Embolism: No Hx Liver Disease: No Hx Renal Disease: Yes (stage 3) Hx Sickle Cell Disease: No Hx Arthritis: Yes (knees and back) Hx Headaches / Migraines: Yes Hx Seizures: Yes Hx Kidney Stones: Yes Hx Psychiatric Treatment: Yes (Bipolar, Panic Attacks, Anxiety, MDD) Hx Asthma: Yes Hx COPD: No Hx Tuberculosis: No Hx Dementia: No Hx HIV: No Additional medical history: lupus, Gastroparesis, Neuropathy,. high cholesterol, Endometriosis,. bipolar, Fibromylagia, hypothyroidism. anxiety PANIC ATTACK, carpal tunnel syndrome - Surgical History Past Surgical History?: Yes Hx Coronary Stent: No Hx Open Heart Surgery: No Hx Internal Defibrillator: No Hx Cholecystectomy: No Hx Appendectomy: No Hx Breast Surgery: No Additional Surgical History: "rectal repair" after vaginal delivery. lump removed from right arm and right breast - Social History Smoking Status: Never Smoker Substance Use Type: Alcohol - Medications Home Medications: Home Medications Medication Instructions Recorded Confirmed Last Taken Type Linaclotide [Linzess] 290 mcg PO DAILY 04/07/19 06/10/19 06/10/19 History Liothyronine Sodium [Cytomel] 5 mcg PO DAILY 04/07/19 06/10/19 06/10/19 History Lurasidone HCl [Latuda] 120 mg PO QDAY 04/07/19 06/10/19 06/10/19 History Meclizine [Antivert] 25 mg PO TID PRN 04/07/19 06/10/19 06/10/19 History Metoprolol [Lopressor TAB] 50 mg PO DAILY 04/07/19 06/10/19 06/10/19 History Topiramate [Qudexy Xr] 1 tab PO DAILY 04/07/19 06/10/19 06/10/19 History clonazePAM [Klonopin] 1 mg PO DAILY 04/07/19 06/10/19 06/10/19 History Fluticasone/Salmeterol [Advair 1 puff IH BID 04/16/19 06/10/19 06/10/19 History Diskus 250-50 mcg] Levothyroxine [Synthroid] 300 mcg PO QDAY 04/16/19 06/10/19 06/10/19 History Losartan [Cozaar] 100 mg PO QDAY 04/16/19 06/10/19 06/10/19 History Lurasidone HCl [Latuda] 120 mg PO QDAY 04/16/19 06/10/19 06/10/19 History Meclizine [Antivert] 25 mg PO TID PRN 04/16/19 06/10/19 06/10/19 History Metoprolol Xl [Metoprolol 50 mg PO QDAY 04/16/19 06/10/19 06/10/19 History SUCCINATE ER TAB] Topiramate [Topamax] 200 mg PO QDAY 04/16/19 06/10/19 06/10/19 History Trazodone HCl 150 mg PO QDAY 04/16/19 06/10/19 06/10/19 History diphenhydrAMINE [Benadryl CAP] 50 mg PO QDAY 04/16/19 06/10/19 06/10/19 History hydroCHLOROthiazide [HCTZ] 25 mg PO QDAY 04/16/19 06/10/19 06/10/19 History Dicyclomine [Bentyl] 10 mg PO QID PRN #20 capsule 04/26/19 06/10/19 06/10/19 Rx Potassium Chloride [K-Dur] 10 meq PO QDAY #7 tablet 05/01/19 06/10/19 06/10/19 Rx clonazePAM [KlonoPIN] 1 mg PO DAILY #10 tablet 05/01/19 06/10/19 06/10/19 Rx Acetaminophen [Acetaminophen TAB] 1,000 mg PO Q6HR PRN #60 tablet 06/01/19 06/10/19 06/10/19 Rx HYDROcodone/APAP 5-325 [Letha 1 each PO Q6HR PRN #12 tablet 06/01/19 06/10/19 06/10/19 Rx 5-325 mg TAB] Acetaminophen [Acetaminophen 8 650 mg PO Q8H PRN #20 tablet.er 12/02/19 Unknown Rx Hour] Cyclobenzaprine [Flexeril 10 MG 10 mg PO QHS PRN #10 tablet 12/02/19 Unknown Rx TAB] Acetaminophen [Tylenol] 650 mg PO Q8HR PRN #20 capsule 01/08/20 Unknown Rx traMADoL [Ultram 50 MG tab] 50 mg PO Q6HR PRN #10 tablet 01/08/20 Unknown Rx ED Physical Exam - General Limitations: No Limitations, Physical Limitation General appearance: alert, in no apparent distress, obese - Head Head exam: Present: atraumatic, normocephalic - Eye Eye exam: Present: normal appearance. Absent: scleral icterus - ENT ENT exam: Present: mucous membranes moist, other (Mild erythema anterior pillar) - Neck Neck exam: Present: normal inspection. Absent: tenderness, meningismus - Respiratory Respiratory exam: Present: normal lung sounds bilaterally. Absent: respiratory distress - Cardiovascular Cardiovascular Exam: Present: normal rhythm, tachycardia. Absent: systolic murmur, diastolic murmur, rubs, gallop - GI/Abdominal GI/Abdominal exam: Present: soft, normal bowel sounds. Absent: distended, tenderness, guarding, rebound - Extremities Exam Extremities exam: Present: normal inspection - Back Exam Back exam: Present: normal inspection - Neurological Exam Neurological exam: Present: alert, oriented X3, CN II-XII intact. Absent: motor sensory deficit - Psychiatric Psychiatric exam: Present: normal affect, normal mood - Skin Skin exam: Present: warm, dry, intact, normal color. Absent: rash ED Course Vital Signs 01/18/20 07:19 Temperature 100.2 F H Pulse Rate 117 H Respiratory 20 Rate Blood Pressure 142/93 O2 Sat by Pulse 96 Oximetry - Reevaluation(s) Reevaluation #1: Discussed with infectious disease specialist Dr. Calabrese. She agrees with COVID testing. Hospitalist to order for recent yovani. 01/18/20 10:38 ED Medical Decision Making - Lab Data Result diagrams: 01/18/20 08:02 01/18/20 08:01 Laboratory Results - last 24 hr 01/18/20 01/18/20 01/18/20 08:00 08:00 08:01 WBC RBC Hgb Hct MCV MCH MCHC RDW Plt Count Lymph % (Auto) [place] % (Auto) Eos % (Auto) Baso % (Auto) Lymph # Wake # Eos # Baso # Seg Neutrophils % Seg Neutrophils # PT 13.0 INR 0.97 APTT 32.2 D-Dimer 305.37 H Sodium Potassium Chloride Carbon Dioxide Anion Gap BUN Creatinine Estimated GFR BUN/Creatinine Ratio Glucose Lactic Acid Calcium Transferrin 259 Total Bilirubin Direct Bilirubin AST ALT Alkaline Phosphatase Lactate Dehydrogenase 143 Total Creatine Kinase CK-MB (CK-2) CK-MB (CK-2) Rel Index Troponin T NT-Pro-B Natriuret Pep 55.11 Total Protein Albumin Albumin/Globulin Ratio 01/18/20 01/18/20 01/18/20 08:01 08:02 08:02 WBC 5.6 RBC 4.01 Hgb 10.8 Hct 32.7 MCV 82 MCH 27 L MCHC 33 RDW 14.8 Plt Count 339 Lymph % (Auto) 19.0 [place] % (Auto) 6.7 Eos % (Auto) 0.3 Baso % (Auto) 0.7 Lymph # 1.1 L Wake # 0.4 Eos # 0.0 Baso # 0.0 Seg Neutrophils % 73.3 H Seg Neutrophils # 4.1 PT INR APTT D-Dimer Sodium 134 L Potassium 3.4 L Chloride 92.9 L Carbon Dioxide 28 Anion Gap 17 BUN 7 Creatinine 0.9 Estimated GFR > 60 BUN/Creatinine Ratio 8 Glucose 114 H Lactic Acid 1.40 Calcium 9.1 Transferrin Total Bilirubin Direct Bilirubin AST ALT Alkaline Phosphatase Lactate Dehydrogenase Total Creatine Kinase CK-MB (CK-2) CK-MB (CK-2) Rel Index Troponin T NT-Pro-B Natriuret Pep Total Protein Albumin Albumin/Globulin Ratio 01/18/20 01/18/20 08:02 08:27 WBC RBC Hgb Hct MCV MCH MCHC RDW Plt Count Lymph % (Auto) [place] % (Auto) Eos % (Auto) Baso % (Auto) Lymph # Wake # Eos # Baso # Seg Neutrophils % Seg Neutrophils # PT INR APTT D-Dimer Sodium Potassium Chloride Carbon Dioxide Anion Gap BUN Creatinine Estimated GFR BUN/Creatinine Ratio Glucose Lactic Acid Calcium Transferrin Total Bilirubin 0.20 Direct Bilirubin < 0.2 AST 17 ALT 13 Alkaline Phosphatase 95 Lactate Dehydrogenase Total Creatine Kinase 84 CK-MB (CK-2) < 1.0 CK-MB (CK-2) Rel Index 1.1 Troponin T < 0.010 NT-Pro-B Natriuret Pep Total Protein 7.6 Albumin 4.0 Albumin/Globulin Ratio 1.1 - Radiology Data interpreted by me: IMPRESSION: 1. New onset bibasilar pneumonia Critical care attestation.: If time is entered above; I have spent that time in minutes in the direct care of this critically ill patient, excluding procedure time. ED Disposition Clinical Impression: Bilateral pneumonia Qualifiers: Pneumonia type: due to unspecified organism Lung location: lower lobe of lung Qualified Code(s): J18.9 - Pneumonia, unspecified organism Disposition: OP ADMIT IP TO THIS HOSP Is pt being admited?: Yes Does the pt Need Aspirin: Yes Condition: Stable Instructions: Bacterial Pneumonia (ED) Referrals: PRIMARY CARE, [Primary Care Provider] - 3-5 Days Time of Disposition: 10:39
[2020-01-18] MEDS ORDERED: SODIUM CHLORIDE 0.9% 1000 ML 1,000 ML ONE (08:03)
--- NOTE | 2020-01-18 08:32 | XRay Report ---
CHEST 1 VIEW 01/18/2020 7:24 AM INDICATION / CLINICAL INFORMATION: possible Sepsis. COMPARISON: Chest x-ray 12/02/2019 FINDINGS: SUPPORT DEVICES: None. HEART / MEDIASTINUM: No significant abnormality. LUNGS / PLEURA: Airspace consolidation has developed within the right lower lobe since prior study. T here is also some mild streaky parenchymal disease within the left lower lung field. No pneumothorax. ADDITIONAL FINDINGS: No significant additional findings. IMPRESSION: 1. New onset bibasilar pneumonia Signer Name: mOi Caceres MD Signed: 01/18/2020 8:28 AM Workstation Name: [id number]
[2020-01-18 08:57] LABS: Basophils % (Auto) 0.7 % (0.0-1.8); Eosinophils % (Auto) 0.3 % (0.0-4.3); Hematocrit 32.7 % (30.3-42.9); Hemoglobin 10.8 gm/dl (10.1-14.3); Lymphocytes # (Auto) 1.1 K/mm3 (1.2-5.4); Mean Corpuscular HGB Conc 33 % (30-34); Mean Corpuscular Volume 82 fl (79-97); Monocytes # (Auto) 0.4 K/mm3 (0.0-0.8); Monocytes % (Auto) 6.7 % (0.0-7.3); Platelet Count 339 K/mm3 (140-440); Red Blood Count 4.01 M/mm3 (3.65-5.03); Red Cell Distribution Width 14.8 % (13.2-15.2)
[2020-01-18 09:11] LABS: BUN/Creatinine Ratio 8; Blood Urea Nitrogen 7 mg/dL (7-17); Calcium 9.1 mg/dL (8.4-10.2); Hemolysis Index 1
[2020-01-18 09:18] LABS: Alanine Aminotransferase 13 units/L (7-56)
[2020-01-18] MEDS ORDERED: ACETAMINOPHEN 325 MG TAB ONE (09:22)
[2020-01-18 09:24] LABS: Bilirubin,Direct < 0.2 mg/dL (0-0.2)
[2020-01-18 09:24] LABS: Creatine Kinase MB < 1.0 ng/mL (0.0-4.0)
[2020-01-18] MEDS ORDERED: ACETAMINOPHEN 325 MG TAB PO ONE (09:25)
[2020-01-18 09:27] LABS: Partial Thromboplastin Time 32.2 Sec. (24.2-36.6)
[2020-01-18 09:31] LABS: INR 0.97 (0.87-1.13)
[2020-01-18] MEDS ORDERED: cefTRIAXone/NS 1 GM/50 ML 1 GM/50 ML BAG IV ONE ×2 (10:06→12:24)
[2020-01-18] MEDS ORDERED: AZITHROMYCIN 500 MG in SODIUM CHLORIDE 0.9% 250ML 250 ML IV ONE (10:30)
[2020-01-18 12:01] LABS: Bilirubin,Urine NEG (Negative); Blood,Urine NEG (Negative); Color,Urine Straw (Yellow); Protein,Urine <15 mg/dL mg/dL (Negative); RBC,Urine < 1.0 /HPF (0.0-6.0); Urobilinogen,Urine < 2.0 mg/dL (<2.0); WBC,Urine < 1.0 /HPF (0.0-6.0)
[2020-01-18] MEDS ORDERED: DEXTROSE 50% IN WATER (25GM) 50 ML SYRINGE IV PRN (15:09)
--- NOTE | 2020-01-18 15:30 | History and Physical Report ---
History of Present Illness Date of examination: 01/18/20 Date of admission: 01/18/20 10:30 Chief complaint: Fever History of present illness: Patient is a 44-year-old AA woman with a plethora of co-morbidites listed in her smartphone including Bipolar, seizure disorder, MDD, anxiety, morbid obesity with JOE, asthma, hypothyroidism, type 2 DM with gastroparesis, neuropathy, SLE, migraines headaches, fibromyalgia, carpal tunnel sydrome, patella femoral pain chronic pain syndrome, syncope, Endometrosis, CKD stage III, TIA, angina and costochondrtitis who presents to [facility] ER intermittent fever of 102.1F, chills, myalgias, sore throat and fatique associated with nonproductive cough and diffuse achy intermittent chest pains associate with cough which started about 3-4 days prior to arrival. She denies any knowledge of COVID-19 exposure. PMH: as hpi PSH: 4 surgeries including benign breast biopsy, Laparotomy for scar tissue, rectal surgery, msk surgery SH: denies tobacco/alcohol/illicit drug abuse FH: Hypertension, Diabetes Mellitus, no Lupus, no COVID-19 ROS: Constitutional: denies: fever ENT: +sore throat or neck pain Respiratory: denies: cough, -shortness of breath Cardiovascular: +chest pain Endocrine: denies unexplained weight loss or gain +fevers Gastrointestinal: denies: abdominal pain, nausea Genitourinary: denies: dysuria Rectal: denies no incontinence, no bleeding, no itching, no discharge Musculoskeletal: denies swelling, myaglia, +muscle weakness Skin: denies: rash Neurological: denies severe headaches, history of migraines Hematological/Lymphatic: denies: easy bleeding or easy bruising Allergic/Immunologic: no urticaria, no allergic rhinitis, no anaphylaxis Psych: denies sadness or hopelessness, SI/HI Medications and Allergies Allergies Allergy/AdvReac Type Severity Reaction Status Date / Time aspirin Allergy Unknown Verified 04/16/19 11:58 butorphanol tartrate Allergy Seizure Verified 01/20/18 07:51 [From Stadol] latex Allergy Hives Verified 01/20/18 07:51 NSAIDS (Non-Steroidal Allergy Unknown Verified 04/16/19 11:58 Anti-Inflamma Home Medications Medication Instructions Recorded Confirmed Last Taken Type Linaclotide [Linzess] 290 mcg PO DAILY 04/07/19 06/10/1919 History Liothyronine Sodium [Cytomel] 5 mcg PO DAILY 04/07/19 06/10/19 06/10/19 History Lurasidone HCl [Latuda] 120 mg PO QDAY 04/07/19 06/10/19 06/10/19 History Meclizine [Antivert] 25 mg PO TID PRN 04/07/19 06/10/19 06/10/19 History Metoprolol [Lopressor TAB] 50 mg PO DAILY 04/07/19 06/10/19 06/10/19 History Topiramate [Qudexy Xr] 1 tab PO DAILY 04/07/19 06/10/19 06/10/19 History clonazePAM [Klonopin] 1 mg PO DAILY 04/07/19 06/10/19 06/10/19 History Fluticasone/Salmeterol [Advair 1 puff IH BID 04/16/19 06/10/19 06/10/19 History Diskus 250-50 mcg] Levothyroxine [Synthroid] 300 mcg PO QDAY 04/16/19 06/10/19 06/10/19 History Losartan [Cozaar] 100 mg PO QDAY 04/16/19 06/10/19 06/10/19 History Lurasidone HCl [Latuda] 120 mg PO QDAY 04/16/19 06/10/19 06/10/19 History Meclizine [Antivert] 25 mg PO TID PRN 04/16/19 06/10/19 06/10/19 History Metoprolol Xl [Metoprolol 50 mg PO QDAY 04/16/19 06/10/19 06/10/19 History SUCCINATE ER TAB] Topiramate [Topamax] 200 mg PO QDAY 04/16/19 06/10/19 06/10/19 History Trazodone HCl 150 mg PO QDAY 04/16/19 06/10/19 06/10/19 History diphenhydrAMINE [Benadryl CAP] 50 mg PO QDAY 04/16/19 06/10/19 06/10/19 History hydroCHLOROthiazide [HCTZ] 25 mg PO QDAY 04/16/19 06/10/19 06/10/19 History Dicyclomine [Bentyl] 10 mg PO QID PRN #20 capsule 04/26/19 06/10/19 06/10/19 Rx Potassium Chloride [K-Dur] 10 meq PO QDAY #7 tablet 05/01/19 06/10/19 06/10/19 Rx clonazePAM [KlonoPIN] 1 mg PO DAILY #10 tablet 05/01/19 06/10/19 06/10/19 Rx Acetaminophen [Acetaminophen TAB] 1,000 mg PO Q6HR PRN #60 tablet 06/01/19 06/10/19 06/10/19 Rx HYDROcodone/APAP 5-325 [Foster 1 each PO Q6HR PRN #12 tablet 06/01/19 06/10/19 06/10/19 Rx 5-325 mg TAB] Acetaminophen [Acetaminophen 8 650 mg PO Q8H PRN #20 tablet.er 12/02/19 Unknown Rx Hour] Cyclobenzaprine [Flexeril 10 MG 10 mg PO QHS PRN #10 tablet 12/02/19 Unknown Rx TAB] Acetaminophen [Tylenol] 650 mg PO Q8HR PRN #20 capsule 01/08/20 Unknown Rx traMADoL [Ultram 50 MG tab] 50 mg PO Q6HR PRN #10 tablet 01/08/20 Unknown Rx Active Meds: Active Medications Dextrose (D50w (25gm) Syringe) 50 ml IV Q30MIN PRN; Protocol PRN Reason: Hypoglycemia Insulin Human Lispro (Humalog) 0 unit SUB-Q Q12H RAVEN; Protocol Exam - Physical Exam Narrative exam: Gen: WDWN, morbid obese, NAD, Awake, Alert, Orientated x 3 HEENT: NCAT, EOMI, PERRL, OP Clear Neck: supple, no adenopathy, no thyromegaly, no JVD CVS/Heart: regular tachycardia, normal S1S2, pulses present bilaterally Chest/Lungs: diminished bs bilaterally, Symmetrical chest expansion, good air entry bilaterally GI/Abdomen: soft, NTND, good bowel sounds, no guarding or rebound /Bladder: no suprapubic tenderness, no CVA or paraspinal tenderness Extermity/Skin: no c/c/e, no obvious rash MSK: FROM x 4 Neuro: CN 2-12 grossly intact, no new focal deficits Psych: calm - Constitutional Vitals: Temp Pulse Resp BP Pulse Ox 99.9 F H 97 H 18 119/69 93 04/25/20 12:55 01/18/20 12:55 01/18/20 12:55 01/18/20 12:55 01/18/20 12:55 LEO score - Leo Score Age > 65: (0) No Aspirin use within the Past 7 Days: (0) No 3 or more CAD Risk Factors: (0) No 2 or more Angina events in past 24 hrs: (0) No Known CAD with more than 50% Stenosis: (0) No Elevated Cardiac Markers: (0) No ST Deviation Greater than 0.5mm: (0) No LEO Score: 0 Results - Labs CBC & Chem 7: 01/18/20 08:02 01/18/20 08:01 Labs: Laboratory Last Values WBC 5.6 K/mm3 (4.5-11.0) 01/18/20 08:02 RBC 4.01 M/mm3 (3.65-5.03) 01/18/20 08:02 Hgb 10.8 gm/dl (10.1-14.3) 01/18/20 08:02 Hct 32.7 % (30.3-42.9) 01/18/20 08:02 MCV 82 fl (79-97) 01/18/20 08:02 MCH 27 pg (28-32) L 01/18/20 08:02 MCHC 33 % (30-34) 01/18/20 08:02 RDW 14.8 % (13.2-15.2) 01/18/20 08:02 Plt Count 339 K/mm3 (140-440) 01/18/20 08:02 Lymph % (Auto) 19.0 % (13.4-35.0) 01/18/20 08:02 [place] % (Auto) 6.7 % (0.0-7.3) 01/18/20 08:02 Eos % (Auto) 0.3 % (0.0-4.3) 01/18/20 08:02 Baso % (Auto) 0.7 % (0.0-1.8) 01/18/20 08:02 Lymph # 1.1 K/mm3 (1.2-5.4) L 01/18/20 08:02 [place] # 0.4 K/mm3 (0.0-0.8) 01/18/20 08:02 Eos # 0.0 K/mm3 (0.0-0.4) 01/18/20 08:02 Baso # 0.0 K/mm3 (0.0-0.1) 01/18/20 08:02 Seg Neutrophils % 73.3 % (40.0-70.0) H 01/18/20 08:02 Seg Neutrophils # 4.1 K/mm3 (1.8-7.7) 01/18/20 08:02 PT 13.0 Sec. (12.2-14.9) 01/18/20 08:01 INR 0.97 (0.87-1.13) 01/18/20 08:01 APTT 32.2 Sec. (24.2-36.6) 01/18/20 08:01 D-Dimer 305.37 ng/mlDDU (0-234) H 01/18/20 08:01 VBG pH 7.473 (7.320-7.420) H 01/18/20 08:01 Sodium 134 mmol/L (137-145) L 01/18/20 08:01 Potassium 3.4 mmol/L (3.6-5.0) L 01/18/20 08:01 Chloride 92.9 mmol/L (98-107) L 01/18/20 08:01 Carbon Dioxide 28 mmol/L (22-30) 01/18/20 08:01 Anion Gap 17 mmol/L 01/18/20 08:01 BUN 7 mg/dL (7-17) 01/18/20 08:01 Creatinine 0.9 mg/dL (0.7-1.2) 01/18/20 08:01 Estimated GFR > 60 ml/min 01/18/20 08:01 BUN/Creatinine Ratio 8 % 01/18/20 08:01 Glucose 114 mg/dL (65-100) H 01/18/20 08:01 Lactic Acid 1.40 mmol/L (0.7-2.0) 01/18/20 08:02 Calcium 9.1 mg/dL (8.4-10.2) 01/18/20 08:01 Transferrin 259 mg/dl (192-382) 01/18/20 08:00 Total Bilirubin 0.20 mg/dL (0.1-1.2) 01/18/20 08:02 Direct Bilirubin < 0.2 mg/dL (0-0.2) 01/18/20 08:02 AST 17 units/L (5-40) 01/18/20 08:02 ALT 13 units/L (7-56) 01/18/20 08:02 Alkaline Phosphatase 95 units/L (35-129) 01/18/20 08:02 Lactate Dehydrogenase 143 units/L (91-180) 01/18/20 08:00 Total Creatine Kinase 84 units/L (30-135) 01/18/20 08:27 CK-MB (CK-2) < 1.0 ng/mL (0.0-4.0) 01/18/20 08: CK-MB (CK-2) Rel Index 1.1 (0-4) 01/18/20 08:27 Troponin T < 0.010 ng/mL (0.00-0.029) 01/18/20 08:27 NT-Pro-B Natriuret Pep 55.11 pg/mL (0-450) 01/18/20 08:00 Total Protein 7.6 g/dL (6.3-8.2) 01/18/20 08:02 Albumin 4.0 g/dL (3.9-5) 01/18/20 08:02 Albumin/Globulin Ratio 1.1 % 01/18/20 08:02 Urine Color Straw (Yellow) 01/18/20 10:59 Urine Turbidity Clear (Clear) 01/18/20 10:59 Urine pH 6.0 (5.0-7.0) 01/18/20 10:59 Ur Specific Gamaliel 1.005 (1.003-1.030) 01/18/20 10:59 Urine Protein <15 mg/dl mg/dL (Negative) 01/18/20 10:59 Urine Glucose (UA) Neg mg/dL (Negative) 01/18/20 10:59 Urine Ketones Neg mg/dL (Negative) 01/18/20 10:59 Urine Blood Neg (Negative) 01/18/20 10:59 Urine Nitrite Neg (Negative) 01/18/20 10:59 Urine Bilirubin Neg (Negative) 01/18/20 10:59 Urine Urobilinogen < 2.0 mg/dL (<2.0) 01/18/20 10:59 Ur Leukocyte Esterase Neg (Negative) 01/18/20 10:59 Urine WBC (Auto) < 1.0 /HPF (0.0-6.0) 01/18/20 10:59 Urine RBC (Auto) < 1.0 /HPF (0.0-6.0) 01/18/20 10:59 U Epithel Cells (Auto) 1.0 /HPF (0-13.0) 01/18/20 10:59 Influenza A (Rapid) Negative (Negative) 01/18/20 09:27 Influenza B (Rapid) Negative (Negative) 01/18/20 09:27 Microbiology: Microbiology 01/18/20 08:01 Peripheral/Venous Blood Culture - Preliminary Culture in Progress 01/18/20 08:01 Peripheral/Venous Blood Culture - Preliminary Culture in Progress Assessment and Plan Assessment and plan: Patient is a 44-year-old AA woman with a plethora of co-morbidites listed in her smartphone including Bipolar, seizure disorder, MDD, anxiety, morbid obesity with JOE, asthma, hypothyroidism, type 2 DM with gastroparesis, neuropathy, SLE, migraines headaches, fibromyalgia, carpal tunnel sydrome, patella femoral pain chronic pain syndrome, syncope, Endometrosis, CKD stage III, TIA, angina and costochondrtitis who presents to [facility] ER intermittent fever of 102.1F, chills, myalgias, sore throat and fatique associated with nonproductive cough and diffuse achy intermittent chest pains associate with cough which started about 3-4 days prior to arrival. She denies any knowledge of COVID-19 exposure. * pCXR Impression: New onset bibasilar pneumonia Sepsis due to bilateral pneumonia: get blood cultures and treat with sepsis protocol Bibasilar pneumonia suspected due to COVID: treat with [id number] protocol, treat with IV rocephin and azithromycin PUI COVID-19: ID notified, ok for testing, I ordered PCR for coronavirus, QTc 450, order COVID-19 protocol Hyponatremia, hyperglycemia: monitor bmp Hypokalemia: replete and monitor bmp Type 2 DM: resume home medication, order SSI but limit accucheck to twice daily due to COVID pandemic DVT ppx: sq lovenox
[2020-01-18] MEDS ORDERED: ONDANSETRON 4 MG/2 ML INJ IV PRN (15:31)
[2020-01-18] MEDS ORDERED: ACETAMINOPHEN 325 MG TAB PO PRN (15:31)
[2020-01-18] MEDS ORDERED: POTASSIUM CHLORIDE ER 20 MEQ TAB PO ONE ×2 (15:31→21:00)
[2020-01-18] MEDS ORDERED: POLYETHYLENE GLYCOL 3350 17 GM POWDER PO PRN (15:31)
[2020-01-18] MEDS ORDERED: ALBUTEROL 8.5 GM INHALATION IH PRN (15:34)
[2020-01-18] MEDS ORDERED: INSULIN LISPRO 100 UNIT/ML SUB-Q SCH (16:00)
[2020-01-18] MEDS: ENOXAPARIN 40 MG/0.4 ML INJ SUB-Q SCH (22:06)
[2020-01-18] MEDS: INSULIN LISPRO 100 UNIT/ML SUB-Q SCH (22:07)
[2020-01-18] MEDS: oxyCODONE 5 MG TAB PO PRN (22:08)
[2020-01-19] MEDS: INSULIN LISPRO 100 UNIT/ML SUB-Q SCH ×4 (07:30→21:54)
--- NOTE | 2020-01-19 07:41 | Progress Note ---
Assessment and Plan Assessment and plan: Patient is a 44-year-old AA woman with a plethora of co-morbidites listed in her smartphone including Bipolar, seizure disorder, MDD, anxiety, morbid obesity with JOE, asthma, hypothyroidism, type 2 DM with gastroparesis, neuropathy, SLE, migraines headaches, fibromyalgia, carpal tunnel sydrome, patella femoral pain chronic pain syndrome, syncope, Endometrosis, CKD stage III, TIA, angina and costochondrtitis who presents to [facility] ER intermittent fever of 102.1F, chills, myalgias, sore throat and fatique associated with nonproductive cough and diffuse achy intermittent chest pains associate with cough which started about 3-4 days prior to arrival. She denies any knowledge of COVID-19 exposure. * pCXR Impression: New onset bibasilar pneumonia Sepsis due to bilateral pneumonia: get blood cultures and treat with sepsis protocol Bibasilar pneumonia suspected due to COVID: treat with COViD-19 protocol, treat with IV rocephin and azithromycin PUI COVID-19: ID notified, ok for testing, I ordered PCR for coronavirus, QTc 450, order COVID-19 protocol Hyponatremia, hyperglycemia: monitor bmp Hypokalemia: replete and monitor bmp Type 2 DM: resume home medication, order SSI but limit accucheck to twice daily due to COVID pandemic DVT ppx: sq lovenox 01/19/20: COVID-19 pending so far, uncollected, hopefully will have results later on today or tomorrow. Inflammatory markers tomorrow, ID consult pending. So far relative normal D-Dimer/LDH, high CRP and Procalcitonin still pending but received by lab. History Interval history: Patient was seen and examined. Follow-up on current diagnosis of Sepsis PNA. Overnight uneventful as no events directly reported to me. Patient denies any nausea/vomiting or severe headaches. Imaging, nursing note, chart, labs and old chart reviewed. Discussed with patient. Hospitalist Physical - Physical exam Narrative exam: Gen: WDWN, morbid obese, NAD, Awake, Alert, Orientated x 3 HEENT: NCAT, EOMI, PERRL, OP Clear Neck: supple, no adenopathy, no thyromegaly, no JVD CVS/Heart: regular tachycardia, normal S1S2, pulses present bilaterally Chest/Lungs: diminished bs bilaterally, Symmetrical chest expansion, good air entry bilaterally GI/Abdomen: soft, NTND, good bowel sounds, no guarding or rebound /Bladder: no suprapubic tenderness, no CVA or paraspinal tenderness Extermity/Skin: no c/c/e, no obvious rash MSK: FROM x 4 Neuro: CN 2-12 grossly intact, no new focal deficits Psych: calm - Constitutional Vitals: Temp Pulse Resp BP Pulse Ox 99.6 F 95 H 20 156/94 95 01/19/20 05:01 01/19/20 05:01 01/19/20 05:01 01/19/20 05:01 01/19/20 05:01 LEO score - Leo Score Age > 65: (0) No Aspirin use within the Past 7 Days: (0) No 3 or more CAD Risk Factors: (0) No 2 or more Angina events in past 24 hrs: (0) No Known CAD with more than 50% Stenosis: (0) No Elevated Cardiac Markers: (0) No ST Deviation Greater than 0.5mm: (0) No LEO Score: 0 Results - Labs CBC & Chem 7: 01/18/20 08:02 01/18/20 08:01 Labs: Laboratory Last Values WBC 5.6 K/mm3 (4.5-11.0) 01/18/20 08:02 RBC 4.01 M/mm3 (3.65-5.03) 01/18/20 08:02 Hgb 10.8 gm/dl (10.1-14.3) 01/18/20 08:02 Hct 32.7 % (30.3-42.9) 01/18/20 08:02 MCV 82 fl (79-97) 01/18/20 08:02 MCH 27 pg (28-32) L 01/18/20 08:02 MCHC 33 % (30-34) 01/18/20 08:02 RDW 14.8 % (13.2-15.2) 01/18/20 08:02 Plt Count 339 K/mm3 (140-440) 01/18/20 08:02 Lymph % (Auto) 19.0 % (13.4-35.0) 01/18/20 08:02 [place] % (Auto) 6.7 % (0.0-7.3) 01/18/20 08:02 Eos % (Auto) 0.3 % (0.0-4.3) 01/18/20 08:02 Baso % (Auto) 0.7 % (0.0-1.8) 01/18/20 08:02 Lymph # 1.1 K/mm3 (1.2-5.4) L 01/18/20 08:02 [place] # 0.4 K/mm3 (0.0-0.8) 01/18/20 08:02 Eos # 0.0 K/mm3 (0.0-0.4) 01/18/20 08:02 Baso # 0.0 K/mm3 (0.0-0.1) 01/18/20 08:02 Seg Neutrophils % 73.3 % (40.0-70.0) H 01/18/20 08:02 Seg Neutrophils # 4.1 K/mm3 (1.8-7.7) 01/18/20 08:02 PT 13.0 Sec. (12.2-14.9) 01/18/20 08:01 INR 0.97 (0.87-1.13) 01/18/20 08:01 APTT 32.2 Sec. (24.2-36.6) 01/18/20 08:01 D-Dimer 305.37 ng/mlDDU (0-234) H 01/18/20 08:01 VBG pH 7.473 (7.320-7.420) H 01/18/20 08:01 Sodium 134 mmol/L (137-145) L 01/18/20 08:01 Potassium 3.4 mmol/L (3.6-5.0) L 01/18/20 08:01 Chloride 92.9 mmol/L (98-107) L 01/18/20 08:01 Carbon Dioxide 28 mmol/L (22-30) 01/18/20 08:01 Anion Gap 17 mmol/L 01/18/20 08:01 BUN 7 mg/dL (7-17) 01/18/20 08:01 Creatinine 0.9 mg/dL (0.7-1.2) 01/18/20 08:01 Estimated GFR > 60 ml/min 01/18/20 08:01 BUN/Creatinine Ratio 8 % 01/18/20 08:01 Glucose 114 mg/dL (65-100) H 01/18/20 08:01 POC Glucose 109 (70-105) H 01/18/20 20:49 Lactic Acid 1.40 mmol/L (0.7-2.0) 01/18/20 08:02 Calcium 9.1 mg/dL (8.4-10.2) 01/18/20 08:01 Transferrin 259 mg/dl (192-382) 01/18/20 08:00 Ferritin 212.2 ng/mL (13.0-400.0) 01/18/20 20:17 Total Bilirubin 0.20 mg/dL (0.1-1.2) 01/18/20 08:02 Direct Bilirubin < 0.2 mg/dL (0-0.2) 01/18/20 08:02 AST 17 units/L (5-40) 01/18/20 08:02 ALT 13 units/L (7-56) 01/18/20 08:02 Alkaline Phosphatase 95 units/L (35-129) 01/18/20 08:02 Lactate Dehydrogenase 143 units/L (91-180) 01/18/20 08:00 Total Creatine Kinase 84 units/L (30-135) 01/18/20 08:27 CK-MB (CK-2) < 1.0 ng/mL (0.0-4.0) 01/18/20 08: CK-MB (CK-2) Rel Index 1.1 (0-4) 01/18/20 08:27 Troponin T < 0.010 ng/mL (0.00-0.029) 01/18/20 08:27 C-Reactive Protein 2.60 mg/dL (0.00-1.30) H 01/18/20 20:17 NT-Pro-B Natriuret Pep 55.11 pg/mL (0-450) 01/18/20 08:00 Total Protein 7.6 g/dL (6.3-8.2) 01/18/20 08:02 Albumin 4.0 g/dL (3.9-5) 01/18/20 08:02 Albumin/Globulin Ratio 1.1 % 01/18/20 08:02 Urine Color Straw (Yellow) 01/18/20 10:59 Urine Turbidity Clear (Clear) 01/18/20 10:59 Urine pH 6.0 (5.0-7.0) 01/18/20 10:59 Ur Specific [place] 1.005 (1.003-1.030) 01/18/20 10:59 Urine Protein <15 mg/dl mg/dL (Negative) 01/18/20 10:59 Urine Glucose (UA) Neg mg/dL (Negative) 01/18/20 10:59 Urine Ketones Neg mg/dL (Negative) 01/18/20 10:59 Urine Blood Neg (Negative) 01/18/20 10:59 Urine Nitrite Neg (Negative) 01/18/20 10:59 Urine Bilirubin Neg (Negative) 01/18/20 10:59 Urine Urobilinogen < 2.0 mg/dL (<2.0) 01/18/20 10:59 Ur Leukocyte Esterase Neg (Negative) 01/18/20 10:59 Urine WBC (Auto) < 1.0 /HPF (0.0-6.0) 01/18/20 10:59 Urine RBC (Auto) < 1.0 /HPF (0.0-6.0) 01/18/20 10:59 U Epithel Cells (Auto) 1.0 /HPF (0-13.0) 01/18/20 10:59 Influenza A (Rapid) Negative (Negative) 01/18/20 09:27 Influenza B (Rapid) Negative (Negative) 01/18/20 09:27 Microbiology: Microbiology 01/18/20 08:01 Peripheral/Venous Blood Culture - Preliminary Culture in Progress 01/18/20 08:01 Peripheral/Venous Blood Culture - Preliminary Culture in Progress Temple/IV: Voiding Method Toilet IV Catheter Type [Right INT / Saline Lock Forearm] Active Medications - Current Medications Current Medications: Generic Name Dose Route Start Last Admin Trade Name Freq PRN Reason Stop Dose Admin Acetaminophen 650 mg 01/18/20 15:31 01/18/20 17:13 Tylenol PO 650 mg Q6H PRN Administration Non Cardiac Pain or Temp>100.5 Albuterol 2 puff 01/18/20 15:34 Proair IH Q4HRT PRN Shortness Of Breath Dextrose 50 ml 01/18/20 15:09 D50w (25gm) Syringe IV Q30MIN PRN Hypoglycemia Protocol Enoxaparin Sodium 40 mg 01/18/20 22:00 01/18/20 22:06 Enoxaparin SUB-Q 40 mg QDAY@2200 RAVEN Administration Azithromycin 500 mg/ Sodium 250 mls @ 250 mls/hr 01/19/20 10:00 Chloride IV Q24HR [facility] Protocol Ceftriaxone Sodium 1 gm in 50 mls @ 100 mls/hr 01/19/20 10:00 Rocephin/Ns 1 Gm/50 Ml IV Q24HR [facility] Protocol Insulin Human Lispro 0 unit 01/18/20 22:00 01/18/20 22:07 Humalog SUB-Q Not Given ACHS [facility] Protocol Ondansetron HCl 4 mg 01/18/20 15:31 01/18/20 17:14 Zofran IV 4 mg Q4H PRN Administration Nausea And Vomiting Oxycodone HCl 5 mg 01/18/20 21:33 01/18/20 22:08 Roxicodone PO 5 mg Q4H PRN Administration Pain, Moderate (4-6) Pantoprazole Sodium 40 mg 01/19/20 10:00 Protonix PO QDAY [facility] Polyethylene Glycol 17 gm 01/18/20 15:31 Miralax 3350 PO QDAY PRN Constipation
[2020-01-19] MEDS: AZITHROMYCIN 250 MG TAB PO SCH (09:02)
[2020-01-19] MEDS: PANTOPRAZOLE 40 MG TAB PO SCH (09:03)
[2020-01-19] MEDS: cefTRIAXone/NS 1 GM/50 ML 1 GM/50 ML BAG IV SCH (09:03)
[2020-01-19] MEDS ORDERED: AZITHROMYCIN 500 MG in SODIUM CHLORIDE 0.9% 250ML 250 ML IV SCH (10:00)
--- NOTE | 2020-01-19 13:58 | Consultation ---
History of Present Illness - Reason for Consult Consult date: 01/19/20 COVID pneumonia Requesting physician: NAINA SALCIDO - History of Present Illness 44 years old female with morbid obesity, bipolar disorder, seizures, obstructive sleep apnea, diabetes type 2, CKD stage III, gastroparesis, lupus, migraines, previous syncope, admitted on 01/18/2020 due to a week history of fever at 102.1, malaise, chills, body aches and dry cough. Patient reports generalized weakne ss. Patient lives in [place] with her parents and her brother. She is disabled. She has been keeping the quarantine however she has gone to the grocery store. On arrival, temperature 100.7, HR 117, RR 20, O2 sat 91% on room air, BP 142/93. Initial WBC 5.6. Hemoglobin 10.8. D-dimer 305. Ferritin 212. LDH 143. CRP 2.6. Influenza testing negative. COVID positive. Blood culture 01/18/2020 no growth so far. Chest x-ray showed bibasilar pneumonia. Review of Systems: positive in bold print General: + fever, +chills, +malaise Cutaneous: rash, pruritus Head: headaches or injury Eyes: changes in vision, eye pain, double vision Ears: ear pain, ear discharge, ringing or hearing loss Nose: nose bleeding, stuffiness Mouth & throat: bleeding gums, horseness, no dental problems, or swollen glands Neck: no pain, node enlargement/lumps, tyroid enlargement or tenderness Respiratory: +SOB, +cough, +PURCELL, wheezing, sputum, hemoptysis, pleuritic chest pain Cardiovascular: chest pain, leg edema, cyanosis, PURCELL, orthopnea Musculoskeletal: edema Gastrointestinal: nausea, vomiting, hematemesis, diarrhea, constipation, melena, bright red blood in stools, fecal incontinence, jaundice Genitourinary/Reproductive: frequent urination, dysuria, hematuria, incontinence Neurogical: seizures, headaches, weakness, paresthesias, loss of speech or vision; memory loss, vertigo, tremors, numbness Psychiatric: stable mood; excessive anxiety, sadness or moodiness Medications and Allergies Allergies Allergy/AdvReac Type Severity Reaction Status Date / Time aspirin Allergy Unknown Verified 04/16/19 11:58 butorphanol tartrate Allergy Seizure Verified 01/20/18 07:51 [From Stadol] latex Allergy Hives Verified 01/20/18 07:51 NSAIDS (Non-Steroidal Allergy Unknown Verified 04/16/19 11:58 Anti-Inflamma Home Medications Medication Instructions Recorded Confirmed Last Taken Type Linaclotide [Linzess] 290 mcg PO DAILY 04/07/19 01/18/20 01/17/20 History Liothyronine Sodium [Cytomel] 5 mcg PO DAILY 04/07/19 01/18/20 01/17/20 History Lurasidone HCl [Latuda] 120 mg PO QDAY 04/07/19 01/18/20 01/17/20 History Meclizine [Antivert] 25 mg PO TID PRN 04/07/19 01/18/20 01/17/20 History Metoprolol [Lopressor TAB] 50 mg PO DAILY 04/07/19 01/18/20 01/17/20 History Topiramate [Qudexy Xr] 1 tab PO DAILY 04/07/19 01/18/20 01/17/20 History clonazePAM [Klonopin] 1 mg PO DAILY 04/07/19 01/18/20 01/17/20 History 50 mg Fluticasone/Salmeterol [Advair 1 puff IH BID 04/16/19 01/18/20 01/17/20 History Diskus 250-50 mcg] Levothyroxine [Synthroid] 300 mcg PO QDAY 04/16/19 01/18/20 01/17/20 History Losartan [Cozaar] 100 mg PO QDAY 04/16/19 01/18/20 01/17/20 History Lurasidone HCl [Latuda] 120 mg PO QDAY 04/16/19 01/18/20 01/18/20 16:36 History Meclizine [Antivert] 25 mg PO TID PRN 04/16/19 01/18/20 01/17/20 History Metoprolol Xl [Metoprolol 50 mg PO QDAY 04/16/19 01/18/20 01/17/20 History SUCCINATE ER TAB] Topiramate [Topamax] 200 mg PO QDAY 04/16/19 01/18/20 06/10/19 History Trazodone HCl 150 mg PO QDAY 04/16/19 01/18/20 01/17/20 History diphenhydrAMINE [Benadryl CAP] 50 mg PO QDAY 04/16/19 01/18/20 01/17/20 06:00 History 50 mg hydroCHLOROthiazide [HCTZ] 25 mg PO QDAY 04/16/19 01/18/20 01/17/20 History 50 mg Dicyclomine [Bentyl] 10 mg PO QID PRN #20 capsule 04/26/19 01/18/20 01/17/20 Rx Potassium Chloride [K-Dur] 10 meq PO QDAY #7 tablet 05/01/19 01/18/20 01/17/20 Rx clonazePAM [KlonoPIN] 1 mg PO DAILY #10 tablet 05/01/19 01/18/20 01/17/20 Rx 50 mg Acetaminophen [Acetaminophen TAB] 1,000 mg PO Q6HR PRN #60 tablet 06/01/19 01/18/20 01/17/20 Rx HYDROcodone/APAP 5-325 [[place] 1 each PO Q6HR PRN #12 tablet 06/01/19 01/18/20 01/17/20 Rx 5-325 mg TAB] Acetaminophen [Acetaminophen 8 650 mg PO Q8H PRN #20 tablet.er 12/02/19 01/18/20 01/17/20 Rx Hour] Cyclobenzaprine [Flexeril 10 MG 10 mg PO QHS PRN #10 tablet 12/02/19 01/18/20 01/17/20 Rx TAB] Acetaminophen [Tylenol] 650 mg PO Q8HR PRN #20 capsule 01/08/20 01/18/20 01/17/20 Rx traMADoL [Ultram 50 MG tab] 50 mg PO Q6HR PRN #10 tablet 01/08/20 01/18/20 01/17/20 Rx 50 mg Active Meds: Active Medications Acetaminophen (Tylenol) 650 mg PO Q6H PRN PRN Reason: Non Cardiac Pain or Temp>100.5 Last Admin: 01/18/20 17:13 Dose: 650 mg Documented by: Albuterol (Proair) 2 puff IH Q4HRT PRN PRN Reason: Shortness Of Breath Azithromycin (Zithromax) 500 mg PO QDAY RAVEN Last Admin: 01/19/20 09:02 Dose: 500 mg Documented by: Dextrose (D50w (25gm) Syringe) 50 ml IV Q30MIN PRN; Protocol PRN Reason: Hypoglycemia Enoxaparin Sodium (Enoxaparin) 40 mg SUB-Q QDAY@2200 RAVEN Last Admin: 01/18/20 22:06 Dose: 40 mg Documented by: Ceftriaxone Sodium (Rocephin/Ns 1 Gm/50 Ml) 1 gm in 50 mls @ 100 mls/hr IV Q24HR [facility]; Protocol Last Admin: 01/19/20 09:03 Dose: 100 mls/hr Documented by: Insulin Human Lispro (Humalog) 0 unit SUB-Q ACHS [facility]; Protocol Last Admin: 01/19/20 11:30 Dose: Not Given Documented by: Ondansetron HCl (Zofran) 4 mg IV Q4H PRN PRN Reason: Nausea And Vomiting Last Admin: 01/18/20 17:14 Dose: 4 mg Documented by: Oxycodone HCl (Roxicodone) 5 mg PO Q4H PRN PRN Reason: Pain, Moderate (4-6) Last Admin: 01/18/20 22:08 Dose: 5 mg Documented by: Pantoprazole Sodium (Protonix) 40 mg PO QDAY [facility] Last Admin: 01/19/20 09:03 Dose: 40 mg Documented by: Polyethylene Glycol (Miralax 3350) 17 gm PO QDAY PRN PRN Reason: Constipation Physical Examination - Physical Exam Narrative exam: General appearance: Alert in NAD morbidly obese Eyes: limited due to conservation of PPE HENT: Atraumatic; oropharynx limited due to lack of PPE Lungs: diminished BS jf CV: RRR Abdomen: limited due to conservation of PPE Extremities: limited due to conservation of PPE Skin: No rash. Psych: Appropriate affect, alert and oriented to person, place and time. Neuro: alert and oriented x 3. Moving all extermities - Constitutional Vitals: Vital Signs Temp Pulse Resp BP Pulse Ox 98.5 F 101 H 24 130/90 96 01/19/20 11:47 01/19/20 11:47 01/19/20 11:47 01/19/20 11:47 01/19/20 11:47 Temperature -Last 24 Hours Temperature 98.5 F Temperature 99.6 F Temperature 100.3 F Temperature 98.4 F Results - Labs CBC & Chem 7: 01/18/20 08:02 01/18/20 08:01 Labs: Abnormal lab results 01/18/20 01/18/20 01/18/20 Range/Units 17:25 20:17 20:49 POC Glucose 136 H 109 H (70-105) C-Reactive Protein 2.60 H (0.00-1.30) mg/dL Coronavirus (PCR) (Negative) 01/19/20 01/19/20 01/19/20 Range/Units 08:04 09:02 11:58 POC Glucose 112 H 122 H (70-105) C-Reactive Protein (0.00-1.30) mg/dL Coronavirus (PCR) Positive A (Negative) Assessment and Plan Cultures: Influenza testing negative. COVID positive. Blood culture 01/18/2020 no growth so far. Assessment: 44 years old female with morbid obesity, bipolar disorder, seizures, obstructive sleep apnea, diabetes type 2, CKD stage III, gastroparesis, lupus, migraines, previous syncope, admitted on 01/18/2020 due to a week history of fever at 102.1, malaise, chills, body aches and dry cough: #Sepsis: Present on admission with fever, tachycardia, likely due to bilateral pneumonia. #COVID pneumonia: Chest x-ray showed bibasilar pneumonia. Inflammatory markers are not elevated except CRP which is mildly elevated. Patient does have multiple risk factor for complicated COVID. Noted mild hypoxemia on admission. Currently on 2 L nasal cannula oxygen. #Bilateral pneumonia: high suspicion for severe COVID pneumonia. Transmission likely from community. COVID test pending/positive. Risk for ARDS is high/moderate/low. High risk for cytokine release syndrome. Inflamatory markers (ferritin, LDH, DDimer, CRP) #Acute hypoxemic respiratory failure: on NC O2, HFO2, venturi mask, intubated #Elevated LFTs: from COVID #NORMA Recommendations: Continuos pulse ox and exercise oximetry Continue COVID isolation precautions per [facility] protocol Check serial Ferritin, LDH, D-Dimer, CRP every 48 hour Continue ceftriaxone 2 gm IV q day and azithromycin 500 mg IV q day to cover CAP Start vitamin C 500 mg twice daily Discharge home in 1-2 days if inflammatory markers are down trending and O2 sats not dropping with activity (exercise oxymetry required before discharge) Will follow Sydni Fontaine MD Infectious Diseases [employer] [facility] M [phone] O [phone]
[2020-01-19] MEDS: ASCORBIC ACID 250 MG TAB PO SCH ×2 (16:00→21:54)
[2020-01-19] MEDS: oxyCODONE 5 MG TAB PO PRN ×2 (17:34→22:06)
[2020-01-19] MEDS: ENOXAPARIN 40 MG/0.4 ML INJ SUB-Q SCH (21:54)
[2020-01-20] MEDS: INSULIN LISPRO 100 UNIT/ML SUB-Q SCH ×4 (07:30→21:30)
[2020-01-20 07:40] LABS: C-Reactive Protein 1.4 mg/dL (0.00-1.30)
[2020-01-20] MEDS: oxyCODONE 5 MG TAB PO PRN ×3 (10:00→21:29)
[2020-01-20] MEDS: cefTRIAXone/NS 1 GM/50 ML 1 GM/50 ML BAG IV SCH (10:00)
--- NOTE | 2020-01-20 11:33 | Progress Note ---
Assessment and Plan Assessment and plan: Patient is a 44-year-old AA woman with a plethora of co-morbidites listed in her smartphone including Bipolar, seizure disorder, MDD, anxiety, morbid obesity with JOE, asthma, hypothyroidism, type 2 DM with gastroparesis, neuropathy, SLE, migraines headaches, fibromyalgia, carpal tunnel sydrome, patella femoral pain chronic pain syndrome, syncope, Endometrosis, CKD stage III, TIA, angina and costochondrtitis who presents [facility] intermittent fever of 102.1F, chills, myalgias, sore throat and fatique associated with nonproductive cough and diffuse achy intermittent chest pains associate with cough which started about 3-4 days prior to arrival. She denies any knowledge of COVID-19 exposure. * pCXR Impression: New onset bibasilar pneumonia Sepsis due to bilateral pneumonia: get blood cultures and treat with sepsis protocol Bibasilar pneumonia suspected due to COVID: treat with COViD-19 protocol, treat with IV rocephin and azithromycin + COVID-19: ID notified, ok for testing, I ordered PCR for coronavirus, QTc 450, order COVID-19 protocol Acute hypoxic respiratory failure due to COVID-19, poa Hyponatremia, hyperglycemia: monitor bmp Hypokalemia: replete and monitor bmp Type 2 DM: resume home medication, order SSI but limit accucheck to twice daily due to COVID pandemic DVT ppx: sq lovenox 01/19/20: COVID-19 pending so far, uncollected, hopefully will have results later on today or tomorrow. Inflammatory markers tomorrow, ID consult pending. So far relative normal D-Dimer/LDH, high CRP and Procalcitonin still pending but received by lab. 01/20/20: COVID-19 POSITIVE. Still on 2 L NC, trying to wean. Hopefully in next day or 2 can d/c home without O2 History Interval history: Patient was seen and examined. Follow-up on current diagnosis of Sepsis PNA. Overnight uneventful as no events directly reported to me. Patient denies any nausea/vomiting or severe headaches. Imaging, nursing note, chart, labs and old chart reviewed. Discussed with patient. Hospitalist Physical - Physical exam Narrative exam: Gen: WDWN, morbid obese, NAD, Awake, Alert, Orientated x 3 HEENT: NCAT, EOMI, PERRL, OP Clear Neck: supple, no adenopathy, no thyromegaly, no JVD CVS/Heart: regular tachycardia, normal S1S2, pulses present bilaterally Chest/Lungs: diminished bs bilaterally, Symmetrical chest expansion, good air entry bilaterally GI/Abdomen: soft, NTND, good bowel sounds, no guarding or rebound /Bladder: no suprapubic tenderness, no CVA or paraspinal tenderness Extermity/Skin: no c/c/e, no obvious rash MSK: FROM x 4 Neuro: CN 2-12 grossly intact, no new focal deficits Psych: calm - Constitutional Vitals: Temp Pulse Resp BP Pulse Ox 98.6 F 98 H 16 135/87 94 01/20/20 04:35 01/20/20 04:35 01/20/20 04:35 01/20/20 04:35 01/20/20 08:35 LEO score - Leo Score Age > 65: (0) No Aspirin use within the Past 7 Days: (0) No 3 or more CAD Risk Factors: (0) No 2 or more Angina events in past 24 hrs: (0) No Known CAD with more than 50% Stenosis: (0) No Elevated Cardiac Markers: (0) No ST Deviation Greater than 0.5mm: (0) No LEO Score: 0 Results - Labs CBC & Chem 7: 01/18/20 08:02 01/18/20 08:01 Labs: Laboratory Last Values WBC 5.6 K/mm3 (4.5-11.0) 01/18/20 08:02 RBC 4.01 M/mm3 (3.65-5.03) 01/18/20 08:02 Hgb 10.8 gm/dl (10.1-14.3) 01/18/20 08:02 Hct 32.7 % (30.3-42.9) 01/18/20 08:02 MCV 82 fl (79-97) 01/18/20 08:02 MCH 27 pg (28-32) L 01/18/20 08:02 MCHC 33 % (30-34) 01/18/20 08:02 RDW 14.8 % (13.2-15.2) 01/18/20 08:02 Plt Count 339 K/mm3 (140-440) 01/18/20 08:02 Lymph % (Auto) 19.0 % (13.4-35.0) 01/18/20 08:02 [place] % (Auto) 6.7 % (0.0-7.3) 01/18/20 08:02 Eos % (Auto) 0.3 % (0.0-4.3) 01/18/20 08:02 Baso % (Auto) 0.7 % (0.0-1.8) 01/18/20 08:02 Lymph # 1.1 K/mm3 (1.2-5.4) L 01/18/20 08:02 [place]ard # 0.4 K/mm3 (0.0-0.8) 01/18/20 08:02 Eos # 0.0 K/mm3 (0.0-0.4) 01/18/20 08:02 Baso # 0.0 K/mm3 (0.0-0.1) 01/18/20 08:02 Seg Neutrophils % 73.3 % (40.0-70.0) H 01/18/20 08:02 Seg Neutrophils # 4.1 K/mm3 (1.8-7.7) 01/18/20 08:02 PT 13.0 Sec. (12.2-14.9) 01/18/20 08:01 INR 0.97 (0.87-1.13) 01/18/20 08:01 APTT 32.2 Sec. (24.2-36.6) 01/18/20 08:01 D-Dimer 378.27 ng/mlDDU (0-234) H 01/20/20 05:32 VBG pH 7.473 (7.320-7.420) H 01/18/20 08:01 Sodium 134 mmol/L (137-145) L 01/18/20 08:01 Potassium 3.4 mmol/L (3.6-5.0) L 01/18/20 08:01 Chloride 92.9 mmol/L (98-107) L 01/18/20 08:01 Carbon Dioxide 28 mmol/L (22-30) 01/18/20 08:01 Anion Gap 17 mmol/L 01/18/20 08:01 BUN 7 mg/dL (7-17) 01/18/20 08:01 Creatinine 0.9 mg/dL (0.7-1.2) 01/18/20 08:01 Estimated GFR > 60 ml/min 01/18/20 08:01 BUN/Creatinine Ratio 8 % 01/18/20 08:01 Glucose 114 mg/dL (65-100) H 01/18/20 08:01 POC Glucose 164 (70-105) H 01/20/20 11:23 Lactic Acid 1.40 mmol/L (0.7-2.0) 01/18/20 08:02 Calcium 9.1 mg/dL (8.4-10.2) 01/18/20 08:01 Transferrin 259 mg/dl (192-382) 01/18/20 08:00 Ferritin 322.0 ng/mL (13.0-400.0) 01/20/20 05:32 Total Bilirubin 0.20 mg/dL (0.1-1.2) 01/18/20 08:02 Direct Bilirubin < 0.2 mg/dL (0-0.2) 01/18/20 08:02 AST 17 units/L (5-40) 01/18/20 08:02 ALT 13 units/L (7-56) 01/18/20 08:02 Alkaline Phosphatase 95 units/L (35-129) 01/18/20 08:02 Lactate Dehydrogenase 206 units/L (91-180) H 01/20/20 05:32 Total Creatine Kinase 84 units/L (30-135) 01/18/20 08:27 CK-MB (CK-2) < 1.0 ng/mL (0.0-4.0) 01/18/20 08:27 CK-MB (CK-2) Rel Index 1.1 (0-4) 01/18/20 08:27 Troponin T < 0.010 ng/mL (0.00-0.029) 01/18/20 08:27 C-Reactive Protein 1.40 mg/dL (0.00-1.30) H 01/20/20 05:32 NT-Pro-B Natriuret Pep 55.11 pg/mL (0-450) 01/18/20 08:00 Total Protein 7.6 g/dL (6.3-8.2) 01/18/20 08:02 Albumin 4.0 g/dL (3.9-5) 01/18/20 08:02 Albumin/Globulin Ratio 1.1 % 01/18/20 08:02 Procalcitonin < 0.05 ng/mL (<0.15) 01/18/20 20:17 Urine Color Straw (Yellow) 01/18/20 10:59 Urine Turbidity Clear (Clear) 01/18/20 10:59 Urine pH 6.0 (5.0-7.0) 01/18/20 10:59 Ur Specific [place] 1.005 (1.003-1.030) 01/18/20 10:59 Urine Protein <15 mg/dl mg/dL (Negative) 01/18/20 10:59 Urine Glucose (UA) Neg mg/dL (Negative) 01/18/20 10:59 Urine Ketones Neg mg/dL (Negative) 01/18/20 10:59 Urine Blood Neg (Negative) 01/18/20 10:59 Urine Nitrite Neg (Negative) 01/18/20 10:59 Urine Bilirubin Neg (Negative) 01/18/20 10:59 Urine Urobilinogen < 2.0 mg/dL (<2.0) 01/18/20 10:59 Ur Leukocyte Esterase Neg (Negative) 01/18/20 10:59 Urine WBC (Auto) < 1.0 /HPF (0.0-6.0) 01/18/20 10:59 Urine RBC (Auto) < 1.0 /HPF (0.0-6.0) 01/18/20 10:59 U Epithel Cells (Auto) 1.0 /HPF (0-13.0) 01/18/20 10:59 Coronavirus (PCR) Positive (Negative) A 01/19/20 09:02 Influenza A (Rapid) Negative (Negative) 01/18/20 09:27 Influenza B (Rapid) Negative (Negative) 01/18/20 09:27 Microbiology: Microbiology 01/18/20 08:01 Peripheral/Venous Blood Culture - Preliminary NO GROWTH AFTER 24 HOURS 01/18/20 08:01 Peripheral/Venous Blood Culture - Preliminary NO GROWTH AFTER 24 HOURS Temple/IV: Voiding Method Toilet IV Catheter Type [Right INT / Saline Lock Forearm] Active Medications - Current Medications Current Medications: Generic Name Dose Route Start Last Admin Trade Name Freq PRN Reason Stop Dose Admin Acetaminophen 650 mg 01/18/20 15:31 01/18/20 17:13 Tylenol PO 650 mg Q6H PRN Administration Non Cardiac Pain or Temp>100.5 Albuterol 2 puff 01/18/20 15:34 Proair IH Q4HRT PRN Shortness Of Breath Ascorbic Acid 500 mg 01/19/20 16:00 01/19/20 21:54 Vitamin C PO 500 mg BID RAVEN Administration Azithromycin 500 mg 01/19/20 10:00 01/19/20 09:02 Zithromax PO 01/22/20 10:01 500 mg QDAY RAVEN Administration Dextrose 50 ml 01/18/20 15:09 D50w (25gm) Syringe IV Q30MIN PRN Hypoglycemia Protocol Enoxaparin Sodium 40 mg 01/18/20 22:00 01/19/20 21:54 Enoxaparin SUB-Q 40 mg QDAY@2200 RAVEN Administration Ceftriaxone Sodium 1 gm in 50 mls @ 100 mls/hr 01/19/20 10:00 01/19/20 09:03 Rocephin/Ns 1 Gm/50 Ml IV 100 mls/hr Q24HR RAVEN Administration Protocol Insulin Human Lispro 0 unit 01/18/20 22:00 01/20/20 07:30 Humalog SUB-Q 2 unit ACHS RAVEN Administration Protocol Ondansetron HCl 4 mg 01/18/20 15:31 01/18/20 17:14 Zofran IV 4 mg Q4H PRN Administration Nausea And Vomiting Oxycodone HCl 5 mg 01/18/20 21:33 01/19/20 22:06 Roxicodone PO 5 mg Q4H PRN Administration Pain, Moderate (4-6) Pantoprazole Sodium 40 mg 01/19/20 10:00 01/19/20 09:03 Protonix PO 40 mg QDAY RAVEN Administration Polyethylene Glycol 17 gm 01/18/20 15:31 Miralax 3350 PO QDAY PRN Constipation
[2020-01-20] MEDS ORDERED: LIP THERAPY VASELINE TP PRN (12:41)
--- NOTE | 2020-01-20 13:41 | Progress Note ---
Assessment and Plan Cultures: Influenza testing negative. COVID positive. Blood culture 01/18/2020 no growth so far. Assessment: 44 years old female with morbid obesity, bipolar disorder, seizures, obstructive sleep apnea, diabetes type 2, CKD stage III, gastroparesis, lupus, migraines, previous syncope, admitted on 01/18/2020 due to a week history of fever at 102.1, malaise, chills, body aches and dry cough: #Sepsis: Present on admission with fever, tachycardia, likely due to bilateral pneumonia. #COVID pneumonia: Chest x-ray showed bibasilar pneumonia. Inflammatory markers are not elevated except CRP which is mildly elevated. Patient does have multiple risk factor for complicated COVID. Noted mild hypoxemia on admission. #Bilateral pneumonia: high suspicion for severe COVID pneumonia. Transmission likely from community. COVID test pending/positive. Risk for ARDS is high/moderate/low. High risk for cytokine release syndrome. Inflamatory markers (ferritin, LDH, DDimer, CRP) #Acute hypoxemic respiratory failure: #Elevated LFTs: from COVID #NORMA Recommendations: Continuos pulse ox and exercise oximetry Continue COVID isolation precautions per [facility] protocol Check serial Ferritin, LDH, D-Dimer, CRP every 48 hour Continue ceftriaxone 2 gm IV q day and azithromycin 500 mg IV q day to cover CAP Inflammatory markers slightly elevated. Continue to monitor. Assuming O2 sats stable with normal improving/O2 requirements can consider discharge. Rohith Siddiqui MD [facility] ([facility]) M: [phone] O: [phone] F: [phone] Subjective Date of service: 01/20/20 Interval history: Afebrile, no other acute concerns. Objective - Exam Narrative Exam: Physical exam reviewed in chart but deferred secondary to PPE conservation protocol. - Constitutional Vitals: Vital Signs Temp Pulse Resp BP Pulse Ox 97.0 F L 99 H 20 119/79 91 01/20/20 11:10 01/20/20 11:10 01/20/20 11:10 01/20/20 11:10 01/20/20 11:10 Temperature -Last 24 Hours Temperature 97.0 F Temperature 98.6 F Temperature 98.1 F Temperature 98.9 F - Labs CBC & Chem 7: 01/18/20 08:02 01/18/20 08:01 Labs: Abnormal lab results 01/19/20 01/19/20 01/20/20 Range/Units 17:01 21:16 05:32 D-Dimer 378.27 H (0-234) ng/mlDDU POC Glucose 107 H 115 H (70-105) Lactate Dehydrogenase (91-180) units/L C-Reactive Protein (0.00-1.30) mg/dL 01/20/20 01/20/20 01/20/20 Range/Units 05:32 08:06 11:23 D-Dimer (0-234) ng/mlDDU POC Glucose 164 H 164 H (70-105) Lactate Dehydrogenase 206 H (91-180) units/L C-Reactive Protein 1.40 H (0.00-1.30) mg/dL
[2020-01-20] MEDS: PANTOPRAZOLE 40 MG TAB PO SCH (16:24)
[2020-01-20] MEDS: ASCORBIC ACID 250 MG TAB PO SCH ×2 (16:25→21:29)
[2020-01-20] MEDS: AZITHROMYCIN 250 MG TAB PO SCH (16:26)
[2020-01-20] MEDS: ENOXAPARIN 40 MG/0.4 ML INJ SUB-Q SCH (21:28)
[2020-01-21] MEDS ORDERED: TEMAZEPAM 15 MG CAP PO PRN (00:10)
[2020-01-21 06:24] VITALS: BP 137/92
[2020-01-21] MEDS: INSULIN LISPRO 100 UNIT/ML SUB-Q SCH ×2 (09:23→11:30)
[2020-01-21] MEDS: PANTOPRAZOLE 40 MG TAB PO SCH (09:24)
[2020-01-21] MEDS: cefTRIAXone/NS 1 GM/50 ML 1 GM/50 ML BAG IV SCH (09:24)
[2020-01-21] MEDS: ASCORBIC ACID 250 MG TAB PO SCH (09:26)
[2020-01-21] MEDS: AZITHROMYCIN 250 MG TAB PO SCH (09:26)
[2020-01-21] MEDS: oxyCODONE 5 MG TAB PO PRN (09:49)
[2020-01-21] MEDS ORDERED: cefTRIAXone/NS 2 GM/100 ML 2 GM/100 ML BAG IV SCH (10:00)
--- NOTE | 2020-01-21 11:18 | Discharge Summary ---
Providers - Providers Date of Admission: 01/19/20 07:00 Attending physician: ELVIRA POP MD 01/18/20 10:33 Consult to Physician [CONS] Urgent Comment: Consulting Provider: TIM PALACIOS Physician Instructions: Reason For Exam: B/L PNA consider COVID Primary care physician: [employer] Hospitalization Reason for admission: Shortness of breath Condition: Stable Hospital course: Patient is a 44-year-old AA woman with a plethora of co-morbidites listed in her smartphone including Bipolar, seizure disorder, MDD, anxiety, morbid obesity with JOE, asthma, hypothyroidism, type 2 DM with gastroparesis, neuropathy, SLE, migraines headaches, fibromyalgia, carpal tunnel sydrome, patella femoral pain chronic pain syndrome, syncope, Endometrosis, CKD stage III, TIA, angina and costochondrtitis who presents to [facility] ER intermittent fever of 102.1F, chills, myalgias, sore throat and fatique associated with nonproductive cough and diffuse achy intermittent chest pains associate with cough which started about 3-4 days prior to arrival. She denies any knowledge of COVID-19 exposure. * pCXR Impression: New onset bibasilar pneumonia 01/19/20: COVID-19 pending so far, uncollected, hopefully will have results later on today or tomorrow. Inflammatory markers tomorrow, ID consult pending. So far relative normal D-Dimer/LDH, high CRP and Procalcitonin still pending but received by lab. 01/20/20: COVID-19 POSITIVE. Still on 2 L NC, trying to wean. Hopefully in next day or 2 can d/c home without O2 01/20: Patient continues to clinically improve no evidence of bacterial sepsis was noted. Sepsis likely secondary to viral COVID-19. Antibiotics has been discontinued patient does have chronic back pain secondary to her prior comorbidities of fibromyalgia. She does follow a pain physician and will follow them on outpatient basis. She is clinically stable for discharge she does not require oxygen based on oxygen saturation with ambulation. I have extensive discussion with the patient Sepsis due to bilateral pneumonia Bibasilar pneumonia suspected due to COVID: + COVID-19 Acute hypoxic respiratory failure due to COVID-19, poa Hyponatremia Chronic back pain secondary to fibromyalgia Hypokalemia Type 2 DM Disposition: TO HOME OR SELFCARE Time spent for discharge: 35 mins Core Measure Documentation - Palliative Care Palliative Care/ Comfort Measures: Not Applicable - Core Measures Any of the following diagnoses?: none Exam - Physical Exam Narrative exam: Narrative exam: Gen: WDWN, morbid obese, NAD, Awake, Alert, Orientated x 3 HEENT: NCAT, EOMI, PERRL, OP Clear Neck: supple, no adenopathy, no thyromegaly, no JVD CVS/Heart: regular, normal S1S2, pulses present bilaterally Chest/Lungs: diminished bs bilaterally, Symmetrical chest expansion, good air entry bilaterally GI/Abdomen: soft, NTND, good bowel sounds, no guarding or rebound /Bladder: no suprapubic tenderness, no CVA or paraspinal tenderness Extermity/Skin: no c/c/e, no obvious rash MSK: FROM x 4 Neuro: CN 2-12 grossly intact, no new focal deficits Psych: calm - Constitutional Vitals: Temp Pulse Resp BP Pulse Ox 97.8 F 103 H 20 137/92 95 01/21/20 05:47 01/21/20 05:47 01/21/20 05:47 01/21/20 05:47 01/21/20 09:21 Plan Activity: advance as tolerated, fall precautions Diet: low fat Special Instructions: record daily weights (encourage weight loss), record daily BP diary Additional Instructions: Continue with self isolation until seen by PCP and repeat testing is negative. Improtant for family to track how patient got the virus for better self isolation. Recommended that family gets tested and patient not comingle until she is negative unless family is also positive. Continue with mask Follow up with: PRIMARY CARE, [Primary Care Provider] - 3-5 Days Prescriptions: Famotidine [Acid Controller] 20 mg PO DAILY #30 tablet Azithromycin [Zithromax TAB] 500 mg PO QDAY #3 tablet
--- NOTE | 2020-01-21 12:53 | Progress Note ---
Assessment and Plan Cultures: Influenza testing negative. COVID positive. Blood culture 01/18/2020 no growth so far. Assessment: 44 years old female with morbid obesity, bipolar disorder, seizures, obstructive sleep apnea, diabetes type 2, CKD stage III, gastroparesis, lupus, migraines, previous syncope, admitted on 01/18/2020 due to a week history of fever at 102.1, malaise, chills, body aches and dry cough: #Sepsis: Present on admission with fever, tachycardia, likely due to bilateral pneumonia. #COVID pneumonia: Chest x-ray showed bibasilar pneumonia. Inflammatory markers are not elevated except CRP which is mildly elevated. Patient does have multiple risk factor for complicated COVID. Noted mild hypoxemia on admission. #Bilateral pneumonia: high suspicion for severe COVID pneumonia. Transmission likely from community. COVID test pending/positive. Risk for ARDS is high/moderate/low. High risk for cytokine release syndrome. Inflamatory markers (ferritin, LDH, DDimer, CRP) #Acute hypoxemic respiratory failure: #Elevated LFTs: from COVID #NORMA Recommendations: Continuos pulse ox and exercise oximetry Continue COVID isolation precautions per [facility] protocol Check serial Ferritin, LDH, D-Dimer, CRP every 48 hour Stopped antibiotics. Okay for discharge. Rohith Siddiqui MD [facility] ([facility]) M: [phone] O: [phone] F: [phone] Subjective Date of service: 01/21/20 Interval history: Afebrile, no other acute concerns. On room air, saturating well. Objective - Exam Narrative Exam: Physical exam reviewed in chart but deferred secondary to PPE conservation protocol. - Constitutional Vitals: Vital Signs Temp Pulse Resp BP Pulse Ox 97.8 F 103 H 20 137/92 95 01/21/20 05:47 01/21/20 05:47 01/21/20 05:47 01/21/20 05:47 01/21/20 09:21 Temperature -Last 24 Hours Temperature 97.8 F Temperature 99.1 F Temperature 98.5 F - Labs CBC & Chem 7: 01/18/20 08:02 01/18/20 08:01 Labs: Abnormal lab results 01/20/20 01/20/20 01/21/20 Range/Units 16:52 21:39 08:11 POC Glucose 172 H 111 H 153 H (70-105)
[2020-01-22] MEDS ORDERED: cefTRIAXone/NS 2 GM/100 ML 2 GM/100 ML BAG IV SCH (10:00)
== END 2020-01-21 14:30 | disposition home or self-care (01) | DRG 871 ==
LOC: ED 07:14 → 3A 10:30 → OBSVTOIN 01-19 07:00
PROVIDERS: ADMIT Internal Medicine; ATTEND Internal Medicine
DX: A41.89 Other specified sepsis (principal); U07.1 COVID-19; J12.89 Other viral pneumonia; J96.01 Acute respiratory failure with hypoxia; E87.1 Hypo-osmolality and hyponatremia; N17.9 Acute kidney failure, unspecified; Z68.43 Body mass index [BMI] 50.0-59.9, adult; E11.22 Type 2 diabetes mellitus with diabetic chronic kidney disease; I12.9 Hypertensive chronic kidney disease with stage 1 through stage 4 chronic kidney disease, or unspecified chronic kidney disease; N18.3 Chronic kidney disease, stage 3 (moderate); G43.909 Migraine, unspecified, not intractable, without status migrainosus; F41.8 Other specified anxiety disorders; J45.909 Unspecified asthma, uncomplicated; M17.10 Unilateral primary osteoarthritis, unspecified knee; F31.9 Bipolar disorder, unspecified; E03.9 Hypothyroidism, unspecified; E78.00 Pure hypercholesterolemia, unspecified; G40.909 Epilepsy, unspecified, not intractable, without status epilepticus; E87.6 Hypokalemia; E11.43 Type 2 diabetes mellitus with diabetic autonomic (poly)neuropathy; E66.01 Morbid (severe) obesity due to excess calories; Z86.73 Personal history of transient ischemic attack (TIA), and cerebral infarction without residual deficits; G56.00 Carpal tunnel syndrome, unspecified upper limb; M79.7 Fibromyalgia; K31.84 Gastroparesis; G89.4 Chronic pain syndrome; Z83.3 Family history of diabetes mellitus; Z82.49 Family history of ischemic heart disease and other diseases of the circulatory system; Z88.6 Allergy status to analgesic agent; Z91.040 Latex allergy status; Z87.442 Personal history of urinary calculi
CPT/HCPCS: 36415; 71045; 80048; 80076; 81001; 82140; 82550; 82553; 82728; 82805; 82962; 83615; 83880; 84145; 84466; 84484; 85025; 85379; 85610; 85730; 86140; 87040; 87400; 93005; 94640; 94760; G0378; J0456; J0696; J1650; J1815; J2405; J7030; J7050; U0003

== ENCOUNTER 2020-05-25 16:53 | Emergency (ER) | payer MEDICARE ==
[2020-05-25 17:26] VITALS: BP 139/74
--- NOTE | 2020-05-25 19:09 | Emergency Department Report ---
Chief Complaint: Earache Stated Complaint: EAR PAIN/THROAT SWOLLEN Time Seen by Provider: 05/25/20 19:08 - HPI History of Present Illness: This 45-year-old female presents for right ear pain x1 day patient describes pain as throbbing in nature localized to the right ear. Patient states that pain radiates down her tooth from the ears. She denies any ear trauma, foreign body in the ear, recent swimming. - ROS Review of Systems: As noted in HPI - Exam Vital Signs: Vital Signs 05/25/20 17:24 Temperature 98.3 F Pulse Rate 100 H Respiratory 18 Rate Blood Pressure 139/74 [Right] O2 Sat by Pulse 99 Oximetry Physical Exam: GENERAL: Alert and oriented x3, no apparent distress, Normal Gait, atraumatic. HEAD: Head is normocephalic and a-traumatic. EYES: Extra ocular muscles are intact. Pupils are equal, round, and reactive to light and accommodation. EARS: symetrical, atraumatic, tender tragus and pinna, ear canal clear and no cerumen, tympanic membrance non inflamed. gross auditory nml bilaterally. NOSE: Nose symetrical, Nontender,Nares appeared normal. MOUTH:Mouth is well hydrated and without lesions. Tonsils nonerythematous or swollen, Uvula midline, Tongue not elevated. Mucous membranes are moist. Posterior pharynx clear, no exudate or lesions. Patent airways. NECK: Supple. Non edematous, No carotid bruits. No lymphadenopathy or thyromegaly. No C-spine tenderness SKIN: Warm and dry, No lesions, No ulceration or induration present. MSE screening note: Focused history and physical exam performed. Due to findings the following was ordered: ED Medical Decision Making - Medical Decision Making 45-year-old female presented with otitis ED course: I discussed all findings with the patient. I discussed with patient to take antibiotics as prescribed. I discussed follow-up with the primary care physician as well as ENT Vital signs are normalized, patient is in no acute distress or respiratory distress. Patient had an uneventful ED stay ED Disposition for MSE Disposition: DC-01 TO HOME OR SELFCARE Is pt being admited?: No Does the pt Need Aspirin: No Condition: Stable Instructions: Otitis Externa (ED), Barotitis Media (ED) Additional Instructions: Make sure to follow up with the primary care physician as discussed. Take all your medications as you've been prescribed. If you have any worsening symptoms or develop new symptoms please return to ED immediately. Referrals: HIRAL SLOAN MD [Staff Physician] - 3-5 Days [facility] [Provider Group] - 3-5 Days [facility] [place] [Provider Group] - 3-5 Days [facility] [Outside] - 3-5 Days Forms: Work/School Release Form(ED) Time of Disposition: 19:31
== END 2020-05-25 19:45 | disposition home or self-care (01) ==
LOC: ED 16:53
DX: H92.01 Otalgia, right ear (principal); Z88.6 Allergy status to analgesic agent; Z91.040 Latex allergy status
CPT/HCPCS: 99282

== ENCOUNTER 2020-06-08 03:30 | Emergency (ER) | payer MEDICARE ==
[2020-06-08 06:22] LABS: Hematocrit 36.9 % (30.3-42.9); Hemoglobin 11.9 gm/dl (10.1-14.3); Mean Corpuscular HGB Conc 32 % (30-34); Mean Corpuscular Volume 86 fl (79-97); Platelet Count 479 K/mm3 (140-440); Red Blood Count 4.26 M/mm3 (3.65-5.03); Red Cell Distribution Width 13.9 % (13.2-15.2)
[2020-06-08 06:42] LABS: BUN/Creatinine Ratio 12; Blood Urea Nitrogen 11 mg/dL (7-17); Calcium 9.2 mg/dL (8.4-10.2); Hemolysis Index 6
--- NOTE | 2020-06-08 07:22 | Emergency Department Report ---
ED Chest Pain HPI - General Chief Complaint: Chest Pain Stated Complaint: CHEST PAIN/LEFT ARM/BCK PAIN Time Seen by Provider: 06/08/20 07:18 Source: patient, old records reviewed Mode of arrival: Ambulatory Limitations: No Limitations - History of Present Illness Initial Comments: 45-year-old obese female with a past medical history of self-reported TIA, diabetes, complex migraines, hypertension, bipolar, panic attack, anxiety attacks, renal sufficiency, lupus, seizures, gastroparesis, and fibromyalgia presents to the hospital complains of waking up at 1 AM with left-sided arm, upper chest, left-sided neck pain. Pain is 10/10 intensity, constant, worse with movement and palpation. No alleviating factors reported. As per previous medical record view patient has presented here in the past with muscle skeletal chest pain as well as pain weakness secondary to complex migraine. Patient does not endorse headache at this time. She denies any recent trauma. As per medical record specifically cardiology note from 04/29/2019 patient has no history of CAD. Patient had a negative stress thallium test in 2018 with no ischemia, normal LV systolic function, EF of 50 to 55% by echocardiogram. In 2016 patient had a cardiac PET scan with reports of no ischemia. Patient is under chronic pain management and takes morphine 10 mg ER twice a day. She ran out of her medication yesterday morning. Her doctor recently changed to an alternative medication that starts with the been but she has not yet filled the medication. Contrary to triage patient does not endorse shortness of breath and also denies nausea or vomiting with pain. Severity scale (0 -10): 8 - Related Data Home Medications Medication Instructions Recorded Confirmed Last Taken Linaclotide [Linzess] 290 mcg PO DAILY 04/07/19 01/18/20 01/17/20 Liothyronine Sodium [Cytomel] 5 mcg PO DAILY 04/07/19 01/18/20 01/17/20 Lurasidone HCl [Latuda] 120 mg PO QDAY 04/07/19 01/18/20 01/17/20 Meclizine [Antivert] 25 mg PO TID PRN 04/07/19 01/18/20 01/17/20 Topiramate [Qudexy Xr] 1 tab PO DAILY 04/07/19 01/18/20 01/17/20 Fluticasone/Salmeterol [Advair 1 puff IH BID 04/16/19 01/18/20 01/17/20 Diskus 250-50 mcg] Levothyroxine [Synthroid] 300 mcg PO QDAY 04/16/19 01/18/20 01/17/20 Losartan [Cozaar] 100 mg PO QDAY 04/16/19 01/18/20 01/17/20 Metoprolol Xl [Metoprolol 50 mg PO QDAY 04/16/19 01/18/20 01/17/20 SUCCINATE ER TAB] Trazodone HCl 150 mg PO QDAY 04/16/19 01/18/20 01/17/20 diphenhydrAMINE [Benadryl CAP] 50 mg PO QDAY 04/16/19 01/18/20 01/17/20 06:00 50 mg hydroCHLOROthiazide [HCTZ] 25 mg PO QDAY 04/16/19 01/18/20 01/17/20 50 mg Previous Rx's Medication Instructions Recorded Last Taken Type Dicyclomine [Bentyl] 10 mg PO QID PRN #20 capsule 04/26/19 01/17/20 Rx Potassium Chloride [K-Dur] 10 meq PO QDAY #7 tablet 05/01/19 01/17/20 Rx clonazePAM [KlonoPIN] 1 mg PO DAILY #10 tablet 05/01/19 01/17/20 Rx 50 mg HYDROcodone/APAP 5-325 [[place] 1 each PO Q6HR PRN #12 tablet 06/01/19 01/17/20 Rx 5-325 mg TAB] Acetaminophen [Acetaminophen 8 650 mg PO Q8H PRN #20 tablet.er 12/02/19 01/17/20 Rx Hour] Cyclobenzaprine [Flexeril 10 MG 10 mg PO QHS PRN #10 tablet 12/02/19 01/17/20 Rx TAB] traMADoL [Ultram 50 MG tab] 50 mg PO Q6HR PRN #10 tablet 01/08/20 01/17/20 Rx 50 mg Azithromycin [Zithromax TAB] 500 mg PO QDAY #3 tablet 01/21/20 Unknown Rx Famotidine [Acid Controller] 20 mg PO DAILY #30 tablet 01/21/20 Unknown Rx Amoxicillin [Trimox CAP] 500 mg PO Q8H #21 capsule 05/25/20 Unknown Rx Amoxicillin [Trimox CAP] 500 mg PO Q8H #21 capsule 05/25/20 Unknown Rx Butalb/Acetamin/Caff 50-325-40 1 tab PO Q8HR PRN #20 tablet 05/25/20 Unknown Rx [Fioricet] Oxycodone HCl/Acetaminophen 1 each PO Q6HR PRN #20 tablet 06/08/20 Unknown Rx [Percocet 10/325 mg] Allergies Allergy/AdvReac Type Severity Reaction Status Date / Time aspirin Allergy Unknown Verified 05/25/20 17:23 butorphanol tartrate Allergy Seizure Verified 05/25/20 17:23 [From Stadol] latex Allergy Hives Verified 05/25/20 17:23 NSAIDS (Non-Steroidal Allergy Unknown Verified 05/25/20 17:23 Anti-Inflamma Heart Score - HEART Score History: Slightly suspicious EKG: Normal Age: < 45 Risk factors: > 3 risk factors or hx of atherosclerotic disease Troponin: < normal limit HEART Score: 2 ED Review of Systems ROS: Stated complaint: CHEST PAIN/LEFT ARM/BCK PAIN Other details as noted in HPI Comment: All other systems reviewed and negative ED Past Medical Hx - Past Medical History Previous Medical History?: Yes Hx Hypertension: Yes Hx CVA: Yes (2011) Hx Heart Attack/AMI: No Hx Congestive Heart Failure: No Hx Diabetes: Yes Hx Deep Vein Thrombosis: No Hx Pulmonary Embolism: No Hx Liver Disease: No Hx Renal Disease: Yes (stage 3) Hx Sickle Cell Disease: No Hx Arthritis: No Hx Headaches / Migraines: Yes Hx Seizures: Yes Hx Kidney Stones: Yes Hx Psychiatric Treatment: Yes (Bipolar, Panic Attacks, Anxiety, MDD) Hx Asthma: No Hx COPD: No Hx Tuberculosis: No Hx Dementia: No Hx HIV: No Additional medical history: lupus, Gastroparesis, Neuropathy,. high cholesterol, Endometriosis,. bipolar, Fibromylagia, hypothyroidism. anxiety PANIC ATTACK, carpal tunnel syndrome - Surgical History Past Surgical History?: Yes Hx Coronary Stent: No Hx Open Heart Surgery: No Hx Internal Defibrillator: No Hx Cholecystectomy: No Hx Appendectomy: No Hx Breast Surgery: No Additional Surgical History: "rectal repair" after vaginal delivery, Cyst removal on back, Exploratory surgery with abdominal surgery, lump removed from right arm and right breast - Social History Smoking Status: Never Smoker - Medications Home Medications: Home Medications Medication Instructions Recorded Confirmed Last Taken Type Linaclotide [Linzess] 290 mcg PO DAILY 04/07/19 01/18/20 01/17/20 History Liothyronine Sodium [Cytomel] 5 mcg PO DAILY 04/07/19 01/18/20 01/17/20 History Lurasidone HCl [Latuda] 120 mg PO QDAY 04/07/19 01/18/20 01/17/20 History Meclizine [Antivert] 25 mg PO TID PRN 04/07/19 01/18/20 01/17/20 History Topiramate [Qudexy Xr] 1 tab PO DAILY 04/07/19 01/18/20 01/17/20 History Fluticasone/Salmeterol [Advair 1 puff IH BID 04/16/19 01/18/20 01/17/20 History Diskus 250-50 mcg] Levothyroxine [Synthroid] 300 mcg PO QDAY 04/16/19 01/18/20 01/17/20 History Losartan [Cozaar] 100 mg PO QDAY 04/16/19 01/18/20 01/17/20 History Metoprolol Xl [Metoprolol 50 mg PO QDAY 04/16/19 01/18/20 01/17/20 History SUCCINATE ER TAB] Trazodone HCl 150 mg PO QDAY 04/16/19 01/18/20 01/17/20 History diphenhydrAMINE [Benadryl CAP] 50 mg PO QDAY 04/16/19 01/18/20 01/17/20 06:00 History 50 mg hydroCHLOROthiazide [HCTZ] 25 mg PO QDAY 04/16/19 01/18/20 01/17/20 History 50 mg Dicyclomine [Bentyl] 10 mg PO QID PRN #20 capsule 04/26/19 01/18/20 01/17/20 Rx Potassium Chloride [K-Dur] 10 meq PO QDAY #7 tablet 05/01/19 01/18/20 01/17/20 Rx clonazePAM [KlonoPIN] 1 mg PO DAILY #10 tablet 05/01/19 01/18/20 01/17/20 Rx 50 mg HYDROcodone/APAP 5-325 [[place] 1 each PO Q6HR PRN #12 tablet 06/01/19 01/18/20 01/17/20 Rx 5-325 mg TAB] Acetaminophen [Acetaminophen 8 650 mg PO Q8H PRN #20 tablet.er 12/02/19 01/18/20 01/17/20 Rx Hour] Cyclobenzaprine [Flexeril 10 MG 10 mg PO QHS PRN #10 tablet 12/02/19 01/18/20 01/17/20 Rx TAB] traMADoL [Ultram 50 MG tab] 50 mg PO Q6HR PRN #10 tablet 01/08/20 01/18/20 01/17/20 Rx 50 mg Azithromycin [Zithromax TAB] 500 mg PO QDAY #3 tablet 01/21/20 Unknown Rx Famotidine [Acid Controller] 20 mg PO DAILY #30 tablet 01/21/20 Unknown Rx Amoxicillin [Trimox CAP] 500 mg PO Q8H #21 capsule 05/25/20 Unknown Rx Amoxicillin [Trimox CAP] 500 mg PO Q8H #21 capsule 05/25/20 Unknown Rx Butalb/Acetamin/Caff 50-325-40 1 tab PO Q8HR PRN #20 tablet 05/25/20 Unknown Rx [Fioricet] Oxycodone HCl/Acetaminophen 1 each PO Q6HR PRN #20 tablet 06/08/20 Unknown Rx [Percocet 10/325 mg] ED Physical Exam - General Limitations: No Limitations - Other Other exam information: General: No acute distress Head: Atraumatic Eyes: normal appearance ENT: Moist mucous membranes Neck: Normal appearance, no midline tenderness, tenderness along the left-sided trapezius muscle into the left cervix and right-sided trapezius muscle. Pain on the left trapezius muscle extends all the way down to the shoulder and is significant even to light touch. Pain extends down to the left upper chest wall Chest: Clear to auscultation bilaterally. Reproducible left upper chest wall and posterior thoracic tenderness to palpation. Tenderness also on the lateral left thoracic wall CV: Regular rate and rhythm Abdomen: Soft, normal bowel sounds, nontender, nondistended, no rebound or guarding Back: Normal inspection Extremity: Normal inspection, patient hesitant to move arm secondary to muscle skeletal pain. Tenderness to palpation of shoulder, upper arm, and to lesser extent the forearm without any warmth, erythema, or notable swelling. No calf tenderness or leg edema. Neuro: Alert O x 3, no facial asymmetry, speech clear, no gross motor sensory deficit Psych: Appropriate behavior Skin: No rash ED Course Vital Signs 06/08/20 06/08/20 06/08/20 04:01 07:34 07:37 Temperature 98.6 F Pulse Rate 116 H 107 H 108 H Respiratory 20 18 22 Rate Blood Pressure Blood Pressure 136/89 123/76 [Right] O2 Sat by Pulse 98 97 98 Oximetry 06/08/20 06/08/20 06/08/20 07:46 08:00 08:16 Temperature Pulse Rate Respiratory 16 16 Rate Blood Pressure 137/93 Blood Pressure [Right] O2 Sat by Pulse 98 Oximetry 06/08/20 06/08/20 06/08/20 08:30 09:04 09:11 Temperature Pulse Rate 116 H Respiratory 16 Rate Blood Pressure 118/64 111/59 Blood Pressure 133/74 [Right] O2 Sat by Pulse 95 97 98 Oximetry 06/08/20 13:00 Temperature Pulse Rate 113 H Respiratory Rate Blood Pressure 120/70 Blood Pressure [Right] O2 Sat by Pulse Oximetry - Reevaluation(s) Reevaluation #1: 06/08/20 12:45 Patient reports that her pain is not improved after 2 separate Dilaudid 2 mg IM doses. Patient does have some mild persistent tachycardia. She does state that she takes Synthroid for hypothyroidism, metoprolol 50 mg daily, and also takes clonazepam 0.5 mg and did not have her dose this morning. She continues to deny shortness of breath and does not have signs of hypoxia, calf tenderness, or leg edema. She was provided clonazepam and metoprolol in the ED 06/08/20 14:01 hr trending downward to 102 ÁNGEL score - Ángel Score Age > 65: (0) No Aspirin use within the Past 7 Days: (0) No 3 or more CAD Risk Factors: (0) No 2 or more Angina events in past 24 hrs: (0) No Known CAD with more than 50% Stenosis: (0) No Elevated Cardiac Markers: (0) No ST Deviation Greater than 0.5mm: (0) No ÁNGEL Score: 0 ED Medical Decision Making - Lab Data Result diagrams: 06/08/20 05:50 06/08/20 05:50 Lab Results 06/08/20 06/08/20 06/08/20 Range/Units 05:50 05:50 05:50 WBC 12.5 H (4.5-11.0) K/mm3 RBC 4.26 (3.65-5.03) M/mm3 Hgb 11.9 (10.1-14.3) gm/dl Hct 36.9 (30.3-42.9) % MCV 86 (79-97) fl MCH 28 (28-32) pg MCHC 32 (30-34) % RDW 13.9 (13.2-15.2) % Plt Count 479 H (140-440) K/mm3 Lymph # Skull Grinder Add Manual Diff Complete Total Counted 100 Seg Neuts % (Manual) 42.0 (40.0-70.0) % Band Neutrophils % 0 % Lymphocytes % (Manual) 53.0 H (13.4-35.0) % Reactive Lymphs % (Man) 0 % Monocytes % (Manual) 5.0 (0.0-7.3) % Eosinophils % (Manual) 0 (0.0-4.3) % Basophils % (Manual) 0 (0.0-1.8) % Metamyelocytes % 0 % Myelocytes % 0 % Promyelocytes % 0 % Blast Cells % 0 % Nucleated RBC % Not Reportable Seg Neutrophils # Man 5.3 (1.8-7.7) K/mm3 Band Neutrophils # 0.0 K/mm3 Lymphocytes # (Manual) 6.6 H (1.2-5.4) K/mm3 Abs React Lymphs (Man) 0.0 K/mm3 Monocytes # (Manual) 0.6 (0.0-0.8) K/mm3 Eosinophils # (Manual) 0.0 (0.0-0.4) K/mm3 Basophils # (Manual) 0.0 (0.0-0.1) K/mm3 Metamyelocytes # 0.0 K/mm3 Myelocytes # 0.0 K/mm3 Promyelocytes # 0.0 K/mm3 Blast Cells # 0.0 K/mm3 WBC Morphology Not Reportable Hypersegmented Neuts Not Reportable Hyposegmented Neuts Not Reportable Hypogranular Neuts Not Reportable Smudge Cells Not Reportable Toxic Granulation Not Reportable Toxic Vacuolation Not Reportable Dohle Bodies Not Reportable Pelger-Huet Anomaly Not Reportable Nay Rods Not Reportable Platelet Estimate Consistent w auto Clumped Platelets Not Reportable Plt Clumps, EDTA Not Reportable Large Platelets Not Reportable Giant Platelets Not Reportable Platelet Satelliting Not Reportable Plt Morphology Comment Not Reportable RBC Morphology Not Reportable Dimorphic RBCs Not Reportable Polychromasia Not Reportable Hypochromasia Not Reportable Poikilocytosis Not Reportable Anisocytosis Few Microcytosis Not Reportable Macrocytosis Not Reportable Spherocytes Not Reportable Pappenheimer Bodies Not Reportable Sickle Cells Not Reportable Target Cells Not Reportable Tear Drop Cells Not Reportable Ovalocytes Not Reportable Helmet Cells Not Reportable Villatoro-Ferris Bodies Not Reportable [place] Rings Not Reportable [place] Cells Not Reportable Bite Cells Not Reportable Crenated Cell Not Reportable Elliptocytes Not Reportable Acanthocytes (Spur) Not Reportable Rouleaux Not Reportable Hemoglobin C Crystals Not Reportable Schistocytes Not Reportable Malaria parasites Not Reportable Yash Bodies Not Reportable Hem Pathologist Commnt No Sodium 139 (137-145) mmol/L Potassium 4.4 (3.6-5.0) mmol/L Chloride 99.1 (98-107) mmol/L Carbon Dioxide 27 (22-30) mmol/L Anion Gap 17 mmol/L BUN 11 (7-17) mg/dL Creatinine 0.9 (0.6-1.2) mg/dL Estimated GFR > 60 ml/min BUN/Creatinine Ratio 12 % Glucose 140 H (65-100) mg/dL Calcium 9.2 (8.4-10.2) mg/dL Troponin T < 0.010 (0.00-0.029) ng/mL HCG, Qual Negative (Negative) 06/08/20 Range/Units 09:29 WBC (4.5-11.0) K/mm3 RBC (3.65-5.03) M/mm3 Hgb (10.1-14.3) gm/dl Hct (30.3-42.9) % MCV (79-97) fl MCH (28-32) pg MCHC (30-34) % RDW (13.2-15.2) % Plt Count (140-440) K/mm3 Lymph # Add Manual Diff Total Counted Seg Neuts % (Manual) (40.0-70.0) % Band Neutrophils % % Lymphocytes % (Manual) (13.4-35.0) % Reactive Lymphs % (Man) % Monocytes % (Manual) (0.0-7.3) % Eosinophils % (Manual) (0.0-4.3) % Basophils % (Manual) (0.0-1.8) % Metamyelocytes % % Myelocytes % % Promyelocytes % % Blast Cells % % Nucleated RBC % Seg Neutrophils # Man (1.8-7.7) K/mm3 Band Neutrophils # K/mm3 Lymphocytes # (Manual) (1.2-5.4) K/mm3 Abs React Lymphs (Man) K/mm3 Monocytes # (Manual) (0.0-0.8) K/mm3 Eosinophils # (Manual) (0.0-0.4) K/mm3 Basophils # (Manual) (0.0-0.1) K/mm3 Metamyelocytes # K/mm3 Myelocytes # K/mm3 Promyelocytes # K/mm3 Blast Cells # K/mm3 WBC Morphology Hypersegmented Neuts Hyposegmented Neuts Hypogranular Neuts Smudge Cells Toxic Granulation Toxic Vacuolation Dohle Bodies Pelger-Huet Anomaly Nay Rods Platelet Estimate Clumped Platelets Plt Clumps, EDTA Large Platelets Giant Platelets Platelet Satelliting Plt Morphology Comment RBC Morphology Dimorphic RBCs Polychromasia Hypochromasia Poikilocytosis Anisocytosis Microcytosis Macrocytosis Spherocytes Pappenheimer Bodies Sickle Cells Target Cells Tear Drop Cells Ovalocytes Helmet Cells Villatoro-Ferris Bodies [place] Rings Renea Cells Bite Cells Crenated Cell Elliptocytes Acanthocytes (Spur) Rouleaux Hemoglobin C Crystals Schistocytes Malaria parasites Yash Bodies Hem Pathologist Commnt Sodium (137-145) mmol/L Potassium (3.6-5.0) mmol/L Chloride (98-107) mmol/L Carbon Dioxide (22-30) mmol/L Anion Gap mmol/L BUN (7-17) mg/dL Creatinine (0.6-1.2) mg/dL Estimated GFR ml/min BUN/Creatinine Ratio % Glucose (65-100) mg/dL Calcium (8.4-10.2) mg/dL Troponin T < 0.010 (0.00-0.029) ng/mL HCG, Qual (Negative) - EKG Data -: EKG Interpreted by Tx EKG shows normal: sinus rhythm, ST-T waves (no stemi) Rate: tachycardia (112) - EKG Data When compared to previous EKG there are: no significant change - Radiology Data Radiology results: report reviewed CHEST 1 VIEW 06/08/2020 7:39 AM INDICATION / CLINICAL INFORMATION: Chest Pain. COMPARISON: Chest one view dated 01/18/2020. FINDINGS: SUPPORT DEVICES: None. HEART / MEDIASTINUM: No significant abnormality. LUNGS / PLEURA: The lungs are clear with elevation of the left hemidiaphragm that is unchanged. No significant pleural effusion. No pneumothorax. ADDITIONAL FINDINGS: No significant additional findings. IMPRESSION: 1. No acute abnormality of the chest. - Medical Decision Making Patient is a chronic pain patient and has been on metoprolol 50 mg extended release twice daily for a long time and states it is no longer effective. She was started on a new medication by her pain management doctor. She has not had ability to fill her newly prescribed narcotic because it is on back order at the pharmacy. Patient is presenting a reproducible musculoskeletal pain. An EKG without ischemic findings, chest x-ray unremarkable, and troponin negative x2. As per medical record patient has had similar presentations in the past. pt conor be d/dio on percocet 10mg to help manage her chronic pain with acute exacerbation. She anticipates being able to fill her new script by wed (in 2 day) most recent scripts [place] per [place] prescription monitoring 06/02/2020 1 02/13/2020 CLONAZEPAM 1 MG TABLET 90.0 30day [facility] [id number] [facility] ([id number]) 1 05/12/2020 1 05/12/2020 MORPHINE SULF ER 15 MG TABLET 60.0 30day WO MAR [id number] [facility] ([id number]) 0 Critical Care Time: No Critical care attestation.: If time is entered above; I have spent that time in minutes in the direct care of this critically ill patient, excluding procedure time. ED Disposition Clinical Impression: Musculoskeletal chest pain, Left arm pain, Fibromyalgia, Has run out of medications Disposition: DC-01 TO HOME OR SELFCARE Is pt being admited?: No Does the pt Need Aspirin: No Condition: Stable Instructions: Musculoskeletal Pain (ED) Additional Instructions: Take the medication as prescribed. Follow-up with your doctor or doctor/clinic provided. Return if symptoms worsen as indicated by your discharge instructi ons. Prescriptions: Oxycodone HCl/Acetaminophen [Percocet 10/325 mg] 1 each PO Q6HR PRN #20 tablet PRN Reason: Pain Referrals: PRIMARY CARE, [Primary Care Provider] - 3-5 Days Time of Disposition: 14:04
[2020-06-08] MEDS ORDERED: HYDROmorphone 2 MG/1 ML INJ IM ONE ×2 (07:35→10:41)
[2020-06-08] MEDS ORDERED: ONDANSETRON 4 MG ODT TAB PO ONE (07:35)
[2020-06-08 08:21] LABS: Basophils % (Manual) 0 % (0.0-1.8); Eosinophils % (Manual) 0 % (0.0-4.3); Total Cells Counted 100
[2020-06-08 08:22] LABS: Anisocytosis Few; Platelet Estimate Consistent w Auto
--- NOTE | 2020-06-08 08:46 | XRay Report ---
CHEST 1 VIEW 06/08/2020 7:39 AM INDICATION / CLINICAL INFORMATION: Chest Pain. COMPARISON: Chest one view dated 01/18/2020. FINDINGS: SUPPORT DEVICES: None. HEART / MEDIASTINUM: No significant abnormality. LUNGS / PLEURA: The lungs are clear with elevation of the left hemidiaphragm that is unchanged. No si gnificant pleural effusion. No pneumothorax. ADDITIONAL FINDINGS: No significant additional findings. IMPRESSION: 1. No acute abnormality of the chest. Signer Name: Mingo Capps MD Signed: 06/08/2020 8:41 AM Workstation Name: [id number]
[2020-06-08] MEDS ORDERED: METOPROLOL TARTRATE 50 MG TAB PO ONE (12:43)
[2020-06-08] MEDS ORDERED: clonazePAM 0.5 MG TAB PO ONE (12:43)
[2020-06-08 14:27] VITALS: BP 102/46
== END 2020-06-08 14:24 | disposition home or self-care (01) ==
LOC: ED 03:30
DX: M79.7 Fibromyalgia (principal); M79.602 Pain in left arm; R07.89 Other chest pain; E78.00 Pure hypercholesterolemia, unspecified; F31.9 Bipolar disorder, unspecified; E03.9 Hypothyroidism, unspecified; I12.9 Hypertensive chronic kidney disease with stage 1 through stage 4 chronic kidney disease, or unspecified chronic kidney disease; N18.3 Chronic kidney disease, stage 3 (moderate); E11.22 Type 2 diabetes mellitus with diabetic chronic kidney disease; F41.9 Anxiety disorder, unspecified; G43.909 Migraine, unspecified, not intractable, without status migrainosus; Z86.69 Personal history of other diseases of the nervous system and sense organs; Z87.442 Personal history of urinary calculi; Z98.890 Other specified postprocedural states; Z79.899 Other long term (current) drug therapy; Z86.73 Personal history of transient ischemic attack (TIA), and cerebral infarction without residual deficits; Z91.040 Latex allergy status; Z88.8 Allergy status to other drugs, medicaments and biological substances; Z88.6 Allergy status to analgesic agent; Z78.9 Other specified health status
CPT/HCPCS: 36415; 71045; 80048; 84484; 84703; 85007; 85025; 93005; 96372; 99284; J1170; Q0162

== ENCOUNTER 2020-07-13 13:04 | Emergency (ER) | payer MEDICARE ==
--- NOTE | 2020-07-13 16:13 | Emergency Department Report ---
ED Fall HPI - General Chief Complaint: Fall Stated Complaint: BACK PAIN Time Seen by Provider: 07/13/20 15:45 Source: patient Mode of arrival: Wheelchair - History of Present Illness Initial Comments: Patient is 45 years old female with no significant past medical history. Patient presented to the ER for evaluation after she sustained a fall from stairway approximately 2-3 steps. Patient stated that she landed on her left side. Patient is complaining of left chest pain, lower back pain, left knee and left ankle pain. Patient denies any loss of consciousness. She denied any focal weakness numbness or tingling sensation. No bowel or bladder incontinence. Patient stated that she did not have any symptoms prior to the fall. MD Complaint: fall -: This morning Fall From: down stairs (#) (3) Fall Witnessed: yes, by family Place Fall Occurred: home Loss of Consciousness: none Prolonged Down Time?: no Symptoms Prior to Fall: none Location: neck, chest, back Location - Extremities: Left: Knee, Ankle Severity: moderate Severity scale (0 -10): 5 Context: tripped/slipped - Related Data Home Medications Medication Instructions Recorded Confirmed Last Taken Linaclotide [Linzess] 290 mcg PO DAILY 04/07/19 01/18/20 01/17/20 Liothyronine Sodium [Cytomel] 5 mcg PO DAILY 04/07/19 01/18/20 01/17/20 Lurasidone HCl [Latuda] 120 mg PO QDAY 04/07/19 01/18/20 01/17/20 Meclizine [Antivert] 25 mg PO TID PRN 04/07/19 01/18/20 01/17/20 Topiramate [Qudexy Xr] 1 tab PO DAILY 04/07/19 01/18/20 01/17/20 Fluticasone/Salmeterol [Advair 1 puff IH BID 04/16/19 01/18/20 01/17/20 Diskus 250-50 mcg] Levothyroxine [Synthroid] 300 mcg PO QDAY 04/16/19 01/18/20 01/17/20 Losartan [Cozaar] 100 mg PO QDAY 04/16/19 01/18/20 01/17/20 Metoprolol Xl [Metoprolol 50 mg PO QDAY 04/16/19 01/18/20 01/17/20 SUCCINATE ER TAB] Trazodone HCl 150 mg PO QDAY 04/16/19 01/18/20 01/17/20 diphenhydrAMINE [Benadryl CAP] 50 mg PO QDAY 04/16/19 01/18/20 01/17/20 06:00 50 mg hydroCHLOROthiazide [HCTZ] 25 mg PO QDAY 04/16/19 01/18/20 01/17/20 50 mg Previous Rx's Medication Instructions Recorded Last Taken Type Dicyclomine [Bentyl] 10 mg PO QID PRN #20 capsule 04/26/19 01/17/20 Rx Potassium Chloride [K-Dur] 10 meq PO QDAY #7 tablet 05/01/19 01/17/20 Rx clonazePAM [KlonoPIN] 1 mg PO DAILY #10 tablet 05/01/19 01/17/20 Rx 50 mg HYDROcodone/APAP 5-325 [[place] 1 each PO Q6HR PRN #12 tablet 06/01/19 01/17/20 Rx 5-325 mg TAB] Acetaminophen [Acetaminophen 8 650 mg PO Q8H PRN #20 tablet.er 12/02/19 01/17/20 Rx Hour] Cyclobenzaprine [Flexeril 10 MG 10 mg PO QHS PRN #10 tablet 12/02/19 01/17/20 Rx TAB] traMADoL [Ultram 50 MG tab] 50 mg PO Q6HR PRN #10 tablet 01/08/20 01/17/20 Rx 50 mg Azithromycin [Zithromax TAB] 500 mg PO QDAY #3 tablet 01/21/20 Unknown Rx Famotidine [Acid Controller] 20 mg PO DAILY #30 tablet 01/21/20 Unknown Rx Amoxicillin [Trimox CAP] 500 mg PO Q8H #21 capsule 05/25/20 Unknown Rx Amoxicillin [Trimox CAP] 500 mg PO Q8H #21 capsule 05/25/20 Unknown Rx Butalb/Acetamin/Caff 50-325-40 1 tab PO Q8HR PRN #20 tablet 05/25/20 Unknown Rx [Fioricet] Oxycodone HCl/Acetaminophen 1 each PO Q6HR PRN #20 tablet 06/08/20 Unknown Rx [Percocet 10/325 mg] Allergies Allergy/AdvReac Type Severity Reaction Status Date / Time aspirin Allergy Unknown Verified 05/25/20 17:23 butorphanol tartrate Allergy Seizure Verified 05/25/20 17:23 [From Stadol] latex Allergy Hives Verified 05/25/20 17:23 NSAIDS (Non-Steroidal Allergy Unknown Verified 05/25/20 17:23 Anti-Inflamma ED Review of Systems ROS: Stated complaint: BACK PAIN Other details as noted in HPI Comment: All other systems reviewed and negative Constitutional: denies: chills, fever, malaise ENT: denies: throat pain Respiratory: denies: cough, orthopnea, shortness of breath, SOB with exertion, SOB at rest, wheezing Cardiovascular: denies: chest pain Gastrointestinal: denies: abdominal pain, nausea, vomiting Musculoskeletal: back pain, arthralgia Neurological: denies: headache, weakness, numbness, paresthesias, confusion ED Past Medical Hx - Past Medical History Previous Medical History?: Yes Hx Hypertension: Yes Hx CVA: Yes (2011) Hx Heart Attack/AMI: No Hx Congestive Heart Failure: No Hx Diabetes: Yes Hx Deep Vein Thrombosis: No Hx Pulmonary Embolism: No Hx Liver Disease: No Hx Renal Disease: Yes (stage 3) Hx Sickle Cell Disease: No Hx Arthritis: No Hx Headaches / Migraines: Yes Hx Seizures: Yes Hx Kidney Stones: Yes Hx Psychiatric Treatment: Yes (Bipolar, Panic Attacks, Anxiety, MDD) Hx Asthma: No Hx COPD: No Hx Tuberculosis: No Hx Dementia: No Hx HIV: No Additional medical history: lupus, Gastroparesis, Neuropathy,. high chol esterol, Endometriosis,. bipolar, Fibromylagia, hypothyroidism. anxiety PANIC ATTACK, carpal tunnel syndrome - Surgical History Past Surgical History?: Yes Hx Coronary Stent: No Hx Open Heart Surgery: No Hx Internal Defibrillator: No Hx Cholecystectomy: No Hx Appendectomy: No Hx Breast Surgery: No Additional Surgical History: "rectal repair" after vaginal delivery, Cyst removal on back, Exploratory surgery with abdominal surgery, lump removed from right arm and right breast - Social History Smoking Status: Never Smoker - Medications Home Medications: Home Medications Medication Instructions Recorded Confirmed Last Taken Type Linaclotide [Linzess] 290 mcg PO DAILY 04/07/19 01/18/20 01/17/20 History Liothyronine Sodium [Cytomel] 5 mcg PO DAILY 04/07/19 01/18/20 01/17/20 History Lurasidone HCl [Latuda] 120 mg PO QDAY 04/07/19 01/18/20 01/17/20 History Meclizine [Antivert] 25 mg PO TID PRN 04/07/19 01/18/20 01/17/20 History Topiramate [Qudexy Xr] 1 tab PO DAILY 04/07/19 01/18/20 01/17/20 History Fluticasone/Salmeterol [Advair 1 puff IH BID 04/16/19 01/18/20 01/17/20 History Diskus 250-50 mcg] Levothyroxine [Synthroid] 300 mcg PO QDAY 04/16/19 01/18/20 01/17/20 History Losartan [Cozaar] 100 mg PO QDAY 04/16/19 01/18/20 01/17/20 History Metoprolol Xl [Metoprolol 50 mg PO QDAY 04/16/19 01/18/20 01/17/20 History SUCCINATE ER TAB] Trazodone HCl 150 mg PO QDAY 04/16/19 01/18/20 01/17/20 History diphenhydrAMINE [Benadryl CAP] 50 mg PO QDAY 04/16/19 01/18/20 01/17/20 06:00 History 50 mg hydroCHLOROthiazide [HCTZ] 25 mg PO QDAY 04/16/19 01/18/20 01/17/20 History 50 mg Dicyclomine [Bentyl] 10 mg PO QID PRN #20 capsule 04/26/19 01/18/20 01/17/20 Rx Potassium Chloride [K-Dur] 10 meq PO QDAY #7 tablet 05/01/19 01/18/20 01/17/20 Rx clonazePAM [KlonoPIN] 1 mg PO DAILY #10 tablet 05/01/19 01/18/20 01/17/20 Rx 50 mg HYDROcodone/APAP 5-325 [[place] 1 each PO Q6HR PRN #12 tablet 06/01/19 01/18/20 01/17/20 Rx 5-325 mg TAB] Acetaminophen [Acetaminophen 8 650 mg PO Q8H PRN #20 tablet.er 12/02/19 01/18/20 01/17/20 Rx Hour] Cyclobenzaprine [Flexeril 10 MG 10 mg PO QHS PRN #10 tablet 12/02/19 01/18/20 01/17/20 Rx TAB] traMADoL [Ultram 50 MG tab] 50 mg PO Q6HR PRN #10 tablet 01/08/20 01/18/20 01/17/20 Rx 50 mg Azithromycin [Zithromax TAB] 500 mg PO QDAY #3 tablet 01/21/20 Unknown Rx Famotidine [Acid Controller] 20 mg PO DAILY #30 tablet 01/21/20 Unknown Rx Amoxicillin [Trimox CAP] 500 mg PO Q8H #21 capsule 05/25/20 Unknown Rx Amoxicillin [Trimox CAP] 500 mg PO Q8H #21 capsule 05/25/20 Unknown Rx Butalb/Acetamin/Caff 50-325-40 1 tab PO Q8HR PRN #20 tablet 05/25/20 Unknown Rx [Fioricet] Oxycodone HCl/Acetaminophen 1 each PO Q6HR PRN #20 tablet 06/08/20 Unknown Rx [Percocet 10/325 mg] ED Physical Exam - General Limitations: No Limitations General appearance: alert, in no apparent distress - Head Head exam: Present: atraumatic, normocephalic, normal inspection - Eye Eye exam: Present: normal appearance, PERRL - ENT ENT exam: Present: normal exam, normal orophraynx, mucous membranes moist - Neck Neck exam: Present: normal inspection, full ROM. Absent: tenderness, meningismus, lymphadenopathy, thyromegaly - Respiratory Respiratory exam: Present: normal lung sounds bilaterally - Cardiovascular Cardiovascular Exam: Present: regular rate, normal rhythm, normal heart sounds - GI/Abdominal GI/Abdominal exam: Present: soft, normal bowel sounds. Absent: distended, tenderness, guarding, rebound, rigid, organomegaly, mass, bruit, pulsatile mass, hernia - Extremities Exam Extremities exam: Present: normal inspection, full ROM, normal capillary refill. Absent: pedal edema, calf tenderness - Back Exam Back exam: Present: normal inspection, full ROM. Absent: CVA tenderness (R), CVA tenderness (L) - Neurological Exam Neurological exam: Present: alert, oriented X3, CN II-XII intact, normal gait, reflexes normal. Absent: motor sensory deficit - Psychiatric Psychiatric exam: Present: normal mood - Skin Skin exam: Present: warm, dry, intact ED Course Vital Signs 07/13/20 13:23 Temperature 98.9 F Pulse Rate 111 H Respiratory 18 Rate Blood Pressure 142/89 O2 Sat by Pulse 96 Oximetry ED Medical Decision Making - Radiology Data Radiology results: report reviewed - Medical Decision Making Patient is 45 years old female with no significant past medical history. Patient presented to the ER for evaluation after she sustained a fall from stairway approximately 2-3 steps. Patient stated that she landed on her left side. Patient is complaining of left chest pain, lower back pain, left knee and left ankle pain. Patient denies any loss of consciousness. She denied any focal weakness numbness or tingling sensation. No bowel or bladder incontinence. Patient stated that she did not have any symptoms prior to the fall. X-ray of the cervical spine, chest, lumbosacral spine, left knee and left ankle are negative for acute finding. Patient given prescription for tramadol and Zofran and advised to follow-up with her primary doctor in the next 2 to 3 days and to return to the ER if she develop any symptoms. Critical care attestation.: If time is entered above; I have spent that time in minutes in the direct care of this critically ill patient, excluding procedure time. ED Disposition Clinical Impression: Fall, Contusion Disposition: DC-01 TO HOME OR SELFCARE Is pt being admited?: No Condition: Stable Instructions: Contusion in Adults (ED) Referrals: RASHI LI MD [Primary Care Provider] - 3-5 Days
--- NOTE | 2020-07-13 17:06 | XRay Report ---
LUMBAR SPINE 2 VIEWS INDICATION / CLINICAL INFORMATION: BACK INJURY. COMPARISON: None available. FINDINGS: VERTEBRAE: No acute fracture. No significant malalignment. DISC SPACES / FACET JOINTS:No significant abnormality. PARASPINAL SOFT TISSUES:No significant abnormality. ADDITIONAL FINDINGS: None. Signer Name: Loren Castaneda MD Signed: 07/13/2020 5:02 PM Workstation Name: [id number]
--- NOTE | 2020-07-13 17:06 | XRay Report ---
LEFT KNEE 3 VIEW(S) INDICATION / CLINICAL INFORMATION: fall COMPARISON: None available. FINDINGS: BONES / JOINT(S): No acute fracture or subluxation. Mild tricompartment degenerative arthrosis, espec ially the patellofemoral compartment. No significant joint effusion. SOFT TISSUES: No significant abnormality. ADDITIONAL FINDINGS: None. Signer Name: Loren Castaneda MD Signed: 07/13/2020 5:01 PM Workstation Name: [id number]
--- NOTE | 2020-07-13 17:09 | XRay Report ---
CHEST 1 VIEW 07/13/2020 3:56 PM INDICATION / CLINICAL INFORMATION: chest pain. COMPARISON: 06/08/20 FINDINGS: SUPPORT DEVICES: None. HEART / MEDIASTINUM: No significant abnormality. LUNGS / PLEURA: No significant pulmonary or pleural abnormality. No pneumothorax. ADDITIONAL FINDINGS: No significant additional findings. IMPRESSION: 1. No acute findings. No significant change. Signer Name: Loren Castaneda MD Signed: 07/13/2020 5:04 PM Workstation Name: [id number]
--- NOTE | 2020-07-13 17:11 | XRay Report ---
CERVICAL SPINE 5 VIEWS INDICATION / CLINICAL INFORMATION: neck injury. Status post fall. COMPARISON: None available. FINDINGS: VERTEBRAE: No acute fracture. No significant malalignment. Mild cervical kyphosis is unchanged. DISC SPACES / FACET JOINTS:No significant abnormality. PARASPINAL SOFT TISSUES:No significant abnormality. ADDITIONAL FINDINGS: None. Signer Name: Loren Castaneda MD Signed: 07/13/2020 5:06 PM Workstation Name: [id number]
--- NOTE | 2020-07-13 17:34 | XRay Report ---
LEFT ANKLE 3 VIEWS INDICATION / CLINICAL INFORMATION: Left ankle pain/injury after fall. COMPARISON: None available. FINDINGS: BONES and JOINT(S): No acute fracture or subluxation. No significant arthritis. SOFT TISSUES: No significant abnormality. ADDITIONAL FINDINGS: None. IMPRESSION: 1. No acute findings. Signer Name: Mingo Capps MD Signed: 07/13/2020 5:30 PM Workstation Name: [id number]
[2020-07-13 18:19] VITALS: BP 119/80
== END 2020-07-13 18:18 | disposition home or self-care (01) ==
LOC: ED 13:04
DX: S80.02XA Contusion of left knee, initial encounter (principal); S90.02XA Contusion of left ankle, initial encounter; S30.0XXA Contusion of lower back and pelvis, initial encounter; S20.212A Contusion of left front wall of thorax, initial encounter; I10 Essential (primary) hypertension; G43.909 Migraine, unspecified, not intractable, without status migrainosus; E11.40 Type 2 diabetes mellitus with diabetic neuropathy, unspecified; E78.00 Pure hypercholesterolemia, unspecified; E05.00 Thyrotoxicosis with diffuse goiter without thyrotoxic crisis or storm; Z79.899 Other long term (current) drug therapy; Z91.040 Latex allergy status; Z88.6 Allergy status to analgesic agent; Z88.8 Allergy status to other drugs, medicaments and biological substances; W18.39XA Other fall on same level, initial encounter; Y93.89 Activity, other specified; Y92.89 Other specified places as the place of occurrence of the external cause; Y99.8 Other external cause status
CPT/HCPCS: 71045; 72040; 72100

== ENCOUNTER 2020-07-26 19:47 | Emergency (ER) | payer MEDICARE ==
--- NOTE | 2020-07-26 20:04 | Emergency Department Report ---
Blank Doc - Documentation Documentation: 45-year-old female that presents with lupus flare. This initial assessment/diagnostic orders/clinical plan/treatment(s) is/are subject to change based on patient's health status, clinical progression and re- assessment by fellow clinical providers in the ED. Further treatment and workup at subsequent clinical providers discretion. Patient/guardians urged not to elope from the ED as their condition may be serious if not clinically assessed and managed. Initial orders include: 1- Patient sent to [facility] for further evaluation and treatment 2- labs 3- UA
[2020-07-26 20:36] LABS: Hemoglobin 11.5 gm/dl (10.1-14.3); Mean Corpuscular HGB Conc 35 % (30-34); Mean Corpuscular Volume 84 fl (79-97); Platelet Count 414 K/mm3 (140-440); Red Blood Count 3.92 M/mm3 (3.65-5.03); Red Cell Distribution Width 13.3 % (13.2-15.2)
[2020-07-26 20:53] LABS: Alanine Aminotransferase 16 units/L (7-56); Albumin 3.8 g/dL (3.9-5); BUN/Creatinine Ratio 11; Blood Urea Nitrogen 9 mg/dL (7-17); Calcium 9.3 mg/dL (8.4-10.2); Hemolysis Index 17
[2020-07-26 21:31] LABS: Total Cells Counted 100
[2020-07-26 21:32] LABS: Anisocytosis Few; Basophils % (Manual) 0 % (0.0-1.8); Eosinophils % (Manual) 0 % (0.0-4.3)
[2020-07-26 21:53] LABS: Bacteria,Urine 1+ /HPF (Negative); Bilirubin,Urine NEG (Negative); Blood,Urine SM (Negative); Color,Urine Yellow (Yellow); Mucus,Urine 2+ /HPF; WBC,Urine < 1.0 /HPF (0.0-6.0)
[2020-07-26 21:54] LABS: HCG Qualitative,Urine Negative (Negative)
[2020-07-27] MEDS ORDERED: HYDROmorphone 1 MG/1 ML INJ IV ONE ×2 (02:03→03:17)
--- NOTE | 2020-07-27 02:09 | Emergency Department Report ---
HPI - General Chief Complaint: Pain General Time Seen by Provider: 07/26/20 20:03 - HPI HPI: This is a 45-year-old female presents to the emergency department from home with complaint of generalized pains, worst in the lower extremities, that she says is a lupus flareup. This has been going on since last Monday but worsened today. She has a past medical history that includes TIA, diabetes, migraine headaches, hypertension, lupus, bipolar disorder, panic attacks, neuropathy, fibromyalgia, hypothyroidism. Patient says that she took a muscle relaxer at around 5 PM without much relief. Patient was here about 2 weeks ago on 07/13/2020 for a ground-level fall in which she fell and hit her mother's motorized scooter. She was evaluated for left-sided pain at that time and says that the same pain has returned. She follows with [facility] for primary care. She denies any chest pain, shortness of breath, fever, nausea, vomiting or diaphoresis. ED Past Medical Hx - Past Medical History Previous Medical History?: Yes Hx Hypertension: Yes Hx CVA: Yes (TIA 2011) Hx Heart Attack/AMI: No Hx Congestive Heart Failure: No Hx Diabetes: Yes Hx Deep Vein Thrombosis: No Hx Pulmonary Embolism: No Hx Liver Disease: No Hx Renal Disease: Yes (stage 3) Hx Sickle Cell Disease: No Hx Arthritis: No Hx Headaches / Migraines: Yes Hx Seizures: Yes Hx Kidney Stones: Yes Hx Psychiatric Treatment: Yes (Bipolar, Panic Attacks, Anxiety, MDD) Hx Asthma: No Hx COPD: No Hx Tuberculosis: No Hx Dementia: No Hx HIV: No Additional medical history: lupus, Gastroparesis, Neuropathy,MORBID OBESITY. high cholesterol, Endometriosis,. bipolar, Fibromylagia, hypothyroidism. anxiety PANIC ATTACK, carpal tunnel syndrome - Surgical History Past Surgical History?: Yes Hx Coronary Stent: No Hx Open Heart Surgery: No Hx Internal Defibrillator: No Hx Cholecystectomy: No Hx Appendectomy: No Hx Breast Surgery: No Additional Surgical History: "rectal repair" after vaginal delivery, Cyst removal on back, Exploratory surgery with abdominal surgery, lump removed from right arm and right breast - Social History Smoking Status: Never Smoker Substance Use Type: None - Medications Home Medications: Home Medications Medication Instructions Recorded Confirmed Last Taken Type Linaclotide [Linzess] 290 mcg PO DAILY 04/07/19 01/18/20 01/17/20 History Liothyronine Sodium [Cytomel] 5 mcg PO DAILY 04/07/19 01/18/20 01/17/20 History Lurasidone HCl [Latuda] 120 mg PO QDAY 04/07/19 01/18/20 01/17/20 History Meclizine [Antivert] 25 mg PO TID PRN 04/07/19 01/18/20 01/17/20 History Topiramate [Qudexy Xr] 1 tab PO DAILY 04/07/19 01/18/20 01/17/20 History Fluticasone/Salmeterol [Advair 1 puff IH BID 04/16/19 01/18/20 01/17/20 History Diskus 250-50 mcg] Levothyroxine [Synthroid] 300 mcg PO QDAY 04/16/19 01/18/20 01/17/20 History Losartan [Cozaar] 100 mg PO QDAY 04/16/19 01/18/20 01/17/20 History Metoprolol Xl [Metoprolol 50 mg PO QDAY 04/16/19 01/18/20 01/17/20 History SUCCINATE ER TAB] Trazodone HCl 150 mg PO QDAY 04/16/19 01/18/20 01/17/20 History diphenhydrAMINE [Benadryl CAP] 50 mg PO QDAY 04/16/19 01/18/20 01/17/20 06:00 History 50 mg hydroCHLOROthiazide [HCTZ] 25 mg PO QDAY 04/16/19 01/18/20 01/17/20 History 50 mg Dicyclomine [Bentyl] 10 mg PO QID PRN #20 capsule 04/26/19 01/18/20 01/17/20 Rx Potassium Chloride [K-Dur] 10 meq PO QDAY #7 tablet 05/01/19 01/18/20 01/17/20 Rx clonazePAM [KlonoPIN] 1 mg PO DAILY #10 tablet 05/01/19 01/18/20 01/17/20 Rx 50 mg HYDROcodone/APAP 5-325 [[place] 1 each PO Q6HR PRN #12 tablet 06/01/19 01/18/20 01/17/20 Rx 5-325 mg TAB] Acetaminophen [Acetaminophen 8 650 mg PO Q8H PRN #20 tablet.er 12/02/19 01/18/20 01/17/20 Rx Hour] Cyclobenzaprine [Flexeril 10 MG 10 mg PO QHS PRN #10 tablet 12/02/19 01/18/20 01/17/20 Rx TAB] Azithromycin [Zithromax TAB] 500 mg PO QDAY #3 tablet 01/21/20 Unknown Rx Famotidine [Acid Controller] 20 mg PO DAILY #30 tablet 01/21/20 Unknown Rx Amoxicillin [Trimox CAP] 500 mg PO Q8H #21 capsule 05/25/20 Unknown Rx Amoxicillin [Trimox CAP] 500 mg PO Q8H #21 capsule 05/25/20 Unknown Rx Butalb/Acetamin/Caff 50-325-40 1 tab PO Q8HR PRN #20 tablet 05/25/20 Unknown Rx [Fioricet] Oxycodone HCl/Acetaminophen 1 each PO Q6HR PRN #20 tablet 06/08/20 Unknown Rx [Percocet 10/325 mg] Ondansetron [Zofran Odt] 4 mg PO Q8HR PRN #14 tab.rapdis 07/13/20 Unknown Rx traMADoL [Ultram 50 MG tab] 50 mg PO Q4HR PRN #14 tablet 07/13/20 Unknown Rx traMADoL [Ultram 50 MG tab] 50 mg PO Q6HR PRN #10 tablet 07/27/20 Unknown Rx ED Review of Systems ROS: Stated complaint: LUPUS FLARE UP Other details as noted in HPI Comment: All other systems reviewed and negative Constitutional: denies: chills, fever Eyes: denies: eye pain, vision change ENT: denies: ear pain Respiratory: denies: cough, shortness of breath Cardiovascular: denies: chest pain, palpitations Gastrointestinal: denies: abdominal pain, vomiting Genitourinary: denies: dysuria, discharge Musculoskeletal: arthralgia, myalgia Neurological: paresthesias. denies: weakness, numbness Physical Exam - Physical Exam Vital Signs: Vital Signs 07/26/20 20:06 Temperature 98.3 F Pulse Rate 118 H Respiratory 20 Rate Blood Pressure 178/107 O2 Sat by Pulse 93 Oximetry Physical Exam: GENERAL: The patient is well-developed well-nourished. HENT: Normocephalic. Atraumatic. Patient has moist mucous membranes. EYES: Extraocular motions are intact. NECK: Supple. Trachea is midline. CHEST/LUNGS: Clear to auscultation. There is no respiratory distress noted. HEART/CARDIOVASCULAR: Regular. There is mild tachycardia. There is no murmur. ABDOMEN: Abdomen is soft, nontender. Patient has normal bowel sounds. SKIN: Skin is warm and dry. NEURO: The patient is awake, alert, and oriented. The patient is cooperative. The patient has no focal neurologic deficits. Normal speech. MUSCULOSKELETAL: There is tenderness to palpation along the left lower leg, worst at the thigh, but no obvious deformity. There is no limitation range of motion. ED Course Vital Signs 07/26/20 20:06 Temperature 98.3 F Pulse Rate 118 H Respiratory 20 Rate Blood Pressure 178/107 O2 Sat by Pulse 93 Oximetry - Reevaluation(s) Reevaluation #1: 07/27/20 05:54 Lab Results 07/26/20 07/26/20 07/26/20 Range/Units 20:10 20:10 21:35 WBC 10.0 (4.5-11.0) K/mm3 RBC 3.92 (3.65-5.03) M/mm3 Hgb 11.5 (10.1-14.3) gm/dl Hct 33.0 (30.3-42.9) % MCV 84 (79-97) fl MCH 29 (28-32) pg MCHC 35 H (30-34) % RDW 13.3 (13.2-15.2) % Plt Count 414 (140-440) K/mm3 Lymph # (Auto) Iv Therapy Nurse Add Manual Diff Complete Total Counted 100 Seg Neuts % (Manual) 45.0 (40.0-70.0) % Band Neutrophils % 0 % Lymphocytes % (Manual) 47.0 H (13.4-35.0) % Reactive Lymphs % (Man) 0 % Monocytes % (Manual) 8.0 H (0.0-7.3) % Eosinophils % (Manual) 0 (0.0-4.3) % Basophils % (Manual) 0 (0.0-1.8) % Metamyelocytes % 0 % Myelocytes % 0 % Promyelocytes % 0 % Blast Cells % 0 % Nucleated RBC % Not Reportable Seg Neutrophils # Man 4.5 (1.8-7.7) K/mm3 Band Neutrophils # 0.0 K/mm3 Lymphocytes # (Manual) 4.7 (1.2-5.4) K/mm3 Abs React Lymphs (Man) 0.0 K/mm3 Monocytes # (Manual) 0.8 (0.0-0.8) K/mm3 Eosinophils # (Manual) 0.0 (0.0-0.4) K/mm3 Basophils # (Manual) 0.0 (0.0-0.1) K/mm3 Metamyelocytes # 0.0 K/mm3 Myelocytes # 0.0 K/mm3 Promyelocytes # 0.0 K/mm3 Blast Cells # 0.0 K/mm3 WBC Morphology Not Reportable Hypersegmented Neuts Not Reportable Hyposegmented Neuts Not Reportable Hypogranular Neuts Not Reportable Smudge Cells Not Reportable Toxic Granulation Not Reportable Toxic Vacuolation Not Reportable Dohle Bodies Not Reportable Pelger-Huet Anomaly Not Reportable Nay Rods Not Reportable Platelet Estimate Not Reportable Clumped Platelets Not Reportable Plt Clumps, EDTA Not Reportable Large Platelets Not Reportable Giant Platelets Not Reportable Platelet Satelliting Not Reportable Plt Morphology Comment Not Reportable RBC Morphology Not Reportable Dimorphic RBCs Not Reportable Polychromasia Not Reportable Hypochromasia Not Reportable Poikilocytosis Not Reportable Anisocytosis Few Microcytosis Few Macrocytosis Not Reportable Spherocytes Not Reportable Pappenheimer Bodies Not Reportable Sickle Cells Not Reportable Target Cells Not Reportable Tear Drop Cells Not Reportable Ovalocytes Not Reportable Helmet Cells Not Reportable Villatoro-[place] Bodies Not Reportable [place] Rings Not Reportable [place] Cells Not Reportable Bite Cells Not Reportable Crenated Cell Not Reportable Elliptocytes Not Reportable Acanthocytes (Spur) Not Reportable Rouleaux Not Reportable Hemoglobin C Crystals Not Reportable Schistocytes Not Reportable Malaria parasites Not Reportable Yash Bodies Not Reportable Hem Pathologist Commnt No Sodium 136 L (137-145) mmol/L Potassium 3.6 (3.6-5.0) mmol/L Chloride 98.8 (98-107) mmol/L Carbon Dioxide 24 (22-30) mmol/L Anion Gap 17 mmol/L BUN 9 (7-17) mg/dL Creatinine 0.8 (0.6-1.2) mg/dL Estimated GFR > 60 ml/min BUN/Creatinine Ratio 11 % Glucose 165 H (65-100) mg/dL Calcium 9.3 (8.4-10.2) mg/dL Total Bilirubin < 0.20 (0.1-1.2) mg/dL AST 17 (5-40) units/L ALT 16 (7-56) units/L Alkaline Phosphatase 100 (35-129) units/L Total Protein 7.7 (6.3-8.2) g/dL Albumin 3.8 L (3.9-5) g/dL Albumin/Globulin Ratio 1.0 % Urine Color Yellow (Yellow) Urine Turbidity Slightly-cloudy (Clear) Urine pH 5.0 (5.0-7.0) Ur Specific [place] 1.028 (1.003-1.030) Urine Protein 30 mg/dl (Negative) mg/dL Urine Glucose (UA) Neg (Negative) mg/dL Urine Ketones Neg (Negative) mg/dL Urine Blood Sm (Negative) Urine Nitrite Neg (Negative) Urine Bilirubin Neg (Negative) Urine Urobilinogen 2.0 (<2.0) mg/dL Ur Leukocyte Esterase Neg (Negative) Urine WBC (Auto) < 1.0 (0.0-6.0) /HPF Urine RBC (Auto) 7.0 (0.0-6.0) /HPF U Epithel Cells (Auto) 2.0 (0-13.0) /HPF Urine Bacteria (Auto) 1+ (Negative) /HPF Urine Mucus 2+ /HPF Urine HCG, Qual Negative (Negative) Reevaluation #2: 07/27/20 05:54 Vital Signs 07/26/20 07/27/20 07/27/20 20:06 02:29 02:33 Temperature 98.3 F 98.2 F Pulse Rate 118 H 102 H Respiratory 20 19 19 Rate Blood Pressure 178/107 Blood Pressure 148/84 [Left] O2 Sat by Pulse 93 100 Oximetry 07/27/20 07/27/20 07/27/20 02:59 03:27 03:57 Temperature Pulse Rate Respiratory 18 16 16 Rate Blood Pressure Blood Pressure [Left] O2 Sat by Pulse Oximetry ED Medical Decision Making - Lab Data Result diagrams: 07/26/20 20:10 07/26/20 20:10 - EKG Data -: EKG Interpreted by Me EKG shows normal: sinus rhythm, axis, intervals, QRS complexes, ST-T waves Rate: tachycardia (110 bpm) - EKG Data When compared to previous EKG there are: no significant change Interpretation: unchanged when compared t (06/08/20) - Radiology Data Radiology results: report reviewed, image reviewed interpreted by me: X-ray of the left femur does not show any fracture, dislocation, or any acute process. DUPLEX DOPPLER LOWER EXTREMITY VEINS, LEFT INDICATION: left leg pain and sw elling. TECHNIQUE: Duplex doppler imaging was performed through the veins of the left lower extremity using venous compression and other maneuvers. COMPARISON: None available. FINDINGS: Common Femoral vein: Negative. Superficial Femoral vein: Negative. Popliteal vein: Negative. Calf veins: Negative. Additional findings: None. IMPRESSION: 1. No sonographic evidence for DVT in the left lower extremity. - Medical Decision Making This patient presents to the emergency department with a complaint of generalized pain but her worst pain is in the left leg where the patient had a fall about 10 days ago. An x-ray of the left femur does not show any fracture, dislocation, or any acute process. Left lower extremity venous Doppler ultrasound is negative for DVT. Patient's labs have been unremarkable including CBC, metabolic panel and urinalysis. Patient was given 2 doses of IV analgesia with improvement of her discomfort. She was seen ambulatory in the emergency department and appears stable. Patient has been given an outpatient referral for a local orthopedist. 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 The patient has been instructed to return to the emergency department with any worsening of her symptoms or with any acute distress. Critical Care Time: No Critical care attestation.: If time is entered above; I have spent that time in minutes in the direct care of this critically ill patient, excluding procedure time. ED Disposition Clinical Impression: Left leg pain, Musculoskeletal pain Lupus Qualifiers: Systemic lupus erythematosus type: unspecified Systemic lupus erythematosus organ involvement: unspecified Qualified Code(s): M32.9 - Systemic lupus erythematosus, unspecified Disposition: DC-01 TO HOME OR SELFCARE Is pt being admited?: No Condition: Stable Instructions: Arthralgia (ED) Additional Instructions: Please follow-up with your primary care physician in the next few days. I am giving you a referral for a local orthopedist, Dr. Reza, to follow-up regarding your leg and other musculoskeletal pains. You have been prescribed a medication that is sedating and therefore should not be taken prior to driving, working, and responsible for children and in no way should be mixed with alcohol of any quantity. Return to the emergency department with any worsening of your symptoms, new or concerning symptoms not addressed during this current emergency department visit, or with any acute distress. Prescriptions: traMADoL [Ultram 50 MG tab] 50 mg PO Q6HR PRN #10 tablet PRN Reason: Pain , Severe (7-10) Referrals: PRIMARY CARE, [Primary Care Provider] - 2-3 Days TILA REZA MD [Staff Physician] - 2-3 Days Time of Disposition: 05:38
[2020-07-27] MEDS ORDERED: ONDANSETRON 4 MG/2 ML INJ ONE (02:26)
[2020-07-27] MEDS ORDERED: ONDANSETRON 4 MG/2 ML INJ IV ONE (02:28)
--- NOTE | 2020-07-27 04:00 | XRay Report ---
Left femur 4 views INDICATION: Left femur pain IMPRESSION: The left femur is intact. No acute findings appreciated. Severe degenerative changes of t he left hip. Signer Name: Aleksander Myrick MD Signed: 07/27/2020 3:56 AM Workstation Name: [id number]
[2020-07-27] MEDS ORDERED: diphenhydrAMINE 50 MG/ML VIAL ONE (04:28)
[2020-07-27] MEDS ORDERED: diphenhydrAMINE 50 MG/ML VIAL IV ONE (04:29)
--- NOTE | 2020-07-27 05:51 | Vascular Lab Report ---
DUPLEX DOPPLER LOWER EXTREMITY VEINS, LEFT INDICATION: left leg pain and swelling. TECHNIQUE: Duplex doppler imaging was performed through the veins of the left lower extremity using venous compr ession and other maneuvers. COMPARISON: None available. FINDINGS: Common Femoral vein: Negative. Superficial Femoral vein: Negative. Popliteal vein: Negative. Calf veins: Negative. Additional findings: None. IMPRESSION: 1. No sonographic evidence for DVT in the left lower extremity. Signer Name: Aleksander Myrick MD Signed: 07/27/2020 5:47 AM Workstation Name: [id number]
[2020-07-27 06:05] VITALS: BP 144/80
== END 2020-07-27 06:08 | disposition home or self-care (01) ==
LOC: ED 19:47
DX: M32.8 Other forms of systemic lupus erythematosus (principal); E11.22 Type 2 diabetes mellitus with diabetic chronic kidney disease; I13.10 Hypertensive heart and chronic kidney disease without heart failure, with stage 1 through stage 4 chronic kidney disease, or unspecified chronic kidney disease; N18.30 Chronic kidney disease, stage 3 unspecified; G43.909 Migraine, unspecified, not intractable, without status migrainosus; F31.9 Bipolar disorder, unspecified; E78.00 Pure hypercholesterolemia, unspecified; E66.01 Morbid (severe) obesity due to excess calories; E11.40 Type 2 diabetes mellitus with diabetic neuropathy, unspecified; E05.00 Thyrotoxicosis with diffuse goiter without thyrotoxic crisis or storm; G56.00 Carpal tunnel syndrome, unspecified upper limb; Z98.890 Other specified postprocedural states; Z88.6 Allergy status to analgesic agent; Z79.899 Other long term (current) drug therapy; Z91.040 Latex allergy status
CPT/HCPCS: 36415; 73552; 80053; 81001; 81025; 85007; 85025; 93005; 93971; 96374; 96375; 96376; 99285; J1170; J1200; J2405

== ENCOUNTER 2021-01-06 21:25 | Emergency (ER) | payer MEDICARE | END 2021-01-07 00:08 | disposition left against medical advice (07) | LOC: ED 21:25 | DX: M54.5 Low back pain (principal); Z53.21 Procedure and treatment not carried out due to patient leaving prior to being seen by health care provider ==

== ENCOUNTER 2021-07-20 12:29 | Emergency (ER) | payer MEDICARE ==
[2021-07-20] MEDS ORDERED: MORPHINE 4 MG/1 ML INJ IV ONE ×2 (14:04→17:02)
[2021-07-20] MEDS ORDERED: ONDANSETRON 4 MG/2 ML INJ IV ONE (14:04)
--- NOTE | 2021-07-20 14:14 | Emergency Department Report ---
ED General Adult HPI - General Chief complaint: Chest Pain Stated complaint: CHEST & BODY PAIN X 2 WKS Time Seen by Provider: 07/20/21 13:33 Source: patient Mode of arrival: Stretcher Limitations: No Limitations - History of Present Illness Initial comments: Patient presents to the emergency department chief complaint of substernal chest pain that radiates into her left chest that started 2 weeks ago. Patient states the pain has been continuous in nature. Patient describes the pain as pressure- like in nature and states she went to see her negative spotter today who is Dr. Wilson for his chest pain and she was scheduled for outpatient stress test next week. Patient states she went home and became more concerned about the chest pain so she came to the emergency department. Patient denies any shortness of breath. -: Sudden, week(s) (2) Location: chest Severity scale (0 -10): 8 Quality: sharp Consistency: constant Improves with: none Worsens with: none Associated Symptoms: denies other symptoms Treatments Prior to Arrival: none - Related Data Home Medications Medication Instructions Recorded Confirmed Last Taken Linaclotide [Linzess] 290 mcg PO DAILY 04/07/19 07/20/21 01/17/20 Liothyronine Sodium [Cytomel] 5 mcg PO DAILY 04/07/19 07/20/21 01/17/20 Lurasidone HCl [Latuda] 120 mg PO QDAY 04/07/19 07/20/21 01/17/20 Meclizine [Antivert] 25 mg PO TID PRN 04/07/19 07/20/21 01/17/20 Topiramate [Qudexy Xr] 1 tab PO DAILY 04/07/19 07/20/21 01/17/20 Fluticasone/Salmeterol [Advair 1 puff IH BID 04/16/19 07/20/21 01/17/20 Diskus 250-50 mcg] Levothyroxine [Synthroid] 300 mcg PO QDAY 04/16/19 07/20/21 01/17/20 Losartan [Cozaar] 100 mg PO QDAY 04/16/19 07/20/21 01/17/20 Metoprolol Xl [Metoprolol 50 mg PO QDAY 04/16/19 07/20/21 01/17/20 SUCCINATE ER TAB] diphenhydrAMINE [Benadryl CAP] 50 mg PO QDAY 04/16/19 07/20/21 01/17/20 06:00 50 mg Previous Rx's Medication Instructions Recorded Last Taken Type Dicyclomine [Bentyl] 10 mg PO QID PRN #20 capsule 04/26/19 01/17/20 Rx Potassium Chloride [K-Dur] 10 meq PO QDAY #7 tablet 05/01/19 01/17/20 Rx clonazePAM [KlonoPIN] 1 mg PO DAILY #10 tablet 05/01/19 01/17/20 Rx 50 mg HYDROcodone/APAP 5-325 [[place] 1 each PO Q6HR PRN #12 tablet 06/01/19 01/17/20 Rx 5-325 mg TAB] Acetaminophen [Acetaminophen 8 650 mg PO Q8H PRN #20 tablet.er 12/02/19 01/17/20 Rx Hour] Cyclobenzaprine [Flexeril 10 MG 10 mg PO QHS PRN #10 tablet 12/02/19 01/17/20 Rx TAB] Famotidine [Acid Controller] 20 mg PO DAILY #30 tablet 01/21/20 Unknown Rx Butalb/Acetamin/Caff 50-325-40 1 tab PO Q8HR PRN #20 tablet 05/25/20 Unknown Rx [Fioricet] Ondansetron [Zofran Odt] 4 mg PO Q8HR PRN #14 tab.rapdis 07/13/20 Unknown Rx Allergies Allergy/AdvReac Type Severity Reaction Status Date / Time aspirin Allergy Unknown Verified 05/25/20 17:23 butorphanol tartrate Allergy Seizure Verified 05/25/20 17:23 [From Stadol] latex Allergy Hives Verified 05/25/20 17:23 NSAIDS (Non-Steroidal Allergy Unknown Verified 05/25/20 17:23 Anti-Inflamma ED Review of Systems ROS: Stated complaint: CHEST & BODY PAIN X 2 WKS Other details as noted in HPI Comment: All other systems reviewed and negative Constitutional: denies: chills, fever Eyes: denies: eye pain, eye discharge, vision change ENT: denies: ear pain, throat pain Respiratory: denies: cough, shortness of breath, wheezing Cardiovascular: chest pain. denies: palpitations Endocrine: no symptoms reported Gastrointestinal: denies: abdominal pain, nausea, diarrhea Genitourinary: denies: urgency, dysuria, discharge Musculoskeletal: denies: back pain, joint swelling, arthralgia Skin: denies: rash, lesions Neurological: denies: headache, weakness, paresthesias Psychiatric: denies: anxiety, depression Hematological/Lymphatic: denies: easy bleeding, easy bruising ED Past Medical Hx - Past Medical History Hx Hypertension: Yes Hx CVA: Yes (2011) Hx Heart Attack/AMI: No Hx Congestive Heart Failure: No Hx Diabetes: Yes Hx Deep Vein Thrombosis: No Hx Pulmonary Embolism: No Hx Liver Disease: No Hx Renal Disease: Yes (stage 3) Hx Sickle Cell Disease: No Hx Arthritis: No Hx Headaches / Migraines: Yes Hx Seizures: Yes Hx Kidney Stones: Yes Hx Psychiatric Treatment: Yes (Bipolar, Panic Attacks, Anxiety, MDD) Hx Asthma: No Hx COPD: No Hx Tuberculosis: No Hx Dementia: No Hx HIV: No Additional medical history: lupus, Gastroparesis, Neuropathy,MORBID OBESITY. high cholesterol, Endometriosis,. bipolar, Fibromylagia, hypothyroidism. anxiety PANIC ATTACK, carpal tunnel syndrome - Surgical History Hx Coronary Stent: No Hx Open Heart Surgery: No Hx Internal Defibrillator: No Hx Cholecystectomy: No Hx Appendectomy: No Hx Breast Surgery: No Additional Surgical History: "rectal repair" after vaginal delivery, Cyst removal on back, Exploratory surgery with abdominal surgery, lump removed from right arm and right breast - Social History Smoking Status: Never Smoker Substance Use Type: None - Medications Home Medications: Home Medications Medication Instructions Recorded Confirmed Last Taken Type Linaclotide [Linzess] 290 mcg PO DAILY 04/07/19 07/20/21 01/17/20 History Liothyronine Sodium [Cytomel] 5 mcg PO DAILY 04/07/19 07/20/21 01/17/20 History Lurasidone HCl [Latuda] 120 mg PO QDAY 04/07/19 07/20/21 01/17/20 History Meclizine [Antivert] 25 mg PO TID PRN 04/07/19 07/20/21 01/17/20 History Topiramate [Qudexy Xr] 1 tab PO DAILY 04/07/19 07/20/21 01/17/20 History Fluticasone/Salmeterol [Advair 1 puff IH BID 04/16/19 07/20/21 01/17/20 History Diskus 250-50 mcg] Levothyroxine [Synthroid] 300 mcg PO QDAY 04/16/19 07/20/21 01/17/20 History Losartan [Cozaar] 100 mg PO QDAY 04/16/19 07/20/21 01/17/20 History Metoprolol Xl [Metoprolol 50 mg PO QDAY 04/16/19 07/20/21 01/17/20 History SUCCINATE ER TAB] diphenhydrAMINE [Benadryl CAP] 50 mg PO QDAY 04/16/19 07/20/21 01/17/20 06:00 History 50 mg Dicyclomine [Bentyl] 10 mg PO QID PRN #20 capsule 04/26/19 07/20/21 01/17/20 Rx Potassium Chloride [K-Dur] 10 meq PO QDAY #7 tablet 05/01/19 07/20/21 01/17/20 Rx clonazePAM [KlonoPIN] 1 mg PO DAILY #10 tablet 05/01/19 07/20/21 01/17/20 Rx 50 mg HYDROcodone/APAP 5-325 [[place] 1 each PO Q6HR PRN #12 tablet 06/01/19 07/20/21 01/17/20 Rx 5-325 mg TAB] Acetaminophen [Acetaminophen 8 650 mg PO Q8H PRN #20 tablet.er 12/02/19 01/18/20 01/17/20 Rx Hour] Cyclobenzaprine [Flexeril 10 MG 10 mg PO QHS PRN #10 tablet 12/02/19 07/20/21 01/17/20 Rx TAB] Famotidine [Acid Controller] 20 mg PO DAILY #30 tablet 01/21/20 07/20/21 Unknown Rx Butalb/Acetamin/Caff 50-325-40 1 tab PO Q8HR PRN #20 tablet 05/25/20 07/20/21 Unknown Rx [Fioricet] Ondansetron [Zofran Odt] 4 mg PO Q8HR PRN #14 tab.rapdis 07/13/20 07/20/21 Unknown Rx ED Physical Exam - General Limitations: No Limitations General appearance: alert, in no apparent distress - Head Head exam: Present: atraumatic, normocephalic - Eye Eye exam: Present: normal appearance, PERRL, EOMI - ENT ENT exam: Present: mucous membranes moist - Neck Neck exam: Present: normal inspection - Respiratory Respiratory exam: Present: normal lung sounds bilaterally. Absent: respiratory distress - Cardiovascular Cardiovascular Exam: Present: regular rate, normal rhythm. Absent: systolic murmur, diastolic murmur, rubs, gallop - GI/Abdominal GI/Abdominal exam: Present: soft, normal bowel sounds. Absent: distended, tenderness - Extremities Exam Extremities exam: Present: normal inspection - Back Exam Back exam: Present: normal inspection - Neurological Exam Neurological exam: Present: alert, oriented X3, CN II-XII intact. Absent: motor sensory deficit - Psychiatric Psychiatric exam: Present: normal affect, normal mood - Skin Skin exam: Present: warm, dry, intact, normal color. Absent: rash ED Course Vital Signs 07/20/21 07/20/21 07/20/21 12:50 13:00 13:01 Temperature Pulse Rate 82 84 Respiratory 21 20 16 Rate Blood Pressure 107/65 Blood Pressure [Right] O2 Sat by Pulse 98 100 98 Oximetry 07/20/21 07/20/21 07/20/21 13:15 13:31 13:45 Temperature Pulse Rate 82 81 81 Respiratory 23 17 19 Rate Blood Pressure 107/65 107/65 107/65 Blood Pressure [Right] O2 Sat by Pulse 100 100 100 Oximetry 07/20/21 07/20/21 07/20/21 14:01 14:30 14:39 Temperature 97.9 F Pulse Rate 80 81 Respiratory 19 20 20 Rate Blood Pressure 134/72 134/72 Blood Pressure 119/74 [Right] O2 Sat by Pulse 97 100 Oximetry 07/20/21 07/20/21 07/20/21 15:00 17:14 17:44 Temperature Pulse Rate Respiratory 20 20 18 Rate Blood Pressure Blood Pressure [Right] O2 Sat by Pulse Oximetry ED Medical Decision Making - Lab Data Result diagrams: 07/20/21 14:46 07/20/21 14:46 Lab Results 07/20/21 07/20/21 07/20/21 Range/Units 14:04 14:46 14:46 WBC 10.1 (4.5-11.0) K/mm3 RBC 3.96 (3.65-5.03) M/mm3 Hgb 10.8 (10.1-14.3) gm/dl Hct 34.2 (30.3-42.9) % MCV 86 (79-97) fl MCH 27 L (28-32) pg MCHC 32 (30-34) % RDW 13.0 L (13.2-15.2) % Plt Count 430 (140-440) K/mm3 Lymph % (Auto) 39.6 H (13.4-35.0) % Travis % (Auto) 6.7 (0.0-7.3) % Eos % (Auto) 1.3 (0.0-4.3) % Baso % (Auto) 1.8 (0.0-1.8) % Lymph # (Auto) 4.0 (1.2-5.4) K/mm3 Travis # (Auto) 0.7 (0.0-0.8) K/mm3 Eos # (Auto) 0.1 (0.0-0.4) K/mm3 Baso # (Auto) 0.2 H (0.0-0.1) K/mm3 Seg Neutrophils % 50.6 (40.0-70.0) % Seg Neutrophils # 5.1 (1.8-7.7) K/mm3 PT 13.4 (12.2-14.9) Sec. INR 0.92 (0.87-1.13) APTT 29.8 (24.2-36.6) Sec. D-Dimer 312.09 H (0-234) ng/mlDDU Sodium (137-145) mmol/L Potassium (3.6-5.0) mmol/L Chloride (98-107) mmol/L Carbon Dioxide (22-30) mmol/L Anion Gap mmol/L BUN (7-17) mg/dL Creatinine (0.6-1.2) mg/dL Estimated GFR ml/min BUN/Creatinine Ratio % Glucose (65-100) mg/dL Calcium (8.4-10.2) mg/dL Total Bilirubin (0.1-1.2) mg/dL AST (5-40) units/L ALT (7-56) units/L Alkaline Phosphatase (35-129) units/L Troponin T (0.00-0.029) ng/mL Total Protein (6.3-8.2) g/dL Albumin (3.9-5) g/dL Albumin/Globulin Ratio % Lipase (13-60) units/L Urine Color (Yellow) Urine Turbidity (Clear) Urine pH (5.0-7.0) Ur Specific [place] (1.003-1.030) Urine Protein (Negative) mg/dL Urine Glucose (UA) (Negative) mg/dL Urine Ketones (Negative) mg/dL Urine Blood (Negative) Urine Nitrite (Negative) Urine Bilirubin (Negative) Urine Urobilinogen (<2.0) mg/dL Ur Leukocyte Esterase (Negative) Urine WBC (Auto) (0.0-6.0) /HPF Urine RBC (Auto) (0.0-6.0) /HPF U Epithel Cells (Auto) (0-13.0) /HPF Urine Mucus /HPF Urine Opiates Screen Negative Urine Methadone Screen Negative Ur Barbiturates Screen Negative Ur Phencyclidine Scrn Negative Ur Amphetamines Screen Negative U Benzodiazepines Scrn Negative Urine Cocaine Screen Negative U Marijuana (THC) Screen Negative Drugs of Abuse Note Disclamer 07/20/21 07/20/21 07/20/21 Range/Units 14:46 17:12 Unknown WBC (4.5-11.0) K/mm3 RBC (3.65-5.03) M/mm3 Hgb (10.1-14.3) gm/dl Hct (30.3-42.9) % MCV (79-97) fl MCH (28-32) pg MCHC (30-34) % RDW (13.2-15.2) % Plt Count (140-440) K/mm3 Lymph % (Auto) (13.4-35.0) % Travis % (Auto) (0.0-7.3) % Eos % (Auto) (0.0-4.3) % Baso % (Auto) (0.0-1.8) % Lymph # (Auto) (1.2-5.4) K/mm3 Travis # (Auto) (0.0-0.8) K/mm3 Eos # (Auto) (0.0-0.4) K/mm3 Baso # (Auto) (0.0-0.1) K/mm3 Seg Neutrophils % (40.0-70.0) % Seg Neutrophils # (1.8-7.7) K/mm3 PT (12.2-14.9) Sec. INR (0.87-1.13) APTT (24.2-36.6) Sec. D-Dimer (0-234) ng/mlDDU Sodium 141 (137-145) mmol/L Potassium 4.2 (3.6-5.0) mmol/L Chloride 102.4 (98-107) mmol/L Carbon Dioxide 24 (22-30) mmol/L Anion Gap 19 mmol/L BUN 10 (7-17) mg/dL Creatinine 0.9 (0.6-1.2) mg/dL Estimated GFR > 60 ml/min BUN/Creatinine Ratio 11 % Glucose 106 H (65-100) mg/dL Calcium 9.6 (8.4-10.2) mg/dL Total Bilirubin 0.20 (0.1-1.2) mg/dL AST 14 (5-40) units/L ALT 14 (7-56) units/L Alkaline Phosphatase 103 (35-129) units/L Troponin T < 0.010 (0.00-0.029) ng/mL Total Protein 7.8 (6.3-8.2) g/dL Albumin 4.2 (3.9-5) g/dL Albumin/Globulin Ratio 1.2 % Lipase 20 (13-60) units/L Urine Color Yellow (Yellow) Urine Turbidity Clear (Clear) Urine pH 5.0 (5.0-7.0) Ur Specific [place] 1.012 (1.003-1.030) Urine Protein <15 mg/dl (Negative) mg/dL Urine Glucose (UA) Neg (Negative) mg/dL Urine Ketones Neg (Negative) mg/dL Urine Blood Neg (Negative) Urine Nitrite Neg (Negative) Urine Bilirubin Neg (Negative) Urine Urobilinogen < 2.0 (<2.0) mg/dL Ur Leukocyte Esterase Neg (Negative) Urine WBC (Auto) 1.0 (0.0-6.0) /HPF Urine RBC (Auto) 1.0 (0.0-6.0) /HPF U Epithel Cells (Auto) 15.0 H (0-13.0) /HPF Urine Mucus Few /HPF Urine Opiates Screen Urine Methadone Screen Ur Barbiturates Screen Ur Phencyclidine Scrn Ur Amphetamines Screen U Benzodiazepines Scrn Urine Cocaine Screen U Marijuana (THC) Screen Drugs of Abuse Note - EKG Data -: EKG Interpreted by Me EKG shows normal: sinus rhythm Rate: normal - Radiology Data Radiology results: report reviewed - Medical Decision Making CT of the chest done due to elevated D-dimer and reports of chest pain x2 weeks Critical care attestation.: If time is entered above; I have spent that time in minutes in the direct care of this critically ill patient, excluding procedure time. ED Disposition Clinical Impression: Nonspecific chest pain Disposition: 01 HOME / SELF CARE / HOMELESS Is pt being admited?: No Does the pt Need Aspirin: No Condition: Stable Instructions: Nonspecific Chest Pain, Adult Additional Instructions: return if worse Referrals: RACHEL COMER MD [Staff Physician] - 3-5 Days Time of Disposition: 19:11
[2021-07-20] MEDS ORDERED: MORPHINE 2 MG/1 ML INJ ONE ×2 (14:22→17:05)
[2021-07-20 14:36] LABS: Bilirubin,Urine NEG (Negative); Blood,Urine NEG (Negative); Color,Urine Yellow (Yellow); Mucus,Urine FEW /HPF; Protein,Urine <15 mg/dL mg/dL (Negative); Urobilinogen,Urine < 2.0 mg/dL (<2.0)
--- NOTE | 2021-07-20 14:40 | XRay Report ---
XR chest 1V ap INDICATION / CLINICAL INFORMATION: chest pain. COMPARISON: 07/13/2020 FINDINGS: SUPPORT DEVICES: None. HEART /PULMONARY VASCULATURE: No significant abnormality. LUNGS / PLEURA: Mildly low lung volumes without focal airspace consolidation or sizable pleural effus ion. No pneumothorax. ADDITIONAL FINDINGS: No significant additional findings. IMPRESSION: 1. No acute findings. Signer Name: Brennan Davis MD Signed: 07/20/2021 2:36 PM Workstation Name: [id number]
[2021-07-20 14:42] LABS: Amphetamine Screen,Urine Negative; Benzodiazepines Screen,Urine Negative; Cannabinoid Screen,Urine Negative; Cocaine Screen,Urine Negative; Methadone Screen,Urine Negative; Opiate Screen,Urine Negative
[2021-07-20 15:09] LABS: Basophils # (Auto) 0.2 K/mm3 (0.0-0.1); Basophils % (Auto) 1.8 % (0.0-1.8); Eosinophils # (Auto) 0.1 K/mm3 (0.0-0.4); Eosinophils % (Auto) 1.3 % (0.0-4.3); Hematocrit 34.2 % (30.3-42.9); Hemoglobin 10.8 gm/dl (10.1-14.3); Lymphocytes % (Auto) 39.6 % (13.4-35.0); Mean Corpuscular HGB Conc 32 % (30-34); Mean Corpuscular Volume 86 fl (79-97); Monocytes # (Auto) 0.7 K/mm3 (0.0-0.8); Monocytes % (Auto) 6.7 % (0.0-7.3); Platelet Count 430 K/mm3 (140-440); Red Blood Count 3.96 M/mm3 (3.65-5.03)
[2021-07-20 15:19] LABS: INR 0.92 (0.87-1.13)
[2021-07-20 15:20] LABS: Partial Thromboplastin Time 29.8 Sec. (24.2-36.6)
[2021-07-20 15:33] LABS: Alanine Aminotransferase 14 units/L (7-56); Albumin 4.2 g/dL (3.9-5); BUN/Creatinine Ratio 11; Blood Urea Nitrogen 10 mg/dL (7-17); Calcium 9.6 mg/dL (8.4-10.2); Hemolysis Index 9
--- NOTE | 2021-07-20 18:12 | Cat Scan Report ---
CTA CHEST WITH CONTRAST INDICATION : CP and elevated ddimer. TECHNIQUE: Axial imaging performed through the chest, with contrast bolus timing set to maximize opa cification of the pulmonary arteries. Sagittal and coronal reformatted images. 3-plane MIP reformatte d images were obtained. All CT scans at this location are performed using CT dose reduction for ALAR A by means of automated exposure control. 100 mL of intravenous contrast administered. COMPARISON: 10/03/2019 FINDINGS: Bolus: Contrast bolus timing is adequate. PTE: No filling defect is present to suggest PTE. Mediastinum: Heart and great vessels appear normal. No pathologic mediastinal adenopathy. Lungs: Lungs are clear. Bones: Degenerative changes in the spine with nothing acute. Upper abdomen: Limited imaging of the upper abdomen shows nothing acute. IMPRESSION: Negative for PTE. Clear lungs. No significant change since 10/03/2019 exam. Signer Name: Reagan Romano Jr, MD Signed: 07/20/2021 6:07 PM Workstation Name: [id number]
[2021-07-20 22:11] VITALS: BP 129/97
--- NOTE | 2021-07-21 17:41 | Electrocardiograph Report ---
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
== END 2021-07-20 19:31 | disposition home or self-care (01) ==
LOC: ED 12:29
DX: R07.89 Other chest pain (principal); E11.9 Type 2 diabetes mellitus without complications; F31.9 Bipolar disorder, unspecified; F41.9 Anxiety disorder, unspecified; E78.00 Pure hypercholesterolemia, unspecified; M79.7 Fibromyalgia; E03.9 Hypothyroidism, unspecified; Z88.6 Allergy status to analgesic agent; Z88.8 Allergy status to other drugs, medicaments and biological substances; Z91.040 Latex allergy status; Z79.899 Other long term (current) drug therapy
CPT/HCPCS: 36415; 71045; 71275; 80053; 80307; 81001; 83690; 84484; 85025; 85379; 85610; 85730; 93005; 96374; 96375; 96376; 99285; J2270; J2405; Q9967

== ENCOUNTER 2021-11-02 08:06 | Day surgery (SDC) | payer MEDICARE ==
[~2021-11-02 08:06] MED LIST: SODIUM CHLORIDE 0.9% 1000 ML 1,000 ML IV SCH
--- NOTE | 2021-11-02 08:36 | Anesthesia Day of Surgery ---
Anesthesia Day of Surgery - Day of Surgery Patient Examined: Yes Patient H&P Reviewed: Yes Patient is NPO: Yes
--- NOTE | 2021-11-02 08:38 | Anesthesia Consultation ---
Anesthesia Consult and Med Hx Date of service: 11/02/21 - Airway Anesthetic Teeth Evaluation: Good ROM Head & Neck: Adequate Mental/Hyoid Distance: Adequate Mallampati Class: Class II Intubation Access Assessment: Good - Pre-Operative Health Status ASA Pre-Surgery Classification: ASA3 Proposed Anesthetic Plan: MAC - Pulmonary Hx Smoking: No Hx Asthma: Yes Hx Respiratory Symptoms: Yes (PURCELL) SOB: Yes COPD: No Hx Pneumonia: No Hx Sleep Apnea: Yes - Cardiovascular System Hx Hypertension: Yes Hx Coronary Artery Disease: No Hx Heart Attack/AMI: No Hx Angina: Yes Hx Percutaneous Transluminal Coronary Angioplasty (PTCA): No Hx Internal Defibrillator: No Hx Valvular Heart Disease: No Hx Heart Murmur: No Hx Peripheral Vascular Disease: No - Central Nervous System Hx Seizures: Yes CVA: No Hx Back Pain: Yes Hx Psychiatric Problems: Yes (Bipolar/Depression/Anxiety) - Gastrointestinal Hx Ulcer: Yes (Ulcer) Hx Gastroesophageal Reflux Disease: No - Endocrine Hx Renal Disease: Yes (stage 3) Hx End Stage Renal Disease: No Hx Cirrhosis: No Hx Liver Disease: No Hx Insulin Dependent Diabetes: No Hx Non-Insulin Dependent Diabetes: Yes (Janumet) Hx Thyroid Disease: Yes Hx Hypothyroidism: Yes Hx Hyperthyroidism: No - Hematic Hx Anemia: Yes Hx Sickle Cell Disease: No - Other Systems Hx Cancer: No Hx Obesity: No
[2021-11-02] MEDS ORDERED: MIDAZOLAM 2 MG/2 ML INJ ONE (08:49)
[2021-11-02] MEDS ORDERED: propofoL 200 MG/20 ML VIAL IV ONE ×3 (08:49→10:03)
[2021-11-02] MEDS ORDERED: LIDOCAINE MPF (2%) 20 MG/1 ML VIAL 5 ML ONE (08:50)
--- NOTE | 2021-11-02 10:12 | Short Stay Summary ---
Short Stay Documentation Date of service: 11/02/21 Narrative H&P: The patient presents for EGD to evaluate recurrent bilious vomiting and for colonoscopy to evaluate LLQ pain. - History Past Medical History: COPD, diabetes, other (SLE, morbid obesity) Social history: other (left breast surgery, left shoulder surgery) - Allergies and Medications Current Medications: Allergies aspirin Allergy (Verified 05/25/20 17:23) Unknown butorphanol tartrate [From Stadol] Allergy (Verified 05/25/20 17:23) Seizure latex Allergy (Verified 05/25/20 17:23) Hives NSAIDS (Non-Steroidal Anti-Inflamma Allergy (Verified 05/25/20 17:23) Unknown Home Medications Medication Instructions Recorded Confirmed Last Taken Type Linaclotide [Linzess] 290 mcg PO DAILY 04/07/19 07/20/21 01/17/20 History Liothyronine Sodium [Cytomel] 5 mcg PO DAILY 04/07/19 07/20/21 01/17/20 History Lurasidone HCl [Latuda] 120 mg PO QDAY 04/07/19 07/20/21 01/17/20 History Meclizine [Antivert] 25 mg PO TID PRN 04/07/19 07/20/21 01/17/20 History Topiramate [Qudexy Xr] 1 tab PO DAILY 04/07/19 07/20/21 01/17/20 History Fluticasone/Salmeterol [Advair 1 puff IH BID 04/16/19 07/20/21 01/17/20 History Diskus 250-50 mcg] Levothyroxine [Synthroid] 300 mcg PO QDAY 04/16/19 07/20/21 01/17/20 History Losartan [Cozaar] 100 mg PO QDAY 04/16/19 07/20/21 01/17/20 History Metoprolol Xl [Metoprolol 50 mg PO QDAY 04/16/19 07/20/21 01/17/20 History SUCCINATE ER TAB] diphenhydrAMINE [Benadryl CAP] 50 mg PO QDAY 04/16/19 07/20/21 01/17/20 06:00 History 50 mg Dicyclomine [Bentyl] 10 mg PO QID PRN #20 capsule 04/26/19 07/20/21 01/17/20 Rx Potassium Chloride [K-Dur] 10 meq PO QDAY #7 tablet 05/01/19 07/20/21 01/17/20 Rx clonazePAM [KlonoPIN] 1 mg PO DAILY #10 tablet 05/01/19 07/20/21 01/17/20 Rx 50 mg HYDROcodone/APAP 5-325 [[place] 1 each PO Q6HR PRN #12 tablet 06/01/19 07/20/21 01/17/20 Rx 5-325 mg TAB] Acetaminophen [Acetaminophen 8 650 mg PO Q8H PRN #20 tablet.er 12/02/19 01/18/20 01/17/20 Rx Hour] Cyclobenzaprine [Flexeril 10 MG 10 mg PO QHS PRN #10 tablet 12/02/19 07/20/21 01/17/20 Rx TAB] Famotidine [Acid Controller] 20 mg PO DAILY #30 tablet 01/21/20 07/20/21 Unknown Rx Butalb/Acetamin/Caff 50-325-40 1 tab PO Q8HR PRN #20 tablet 05/25/20 07/20/21 Unknown Rx [Fioricet] Ondansetron [Zofran Odt] 4 mg PO Q8HR PRN #14 tab.rapdis 07/13/20 07/20/21 Unknown Rx Active Medications Sodium Chloride (Nacl 0.9% 1000 Ml) 1,000 mls @ 50 mls/hr IV DIRECT RAVEN - Physical exam General appearance: no acute distress, well-nourished, obese Integumentary: no rash, no growths, no abnormal pigmentation HEENT: Atraumatic, PERRLA, EOMI, Mucous membr. moist/pink Lungs: Clear to auscultation, Normal air movement Breasts: deferred Heart: Regular rate, Normal S1, Normal S2, No murmurs Gastrointestinal: normoactive bowel sounds, no tenderness, no distended, no masses, no organomegaly, obese Female Genitourinary: deferred Rectal Exam: normal exam-external/orifice, normal rectal tone, no mass Extremities: no ischemia, pulses intact, pulses symmetrical, No edema, normal temperature, normal color, Full ROM Neurological: Normal gait, Normal speech, Strength at 5/5 X4 ext, Normal tone, Sensation intact, Cranial nerves 3-12 NL - Brief post op/procedure progress note Date of procedure: 11/02/21 Findings: see dictation Estimated blood loss: none Pathology: list (antral biopsies for h pylori) Specimen disposition: to lab Condition: stable - Disposition Condition at discharge: Good Disposition: 01 HOME / SELF CARE / HOMELESS - Discharge Diagnoses (1) Nausea and vomiting Status: Acute (2) LLQ abdominal pain Status: Acute Short Stay Discharge Plan Activity: other (no driving for 24 hours) Weight Bearing Status: Full Weight Bearing Diet: diabetic Follow up with: SHARDA PEARCE MD [Primary Care Provider] - 7 Days
--- NOTE | 2021-11-02 10:16 | Operative Report ---
Operative Report Operative Report: Date of procedure: 11/02/2021 Procedure: Esophagogastroduodenoscopy with biopsies of the antrum for H. pylori Preprocedure diagnosis: Recurrent bilious vomiting. Post procedure diagnosis: Normal-appearing upper digestive tract. Endoscopist: Dr. Montes Anesthesia: Monitored anesthesia care per anesthesia department Medications: Propofol per anesthesia Estimated blood loss: 0 After careful discussion of the nature and purpose of the procedure as well as details the technique risks benefits and alternatives consent was obtained. The patient was placed in the left lateral decubitus position and medicated per anesthesia. The tip of the [employer] EQ 570 video scope was passed per orum under direct vision into the esophagus and advanced into the stomach and descending duodenum. The descending duodenum the duodenal bulb and pylorus were symmetrical and normal. The scope was withdrawn into the stomach and the stomach then gently insufflated with air. The antrum was normal. 4 biopsies were taken in the prepyloric area and angularis to assess for possible H. pylori infection. The stomach was further insufflated and the scope was then retroflexed and partially withdrawn. The cardia, fundus, and body of the stomach were within normal limits and easily distensible.The scope was then w ithdrawn in the forward position. The esophagogastric junction was at 36. The Z-line was sharp. The esophageal body was normal throughout. The procedure was was well tolerated and the patient was observed in recovery. Impressions: Normal-appearing upper digestive tract. Plan: Await results of biopsies. The patient will call the office in a week. Consideration of gastric emptying study and gallbladder ultrasound. Electronically signed: Layo Montes MD
--- NOTE | 2021-11-02 10:18 | Operative Report ---
Operative Report Operative Report: Date of procedure: 11/02/2021 Preprocedure diagnosis: Left lower quadrant abdominal pain. Post procedure diagnosis: Normal colon to the proximal transverse colon. Procedure: Colonoscopy to the proximal transverse colon. Exam limited by loop formation. Endoscopist: Dr. Montes Anesthesia: Monitored anesthesia care per anesthesia department Estimated blood loss: 0 Medications: Monitored anesthesia care. See separate report by anesthesia for details. After careful discussion of the nature and purpose of the procedure as well as details of the technique risks benefits and alternatives the patient gave consent. Please see recent history and physical from the office. The patient was placed in the left lateral decubitus position and medicated per anesthesia. A rectal exam was performed sphincter tone was normal there were no masses palpable. The [employer] 570 scope was passed transanally and advanced under continuous direct vision without difficulty to the proximal transverse colon. The colon was well prepared. Abdominal pressure and a change of position was performed however due to loop formation the scope could not be advanced successfully and safely to the cecum. The transverse colon, descending colon, and sigmoid colon were normal. The rectum was normal on forward and retroflexed views. The procedure was well-tolerated overall and the patient was observed in recovery. Conclusions: Normal colonoscopy to the proximal transverse colon. Study limited by loop formation and a redundant colon. Plan: Air-contrast barium enema electively. Signed electronically: Layo Montes M.D.
[2021-11-02 16:38] VITALS: BP 120/77
--- NOTE | 2021-11-02 23:42 | Post Anesthesia Evaluation ---
- Post Anesthesia Evaluation Patient Participated: Yes Airway Patent: Yes Stable Respiratory Function: Yes Nausea/Vomiting: No Temp > 96.8F: Yes Pain Manageable: Yes Adequeate Hydration: Yes Anesthesia Complications: No Block Receding Appropriately: Not Applicable Patient on Ventilator: No
== END 2021-11-02 10:55 | disposition home or self-care (01) ==
LOC: GIO 08:06
PROVIDERS: ATTEND Internal Medicine Gastroenterology
DX: R10.32 Left lower quadrant pain (principal); R11.10 Vomiting, unspecified; E03.9 Hypothyroidism, unspecified; G40.909 Epilepsy, unspecified, not intractable, without status epilepticus; K31.89 Other diseases of stomach and duodenum; E11.69 Type 2 diabetes mellitus with other specified complication; F31.9 Bipolar disorder, unspecified; Z20.822 Contact with and (suspected) exposure to COVID-19; Z88.6 Allergy status to analgesic agent; Z79.899 Other long term (current) drug therapy; Z91.040 Latex allergy status; G62.9 Polyneuropathy, unspecified; Z86.73 Personal history of transient ischemic attack (TIA), and cerebral infarction without residual deficits
CPT/HCPCS: 43239; 45378; 82962; 88305; 88342; J2250; J2704; J3490; J7030; U0003; J7120; Q0162

== ENCOUNTER 2022-04-18 09:42 | Emergency (ER) | payer MEDICARE ==
[2022-04-18 10:26] VITALS: BP 126/82
[2022-04-18 16:58] LABS: HCG Qualitative,Urine Negative (Negative)
[2022-04-18 17:06] LABS: Mucus,Urine FEW /HPF
[2022-04-18 17:35] LABS: Color,Urine Straw (Yellow)
[2022-04-18 17:36] LABS: Bilirubin,Urine Negative (Negative); Blood,Urine Trace (Negative); Protein,Urine <30 mg dL mg/dL (Negative); Urobilinogen,Urine < 2.0 mg/dL (<2.0)
--- NOTE | 2022-04-18 18:06 | Emergency Department Report ---
ED Female HPI - General Chief complaint: Urogenital-Female Stated complaint: ITCHING AND BLEEDING Time Seen by Provider: 04/18/22 13:57 Source: patient Mode of arrival: Ambulatory Limitations: No Limitations - History of Present Illness Initial comments: 46 yo black female with pmh of htn, hld, and Lupus presents to ed for evaluation of few day history of vaginal itching, irritation and dysuria. She states that she has had so much itching that she has scratched so much that she now has some bleeding to her vaginal area. She denies abdominal pain, n/v/d, fever. MD Complaint: dysuria, other (vaginal itching and irritation. ) -: Gradual, days(s) Location: perineum Radiation: non-radiating Severity: moderate Severity scale (0 -10): 5 Quality: burning Consistency: constant Are you Now?: No Associated Symptoms: dysuria. denies: vaginal discharge, vaginal bleeding, abdominal pain, nausea/vomiting, fever/chills, headaches, loss of appetite, hematuria, rash, seizure, shortness of breath, syncope, weakness - Related Data Sexually active: No Home Medications Medication Instructions Recorded Confirmed Last Taken Linaclotide [Linzess] 290 mcg PO DAILY 04/07/19 07/20/21 01/17/20 Liothyronine Sodium [Cytomel] 5 mcg PO DAILY 04/07/19 07/20/21 01/17/20 Lurasidone HCl [Latuda] 120 mg PO QDAY 04/07/19 07/20/21 01/17/20 Meclizine [Antivert] 25 mg PO TID PRN 04/07/19 07/20/21 01/17/20 Topiramate [Qudexy Xr] 1 tab PO DAILY 04/07/19 07/20/21 01/17/20 Fluticasone/Salmeterol [Advair 1 puff IH BID 04/16/19 07/20/21 01/17/20 Diskus 250-50 mcg] Levothyroxine [Synthroid] 300 mcg PO QDAY 04/16/19 07/20/21 01/17/20 Losartan [Cozaar] 100 mg PO QDAY 04/16/19 07/20/21 01/17/20 Metoprolol Xl [Metoprolol 50 mg PO QDAY 07/07/20/21 01/17/20 SUCCINATE ER TAB] diphenhydrAMINE [Benadryl CAP] 50 mg PO QDAY 04/16/19 07/20/21 01/17/20 06:00 50 mg Previous Rx's Medication Instructions Recorded Last Taken Type Dicyclomine [Bentyl] 10 mg PO QID PRN #20 capsule 04/26/19 01/17/20 Rx Potassium Chloride [K-Dur] 10 meq PO QDAY #7 tablet 05/01/19 01/17/20 Rx clonazePAM [KlonoPIN] 1 mg PO DAILY #10 tablet 05/01/19 01/17/20 Rx 50 mg HYDROcodone/APAP 5-325 [[place] 1 each PO Q6HR PRN #12 tablet 06/01/19 01/17/20 Rx 5-325 mg TAB] Acetaminophen [Acetaminophen 8 650 mg PO Q8H PRN #20 tablet.er 12/02/19 01/17/20 Rx Hour] Cyclobenzaprine [Flexeril 10 MG 10 mg PO QHS PRN #10 tablet 12/02/19 01/17/20 Rx TAB] Famotidine [Acid Controller] 20 mg PO DAILY #30 tablet 01/21/20 Unknown Rx Butalb/Acetamin/Caff 50-325-40 1 tab PO Q8HR PRN #20 tablet 05/25/20 Unknown Rx [Fioricet 50-325-40] Ondansetron [Zofran ODT TAB] 4 mg PO Q8HR PRN #14 tab.rapdis 07/13/20 Unknown Rx Fluconazole (Nf) [Diflucan TAB] 150 mg PO ONCE #1 tablet 04/18/22 Unknown Rx Nitrofurantoin [place]/M-Cryst 100 mg PO BID 5 Days #10 capsule 04/18/22 Unknown Rx [Macrobid CAP] Allergies Allergy/AdvReac Type Severity Reaction Status Date / Time aspirin Allergy Unknown Verified 05/25/20 17:23 butorphanol tartrate Allergy Seizure Verified 05/25/20 17:23 [From Stadol] latex Allergy Hives Verified 05/25/20 17:23 NSAIDS (Non-Steroidal Allergy Unknown Verified 05/25/20 17:23 Anti-Inflamma ED Review of Systems ROS: Stated complaint: ITCHING AND BLEEDING Other details as noted in HPI Comment: All other systems reviewed and negative Constitutional: denies: chills, fever Eyes: denies: vision change ENT: denies: congestion Respiratory: denies: shortness of breath Cardiovascular: denies: chest pain, palpitations Gastrointestinal: denies: abdominal pain, nausea, vomiting, diarrhea, hematemesis, melena, hematochezia Genitourinary: dysuria. denies: urgency, frequency, hematuria, discharge Musculoskeletal: denies: back pain Skin: pruritus (in vaginal area. ) Neurological: denies: headache, weakness ED Past Medical Hx - Past Medical History Hx Hypertension: Yes Hx CVA: Yes (2011) Hx Heart Attack/AMI: No Hx Congestive Heart Failure: No Hx Diabetes: Yes Hx Deep Vein Thrombosis: No Hx Pulmonary Embolism: No Hx Liver Disease: No Hx Renal Disease: Yes (stage 3) Hx Sickle Cell Disease: No Hx Arthritis: No Hx Headaches / Migraines: Yes Hx Seizures: Yes Hx Kidney Stones: Yes Hx Psychiatric Treatment: Yes (Bipolar, Panic Attacks, Anxiety, MDD) Hx Asthma: Yes Hx COPD: No Hx Tuberculosis: No Hx Dementia: No Hx HIV: No Additional medical history: lupus, Gastroparesis, Neuropathy,MORBID OBESITY. high cholesterol, Endometriosis,. bipolar, Fibromylagia, hypothyroidism. anxiety PANIC ATTACK, carpal tunnel syndrome - Surgical History Hx Coronary Stent: No Hx Open Heart Surgery: No Hx Internal Defibrillator: No Hx Cholecystectomy: No Hx Appendectomy: No Hx Breast Surgery: No Additional Surgical History: "rectal repair" after vaginal delivery, Cyst removal on back, Exploratory surgery with abdominal surgery, lump removed from right arm and right breast - Social History Smoking Status: Never Smoker - Medications Home Medications: Home Medications Medication Instructions Recorded Confirmed Last Taken Type Linaclotide [Linzess] 290 mcg PO DAILY 04/07/19 07/20/21 01/17/20 History Liothyronine Sodium [Cytomel] 5 mcg PO DAILY 04/07/19 07/20/21 01/17/20 History Lurasidone HCl [Latuda] 120 mg PO QDAY 04/07/19 07/20/21 01/17/20 History Meclizine [Antivert] 25 mg PO TID PRN 04/07/19 07/20/21 01/17/20 History Topiramate [Qudexy Xr] 1 tab PO DAILY 04/07/19 07/20/21 01/17/20 History Fluticasone/Salmeterol [Advair 1 puff IH BID 04/16/19 07/20/21 01/17/20 History Diskus 250-50 mcg] Levothyroxine [Synthroid] 300 mcg PO QDAY 04/16/19 07/20/21 01/17/20 History Losartan [Cozaar] 100 mg PO QDAY 04/16/19 07/20/21 01/17/20 History Metoprolol Xl [Metoprolol 50 mg PO QDAY 04/16/19 07/20/21 01/17/20 History SUCCINATE ER TAB] diphenhydrAMINE [Benadryl CAP] 50 mg PO QDAY 04/16/19 07/20/21 01/17/20 06:00 History 50 mg Dicyclomine [Bentyl] 10 mg PO QID PRN #20 capsule 04/26/19 07/20/21 01/17/20 Rx Potassium Chloride [K-Dur] 10 meq PO QDAY #7 tablet 05/01/19 07/20/21 01/17/20 Rx clonazePAM [KlonoPIN] 1 mg PO DAILY #10 tablet 05/01/19 07/20/21 01/17/20 Rx 50 mg HYDROcodone/APAP 5-325 [[place] 1 each PO Q6HR PRN #12 tablet 06/01/19 07/20/21 01/17/20 Rx 5-325 mg TAB] Acetaminophen [Acetaminophen 8 650 mg PO Q8H PRN #20 tablet.er 12/02/19 01/18/20 01/17/20 Rx Hour] Cyclobenzaprine [Flexeril 10 MG 10 mg PO QHS PRN #10 tablet 12/02/19 07/20/21 01/17/20 Rx TAB] Famotidine [Acid Controller] 20 mg PO DAILY #30 tablet 01/21/20 07/20/21 Unknown Rx Butalb/Acetamin/Caff 50-325-40 1 tab PO Q8HR PRN #20 tablet 05/25/20 07/20/21 Unknown Rx [Fioricet 50-325-40] Ondansetron [Zofran ODT TAB] 4 mg PO Q8HR PRN #14 tab.rapdis 07/13/20 07/20/21 Unknown Rx Fluconazole (Nf) [Diflucan TAB] 150 mg PO ONCE #1 tablet 04/18/22 Unknown Rx Nitrofurantoin [place]/M-Cryst 100 mg PO BID 5 Days #10 capsule 04/18/22 Unknown Rx [Macrobid CAP] ED Physical Exam - General Limitations: No Limitations General appearance: alert, in no apparent distress - Head Head exam: Present: atraumatic, normocephalic - Eye Eye exam: Present: normal appearance. Absent: conjunctival injection - Neck Neck exam: Present: normal inspection. Absent: lymphadenopathy - Respiratory Respiratory exam: Present: normal lung sounds bilaterally. Absent: respiratory distress - Cardiovascular Cardiovascular Exam: Present: tachycardia, normal heart sounds - GI/Abdominal GI/Abdominal exam: Present: soft, normal bowel sounds. Absent: distended, tenderness - External exam: Present: erythema, swelling, bleeding - Back Exam Back exam: Present: normal inspection. Absent: CVA tenderness (R), CVA tenderness (L) - Neurological Exam Neurological exam: Present: alert, oriented X3 - Psychiatric Psychiatric exam: Present: normal affect, normal mood - Skin Skin exam: Present: warm, dry, intact, normal color ED Course Vital Signs 04/18/22 04/18/22 04/18/22 10:22 10:26 18:37 Temperature 98.9 F Pulse Rate 104 H 105 H 100 H Respiratory 14 14 14 Rate Blood Pressure 126/82 Blood Pressure 126/82 126/82 [Right] O2 Sat by Pulse 96 96 100 Oximetry ED Medical Decision Making - Medical Decision Making 46 yo black female with pmh of htn, hld, and Lupus presents to ed for evaluation of few day history of vaginal itching, irritation and dysuria. She states that she has had so much itching that she has scratched so much that she now has some bleeding to her vaginal area. She denies abdominal pain, n/v/d, fever. Physical exam consistent with yeast vaginitis. Urine positive for UTI. Patient will be discharged home with keflex and diflucan. She is advised to follow up with her pcp or return to ed as needed. She verbalized understanding of and agreement with plan of care. Critical care attestation.: If time is entered above; I have spent that time in minutes in the direct care of this critically ill patient, excluding procedure time. ED Disposition Clinical Impression: Yeast vaginitis UTI (urinary tract infection) Qualifiers: Urinary tract infection type: acute cystitis Hematuria presence: without hematuria Qualified Code(s): N30.00 - Acute cystitis without hematuria Disposition: 01 HOME / SELF CARE / HOMELESS Is pt being admited?: No Does the pt Need Aspirin: No Condition: Stable Instructions: Antibiotic Medicine, Adult, [id number], Vaginal Yeast Infection, Adult, Urinary Tract Infection, Adult, [id number] Additional Instructions: Take medications as prescribed. Follow-up with your primary care provider if no improvement or worsening symptoms. Return to the emergency department as needed. Prescriptions: Fluconazole (Nf) [Diflucan TAB] 150 mg PO ONCE #1 tablet Nitrofurantoin [place]/M-Cryst [Macrobid CAP] 100 mg PO BID 5 Days #10 capsule Referrals: PRIMARY CARE, [Primary Care Provider] - 3-5 Days Time of Disposition: 18:06
== END 2022-04-18 18:37 | disposition home or self-care (01) ==
LOC: ED 09:42
DX: B37.3 Candidiasis of vulva and vagina (principal); N39.0 Urinary tract infection, site not specified; I10 Essential (primary) hypertension; E11.9 Type 2 diabetes mellitus without complications; J45.909 Unspecified asthma, uncomplicated; Z88.8 Allergy status to other drugs, medicaments and biological substances; Z88.6 Allergy status to analgesic agent; Z91.040 Latex allergy status
CPT/HCPCS: 81001; 81025; 87086; 99283